=== PATIENT | male | born 1950 | race Caucasian/White ===

== ENCOUNTER → 2016-10-01 | Outpatient (CLI) | payer MEDICARE ==
[2016-10-01 16:09] LABS: Anisocytosis Moderate; Basophils % (A) 1 %; CHCM 33.8; Eosinophils % (A) 1 %; HCT 29.9 % (39.0-53.0); HGB 9.7 gm/dL (13.0-17.5); Luc # (Auto) 0.09; Luc % (Auto) 3; Lymphocytes # (A) 0.4 k/uL (1.0-4.8); Lymphocytes % (A) 12 %; MCH 37.7 pg (25.0-35.0); MCHC 32.5 g/dL (31.0-37.0); MCV 115.9 fL (80.0-100.0); Macrocytosis Marked; Mean Platelet Volume 6.7; Monocytes # (A) 0.2 k/uL (0-1.0); Monocytes % (A) 8 %; Neutrophils # (A) 2.1 k/uL (1.3-7.7); Neutrophils % (A) 75 %; Poikilocytosis Moderate; RBC 2.58 m/uL (4.30-5.90); RDW 20.9 % (11.5-15.5); WBC 2.8 k/uL (3.8-10.6); WBC (Perox) 2.94
[2016-10-01 16:24] LABS: Phosphorous 3.3 mg/dL (2.5-4.5); Potassium 4.6 mmol/L (3.5-5.1); Total Protein 5.9 g/dL (6.3-8.2)
[2016-10-01 16:37] LABS: Polychromasia Present
[2016-10-01 17:58] LABS: Bilirubin, Delta 0.5 mg/dL (0.0-0.2); Calcium 9.4 mg/dL (8.4-10.2); Total Bilirubin 0.9 mg/dL (0.2-1.3)
[2016-10-01 19:11] LABS: Hemoglobin A1C 4.5 % (4.2-6.1)
== END | disposition home or self-care (01) ==
LOC: LABWHC1 15:27
PROVIDERS: ATTEND Psychiatry & Neurology Neurology
DX: E11.8 Type 2 diabetes mellitus with unspecified complications (principal); G04.81 Other encephalitis and encephalomyelitis
CPT/HCPCS: 36415; 80069; 80076; 83036; 85025

== ENCOUNTER → 2019-07-25 | Outpatient (CLI) | payer MEDICARE ==
--- NOTE | 2019-07-25 13:17 | CT ---
EXAMINATION TYPE: CT abdomen pelvis wo con DATE OF EXAM: 07/25/2019 COMPARISON: 11/28/2010 HISTORY: possible renal stone CT DLP: 1305 mGycm Examination of the solid and hollow viscera is limited given the lack of contrast. FINDINGS: LUNG BASES: Right lower lobe pleural effusion with AP dimension of 6 cm. Right basilar atelectasis an d parenchymal scarring. Granuloma left lower lobe. LIVER/GB: Cholecystectomy clips are noted be in place. No space-occupying hepatic lesion. PANCREAS: No pancreatic mass identified. No inflammatory process seen. SPLEEN: No evidence for splenomegaly. No intrasplenic lesions seen. ADRENALS: No adrenal nodules identified. No evidence for thickening. KIDNEYS: No evidence for renal mass. No nephrolithiasis. No hydronephrosis. BOWEL: Appendix has a normal appearance. No evidence of bowel obstruction. No inflammatory process. Lymph nodes: No evidence for adenopathy greater than 1 cm. Abdominal aorta: Atheromatous changes seen. No evidence for aneurysm. Genital organs: No significant abnormality. Other: No significant abnormality. IMPRESSION: 1. No evidence for nephrolithiasis or hydronephrosis. 2. Right basilar pleural effusion with atelectasis and chronic elevation right hemidiaphragm.
== END | disposition home or self-care (01) ==
LOC: RADCTMAIN 12:33
PROVIDERS: ATTEND Urology
DX: N23 Unspecified renal colic (principal); Z88.0 Allergy status to penicillin
CPT/HCPCS: 74176

== ENCOUNTER 2021-03-21 15:24 | Inpatient (IN) | payer MEDICARE ==
--- NOTE | 2021-03-21 15:43 | ED ---
SOB HPI - General Chief Complaint: Shortness of Breath Stated Complaint: high heart rate & SOB Time Seen by Provider: 03/21/21 15:32 Source: patient, family, RN notes reviewed, old records reviewed Mode of arrival: wheelchair Limitations: no limitations - History of Present Illness Initial Comments: This is a 70-year-old male history of multiple medical issues and pulmonary edema and atrial fibrillation in the past who presents with complaints of shor tness of breath this started yesterday and continued this morning some exertional dyspnea and heart rate went up to 9570 range. He has no chest pain fevers chills nausea vomiting sweats no increased edema to lower extremities he has tried use his CPAP more this morning it did help his breathing somewhat. No other current complaints or modifying factors patient does have to be helped with transfer by his . MD Complaint: shortness of breath - Related Data Home Medications Medication Instructions Recorded Confirmed Amiodarone [Cordarone] 100 mg PO DAILY 10/02/14 03/21/21 Tamsulosin HCl [Flomax] 0.4 mg PO BID 06/19/15 03/21/21 amLODIPine [Norvasc] 5 mg PO DAILY 07/09/16 03/21/21 Allopurinol [Zyloprim] 100 mg PO DAILY 03/21/21 03/21/21 Apixaban [Eliquis] 5 mg PO BID 03/21/21 03/21/21 Cholecalciferol [Vitamin D3 (25 25 mcg PO DAILY 03/21/21 03/21/21 Mcg = 1000 Iu)] Ferrous Sulfate [Feosol] 325 mg PO DAILY 03/21/21 03/21/21 Folic Acid 0.8 mg PO DAILY 03/21/21 03/21/21 INSULIN ASPART (NovoLOG) [NovoLOG 25 - 30 unit SQ AC-TID 03/21/21 03/21/21 (formulary)] Insulin Glargine [Lantus] 36 unit SQ HS 03/21/21 03/21/21 Metoprolol Succinate [Toprol XL] 12.5 mg PO DAILY 03/21/21 03/21/21 Pravastatin Sodium [Pravachol] 40 mg PO HS 03/21/21 03/21/21 calcitrioL [Calcitriol] 0.25 mcg PO SALAZAR 03/21/21 03/21/21 hydrALAZINE HCL [Apresoline] 75 mg PO BID 03/21/21 03/21/21 Previous Rx's Medication Instructions Recorded Furosemide [Lasix] 40 mg PO BID@0900,1600 #60 tab 07/14/16 Allergies Allergy/AdvReac Type Severity Reaction Status Date / Time Penicillins Allergy Unknown Rash/Hives Verified 03/21/21 17:00 adhesive AdvReac Unknown Verified 03/21/21 17:00 Review of Systems ROS Statement: Those systems with pertinent positive or pertinent negative responses have been documented in the HPI. ROS Other: All systems not noted in ROS Statement are negative. Past Medical History Past Medical History: Atrial Fibrillation, Atrial Flutter, Diabetes Mellitus, Deep Vein Thrombosis (DVT), GERD/Reflux, Hyperlipidemia, Hypertension, Myocardial Infarction (CT), Neurologic Disorder, Prostate Disorder, Sleep Apnea/CPAP/BIPAP Additional Past Medical History / Comment(s): HX OF POLYPS, BLOOD IN STOOL,u ti's, arthritis, past tailbone fx per old hx and neuropathy to feet.UPPER BRIDGE. HX encephalopathy, meningioma. PT CAN'T HAVE ANY VACCINES THAT ARE LIVE VIRUSES. PLEASE USE PAPER TAPE ONLY(PT HAS THIN SKIN) NO LONGER TAKING MEDS FOR HYPERLIPIDEMia, since meningioma lt non dominant side was affected-able to use arm now but not lt leg. uses slide board at home to transfer pt to w/e but with 2 to assist pt can stand/pivot to chair Last Myocardial Infarction Date:: 02-11-2014 History of Any Multi-Drug Resistant Organisms: None Reported Past Surgical History: Adenoidectomy, Cardiac Ablation, Cholecystectomy, Coronary Bypass/CABG, Heart Catheterization With Stent, Orthopedic Surgery, Tonsillectomy Additional Past Surgical History / Comment(s): triple bypass, knee surg., Meningioma Removed from Brain 04/2013.peg tube, DESTINEY FILTER, RHOIT CATARACTS- LENS IMPLANTS, COLONOSCOPY/POLYPECTOMY, RT KNEE ARTHROSCOPY Past Anesthesia/Blood Transfusion Reactions: No Reported Reaction Date of Last Stent Placement:: 2004 Past Psychological History: Depression Smoking Status: Current every day smoker Past Alcohol Use History: None Reported Past Drug Use History: None Reported - Past Family History Father History Unknown: Yes Family Medical History: Congestive Heart Failure (CHF) Mother History Unknown: Yes Additional Family Medical History / Comment(s): STILL ALIVE AT AGE 90 IN [facility] General Exam - General Exam Comments Initial Comments: This is a well-developed well-nourished awake alert oriented 3 male Limitations: no limitations General appearance: alert Head exam: Present: atraumatic, normocephalic, normal inspection Eye exam: Present: normal appearance, PERRL, EOMI. Absent: scleral icterus, conjunctival injection, periorbital swelling ENT exam: Present: normal exam, mucous membranes moist Neck exam: Present: normal inspection. Absent: tenderness, meningismus, lym phadenopathy Respiratory exam: Present: rales, decreased breath sounds. Absent: respiratory distress, wheezes, rhonchi, stridor Cardiovascular Exam: Present: regular rate, normal rhythm, normal heart sounds. Absent: systolic murmur, diastolic murmur, rubs, gallop, clicks GI/Abdominal exam: Present: soft, normal bowel sounds. Absent: distended, tenderness, guarding, rebound, rigid Extremities exam: Present: full ROM, normal capillary refill, other (Stasis changes to lower extremities). Absent: tenderness, pedal edema, joint swelling, calf tenderness Back exam: Present: normal inspection Neurological exam: Present: alert, oriented X3, CN II-XII intact Psychiatric exam: Present: normal affect, normal mood Skin exam: Present: warm, dry, intact, normal color. Absent: rash Course Vital Signs 03/21/21 03/21/21 03/21/21 15:26 15:58 16:18 Temperature 98.5 F 99.1 F Pulse Rate 97 92 Respiratory 16 20 Rate Blood Pressure 138/76 151/74 O2 Sat by Pulse 97 94 L Oximetry 03/21/21 17:48 Temperature Pulse Rate 88 Respiratory 20 Rate Blood Pressure 151/74 O2 Sat by Pulse 98 Oximetry Medical Decision Making - Medical Decision Making I did discuss findings the patient and his as well as with Dr. Jon. Patient be admitted for inpatient evaluation and treatment - Lab Data Result diagrams: 03/21/21 15:56 03/21/21 15:56 Lab Results 03/21/21 03/21/21 03/21/21 Range/Units 15:56 15:56 15:56 WBC 9.8 (3.8-10.6) k/uL RBC 3.50 L (4.30-5.90) m/uL Hgb 10.8 L (13.0-17.5) gm/dL Hct 32.0 L (39.0-53.0) % MCV 91.4 (80.0-100.0) fL MCH 31.0 (25.0-35.0) pg MCHC 33.9 (31.0-37.0) g/dL RDW 14.7 (11.5-15.5) % Plt Count 289 (150-450) k/uL MPV 7.1 Neutrophils % 85 % Lymphocytes % 4 % Monocytes % 9 % Eosinophils % 1 % Basophils % 1 % Neutrophils # 8.3 H (1.3-7.7) k/uL Lymphocytes # 0.4 L (1.0-4.8) k/uL Monocytes # 0.9 (0-1.0) k/uL Eosinophils # 0.1 (0-0.7) k/uL Basophils # 0.1 (0-0.2) k/uL PT 11.5 (9.0-12.0) sec INR 1.1 (<1.2) APTT 24.8 (22.0-30.0) sec Sodium 141 (137-145) mmol/L Potassium 3.9 (3.5-5.1) mmol/L Chloride 107 (98-107) mmol/L Carbon Dioxide 15 L (22-30) mmol/L Anion Gap 19 mmol/L BUN 62 H (9-20) mg/dL Creatinine 3.97 H (0.66-1.25) mg/dL Est GFR (CKD-EPI)AfAm 16 (>60 ml/min/1.73 sqM) Est GFR (CKD-EPI)NonAf 14 (>60 ml/min/1.73 sqM) Glucose 259 H (74-99) mg/dL Calcium 10.5 H (8.4-10.2) mg/dL Magnesium 2.4 H (1.6-2.3) mg/dL Total Bilirubin 0.6 (0.2-1.3) mg/dL AST 20 (17-59) U/L ALT 21 (4-49) U/L Alkaline Phosphatase 133 H (38-126) U/L Creatine Kinase 65 (55-170) U/L Troponin I (0.000-0.034) ng/mL NT-Pro-B Natriuret Pep pg/mL Total Protein 7.2 (6.3-8.2) g/dL Albumin 4.5 (3.5-5.0) g/dL 03/21/21 03/21/21 Range/Units 15:56 15:56 WBC (3.8-10.6) k/uL RBC (4.30-5.90) m/uL Hgb (13.0-17.5) gm/dL Hct (39.0-53.0) % MCV (80.0-100.0) fL MCH (25.0-35.0) pg MCHC (31.0-37.0) g/dL RDW (11.5-15.5) % Plt Count (150-450) k/uL MPV Neutrophils % % Lymphocytes % % Monocytes % % Eosinophils % % Basophils % % Neutrophils # (1.3-7.7) k/uL Lymphocytes # (1.0-4.8) k/uL Monocytes # (0-1.0) k/uL Eosinophils # (0-0.7) k/uL Basophils # (0-0.2) k/uL PT (9.0-12.0) sec INR (<1.2) APTT (22.0-30.0) sec Sodium (137-145) mmol/L Potassium (3.5-5.1) mmol/L Chloride (98-107) mmol/L Carbon Dioxide (22-30) mmol/L Anion Gap mmol/L BUN (9-20) mg/dL Creatinine (0.66-1.25) mg/dL Est GFR (CKD-EPI)AfAm (>60 ml/min/1.73 sqM) Est GFR (CKD-EPI)NonAf (>60 ml/min/1.73 sqM) Glucose (74-99) mg/dL Calcium (8.4-10.2) mg/dL Magnesium (1.6-2.3) mg/dL Total Bilirubin (0.2-1.3) mg/dL AST (17-59) U/L ALT (4-49) U/L Alkaline Phosphatase (38-126) U/L Creatine Kinase (55-170) U/L Troponin I 0.029 (0.000-0.034) ng/mL NT-Pro-B Natriuret Pep 2530 pg/mL Total Protein (6.3-8.2) g/dL Albumin (3.5-5.0) g/dL - EKG Data -: EKG Interpreted by Me EKG shows normal: sinus rhythm EKG Comments: Sinus rhythm at 97. Interval 196 QRS 106 QT since QTC 396/[address]-T wave configuration prolonged QT noted - Radiology Data Radiology results: report reviewed (Imaging reviewed evidence of CHF with pleural effusions more on the right and the left question of infiltrate also seen. Please see complete report), image reviewed Critical Care Time Critical Care Time: Yes Total Critical Care Time: 31 Critical Care Time: Critical care time includes initial presentation with history physical labs x- rays reevaluation patient. Review of old charting. Discussed with the main physician discussion the family. Admission orders and documentation of the above Disposition Clinical Impression: Congestive heart failure, Acute kidney injury, Febrile illness, acute, Pn eumonia, Dyspnea Disposition: ADMITTED IP TO THIS [facility] Condition: Fair Referrals: Pablo Jon MD [Primary Care Provider] - 1-2 days
[2021-03-21 16:05] LABS: Basophils # (A) 0.1 k/uL (0-0.2); Basophils % (A) 1 %; Eosinophils # (A) 0.1 k/uL (0-0.7); Eosinophils % (A) 1 %; HGB 10.8 gm/dL (13.0-17.5); Lymphocytes # (A) 0.4 k/uL (1.0-4.8); Lymphocytes % (A) 4 %; MCHC 33.9 g/dL (31.0-37.0); MCV 91.4 fL (80.0-100.0); Mean Platelet Volume 7.1; Monocytes # (A) 0.9 k/uL (0-1.0); Monocytes % (A) 9 %; Neutrophils # (A) 8.3 k/uL (1.3-7.7); Neutrophils % (A) 85 %; Platelet Count 289 k/uL (150-450); RDW 14.7 % (11.5-15.5); WBC 9.8 k/uL (3.8-10.6)
[2021-03-21 16:18] LABS: Albumin 4.5 g/dL (3.5-5.0); Calcium 10.5 mg/dL (8.4-10.2); Magnesium 2.4 mg/dL (1.6-2.3); Potassium 3.9 mmol/L (3.5-5.1); Total Bilirubin 0.6 mg/dL (0.2-1.3); Total Protein 7.2 g/dL (6.3-8.2)
[2021-03-21 16:23] LABS: INR 1.1 (<1.2); Partial Thromboplastin Time 24.8 sec (22.0-30.0); Prothrombin Time 11.5 sec (9.0-12.0)
--- NOTE | 2021-03-21 17:20 | XR ---
EXAMINATION TYPE: XR chest 2V DATE OF EXAM: 03/21/2021 COMPARISON: Chest x-ray July 09, 2016 HISTORY: Shortness of breath and tachycardia TECHNIQUE: Frontal and lateral views of the chest are obtained. FINDINGS: Overlying sternal wires are redemonstrated. Persistent mild cardiomegaly. Persistent low l arya volumes with central vascular congestion and right mid to basilar opacity. Small to moderate righ t greater than left pleural effusions. IMPRESSION: Low lung volumes. Correlate for CHF exacerbation as there is cardiomegaly with mild cent ral vascular congestion and small to moderate size right greater than left pleural effusions. In tarik tion there is underlying right mid to lower lung acute infiltrate and/or atelectasis thought Present.
[2021-03-21] MEDS ORDERED: FUROSEMIDE 10 MG/ML 4 ML VIAL IV STA (17:58)
[2021-03-21] MEDS ORDERED: LEVOFLOXACIN 500MG-D5W PMX 500 MG in DEXTROSE/WATER 1 100ML.BAG IVPB STA (18:09)
[2021-03-21] MEDS: PRAVASTATIN SODIUM 40 MG TAB PO SCH (22:01)
[2021-03-21] MEDS: hydrALAZINE HCL 25 MG TAB PO SCH (22:01)
[2021-03-21] MEDS: APIXABAN 5 MG TAB PO SCH (22:01)
[2021-03-21] MEDS: TAMSULOSIN 0.4 MG CAP.ER.24H PO SCH (22:01)
[2021-03-21] MEDS: FUROSEMIDE 10 MG/ML 4 ML VIAL IV SCH (22:01)
[2021-03-21] MEDS: INSULIN DETEMIR (LEVEMIR) 100 UNIT/ML SYR SQ SCH (22:10)
[2021-03-22] MEDS ORDERED: METOPROLOL SUCCINATE (ER) 25 MG TAB.ER.24H PO SCH (09:00)
[2021-03-22] MEDS ORDERED: CHOLECALCIFEROL 25 MCG (1000 IU) TABLET PO SCH (09:00)
[2021-03-22] MEDS ORDERED: FUROSEMIDE 40 MG TAB PO SCH ×2 (09:00)
[2021-03-22] MEDS: FUROSEMIDE 10 MG/ML 4 ML VIAL IV SCH ×2 (09:49→20:53)
[2021-03-22] MEDS: amLODIPine 5 MG TAB PO SCH (09:50)
[2021-03-22] MEDS: FERROUS SULFATE 325 MG TAB PO SCH (09:50)
[2021-03-22] MEDS: APIXABAN 5 MG TAB PO SCH ×2 (09:51→20:52)
[2021-03-22] MEDS: FOLIC ACID 1 MG TAB PO SCH (09:51)
[2021-03-22] MEDS: METOPROLOL SUCCINATE (ER) 25 MG TAB.ER.24H PO SCH (09:52)
[2021-03-22] MEDS: allopurinoL 100 MG TAB PO SCH (09:52)
[2021-03-22] MEDS: TAMSULOSIN 0.4 MG CAP.ER.24H PO SCH ×2 (09:52→20:52)
[2021-03-22] MEDS: hydrALAZINE HCL 25 MG TAB PO SCH ×2 (09:52→20:52)
[2021-03-22] MEDS: INSULIN ASPART (NovoLOG) 100 UNIT/ML VIAL SQ SCH ×3 (11:19→17:17)
[2021-03-22 11:20] LABS: Glucose,Whole Blood 308 mg/dL (75-99)
[2021-03-22] MEDS: AMIODARONE 100 MG TAB PO SCH (11:23)
--- NOTE | 2021-03-22 11:59 | CONS ---
CONSULTATION CHIEF COMPLAINT: Shortness of breath and palpitations. HISTORY OF PRESENT ILLNESS: Mr. Guzman is a 70-year-old gentleman with history of coronary artery disease status post CABG, paroxysmal atrial fibrillation, history of benign brain tumor status post surgery with left lower extremity paralysis who comes to the hospital complaining of shortness of breath, fatigue, tiredness and not feeling well for the last few days and also had fast heart rate. Due to this, he came to the hospital and is admitted with a diagnosis of congestive heart failure. His BNP was elevated. He has pulmonary congestion and mild lower extremity edema bilaterally. At the time of my evaluation, he appears comfortable at rest. Heart rate is in the 90s. Blood pressure is well controlled. The patient is in sinus rhythm. Normally his heart rate is in the 70s. He does not have any chest pain. He denies PND or orthopnea. The patient's physical activity is very limited. He ambulates with a wheelchair. He has apixaban for anticoagulation. PAST MEDICAL HISTORY: Significant for paroxysmal atrial fibrillation, coronary artery disease status post CABG, hypertension, dyslipidemia, diabetes. Sleep apnea on BiPAP ALLERGIES: THE PATIENT IS ALLERGIC TO PENICILLIN AND ADHESIVE TAPE. CURRENT MEDICATIONS: Include insulin, Toprol-XL, Pravachol 40 daily, hydralazine 75 b.i.d., iron, amiodarone 100 mg daily, Flomax 0.4 b.i.d., Norvasc 5 daily, Zyloprim and Eliquis 5 b.i.d. FAMILY HISTORY: Negative for premature coronary artery disease. SOCIAL HISTORY: Negative for current smoking, EtOH abuse, or drug abuse. REVIEW OF SYSTEMS: HEENT is unremarkable.. CARDIAC as described above. RESPIRATORY as described above. GI negative. GENITOURINARY: Negative. ALLERGY/IMMUNOLOGY: None. SKIN negative. MUSCULOSKELETAL: Significant for arthritis. PSYCHOSOCIAL negative. ENDOCRINE: Negative. DERM negative. CONSTITUTIONAL: Significant for fatigue and tiredness. ONCOLOGICAL: Negative. Rest of the system review is not relevant. PHYSICAL EXAMINATION: On exam, patient is comfortable at rest. Afebrile. Heart rate is 90 beats per minute. Blood pressure is 148/84, respiratory rate is 18, O2 saturation is 98% on 2 L. NECK: There is no jugular venous distention. CHEST exam reveals diminished air entry with occasional crackles. HEART exam reveals first and second heart sounds and an ejection systolic murmur at the lower sternal border. ABDOMEN: Soft. Exam of EXTREMITIES reveals bilateral 2+ pitting edema. Peripheral pulses are palpable. LABS: Show a hemoglobin of 10.8. Potassium is 3.9. BUN is 62, creatinine is 3.9. BNP is elevated at 2530. EKG shows sinus rhythm with nonspecific ST-T wave changes. ASSESSMENT: 1. Acute exacerbation of chronic congestive heart failure. 2. Paroxysmal atrial fibrillation. 3. Coronary artery disease status post coronary artery bypass grafting. 4. History of meningioma of the brain status post surgery. 5. Paralysis of the left lower extremity. 6. Hypertension. PLAN: I will treat the patient with IV Lasix, increase the dose of beta smith. Obtain a 2D echo. Continue the current antihypertensives that he is on and also continue the Eliquis. If necessary, I will increase the dose of amiodarone to 200 mg daily. The patient has chronic renal failure. MMODL / IJN: [id number] /
--- NOTE | 2021-03-22 12:00 | P.NPCON ---
History of Present Illness - Reason for Consult chronic renal failure - History of Present Illness Reason for consultation: Chronic kidney disease History of present illness: Patient is a 70-year-old male seen in renal consultation for chronic kidney disease. Patient has chronic kidney disease stage V secondary to cardiorenal syndrome and diabetic kidney disease. Patient presented to the hospital with shortness of breath. Patient states shortness of breath started about 3 days ago after he returned from [place]. Patient states while he was a [place] he wasn't drinking much fluids. He has been voiding. No hematuria or dysuria. Denies use of nonsteroidals. Oral intake is fair. No vomiting or diarrhea. Blood pressures stable. Chest x-ray suggestive of fluid overload. He is maintained on IV Lasix. Currently on 2 L nasal cannula. Patient has history of diastolic CHF. No fever or chills. No cough. No abdominal pain. No edema. He does take oral Lasix at home. He has long- standing history of diabetes mellitus. Patient states recent A1c was near 7%. Vital signs are stable. General: The patient appeared well nourished and normally developed. HEENT: Head exam is unremarkable. Neck is without jugular venous distension. LUNGS: Breath sounds decreased. HEART: Rate and Rhythm are regular. ABDOMEN: Soft, no distention. EXTREMITITES: No edema. Past Medical History Past Medical History: Atrial Fibrillation, Atrial Flutter, Diabetes Mellitus, Deep Vein Thrombosis (DVT), GERD/Reflux, Hyperlipidemia, Hypertension, Myocardial Infarction ([place]), Neurologic Disorder, Prostate Disorder, Sleep Apnea/CPAP/BIPAP Additional Past Medical History / Comment(s): HX OF POLYPS, BLOOD IN STOOL,uti's, arthritis, past tailbone fx per old hx and neuropathy to feet.UPPER BRIDGE. HX encephalopathy, meningioma. PT CAN'T HAVE ANY VACCINES THAT ARE LIVE VIRUSES. PLEASE USE PAPER TAPE ONLY(PT HAS THIN SKIN) NO LONGER TAKING MEDS FOR HYPERLIPIDEMia, since meningioma lt non dominant side was affected-able to use arm now but not lt leg. uses slide board at home to transfer pt to w/e but with 2 to assist pt can stand/pivot to chair Last Myocardial Infarction Date:: 02-11-2005 History of Any Multi-Drug Resistant Organisms: None Reported Past Surgical History: Adenoidectomy, Cardiac Ablation, Cholecystectomy, Coronary Bypass/CABG, Heart Catheterization With Stent, Orthopedic Surgery, Tonsillectomy Additional Past Surgical History / Comment(s): triple bypass, knee surg., Meningioma Removed from Brain 04/2013.peg tube, DESTINEY FILTER, ROHIT CATARACTS- LENS IMPLANTS, COLONOSCOPY/POLYPECTOMY, RT KNEE ARTHROSCOPY Past Anesthesia/Blood Transfusion Reactions: No Reported Reaction Date of Last Stent Placement:: 2004 Additional Psychological History / Comment(s): PT UNABLE TO AMBULATE BUT ABLE TO STAND WITH ASSIST OF 2 /PIVOT TO W/C OR MOTORIZED CHAIR. 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 Smoking Status: Never smoker Past Alcohol Use History: None Reported Past Drug Use History: None Reported - Past Family History Father History Unknown: Yes Family Medical History: Congestive Heart Failure (CHF) Mother History Unknown: Yes Additional Family Medical History / Comment(s): STILL ALIVE AT AGE 90 IN [facility] Medications and Allergies Home Medications Medication Instructions Recorded Confirmed Type Amiodarone [Cordarone] 100 mg PO DAILY 10/02/14 03/21/21 History Tamsulosin HCl [Flomax] 0.4 mg PO BID 06/19/15 03/21/21 History amLODIPine [Norvasc] 5 mg PO DAILY 07/09/16 03/21/21 History Furosemide [Lasix] 40 mg PO BID@0900,1600 #60 tab 07/14/16 03/21/21 Rx Allopurinol [Zyloprim] 100 mg PO DAILY 03/21/21 03/21/21 History Apixaban [Eliquis] 5 mg PO BID 03/21/21 03/21/21 History Cholecalciferol [Vitamin D3 (25 25 mcg PO DAILY 03/21/21 03/21/21 History Mcg = 1000 Iu)] Ferrous Sulfate [Feosol] 325 mg PO DAILY 03/21/21 03/21/21 History Folic Acid 0.8 mg PO DAILY 03/21/21 03/21/21 History INSULIN ASPART (NovoLOG) [NovoLOG 25 - 30 unit SQ AC-TID 03/21/21 03/21/21 History (formulary)] Insulin Glargine [Lantus] 36 unit SQ HS 03/21/21 03/21/21 History Metoprolol Succinate [Toprol XL] 12.5 mg PO DAILY 03/21/21 03/21/21 History Pravastatin Sodium [Pravachol] 40 mg PO HS 03/21/21 03/21/21 History calcitrioL [Calcitriol] 0.25 mcg PO SALAZAR 03/21/21 03/21/21 History hydrALAZINE HCL [Apresoline] 75 mg PO BID 03/21/21 03/21/21 History Allergies Allergy/AdvReac Type Severity Reaction Status Date / Time Penicillins Allergy Unknown Rash/Hives Verified 03/21/21 17:00 adhesive AdvReac Unknown Verified 03/21/21 17:00 Physical Exam Vitals: Vital Signs Temp Pulse Pulse Resp BP BP Pulse Ox 03/22/21 11:24 98.4 F 82 18 135/74 99 03/22/21 08:00 98.0 F 90 19 158/79 98 03/21/21 22:01 83 16 147/77 98 03/21/21 18:29 98.6 F 94 18 148/84 100 03/21/21 17:48 88 20 151/74 98 03/21/21 16:18 99.1 F 03/21/21 15:58 92 20 151/74 94 L 03/21/21 15:26 98.5 F 97 16 138/76 97 Intake and Output 03/21/21 03/22/21 03/22/21 22:59 06:59 14:59 Output Total 900 900 Balance -900 -900 Output: Urine 900 900 Other: Voiding Method Urinal # Voids 1 Weight 127.006 kg Results - Lab Results Most recent lab results Calcium 10.5 mg/dL (8.4-10.2) H 03/21/21 15:56 Magnesium 2.4 mg/dL (1.6-2.3) H 03/21/21 15:56 03/21/21 15:56 03/21/21 15:56 Assessment and Plan Plan: Assessment: 1. Chronic kidney disease stage V secondary to diabetic kidney disease and cardiorenal syndrome. 2. Volume overload. 3. Acute on chronic diastolic CHF. 4. Metabolic acidosis secondary to chronic kidney disease. 5. Hypercalcemia secondary to vitamin D and calcitriol. 6. Hypertension with chronic kidney disease. 7. Diabetes mellitus. Plan: Maintain IV Lasix 40 mg twice daily. Stop vitamin D and calcitriol. Add oral sodium bicarbonate. Avoid nephrotoxins. Continue to assess daily for need for renal present therapy. Patient quite hesitant to start. Family also present at bedside. Thank you for the consultation. I will continue to follow the patient with you during his hospital stay.
[2021-03-22] MEDS: SODIUM BICARBONATE TAB 650 MG TAB PO SCH ×3 (12:18→20:52)
[2021-03-22 12:19] LABS: Glucose,Whole Blood 277 mg/dL (75-99)
--- NOTE | 2021-03-22 12:54 | ECHOF ---
Referral Reason:chf MEASUREMENTS -------- HEIGHT: 180.3 cm WEIGHT: 127.0 kg BP: RVIDd: 3.0 cm (< 3.3) IVSd: 0.9 cm (0.6 - 1.1) LVIDd: 4.8 cm (3.9 - 5.3) LVPWd: 1.4 cm (0.6 - 1.1) IVSs: 1.8 cm LVIDs: 2.6 cm LVPWs: 1.9 cm Ao Diam: 3.6 cm (2.0 - 3.7) AV Cusp: 1.9 cm (1.5 - 2.6) LA Diam: 4.1 cm (2.7 - 3.8) MV EXCURSION: 17.310 mm (> 18.000) MV EF SLOPE: 97 mm/s (70 - 150) EPSS: 0.8 cm MV E Gustavo: 1.41 m/s MV DecT: 208 ms MV A Gustavo: 0.85 m/s MV E/A Ratio: 1.65 AV maxP.79 mmHg AV meanP.32 mmHg RAP: 5.00 mmHg RVSP: 18.48 mmHg FINDINGS -------- This was a technically difficult study with suboptimal views. The left ventricular size is normal. There is mild concentric left ventricular hypertrophy. Overa ll left ventricular systolic function is low-normal with, an EF between 50 - 55 %. Normal LAP Grade 1 Diastolic Dysfunction. Apical inferior LV wall motion is hypokinetic. Apical septum LV wall m otion is hypokinetic. The right ventricle is normal in size. Paradoxical motion of the right ventricular septum is consis tent with post operative status. The left atrial size is normal. Normal LA size by volume 22+/-6 ml/m2. The right atrial size is normal. Lumason used Unable to visualize the septum. Aortic valve is trileaflet and is mildly thickened. There is mild aortic stenosis present. Peak/m ivon gradient across the Aortic Valve is 16.79mmHg / 10.32mmHg. The mitral valve is normal. Mild mitral regurgitation is present. The tricuspid valve appears structurally normal. Mild tricuspid regurgitation present. Right vent ricular systolic pressure is normal at < 35 mmHg. There is no pulmonic regurgitation present. The aortic root size is normal. IVC Not well visulized. There is no pericardial effusion. CONCLUSIONS -------- 1. The left ventricular size is normal. 2. There is mild concentric left ventricular hypertrophy. 3. Overall left ventricular systolic function is low-normal with, an EF between 50 - 55 %. 4. Normal LAP Grade 1 Diastolic Dysfunction. 5. Apical inferior LV wall motion is hypokinetic. 6. Apical septum LV wall motion is hypokinetic. 7. Paradoxical motion of the right ventricular septum is consistent with post operative status. 8. Aortic valve is trileaflet and is mildly thickened. 9. There is mild aortic stenosis present. 10. Peak/mean gradient across the Aortic Valve is 16.79mmHg / 10.32mmHg. 11. Mild mitral regurgitation is present. 12. Mild tricuspid regurgitation present. 13. There is no pericardial effusion. INSIDE SALES COORDINATOR: Demi Tucker RDCS
[2021-03-22 13:39] VITALS: BMI 39.0
[2021-03-22] MEDS ORDERED: traMADol 50 MG TAB PO PRN (14:37)
--- NOTE | 2021-03-22 15:38 | P.HPIM ---
History of Present Illness H&P Date: 03/22/21 Chief Complaint: increased shortness of breath. HISTORY OF PRESENT ILLNESS: this is a 70-year-old male with a previous medical history significant for hypertension and hypertensive cardiovascular disease with left ventricular hypertrophy, hyperlipidemia, diabetes mellitus type 2, with diabetic polyneuropathy, history of coronary artery disease status post coronary artery bypass graft x3 followed by per continue his current intervention and stent this point, history of atrial for relation status post ablation, history of meningioma status post resection back in April 2013 with left-sided weakness, history of chronic kidney disease stage IV currently under the care of nephrology, history of anemia of chronic kidney disease, history of secondary hyperparathyroidism, patient was in his usual state of health about 2 days ago when he developed to have an increased shortness breath associated with increased swelling in both upper and lower extremities, patient was struggling quite a bit with breathing he ended up coming to the emergency department at [facility] yesterday, he had a chest x-ray that didn't show pulmonary venous congestion as well as bilateral pleural effusion suggestive of congestive heart failure, patient also had possible infiltrate suggestive of atelectasis versus pneumonia few he was started on IV Lasix 40 mg IV push every 12 hours as well as IV antibiotic and he was admitted to the hospital for evaluation by nephrology as well as cardiology, patient will be admitted to a telemetry unit. REVIEW OF SYSTEMS: Constitutional: No documented fever, no chills, no night sweats. No weight change. positive for weakness, fatigue or lethargy. No daytime sleepiness. HEENT: No headache. No blurred vision or double vision, no loss of vision. No loss of Hearing, no ringing in the ears, no dizziness. No nasal drainage or congestion. No epistaxis. No sore throat. Lungs: positive for shortness of breath, no cough, no sputum production. No wheezing. Reports dyspnea with activity. Cardiovascular: No chest pain, no lower extremity edema. No palpitations. No paroxysmal nocturnal dyspnea. No orthopnea. No lightheadedness or dizziness. No syncopal episodes. Abdominal: Reports no abdominal pain. No nausea, vomiting. No diarrhea. No constipation. No bloody or tarry stools reports loss of appetite. Genitourinary: No dysuria, increased frequency, urgency. No urinary retention. Musculoskeletal: No myalgias. positive for left sided weakness, positive for gait dysfunction, no frequent falls. positive for back pain. positive for neck pain. Integumentary: No wounds, no lesions. No rash or pruritus. No unusual bru ising. No change in hair or nails. Neurologic: No aphasia. No facial droop. No change in mentation. No head injury. No headache, positive for left sided weakness and left foot drop. Psychiatric: positive for depression. No anxiety. No mood swings. Endocrine: No abnormal blood sugars. No weight change. PAST MEDICAL HISTORY: coronary artery disease status post coronary artery bypass graft 3 with PCI. Hypertension and hypertensive cardio vascular disease. Hyperlipidemia. Diabetes mellitus type 2. History of meningioma status post resection April 2013 with resultant left- sided weakness. Atrial fibrillation. Diabetic polyneuropathy. Enlarged prostate. GERD. DVT. Osteoarthritis. Chronic kidney disease stage IV. Anemia of chronic kidney disease. Secondary hyperparathyroidism. PAST SURGICAL HISTORY: CABG 3. Left heart catheterization with PCI. Bilateral cataract surgery with implants. Right arthroscopic knee surgery. Meningioma resection with resultant left-sided weakness. Tonsillectomy and adenoidectomy. Cholecystectomy. EGD and colonoscopy. Cardiac ablation. IVC Bath filter placement. SOCIAL HISTORY: patient is a lifelong nonsmoker he denies any history of drinking he denies any history of drug use or abuse he currently lives with his , he uses a sliding board, he uses a wheelchair and a scooter to ambulate around. FAMILY HISTORY: Mother at age of 92 from natural causes, father at age of 83 from congestive heart failure, patient has one adopted brother, 2 sisters who are okay, patient has one son with no major medical problems and one daughter with hypothyroidism. PHYSICAL EXAMINATION: General: this is a 70-year-old male who is sitting up in bed appears to be in minimal respiratory distress. HEENT: Head is atraumatic, normocephalic, pupils were equal round reactive to light and recommendation, extraocular muscle movement were intact, sclera nonicteric, conjunctivae were pale, mucous membranes of the mouth are somewhat dry. Neck: Supple, no JVP, normal carotid upstroke bilaterally, no lymphadenopathy. Chest: Decreased breath sounds at the bases with decreased tactile fremitus, few rhonchi, no expiratory wheezes, no chest wall tenderness, no intercostal retractions. Heart: First heart sound is normal, second heart sounds normal, irregularly irregular, there is systolic initial murmur 2/6 located in the left sternal border. Abdomen: Soft, nontender, nondistended, positive bowel sounds. Extremities: There is +2 edema no calf tenderness DP +2 bilaterally. Neurologic examination: Patient is awake alert and oriented X3 , cranial nerves II-12 appear grossly intact, there is left-sided weakness with left foot drop. ASSESSMENT AND PLAN: 1. acute diastolic heart failure with bilateral pleural effusion. Continue patient on metoprolol 25 mg orally once every day, continue patient on Lasix 40 mg IV push every 12 hours, monitor input and output and daily weight, continue patient also on hydralazine 75 mg orally twice every day , echocardiogram will be done, cardiology consultation. 2. history of CAD post CABG as well as PCI and stent placement. Continue patient on metoprolol ER 25 mg once every day, pravastatin 40 mg at bedtime. 3. history of atrial fibrillation. Continue patient on Eliquis 5 mg orally twice every day, continue amiodarone 100 mg orally once every day, metoprolol ER 25 mg orally once every day. 4. Bilateral pleural effusion with bilateral atelectasis doubt pneumonia patient did receive a dose of Levaquin 500 mg IV piggyback 1, we will monitor the patient very closely. 5. Hypertension and hypertensive cardiovascular disease. Continue patient on amlodipine 5 mg once every day, continue with metoprolol ER 25 mg orally once every day, monitor the patient blood pressure very closely. 6. Hyperlipidemia. Continue patient on pravastatin 40 mg at bedtime, monitor lipid panel, keep LDL 55-70. 7. Chronic kidney disease stage IV. Continue patient on sodium bicarbonate 650 mg orally 3 times every day, follow-up with nephrology. 8. History of enlarged prostate. Continue Flomax 0.4 mg once every day. 9. Diabetes mellitus type 2. Continue Lantus 36 units at bedtime along with NovoLog 25 units before each been 3 times every day, monitor the patient blood glucose level III times every day. 10. Diabetic polyneuropathy. Stable. 11. History of DVT status post IVC filter placement, continue with Eliquis 5 mg orally twice every day. 12. history of gout. Continue patient on allopurinol 100 mg orally once every day. 13. History of meningioma with left-sided weakness. Physical therapy evaluation. 14. Admit to inpatient. Estimate a length of stay 2 midnights. 15. Patient is a full code. Past Medical History Past Medical History: Atrial Fibrillation, Atrial Flutter, Coronary Artery Disease (CAD), Diabetes Mellitus, Deep Vein Thrombosis (DVT), GERD/Reflux, Hyperlipidemia, Hypertension, Myocardial Infarction ([place]), Neurologic Disorder, Prostate Disorder, Sleep Apnea/CPAP/BIPAP Additional Past Medical History / Comment(s): HX OF POLYPS, BLOOD IN STOOL,uti's, arthritis, past tailbone fx per old hx and neuropathy to feet.UPPER BRIDGE. HX encephalopathy, meningioma. PT CAN'T HAVE ANY VACCINES THAT ARE LIVE VIRUSES. PLEASE USE PAPER TAPE ONLY(PT HAS THIN SKIN) NO LONGER TAKING MEDS FOR HYPERLIPIDEMia, since meningioma lt non dominant side was affected-able to use arm now but not lt leg. uses slide board at home to transfer pt to w/e but with 2 to assist pt can stand/pivot to chair Last Myocardial Infarction Date:: 02-11-2005 History of Any Multi-Drug Resistant Organisms: None Reported Past Surgical History: Adenoidectomy, Cardiac Ablation, Cholecystectomy, Coronary Bypass/CABG, Heart Catheterization With Stent, Orthopedic Surgery, Tonsillectomy Additional Past Surgical History / Comment(s): triple bypass, knee surg., Meningioma Removed from Brain 04/2013.peg tube, DESTINEY FILTER, ROHIT CATARACTS- LENS IMPLANTS, COLONOSCOPY/POLYPECTOMY, RT KNEE ARTHROSCOPY Past Anesthesia/Blood Transfusion Reactions: No Reported Reaction Date of Last Stent Placement:: 2004 Additional Psychological History / Comment(s): PT UNABLE TO AMBULATE BUT ABLE TO STAND WITH ASSIST OF 2 /PIVOT TO W/C OR MOTORIZED CHAIR. 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 Smoking Status: Never smoker Past Alcohol Use History: None Reported Past Drug Use History: None Reported - Past Family History Father History Unknown: Yes Family Medical History: Congestive Heart Failure (CHF) Mother History Unknown: Yes Additional Family Medical History / Comment(s): STILL ALIVE AT AGE 90 IN [facility] Medications and Allergies Home Medications Medication Instructions Recorded Confirmed Type Amiodarone [Cordarone] 100 mg PO DAILY 10/02/14 03/21/21 History Tamsulosin HCl [Flomax] 0.4 mg PO BID 06/19/15 03/21/21 History amLODIPine [Norvasc] 5 mg PO DAILY 07/09/16 03/21/21 History Furosemide [Lasix] 40 mg PO BID@0900,1600 #60 tab 07/14/16 03/21/21 Rx Allopurinol [Zyloprim] 100 mg PO DAILY 03/21/21 03/21/21 History Apixaban [Eliquis] 5 mg PO BID 03/21/21 03/21/21 History Cholecalciferol [Vitamin D3 (25 25 mcg PO DAILY 03/21/21 03/21/21 History Mcg = 1000 Iu)] Ferrous Sulfate [Feosol] 325 mg PO DAILY 03/21/21 03/21/21 History Folic Acid 0.8 mg PO DAILY 03/21/21 03/21/21 History INSULIN ASPART (NovoLOG) [NovoLOG 25 - 30 unit SQ AC-TID 03/21/21 03/21/21 History (formulary)] Insulin Glargine [Lantus] 36 unit SQ HS 03/21/21 03/21/21 History Metoprolol Succinate [Toprol XL] 12.5 mg PO DAILY 03/21/21 03/21/21 History Pravastatin Sodium [Pravachol] 40 mg PO HS 03/21/21 03/21/21 History calcitrioL [Calcitriol] 0.25 mcg PO SALAZAR 03/21/21 03/21/21 History hydrALAZINE HCL [Apresoline] 75 mg PO BID 03/21/21 03/21/21 History Allergies Allergy/AdvReac Type Severity Reaction Status Date / Time Penicillins Allergy Unknown Rash/Hives Verified 03/21/21 17:00 adhesive AdvReac Unknown Verified 03/21/21 17:00 Physical Exam Vitals: Vital Signs Temp Pulse Pulse Resp BP BP Pulse Ox 03/22/21 12:05 98.7 F 85 18 163/78 96 03/22/21 11:24 98.4 F 82 18 135/74 99 03/22/21 08:00 98.0 F 90 19 158/79 98 03/21/21 22:01 83 16 147/77 98 03/21/21 18:29 98.6 F 94 18 148/84 100 03/21/21 17:48 88 20 151/74 98 03/21/21 16:18 99.1 F 03/21/21 15:58 92 20 151/74 94 L 03/21/21 15:26 98.5 F 97 16 138/76 97 Intake and Output 03/21/21 03/22/21 03/22/21 22:59 06:59 14:59 Output Total 900 900 Balance -900 -900 Output: Urine 900 900 Other: Voiding Method Urinal # Voids 1 Weight 127.006 kg 127.006 kg Results CBC & Chem 7: 03/21/21 15:56 03/21/21 15:56 Labs: Abnormal Lab Results - Last 24 Hours (Table) 03/21/21 03/21/21 03/22/21 Range/Units 15:56 15:56 11:18 RBC 3.50 L (4.30-5.90) m/uL Hgb 10.8 L (13.0-17.5) gm/dL Hct 32.0 L (39.0-53.0) % Neutrophils # 8.3 H (1.3-7.7) k/uL Lymphocytes # 0.4 L (1.0-4.8) k/uL Carbon Dioxide 15 L (22-30) mmol/L BUN 62 H (9-20) mg/dL Creatinine 3.97 H (0.66-1.25) mg/dL Glucose 259 H (74-99) mg/dL POC Glucose (mg/dL) 308 H (75-99) mg/dL Calcium 10.5 H (8.4-10.2) mg/dL Magnesium 2.4 H (1.6-2.3) mg/dL Alkaline Phosphatase 133 H (38-126) U/L 03/22/21 Range/Units 12:14 RBC (4.30-5.90) m/uL Hgb (13.0-17.5) gm/dL Hct (39.0-53.0) % Neutrophils # (1.3-7.7) k/uL Lymphocytes # (1.0-4.8) k/uL Carbon Dioxide (22-30) mmol/L BUN (9-20) mg/dL Creatinine (0.66-1.25) mg/dL Glucose (74-99) mg/dL POC Glucose (mg/dL) 277 H (75-99) mg/dL Calcium (8.4-10.2) mg/dL Magnesium (1.6-2.3) mg/dL Alkaline Phosphatase (38-126) U/L Thrombosis Risk Factor Assmnt - Choose All That Apply Each Risk Factor Represents 2 Points: Age 61-74 years Thrombosis Risk Factor Assessment Total Risk Factor Score: 2 Thrombosis Risk Factor Assessment Level: Low Risk
[2021-03-22 17:17] LABS: Glucose,Whole Blood 164 mg/dL (75-99)
[2021-03-22] MEDS: PRAVASTATIN SODIUM 40 MG TAB PO SCH (20:52)
[2021-03-22] MEDS: INSULIN DETEMIR (LEVEMIR) 100 UNIT/ML SYR SQ SCH (20:52)
[2021-03-22 20:54] LABS: Glucose,Whole Blood 130 mg/dL (75-99)
[2021-03-23 06:31] LABS: Glucose,Whole Blood 207 mg/dL (75-99)
[2021-03-23] MEDS: INSULIN ASPART (NovoLOG) 100 UNIT/ML VIAL SQ SCH ×3 (07:04→17:20)
--- NOTE | 2021-03-23 09:31 | P.PN ---
Subjective Patient is admitted for the chronic diastolic dysfunction with acute exacerbation patient is also found to have cardiac renal syndrome with elevated creatinine up to 3.5 baseline around 1.8. Patient remains on hemodialysis had urine output of around 800 mL today. Patient is respiratory status improved feeling better today. Constitutional: Denied any fatigue denied any fever. Cardio vascular: denied any chest pain, palpitations Gastrointestinal denied any nausea vomiting Pulmonary: Denied any shortness of breath cough Neurologic denied any new focal deficits All inpatient medications were reviewed and appropriate changes in these medications as dictated in the interval history and assessment and plan. PHYSICAL EXAMINATION: GENERAL: The patient is alert and oriented x3, not in any acute distress. Well developed, well nourished. HEENT: Pupils are round and equally reacting to light. EOMI. No scleral icterus. No conjunctival pallor. Normocephalic, atraumatic. No pharyngeal erythema. No thyromegaly. CARDIOVASCULAR: S1 and S2 present. No murmurs, rubs, or gallops. PULMONARY: Chest is clear to auscultation, no wheezing or crackles. ABDOMEN: Soft, nontender, nondistended, normoactive bowel sounds. No palpable organomegaly. MUSCULOSKELETAL: No joint swelling or deformity. EXTREMITIES: No cyanosis, clubbing, or pedal edema. NEUROLOGICAL: Gross neurological examination did not reveal any focal deficits. SKIN: No rashes. ASSESSMENT AND PLAN: 1. acute diastolic heart failure with bilateral pleural effusion. Continue patient on metoprolol 25 mg orally once every day, continue patient on Lasix 40 mg IV push every 12 hours, monitor input and output and daily weight, continue patient also on hydralazine 75 mg orally twice every day , echocardiogram will be done, cardiology consultation. 2. history of CAD post CABG as well as PCI and stent placement. Continue patient on metoprolol ER 25 mg once every day, pravastatin 40 mg at bedtime. 3. history of atrial fibrillation. Continue patient on Eliquis 5 mg orally twice every day, continue amiodarone 100 mg orally once every day, metoprolol ER 25 mg orally once every day. 4. Bilateral pleural effusion with bilateral atelectasis , no evidence of pneumonia secondary to heart failure. 5. Hypertension and hypertensive cardiovascular disease. Continue patient on amlodipine 5 mg once every day, continue with metoprolol ER 25 mg orally once every day, monitor the patient blood pressure very closely. 6. Hyperlipidemia. Continue patient on pravastatin 40 mg at bedtime, monitor lipid panel, keep LDL 55-70. 7. Chronic kidney disease stage IV. Continue patient on sodium bicarbonate 650 mg orally 3 times every day, follow-up with nephrology. 8. History of enlarged prostate. Continue Flomax 0.4 mg once every day. 9. Diabetes mellitus type 2. Continue Lantus 36 units at bedtime along with NovoLog 25 units before each been 3 times every day, monitor the patient blood glucose level III times every day. 10. Diabetic polyneuropathy. Stable. 11. History of DVT status post IVC filter placement, continue with Eliquis 5 mg orally twice every day. 12. history of gout. Continue patient on allopurinol 100 mg orally once every day. 13. History of meningioma with left-sided weakness. Physical therapy evaluation. 14. Admit to inpatient. Estimate a length of stay 2 midnights. 15 acute renal failure: Continue with IV Lasix Lasix expected to improve if it doesn't patient may need hemodialysis at that time patient has cardiac renal syndrome. Objective - Vital Signs Vital signs: Vital Signs Temp 98.4 F 03/22/21 20:00 Pulse 75 03/23/21 04:00 Resp 18 03/23/21 04:00 BP 156/72 03/23/21 04:00 Pulse Ox 95 03/23/21 04:00 Intake & Output 03/22/21 03/23/21 03/23/21 18:59 06:59 18:59 Intake Total 340 240 Output Total 1400 200 Balance -1060 -200 240 Weight 127.006 kg 111.5 kg Intake: Oral 340 240 Output: Urine 1400 200 Other: Voiding Method Urinal Urinal # Voids 1 - Labs CBC & Chem 7: 03/21/21 15:56 03/21/21 15:56 Labs: Abnormal Lab Results - Last 24 Hours (Table) 03/22/21 03/22/21 03/22/21 Range/Units 11:18 12:03 12:14 POC Glucose (mg/dL) 308 H 277 H (75-99) mg/dL Troponin I 0.038 H* (0.000-0.034) ng/mL 03/22/21 03/22/21 03/22/21 Range/Units 15:22 17:15 20:38 POC Glucose (mg/dL) 164 H 130 H (75-99) mg/dL Troponin I 0.038 H* (0.000-0.034) ng/mL 03/23/21 Range/Units 06:12 POC Glucose (mg/dL) 207 H (75-99) mg/dL Troponin I (0.000-0.034) ng/mL Microbiology - Last 24 Hours (Table) 03/21/21 19:28 Blood Culture - Preliminary Blood No Growth after 24 hours
--- NOTE | 2021-03-23 09:33 | P.PN ---
Subjective Patient is seen in follow-up for chronic kidney disease. Labs from today are pending. Maintain on IV Lasix. Good urine output. Shortness of breath improved. Currently on room air. Vital signs are stable. General: The patient appeared well nourished and normally developed. HEENT: Head exam is unremarkable. Neck is without jugular venous distension. LUNGS: Breath sounds decreased. HEART: Rate and Rhythm are regular. ABDOMEN: Soft, no distention. EXTREMITITES: No edema. Objective - Vital Signs Vital signs: Vital Signs Temp 98.4 F 03/22/21 20:00 Pulse 75 03/23/21 04:00 Resp 18 03/23/21 04:00 BP 156/72 03/23/21 04:00 Pulse Ox 95 03/23/21 04:00 Intake & Output 03/22/21 03/23/21 03/23/21 18:59 06:59 18:59 Intake Total 340 240 Output Total 1400 200 Balance -1060 -200 240 Weight 127.006 kg 111.5 kg Intake: Oral 340 240 Output: Urine 1400 200 Other: Voiding Method Urinal Urinal # Voids 1 - Labs CBC & Chem 7: 03/21/21 15:56 03/21/21 15:56 Labs: Abnormal Lab Results - Last 24 Hours (Table) 03/22/21 03/22/21 03/22/21 Range/Units 11:18 12:03 12:14 POC Glucose (mg/dL) 308 H 277 H (75-99) mg/dL Troponin I 0.038 H* (0.000-0.034) ng/mL 03/22/21 03/22/21 03/22/21 Range/Units 15:22 17:15 20:38 POC Glucose (mg/dL) 164 H 130 H (75-99) mg/dL Troponin I 0.038 H* (0.000-0.034) ng/mL 03/23/21 Range/Units 06:12 POC Glucose (mg/dL) 207 H (75-99) mg/dL Troponin I (0.000-0.034) ng/mL Microbiology - Last 24 Hours (Table) 03/21/21 19:28 Blood Culture - Preliminary Blood No Growth after 24 hours Assessment and Plan Plan: Assessment: 1. Chronic kidney disease stage V secondary to diabetic kidney disease and cardiorenal syndrome. Creatinine 3.97 as of yesterday. 2. Volume overload. 3. Acute on chronic diastolic CHF. 4. Metabolic acidosis secondary to chronic kidney disease. Maintain on oral bicarb. 5. Hypercalcemia secondary to vitamin D and calcitriol. 6. Hypertension with chronic kidney disease. 7. Diabetes mellitus. Plan: Maintain IV Lasix 40 mg twice daily. Stopped vitamin D and calcitriol. Avoid nephrotoxins. Continue to assess daily for need for renal present therapy. Patient quite hesitant to start. No need at this time. Increase dose of hydralazine to 75 mg 3 times daily. Follow-up morning labs
[2021-03-23 10:03] LABS: Basophils % (A) 1 %; Eosinophils # (A) 0.1 k/uL (0-0.7); Eosinophils % (A) 2 %; HCT 28.1 % (39.0-53.0); HGB 9.6 gm/dL (13.0-17.5); Lymphocytes # (A) 0.4 k/uL (1.0-4.8); Lymphocytes % (A) 9 %; MCH 31.3 pg (25.0-35.0); MCV 92.1 fL (80.0-100.0); Mean Platelet Volume 8.1; Monocytes # (A) 0.5 k/uL (0-1.0); Monocytes % (A) 9 %; Neutrophils # (A) 3.9 k/uL (1.3-7.7); Neutrophils % (A) 78 %; Platelet Count 222 k/uL (150-450); RBC 3.05 m/uL (4.30-5.90); RDW 14.5 % (11.5-15.5)
[2021-03-23] MEDS: TAMSULOSIN 0.4 MG CAP.ER.24H PO SCH ×2 (10:09→21:33)
[2021-03-23] MEDS: allopurinoL 100 MG TAB PO SCH (10:09)
[2021-03-23] MEDS: METOPROLOL SUCCINATE (ER) 25 MG TAB.ER.24H PO SCH (10:09)
[2021-03-23] MEDS: APIXABAN 5 MG TAB PO SCH ×2 (10:09→21:33)
[2021-03-23] MEDS: FOLIC ACID 1 MG TAB PO SCH (10:09)
[2021-03-23] MEDS: SODIUM BICARBONATE TAB 650 MG TAB PO SCH ×3 (10:09→21:33)
[2021-03-23] MEDS: FERROUS SULFATE 325 MG TAB PO SCH (10:09)
[2021-03-23] MEDS: amLODIPine 5 MG TAB PO SCH (10:10)
[2021-03-23] MEDS: FUROSEMIDE 10 MG/ML 4 ML VIAL IV SCH ×2 (10:10→21:34)
[2021-03-23] MEDS: AMIODARONE 100 MG TAB PO SCH (10:11)
[2021-03-23] MEDS: hydrALAZINE HCL 25 MG TAB PO SCH ×3 (10:35→21:34)
[2021-03-23 11:02] LABS: Albumin 3.7 g/dL (3.5-5.0); Calcium 10.3 mg/dL (8.4-10.2); Magnesium 2.4 mg/dL (1.6-2.3); Potassium 3.4 mmol/L (3.5-5.1); Total Bilirubin 0.3 mg/dL (0.2-1.3); Total Protein 6.2 g/dL (6.3-8.2)
[2021-03-23 11:17] LABS: Glucose,Whole Blood 238 mg/dL (75-99)
--- NOTE | 2021-03-23 11:29 | P.PN ---
Subjective Progress Note Date: 03/23/21 HISTORY OF PRESENT ILLNESS: This is a 70-year-old male, patient of Dr. Turcios, who is admitted to the hospital with congestive heart failure. The patient remains on IV Lasix. Aretha briggs continues to report mild shortness of breath but states it is significantly improved from yesterday. Echocardiogram completed revealed ejection fraction 50-55%, apical inferior LV wall hypokinesis, apical septal LV wall hypokinesis, mild aortic stenosis, mild mitral regurgitation, and mild tricuspid regurgitation. BUN today 63. Creatinine 4.07. The patient's blood pressure is elevated this morning. His hydralazine has been increased per nephrology. PHYSICAL EXAM: VITAL SIGNS: Reviewed. GENERAL: Well-developed in no acute distress. NECK: Supple. No JVD or thyromegaly LUNGS: Respirations even and unlabored. Lungs diminished bilaterally. HEART: Regular rate and rhythm. S1 and S2 heard. Systolic murmur noted. EXTREMITIES: Normal range of motion. No clubbing or cyanosis. Peripheral pulses intact. Trace bilateral lower extremity edema ASSESSMENT: Acute exacerbation of chronic diastolic heart failure Paroxysmal atrial fibrillation Coronary artery disease with previous CABG History of meningioma of the brain status post surgery Paralysis of left lower extremity Hypertension PLAN: Continue current cardiac medications Continue IV Lasix Monitor kidney function Daily weights Accurate I&O Monitor blood pressure. If patient's blood pressure remains elevated, we will increase his amlodipine tomorrow Further recommendations per patient course Nurse practitioner note has been reviewed by physician. Signing provider agrees with the documented findings, assessment, and plan of care. Objective - Vital Signs Vital signs: Vital Signs Temp 98.4 F 03/22/21 20:00 Pulse 75 03/23/21 04:00 Resp 18 03/23/21 04:00 BP 156/72 03/23/21 04:00 Pulse Ox 95 03/23/21 04:00 Intake & Output 03/22/21 03/23/21 03/23/21 18:59 06:59 18:59 Intake Total 340 240 Output Total 1400 200 Balance -1060 -200 240 Weight 127.006 kg 111.5 kg Intake: Oral 340 240 Output: Urine 1400 200 Other: Voiding Method Urinal Urinal # Voids 1 - Labs CBC & Chem 7: 03/23/21 09:39 03/23/21 09:39 Labs: Abnormal Lab Results - Last 24 Hours (Table) 03/22/21 03/22/21 03/22/21 Range/Units 12:03 12:14 15:22 RBC (4.30-5.90) m/uL Hgb (13.0-17.5) gm/dL Hct (39.0-53.0) % Lymphocytes # (1.0-4.8) k/uL Potassium (3.5-5.1) mmol/L Carbon Dioxide (22-30) mmol/L BUN (9-20) mg/dL Creatinine (0.66-1.25) mg/dL Glucose (74-99) mg/dL POC Glucose (mg/dL) 277 H (75-99) mg/dL Calcium (8.4-10.2) mg/dL Magnesium (1.6-2.3) mg/dL Troponin I 0.038 H* 0.038 H* (0.000-0.034) ng/mL Total Protein (6.3-8.2) g/dL 03/22/21 03/22/21 03/23/21 Range/Units 17:15 20:38 06:12 RBC (4.30-5.90) m/uL Hgb (13.0-17.5) gm/dL Hct (39.0-53.0) % Lymphocytes # (1.0-4.8) k/uL Potassium (3.5-5.1) mmol/L Carbon Dioxide (22-30) mmol/L BUN (9-20) mg/dL Creatinine (0.66-1.25) mg/dL Glucose (74-99) mg/dL POC Glucose (mg/dL) 164 H 130 H 207 H (75-99) mg/dL Calcium (8.4-10.2) mg/dL Magnesium (1.6-2.3) mg/dL Troponin I (0.000-0.034) ng/mL Total Protein (6.3-8.2) g/dL 03/23/21 03/23/21 03/23/21 Range/Units 09:39 09:39 11:16 RBC 3.05 L (4.30-5.90) m/uL Hgb 9.6 L (13.0-17.5) gm/dL Hct 28.1 L (39.0-53.0) % Lymphocytes # 0.4 L (1.0-4.8) k/uL Potassium 3.4 L (3.5-5.1) mmol/L Carbon Dioxide 21 L (22-30) mmol/L BUN 63 H (9-20) mg/dL Creatinine 4.07 H (0.66-1.25) mg/dL Glucose 251 H (74-99) mg/dL POC Glucose (mg/dL) 238 H (75-99) mg/dL Calcium 10.3 H (8.4-10.2) mg/dL Magnesium 2.4 H (1.6-2.3) mg/dL Troponin I (0.000-0.034) ng/mL Total Protein 6.2 L (6.3-8.2) g/dL Microbiology - Last 24 Hours (Table) 03/21/21 19:28 Blood Culture - Preliminary Blood No Growth after 24 hours
[2021-03-23] MEDS ORDERED: POTASSIUM CHLORIDE ER 20 MEQ TAB.ER PO STA (14:40)
[2021-03-23 16:02] LABS: Glucose,Whole Blood 194 mg/dL (75-99)
[2021-03-23 20:02] LABS: Glucose,Whole Blood 154 mg/dL (75-99)
[2021-03-23] MEDS: INSULIN DETEMIR (LEVEMIR) 100 UNIT/ML SYR SQ SCH (21:34)
[2021-03-23] MEDS: PRAVASTATIN SODIUM 40 MG TAB PO SCH (21:34)
[2021-03-23] MEDS: ACETAMINOPHEN TAB 325 MG TAB PO PRN (23:43)
[2021-03-24 06:28] LABS: Glucose,Whole Blood 152 mg/dL (75-99)
--- NOTE | 2021-03-24 07:37 | P.PN ---
Subjective Patient is admitted for the chronic diastolic dysfunction with acute exacerbation patient is also found to have cardiac renal syndrome with elevated creatinine up to 3.5 baseline around 1.8. Patient remains on Lasix had urine output of around 800 mL today. Patient is respiratory status improved feeling better today. 03/24/2021 Patient had urine output of around the 600 mL overnight. Patient remains on the Lasix, serum creatinine is bit worse actually fairly stable went up from 3.97- 4.07 a do not have any today morning labs available Constitutional: Denied any fatigue denied any fever. Cardio vascular: denied any chest pain, palpitations Gastrointestinal denied any nausea vomiting Pulmonary: Denied any shortness of breath cough Neurologic denied any new focal deficits All inpatient medications were reviewed and appropriate changes in these medications as dictated in the interval history and assessment and plan. PHYSICAL EXAMINATION: GENERAL: The patient is alert and oriented x3, not in any acute distress. Well developed, well nourished. HEENT: Pupils are round and equally reacting to light. EOMI. No scleral icterus. No conjunctival pallor. Normocephalic, atraumatic. No pharyngeal erythema. No thyromegaly. CARDIOVASCULAR: S1 and S2 present. No murmurs, rubs, or gallops. PULMONARY: Chest is clear to auscultation, no wheezing or crackles. ABDOMEN: Soft, nontender, nondistended, normoactive bowel sounds. No palpable organomegaly. MUSCULOSKELETAL: No joint swelling or deformity. EXTREMITIES: No cyanosis, clubbing, or pedal edema. NEUROLOGICAL: Gross neurological examination did not reveal any focal deficits. SKIN: No rashes. ASSESSMENT AND PLAN: 1. acute diastolic heart failure with bilateral pleural effusion. Continue patient on metoprolol 25 mg 3 times a day, continue patient on Lasix 40 mg IV push every 12 hours, monitor input and output and daily weight, continue patient also on hydralazine 75 mg orally 3 times a day , echocardiogram normal ejection fraction, cardiology evaluated the patient 2. history of CAD post CABG as well as PCI and stent placement. Continue patient on metoprolol pravastatin 40 mg at bedtime. 3. history of atrial fibrillation. Continue patient on Eliquis 5 mg orally twice every day, THE DOSE TO 2.5 MG TWICE A DAY BECAUSE OF HIS ACUTE RENAL FAILURE continue amiodarone 100 mg orally once every day, metoprolol ER 25 mg orally once every day. 4. Bilateral pleural effusion with bilateral atelectasis , no evidence of pneumonia,secondary to heart failure. 5. Hypertension and hypertensive cardiovascular disease. Continue patient on amlodipine 5 mg once every day, continue with metoprolol ER 25 mg orally once every day, monitor the patient blood pressure very closely. 6. Hyperlipidemia. Continue patient on pravastatin 40 mg at bedtime, monitor lipid panel, keep LDL 55-70. 7. Chronic kidney disease stage IV. Continue patient on sodium bicarbonate 650 mg orally 3 times every day. 8. History of enlarged prostate. Continue Flomax 0.4 mg once every day. 9. Diabetes mellitus type 2. Continue Lantus 36 units at bedtime along with NovoLog 25 units before each been 3 times every day, monitor the patient blood glucose level III times every day. 10. Diabetic polyneuropathy. Stable. 11. History of DVT status post IVC filter placement, continue with Eliquis 5 mg orally twice every day. 12. history of gout. Continue patient on allopurinol 100 mg orally once every day. 13. History of meningioma with left-sided weakness. Physical therapy evaluation.s. 14 acute renal failure: Continue with IV Lasix Lasix expected to improve if it doesn't patient may need hemodialysis at that time patient has cardiac renal syndrome. Objective - Vital Signs Vital signs: Vital Signs Temp 98.1 F 03/23/21 20:00 Pulse 69 03/24/21 04:00 Resp 18 03/24/21 04:00 BP 142/67 03/24/21 04:00 Pulse Ox 93 L 03/24/21 04:00 Intake & Output 03/23/21 03/24/21 03/24/21 18:59 06:59 18:59 Intake Total 480 Output Total 1702 300 Balance -1222 -300 Weight 112 kg Intake: Oral 480 Output: Urine 1702 300 Other: Voiding Method Urinal # Voids 2 - Labs CBC & Chem 7: 03/23/21 09:39 03/23/21 09:39 Labs: Abnormal Lab Results - Last 24 Hours (Table) 03/23/21 03/23/21 03/23/21 Range/Units 09:39 09:39 11:16 RBC 3.05 L (4.30-5.90) m/uL Hgb 9.6 L (13.0-17.5) gm/dL Hct 28.1 L (39.0-53.0) % Lymphocytes # 0.4 L (1.0-4.8) k/uL Potassium 3.4 L (3.5-5.1) mmol/L Carbon Dioxide 21 L (22-30) mmol/L BUN 63 H (9-20) mg/dL Creatinine 4.07 H (0.66-1.25) mg/dL Glucose 251 H (74-99) mg/dL POC Glucose (mg/dL) 238 H (75-99) mg/dL Calcium 10.3 H (8.4-10.2) mg/dL Magnesium 2.4 H (1.6-2.3) mg/dL Total Protein 6.2 L (6.3-8.2) g/dL 03/23/21 03/23/21 03/24/21 Range/Units 15:58 19:57 06:27 RBC (4.30-5.90) m/uL Hgb (13.0-17.5) gm/dL Hct (39.0-53.0) % Lymphocytes # (1.0-4.8) k/uL Potassium (3.5-5.1) mmol/L Carbon Dioxide (22-30) mmol/L BUN (9-20) mg/dL Creatinine (0.66-1.25) mg/dL Glucose (74-99) mg/dL POC Glucose (mg/dL) 194 H 154 H 152 H (75-99) mg/dL Calcium (8.4-10.2) mg/dL Magnesium (1.6-2.3) mg/dL Total Protein (6.3-8.2) g/dL Microbiology - Last 24 Hours (Table) 03/21/21 19:28 Blood Culture - Preliminary Blood No Growth after 48 hours
[2021-03-24] MEDS: TAMSULOSIN 0.4 MG CAP.ER.24H PO SCH ×2 (07:59→21:01)
[2021-03-24] MEDS: amLODIPine 5 MG TAB PO SCH ×2 (07:59→21:01)
[2021-03-24] MEDS: FERROUS SULFATE 325 MG TAB PO SCH (07:59)
[2021-03-24] MEDS: AMIODARONE 100 MG TAB PO SCH (07:59)
[2021-03-24] MEDS: FOLIC ACID 1 MG TAB PO SCH (07:59)
[2021-03-24] MEDS: FUROSEMIDE 10 MG/ML 4 ML VIAL IV SCH (07:59)
[2021-03-24] MEDS: INSULIN ASPART (NovoLOG) 100 UNIT/ML VIAL SQ SCH ×3 (07:59→17:21)
[2021-03-24] MEDS: APIXABAN 2.5 MG TABLET PO SCH ×2 (07:59→21:00)
[2021-03-24] MEDS: METOPROLOL SUCCINATE (ER) 25 MG TAB.ER.24H PO SCH (08:00)
[2021-03-24] MEDS: SODIUM BICARBONATE TAB 650 MG TAB PO SCH ×3 (08:00→21:01)
[2021-03-24] MEDS: allopurinoL 100 MG TAB PO SCH (08:00)
[2021-03-24] MEDS: ACETAMINOPHEN TAB 325 MG TAB PO PRN ×2 (08:00→22:48)
[2021-03-24] MEDS: hydrALAZINE HCL 25 MG TAB PO SCH ×3 (08:00→21:00)
[2021-03-24 08:02] LABS: Calcium 10.3 mg/dL (8.4-10.2); Magnesium 2.4 mg/dL (1.6-2.3); Potassium 4.2 mmol/L (3.5-5.1)
--- NOTE | 2021-03-24 09:44 | P.PN ---
Subjective Patient is seen in follow-up for chronic kidney disease. Renal function is stable. Transition to oral diuretics this morning. Good urine output. Shortness of breath improved. Currently on room air. No active complaints. Vital signs are stable. General: The patient appeared well nourished and normally developed. HEENT: Head exam is unremarkable. Neck is without jugular venous distension. LUNGS: Breath sounds decreased. HEART: Rate and Rhythm are regular. ABDOMEN: Soft, no distention. EXTREMITITES: No edema. Objective - Vital Signs Vital signs: Vital Signs Temp 98 F 03/24/21 07:53 Pulse 77 03/24/21 07:53 Resp 18 03/24/21 07:53 BP 155/71 03/24/21 07:53 Pulse Ox 93 L 03/24/21 07:53 Intake & Output 03/23/21 03/24/21 03/24/21 18:59 06:59 18:59 Intake Total 480 Output Total 1702 300 Balance -1222 -300 Weight 112 kg Intake: Oral 480 Output: Urine 1702 300 Other: Voiding Method Urinal Urinal # Voids 2 - Labs CBC & Chem 7: 03/23/21 09:39 03/24/21 07:12 Labs: Abnormal Lab Results - Last 24 Hours (Table) 03/23/21 03/23/21 03/23/21 Range/Units 09:39 09:39 11:16 RBC 3.05 L (4.30-5.90) m/uL Hgb 9.6 L (13.0-17.5) gm/dL Hct 28.1 L (39.0-53.0) % Lymphocytes # 0.4 L (1.0-4.8) k/uL Potassium 3.4 L (3.5-5.1) mmol/L Carbon Dioxide 21 L (22-30) mmol/L BUN 63 H (9-20) mg/dL Creatinine 4.07 H (0.66-1.25) mg/dL Glucose 251 H (74-99) mg/dL POC Glucose (mg/dL) 238 H (75-99) mg/dL Calcium 10.3 H (8.4-10.2) mg/dL Magnesium 2.4 H (1.6-2.3) mg/dL Total Protein 6.2 L (6.3-8.2) g/dL 03/23/21 03/23/21 03/24/21 Range/Units 15:58 19:57 06:27 RBC (4.30-5.90) m/uL Hgb (13.0-17.5) gm/dL Hct (39.0-53.0) % Lymphocytes # (1.0-4.8) k/uL Potassium (3.5-5.1) mmol/L Carbon Dioxide (22-30) mmol/L BUN (9-20) mg/dL Creatinine (0.66-1.25) mg/dL Glucose (74-99) mg/dL POC Glucose (mg/dL) 194 H 154 H 152 H (75-99) mg/dL Calcium (8.4-10.2) mg/dL Magnesium (1.6-2.3) mg/dL Total Protein (6.3-8.2) g/dL 03/24/21 Range/Units 07:12 RBC (4.30-5.90) m/uL Hgb (13.0-17.5) gm/dL Hct (39.0-53.0) % Lymphocytes # (1.0-4.8) k/uL Potassium (3.5-5.1) mmol/L Carbon Dioxide 21 L (22-30) mmol/L BUN 73 H (9-20) mg/dL Creatinine 4.05 H (0.66-1.25) mg/dL Glucose 150 H (74-99) mg/dL POC Glucose (mg/dL) (75-99) mg/dL Calcium 10.3 H (8.4-10.2) mg/dL Magnesium 2.4 H (1.6-2.3) mg/dL Total Protein (6.3-8.2) g/dL Microbiology - Last 24 Hours (Table) 03/21/21 19:28 Blood Culture - Preliminary Blood No Growth after 48 hours Assessment and Plan Plan: Assessment: 1. Chronic kidney disease stage V secondary to diabetic kidney disease and cardiorenal syndrome. Creatinine stable at 4.05 today. 2. Volume overload. Improved with diuresis. 3. Acute on chronic diastolic CHF. 4. Metabolic acidosis secondary to chronic kidney disease. Maintained on oral bicarb. 5. Hypercalcemia secondary to vitamin D and calcitriol. 6. Hypertension with chronic kidney disease. 7. Diabetes mellitus. Plan: Maintain oral Lasix. Stopped vitamin D and calcitriol. Avoid nephrotoxins. Continue to assess daily for need for renal present therapy. Patient quite hesitant to start. No need at this time. Repeat BMP and magnesium level to 3 days postdischarge. Follow up outpatient in 1 week.
--- NOTE | 2021-03-24 10:06 | P.PN ---
Subjective Progress Note Date: 03/24/21 HISTORY OF PRESENT ILLNESS: This is a 70-year-old male, patient of Dr. Turcios, who is admitted to the hospital with congestive heart failure. The patient remains on IV Lasix. Aretha briggs continues to report mild shortness of breath but states it is significantly improved from yesterday. Echocardiogram completed revealed ejection fraction 50-55%, apical inferior LV wall hypokinesis, apical septal LV wall hypokinesis, mild aortic stenosis, mild mitral regurgitation, and mild tricuspid regurgitation. BUN today 63. Creatinine 4.07. The patient's blood pressure is elevated this morning. His hydralazine has been increased per nephrology. 03/24/2021 Patient examined this morning at the bedside. Patient denies chest pain or pressure. Patient states his shortness of breath has completely resolved. He remains on IV Lasix. Patient is asking to be discharged home today. BUN 73. Creatinine 4.05. PHYSICAL EXAM: VITAL SIGNS: Reviewed. GENERAL: Well-developed in no acute distress. NECK: Supple. No JVD or thyromegaly LUNGS: Respirations even and unlabored. Lungs diminished bilaterally. HEART: Regular rate and rhythm. S1 and S2 heard. Systolic murmur noted. EXTREMITIES: Normal range of motion. No clubbing or cyanosis. Peripheral pulses intact. Trace bilateral lower extremity edema ASSESSMENT: Acute exacerbation of chronic diastolic heart failure Paroxysmal atrial fibrillation Coronary artery disease with previous CABG History of meningioma of the brain status post surgery Paralysis of left lower extremity Hypertension PLAN: Continue current cardiac medications Discontinue IV Lasix Begin oral Lasix 40 mg twice a day Increase amlodipine to 5 mg twice a day for optimal blood pressure control Monitor kidney function Daily weights Accurate I&O Further recommendations pending patient course Nurse practitioner note has been reviewed by physician. Signing provider agrees with the documented findings, assessment, and plan of care. Objective - Vital Signs Vital signs: Vital Signs Temp 98 F 03/24/21 07:53 Pulse 77 03/24/21 07:53 Resp 18 03/24/21 07:53 BP 155/71 03/24/21 07:53 Pulse Ox 93 L 03/24/21 07:53 Intake & Output 03/23/21 03/24/21 03/24/21 18:59 06:59 18:59 Intake Total 480 Output Total 1702 300 Balance -1222 -300 Weight 112 kg Intake: Oral 480 Output: Urine 1702 300 Other: Voiding Method Urinal Urinal # Voids 2 - Labs CBC & Chem 7: 03/23/21 09:39 03/24/21 07:12 Labs: Abnormal Lab Results - Last 24 Hours (Table) 03/23/21 03/23/21 03/23/21 Range/Units 09:39 09:39 11:16 RBC 3.05 L (4.30-5.90) m/uL Hgb 9.6 L (13.0-17.5) gm/dL Hct 28.1 L (39.0-53.0) % Lymphocytes # 0.4 L (1.0-4.8) k/uL Potassium 3.4 L (3.5-5.1) mmol/L Carbon Dioxide 21 L (22-30) mmol/L BUN 63 H (9-20) mg/dL Creatinine 4.07 H (0.66-1.25) mg/dL Glucose 251 H (74-99) mg/dL POC Glucose (mg/dL) 238 H (75-99) mg/dL Calcium 10.3 H (8.4-10.2) mg/dL Magnesium 2.4 H (1.6-2.3) mg/dL Total Protein 6.2 L (6.3-8.2) g/dL 03/23/21 03/23/21 03/24/21 Range/Units 15:58 19:57 06:27 RBC (4.30-5.90) m/uL Hgb (13.0-17.5) gm/dL Hct (39.0-53.0) % Lymphocytes # (1.0-4.8) k/uL Potassium (3.5-5.1) mmol/L Carbon Dioxide (22-30) mmol/L BUN (9-20) mg/dL Creatinine (0.66-1.25) mg/dL Glucose (74-99) mg/dL POC Glucose (mg/dL) 194 H 154 H 152 H (75-99) mg/dL Calcium (8.4-10.2) mg/dL Magnesium (1.6-2.3) mg/dL Total Protein (6.3-8.2) g/dL 03/24/21 Range/Units 07:12 RBC (4.30-5.90) m/uL Hgb (13.0-17.5) gm/dL Hct (39.0-53.0) % Lymphocytes # (1.0-4.8) k/uL Potassium (3.5-5.1) mmol/L Carbon Dioxide 21 L (22-30) mmol/L BUN 73 H (9-20) mg/dL Creatinine 4.05 H (0.66-1.25) mg/dL Glucose 150 H (74-99) mg/dL POC Glucose (mg/dL) (75-99) mg/dL Calcium 10.3 H (8.4-10.2) mg/dL Magnesium 2.4 H (1.6-2.3) mg/dL Total Protein (6.3-8.2) g/dL Microbiology - Last 24 Hours (Table) 03/21/21 19:28 Blood Culture - Preliminary Blood No Growth after 48 hours
[2021-03-24 12:20] LABS: Glucose,Whole Blood 163 mg/dL (75-99)
[2021-03-24] MEDS: FUROSEMIDE 40 MG TAB PO SCH (15:24)
[2021-03-24 16:58] LABS: Glucose,Whole Blood 116 mg/dL (75-99)
[2021-03-24 20:29] LABS: Glucose,Whole Blood 104 mg/dL (75-99)
[2021-03-24] MEDS: PRAVASTATIN SODIUM 40 MG TAB PO SCH (21:00)
[2021-03-24] MEDS: INSULIN DETEMIR (LEVEMIR) 100 UNIT/ML SYR SQ SCH (21:01)
[2021-03-25 06:11] LABS: Glucose,Whole Blood 153 mg/dL (75-99)
[2021-03-25 06:21] LABS: Calcium 10.1 mg/dL (8.4-10.2); Potassium 4.2 mmol/L (3.5-5.1)
[2021-03-25] MEDS: METOPROLOL SUCCINATE (ER) 25 MG TAB.ER.24H PO SCH (08:00)
[2021-03-25] MEDS: SODIUM BICARBONATE TAB 650 MG TAB PO SCH ×3 (08:00→20:55)
[2021-03-25] MEDS: allopurinoL 100 MG TAB PO SCH (08:00)
[2021-03-25] MEDS: FOLIC ACID 1 MG TAB PO SCH (08:00)
[2021-03-25] MEDS: FUROSEMIDE 40 MG TAB PO SCH ×2 (08:00→16:10)
[2021-03-25] MEDS: hydrALAZINE HCL 25 MG TAB PO SCH ×3 (08:00→20:55)
[2021-03-25] MEDS: AMIODARONE 100 MG TAB PO SCH (08:00)
[2021-03-25] MEDS: APIXABAN 2.5 MG TABLET PO SCH ×2 (08:00→20:53)
[2021-03-25] MEDS: TAMSULOSIN 0.4 MG CAP.ER.24H PO SCH ×2 (08:01→20:53)
[2021-03-25] MEDS: amLODIPine 5 MG TAB PO SCH ×2 (08:01→20:53)
[2021-03-25] MEDS: FERROUS SULFATE 325 MG TAB PO SCH (08:01)
[2021-03-25] MEDS: ACETAMINOPHEN TAB 325 MG TAB PO PRN ×3 (08:01→23:58)
[2021-03-25] MEDS: INSULIN ASPART (NovoLOG) 100 UNIT/ML VIAL SQ SCH ×3 (08:02→17:35)
[2021-03-25 11:46] LABS: Glucose,Whole Blood 188 mg/dL (75-99)
--- NOTE | 2021-03-25 11:46 | P.PN ---
Subjective Progress Note Date: 03/25/21 HISTORY OF PRESENT ILLNESS: This is a 70-year-old male, patient of Dr. Turcios, who is admitted to the hospital with congestive heart failure. The patient remains on IV Lasix. Aretha briggs continues to report mild shortness of breath but states it is significantly improved from yesterday. Echocardiogram completed revealed ejection fraction 50-55%, apical inferior LV wall hypokinesis, apical septal LV wall hypokinesis, mild aortic stenosis, mild mitral regurgitation, and mild tricuspid regurgitation. BUN today 63. Creatinine 4.07. The patient's blood pressure is elevated this morning. His hydralazine has been increased per nephrology. 03/24/2021 Patient examined this morning at the bedside. Patient denies chest pain or pressure. Patient states his shortness of breath has completely resolved. He remains on IV Lasix. Patient is asking to be discharged home today. BUN 73. Creatinine 4.05. 03/25/2021 Patient examined this morning at the bedside. Spouse present. Patient denies chest pain or pressure. Denies shortness of breath. He remains on oral lasix. Creatinine increased from 4.05 to 4.42 today. PHYSICAL EXAM: VITAL SIGNS: Reviewed. GENERAL: Well-developed in no acute distress. NECK: Supple. No JVD or thyromegaly LUNGS: Respirations even and unlabored. Lungs diminished bilaterally. HEART: Regular rate and rhythm. S1 and S2 heard. Systolic murmur noted. EXTREMITIES: Normal range of motion. No clubbing or cyanosis. Peripheral pu lses intact. Trace bilateral lower extremity edema ASSESSMENT: Acute exacerbation of chronic diastolic heart failure Acute on chronic kidney disease Paroxysmal atrial fibrillation Coronary artery disease with previous CABG History of meningioma of the brain status post surgery Paralysis of left lower extremity Hypertension PLAN: Continue current cardiac medications Continue oral lasix Monitor kidney function Daily weights Accurate I&O Further recommendations pending patient course Nurse practitioner note has been reviewed by physician. Signing provider agrees with the documented findings, assessment, and plan of care. Objective - Vital Signs Vital signs: Vital Signs Temp 98.2 F 03/25/21 07:50 Pulse 82 03/25/21 08:00 Resp 16 03/25/21 08:00 BP 148/67 03/25/21 07:50 Pulse Ox 95 03/25/21 07:50 Intake & Output 03/24/21 03/25/2121 18:59 06:59 18:59 Intake Total 790 240 Output Total 1 700 200 Balance 789 -700 40 Weight 110.5 kg Intake: Oral 790 240 Output: Urine 1 700 200 Other: Voiding Method Urinal Urinal Urinal # Voids 2 - Labs CBC & Chem 7: 03/23/21 09:39 03/25/21 05:33 Labs: Abnormal Lab Results - Last 24 Hours (Table) 03/24/21 03/24/21 03/24/21 Range/Units 12:09 16:55 20:06 Chloride (98-107) mmol/L BUN (9-20) mg/dL Creatinine (0.66-1.25) mg/dL Glucose (74-99) mg/dL POC Glucose (mg/dL) 163 H 116 H 104 H (75-99) mg/dL 03/25/21 03/25/21 Range/Units 05:33 06:09 Chloride 108 H (98-107) mmol/L BUN 79 H (9-20) mg/dL Creatinine 4.42 H (0.66-1.25) mg/dL Glucose 139 H (74-99) mg/dL POC Glucose (mg/dL) 153 H (75-99) mg/dL Microbiology - Last 24 Hours (Table) 03/21/21 19:28 Blood Culture - Preliminary Blood No Growth after 72 hours
--- NOTE | 2021-03-25 14:10 | P.DS ---
Providers Date of admission: 03/21/21 17:59 Expected date of discharge: 03/25/21 Attending physician: Pablo Jon Consults: 03/21/21 18:12 Consult Physician Urgent Consulting Provider: Yin Campos Consult Reason/Comments: Kidney failure Do you want consulting provider notified?: Yes 03/22/21 08:12 Consult Physician Routine Consulting Provider: Kadeem Ernst Consult Reason/Comments: congestive heart failure Do you want consulting provider notified?: Yes Primary care physician: Pablo Jon Hospital Course: HISTORY OF PRESENT ILLNESS: This is a 70-year-old male with a previous medical history significant for hypertension and hypertensive cardiovascular disease with left ventricular hypertrophy, hyperlipidemia, diabetes mellitus type 2, with diabetic polyneuropathy, history of coronary artery disease status post coronary artery bypass graft x3 followed by per continue his current intervention and stent this point, history of atrial for relation status post ablation, history of meningioma status post resection back in April 2013 with left-sided weakness, history of chronic kidney disease stage IV currently under the care of nephrology, history of anemia of chronic kidney disease, history of secondary hyperparathyroidism, patient was in his usual state of health about 2 days ago when he developed to have an increased shortness breath associated with increa sed swelling in both upper and lower extremities, patient was struggling quite a bit with breathing he ended up coming to the emergency department at [facility] yesterday, he had a chest x-ray that didn't show pulmonary venous congestion as well as bilateral pleural effusion suggestive of congestive heart failure, patient also had possible infiltrate suggestive of atelectasis versus pneumonia few he was started on IV Lasix 40 mg IV push every 12 hours as well as IV antibiotic and he was admitted to the hospital for evaluation by nephrology as well as cardiology, patient will be admitted to a telemetry unit. 03/25: Patient has been seen and followed by cardiology with recommendations to continue current medications. Patient is on oral Lasix 40 mg twice daily. Patient has been seen and followed by Dr. Escobedo with recommendations to maintain oral Lasix, stop vitamin D and calcitriol, avoid nephrotoxins. No plan at this point for renal replacement therapy. Repeat BMP and magnesium in 3 days. Blood work today reveals sodium 142, potassium 4.2, chloride 108, CO2 22, BUN 79 creatinine 4.42. Blood sugars are running between 104 and 188. Calcium 10.1. Patient will be discharged home today in stable condition. ASSESSMENT AND PLAN: 1. Acute diastolic heart failure with bilateral pleural effusion. 2. history of CAD post CABG as well as PCI and stent placement. 3. history of atrial fibrillation. 4. Bilateral pleural effusion with bilateral atelectasis doubt pneumonia . 5. Hypertension and hypertensive cardiovascular disease. 6. Hyperlipidemia. 7. Chronic kidney disease stage IV. 8. History of enlarged prostate. 9. Diabetes mellitus type 2. 10. Diabetic polyneuropathy. 11. History of DVT status post IVC filter placement 12. Chronic gout. 13. History of meningioma with left-sided weakness. DISCHARGE PLAN Home Impression and plan of care have been directed as dictated by the signing physician. Nita Linn nurse practitioner acting as scribe for signing physician. Patient Condition at Discharge: Good Plan - Discharge Summary Discharge Rx Participant: No New Discharge Prescriptions: New Metoprolol Succinate (ER) [Toprol XL] 25 mg PO DAILY #30 tab.er.24h Continue Amiodarone [Cordarone] 100 mg PO DAILY Tamsulosin HCl [Flomax] 0.4 mg PO BID amLODIPine [Norvasc] 5 mg PO DAILY Furosemide [Lasix] 40 mg PO BID@0900,1600 #60 tab hydrALAZINE HCL [Apresoline] 75 mg PO BID Ferrous Sulfate [Iron (65 MG Elemental)] 325 mg PO DAILY Apixaban [Eliquis] 5 mg PO BID Pravastatin Sodium [Pravachol] 40 mg PO HS INSULIN ASPART (NovoLOG) [NovoLOG (formulary)] 25 - 30 unit SQ AC-TID Allopurinol [Zyloprim] 100 mg PO DAILY Folic Acid 0.8 mg PO DAILY Insulin Glargine [Lantus] 36 unit SQ HS Discontinued calcitrioL [Calcitriol] 0.25 mcg PO SALAZAR Metoprolol Succinate [Toprol XL] 12.5 mg PO DAILY Cholecalciferol [Vitamin D3 (25 Mcg = 1000 Iu)] 25 mcg PO DAILY Discharge Medication List Amiodarone [Cordarone] 100 mg PO DAILY 10/02/14 [History] Tamsulosin HCl [Flomax] 0.4 mg PO BID 06/19/15 [History] amLODIPine [Norvasc] 5 mg PO DAILY 07/09/16 [History] Furosemide [Lasix] 40 mg PO BID@0900,1600 #60 tab 07/14/16 [Rx] Allopurinol [Zyloprim] 100 mg PO DAILY 03/21/21 [History] Apixaban [Eliquis] 5 mg PO BID 03/21/21 [History] Ferrous Sulfate [Iron (65 MG Elemental)] 325 mg PO DAILY 03/21/21 [History] Folic Acid 0.8 mg PO DAILY 03/21/21 [History] INSULIN ASPART (NovoLOG) [NovoLOG (formulary)] 25 - 30 unit SQ AC-TID 03/21/21 [History] Insulin Glargine [Lantus] 36 unit SQ HS 03/21/21 [History] Pravastatin Sodium [Pravachol] 40 mg PO HS 03/21/21 [History] hydrALAZINE HCL [Apresoline] 75 mg PO BID 03/21/21 [History] Metoprolol Succinate (ER) [Toprol XL] 25 mg PO DAILY #30 tab.er.24h 03/25/21 [Rx] Follow up Appointment(s)/Referral(s): Pablo Jon MD [Primary Care Provider] - 1 Week Everette Turcios MD [STAFF PHYSICIAN] - 2 Weeks Tavon Escobedo DO [STAFF PHYSICIAN] - 2 Weeks Ambulatory/Diagnostic Orders: Basic Metabolic Panel [LAB.AMB] Location: None Selected Magnesium [LAB.AMB] Location: None Selected Activity/Diet/Wound Care/Special Instructions: Pt requires 2l per NC at home Discharge Disposition: HOME SELF-CARE
--- NOTE | 2021-03-25 14:28 | P.PN ---
Subjective Progress Note Date: 03/25/21 HISTORY OF PRESENT ILLNESS: this is a 70-year-old male with a previous medical history significant for hy pertension and hypertensive cardiovascular disease with left ventricular hypertrophy, hyperlipidemia, diabetes mellitus type 2, with diabetic polyneuropathy, history of coronary artery disease status post coronary artery bypass graft x3 followed by per continue his current intervention and stent this point, history of atrial for relation status post ablation, history of meningioma status post resection back in April 2013 with left-sided weakness, history of chronic kidney disease stage IV currently under the care of nephrology, history of anemia of chronic kidney disease, history of secondary hyperparathyroidism, patient was in his usual state of health about 2 days ago when he developed to have an increased shortness breath associated with increased swelling in both upper and lower extremities, patient was struggling quite a bit with breathing he ended up coming to the emergency department at [facility] yesterday, he had a chest x-ray that didn't show pulmonary venous congestion as well as bilateral pleural effusion suggestive of congestive heart failure, patient also had possible infiltrate suggestive of atelectasis versus pneumonia few he was started on IV Lasix 40 mg IV push every 12 hours as well as IV antibiotic and he was admitted to the hospital for evaluation by nephrology as well as cardiology, patient will be admitted to a telemetry unit. 03/25: Echocardiogram reveals EF of 50-55%, mild concentric left ventricular hypertrophy, mild aortic stenosis, mild mitral regurgitation, mild tricuspid regurgitation. Patient has been seen and followed by cardiology with recommendations to continue current medications. Patient is on oral Lasix 40 mg twice daily. Patient has been seen and followed by Dr. Escobedo with recommendations to maintain oral Lasix, stop vitamin D and calcitriol, avoid nephrotoxins. No plan at this point for renal replacement therapy. Repeat BMP and magnesium in 3 days. Blood work today reveals sodium 142, potassium 4.2, chloride 108, CO2 22, BUN 79 creatinine 4.42. Blood sugars are running between 104 and 188. Calcium 10.1. Nephrology is planning to keep the patient overnight as renal function has worsened. REVIEW OF SYSTEMS: Constitutional: No documented fever, no chills, no night sweats. No weight change. positive for weakness, fatigue or lethargy. No daytime sleepiness. HEENT: No headache. No blurred vision or double vision, no loss of vision. No loss of Hearing, no ringing in the ears, no dizziness. No nasal drainage or congestion. No epistaxis. No sore throat. Lungs: positive for shortness of breath, no cough, no sputum production. No wheezing. Reports dyspnea with activity. Cardiovascular: No chest pain, no lower extremity edema. No palpitations. No paroxysmal nocturnal dyspnea. No orthopnea. No lightheadedness or dizziness. No syncopal episodes. Abdominal: Reports no abdominal pain. No nausea, vomiting. No diarrhea. No constipation. No bloody or tarry stools reports loss of appetite. Genitourinary: No dysuria, increased frequency, urgency. No urinary retention. Musculoskeletal: No myalgias. positive for left sided weakness, positive for gait dysfunction, no frequent falls. positive for back pain. positive for neck pain. Integumentary: No wounds, no lesions. No rash or pruritus. No unusual bruising. No change in hair or nails. Neurologic: No aphasia. No facial droop. No change in mentation. No head injury. No headache, positive for left sided weakness and left foot drop. Psychiatric: positive for depression. No anxiety. No mood swings. Endocrine: No abnormal blood sugars. No weight change. General: this is a 70-year-old male who is sitting up in bed appears to be in minimal respiratory distress. HEENT: Head is atraumatic, normocephalic, pupils were equal round reactive to light and recommendation, extraocular muscle movement were intact, sclera nonic teric, conjunctivae were pale, mucous membranes of the mouth are somewhat dry. Neck: Supple, no JVP, normal carotid upstroke bilaterally, no lymphadenopathy. Chest: Decreased breath sounds at the bases, few rhonchi, no expiratory wheezes, no chest wall tenderness, no intercostal retractions. Heart: First heart sound is normal, second heart sounds normal, irregularly irregular, there is systolic initial murmur 2/6 located in the left sternal border. Abdomen: Soft, nontender, nondistended, positive bowel sounds. Extremities: There is +2 edema no calf tenderness DP +2 bilaterally. Neurologic examination: Patient is awake alert and oriented X3 , cranial nerves II-12 appear grossly intact, there is left-sided weakness with left foot drop. ASSESSMENT AND PLAN: 1. acute diastolic heart failure with bilateral pleural effusion. Continue patient on metoprolol 25 mg orally once every day, continue patient on Lasix 40 mg oral twice daily every 12 hours, monitor input and output and daily weight, continue patient also on hydralazine 75 mg orally twice every day, cardiology consultation appreciated. 2. history of CAD post CABG as well as PCI and stent placement. Continue patient on metoprolol ER 25 mg once every day, pravastatin 40 mg at bedtime. 3. history of atrial fibrillation. Continue patient on Eliquis 5 mg orally twice every day, continue amiodarone 100 mg orally once every day, metoprolol ER 25 mg orally once every day. 4. Bilateral pleural effusion with bilateral atelectasis doubt pneumonia patient did receive a dose of Levaquin 500 mg IV piggyback 1, we will monitor t he patient very closely. 5. Hypertension and hypertensive cardiovascular disease. Continue patient on amlodipine 5 mg once every day, continue with metoprolol ER 25 mg orally once every day, monitor the patient blood pressure very closely. 6. Hyperlipidemia. Continue patient on pravastatin 40 mg at bedtime, monitor lipid panel, keep LDL 55-70. 7. Chronic kidney disease stage IV. Continue patient on sodium bicarbonate 650 mg orally 3 times every day, follow-up with nephrology. 8. History of enlarged prostate. Continue Flomax 0.4 mg once every day. 9. Diabetes mellitus type 2. Continue Lantus 36 units at bedtime along with NovoLog 25 units before each been 3 times every day, monitor the patient blood glucose level III times every day. 10. Diabetic polyneuropathy. Stable. 11. History of DVT status post IVC filter placement, continue with Eliquis 5 mg orally twice every day. 12. history of gout. Continue patient on allopurinol 100 mg orally once every day. 13. History of meningioma with left-sided weakness. Physical therapy evaluation. 14. Patient is a full code. Discharge plan: Home Impression and plan of care have been directed as dictated by the signing physician. Nita Linn nurse practitioner acting as scribe for signing physician. Objective - Vital Signs Vital signs: Vital Signs Temp 98.2 F 03/25/21 07:50 Pulse 73 03/25/21 13:12 Resp 16 03/25/21 13:12 BP 143/66 03/25/21 12:00 Pulse Ox 94 L 03/25/21 12:00 Intake & Output 03/24/21 03/25/21 03/25/21 18:59 06:59 18:59 Intake Total 790 960 Output Total 1 700 450 Balance 789 -700 510 Weight 110.5 kg Intake: Oral 790 960 Output: Urine 1 700 450 Other: Voiding Method Urinal Urinal Urinal # Voids 2 - Labs CBC & Chem 7: 03/23/21 09:39 03/25/21 05:33 Labs: Abnormal Lab Results - Last 24 Hours (Table) 03/24/21 03/24/21 03/25/21 Range/Units 16:55 20:06 05:33 Chloride 108 H (98-107) mmol/L BUN 79 H (9-20) mg/dL Creatinine 4.42 H (0.66-1.25) mg/dL Glucose 139 H (74-99) mg/dL POC Glucose (mg/dL) 116 H 104 H (75-99) mg/dL 03/25/21 03/25/21 Range/Units 06:09 11:44 Chloride (98-107) mmol/L BUN (9-20) mg/dL Creatinine (0.66-1.25) mg/dL Glucose (74-99) mg/dL POC Glucose (mg/dL) 153 H 188 H (75-99) mg/dL Microbiology - Last 24 Hours (Table) 03/21/21 19:28 Blood Culture - Preliminary Blood No Growth after 72 hours
[2021-03-25 17:23] LABS: Glucose,Whole Blood 205 mg/dL (75-99)
--- NOTE | 2021-03-25 17:45 | PN ---
PROGRESS NOTE Patient is seen for followup for acute kidney injury on top of chronic kidney disease. The patient's serum creatinine has been at about 4 mg/dL for the last couple of days. However, today it is up to 4.42. Patient's diuretics were recently decreased. Overall, he states that he is feeling better. His respiratory status has improved. Patient denies any nausea or vomiting. PHYSICAL EXAMINATION: On examination today, blood pressure was 148/67, heart rate 82 per minute, he is afebrile. Examination of the heart S1, S2. Examination of the lungs, bilateral breath sounds are heard. Decreased breath sounds at the bases. Abdomen is soft, nontender. Examination of lower extremities shows trace edema is noted. 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 LAB: Show sodium 142, potassium 4.2, chloride 108, CO2 is 22, BUN 79, creatinine 4.42. ASSESSMENT: 1. Acute kidney injury on top of chronic kidney disease, mostly cardiorenal with worsening of creatinine today associated with recent diuresis. Agree with decreasing diuretics. I will hold off on the discharge today and patient is advised that if his renal function continues to worsen, he will need to start renal replacement therapy. 2. Chronic kidney disease stage 5 secondary to diabetic kidney disease and cardiorenal syndrome. 3. Acute on chronic diastolic congestive heart failure. 4. Metabolic acidosis associated with renal failure. 5. Hypercalcemia associated with calcitriol use. 6. Hypertension with chronic kidney disease. 7. Type 2 diabetes. PLAN: No need to start dialysis today, however, patient is advised that he may need to start renal replacement therapy soon if his renal function does not improve much. He will need close followup as well. I will hold off on discharge for today and re-evaluate renal function again tomorrow. Continue with the decreased dose of oral Lasix. Continue with the sodium bicarb as well for now. MMODL / IJN: [id number] /
[2021-03-25 20:10] LABS: Glucose,Whole Blood 257 mg/dL (75-99)
[2021-03-25] MEDS: PRAVASTATIN SODIUM 40 MG TAB PO SCH (20:52)
[2021-03-25] MEDS: INSULIN DETEMIR (LEVEMIR) 100 UNIT/ML SYR SQ SCH (20:54)
[2021-03-26 06:04] LABS: Glucose,Whole Blood 187 mg/dL (75-99)
[2021-03-26 07:53] VITALS: BP 157/76; RESP 16; TEMP 98.1
[2021-03-26] MEDS: allopurinoL 100 MG TAB PO SCH (07:54)
[2021-03-26] MEDS: AMIODARONE 100 MG TAB PO SCH (07:54)
[2021-03-26] MEDS: SODIUM BICARBONATE TAB 650 MG TAB PO SCH (07:54)
[2021-03-26] MEDS: hydrALAZINE HCL 25 MG TAB PO SCH (07:54)
[2021-03-26] MEDS: TAMSULOSIN 0.4 MG CAP.ER.24H PO SCH (07:54)
[2021-03-26] MEDS: INSULIN ASPART (NovoLOG) 100 UNIT/ML VIAL SQ SCH (07:54)
[2021-03-26] MEDS: FOLIC ACID 1 MG TAB PO SCH (07:54)
[2021-03-26] MEDS: METOPROLOL SUCCINATE (ER) 25 MG TAB.ER.24H PO SCH (07:54)
[2021-03-26] MEDS: FERROUS SULFATE 325 MG TAB PO SCH (07:55)
[2021-03-26] MEDS: APIXABAN 2.5 MG TABLET PO SCH (07:55)
[2021-03-26] MEDS: FUROSEMIDE 40 MG TAB PO SCH (07:55)
[2021-03-26] MEDS: amLODIPine 5 MG TAB PO SCH (07:55)
[2021-03-26 08:02] VITALS: PULSE 75
[2021-03-26 08:05] LABS: Calcium 10.3 mg/dL (8.4-10.2); Potassium 4.1 mmol/L (3.5-5.1)
--- NOTE | 2021-03-26 10:22 | P.PN ---
Subjective Progress Note Date: 03/26/21 HISTORY OF PRESENT ILLNESS: This is a 70-year-old male, patient of Dr. Turcios, who is admitted to the hospital with congestive heart failure. The patient remains on IV Lasix. Aretha briggs continues to report mild shortness of breath but states it is significantly improved from yesterday. Echocardiogram completed revealed ejection fraction 50-55%, apical inferior LV wall hypokinesis, apical septal LV wall hypokinesis, mild aortic stenosis, mild mitral regurgitation, and mild tricuspid regurgitation. BUN today 63. Creatinine 4.07. The patient's blood pressure is elevated this morning. His hydralazine has been increased per nephrology. 03/24/2021 Patient examined this morning at the bedside. Patient denies chest pain or pressure. Patient states his shortness of breath has completely resolved. He remains on IV Lasix. Patient is asking to be discharged home today. BUN 73. Creatinine 4.05. 03/25/2021 Patient examined this morning at the bedside. Spouse present. Patient denies chest pain or pressure. Denies shortness of breath. He remains on oral lasix. Creatinine increased from 4.05 to 4.42 today. 03/26/2021 Patient examined this morning at the bedside. Patient denies chest pain or pressure. He remains on oral lasix. Creatinine 4.36 today. PHYSICAL EXAM: VITAL SIGNS: Reviewed. GENERAL: Well-developed in no acute distress. NECK: Supple. No JVD or thyromegaly LUNGS: Respirations even and unlabored. Lungs diminished bilaterally. HEART: Regular rate and rhythm. S1 and S2 heard. Systolic murmur noted. EXTREMITIES: Normal range of motion. No clubbing or cyanosis. Peripheral pulses intact. No lower extremity edema ASSESSMENT: Acute exacerbation of chronic diastolic heart failure Acute on chronic kidney disease Paroxysmal atrial fibrillation Coronary artery disease with previous CABG History of meningioma of the brain status post surgery Paralysis of left lower extremity Hypertension PLAN: Continue current cardiac medications Patient may be discharged home today from a cardiac standpoint We will sign off. Please reconsult if needed Nurse practitioner note has been reviewed by physician. Signing provider agrees with the documented findings, assessment, and plan of care. Objective - Vital Signs Vital signs: Vital Signs Temp 98.1 F 03/26/21 07:51 Pulse 75 03/26/21 08:00 Resp 16 03/26/21 08:00 BP 157/76 03/26/21 07:51 Pulse Ox 96 03/26/21 07:51 Intake & Output 03/25/21 03/26/21 03/26/21 18:59 06:59 18:59 Intake Total 1080 10 480 Output Total 450 1350 Balance 630 -1340 480 Weight 110.5 kg Intake: IV 10 Invasive Line 1 10 Oral 1080 480 Output: Urine 450 1350 Other: Voiding Method Urinal Urinal Urinal - Labs CBC & Chem 7: 03/23/21 09:39 03/26/21 07:20 Labs: Abnormal Lab Results - Last 24 Hours (Table) 03/25/21 03/25/21 03/25/21 Range/Units 05:33 11:44 17:22 Chloride (98-107) mmol/L BUN (9-20) mg/dL Creatinine (0.66-1.25) mg/dL Glucose (74-99) mg/dL POC Glucose (mg/dL) 188 H 205 H (75-99) mg/dL Calcium (8.4-10.2) mg/dL Magnesium 2.6 H (1.6-2.3) mg/dL 03/25/21 03/26/21 03/26/21 Range/Units 20:09 06:02 07:20 Chloride 108 H (98-107) mmol/L BUN 77 H (9-20) mg/dL Creatinine 4.36 H (0.66-1.25) mg/dL Glucose 188 H (74-99) mg/dL POC Glucose (mg/dL) 257 H 187 H (75-99) mg/dL Calcium 10.3 H (8.4-10.2) mg/dL Magnesium (1.6-2.3) mg/dL Microbiology - Last 24 Hours (Table) 03/21/21 19:28 Blood Culture - Preliminary Blood No Growth after 96 hours
== END 2021-03-26 11:17 | disposition home or self-care (01) | DRG 291 ==
LOC: EC 15:24 → 3SCARD 17:59
PROVIDERS: ADMIT Internal Medicine; ATTEND Internal Medicine
DX: I13.2 Hypertensive heart and chronic kidney disease with heart failure and with stage 5 chronic kidney disease, or end stage renal disease (principal); J18.9 Pneumonia, unspecified organism; I50.33 Acute on chronic diastolic (congestive) heart failure; N17.9 Acute kidney failure, unspecified; E87.2 Acidosis; N18.5 Chronic kidney disease, stage 5; J98.11 Atelectasis; N25.81 Secondary hyperparathyroidism of renal origin; I48.92 Unspecified atrial flutter; I48.0 Paroxysmal atrial fibrillation; I11.0 Hypertensive heart disease with heart failure; E78.5 Hyperlipidemia, unspecified; E11.9 Type 2 diabetes mellitus without complications; D63.1 Anemia in chronic kidney disease; E11.22 Type 2 diabetes mellitus with diabetic chronic kidney disease; E11.42 Type 2 diabetes mellitus with diabetic polyneuropathy; E83.52 Hypercalcemia; I08.3 Combined rheumatic disorders of mitral, aortic and tricuspid valves; F17.210 Nicotine dependence, cigarettes, uncomplicated; I25.10 Atherosclerotic heart disease of native coronary artery without angina pectoris; Z79.01 Long term (current) use of anticoagulants; G83.14 Monoplegia of lower limb affecting left nondominant side; I25.2 Old myocardial infarction; M1A.9XX0 Chronic gout, unspecified, without tophus (tophi); N40.0 Benign prostatic hyperplasia without lower urinary tract symptoms; Z79.4 Long term (current) use of insulin; Z79.899 Other long term (current) drug therapy; Z86.011 Personal history of benign neoplasm of the brain; Z86.718 Personal history of other venous thrombosis and embolism; Z87.19 Personal history of other diseases of the digestive system; Z95.1 Presence of aortocoronary bypass graft; Z95.5 Presence of coronary angioplasty implant and graft; Z95.828 Presence of other vascular implants and grafts; Z96.1 Presence of intraocular lens; Z99.2 Dependence on renal dialysis; Z99.3 Dependence on wheelchair; Z88.0 Allergy status to penicillin; Z91.048 Other nonmedicinal substance allergy status
CPT/HCPCS: 36415; 71046; 80048; 80053; 82550; 83605; 83735; 83880; 84484; 85025; 85610; 85730; 87040; 93005; 93306; 99291

== ENCOUNTER → 2022-01-10 | Outpatient (CLI) | payer MEDICARE ==
--- NOTE | 2022-01-14 08:37 | MM ---
Reason for exam: clinical finding. Baseline mammogram. Physical Findings: A clinical breast exam by your physician is recommended on an annual basis and results should be correlated with mammographic findings. MG 3D Diag Mammo W/Cad ROHIT Bilateral CC and MLO view(s) were taken. There are scattered fibroglandular densities. Finding: There is a 28 mm microlobulated oval mass in the right breast, correlates with palpable abnormality. Results were given to the patient verbally at the time of the exam. ASSESSMENT: Incomplete: need additional imaging evaluation, BI-RAD 0 RECOMMENDATION: Ultrasound of the right breast.
--- NOTE | 2022-01-14 08:41 | USB ---
Reason for exam: additional evaluation requested from abnormal screening. Physical Findings: A clinical breast exam by your physician is recommended on an annual basis and results should be correlated with mammographic findings. US Breast RT Technologist: Linsey Ortez Right complete breast ultrasound includes all four quadrants, the retroareolar region and axilla. Finding demonstrates a 2.5 x 2.7 x 1.8cm oval, microlobulated, solid, hypoechoic, vascular lesion at the nipple, suspicioius, corresponding to palpable and mammographic abnormality and a lymph node at the axilla, cortex 4.5mm, suspicious lymph node. Results were given to the patient verbally at the time of the exam. ASSESSMENT: Suspicious, BI-RAD 4 RECOMMENDATION: Ultrasound core biopsy of the right breast. (mass and lymph node) Called office with mammographic findings and has scheduled an appointment for the patient for 02/26/22 at 4:[address] Vieira. Biopsy scheduled for 01/23/22 at 12:30. PRELIMINARY REPORT CALLED AND FAXED TO DR. VIEIRA ON 01/14/22.
== END | disposition home or self-care (01) ==
LOC: RADMAMWWP 12:58
PROVIDERS: ATTEND Surgery
DX: N63.10 Unspecified lump in the right breast, unspecified quadrant (principal)
CPT/HCPCS: 77066; 76641; G0279; 77062

== ENCOUNTER → 2022-01-23 | Day surgery (SDC) | payer MEDICARE ==
--- NOTE | 2022-01-23 20:20 | USB ---
EXAMINATION TYPE: US biopsy breast VAD RT, US biopsy breast add'l VAD RT DATE OF EXAM: 01/23/2022 CLINICAL HISTORY: 71-year-old male presenting with right breast mass and pain, R92.8 ABN MAMMO. TECHNIQUE: Ultrasound guided core biopsy of the right breast and axilla. COMPARISON: 01/10/2022 FINDINGS: The procedure of ultrasound guided core biopsy was explained to the patient. Benefits, alternatives, and risks were discussed. An informed consent was then obtained. The patient was placed in supine positioning for imaging and for the procedure. The overlying skin was prepped and draped in usual sterile fashion. Lidocaine was used as anesthetic into the skin followed by lidocaine/epinephrine into the subcutaneous tissue up to area of concern in the right breast and axilla. Site 1: BI-RADS 5 subareolar mass: Under ultrasound guidance, a 13-gauge vacuum- assisted mammotome Elite biopsy gun was used to obtain 4 core samples. Following this, a wing clip was left in lesion. Site 2: Indeterminate nonenlarged but thickened axillary lymph node: Under ultrasound guidance, a 13-gauge vacuum-assisted mammotome Elite biopsy gun was used to obtain 7 core samples. Following this, a Hydromark clip was left in lesion. The patient tolerated the procedure well without any immediate complication. The patient was kept in the radiology department for short stay after the procedure and then discharged home in stable condition. IMPRESSION: Successful, uncomplicated ultrasound guided core biopsy of the BI-RADS 5 subareolar right breast mass and indeterminate, nonenlarged but thickened right axillary lymph node. The patient deferred post biopsy mammogram at this time but understands that it may be needed later for subsequent management. Full pathology results to follow. Pathology Results: Malignant A. RIGHT BREAST, POSTERIOR NIPPLE, ULTRASOUND GUIDED CORE BIOPSY: Invasive moderately differentiated ductal carcinoma (Grade 2). See Surgical Pathology Cancer Case Summary and Comment. B. RIGHT AXILLA, ULTRASOUND GUIDED CORE BIOPSY: Invasive moderately differentiated ductal carcinoma (Grade 2) with focal associated lymphoid tissue consistent with andra metastasis. See Surgical Pathology Cancer Case Summary and Comment. Recommendation Surgical consult of the right breast. ESTRELLA
== END ==
LOC: RADUSWWP 13:08
PROVIDERS: ATTEND Surgery
DX: C50.921 Malignant neoplasm of unspecified site of right male breast (principal); C77.3 Secondary and unspecified malignant neoplasm of axilla and upper limb lymph nodes; Z17.0 Estrogen receptor positive status [ER+]
CPT/HCPCS: 88305; 88342; 88341; 19083; 19084; A4648

== ENCOUNTER 2022-02-12 14:17 | Emergency (ER) | payer MEDICARE ==
[2022-02-12 14:33] VITALS: BP 121/63; PULSE 64; RESP 18; TEMP 98
--- NOTE | 2022-02-12 14:44 | ED ---
General Adult HPI - General Chief complaint: Upper Respiratory Infection Stated complaint: Weak Time Seen by Provider: 02/12/22 14:27 Source: patient, family, RN notes reviewed Mode of arrival: wheelchair Limitations: no limitations - History of Present Illness Initial comments: Patient is a pleasant 71-year-old male presenting to the emergency department with cough and chest congestion. Onset was 2-3 days ago. Patient's tested positive for COVID-19 infection yesterday. Patient does have fatigue. No fever. No nausea vomiting. No loss of taste or smell. Patient was recently tested positive for breast cancer. - Related Data Home Medications Medication Instructions Recorded Confirmed Tamsulosin HCl [Flomax] 0.4 mg PO BID 06/19/15 02/07/22 amLODIPine [Norvasc] 5 mg PO QAM 07/09/16 02/07/22 Allopurinol [Zyloprim] 100 mg PO QAM 03/21/21 02/07/22 Apixaban [Eliquis] 5 mg PO HS 03/21/21 02/07/22 Ferrous Sulfate [Iron (65 MG 325 mg PO DAILY 03/21/21 02/07/22 Elemental)] INSULIN ASPART (NovoLOG) [NovoLOG 0 unit SQ AC-BID 03/21/21 02/07/22 (formulary)] Insulin Glargine [Lantus Vial] 36 unit SQ HS 03/21/21 02/07/22 Pravastatin Sodium [Pravachol] 40 mg PO HS 03/21/21 02/07/22 hydrALAZINE HCL [Apresoline] 50 mg PO BID 03/21/21 02/07/22 Cholecalciferol [Vitamin D3 (25 25 mcg PO SALAZAR 01/13/22 02/07/22 Mcg = 1000 Iu)] Amiodarone [Cordarone] 200 mg PO QAM 02/07/22 Folic Acid 0.8 mg PO DAILY 02/07/22 Furosemide [Lasix] 80 mg PO QAM 02/07/22 Metoprolol Succinate (ER) [Toprol 25 mg PO QAM 02/07/22 XL] Allergies Allergy/AdvReac Type Severity Reaction Status Date / Time Penicillins Allergy Unknown Rash/Hives Verified 02/07/22 09:24 adhesive AdvReac Unknown Verified 02/07/22 09:24 Review of Systems ROS Statement: Those systems with pertinent positive or pertinent negative responses have been documented in the HPI. ROS Other: All systems not noted in ROS Statement are negative. Constitutional: Denies: fever, chills Eyes: Denies: eye pain ENT: Reports: congestion. Denies: ear pain Respiratory: Reports: cough Cardiovascular: Denies: chest pain Endocrine: Reports: fatigue Gastrointestinal: Denies: abdominal pain Genitourinary: Denies: dysuria Musculoskeletal: Denies: back pain Skin: Denies: rash Neurological: Denies: weakness Past Medical History Past Medical History: Atrial Fibrillation, Atrial Flutter, Coronary Artery Disease (CAD), Cancer, Diabetes Mellitus, Deep Vein Thrombosis (DVT), Eye Disorder, GERD/Reflux, Hyperlipidemia, Hypertension, Myocardial Infarction ([place]), Neurologic Disorder, Osteoarthritis (OA), Prostate Disorder, Sleep Apnea/CPAP/BIPAP Additional Past Medical History / Comment(s): Current right breast cancer. HX OF POLYPS, BLOOD IN STOOL, uti's. Hx tailbone fracture, neuropathy to feet. Blind in right eye. Hx encephalopathy, meningioma with left sided weakness, cannot use left leg, wheelcahir bound. PT CAN'T HAVE ANY VACCINES THAT ARE LIVE VIRUSES. PLEASE USE PAPER TAPE ONLY(PT HAS THIN SKIN). uses slide board at home to transfer pt to w/c, with 2 person assist pt can stand/pivot to chair. Last Myocardial Infarction Date:: 02-11-2005 History of Any Multi-Drug Resistant Organisms: None Reported Past Surgical History: Adenoidectomy, Cardiac Ablation, Cholecystectomy, Coronary Bypass/CABG, Heart Catheterization With Stent, Orthopedic Surgery, Tonsillectomy Additional Past Surgical History / Comment(s): Triple bypass, Meningioma Removed from Brain 04/2013, peg tube, DESTINEY FILTER, BILATERAL CATARACTS- LENS IMPLANTS, COLONOSCOPY/POLYPECTOMY, RIGHT KNEE ARTHROSCOPY. Past Anesthesia/Blood Transfusion Reactions: No Reported Reaction Date of Last Stent Placement:: 2004 Past Psychological History: Depression Smoking Status: Never smoker Past Alcohol Use History: None Reported Past Drug Use History: None Reported - Past Family History Father History Unknown: Yes Family Medical History: Congestive Heart Failure (CHF) Mother History Unknown: Yes Additional Family Medical History / Comment(s): STILL ALIVE AT AGE 90 IN [facility] General Exam Limitations: no limitations General appearance: alert, in no apparent distress Head exam: Present: normocephalic Eye exam: Present: normal appearance Neck exam: Present: normal inspection Respiratory exam: Present: normal lung sounds bilaterally Cardiovascular Exam: Present: regular rate, normal rhythm GI/Abdominal exam: Present: soft. Absent: tenderness Extremities exam: Present: normal inspection Neurological exam: Present: alert Psychiatric exam: Present: normal affect, normal mood Skin exam: Present: normal color Course Vital Signs 02/12/22 14:28 Temperature 98.0 F Pulse Rate 64 Respiratory 18 Rate Blood Pressure 121/63 O2 Sat by Pulse 97 Oximetry - Reevaluation(s) Reevaluation #1: 02/12/22 14:42 Patient felt not to be candidate for Paxlovid secondary to GFR a stuffed recent creatinine at 13.6. 02/12/22 14:43 Patient offered blood work and x-ray but does not feel is necessary and refuses Medical Decision Making - Medical Decision Making Patient reevaluated and updated. Prescription for molnupiravir - Lab Data Lab Results 02/12/22 Range/Units 14:17 Coronavirus (PCR) Detected A (Not Detectd) Disposition Clinical Impression: COVID-19 Disposition: HOME SELF-CARE Condition: Stable Instructions (If sedation given, give patient instructions): COVID-19 (Coronavirus Disease 2019) (ED) Additional Instructions: Get prescription filled and started today. Please do follow-up to in the next day or 2 for recheck. [id number] Tylenol if needed. Vitamin C, vitamin D, and zincshould be taken until symptoms are resolved. Is patient prescribed a controlled substance at d/c from ED?: No Referrals: Pablo Jon MD [Primary Care Provider] - 1-2 days Time of Disposition: 15:13
== END 2022-02-12 15:28 | disposition home or self-care (01) ==
LOC: EC 14:17
DX: U07.1 COVID-19 (principal); E11.9 Type 2 diabetes mellitus without complications; I10 Essential (primary) hypertension; E78.5 Hyperlipidemia, unspecified; I25.2 Old myocardial infarction; Z88.0 Allergy status to penicillin; Z91.048 Other nonmedicinal substance allergy status
CPT/HCPCS: 87635

== ENCOUNTER → 2022-02-21 | Outpatient (CLI) | payer MEDICARE ==
--- NOTE | 2022-02-26 05:44 | PE ---
EXAMINATION TYPE: PET CT fusion skull to thigh DATE OF EXAM: 02/24/2022 COMPARISON: CT abdomen and pelvis July 25, 2019 HISTORY: Malignant neoplasm of the central portion of right breast on biopsy January 23, 2022 with axilla ry lymph node involvement confirmed on biopsy. TECHNIQUE: Following the intravenous administration of 11.90 mCi of F-18 FDG, whole body images are performed from the skull base to the midthigh. Images are reviewed on the computer in the coronal, a xial, and sagittal planes. Reconstructed rotating images are created on independent workstation and reviewed on the computer. A localization and attenuation correction CT is performed in conjunction with the PET scan. Blood glucose level equals 185. SCAN: Initial Scan FINDINGS: Exam noted suboptimal secondary to patient's large body habitus. SKULL BASE AND NECK: No areas of abnormal hypermetabolic uptake. CHEST, MEDIASTINUM, AND HILAR REGION: Corresponding to recent mammogram and ultrasound there is subar eolar right breast mass axial image 112 measuring 2.8 x 2.2 cm with hypermetabolic uptake, max SUV is 4.28. There is biopsy clip posteriorly on axial image 111. Abnormal right axillary lymph node with biopsy clip is not well identified in this study. No abnormal hypermetabolic uptake or suspicious adenopathy clearly seen in the right axilla on this exam. There is small right pleural fluid collection. There are areas of masslike consolidation in the right lung base with some heterogeneity and foci of calcification posteriorly. Mild hypermetabolic uptake axial image 93, max SUV is 3.45. Pleural effusion has been present since 2019 CT. Suspect chronic eff usion with scarring and round atelectasis. No additional areas of abnormal hypermetabolic uptake. ABDOMEN AND PELVIS: No areas of abnormal hypermetabolic uptake. No adrenal masses. Normal excretion. OSSEOUS STRUCTURES: No areas of abnormal hypermetabolic uptake. OTHER CT: Post-CABG changes with sternal wires and mediastinal clips are present. Moderate to severe calcified plaque bilateral carotid bulb level. Left-sided flame-shaped gynecomastia. Cardiomegaly. Cholecystectomy clips redemonstrated. There is an infrarenal IVC filter again seen. Enlarged prostate consistent with BPH. Small vessel arterial calcification consistent with long-standing renal failure . Facet arthropathy in the lower lumbar spine. IMPRESSION: Primary right breast neoplasm redemonstrated. Right axillary involvement not well seen on PET/CT. Nonspecific right lung findings. No convincing evidence of metastatic disease on this exam.
== END | disposition home or self-care (01) ==
LOC: RADPETMAIN 13:17
PROVIDERS: ATTEND Internal Medicine Hematology & Oncology
DX: C50.121 Malignant neoplasm of central portion of right male breast (principal)
CPT/HCPCS: 78815; A9552

== ENCOUNTER 2022-03-03 06:12 | Day surgery (SDC) | payer MEDICARE ==
[2022-02-27 09:18] VITALS: BMI 32.8
--- NOTE | 2022-02-28 13:06 | P.GSHP ---
History of Present Illness H&P Date: 03/03/22 Chief Complaint: Right breast cancer 71-year-old male presenting for elective Port-A-Cath placement. Patient recently diagnosed with metastatic right breast cancer. Patient is being followed by oncology. Neoadjuvant chemotherapy was advised. Patient is having port placed for access. Past Medical History Past Medical History: Atrial Fibrillation, Atrial Flutter, Coronary Artery Disease (CAD), Cancer, Diabetes Mellitus, Deep Vein Thrombosis (DVT), Eye Disorder, GERD/Reflux, Hyperlipidemia, Hypertension, Myocardial Infarction ([place]), Neurologic Disorder, Prostate Disorder, Sleep Apnea/CPAP/BIPAP Additional Past Medical History / Comment(s): Current right breast cancer. HX OF POLYPS, BLOOD IN STOOL, uti's. Hx tailbone fracture, neuropathy to feet. Blind in right eye. Hx encephalopathy, meningioma with left sided weakness, cannot use left leg, wheelcahir bound. PT CAN'T HAVE ANY VACCINES THAT ARE LIVE VIRUSES. PLEASE USE PAPER TAPE ONLY(PT HAS THIN SKIN). uses slide board at home to transfer pt to w/c, with 2 person assist pt can stand/pivot to chair. USES C PAP MACHINE, INSULIN DEPENDENT -TYPE 2 DIABETIC CHRONIC KIDNEY DISEASE- STAGE 5 KISNEY FUNCTIONS AT 13% PER PATIENT. Last Myocardial Infarction Date:: 02-11-2005 History of Any Multi-Drug Resistant Organisms: None Reported Past Surgical History: Adenoidectomy, Cardiac Ablation, Cholecystectomy, Coronary Bypass/CABG, Heart Catheterization With Stent, Orthopedic Surgery, Tonsillectomy Additional Past Surgical History / Comment(s): Triple bypass, Meningioma Removed from Brain 04/2013, peg tube AND THAN REMOVED, DESTINEY FILTER, BILATERAL CATARACTS- LENS IMPLANTS, COLONOSCOPY/POLYPECTOMY, RIGHT KNEE ARTHROSCOPY. Past Anesthesia/Blood Transfusion Reactions: No Reported Reaction Date of Last Stent Placement:: 2004 Smoking Status: Never smoker - Past Family History Father History Unknown: Yes Family Medical History: Congestive Heart Failure (CHF) Mother History Unknown: Yes Additional Family Medical History / Comment(s): STILL ALIVE AT AGE 90 IN [facility] Medications and Allergies Home Medications Medication Instructions Recorded Confirmed Type Tamsulosin HCl [Flomax] 0.4 mg PO BID 06/19/15 02/27/22 History amLODIPine [Norvasc] 5 mg PO QAM 07/09/16 02/27/22 History Apixaban [Eliquis] 5 mg PO HS 03/21/21 02/27/22 History Ferrous Sulfate [Iron (65 MG 325 mg PO DAILY 03/21/21 02/27/22 History Elemental)] INSULIN ASPART (NovoLOG) [NovoLOG 25 unit SQ AC-BID 03/21/21 02/27/22 History (formulary)] Insulin Glargine [Lantus Vial] 36 unit SQ HS 03/21/21 02/27/22 History Pravastatin Sodium [Pravachol] 40 mg PO HS 03/21/21 02/27/22 History allopurinoL [Zyloprim] 100 mg PO QAM 03/21/21 02/27/22 History hydrALAZINE HCL [Apresoline] 50 mg PO BID 03/21/21 02/27/22 History Cholecalciferol [Vitamin D3 (25 25 mcg PO SALAZAR 01/13/22 02/27/22 History Mcg = 1000 Iu)] Amiodarone [Cordarone] 100 mg PO QAM 02/07/22 02/27/22 History Folic Acid 0.8 mg PO DAILY 02/07/22 02/27/22 History Furosemide [Lasix] 80 mg PO QAM 02/07/22 02/27/22 History Metoprolol Succinate (ER) [Toprol 25 mg PO QAM 02/07/22 02/27/22 History XL] Allergies Allergy/AdvReac Type Severity Reaction Status Date / Time Penicillins Allergy Unknown Rash/Hives Verified 02/27/22 08:12 adhesive AdvReac Unknown Verified 02/27/22 09:06 Surgical - Exam Physical exam: General: Well-developed, well-nourished HEENT: Normocephalic, sclerae nonicteric Abdomen: Nontender, nondistended Extremities: No edema Neuro: Alert and oriented Assessment and Plan (1) Cancer of right male breast Narrative/Plan: 71-year-old male with right breast cancer with regional andra involvement. We'll proceed with Port-A-Cath placement at this time. Risks of bleeding, infection, DVT, pneumothorax, catheter malfunction, anesthesia related complications were discussed. The patient understands and wishes to proceed. Status: Acute Code(s): C50.921 - MALIGNANT NEOPLASM OF UNSPECIFIED SITE OF RIGHT MALE BREAST SNOMED Code(s): 067586064
[~2022-03-03 06:12] MED LIST: ACETAMINOPHEN TAB 500 MG TAB PO PRN; HEPARIN SODIUM,PORCINE/PF 5,000 UNIT/0.5 ML SYRINGE SQ PRN; Pre Op ABX Message 1 EACH MISC MISCELLANE ONE
[2022-03-03] MEDS ORDERED: ONDANSETRON 4 MG/2 ML VIAL IVP ONE (06:25)
[2022-03-03] MEDS ORDERED: MIDAZOLAM 2 MG/2 ML VIAL IV PRN (06:25)
[2022-03-03] MEDS ORDERED: LACTATED RINGERS 1,000 ML IV SCH (06:25)
[2022-03-03] MEDS ORDERED: DEXAMETHASONE SOD PHOSPHATE 4 MG/ML 1 ML VIAL IV ONE (06:25)
[2022-03-03] MEDS ORDERED: LIDOCAINE 1% (10MG/ML) FOR IV START INTRADERMA PRN (06:25)
[2022-03-03] MEDS ORDERED: HYDROmorphone 0.5 MG/0.5 ML SYRINGE IVP PRN (06:25)
[2022-03-03 07:05] VITALS: TEMP 97.7
[2022-03-03 07:21] LABS: Glucose,Whole Blood 162 mg/dL (70-110)
[2022-03-03] MEDS: LACTATED RINGERS 1,000 ML IV SCH ×2 (07:22→07:42)
[2022-03-03] MEDS ORDERED: KETAMINE 10 MG/ML 20 ML VIAL ONE (07:42)
[2022-03-03] MEDS ORDERED: fentaNYL (PF) 50 MCG/ML 2 ML AMP ONE (07:42)
[2022-03-03] MEDS ORDERED: PROPOFOL 10 MG/ML 20 ML VIAL IV ONE (07:42)
[2022-03-03] MEDS ORDERED: MIDAZOLAM 2 MG/2 ML VIAL ONE (07:42)
[2022-03-03] MEDS ORDERED: GLYCOPYRROLATE 0.2 MG/ML 2 ML VIAL ONE (07:42)
[2022-03-03] MEDS ORDERED: LIDOCAINE 2% INJ 20 MG/ML (2 ML VIAL) ONE (07:42)
[2022-03-03] MEDS ORDERED: LIDOCAINE 2% (PF) 20 MG/ML 2 ML AMP SQ ONE (08:03)
[2022-03-03] MEDS ORDERED: SODIUM CHLORIDE 0.9% 100 ML with ceFAZolin 2,000 MG IV ONE ×2 (08:03)
[2022-03-03] MEDS ORDERED: HEPARIN SODIUM,PORCINE 100 UNIT/ML 5 ML VIAL IV ONE (08:11)
[2022-03-03] MEDS ORDERED: traMADol 50 MG TAB PO PRN (08:35)
[2022-03-03] MEDS ORDERED: NALOXONE 0.4 MG/ML 1 ML VIAL IV PRN (08:35)
--- NOTE | 2022-03-03 08:38 | P.OP ---
Date of Procedure: 03/03/22 Procedure(s) Performed: PREOPERATIVE DIAGNOSIS: Breast cancer POSTOPERATIVE DIAGNOSIS: Same PROCEDURE: Port-A-Cath placement with fluoroscopic and ultrasound guidance SURGEON: Keisha EBL: Minimal ANESTHESIA: Sedation COMPLICATIONS: None OPERATIVE PROCEDURE: Patient was brought and placed on the operative table in the supine position. The patient was sedated per anesthesia that time. The chest and neck were prepped and draped in usual sterile fashion. The ultrasound probe was used to identify the location of the right internal jugular vein. The skin was localized with lidocaine. The Seldinger needle was advanced into the IJ under ultrasound guidance. The wire was advanced through the needle under fluoroscopic guidance into the superior vena cava. A port pocket was created in the right infraclavicular location. The catheter was tunneled from the wire entrance site to the port pocket. The port was then connected to the catheter. The dilator introducer was threaded over the guidewire. The guidewire and dilator were then removed. The catheter was advanced through the introducer and introducer was then removed. The tip was seen to be in the right atrial junction via fluoroscopy. A picture of the radiograph showing the tip at the radial digital junction was taken. Port was flushed with both saline and a Hep- Lock solution. There was good flow both in and out of the port. The port was sutured in underlying tissues using 3-0 silk sutures. The subcutaneous tissues were reapproximated using 3-0 Vicryl sutures and the skin at both locations using 4-0 Monocryl sutures. Skin glue and sterile dressings then applied. DISPOSITION: Stable to recovery room
[2022-03-03 08:52] VITALS: BP 172/74; PULSE 69; RESP 16
--- NOTE | 2022-03-03 10:02 | XR ---
EXAMINATION TYPE: XR chest 1V confirm line [facility] DATE OF EXAM: 03/03/2022 COMPARISON: Chest x-ray 03/21/2021 HISTORY: Status post Port-A-Cath placement TECHNIQUE: Single frontal view of the chest is obtained. FINDINGS: There is been interval placement of a port in the right pectoral region, catheter courses via the internal jugular approach, distal tip is overlying the region of the cavoatrial junction. The re is no evident pneumothorax or other significant interval change. IMPRESSION: No evident complication status post central venous catheter placement.
--- NOTE | 2022-03-03 13:27 | FL ---
Fluoroscopy HISTORY: Port-A-Cath insertion 7 seconds fluoroscopy time supplied to the referring clinician. 1 intraoperative C-arm images docume nt the procedure. See dictated report from general surgery.
== END 2022-03-03 10:09 | disposition home or self-care (01) ==
LOC: OR 06:12
PROVIDERS: ATTEND Surgery
DX: C50.921 Malignant neoplasm of unspecified site of right male breast (principal); N19 Unspecified kidney failure; Z79.01 Long term (current) use of anticoagulants; Z79.4 Long term (current) use of insulin; Z79.899 Other long term (current) drug therapy; I12.0 Hypertensive chronic kidney disease with stage 5 chronic kidney disease or end stage renal disease; E11.22 Type 2 diabetes mellitus with diabetic chronic kidney disease; N18.5 Chronic kidney disease, stage 5; E11.40 Type 2 diabetes mellitus with diabetic neuropathy, unspecified; Z90.49 Acquired absence of other specified parts of digestive tract; Z95.5 Presence of coronary angioplasty implant and graft; Z95.1 Presence of aortocoronary bypass graft; Z98.890 Other specified postprocedural states; I48.91 Unspecified atrial fibrillation; I48.92 Unspecified atrial flutter; I25.10 Atherosclerotic heart disease of native coronary artery without angina pectoris; Z86.718 Personal history of other venous thrombosis and embolism; H54.61 Unqualified visual loss, right eye, normal vision left eye; K21.9 Gastro-esophageal reflux disease without esophagitis; E78.5 Hyperlipidemia, unspecified; I25.2 Old myocardial infarction; N42.9 Disorder of prostate, unspecified; G47.30 Sleep apnea, unspecified; Z87.440 Personal history of urinary (tract) infections; Z87.81 Personal history of (healed) traumatic fracture; Z99.3 Dependence on wheelchair; Z95.828 Presence of other vascular implants and grafts; Z98.42 Cataract extraction status, left eye; Z98.41 Cataract extraction status, right eye; Z96.1 Presence of intraocular lens; Z82.49 Family history of ischemic heart disease and other diseases of the circulatory system; Z88.0 Allergy status to penicillin; Z91.09 Other allergy status, other than to drugs and biological substances
CPT/HCPCS: 36561; 76937; 77001; C1788; J2250; J1642; J2405; J0690; J3010; J2704; J2001 ×2; J1644

== ENCOUNTER 2022-06-02 16:32 | Inpatient (IN) | payer MEDICARE ==
--- NOTE | 2022-06-02 19:35 | ED ---
HUEY HPI - General Chief Complaint: Shortness of Breath Stated Complaint: Dr HUEY sent Time Seen by Provider: 06/02/22 19:14 Source: patient Mode of arrival: ambulatory Limitations: no limitations - History of Present Illness Initial Comments: Patient is complaining of shortness of breath. He is retaining fluid. He has a history of heart failure. He has no chest pain or pressure tightness. He has no nausea. He is not vomiting. He has had no sick contacts. He does get chemotherapy for breast cancer. He has no back pain. He has no fevers or chi lls. He has no focal weakness or deficits. - Related Data Home Medications Medication Instructions Recorded Confirmed Tamsulosin HCl [Flomax] 0.4 mg PO BID 06/19/15 05/28/22 amLODIPine [Norvasc] 5 mg PO QAM 07/09/16 05/28/22 Apixaban [Eliquis] 5 mg PO HS 03/21/21 05/28/22 Ferrous Sulfate [Iron (65 MG 325 mg PO DAILY 03/21/21 05/28/22 Elemental)] INSULIN ASPART (NovoLOG) [NovoLOG 25 unit SQ AC-BID 03/21/21 05/28/22 (formulary)] Insulin Glargine [Lantus Vial] 36 unit SQ HS 03/21/21 05/28/22 Pravastatin Sodium [Pravachol] 40 mg PO HS 03/21/21 05/28/22 allopurinoL [Zyloprim] 100 mg PO QAM 03/21/21 05/28/22 hydrALAZINE HCL [Apresoline] 50 mg PO BID 03/21/21 05/28/22 Cholecalciferol [Vitamin D3 (25 25 mcg PO SALAZAR 01/13/22 05/28/22 Mcg = 1000 Iu)] Amiodarone [Cordarone] 100 mg PO QAM 02/07/22 05/28/22 Folic Acid 0.8 mg PO DAILY 02/07/22 05/28/22 Furosemide [Lasix] 80 mg PO QAM 02/07/22 05/28/22 Metoprolol Succinate (ER) [Toprol 25 mg PO QAM 02/07/22 05/28/22 XL] Allergies Allergy/AdvReac Type Severity Reaction Status Date / Time Penicillins Allergy Unknown Rash/Hives Verified 06/02/22 16:42 adhesive AdvReac Unknown Verified 06/02/22 16:42 Review of Systems ROS Statement: Those systems with pertinent positive or pertinent negative responses have been documented in the HPI. ROS Other: All systems not noted in ROS Statement are negative. Past Medical History Past Medical History: Atrial Fibrillation, Atrial Flutter, Coronary Artery Disease (CAD), Cancer, Diabetes Mellitus, Deep Vein Thrombosis (DVT), Eye Disorder, GERD/Reflux, Hyperlipidemia, Hypertension, Myocardial Infarction ([place]), Neurologic Disorder, Osteoarthritis ([place]), Prostate Disorder, Sleep Apnea/CP AP/BIPAP Additional Past Medical History / Comment(s): Current right breast cancer. HX OF POLYPS, BLOOD IN STOOL, uti's. Hx tailbone fracture, neuropathy to feet. Blind in right eye. Hx encephalopathy, meningioma with left sided weakness, cannot use left leg, wheelcahir bound. PT CAN'T HAVE ANY VACCINES THAT ARE LIVE VIRUSES. PLEASE USE PAPER TAPE ONLY(PT HAS THIN SKIN). uses slide board at home to transfer pt to w/c, with 2 person assist pt can stand/pivot to chair. Last Myocardial Infarction Date:: 02-11-2005 History of Any Multi-Drug Resistant Organisms: None Reported Past Surgical History: Adenoidectomy, Cardiac Ablation, Cholecystectomy, Coronary Bypass/CABG, Heart Catheterization With Stent, Orthopedic Surgery, Tonsillectomy Additional Past Surgical History / Comment(s): Triple bypass, Meningioma Removed from Brain 04/2013, peg tube, DESTINEY FILTER, BILATERAL CATARACTS- LENS IMPLANTS, COLONOSCOPY/POLYPECTOMY, RIGHT KNEE ARTHROSCOPY. Past Anesthesia/Blood Transfusion Reactions: No Reported Reaction Date of Last Stent Placement:: 2004 Past Psychological History: Depression Smoking Status: Never smoker Past Alcohol Use History: None Reported Past Drug Use History: None Reported - Past Family History Father History Unknown: Yes Family Medical History: Congestive Heart Failure (CHF) Mother History Unknown: Yes Additional Family Medical History / Comment(s): STILL ALIVE AT AGE 90 IN [facility] General Exam Limitations: no limitations General appearance: alert, in no apparent distress Head exam: Present: atraumatic, normocephalic, normal inspection Eye exam: Present: normal appearance, PERRL, EOMI. Absent: scleral icterus, conjunctival injection, periorbital swelling ENT exam: Present: normal exam, mucous membranes moist Neck exam: Present: normal inspection. Absent: tenderness, meningismus, lymphadenopathy Respiratory exam: Present: normal lung sounds bilaterally. Absent: respiratory distress, wheezes, rales, rhonchi, stridor Cardiovascular Exam: Present: regular rate, normal rhythm, normal heart sounds. Absent: systolic murmur, diastolic murmur, rubs, gallop, clicks GI/Abdominal exam: Present: soft, normal bowel sounds. Absent: distended, tenderness, guarding, rebound, rigid Extremities exam: Present: normal inspection, full ROM, normal capillary refill. Absent: tenderness, pedal edema, joint swelling, calf tenderness Back exam: Present: normal inspection Neurological exam: Present: alert, oriented X3, CN II-XII intact Psychiatric exam: Present: normal affect, normal mood Skin exam: Present: warm, dry, intact, normal color. Absent: rash Course Vital Signs 06/02/22 06/02/22 06/02/22 16:40 19:34 21:00 Temperature 97.7 F Pulse Rate 80 81 79 Respiratory 22 20 18 Rate Blood Pressure 114/62 132/62 140/75 O2 Sat by Pulse 97 96 96 Oximetry Medical Decision Making - Medical Decision Making Patient presents with shortness of breath. He has evidence of heart failure. I ordered him IV Lasix. He is very short of breath. He will be admitted to the hospital. - Lab Data Result diagrams: 06/02/22 19:33 06/02/22 19:33 Lab Results 06/02/22 06/02/22 06/02/22 Range/Units 19:33 19:33 19:33 WBC 3.3 L (3.8-10.6) k/uL RBC 2.13 L (4.30-5.90) m/uL Hgb 7.0 L (13.0-17.5) gm/dL Hct 21.6 L (39.0-53.0) % MCV 101.4 H (80.0-100.0) fL MCH 33.1 (25.0-35.0) pg MCHC 32.7 (31.0-37.0) g/dL RDW 19.3 H (11.5-15.5) % Plt Count 310 (150-450) k/uL MPV 7.2 Neutrophils % 81 % Lymphocytes % 10 % Monocytes % 7 % Eosinophils % 1 % Basophils % 1 % Neutrophils # 2.7 (1.3-7.7) k/uL Lymphocytes # 0.3 L (1.0-4.8) k/uL Monocytes # 0.2 (0-1.0) k/uL Eosinophils # 0.0 (0-0.7) k/uL Basophils # 0.0 (0-0.2) k/uL Hypochromasia Slight Poikilocytosis Moderate Anisocytosis Slight Macrocytosis Moderate PT 11.4 (9.0-12.0) sec INR 1.1 (<1.2) APTT 23.7 (22.0-30.0) sec Sodium 141 (137-145) mmol/L Potassium 3.5 (3.5-5.1) mmol/L Chloride 108 H (98-107) mmol/L Carbon Dioxide 20 L (22-30) mmol/L Anion Gap 13 mmol/L BUN 38 H (9-20) mg/dL Creatinine 3.20 H (0.66-1.25) mg/dL Est GFR (CKD-EPI)AfAm 21 (>60 ml/min/1.73 sqM) Est GFR (CKD-EPI)NonAf 18 (>60 ml/min/1.73 sqM) Glucose 216 H (74-99) mg/dL Calcium 9.7 (8.4-10.2) mg/dL Total Bilirubin 0.3 (0.2-1.3) mg/dL AST 17 (17-59) U/L ALT 13 (4-49) U/L Alkaline Phosphatase 79 (38-126) U/L Troponin I (0.000-0.034) ng/mL NT-Pro-B Natriuret Pep pg/mL Total Protein 5.5 L (6.3-8.2) g/dL Albumin 3.5 (3.5-5.0) g/dL 06/02/22 06/02/22 Range/Units 19:33 19:33 WBC (3.8-10.6) k/uL RBC (4.30-5.90) m/uL Hgb (13.0-17.5) gm/dL Hct (39.0-53.0) % MCV (80.0-100.0) fL MCH (25.0-35.0) pg MCHC (31.0-37.0) g/dL RDW (11.5-15.5) % Plt Count (150-450) k/uL MPV Neutrophils % % Lymphocytes % % Monocytes % % Eosinophils % % Basophils % % Neutrophils # (1.3-7.7) k/uL Lymphocytes # (1.0-4.8) k/uL Monocytes # (0-1.0) k/uL Eosinophils # (0-0.7) k/uL Basophils # (0-0.2) k/uL Hypochromasia Poikilocytosis Anisocytosis Macrocytosis PT (9.0-12.0) sec INR (<1.2) APTT (22.0-30.0) sec Sodium (137-145) mmol/L Potassium (3.5-5.1) mmol/L Chloride (98-107) mmol/L Carbon Dioxide (22-30) mmol/L Anion Gap mmol/L BUN (9-20) mg/dL Creatinine (0.66-1.25) mg/dL Est GFR (CKD-EPI)AfAm (>60 ml/min/1.73 sqM) Est GFR (CKD-EPI)NonAf (>60 ml/min/1.73 sqM) Glucose (74-99) mg/dL Calcium (8.4-10.2) mg/dL Total Bilirubin (0.2-1.3) mg/dL AST (17-59) U/L ALT (4-49) U/L Alkaline Phosphatase (38-126) U/L Troponin I 0.012 (0.000-0.034) ng/mL NT-Pro-B Natriuret Pep 1120 pg/mL Total Protein (6.3-8.2) g/dL Albumin (3.5-5.0) g/dL Disposition Clinical Impression: Heart failure Disposition: ADMITTED IP TO THIS HOSP Condition: Fair Is patient prescribed a controlled substance at d/c from ED?: No Referrals: Pablo Jon MD [Primary Care Provider] - 1-2 days
--- NOTE | 2022-06-02 20:06 | XR ---
EXAMINATION TYPE: XR chest 2V DATE OF EXAM: 06/02/2022 7:56 PM COMPARISON: Chest radiographs from 03/03/2022 TECHNIQUE: XR chest 2V Frontal and lateral views of the chest. CLINICAL INDICATION:Male, 71 years old with history of dyspnea; FINDINGS: Lungs/Pleura: Layering right pleural effusion. No evidence pneumothorax. Trace left pleural effusion suggested. Pulmonary vascularity: Unremarkable. Heart/mediastinum: Cardiomediastinal silhouette is enlarged and partially obscured due to overlying a nd adjacent opacities. Musculoskeletal: No acute osseous pathology. Midline sternotomy wires are noted. IMPRESSION: 1. Right pleural effusion with associated atelectasis. Overall not significantly changed from 022. Correlate with serum BNP for congestive heart failure. 2. Mild cardiomegaly 3. [id number] with tip in appropriate positions within the superior vena cava.
[2022-06-02 20:09] LABS: Albumin 3.5 g/dL (3.5-5.0); Calcium 9.7 mg/dL (8.4-10.2); Potassium 3.5 mmol/L (3.5-5.1); Total Bilirubin 0.3 mg/dL (0.2-1.3); Total Protein 5.5 g/dL (6.3-8.2)
[2022-06-02 20:19] LABS: INR 1.1 (<1.2); Partial Thromboplastin Time 23.7 sec (22.0-30.0); Prothrombin Time 11.4 sec (9.0-12.0)
[2022-06-02 20:28] LABS: Anisocytosis Slight; Basophils % (A) 1 %; Eosinophils % (A) 1 %; HCT 21.6 % (39.0-53.0); Hypochromasia Slight; Lymphocytes # (A) 0.3 k/uL (1.0-4.8); Lymphocytes % (A) 10 %; MCH 33.1 pg (25.0-35.0); MCHC 32.7 g/dL (31.0-37.0); MCV 101.4 fL (80.0-100.0); Macrocytosis Moderate; Mean Platelet Volume 7.2; Monocytes # (A) 0.2 k/uL (0-1.0); Monocytes % (A) 7 %; Neutrophils # (A) 2.7 k/uL (1.3-7.7); Neutrophils % (A) 81 %; Platelet Count 310 k/uL (150-450); Poikilocytosis Moderate; RBC 2.13 m/uL (4.30-5.90); RDW 19.3 % (11.5-15.5); WBC 3.3 k/uL (3.8-10.6)
[2022-06-02] MEDS ORDERED: FUROSEMIDE 10 MG/ML 4 ML VIAL IV STA (22:15)
[2022-06-02] MEDS ORDERED: ACETAMINOPHEN TAB 500 MG TAB PO STA (22:15)
[2022-06-02] MEDS ORDERED: DOCUSATE 100 MG CAP PO PRN (22:17)
[2022-06-02] MEDS ORDERED: NALOXONE 0.4 MG/ML 1 ML VIAL IV PRN (22:17)
[2022-06-02] MEDS ORDERED: ONDANSETRON 4 MG/2 ML VIAL IVP PRN (22:17)
[2022-06-02] MEDS ORDERED: MAG HYDROX/AL HYDROX/SIMETH 30 ML CUP PO PRN (22:17)
[2022-06-02] MEDS ORDERED: TEMAZEPAM 7.5 MG CAP PO PRN (22:17)
[2022-06-02 23:39] LABS: Glucose,Whole Blood 249 mg/dL (70-110)
[2022-06-03 06:21] LABS: Glucose,Whole Blood 165 mg/dL (70-110)
[2022-06-03] MEDS: INSULIN ASPART (NovoLOG) 100 UNIT/ML VIAL SQ SCH ×5 (06:42→20:17)
[2022-06-03] MEDS ORDERED: FUROSEMIDE 80 MG TAB PO SCH (09:00)
[2022-06-03] MEDS ORDERED: AMIODARONE 200 MG TAB PO SCH (09:00)
[2022-06-03] MEDS ORDERED: hydrALAZINE HCL 50 MG TAB PO SCH (09:00)
[2022-06-03] MEDS: allopurinoL 100 MG TAB PO SCH (09:45)
[2022-06-03] MEDS ORDERED: CHOLESTYRAMINE (WITH SUGAR) 4 GM PACKET PO SCH (09:45)
[2022-06-03] MEDS: METOPROLOL SUCCINATE (ER) 25 MG TAB.ER.24H PO SCH (09:47)
[2022-06-03] MEDS: FERROUS SULFATE 325 MG TAB PO SCH (09:47)
[2022-06-03] MEDS: TAMSULOSIN 0.4 MG CAP.ER.24H PO SCH ×2 (09:48→20:18)
[2022-06-03] MEDS: FUROSEMIDE 10 MG/ML 4 ML VIAL IV SCH ×3 (09:48→23:51)
[2022-06-03] MEDS: APIXABAN 5 MG TAB PO SCH ×2 (09:48→20:18)
[2022-06-03] MEDS: FOLIC ACID 1 MG TAB PO SCH (09:48)
[2022-06-03] MEDS: amLODIPine 5 MG TAB PO SCH (09:48)
[2022-06-03] MEDS ORDERED: DEXTROSE 50% SYRINGE 50 ML IVP PRN ×2 (10:00)
--- NOTE | 2022-06-03 10:02 | P.HPIM ---
History of Present Illness H&P Date: 06/03/22 HISTORY OF PRESENT ILLNESS: this is a 71-year-old male with a previous medical history significant for hypertension and hypertensive cardiovascular disease with left ventricular hypertrophy, hyperlipidemia, diabetes mellitus type 2, with diabetic polyneuropathy, history of coronary artery disease status post coronary artery bypass graft x3 followed by stent, history of atrial fibrillation status post ablation on long-term eliquis, history of meningioma status post resection back in April 2013 with left-sided weakness, history of chronic kidney disease stage IV currently under the care of nephrology with plan for CAPD at later date, history of anemia of chronic kidney disease, history of secondary hyperparathyroidism. Patient also has history of newly diagnosed breast cancer on the right side status post biopsy which revealed invasive moderately differentiated ductal carcinoma status post chemotherapy 10 treatments out of 12 completed as of one week ago today. Plan is for radiation therapy following and then surgical intervention. Patient is complaining of diarrhea which she states does not stop. He is on Questran and Lomotil. He states yesterday it was significantly worse. He states the diarrhea is watery and he has incontinence. Patient also developed edema to the lower extremities left greater than right for the past week along with shortness of breath and orthopnea. Regarding renal failure, patient follows with Dr. Campos and there is plan for CAPD once his cancer treatment is completed. He is making urine. Patient does complain of difficulty sleeping. Patient came into [facility] emergency center for evaluation. He was found to be afebrile, heart rate 80, blood pressure 114/62, pulse ox 97% on room air. WBC 3.3, hemoglobin 7, platelet count 310. INR 1.1. Sodium 141, potassium 3.5, chloride 108, CO2 20, BUN 38 creatinine 3.2. Glucose 216. Liver function tests normal. Troponin negative on 3 draws. Albumin 3.5. ProBNP 1120. Chest x-ray reveals right pleural effusion with associated atelectasis. Overall not significant change from 03/03/2022. Mild cardiomegaly. [id number] within the superior vena cava. Patient was admitted to the cardiac stepdown unit and cardiology consult and nephrology consult ordered. Will add in consult for oncology, patient's oncologist is Dr. Cameron. He has been started on Lasix 40 mg IV push every 8 hours. REVIEW OF SYSTEMS: Constitutional: No documented fever, no chills, no night sweats. No weight change. positive for weakness, fatigue or lethargy. No daytime sleepiness. HEENT: No headache. No blurred vision or double vision, no loss of vision. No loss of Hearing, no ringing in the ears, no dizziness. No nasal drainage or congestion. No epistaxis. No sore throat. Lungs: positive for shortness of breath, no cough, no sputum production. No wheezing. Reports dyspnea with activity. Cardiovascular: No chest pain, reports lower extremity edema. No palpitations. No paroxysmal nocturnal dyspnea. Reports orthopnea. No lightheadedness or dizziness. No syncopal episodes. Abdominal: Reports no abdominal pain. No nausea, vomiting. Reports diarrhea. No constipation. No bloody or tarry stools reports loss of appetite. Genitourinary: No dysuria, increased frequency, urgency. No urinary retention. Musculoskeletal: No myalgias. positive for chronic left sided weakness, positive for gait dysfunction, no frequent falls. positive for back pain. positive for neck pain. Integumentary: No wounds, no lesions. No rash or pruritus. No unusual bruising. No change in hair or nails. Neurologic: No aphasia. No facial droop. No change in mentation. No head injury. No headache, positive for left sided weakness and left foot drop. Psychiatric: positive for depression. No anxiety. No mood swings. Endocrine: No abnormal blood sugars. No weight change. PAST MEDICAL HISTORY: Coronary artery disease status post coronary artery bypass graft 3 with PCI. Hypertension and hypertensive cardio vascular disease. Hyperlipidemia. Diabetes mellitus type 2. History of meningioma status post resection April 2013 with resultant left- sided weakness. Paroxysmal Atrial fibrillation. Diabetic polyneuropathy. Enlarged prostate. GERD. DVT. Osteoarthritis. Chronic kidney disease stage IV. Anemia of chronic kidney disease. Secondary hyperparathyroidism. Ductal carcinoma right breast PAST SURGICAL HISTORY: CABG 3. Left heart catheterization with PCI. Bilateral cataract surgery with implants. Right arthroscopic knee surgery. Meningioma resection with resultant left-sided weakness. Tonsillectomy and adenoidectomy. Cholecystectomy. EGD and colonoscopy. Cardiac ablation. IVC [place] filter placement. [id number] SOCIAL HISTORY: Patient is a lifelong nonsmoker he denies any history of drinking he denies any history of drug use or abuse he currently lives with his , he uses a sliding board, he uses a wheelchair and a scooter to ambulate around. FAMILY HISTORY: Mother at age of 92 from natural causes, father at age of 83 from congestive heart failure, patient has one adopted brother, 2 sisters who are okay, patient has one son with no major medical problems and one daughter with hypothyroidism. PHYSICAL EXAMINATION: General: this is a 71-year-old male who is sitting up in bed appears to be in no respiratory distress at rest. HEENT: Head is atraumatic, normocephalic, pupils were equal round reactive to light and recommendation, extraocular muscle movement were intact, sclera nonicteric, conjunctivae were pale, mucous membranes of the mouth are somewhat dry. Neck: Supple, no JVP, normal carotid upstroke bilaterally, no lymphadenopathy. Chest: Decreased breath sounds at the bases with decreased tactile fremitus, few rhonchi, no expiratory wheezes, no chest wall tenderness, no intercostal retractions. Heart: First heart sound is normal, second heart sounds normal, irregularly irregular, there is systolic initial murmur 2/6 located in the left sternal border. Abdomen: Soft, nontender, nondistended, positive bowel sounds. Extremities: There is +2 edema to the bilateral lower extremities left greater than right no calf tenderness DP +2 bilaterally. Neurologic examination: Patient is awake alert and oriented X3 , cranial nerves II-12 appear grossly intact, there is left-sided weakness with left foot drop. ASSESSMENT AND PLAN: 1. Acute diastolic heart failure with right pleural effusion. Continue patient on metoprolol XL 25 mg orally once every day, continue patient on Lasix 40 mg IV push every 8 hours, monitor input and output and daily weight, continue patient also on hydralazine 75 mg orally twice every day, cardiology consultation. 2. Right-sided breast cancer status post chemotherapy 06/25 treatments. Cons ult with oncology. 3. Diarrhea secondary to chemotherapy. Patient will be resumed on Questran 4 g twice daily, Lomotil one daily. 4. Right pleural effusion with atelectasis. 5. Bicytopenia secondary to chemotherapy. Continue to monitor. 6. History of CAD post CABG as well as PCI and stent placement. Continue patient on metoprolol XL 25 mg once every day, pravastatin 40 mg at bedtime. 7. History of paroxysmal atrial fibrillation. Continue patient on Eliquis 5 mg orally twice every day, continue amiodarone 100 mg orally once every day, metoprolol XL 25 mg orally once every day. 8. Hypertension and hypertensive cardiovascular disease. Continue patient on amlodipine 5 mg once every day, continue with metoprolol ER 25 mg orally once every day, monitor the patient blood pressure very closely. 9. Hyperlipidemia. Continue patient on pravastatin 40 mg at bedtime, monitor lipid panel, keep LDL 55-70. 10. Chronic kidney disease stage IV. Avoid nephrotoxic agents, consult nephrology. 11. History of enlarged prostate. Continue Flomax 0.4 mg once every day, monitor for urinary retention. 12. Diabetes mellitus type 2. Continue Lantus 30 units at bedtime along with NovoLog 25 units before each been 2 times every day, monitor the patient blood glucose level and at bedtime with NovoLog scale 13. Diabetic polyneuropathy. Stable. 14. History of DVT status post IVC filter placement, continue with Eliquis 5 mg orally twice every day. 15. history of gout. Continue patient on allopurinol 100 mg orally once every day. 16. History of meningioma with left-sided weakness. Physical therapy evaluation. Admit to inpatient. Estimate a length of stay 2 midnights. Patient is a full code. Impression and plan of care have been directed as dictated by the signing physician. Nita Linn nurse practitioner acting as scribe for signing physician. Past Medical History Past Medical History: Atrial Fibrillation, Atrial Flutter, Coronary Artery Disease (CAD), Cancer, Diabetes Mellitus, Deep Vein Thrombosis (DVT), Eye Di sorder, GERD/Reflux, Hyperlipidemia, Hypertension, Myocardial Infarction (CA), Neurologic Disorder, Osteoarthritis (OA), Prostate Disorder, Sleep Apnea/CPAP/BIPAP Additional Past Medical History / Comment(s): Current right breast cancer. HX OF POLYPS, BLOOD IN STOOL, uti's. Hx tailbone fracture, neuropathy to feet. Blind in right eye. Hx encephalopathy, meningioma with left sided weakness, cannot use left leg, wheelcahir bound. PT CAN'T HAVE ANY VACCINES THAT ARE LIVE VIRUSES. PLEASE USE PAPER TAPE ONLY(PT HAS THIN SKIN). uses slide board at home to transfer pt to w/c, with 2 person assist pt can stand/pivot to chair. Last Myocardial Infarction Date:: 02-11-2005 History of Any Multi-Drug Resistant Organisms: None Reported Past Surgical History: Adenoidectomy, Cardiac Ablation, Cholecystectomy, Coronary Bypass/CABG, Heart Catheterization With Stent, Orthopedic Surgery, Tonsillectomy Additional Past Surgical History / Comment(s): Triple bypass, Meningioma Removed from Brain 04/2013, peg tube- removed 9 years ago, [place] FILTER, BILATERAL CATARACTS- LENS IMPLANTS, COLONOSCOPY/POLYPECTOMY, RIGHT KNEE ARTHROSCOPY. Past Anesthesia/Blood Transfusion Reactions: No Reported Reaction Date of Last Stent Placement:: 2004 Past Psychological History: Depression Additional Psychological History / Comment(s): PT UNABLE TO AMBULATE BUT ABLE TO STAND WITH ASSIST OF 2 /PIVOT TO W/C OR MOTORIZED CHAIR. PT'S IS HIS SCUBA DIVER-SHE USES A SLIDE BOARD Smoking Status: Never smoker Past Alcohol Use History: None Reported Past Drug Use History: None Reported - Past Family History Father History Unknown: Yes Family Medical History: Congestive Heart Failure (CHF) Mother History Unknown: Yes Additional Family Medical History / Comment(s): STILL ALIVE AT AGE 90 IN [facility] Medications and Allergies Home Medications Medication Instructions Recorded Confirmed Type Tamsulosin HCl [Flomax] 0.4 mg PO BID 06/19/15 06/03/22 History amLODIPine [Norvasc] 5 mg PO DAILY 07/09/16 06/03/22 History Apixaban [Eliquis] 5 mg PO BID 03/21/21 06/03/22 History Ferrous Sulfate [Iron (65 MG 325 mg PO DAILY 03/21/21 06/03/22 History Elemental)] INSULIN ASPART (NovoLOG) [NovoLOG 25 unit SQ AC-BID 03/21/21 06/03/22 History (formulary)] Pravastatin Sodium [Pravachol] 40 mg PO HS 03/21/21 06/03/22 History allopurinoL [Zyloprim] 100 mg PO DAILY 03/21/21 06/03/22 History hydrALAZINE HCL [Apresoline] 75 mg PO BID 03/21/21 06/03/22 History Cholecalciferol [Vitamin D3 (25 25 mcg PO DAILY 01/13/22 06/03/22 History Mcg = 1000 Iu)] Amiodarone [Cordarone] 100 mg PO DAILY 02/07/22 06/03/22 History Folic Acid 0.8 mg PO DAILY 02/07/22 06/03/22 History Furosemide [Lasix] 80 mg PO DAILY 02/07/22 06/03/22 History Metoprolol Succinate (ER) [Toprol 25 mg PO DAILY 02/07/22 06/03/22 History XL] Cholestyramine (with Sugar) 4 gm PO BID 06/03/22 06/03/22 History [Questran] Diphenoxylate HCl/Atropine 1 tab PO DAILY 06/03/22 06/03/22 History [Lomotil 2.5-0.025 mg Tablet] Insulin Glargine,Hum.rec.anlog 36 units SQ HS 06/03/22 06/03/22 History [Lantus Solostar Pen] Lidocaine-Prilocaine Cream [Emla 1 applic TOPICAL DAILY PRN 06/03/22 06/03/22 History Cream 2.5%/2.5%] calcitrioL [Calcitriol] 0.25 mcg PO MO 06/03/22 06/03/22 History Allergies Allergy/AdvReac Type Severity Reaction Status Date / Time Penicillins Allergy Unknown Rash/Hives Verified 06/03/22 09:13 adhesive AdvReac skin tears Verified 06/03/22 09:13 Physical Exam Vitals: Vital Signs Temp Pulse Pulse Resp BP BP Pulse Ox 06/03/22 03:57 98.0 F 85 18 160/70 99 06/03/22 02:00 84 18 06/02/22 23:55 84 18 06/02/22 23:34 97.9 F 84 18 153/81 99 06/02/22 23:06 82 14 145/74 97 06/02/22 21:00 79 18 140/75 96 06/02/22 19:34 81 20 132/62 96 06/02/22 16:40 97.7 F 80 22 114/62 97 Intake and Output 06/02/22 06/03/22 06/03/22 22:59 06:59 14:59 Intake Total 10 Output Total 225 Balance -215 Intake: IV 10 0.9 10 Output: Urine 225 Other: Voiding Method Urinal # Bowel Movements 1 Weight 106.594 kg 106.594 kg Results CBC & Chem 7: 06/02/22 19:33 06/02/22 19:33 Labs: Abnormal Lab Results - Last 24 Hours (Table) 06/02/22 06/02/22 06/02/22 Range/Units 19:33 19:33 23:37 WBC 3.3 L (3.8-10.6) k/uL RBC 2.13 L (4.30-5.90) m/uL Hgb 7.0 L (13.0-17.5) gm/dL Hct 21.6 L (39.0-53.0) % MCV 101.4 H (80.0-100.0) fL RDW 19.3 H (11.5-15.5) % Lymphocytes # 0.3 L (1.0-4.8) k/uL Chloride 108 H (98-107) mmol/L Carbon Dioxide 20 L (22-30) mmol/L BUN 38 H (9-20) mg/dL Creatinine 3.20 H (0.66-1.25) mg/dL Glucose 216 H (74-99) mg/dL POC Glucose (mg/dL) 249 H (70-110) mg/dL Total Protein 5.5 L (6.3-8.2) g/dL 06/03/22 Range/Units 06:20 WBC (3.8-10.6) k/uL RBC (4.30-5.90) m/uL Hgb (13.0-17.5) gm/dL Hct (39.0-53.0) % MCV (80.0-100.0) fL RDW (11.5-15.5) % Lymphocytes # (1.0-4.8) k/uL Chloride (98-107) mmol/L Carbon Dioxide (22-30) mmol/L BUN (9-20) mg/dL Creatinine (0.66-1.25) mg/dL Glucose (74-99) mg/dL POC Glucose (mg/dL) 165 H (70-110) mg/dL Total Protein (6.3-8.2) g/dL Thrombosis Risk Factor Assmnt - Choose All That Apply Each Factor Represents 1 point: Heart failure (<1month), Obesity (BMI >25), Swollen legs (current) Other Risk Factors: Yes Each Risk Factor Represents 2 Points: Age 61-74 years Other congenital or acquired thrombophilia - If yes, enter type in comment: No Thrombosis Risk Factor Assessment Total Risk Factor Score: 5 Thrombosis Risk Factor Assessment Level: High Risk
[2022-06-03] MEDS: POTASSIUM CHLORIDE ER 20 MEQ TAB.ER PO SCH (10:40)
[2022-06-03] MEDS: DIPHENOX-ATROP 2.5-0.025 MG 1 EACH TAB PO SCH (10:40)
--- NOTE | 2022-06-03 10:52 | P.CRDCN ---
History of Present Illness Consult date: 06/03/22 History of present illness: HISTORY OF PRESENT ILLNESS: This is a 71-year-old male with a past medical history significant for paroxysmal atrial fibrillation with previous ablation, coronary artery disease with three-vessel CABG in 2004, sick sinus syndrome, breast cancer on chemotherapy, hypertension, diabetes, and chronic kidney disease. Patient follows in the office with Dr. Turcios. We have been asked to see the patient in consultation for congestive heart failure. Patient examined at the bedside. Patient reports she has been feeling short of breath for the past 4 days. He also reports some lower extremity edema. He denies any chest pain or pressure. He states he received his chemotherapy treatment about a week ago and has not b een feeling very well since that time. The patient states he is taking his Eliquis 5 mg at night only because he cannot afford to take his Eliquis twice a day. Discussed importance of taking his Eliquis BID at home. * Telemetry reveals atrial fibrillation with controlled ventricular rate * Chest xray right pleural effusion with associated atelectasis. Mild cardiomegaly. * Laboratory data: WBC 3.3. Hemoglobin 7.0. Platelet count 310. Sodium 141. Potassium 3.5. BUN 38. Creatinine 3.2. Troponin negative 3. ProBNP 1120. * Current home cardiac medications include Eliquis 5mg BID, amiodarone 100 mg daily, Lasix 80 mg daily, metoprolol succinate 25 mg daily, Pravachol 40 mg at night, Norvasc 5 mg daily, and hydralazine 75 mg twice a day * Most recent echocardiogram obtained in March 2021 revealed ejection fraction 50-55%, apical inferior and apical septal LV wall hypokinesis, mild aortic stenosis, mild MR, mild TR REVIEW OF SYSTEMS: At the time of my exam: CONSTITUTIONAL: Denies fever or chills. HEENT: Denies blurred vision, vision changes, or eye pain. Denies hemoptysis CARDIOVASCULAR: Denies chest pain. Denies orthopnea. Denies PND. Denies palpi tations RESPIRATORY: Denies shortness of breath. GASTROINTESTINAL: Denies abdominal pain. Denies nausea or vomiting. HEMATOLOGIC: Denies bleeding disorders. GENITOURINARY: Denies any blood in urine. SKIN: Denies pruitis. Denies rash. PHYSICAL EXAM: VITAL SIGNS: Reviewed. GENERAL: Well-developed in no acute distress. HEENT: Head is normocephalic. Pupils are equal, round. Sclerae anicteric. Mucous membranes of the mouth are moist. Neck supple. No JVD or thyromegaly LUNGS: Respirations even and unlabored. Lungs diminished to auscultation bilaterally. HEART: Irregular rate and rhythm. S1 and S2 heard. Systolic murmur noted ABDOMEN: Soft. Nondistended. Nontender. EXTREMITIES: Normal range of motion. No clubbing or cyanosis. Peripheral pulses intact. 1+ bilateral lower extremity edema NEUROLOGIC: Awake and alert. Oriented x 3. ASSESSMENT: Shortness of breath Acute on chronic heart failure with preserved ejection fraction Chronic kidney disease Paroxysmal atrial fibrillation Coronary artery disease with previous three-vessel CABG History of atrial fibrillation ablation History of breast cancer on chemotherapy Hypertension Hyperlipidemia Diabetes PLAN: Obtain 2-D echo to assess cardiac structure and function Resume home cardiac medications Begin Lasix 40 mg IV every 8 hours Monitor kidney function. Consult nephrology. Change Eliquis dosing to BID. Discussed importance of BID dosing with patient. Further recommendations pending patient course Nurse practitioner note has been reviewed by physician. Signing provider agrees with the documented findings, assessment, and plan of care. Past Medical History Past Medical History: Atrial Fibrillation, Atrial Flutter, Coronary Artery Disease (CAD), Cancer, Diabetes Mellitus, Deep Vein Thrombosis (DVT), Eye Disorder, GERD/Reflux, Hyperlipidemia, Hypertension, Myocardial Infarction ([place]), Neurologic Disorder, Osteoarthritis ([place]), Prostate Disorder, Sleep Apnea/CPAP/BIPAP Additional Past Medical History / Comment(s): Current right breast cancer. HX OF POLYPS, BLOOD IN STOOL, uti's. Hx tailbone fracture, neuropathy to feet. Blind in right eye. Hx encephalopathy, meningioma with left sided weakness, cannot use left leg, wheelcahir bound. PT CAN'T HAVE ANY VACCINES THAT ARE LIVE VIRUSES. PLEASE USE PAPER TAPE ONLY(PT HAS THIN SKIN). uses slide board at home to transfer pt to w/c, with 2 person assist pt can stand/pivot to chair. Last Myocardial Infarction Date:: 02-11-2005 History of Any Multi-Drug Resistant Organisms: None Reported Past Surgical History: Adenoidectomy, Cardiac Ablation, Cholecystectomy, Coronary Bypass/CABG, Heart Catheterization With Stent, Orthopedic Surgery, Tonsillectomy Additional Past Surgical History / Comment(s): Triple bypass, Meningioma Removed from Brain 04/2013, peg tube- removed 9 years ago, DESTINEY FILTER, BILATERAL CATARACTS- LENS IMPLANTS, COLONOSCOPY/POLYPECTOMY, RIGHT KNEE ARTHROSCOPY. Past Anesthesia/Blood Transfusion Reactions: No Reported Reaction Date of Last Stent Placement:: 2004 Past Psychological History: Depression Additional Psychological History / Comment(s): PT UNABLE TO AMBULATE BUT ABLE TO STAND WITH ASSIST OF 2 /PIVOT TO W/C OR MOTORIZED CHAIR. 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 Smoking Status: Never smoker Past Alcohol Use History: None Reported Past Drug Use History: None Reported - Past Family History Father History Unknown: Yes Family Medical History: Congestive Heart Failure (CHF) Mother History Unknown: Yes Additional Family Medical History / Comment(s): STILL ALIVE AT AGE 90 IN [facility] Medications and Allergies Home Medications Medication Instructions Recorded Confirmed Type Tamsulosin HCl [Flomax] 0.4 mg PO BID 06/19/15 06/03/22 History amLODIPine [Norvasc] 5 mg PO DAILY 07/09/16 06/03/22 History Apixaban [Eliquis] 5 mg PO BID 03/21/21 06/03/22 History Ferrous Sulfate [Iron (65 MG 325 mg PO DAILY 03/21/21 06/03/22 History Elemental)] INSULIN ASPART (NovoLOG) [NovoLOG 25 unit SQ AC-BID 03/21/21 06/03/22 History (formulary)] Pravastatin Sodium [Pravachol] 40 mg PO HS 03/21/21 06/03/22 History allopurinoL [Zyloprim] 100 mg PO DAILY 03/21/21 06/03/22 History hydrALAZINE HCL [Apresoline] 75 mg PO BID 03/21/21 06/03/22 History Cholecalciferol [Vitamin D3 (25 25 mcg PO DAILY 01/13/22 06/03/22 History Mcg = 1000 Iu)] Amiodarone [Cordarone] 100 mg PO DAILY 02/07/22 06/03/22 History Folic Acid 0.8 mg PO DAILY 02/07/22 06/03/22 History Furosemide [Lasix] 80 mg PO DAILY 02/07/22 06/03/22 History Metoprolol Succinate (ER) [Toprol 25 mg PO DAILY 02/07/22 06/03/22 History XL] Cholestyramine (with Sugar) 4 gm PO BID 06/03/22 06/03/22 History [Questran] Diphenoxylate HCl/Atropine 1 tab PO DAILY 06/03/22 06/03/22 History [Lomotil 2.5-0.025 mg Tablet] Insulin Glargine,Hum.rec.anlog 36 units SQ HS 06/03/22 06/03/22 History [Lantus Solostar Pen] Lidocaine-Prilocaine Cream [Emla 1 applic TOPICAL DAILY PRN 06/03/22 06/03/22 History Cream 2.5%/2.5%] calcitrioL [Calcitriol] 0.25 mcg PO MO 06/03/22 06/03/22 History Allergies Allergy/AdvReac Type Severity Reaction Status Date / Time Penicillins Allergy Unknown Rash/Hives Verified 06/03/22 09:13 adhesive AdvReac skin tears Verified 06/03/22 09:13 Physical Exam Vitals: Vital Signs Temp Pulse Pulse Resp BP BP Pulse Ox 06/03/22 08:13 85 12 06/03/22 08:00 97.9 F 85 12 148/74 06/03/22 07:37 85 06/03/22 03:57 98.0 F 85 18 160/70 99 06/03/22 02:00 84 18 06/02/22 23:55 84 18 06/02/22 23:34 97.9 F 84 18 153/81 99 06/02/22 23:06 82 14 145/74 97 06/02/22 21:00 79 18 140/75 96 06/02/22 19:34 81 20 132/62 96 06/02/22 16:40 97.7 F 80 22 114/62 97 Intake and Output 06/02/22 06/03/22 06/03/22 22:59 06:59 14:59 Intake Total 10 240 Output Total 225 Balance -215 240 Intake: IV 10 0.9 10 Oral 240 Output: Urine 225 Other: Voiding Method Urinal Bedpan Urinal # Bowel Movements 1 1 Weight 106.594 kg 106.594 kg Results 06/02/22 19:33 06/02/22 19:33 Cardiac Enzymes 06/02/22 06/02/22 06/02/22 Range/Units 19:33 19:33 22:41 AST 17 (17-59) U/L Troponin I 0.012 <0.012 (0.000-0.034) ng/mL 06/03/22 Range/Units 01:09 AST (17-59) U/L Troponin I 0.012 (0.000-0.034) ng/mL Coagulation 06/02/22 Range/Units 19:33 PT 11.4 (9.0-12.0) sec APTT 23.7 (22.0-30.0) sec CBC 06/02/22 Range/Units 19:33 WBC 3.3 L (3.8-10.6) k/uL RBC 2.13 L (4.30-5.90) m/uL Hgb 7.0 L (13.0-17.5) gm/dL Hct 21.6 L (39.0-53.0) % Plt Count 310 (150-450) k/uL Comprehensive Metabolic Panel 06/02/22 Range/Units 19:33 Sodium 141 (137-145) mmol/L Potassium 3.5 (3.5-5.1) mmol/L Chloride 108 H (98-107) mmol/L Carbon Dioxide 20 L (22-30) mmol/L BUN 38 H (9-20) mg/dL Creatinine 3.20 H (0.66-1.25) mg/dL Glucose 216 H (74-99) mg/dL Calcium 9.7 (8.4-10.2) mg/dL AST 17 (17-59) U/L ALT 13 (4-49) U/L Alkaline Phosphatase 79 (38-126) U/L Total Protein 5.5 L (6.3-8.2) g/dL Albumin 3.5 (3.5-5.0) g/dL Current Medications Generic Name Dose Route Start Last Admin Trade Name Freq PRN Reason Stop Dose Admin Hydrocodone Bitart/Acetaminophen 1 each 06/02/22 22:17 Hydrocodone/Apap 5-325mg 1 Each Tab PO Q4HR PRN Moderate Pain (Scale 4 to 6) Al Hydroxide/Mg Hydroxide 15 ml 06/02/22 22:17 Mag Hydrox/Al Hydrox/Simeth 30 Ml Cup PO Q6HR PRN Indigestion Allopurinol 100 mg 06/03/22 09:00 06/03/22 09:45 Allopurinol 100 Mg Tab PO 100 mg QAM KENNEDI Administration Amiodarone HCl 100 mg 06/04/22 09:00 Amiodarone 100 Mg Tab PO QAM [facility] Amlodipine Besylate 5 mg 06/03/22 09:00 06/03/22 09:48 Amlodipine 5 Mg Tab PO 5 mg QAM KENNEDI Administration Apixaban 5 mg 06/03/22 09:00 06/03/22 09:48 Apixaban 5 Mg Tab PO 5 mg BID KENNEDI Administration Protocol Cholecalciferol 25 mcg 06/04/22 09:00 Cholecalciferol 25 Mcg (1000 Iu) Tablet PO DAILY [facility] Cholestyramine Resin 4 gm 06/03/22 09:45 06/03/22 10:41 Cholestyramine (With Sugar) 4 Gm Packet PO Not Given BID [facility] Dextrose/Water 25 ml 06/03/22 10:00 Dextrose 50% Syringe 50 Ml IVP PER PROTOCOL PRN Hypoglycemia Protocol Dextrose/Water 50 ml 06/03/22 10:00 Dextrose 50% Syringe 50 Ml IVP PER PROTOCOL PRN Hypoglycemia Protocol Diphenoxylate HCl/Atropine 1 each 06/03/22 09:45 06/03/22 10:40 Diphenox-Atrop 2.5-0.025 Mg 1 Each Tab PO 1 each DAILY [facility] Administration Docusate Sodium 100 mg 06/02/22 22:17 Docusate 100 Mg Cap PO BID PRN Constipation Famotidine 20 mg 06/04/22 09:00 Famotidine 20 Mg Tab PO DAILY [facility] Ferrous Sulfate 325 mg 06/03/22 09:00 06/03/22 09:47 Ferrous Sulfate 325 Mg Tab PO 325 mg DAILY [facility] Administration Folic Acid 1 mg 06/03/22 09:00 06/03/22 09:48 Folic Acid 1 Mg Tab PO 1 mg DAILY [facility] Administration Furosemide 40 mg 06/03/22 08:30 06/03/22 09:48 Furosemide 10 Mg/Ml 4 Ml Vial IV 40 mg Q8HR [facility] Administration Hydralazine HCl 75 mg 06/03/22 21:00 Hydralazine Hcl 25 Mg Tab PO BID [facility] Insulin Aspart 25 unit 06/03/22 07:30 06/03/22 06:42 Insulin Aspart (Novolog) 100 Unit/Ml Vial SQ Not Given AC-BID [facility] Insulin Aspart 0 unit 06/03/22 12:30 Insulin Aspart (Novolog) 100 Unit/Ml Vial SQ ACHS [facility] Protocol Insulin Detemir 30 unit 06/03/22 21:00 Insulin Detemir (Levemir) 100 Unit/Ml Syr SQ HS [facility] Melatonin 3 mg 06/03/22 21:00 Melatonin 3 Mg Tablet PO HS KENNEDI Metoprolol Succinate 25 mg 06/03/22 09:00 06/03/22 09:47 Metoprolol Succinate (Er) 25 Mg Tab.Er.24h PO 25 mg QAM KENNEDI Administration Naloxone HCl 0.2 mg 06/02/22 22:17 Naloxone 0.4 Mg/Ml 1 Ml Vial IV Q2M PRN Opioid Reversal Ondansetron HCl 4 mg 06/02/22 22:17 Ondansetron 4 Mg/2 Ml Vial IVP Q8HR PRN Nausea And Vomiting Potassium Chloride 20 meq 06/03/22 09:45 06/03/22 10:40 Potassium Chloride Er 20 Meq Tab.Er PO 20 meq DAILY KENNEDI Administration Pravastatin Sodium 40 mg 06/03/22 21:00 Pravastatin Sodium 40 Mg Tab PO HS KENNEDI Tamsulosin HCl 0.4 mg 06/03/22 09:00 06/03/22 09:48 Tamsulosin 0.4 Mg Cap.Er.24h PO 0.4 mg BID KENNEDI Administration Temazepam 15 mg 06/02/22 22:17 Temazepam 7.5 Mg Cap PO HS PRN Insomnia Intake and Output 06/02/22 06/03/22 06/03/22 22:59 06:59 14:59 Intake Total 10 240 Output Total 225 Balance -215 240 Intake: IV 10 0.9 10 Oral 240 Output: Urine 225 Other: Voiding Method Urinal Bedpan Urinal # Bowel Movements 1 1 Weight 106.594 kg 106.594 kg 06/02/22 19:33 06/02/22 19:33
[2022-06-03 11:46] LABS: Glucose,Whole Blood 192 mg/dL (70-110)
--- NOTE | 2022-06-03 12:06 | P.NPCON ---
History of Present Illness - Reason for Consult acute renal failure - History of Present Illness Patient is a 71-year-old male with history of hypertension, diabetes mellitus type 2, coronary artery disease with history of coronary artery bypass surgery, atrial fibrillation, CK D NKF stage IV secondary to nephrosclerosis with baseline creatinine around 3.5 to 4 mg/dL. Patient also has underlying history of breast cancer currently maintained on chemotherapy. He is admitted to the hospital with complaints of significant diarrhea for which patient had taken the medication and subsequently developed constipation and this was followed by another episode of profuse diarrhea. Patient has noticed increased lower extremity swelling. He does not walk and is wheelchair-bound. No history of shortness of breath cough fever or chills Serum creatinine was 3.2 mg/dL yesterday on 06/02/2022 and we have another creatinine of 3.7 on 05/06/2022 Currently voiding and urinal No hypotension noted No complaints of shortness of breath Maintained on IV Lasix 40 mg every 8 hours Review of Systems As per HPI Past Medical History Past Medical History: Atrial Fibrillation, Atrial Flutter, Coronary Artery Disease (CAD), Cancer, Diabetes Mellitus, Deep Vein Thrombosis (DVT), Eye Disorder, GERD/Reflux, Hyperlipidemia, Hypertension, Myocardial Infarction ([place]), Neurologic Disorder, Osteoarthritis (OA), Prostate Disorder, Sleep Apnea/CPAP/BIPAP Additional Past Medical History / Comment(s): Current right breast cancer. HX OF POLYPS, BLOOD IN STOOL, uti's. Hx tailbone fracture, neuropathy to feet. Blind in right eye. Hx encephalopathy, meningioma with left sided weakness, cannot use left leg, wheelcahir bound. PT CAN'T HAVE ANY VACCINES THAT ARE LIVE VIRUSES. PLEASE USE PAPER TAPE ONLY(PT HAS THIN SKIN). uses slide board at home to transfer pt to w/c, with 2 person assist pt can stand/pivot to chair. Last Myocardial Infarction Date:: 02-11-2005 History of Any Multi-Drug Resistant Organisms: None Reported Past Surgical History: Adenoidectomy, Cardiac Ablation, Cholecystectomy, Coronary Bypass/CABG, Heart Catheterization With Stent, Orthopedic Surgery, Tonsillectomy Additional Past Surgical History / Comment(s): Triple bypass, Meningioma Removed from Brain 04/2013, peg tube- removed 9 years ago, DESTINEY FILTER, BILATERAL CATARACTS- LENS IMPLANTS, COLONOSCOPY/POLYPECTOMY, RIGHT KNEE ARTHROSCOPY. Past Anesthesia/Blood Transfusion Reactions: No Reported Reaction Date of Last Stent Placement:: 2004 Past Psychological History: Depression Additional Psychological History / Comment(s): PT UNABLE TO AMBULATE BUT ABLE TO STAND WITH ASSIST OF 2 /PIVOT TO W/C OR MOTORIZED CHAIR. 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 Smoking Status: Never smoker Past Alcohol Use History: None Reported Past Drug Use History: None Reported - Past Family History Father History Unknown: Yes Family Medical History: Congestive Heart Failure (CHF) Mother History Unknown: Yes Additional Family Medical History / Comment(s): STILL ALIVE AT AGE 90 IN [facility] Medications and Allergies Home Medications Medication Instructions Recorded Confirmed Type Tamsulosin HCl [Flomax] 0.4 mg PO BID 06/19/15 06/03/22 History amLODIPine [Norvasc] 5 mg PO DAILY 07/09/16 06/03/22 History Apixaban [Eliquis] 5 mg PO BID 03/21/21 06/03/22 History Ferrous Sulfate [Iron (65 MG 325 mg PO DAILY 03/21/21 06/03/22 History Elemental)] INSULIN ASPART (NovoLOG) [NovoLOG 25 unit SQ AC-BID 03/21/21 06/03/22 History (formulary)] Pravastatin Sodium [Pravachol] 40 mg PO HS 03/21/21 06/03/22 History allopurinoL [Zyloprim] 100 mg PO DAILY 03/21/21 06/03/22 History hydrALAZINE HCL [Apresoline] 75 mg PO BID 03/21/21 06/03/22 History Cholecalciferol [Vitamin D3 (25 25 mcg PO DAILY 01/13/22 06/03/22 History Mcg = 1000 Iu)] Amiodarone [Cordarone] 100 mg PO DAILY 02/07/22 06/03/22 History Folic Acid 0.8 mg PO DAILY 02/07/22 06/03/22 History Furosemide [Lasix] 80 mg PO DAILY 02/07/22 06/03/22 History Metoprolol Succinate (ER) [Toprol 25 mg PO DAILY 02/07/22 06/03/22 History XL] Cholestyramine (with Sugar) 4 gm PO BID 06/03/22 06/03/22 History [Questran] Diphenoxylate HCl/Atropine 1 tab PO DAILY 06/03/22 06/03/22 History [Lomotil 2.5-0.025 mg Tablet] Insulin Glargine,Hum.rec.anlog 36 units SQ HS 06/03/22 06/03/22 History [Lantus Solostar Pen] Lidocaine-Prilocaine Cream [Emla 1 applic TOPICAL DAILY PRN 06/03/22 06/03/22 History Cream 2.5%/2.5%] calcitrioL [Calcitriol] 0.25 mcg PO MO 06/03/22 06/03/22 History Allergies Allergy/AdvReac Type Severity Reaction Status Date / Time Penicillins Allergy Unknown Rash/Hives Verified 06/03/22 09:13 adhesive AdvReac skin tears Verified 06/03/22 09:13 Physical Exam Vitals: Vital Signs Temp Pulse Pulse Resp BP BP Pulse Ox 06/03/22 11:11 80 16 152/75 98 06/03/22 08:13 85 12 06/03/22 08:00 97.9 F 85 12 148/74 06/03/22 07:37 85 06/03/22 03:57 98.0 F 85 18 160/70 99 06/03/22 02:00 84 18 06/02/22 23:55 84 18 06/02/22 23:34 97.9 F 84 18 153/81 99 06/02/22 23:06 82 14 145/74 97 06/02/22 21:00 79 18 140/75 96 06/02/22 19:34 81 20 132/62 96 06/02/22 16:40 97.7 F 80 22 114/62 97 Intake and Output 06/02/22 06/03/22 06/03/22 22:59 06:59 14:59 Intake Total 10 240 Output Total 225 Balance -215 240 Intake: IV 10 0.9 10 Oral 240 Output: Urine 225 Other: Voiding Method Urinal Bedpan Urinal # Bowel Movements 1 1 Weight 106.594 kg 106.594 kg Patient is comfortable awake, not in any acute distress Alert oriented 3 Examination of the heart S1 and S2 Decreased breath sounds at the bases Examination of the lower extremities shows edema 2-3+ bilaterally. Patient does not move his lower extremities Results - Lab Results Most recent lab results Calcium 9.7 mg/dL (8.4-10.2) 06/02/22 19:33 06/02/22 19:33 06/02/22 19:33 Assessment and Plan Assessment: 1. CK D stage IV to 5 secondary to nephrosclerosis with baseline creatinine around 3.5-4 mg/dL. Renal function is currently close to baseline. Patient will be doing PD down the road 2. Volume overload currently maintained on IV Lasix which we can continue 3. Recent diagnosis of breast cancer currently maintained on chemotherapy 4. Diarrhea associated with chemotherapy maintained on Questran 5. History of coronary artery disease status post coronary artery bypass mays rgery and coronary stent placement 6. Anemia multifactorial including underlying malignancy and chemotherapy and chronic kidney disease. No active bleeding noted Plan: Continue current dose of IV Lasix Check iron profile Check phosphorus Add Aranesp Repeat labs in a.m. Monitor urine output. Thank you for the consultation. We'll continue to follow the patient with you during his hospitalization
[2022-06-03 12:32] LABS: Phosphorus 2.1 mg/dL (2.5-4.5)
[2022-06-03] MEDS ORDERED: DARBEPOETIN ALFA 60 MCG/0.3 ML SYRINGE SQ SCH (13:00)
[2022-06-03 14:23] VITALS: BMI 32.8
[2022-06-03] MEDS: HYDROcodone/APAP 5-325MG 1 EACH TAB PO PRN (14:32)
[2022-06-03 16:49] LABS: Glucose,Whole Blood 217 mg/dL (70-110)
--- NOTE | 2022-06-03 17:50 | CA ---
Transthoracic Echo Report Name: Shahab Guzman Age: 71 Gender: M : 1950 Exam Date: 06/03/2022 13:21 Exam Location: [place] [facility] Ht (in): 62 Wt (lb): 235 Ordering Physician: Rea Coombs Attending/Referring Phys: Finish Remover Brenna Morgan RDCS Procedure CPT: Indications: cardiotoxic Mab therapy Cardiac Hx: Technical Quality: Fair Contrast 1: Total Dose (mL): Contrast 2: Total Dose (mL): MEASUREMENTS (Male / Female) Normal Values 2D ECHO LV Diastolic Diameter PLAX 4.7 cm 4.2 - 5.9 / 3.9 - 5.3 cm LV Systolic Diameter PLAX 2.3 cm IVS Diastolic Thickness 1.1 cm 0.6 - 1.0 / 0.6 - 0.9 cm LVPW Diastolic Thickness 1.6 cm 0.6 - 1.0 / 0.6 - 0.9 cm LV Relative Wall Thickness 0.6 RV Internal Dim ED PLAX 3.4 cm LA Systolic Diameter LX 4.5 cm 3.0 - 4.0 / 2.7 - 3.8 cm M-MODE Aortic Root Diameter MM 3.7 cm LA Systolic Diameter MM 4.4 cm LA Ao Ratio MM 1.2 MV E Point Septal Separation 0.7 cm AV Cusp Separation MM 1.2 cm DOPPLER AV Peak Velocity 263.6 cm/s AV Peak Gradient 27.8 mmHg AV Mean Velocity 180.3 cm/s AV Mean Gradient 16.2 mmHg AV Velocity Time Integral 53.4 cm LVOT Peak Velocity 132.6 cm/s LVOT Peak Gradient 7.0 mmHg MV Area PHT 3.3 cm??? Mitral E Point Velocity 140.7 cm/s Mitral A Point Velocity 75.2 cm/s Mitral E to A Ratio 1.9 MV Deceleration Time 232.0 ms FINDINGS Left Ventricle Left ventricular ejection fraction is estimated at 50-55%. Mildly increased left ventricular wall thickness. Right Ventricle Normal right ventricular size and function. Right ventricular systolic pressure within normal limits. Right Atrium Normal right atrial size. Left Atrium Mildly increased left atrial diameter. Moderately increased left atrial area. Mitral Valve Mitral valve thickened. Mild mitral regurgitation. Aortic Valve [id number] aortic stenosis with a peak gradient of 28 mmHg and a mean gradient of 16mmHg. Tricuspid Valve Structurally normal tricuspid valve. Pulmonic Valve Structurally normal pulmonic valve. Pericardium Normal pericardium. Aorta Normal size aortic root and proximal ascending aorta. CONCLUSIONS Normal LV systolic function with an ejection fraction of 55%. I aortic sclerosis with mild to moderate aortic stenosis Previewed by: Dr. Kadeem Ernst MD (Electronically Signed) Final Date: 03 June 2022 17:49
[2022-06-03 19:46] LABS: Glucose,Whole Blood 165 mg/dL (70-110)
--- NOTE | 2022-06-03 19:48 | P.CONS ---
History of Present Illness - Reason for Consult Consult date: 06/03/22 breast cancer Requesting physician: Nita Linn - Chief Complaint shortness of breath, swelling in the legs, diarrhea - History of Present Illness Mister Jamison is a pleasant male patient who was diagnosed and january of 2022 with right breast cancer. He had been having pain in the right breast for about 1 year, he reported to his PCP who referred him to surgery. He had a biopsy 01/23/22, grade 2 IDC ER/OR 100%/100%, HER-2 nu 2+ by IHC positive by fish. There was no family history of breast or ovarian cancers. Patient has a history of chronic kidney disease, benign brain tumor, wheelchair bound, also has a history of congestive heart failure. He was worked up in the past for macrocytic anemia, occasionally low WBC. He was found to have a very small and stable IgG monoclonal protein, never been treated. Patient has been on treatment and is status post 06/25 neoadjuvant Taxol, pertuzumab and trastuzumab infusions. breast mass is reducing in size. Patient is had trouble with diarrhea-this is a side effect of the treatment. He recently had treatment held 04/08 due to significant diarrhea. This resolved. He is currently admitted with complaints of progressive shortness of breath, swelling in the legs for the last 3 days. He is been experiencing diarrhea the entire time on treatment. He was using tablets than when he started Questran he became "bound up". He stopped that and is now back to having some diarrhea. He reports activity intolerance. He denies nausea, vomiting, chest pain, pleuritic type chest pain, dizziness, abdominal pain or cramping, dysuria, hematuria, no recent black or bloody stool, swelling in his legs is a little bit better since admission. He cannot ambulate but a few feet without becoming shortness of breath, he will even get short of breath with conversation. Review of Systems 10 point review of systems is negative except as stated in HPI Past Medical History Past Medical History: Atrial Fibrillation, Atrial Flutter, Coronary Artery Disease (CAD), Cancer, Diabetes Mellitus, Deep Vein Thrombosis (DVT), Eye Disorder, GERD/Reflux, Hyperlipidemia, Hypertension, Myocardial Infarction ([place]), Neurologic Disorder, Osteoarthritis (OA), Prostate Disorder, Sleep Apnea/CPAP/BIPAP Additional Past Medical History / Comment(s): Current right breast cancer. HX OF POLYPS, BLOOD IN STOOL, uti's. Hx tailbone fracture, neuropathy to feet. Blind in right eye. Hx encephalopathy, meningioma with left sided weakness, cannot use left leg, wheelcahir bound. PT CAN'T HAVE ANY VACCINES THAT ARE LIVE VIRUSES. PLEASE USE PAPER TAPE ONLY(PT HAS THIN SKIN). uses slide board at home to transfer pt to w/c, with 2 person assist pt can stand/pivot to chair. Last Myocardial Infarction Date:: 02-11-2005 History of Any Multi-Drug Resistant Organisms: None Reported Past Surgical History: Adenoidectomy, Cardiac Ablation, Cholecystectomy, Coronary Bypass/CABG, Heart Catheterization With Stent, Orthopedic Surgery, Tonsillectomy Additional Past Surgical History / Comment(s): Triple bypass, Meningioma Removed from Brain 04/2013, peg tube- removed 9 years ago, DESTINEY FILTER, BILATERAL CATARACTS- LENS IMPLANTS, COLONOSCOPY/POLYPECTOMY, RIGHT KNEE ARTHROSCOPY. Past Anesthesia/Blood Transfusion Reactions: No Reported Reaction Date of Last Stent Placement:: 2004 Past Psychological History: Depression Additional Psychological History / Comment(s): PT UNABLE TO AMBULATE BUT ABLE TO STAND WITH ASSIST OF 2 /PIVOT TO W/C OR MOTORIZED CHAIR. 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 Smoking Status: Never smoker Past Alcohol Use History: None Reported Past Drug Use History: None Reported - Past Family History Father History Unknown: Yes Family Medical History: Congestive Heart Failure (CHF) Mother History Unknown: Yes Additional Family Medical History / Comment(s): STILL ALIVE AT AGE 90 IN [facility] Medications and Allergies Home Medications Medication Instructions Recorded Confirmed Type Tamsulosin HCl [Flomax] 0.4 mg PO BID 06/19/15 06/03/22 History amLODIPine [Norvasc] 5 mg PO DAILY 07/09/16 06/03/22 History Apixaban [Eliquis] 5 mg PO BID 03/21/21 06/03/22 History Ferrous Sulfate [Iron (65 MG 325 mg PO DAILY 03/21/21 06/03/22 History Elemental)] INSULIN ASPART (NovoLOG) [NovoLOG 25 unit SQ AC-BID 03/21/21 06/03/22 History (formulary)] Pravastatin Sodium [Pravachol] 40 mg PO HS 03/21/21 06/03/22 History allopurinoL [Zyloprim] 100 mg PO DAILY 03/21/21 06/03/22 History hydrALAZINE HCL [Apresoline] 75 mg PO BID 03/21/21 06/03/22 History Cholecalciferol [Vitamin D3 (25 25 mcg PO DAILY 01/13/22 06/03/22 History Mcg = 1000 Iu)] Amiodarone [Cordarone] 100 mg PO DAILY 02/07/22 06/03/22 History Folic Acid 0.8 mg PO DAILY 02/07/22 06/03/22 History Furosemide [Lasix] 80 mg PO DAILY 02/07/22 06/03/22 History Metoprolol Succinate (ER) [Toprol 25 mg PO DAILY 02/07/22 06/03/22 History XL] Cholestyramine (with Sugar) 4 gm PO BID 06/03/22 06/03/22 History [Questran] Diphenoxylate HCl/Atropine 1 tab PO DAILY 06/03/22 06/03/22 History [Lomotil 2.5-0.025 mg Tablet] Insulin Glargine,Hum.rec.anlog 36 units SQ HS 06/03/22 06/03/22 History [Lantus Solostar Pen] Lidocaine-Prilocaine Cream [Emla 1 applic TOPICAL DAILY PRN 06/03/22 06/03/22 History Cream 2.5%/2.5%] calcitrioL [Calcitriol] 0.25 mcg PO MO 06/03/22 06/03/22 History Allergies Allergy/AdvReac Type Severity Reaction Status Date / Time Penicillins Allergy Unknown Rash/Hives Verified 06/03/22 09:13 adhesive AdvReac skin tears Verified 06/03/22 09:13 Physical Exam Vitals: Vital Signs Temp Pulse Pulse Resp BP BP Pulse Ox 06/03/22 15:03 98.2 F 78 18 120/57 97 06/03/22 14:00 77 06/03/22 12:10 98.0 F 77 14 127/71 06/03/22 11:11 80 16 152/75 98 06/03/22 08:13 85 12 06/03/22 08:00 97.9 F 85 12 148/74 06/03/22 07:37 85 06/03/22 03:57 98.0 F 85 18 160/70 99 06/03/22 02:00 84 18 06/02/22 23:55 84 18 06/02/22 23:34 97.9 F 84 18 153/81 99 06/02/22 23:06 82 14 145/74 97 06/02/22 21:00 79 18 140/75 96 06/02/22 19:34 81 20 132/62 96 Intake and Output 06/03/22 06/03/22 06/03/22 06:59 14:59 22:59 Intake Total 10 240 240 Output Total 225 500 Balance -215 -260 240 Intake: IV 10 0.9 10 Oral 240 240 Output: Urine 225 500 Other: Voiding Method Urinal Bedpan Urinal # Bowel Movements 1 1 Weight 106.594 kg 106.594 kg - Constitutional General appearance: cooperative, no acute distress, obese - EENT Eyes: anicteric sclerae, EOMI ENT: hearing grossly normal, normal oropharynx - Neck Neck: no lymphadenopathy - Respiratory Respiratory: right: other (absent breath sounds), left: rales - Cardiovascular Rhythm: regular Heart sounds: normal: S1, S2 Abnormal Heart Sounds: systolic murmur leg Peripheral Edema: bilateral: 2+ - Gastrointestinal General gastrointestinal: no absent bowel sounds, no decreased bowel sounds, no distended, no hepatomegaly, no hyperactive bowel sounds, normal bowel sounds, no organomegaly, no rigid, no scaphoid, soft, no splenomegaly, no tenderness, no umbilical hernia, no ventral hernia - Integumentary Integumentary: normal - Neurologic Neurologic: CNII-XII intact - Musculoskeletal Musculoskeletal: generalized weakness, strength equal bilaterally - Psychiatric Psychiatric: A&O x's 3, appropriate affect, intact judgment & insight Results CBC & Chem 7: 06/02/22 19:33 06/02/22 19:33 Labs: Abnormal Lab Results - Last 24 Hours (Table) 06/02/22 06/02/22 06/02/22 Range/Units 19:33 19:33 23:37 WBC 3.3 L (3.8-10.6) k/uL RBC 2.13 L (4.30-5.90) m/uL Hgb 7.0 L (13.0-17.5) gm/dL Hct 21.6 L (39.0-53.0) % MCV 101.4 H (80.0-100.0) fL RDW 19.3 H (11.5-15.5) % Lymphocytes # 0.3 L (1.0-4.8) k/uL Chloride 108 H (98-107) mmol/L Carbon Dioxide 20 L (22-30) mmol/L BUN 38 H (9-20) mg/dL Creatinine 3.20 H (0.66-1.25) mg/dL Glucose 216 H (74-99) mg/dL POC Glucose (mg/dL) 249 H (70-110) mg/dL Phosphorus (2.5-4.5) mg/dL Total Protein 5.5 L (6.3-8.2) g/dL 06/03/22 06/03/22 06/03/22 Range/Units 01:09 06:20 11:44 WBC (3.8-10.6) k/uL RBC (4.30-5.90) m/uL Hgb (13.0-17.5) gm/dL Hct (39.0-53.0) % MCV (80.0-100.0) fL RDW (11.5-15.5) % Lymphocytes # (1.0-4.8) k/uL Chloride (98-107) mmol/L Carbon Dioxide (22-30) mmol/L BUN (9-20) mg/dL Creatinine (0.66-1.25) mg/dL Glucose (74-99) mg/dL POC Glucose (mg/dL) 165 H 192 H (70-110) mg/dL Phosphorus 2.1 L (2.5-4.5) mg/dL Total Protein (6.3-8.2) g/dL 06/03/22 Range/Units 16:48 WBC (3.8-10.6) k/uL RBC (4.30-5.90) m/uL Hgb (13.0-17.5) gm/dL Hct (39.0-53.0) % MCV (80.0-100.0) fL RDW (11.5-15.5) % Lymphocytes # (1.0-4.8) k/uL Chloride (98-107) mmol/L Carbon Dioxide (22-30) mmol/L BUN (9-20) mg/dL Creatinine (0.66-1.25) mg/dL Glucose (74-99) mg/dL POC Glucose (mg/dL) 217 H (70-110) mg/dL Phosphorus (2.5-4.5) mg/dL Total Protein (6.3-8.2) g/dL Comments: echo report reviewed-LVEF 55% Assessment and Plan (1) Heart failure Current Visit: Yes Status: Acute Code(s): I50.9 - HEART FAILURE, UNSPECIFIED SNOMED Code(s): 82872810 (2) Cancer of right male breast Current Visit: No Status: Acute Code(s): C50.921 - MALIGNANT NEOPLASM OF UNSPECIFIED SITE OF RIGHT MALE BREAST SNOMED Code(s): 679493549 Plan: ECHO ordered as patient has been on cardiotoxic treatment. If this is negative may consider CT of the chest to rule out drug induced pneumonitis. Antidiarrheals ordered PRN. Patient does not want Questran. Electrolytes are within normal limits, continue supplements. Patient has a history of chronic kidney disease. Patient's creatinine is within normal limits for him. Nephrology consulted. attests: I have seen and examined patient, performed H&P, developed impression and plan of care. Discussed with dictator. Agree with documentation, dictated as a scribe.
[2022-06-03] MEDS ORDERED: DIPHENOX-ATROP 2.5-0.025 MG 1 EACH TAB PO PRN (19:49)
[2022-06-03] MEDS: INSULIN DETEMIR (LEVEMIR) 100 UNIT/ML SYR SQ SCH (20:17)
[2022-06-03] MEDS: PRAVASTATIN SODIUM 40 MG TAB PO SCH (20:18)
[2022-06-03] MEDS: MELATONIN 3 MG TABLET PO SCH (20:18)
[2022-06-03] MEDS: hydrALAZINE HCL 25 MG TAB PO SCH (20:18)
[2022-06-03 20:19] LABS: % Iron Saturation 8.37 (15.00-50.00)
[2022-06-03] MEDS ORDERED: APIXABAN 5 MG TAB PO SCH (21:00)
[2022-06-03] MEDS ORDERED: INSULIN DETEMIR (LEVEMIR) 100 UNIT/ML SYR SQ SCH (21:00)
[2022-06-04 06:06] LABS: Glucose,Whole Blood 116 mg/dL (70-110)
[2022-06-04] MEDS: INSULIN ASPART (NovoLOG) 100 UNIT/ML VIAL SQ SCH ×6 (06:12→21:02)
[2022-06-04] MEDS: TAMSULOSIN 0.4 MG CAP.ER.24H PO SCH ×2 (09:01→21:01)
[2022-06-04] MEDS: DIPHENOX-ATROP 2.5-0.025 MG 1 EACH TAB PO SCH (09:01)
[2022-06-04] MEDS: allopurinoL 100 MG TAB PO SCH (09:02)
[2022-06-04] MEDS: FERROUS SULFATE 325 MG TAB PO SCH (09:02)
[2022-06-04] MEDS: FAMOTIDINE 20 MG TAB PO SCH (09:02)
[2022-06-04] MEDS: CHOLECALCIFEROL 25 MCG (1000 IU) TABLET PO SCH (09:02)
[2022-06-04] MEDS: APIXABAN 5 MG TAB PO SCH (09:02)
[2022-06-04] MEDS: POTASSIUM CHLORIDE ER 20 MEQ TAB.ER PO SCH (09:02)
[2022-06-04] MEDS: FOLIC ACID 1 MG TAB PO SCH (09:02)
[2022-06-04] MEDS: FUROSEMIDE 10 MG/ML 4 ML VIAL IV SCH ×2 (09:07→21:01)
[2022-06-04 09:13] LABS: Albumin 2.9 g/dL (3.5-5.0); Calcium 9.2 mg/dL (8.4-10.2); Potassium 3.1 mmol/L (3.5-5.1); Total Bilirubin 0.3 mg/dL (0.2-1.3); Total Protein 4.7 g/dL (6.3-8.2)
[2022-06-04 09:29] LABS: Anisocytosis Slight; Basophils % (A) 1 %; Eosinophils % (A) 1 %; Hypochromasia Moderate; Lymphocytes # (A) 0.3 k/uL (1.0-4.8); Lymphocytes % (A) 10 %; MCH 33.2 pg (25.0-35.0); MCHC 32.5 g/dL (31.0-37.0); MCV 102.1 fL (80.0-100.0); Macrocytosis Moderate; Mean Platelet Volume 7.6; Monocytes # (A) 0.3 k/uL (0-1.0); Monocytes % (A) 10 %; Neutrophils # (A) 2.2 k/uL (1.3-7.7); Neutrophils % (A) 76 %; Platelet Count 277 k/uL (150-450); Poikilocytosis Moderate; RBC 1.85 m/uL (4.30-5.90); RDW 19.3 % (11.5-15.5); WBC 2.9 k/uL (3.8-10.6)
--- NOTE | 2022-06-04 09:37 | P.PN ---
Subjective Progress Note Date: 06/04/22 HISTORY OF PRESENT ILLNESS: This is a 71-year-old male with a past medical history significant for paroxysmal atrial fibrillation with previous ablation, coronary artery disease with three-vessel CABG in 2004, sick sinus syndrome, breast cancer on chemotherapy, hypertension, diabetes, and chronic kidney disease. Patient follows in the office with Dr. Turcios. We have been asked to see the patient in consultation for congestive heart failure. Patient examined at the bedside. Iron beltran reports she has been feeling short of breath for the past 4 days. He also reports some lower extremity edema. He denies any chest pain or pressure. He states he received his chemotherapy treatment about a week ago and has not been feeling very well since that time. The patient states he is taking his Eliquis 5 mg at night only because he cannot afford to take his Eliquis twice a day. Dis cussed importance of taking his Eliquis BID at home. * Telemetry reveals atrial fibrillation with controlled ventricular rate * Chest xray right pleural effusion with associated atelectasis. Mild car diomegaly. * Laboratory data: WBC 3.3. Hemoglobin 7.0. Platelet count 310. Sodium 141. Potassium 3.5. BUN 38. Creatinine 3.2. Troponin negative 3. ProBNP 1120. * Current home cardiac medications include Eliquis 5mg BID, amiodarone 100 mg daily, Lasix 80 mg daily, metoprolol succinate 25 mg daily, Pravachol 40 mg at night, Norvasc 5 mg daily, and hydralazine 75 mg twice a day * Most recent echocardiogram obtained in March 2021 revealed ejection fraction 50-55%, apical inferior and apical septal LV wall hypokinesis, mild aortic stenosis, mild MR, mild TR 06/04/2022 Patient examined this morning at the bedside. Patient denies chest pain or pressure. He denies shortness of breath. He continues to have lower extremity edema, although improving. He remains on IV Lasix 40 mg every 8 hours. Creatinine today 3.55. Nephrology is following. Echocardiogram completed revealing ejection fraction 55% with mild to moderate aortic stenosis. PHYSICAL EXAM: VITAL SIGNS: Reviewed. GENERAL: Well-developed in no acute distress. HEENT: Head is normocephalic. Pupils are equal, round. Sclerae anicteric. Mucous membranes of the mouth are moist. Neck supple. No JVD or thyromegaly LUNGS: Respirations even and unlabored. Lungs diminished to auscultation bilaterally. HEART: Irregular rate and rhythm. S1 and S2 heard. Systolic murmur noted ABDOMEN: Soft. Nondistended. Nontender. EXTREMITIES: Normal range of motion. No clubbing or cyanosis. Peripheral pulses intact. 1+ bilateral lower extremity edema NEUROLOGIC: Awake and alert. Oriented x 3. ASSESSMENT: Shortness of breath Acute on chronic heart failure with preserved ejection fraction Chronic kidney disease Paroxysmal atrial fibrillation Coronary artery disease with previous three-vessel CABG History of atrial fibrillation ablation History of breast cancer on chemotherapy Hypertension Hyperlipidemia Diabetes PLAN: Continue current cardiac medications Decrease Lasix to 40 mg every 12 hours Monitor kidney function Further recommendations pending patient course Nurse practitioner note has been reviewed by physician. Signing provider agrees with the documented findings, assessment, and plan of care. Objective - Vital Signs Vital signs: Vital Signs Temp 97.7 F 06/04/22 04:00 Pulse 75 06/04/22 04:00 Resp 18 06/04/22 04:00 BP 123/59 06/04/22 04:00 Pulse Ox 100 06/04/22 04:00 FiO2 Intake & Output 06/03/22 06/04/22 06/04/22 18:59 06:59 18:59 Intake Total 480 180 Output Total 500 1 200 - Weight 106.594 kg Intake: Oral 480 180 Output: Urine 500 200 Urine/Stool Mix 1 Other: Voiding Method Bedpan Bedpan Urinal Urinal # Voids 1 # Bowel Movements 1 2 1 - Labs CBC & Chem 7: 06/02/22 19:33 06/04/22 08:32 Labs: Abnormal Lab Results - Last 24 Hours (Table) 06/03/22 06/03/22 06/03/22 Range/Units 01:09 11:44 16:48 Potassium (3.5-5.1) mmol/L Chloride (98-107) mmol/L BUN (9-20) mg/dL Creatinine (0.66-1.25) mg/dL Glucose (74-99) mg/dL POC Glucose (mg/dL) 192 H 217 H (70-110) mg/dL Phosphorus 2.1 L (2.5-4.5) mg/dL Iron 27 L (65-175) ug/dL % Saturation 8.37 L (15.00-50.00) AST (17-59) U/L Total Protein (6.3-8.2) g/dL Albumin (3.5-5.0) g/dL 06/03/22 06/04/22 06/04/22 Range/Units 19:43 06:04 08:32 Potassium 3.1 L (3.5-5.1) mmol/L Chloride 108 H (98-107) mmol/L BUN 39 H (9-20) mg/dL Creatinine 3.55 H (0.66-1.25) mg/dL Glucose 104 H (74-99) mg/dL POC Glucose (mg/dL) 165 H 116 H (70-110) mg/dL Phosphorus (2.5-4.5) mg/dL Iron (65-175) ug/dL % Saturation (15.00-50.00) AST 15 L (17-59) U/L Total Protein 4.7 L (6.3-8.2) g/dL Albumin 2.9 L (3.5-5.0) g/dL
[2022-06-04 09:38] LABS: HCT 18.9 % (39.0-53.0); HGB 6.1 gm/dL (13.0-17.5)
[2022-06-04 12:11] LABS: Glucose,Whole Blood 139 mg/dL (70-110)
[2022-06-04] MEDS: AMIODARONE 100 MG TAB PO SCH (12:39)
[2022-06-04] MEDS: hydrALAZINE HCL 25 MG TAB PO SCH ×2 (12:39→21:01)
[2022-06-04] MEDS: METOPROLOL SUCCINATE (ER) 25 MG TAB.ER.24H PO SCH (12:39)
[2022-06-04] MEDS: amLODIPine 5 MG TAB PO SCH (12:39)
--- NOTE | 2022-06-04 15:32 | P.PN ---
Subjective Progress Note Date: 06/04/22 Principal diagnosis: dyspnea on exertion, in treatment for male breast cancer In follow-up today patient is reporting improvement in his breathing, he can speak today without becoming short of breath, in general he does feel a little bit better. No fevers, diarrhea is stable. Objective - Vital Signs Vital signs: Vital Signs Temp 97.6 F 06/04/22 13:08 Pulse 74 06/04/22 13:08 Resp 18 06/04/22 14:00 BP 121/69 06/04/22 13:08 Pulse Ox 97 06/04/22 13:08 FiO2 Intake & Output 06/03/22 06/04/22 06/04/22 18:59 06:59 18:59 Intake Total 480 180 Output Total 500 1 200 Balance - Weight 106.594 kg Intake: Oral 480 180 Blood Product 0 Unit 0 Output: Urine 500 200 Urine/Stool Mix 1 Other: Voiding Method Bedpan Bedpan Bedpan Urinal Urinal Urinal # Voids 1 # Bowel Movements 1 2 1 - Constitutional General appearance: Present: cooperative, no acute distress, obese - EENT Eyes: Present: anicteric sclerae, EOMI ENT: Present: hearing grossly normal - Respiratory Respiratory: bilateral: rales (bibasilar) - Cardiovascular Rhythm: regular Heart sounds: normal: S1, S2 Abnormal Heart Sounds: Present: systolic murmur (less notable today) - Peripheral edema leg Peripheral Edema: bilateral: Trace - Gastrointestinal General gastrointestinal: Present: normal bowel sounds, soft - Integumentary Integumentary: Present: normal - Neurologic Neurologic: Present: CNII-XII intact (grossly) - Musculoskeletal Musculoskeletal: Present: generalized weakness - Psychiatric Psychiatric: Present: A&O x's 3, appropriate affect, intact judgment & insight - Labs CBC & Chem 7: 06/04/22 08:32 06/04/22 08:32 Labs: Abnormal Lab Results - Last 24 Hours (Table) 06/03/22 06/03/22 06/03/22 Range/Units 01:09 16:48 19:43 WBC (3.8-10.6) k/uL RBC (4.30-5.90) m/uL Hgb (13.0-17.5) gm/dL Hct (39.0-53.0) % MCV (80.0-100.0) fL RDW (11.5-15.5) % Lymphocytes # (1.0-4.8) k/uL Potassium (3.5-5.1) mmol/L Chloride (98-107) mmol/L BUN (9-20) mg/dL Creatinine (0.66-1.25) mg/dL Glucose (74-99) mg/dL POC Glucose (mg/dL) 217 H 165 H (70-110) mg/dL Iron 27 L (65-175) ug/dL % Saturation 8.37 L (15.00-50.00) AST (17-59) U/L Total Protein (6.3-8.2) g/dL Albumin (3.5-5.0) g/dL Crossmatch 06/04/22 06/04/22 06/04/22 Range/Units 06:04 08:32 08:32 WBC 2.9 L (3.8-10.6) k/uL RBC 1.85 L (4.30-5.90) m/uL Hgb 6.1 L* (13.0-17.5) gm/dL Hct 18.9 L* (39.0-53.0) % MCV 102.1 H (80.0-100.0) fL RDW 19.3 H (11.5-15.5) % Lymphocytes # 0.3 L (1.0-4.8) k/uL Potassium 3.1 L (3.5-5.1) mmol/L Chloride 108 H (98-107) mmol/L BUN 39 H (9-20) mg/dL Creatinine 3.55 H (0.66-1.25) mg/dL Glucose 104 H (74-99) mg/dL POC Glucose (mg/dL) 116 H (70-110) mg/dL Iron (65-175) ug/dL % Saturation (15.00-50.00) AST 15 L (17-59) U/L Total Protein 4.7 L (6.3-8.2) g/dL Albumin 2.9 L (3.5-5.0) g/dL Crossmatch 06/04/22 06/04/22 Range/Units 10:59 11:54 WBC (3.8-10.6) k/uL RBC (4.30-5.90) m/uL Hgb (13.0-17.5) gm/dL Hct (39.0-53.0) % MCV (80.0-100.0) fL RDW (11.5-15.5) % Lymphocytes # (1.0-4.8) k/uL Potassium (3.5-5.1) mmol/L Chloride (98-107) mmol/L BUN (9-20) mg/dL Creatinine (0.66-1.25) mg/dL Glucose (74-99) mg/dL POC Glucose (mg/dL) 139 H (70-110) mg/dL Iron (65-175) ug/dL % Saturation (15.00-50.00) AST (17-59) U/L Total Protein (6.3-8.2) g/dL Albumin (3.5-5.0) g/dL Crossmatch See Detail - Imaging and Cardiology echo report reviewed-LVEF 55% Assessment and Plan (1) Heart failure Current Visit: Yes Status: Acute Code(s): I50.9 - HEART FAILURE, UNSPECIFIED SNOMED Code(s): 97567878 (2) Cancer of right male breast Current Visit: No Status: Acute Code(s): C50.921 - MALIGNANT NEOPLASM OF UNSPECIFIED SITE OF RIGHT MALE BREAST SNOMED Code(s): 700994009 Plan: ECHO revealed LVEF 55%. Cardiology has assessed the patient. Patient has received Lasix, no wt changes. He has been seen by Nephrology for chronic kidney disease. Swelling in his legs is stable, slight improvement. Breathing is notably better today. Negative findings with Cardiac work up. High resolution CT of the chest to rule out drug induced pneumonitis. Antidiarrheals ordered sched QD and PRN Q 6 hours. Patient does not want Questran. Electrolytes slightly abnormal today, continue supplements, cont to monitor. Patient has a history of chronic kidney disease. Patient's creatinine is within normal limits for him. Nephrology consulted. Pt did receive his Epo injection. He was given IV iron about 5 weeks ago, recheck of iron studies shows low saturation. IV iron ordered-iron saturation has to be actively supplemented for Epo injections. attests: I have seen and examined patient, performed H&P, developed impression and plan of care. Discussed with dictator. Agree with docume ntation, dictated as a scribe.
--- NOTE | 2022-06-04 15:32 | US ---
EXAMINATION TYPE: US kidneys/renal and bladder DATE OF EXAM: 06/04/2022 COMPARISON: US & CT CLINICAL HISTORY: pk. PK EXAM MEASUREMENTS: Right Kidney: 11.0 x 5.1 x 4.7 cm Left Kidney: 10.4 x 4.9 x 5.0 cm Right Kidney: Vague lobulation vs mass mid= 2.1 x 1.9 x 2.0 cm Left Kidney: No evidence of hydro, very limited views due to pt morbid obesity and immobility Bladder: Irregular wall Bilateral Jets seen: No IMPRESSION: 1. Mild hypodensity within the mid to upper pole right kidney estimated at approximately 2 cm. Additi onal workup with contrast CT is recommended. 2. There may be some urinary bladder wall thickening. Additional workup is recommended.
[2022-06-04] MEDS: SODIUM FERRIC GLUCONAT-SUCROSE 125 MG in SODIUM CHLORIDE 0.9% 100 ML IVPB SCH (16:40)
--- NOTE | 2022-06-04 16:48 | P.PN ---
Subjective Patient is seen for f/u for PK on top of CKD. Admitted to the hospital with c/o diarrhea. Patient also had increased swelling lower extremities and is maintained on IV lasix. Hemoglobin at 6.1 g/dL today Cr at 3.5 from 3.2 yesterday. Lasix decreased to q 12 hrs today. Objective - Vital Signs Vital signs: Vital Signs Temp 97.9 F 06/04/22 16:26 Pulse 67 06/04/22 16:26 Resp 18 06/04/22 16:26 BP 124/67 06/04/22 16:26 Pulse Ox 97 06/04/22 13:08 FiO2 Intake & Output 06/03/22 06/04/22 06/04/22 18:59 06:59 18:59 Intake Total 480 490 Output Total 500 1 200 Balance -20 290 Weight 106.594 kg Intake: Oral 480 180 Blood Product 310 Rc As-1 Unit 310 [id number] Output: Urine 500 200 Urine/Stool Mix 1 Other: Voiding Method Bedpan Bedpan Bedpan Urinal Urinal Urinal # Voids 1 # Bowel Movements 1 2 1 - Exam Patient is awake, comfortable, not in acute distress. Alert and oriented x3. Lungs are clear with decreased breath sounds at bases CVS S1 and S2 Abdomen is soft, non tender Extremities show 1+ edema right leg and 2+ left leg. PLATE MOUNTER exam is grossly intact. - Labs CBC & Chem 7: 06/04/22 08:32 06/04/22 08:32 Labs: Abnormal Lab Results - Last 24 Hours (Table) 06/03/22 06/03/22 06/03/22 Range/Units 01:09 16:48 19:43 WBC (3.8-10.6) k/uL RBC (4.30-5.90) m/uL Hgb (13.0-17.5) gm/dL Hct (39.0-53.0) % MCV (80.0-100.0) fL RDW (11.5-15.5) % Lymphocytes # (1.0-4.8) k/uL Potassium (3.5-5.1) mmol/L Chloride (98-107) mmol/L BUN (9-20) mg/dL Creatinine (0.66-1.25) mg/dL Glucose (74-99) mg/dL POC Glucose (mg/dL) 217 H 165 H (70-110) mg/dL Iron 27 L (65-175) ug/dL % Saturation 8.37 L (15.00-50.00) AST (17-59) U/L Total Protein (6.3-8.2) g/dL Albumin (3.5-5.0) g/dL Crossmatch 06/04/22 06/04/22 06/04/22 Range/Units 06:04 08:32 08:32 WBC 2.9 L (3.8-10.6) k/uL RBC 1.85 L (4.30-5.90) m/uL Hgb 6.1 L* (13.0-17.5) gm/dL Hct 18.9 L* (39.0-53.0) % MCV 102.1 H (80.0-100.0) fL RDW 19.3 H (11.5-15.5) % Lymphocytes # 0.3 L (1.0-4.8) k/uL Potassium 3.1 L (3.5-5.1) mmol/L Chloride 108 H (98-107) mmol/L BUN 39 H (9-20) mg/dL Creatinine 3.55 H (0.66-1.25) mg/dL Glucose 104 H (74-99) mg/dL POC Glucose (mg/dL) 116 H (70-110) mg/dL Iron (65-175) ug/dL % Saturation (15.00-50.00) AST 15 L (17-59) U/L Total Protein 4.7 L (6.3-8.2) g/dL Albumin 2.9 L (3.5-5.0) g/dL Crossmatch 06/04/22 06/04/22 Range/Units 10:59 11:54 WBC (3.8-10.6) k/uL RBC (4.30-5.90) m/uL Hgb (13.0-17.5) gm/dL Hct (39.0-53.0) % MCV (80.0-100.0) fL RDW (11.5-15.5) % Lymphocytes # (1.0-4.8) k/uL Potassium (3.5-5.1) mmol/L Chloride (98-107) mmol/L BUN (9-20) mg/dL Creatinine (0.66-1.25) mg/dL Glucose (74-99) mg/dL POC Glucose (mg/dL) 139 H (70-110) mg/dL Iron (65-175) ug/dL % Saturation (15.00-50.00) AST (17-59) U/L Total Protein (6.3-8.2) g/dL Albumin (3.5-5.0) g/dL Crossmatch See Detail Assessment and Plan Assessment: 1. CK D stage IV to 5 secondary to nephrosclerosis with baseline creatinine around 3.5-4 mg/dL. Renal function is currently close to baseline. Patient will be doing PD down the road 2. Volume overload currently maintained on IV Lasix which we can continue, dose is decreased. 3. Recent diagnosis of breast cancer currently maintained on chemotherapy 4. Diarrhea associated with chemotherapy maintained on Questran, improved 5. History of coronary artery disease status post coronary artery bypass surgery and coronary stent placement 6. Anemia multifactorial including underlying malignancy and chemotherapy and chronic kidney disease. No active bleeding noted Plan: Continue with decreased dose of IV Lasix Repeat labs in am Conitnue flomax
[2022-06-04 17:01] LABS: Glucose,Whole Blood 203 mg/dL (70-110)
[2022-06-04] MEDS: HYDROcodone/APAP 5-325MG 1 EACH TAB PO PRN (18:44)
--- NOTE | 2022-06-04 19:46 | CT ---
EXAMINATION TYPE: CT chest wo con CT DLP: 713.8 mGycm, Automated exposure control for dose reduction was used. DATE OF EXAM: 06/04/2022 5:42 PM COMPARISON: PET/CT 02/21/2022 chest radiograph 06/02/2022. CLINICAL INDICATION:Male, 71 years old with history of symptoms suspicious for pneumonitis, CHF ruled out; SOB TECHNIQUE: Multiple axial images were obtained through the chest. Sagittal and coronal reformats were created for review. Contrast used: , none. Oral contrast used: none. FINDINGS: LUNGS/ PLEURA: There is split pleural sign in the right. Trace left pleural effusion right lower lobe consolidation changes with air bronchograms in some areas. Bilateral consolidation changes are simil ar prior PET/CT. Intralobular septal thickening on the right. AIRWAY: Patent and unremarkable. HEART: Size within normal limits. Moderate severe coronary artery atherosclerosis with post CABG zavala ges. MEDIASTINUM: No gross evidence of adenopathy. VASCULATURE: No aortic aneurysm. The pulmonary trunk is dilated measuring up to 4.0 cm. Right Infuse -a-Port central venous catheter with distal tip terminating in the superior vena cava. MUSCULOSKELETAL: No acute osseous abnormalities SOFT TISSUES/LYMPH NODES: Gynecomastia changes bilaterally. LOWER NECK: No significant findings. UPPER ABDOMEN: The gallbladder surgically absent. IMPRESSION: 1. Right empyema which is similar to prior PET/CT scan 02/21/2022. 2. Consolidation changes within the right lung base felt to be similar to prior PET/CT and 02/21/2022 . 3. Trace left pleural effusion. 4. Pulmonary hypertension. 5. Cardiomegaly with post CABG changes. 6. Mild dominantly right-sided pulmonary vascular congestion.
[2022-06-04 20:18] LABS: Glucose,Whole Blood 156 mg/dL (70-110)
[2022-06-04] MEDS: MELATONIN 3 MG TABLET PO SCH (21:01)
[2022-06-04] MEDS: PRAVASTATIN SODIUM 40 MG TAB PO SCH (21:01)
[2022-06-04] MEDS: INSULIN DETEMIR (LEVEMIR) 100 UNIT/ML SYR SQ SCH (21:01)
[2022-06-05 07:48] LABS: Glucose,Whole Blood 119 mg/dL (70-110)
--- NOTE | 2022-06-05 07:49 | P.PN ---
Subjective Progress Note Date: 06/04/22 HISTORY OF PRESENT ILLNESS: This is a 71-year-old male with a previous medical history significant for hy pertension and hypertensive cardiovascular disease with left ventricular hypertrophy, hyperlipidemia, diabetes mellitus type 2, with diabetic polyneuropathy, history of coronary artery disease status post coronary artery bypass graft x3 followed by stent, history of atrial fibrillation status post a blation on long-term eliquis, history of meningioma status post resection back in April 2013 with left-sided weakness, history of chronic kidney disease stage IV currently under the care of nephrology with plan for CAPD at later date, history of anemia of chronic kidney disease, history of secondary hyperparathyroidism. Patient also has history of newly diagnosed breast cancer on the right side status post biopsy which revealed invasive moderately differentiated ductal carcinoma status post chemotherapy 10 treatments out of 12 completed as of one week ago today. Plan is for radiation therapy following and then surgical intervention. Patient is complaining of diarrhea which she states does not stop. He is on Questran and Lomotil. He states yesterday it was significantly worse. He states the diarrhea is watery and he has incontinence. Patient also developed edema to the lower extremities left greater than right for the past week along with shortness of breath and orthopnea. Regarding renal failure, patient follows with Dr. Campos and there is plan for CAPD once his cancer treatment is completed. He is making urine. Patient does complain of difficulty sleeping. Patient came into [facility] emergency center for evaluation. He was found to be afebrile, heart rate 80, blood pressure 114/62, pulse ox 97% on room air. WBC 3.3, hemoglobin 7, platelet count 310. INR 1.1. Sodium 141, potassium 3.5, chloride 108, CO2 20, BUN 38 creatinine 3.2. Glucose 216. Liver function tests normal. Troponin negative on 3 draws. Albumin 3.5. ProBNP 1120. Chest x-ray reveals right pleural effusion with associated atelectasis. Overall not significant change from 03/03/2022. Mild cardiomegaly. [id number] within the superior vena cava. Patient was admitted to the cardiac stepdown unit and cardiology consult and nephrology consult ordered. Will add in consult for oncology, patient's oncologist is Dr. Cameron. He has been started on Lasix 40 mg IV push every 8 hours. 06/04: Patient has been seen by cardiology and echocardiogram was resumed on home medications and continued on IV Lasix but decreased frequency today at every 12 hours. Nephrology is recommended iron studies, added Aranesp and check phosphorus level monitor urine output. Patient has been seen by oncology and may consider CAT scan of the chest to rule out drug-induced pneumonitis. Patient has been afebrile, heart rate 75, blood pressure 123/59, pulse ox 97% on room air, patient utilize CPAP at night. Capillary blood glucose running between 116 and 217. Phosphorus 2.1. Iron 27, TIBC 326, iron saturation 8.37%, transferrin 233. WBC 2.9, hemoglobin 6.1, platelet count 277. Sodium 140, potassium 3.1, chloride 108, CO2 23, BUN 39 and creatinine 3.55. Potassium replaced and patient ordered for 1 unit of packed RBCs. Patient states that his breathing is better from yesterday. He denies any cough or sputum production. Patient's states that he has had black stools for some time. Discuss possibility of adding Dr. Valdes for further evaluation of GI bleed but will hold off now and recheck hemoglobin in the morning. Echocardiogram reveals EF of 50-55%, mildly increased left ventricular wall thickness. Mild mitral regurgitation, mild to moderate aortic stenosis with pe ak gradient of 28 mmHg and mean gradient of 16 mmHg REVIEW OF SYSTEMS: Constitutional: No documented fever, no chills, no night sweats. No weight change. positive for weakness, fatigue or lethargy. No daytime sleepiness. HEENT: No headache. No blurred vision or double vision, no loss of vision. No loss of Hearing, no ringing in the ears, no dizziness. No nasal drainage or congestion. No epistaxis. No sore throat. Lungs: positive for shortness of breath, no cough, no sputum production. No wheezing. Reports dyspnea with activity. Cardiovascular: No chest pain, reports lower extremity edema. No palpitations. No paroxysmal nocturnal dyspnea. Reports orthopnea. No lightheadedness or dizziness. No syncopal episodes. Abdominal: Reports no abdominal pain. No nausea, vomiting. Reports diarrhea. No constipation. Reported bloody or tarry stools reports loss of appetite. Genitourinary: No dysuria, increased frequency, urgency. No urinary retention. Musculoskeletal: No myalgias. positive for chronic left sided weakness, positive for gait dysfunction, no frequent falls. positive for back pain. positive for neck pain. Integumentary: No wounds, no lesions. No rash or pruritus. No unusual bruising. No change in hair or nails. Neurologic: No aphasia. No facial droop. No change in mentation. No head injury. No headache, positive for left sided weakness and left foot drop. Psychiatric: positive for depression. No anxiety. No mood swings. Endocrine: No abnormal blood sugars. No weight change. PHYSICAL EXAMINATION: General: this is a 71-year-old male who is sitting up in bed appears to be in no respiratory distress at rest. Patient's is at bedside. HEENT: Head is atraumatic, normocephalic, pupils were equal round reactive to light and recommendation, extraocular muscle movement were intact, sclera nonicteric, conjunctivae were pale, mucous membranes of the mouth are somewhat dry. Neck: Supple, no JVP, normal carotid upstroke bilaterally, no lymphadenopathy. Chest: Decreased breath sounds at the bases with decreased tactile fremitus, few rhonchi, no expiratory wheezes, no chest wall tenderness, no intercostal retractions. Heart: First heart sound is normal, second heart sounds normal, irregularly irregular, there is systolic initial murmur 2/6 located in the left sternal border. Abdomen: Soft, nontender, nondistended, positive bowel sounds. No epigastric tenderness. Extremities: There is +1 edema to the bilateral lower extremities left greater than right no calf tenderness DP +2 bilaterally. Neurologic examination: Patient is awake alert and oriented X3 , cranial nerves II-12 appear grossly intact, there is left-sided weakness with left foot drop. ASSESSMENT AND PLAN: 1. Acute diastolic heart failure with right pleural effusion. Continue patient on metoprolol XL 25 mg orally once every day, continue patient on Lasix 40 mg IV push decreased to every 12 hours, monitor input and output and daily weight, continue patient also on hydralazine 75 mg orally twice every day, cardiology consultation appreciated. 2. Right-sided breast cancer status post chemotherapy 06/25 treatments. Consult with oncology appreciated. 3. Diarrhea secondary to chemotherapy. Patient will be resumed on Questran 4 g twice daily, Lomotil one daily. 4. Right pleural effusion with atelectasis. 5. Bicytopenia secondary to chemotherapy. Continue to monitor. 6. Anemia with component of possible acute blood loss and chronic GI bleed. Tr ansfuse 1 unit of packed RBCs and recheck hemoglobin tomorrow. Patient may require evaluation by Dr. Valdes for EGD but will hold on this for now. 7. History of CAD post CABG as well as PCI and stent placement. Continue patient on metoprolol XL 25 mg once every day, pravastatin 40 mg at bedtime. 8. History of paroxysmal atrial fibrillation. Continue patient on Eliquis 5 mg orally twice every day, continue amiodarone 100 mg orally once every day, metoprolol XL 25 mg orally once every day. 9. Hypertension and hypertensive cardiovascular disease. Continue patient on amlodipine 5 mg once every day, continue with metoprolol ER 25 mg orally once every day, monitor the patient blood pressure very closely. 10. Hyperlipidemia. Continue patient on pravastatin 40 mg at bedtime, monitor lipid panel, keep LDL 55-70. 11. Chronic kidney disease stage IV. Avoid nephrotoxic agents, consult nephrology. 12. History of enlarged prostate. Continue Flomax 0.4 mg once every day, monitor for urinary retention. 13. Diabetes mellitus type 2. Continue Lantus 30 units at bedtime along with NovoLog 25 units before each been 2 times every day, monitor the patient blood glucose level and at bedtime with NovoLog scale 14. Diabetic polyneuropathy. Stable. 15. History of DVT status post IVC filter placement, continue with Eliquis 5 mg orally twice every day. 16. history of gout. Continue patient on allopurinol 100 mg orally once every day. 17. History of meningioma with left-sided weakness. Physical therapy evaluation. Patient is a full code. DISCHARGE PLAN Return Home without home care Impression and plan of care have been directed as dictated by the signing physician. Nita Linn nurse practitioner acting as scribe for signing physician. Objective - Vital Signs Vital signs: Vital Signs Temp 97.7 F 06/04/22 04:00 Pulse 75 06/04/22 04:00 Resp 18 06/04/22 04:00 BP 123/59 06/04/22 04:00 Pulse Ox 100 06/04/22 04:00 FiO2 Intake & Output 06/03/22 06/04/22 06/04/22 18:59 06:59 18:59 Intake Total 480 180 Output Total 500 1 200 Balance -20 -1 -20 Weight 106.594 kg Intake: Oral 480 180 Output: Urine 500 200 Urine/Stool Mix 1 Other: Voiding Method Bedpan Bedpan Urinal Urinal # Voids 1 # Bowel Movements 1 2 1 - Labs CBC & Chem 7: 06/04/22 08:32 06/04/22 08:32 Labs: Abnormal Lab Results - Last 24 Hours (Table) 06/03/22 06/03/22 06/03/22 Range/Units 01:09 11:44 16:48 POC Glucose (mg/dL) 192 H 217 H (70-110) mg/dL Phosphorus 2.1 L (2.5-4.5) mg/dL Iron 27 L (65-175) ug/dL % Saturation 8.37 L (15.00-50.00) 06/03/22 06/04/22 Range/Units 19:43 06:04 POC Glucose (mg/dL) 165 H 116 H (70-110) mg/dL Phosphorus (2.5-4.5) mg/dL Iron (65-175) ug/dL % Saturation (15.00-50.00)
[2022-06-05] MEDS: INSULIN ASPART (NovoLOG) 100 UNIT/ML VIAL SQ SCH ×6 (08:12→20:53)
[2022-06-05] MEDS: FAMOTIDINE 20 MG TAB PO SCH (08:18)
[2022-06-05] MEDS: FERROUS SULFATE 325 MG TAB PO SCH (08:18)
[2022-06-05] MEDS: AMIODARONE 100 MG TAB PO SCH (08:18)
[2022-06-05] MEDS: amLODIPine 5 MG TAB PO SCH (08:18)
[2022-06-05] MEDS: TAMSULOSIN 0.4 MG CAP.ER.24H PO SCH ×2 (08:18→21:36)
[2022-06-05] MEDS: METOPROLOL SUCCINATE (ER) 25 MG TAB.ER.24H PO SCH (08:18)
[2022-06-05] MEDS: allopurinoL 100 MG TAB PO SCH (08:19)
[2022-06-05] MEDS: POTASSIUM CHLORIDE ER 20 MEQ TAB.ER PO SCH (08:19)
[2022-06-05] MEDS: hydrALAZINE HCL 25 MG TAB PO SCH ×2 (08:19→21:36)
[2022-06-05] MEDS: CHOLECALCIFEROL 25 MCG (1000 IU) TABLET PO SCH (08:19)
[2022-06-05] MEDS: FUROSEMIDE 10 MG/ML 4 ML VIAL IV SCH (08:19)
[2022-06-05] MEDS: FOLIC ACID 1 MG TAB PO SCH (08:19)
[2022-06-05 09:22] LABS: Anisocytosis Slight; HCT 23.4 % (39.0-53.0); HGB 7.4 gm/dL (13.0-17.5); Hypochromasia Moderate; MCH 31.8 pg (25.0-35.0); MCHC 31.8 g/dL (31.0-37.0); MCV 99.9 fL (80.0-100.0); Macrocytosis Moderate; Mean Platelet Volume 7.5; Platelet Count 256 k/uL (150-450); Poikilocytosis Moderate; RBC 2.34 m/uL (4.30-5.90); RDW 19.6 % (11.5-15.5); WBC 3.6 k/uL (3.8-10.6)
[2022-06-05 09:53] LABS: Albumin 3.1 g/dL (3.5-5.0); Potassium 3.5 mmol/L (3.5-5.1); Total Protein 4.8 g/dL (6.3-8.2)
[2022-06-05 09:54] LABS: Calcium 9.3 mg/dL (8.4-10.2); Total Bilirubin 0.4 mg/dL (0.2-1.3)
--- NOTE | 2022-06-05 10:44 | P.PN ---
Subjective Progress Note Date: 06/05/22 HISTORY OF PRESENT ILLNESS: This is a 71-year-old male with a past medical history significant for paroxysmal atrial fibrillation with previous ablation, coronary artery disease with three-vessel CABG in 2004, sick sinus syndrome, breast cancer on chemotherapy, hypertension, diabetes, and chronic kidney disease. Patient follows in the office with Dr. Turcios. We have been asked to see the patient in consultation for congestive heart failure. Patient examined at the bedside. Iron beltran reports she has been feeling short of breath for the past 4 days. He also reports some lower extremity edema. He denies any chest pain or pressure. He states he received his chemotherapy treatment about a week ago and has not been feeling very well since that time. The patient states he is taking his Eliquis 5 mg at night only because he cannot afford to take his Eliquis twice a day. Dis cussed importance of taking his Eliquis BID at home. * Telemetry reveals atrial fibrillation with controlled ventricular rate * Chest xray right pleural effusion with associated atelectasis. Mild car diomegaly. * Laboratory data: WBC 3.3. Hemoglobin 7.0. Platelet count 310. Sodium 141. Potassium 3.5. BUN 38. Creatinine 3.2. Troponin negative 3. ProBNP 1120. * Current home cardiac medications include Eliquis 5mg BID, amiodarone 100 mg daily, Lasix 80 mg daily, metoprolol succinate 25 mg daily, Pravachol 40 mg at night, Norvasc 5 mg daily, and hydralazine 75 mg twice a day * Most recent echocardiogram obtained in March 2021 revealed ejection fraction 50-55%, apical inferior and apical septal LV wall hypokinesis, mild aortic stenosis, mild MR, mild TR 06/04/2022 Patient examined this morning at the bedside. Patient denies chest pain or pressure. He denies shortness of breath. He continues to have lower extremity edema, although improving. He remains on IV Lasix 40 mg every 8 hours. Creatinine today 3.55. Nephrology is following. Echocardiogram completed revealing ejection fraction 55% with mild to moderate aortic stenosis. 06/05/2022 Patient examined this morning at the bedside. He denies chest pain or pressure. He denies SOB. He remains on IV lasix 40mg Q 12 hours. Creatinine today is 3.64. His lower extremity edema is improving. PHYSICAL EXAM: VITAL SIGNS: Reviewed. GENERAL: Well-developed in no acute distress. HEENT: Head is normocephalic. Pupils are equal, round. Sclerae anicteric. Mucous membranes of the mouth are moist. Neck supple. No JVD or thyromegaly LUNGS: Respirations even and unlabored. Lungs diminished to auscultation bilaterally. HEART: Irregular rate and rhythm. S1 and S2 heard. Systolic murmur noted ABDOMEN: Soft. Nondistended. Nontender. EXTREMITIES: Normal range of motion. No clubbing or cyanosis. Peripheral pulses intact. 1+ bilateral lower extremity edema NEUROLOGIC: Awake and alert. Oriented x 3. ASSESSMENT: Shortness of breath Acute on chronic heart failure with preserved ejection fraction Chronic kidney disease Paroxysmal atrial fibrillation Coronary artery disease with previous three-vessel CABG History of atrial fibrillation ablation History of breast cancer on chemotherapy Hypertension Hyperlipidemia Diabetes Anemia, s/p RBC transfusion PLAN: Continue current cardiac medications Decrease Lasix to 40 mg daily Monitor kidney function Further recommendations pending patient course Nurse practitioner note has been reviewed by physician. Signing provider agrees with the documented findings, assessment, and plan of care. Objective - Vital Signs Vital signs: Vital Signs Temp 97.7 F 06/05/22 08:00 Pulse 62 06/05/22 08:00 Resp 18 06/05/22 08:00 BP 137/68 06/05/22 08:00 Pulse Ox 98 06/05/22 08:00 FiO2 21 06/05/22 04:14 Intake & Output 06/04/22 06/05/22 06/05/22 18:59 06:59 18:59 Intake Total 850 300 Output Total 200 100 350 Balance 650 -100 -50 Intake: Oral 540 300 Blood Product 310 Rc As-1 Unit 310 [id number] Output: Urine 200 100 350 Other: Voiding Method Bedpan Bedpan Bedpan Urinal Urinal Urinal # Voids 2 # Bowel Movements 3 - Labs CBC & Chem 7: 06/05/22 08:49 06/05/22 08:49 Labs: Abnormal Lab Results - Last 24 Hours (Table) 06/04/22 06/04/22 06/04/22 Range/Units 10:59 11:54 16:42 WBC (3.8-10.6) k/uL RBC (4.30-5.90) m/uL Hgb (13.0-17.5) gm/dL Hct (39.0-53.0) % RDW (11.5-15.5) % BUN (9-20) mg/dL Creatinine (0.66-1.25) mg/dL Glucose (74-99) mg/dL POC Glucose (mg/dL) 139 H 203 H (70-110) mg/dL AST (17-59) U/L Total Protein (6.3-8.2) g/dL Albumin (3.5-5.0) g/dL Crossmatch See Detail 06/04/22 06/05/22 06/05/22 Range/Units 20:17 07:47 08:49 WBC 3.6 L (3.8-10.6) k/uL RBC 2.34 L (4.30-5.90) m/uL Hgb 7.4 L (13.0-17.5) gm/dL Hct 23.4 L (39.0-53.0) % RDW 19.6 H (11.5-15.5) % BUN (9-20) mg/dL Creatinine (0.66-1.25) mg/dL Glucose (74-99) mg/dL POC Glucose (mg/dL) 156 H 119 H (70-110) mg/dL AST (17-59) U/L Total Protein (6.3-8.2) g/dL Albumin (3.5-5.0) g/dL Crossmatch 06/05/22 Range/Units 08:49 WBC (3.8-10.6) k/uL RBC (4.30-5.90) m/uL Hgb (13.0-17.5) gm/dL Hct (39.0-53.0) % RDW (11.5-15.5) % BUN 40 H (9-20) mg/dL Creatinine 3.64 H (0.66-1.25) mg/dL Glucose 121 H (74-99) mg/dL POC Glucose (mg/dL) (70-110) mg/dL AST 16 L (17-59) U/L Total Protein 4.8 L (6.3-8.2) g/dL Albumin 3.1 L (3.5-5.0) g/dL Crossmatch
[2022-06-05 12:15] LABS: Glucose,Whole Blood 150 mg/dL (70-110)
--- NOTE | 2022-06-05 12:26 | P.PN ---
Subjective Patient is seen for f/u for PK on top of CKD. Admitted to the hospital with c/o diarrhea. Patient also had increased swelling lower extremities and is maintained on IV lasix. Diarrhea is improved Serum creatinine increased to 3.6 today. IV Lasix was decreased yesterday. No complaints of shortness of breath. Urine output is not accurately charted Objective - Vital Signs Vital signs: Vital Signs Temp 97.8 F 06/05/22 12:00 Pulse 67 06/05/22 12:00 Resp 17 06/05/22 12:00 BP 137/62 06/05/22 12:00 Pulse Ox 95 06/05/22 12:00 FiO2 21 06/05/22 04:14 Intake & Output 06/04/22 06/05/22 06/05/22 18:59 06:59 18:59 Intake Total 850 300 Output Total 200 100 350 Balance 650 -100 -50 Intake: Oral 540 300 Blood Product 310 Rc As-1 Unit 310 [id number] Output: Urine 200 100 350 Other: Voiding Method Bedpan Bedpan Bedpan Urinal Urinal Urinal # Voids 2 # Bowel Movements 3 - Exam Patient is awake, comfortable, not in acute distress. Alert and oriented x3. Lungs are clear with decreased breath sounds at bases CVS S1 and S2 Abdomen is soft, non tender Extremities show 1+ edema right leg and 2+ left leg. PIE DOUGH ROLLER exam is grossly intact. - Labs CBC & Chem 7: 06/05/22 08:49 06/05/22 08:49 Labs: Abnormal Lab Results - Last 24 Hours (Table) 06/04/22 06/04/22 06/04/22 Range/Units 10:59 16:42 20:17 WBC (3.8-10.6) k/uL RBC (4.30-5.90) m/uL Hgb (13.0-17.5) gm/dL Hct (39.0-53.0) % RDW (11.5-15.5) % BUN (9-20) mg/dL Creatinine (0.66-1.25) mg/dL Glucose (74-99) mg/dL POC Glucose (mg/dL) 203 H 156 H (70-110) mg/dL AST (17-59) U/L Total Protein (6.3-8.2) g/dL Albumin (3.5-5.0) g/dL Crossmatch See Detail 06/05/22 06/05/22 06/05/22 Range/Units 07:47 08:49 08:49 WBC 3.6 L (3.8-10.6) k/uL RBC 2.34 L (4.30-5.90) m/uL Hgb 7.4 L (13.0-17.5) gm/dL Hct 23.4 L (39.0-53.0) % RDW 19.6 H (11.5-15.5) % BUN 40 H (9-20) mg/dL Creatinine 3.64 H (0.66-1.25) mg/dL Glucose 121 H (74-99) mg/dL POC Glucose (mg/dL) 119 H (70-110) mg/dL AST 16 L (17-59) U/L Total Protein 4.8 L (6.3-8.2) g/dL Albumin 3.1 L (3.5-5.0) g/dL Crossmatch 06/05/22 Range/Units 12:13 WBC (3.8-10.6) k/uL RBC (4.30-5.90) m/uL Hgb (13.0-17.5) gm/dL Hct (39.0-53.0) % RDW (11.5-15.5) % BUN (9-20) mg/dL Creatinine (0.66-1.25) mg/dL Glucose (74-99) mg/dL POC Glucose (mg/dL) 150 H (70-110) mg/dL AST (17-59) U/L Total Protein (6.3-8.2) g/dL Albumin (3.5-5.0) g/dL Crossmatch Assessment and Plan Assessment: 1. CK D stage IV to 5 secondary to nephrosclerosis with baseline creatinine around 3.5-4 mg/dL. Renal function is currently close to baseline. Patient will be doing PD down the road 2. Volume overload currently maintained on IV Lasix which we can continue, dose is decreased. 3. Recent diagnosis of breast cancer currently maintained on chemotherapy 4. Diarrhea associated with chemotherapy maintained on Questran, improved 5. History of coronary artery disease status post coronary artery bypass surgery and coronary stent placement 6. Anemia multifactorial including underlying malignancy and chemotherapy and chronic kidney disease. No active bleeding noted Plan: Change Lasix to by mouth Repeat labs in am Conitnue flomax Close follow-up as outpatient for CK D and initiation of PD down the road.
[2022-06-05] MEDS: SODIUM FERRIC GLUCONAT-SUCROSE 125 MG in SODIUM CHLORIDE 0.9% 100 ML IVPB SCH (12:41)
[2022-06-05] MEDS: DIPHENOX-ATROP 2.5-0.025 MG 1 EACH TAB PO SCH (12:41)
[2022-06-05] MEDS: PANTOPRAZOLE 40 MG/10 ML VIAL IVP SCH (12:41)
--- NOTE | 2022-06-05 13:19 | P.PN ---
Subjective Progress Note Date: 06/05/22 HISTORY OF PRESENT ILLNESS: This is a 71-year-old male with a previous medical history significant for hy pertension and hypertensive cardiovascular disease with left ventricular hypertrophy, hyperlipidemia, diabetes mellitus type 2, with diabetic polyneuropathy, history of coronary artery disease status post coronary artery bypass graft x3 followed by stent, history of atrial fibrillation status post a blation on long-term eliquis, history of meningioma status post resection back in April 2013 with left-sided weakness, history of chronic kidney disease stage IV currently under the care of nephrology with plan for CAPD at later date, history of anemia of chronic kidney disease, history of secondary hyperparathyroidism. Patient also has history of newly diagnosed breast cancer on the right side status post biopsy which revealed invasive moderately differentiated ductal carcinoma status post chemotherapy 10 treatments out of 12 completed as of one week ago today. Plan is for radiation therapy following and then surgical intervention. Patient is complaining of diarrhea which she states does not stop. He is on Questran and Lomotil. He states yesterday it was significantly worse. He states the diarrhea is watery and he has incontinence. Patient also developed edema to the lower extremities left greater than right for the past week along with shortness of breath and orthopnea. Regarding renal failure, patient follows with Dr. Campos and there is plan for CAPD once his cancer treatment is completed. He is making urine. Patient does complain of difficulty sleeping. Patient came into [facility] emergency center for evaluation. He was found to be afebrile, heart rate 80, blood pressure 114/62, pulse ox 97% on room air. WBC 3.3, hemoglobin 7, platelet count 310. INR 1.1. Sodium 141, potassium 3.5, chloride 108, CO2 20, BUN 38 creatinine 3.2. Glucose 216. Liver function tests normal. Troponin negative on 3 draws. Albumin 3.5. ProBNP 1120. Chest x-ray reveals right pleural effusion with associated atelectasis. Overall not significant change from 03/03/2022. Mild cardiomegaly. [id number] within the superior vena cava. Patient was admitted to the cardiac stepdown unit and cardiology consult and nephrology consult ordered. Will add in consult for oncology, patient's oncologist is Dr. Cameron. He has been started on Lasix 40 mg IV push every 8 hours. 06/04: Patient has been seen by cardiology and echocardiogram was resumed on home medications and continued on IV Lasix but decreased frequency today at every 12 hours. Nephrology is recommended iron studies, added Aranesp and check phosphorus level monitor urine output. Patient has been seen by oncology and may consider CAT scan of the chest to rule out drug-induced pneumonitis. Patient has been afebrile, heart rate 75, blood pressure 123/59, pulse ox 97% on room air, patient utilize CPAP at night. Capillary blood glucose running between 116 and 217. Phosphorus 2.1. Iron 27, TIBC 326, iron saturation 8.37%, transferrin 233. WBC 2.9, hemoglobin 6.1, platelet count 277. Sodium 140, potassium 3.1, chloride 108, CO2 23, BUN 39 and creatinine 3.55. Potassium replaced and patient ordered for 1 unit of packed RBCs. Patient states that his breathing is better from yesterday. He denies any cough or sputum production. Patient's states that he has had black stools for some time. Discuss possibility of adding Dr. Valdes for further evaluation of GI bleed but will hold off now and recheck hemoglobin in the morning. Echocardiogram reveals EF of 50-55%, mildly increased left ventricular wall thickness. Mild mitral regurgitation, mild to moderate aortic stenosis with pe ak gradient of 28 mmHg and mean gradient of 16 mmHg 06/05: Patient continues to feel better each day. He states he slept well last night. He was able to tolerate his diet and is eating okay without nausea or vomiting. He has not had a bowel movement today. He denies having any fever or chills. He denies any cough. Nephrology has changed IV Lasix to oral 40 mg daily, plan on outpatient follow-up and initiation of PD down the road. Eliquis was discontinued yesterday. patient remains on Aranesp weekly, he will complete Ferrlecit 125 mg daily 2 today. Oncology has cleared the patient for discharge tomorrow. Repeat blood work reveals WBC 3.6, hemoglobin 7.4, platelet count 256. Electrolytes normal. BUN 40 creatinine 3.64. Capillary blood glucose running between 119 and 156.Repeat blood work ordered for the morning. Patient has been afebrile, heart rate 60s, blood pressure 119/57, pulse ox 95% on room air. CAT scan of the chest without contrast ordered by oncology reveals a right empyema which is similar to prior PET scan 02/21. Consolidation changes within the right lung base felt to be similar to prior PET scan. Trace left pleural effusion. Pulmonary hypertension. Cardiomegaly with CABG changes. Mild dominantly right-sided pulmonary vascular congestion. REVIEW OF SYSTEMS: Constitutional: No documented fever, no chills, no night sweats. No weight change. positive for weakness, fatigue or lethargy. No daytime sleepiness. HEENT: No headache. No blurred vision or double vision, no loss of vision. No loss of Hearing, no ringing in the ears, no dizziness. No nasal drainage or congestion. No epistaxis. No sore throat. Lungs: positive for shortness of breath, no cough, no sputum production. No wheezing. Reports dyspnea with activity. Cardiovascular: No chest pain, reports lower extremity edema. No palpitations. No paroxysmal nocturnal dyspnea. Reports orthopnea. No lightheadedness or dizziness. No syncopal episodes. Abdominal: Reports no abdominal pain. No nausea, vomiting. Reports diarrhea. No constipation. Reported bloody or tarry stools reports loss of appetite- improving. Genitourinary: No dysuria, increased frequency, urgency. No urinary retention. Musculoskeletal: No myalgias. positive for chronic left sided weakness, positiv e for gait dysfunction, no frequent falls. positive for back pain. positive for neck pain. Integumentary: No wounds, no lesions. No rash or pruritus. No unusual bruising. No change in hair or nails. Neurologic: No aphasia. No facial droop. No change in mentation. No head injury. No headache, positive for left sided weakness and left foot drop. Psychiatric: positive for depression. No anxiety. No mood swings. Endocrine: No abnormal blood sugars. No weight change. PHYSICAL EXAMINATION: General: this is a 71-year-old male who is sitting up in bed appears to be in no respiratory distress at rest. Patient's is at bedside. HEENT: Head is atraumatic, normocephalic, pupils were equal round reactive to light and recommendation, extraocular muscle movement were intact, sclera nonic teric, conjunctivae were pale, mucous membranes of the mouth are somewhat dry. Neck: Supple, no JVP, normal carotid upstroke bilaterally, no lymphadenopathy. Chest: Decreased breath sounds at the bases with decreased tactile fremitus, few rhonchi, no expiratory wheezes, no chest wall tenderness, no intercostal retractions. Heart: First heart sound is normal, second heart sounds normal, irregularly irregular, there is systolic initial murmur 2/6 located in the left sternal border. Abdomen: Soft, nontender, nondistended, positive bowel sounds. No epigastric tenderness. Extremities: There is +1 edema to the bilateral lower extremities left greater than right no calf tenderness DP +2 bilaterally. Neurologic examination: Patient is awake alert and oriented X3 , cranial nerves II-12 appear grossly intact, there is left-sided weakness with left foot drop. ASSESSMENT AND PLAN: 1. Acute diastolic heart failure with right pleural effusion. Continue patient on metoprolol XL 25 mg orally once every day, continue patient on Lasix 40 mg changed to oral daily, monitor input and output and daily weight, continue patient also on hydralazine 75 mg orally twice every day, cardiology consultation appreciated. 2. Right-sided breast cancer status post chemotherapy 06/25 treatments. Consult with oncology appreciated. 3. Diarrhea secondary to chemotherapy. Patient will be resumed on Lomotil one daily. 4. Right pleural effusion with atelectasis. 5. Bicytopenia secondary to chemotherapy. Continue to monitor. 6. Anemia with component of possible acute blood loss and chronic GI bleed. Transfuse 1 unit of packed RBCs and recheck hemoglobin tomorrow. Ferrlecit 2 doses . Eliquis discontinued for now. 7. History of CAD post CABG as well as PCI and stent placement. Continue pat ient on metoprolol XL 25 mg once every day, pravastatin 40 mg at bedtime. 8. History of paroxysmal atrial fibrillation. Hold Eliquis 5 mg orally twice every day, continue amiodarone 100 mg orally once every day, metoprolol XL 25 mg orally once every day. 9. Hypertension and hypertensive cardiovascular disease. Continue patient on amlodipine 5 mg once every day, continue with metoprolol ER 25 mg orally once every day, monitor the patient blood pressure very closely. 10. Hyperlipidemia. Continue patient on pravastatin 40 mg at bedtime, monitor lipid panel, keep LDL 55-70. 11. Chronic kidney disease stage IV. Avoid nephrotoxic agents, consult nephrology. 12. History of enlarged prostate. Continue Flomax 0.4 mg once every day, monitor for urinary retention. 13. Diabetes mellitus type 2. Continue Lantus 30 units at bedtime along with NovoLog 25 units before each been 2 times every day, monitor the patient blood glucose level and at bedtime with NovoLog scale 14. Diabetic polyneuropathy. Stable. 15. History of DVT status post IVC filter placement, hold Eliquis 5 mg orally twice every day. 16. history of gout. Continue patient on allopurinol 100 mg orally once every day. 17. History of meningioma with left-sided weakness. Physical therapy evaluation. Patient is a full code. DISCHARGE PLAN Return Home without home care on Thursday Impression and plan of care have been directed as dictated by the signing physician. Nita Linn nurse practitioner acting as scribe for signing physician. Objective - Vital Signs Vital signs: Vital Signs Temp 98.1 F 06/04/22 21:00 Pulse 66 06/05/22 04:30 Resp 17 06/05/22 04:30 BP 119/57 06/05/22 04:30 Pulse Ox 95 06/05/22 04:30 FiO2 06/05/22 04:14 Intake & Output 06/04/22 06/05/22 06/05/22 18:59 06:59 18:59 Intake Total 850 Output Total 200 100 Balance 650 -100 Intake: Oral 540 Blood Product 310 Rc As-1 Unit 310 [id number] Output: Urine 200 100 Other: Voiding Method Bedpan Bedpan Urinal Urinal # Voids 2 # Bowel Movements 3 - Labs CBC & Chem 7: 06/05/22 08:49 06/05/22 08:49 Labs: Abnormal Lab Results - Last 24 Hours (Table) 06/04/22 06/04/22 06/04/22 Range/Units 08:32 08:32 10:59 WBC 2.9 L (3.8-10.6) k/uL RBC 1.85 L (4.30-5.90) m/uL Hgb 6.1 L* (13.0-17.5) gm/dL Hct 18.9 L* (39.0-53.0) % MCV 102.1 H (80.0-100.0) fL RDW 19.3 H (11.5-15.5) % Lymphocytes # 0.3 L (1.0-4.8) k/uL Potassium 3.1 L (3.5-5.1) mmol/L Chloride 108 H (98-107) mmol/L BUN 39 H (9-20) mg/dL Creatinine 3.55 H (0.66-1.25) mg/dL Glucose 104 H (74-99) mg/dL POC Glucose (mg/dL) (70-110) mg/dL AST 15 L (17-59) U/L Total Protein 4.7 L (6.3-8.2) g/dL Albumin 2.9 L (3.5-5.0) g/dL Crossmatch See Detail 06/04/22 06/04/22 06/04/22 Range/Units 11:54 16:42 20:17 WBC (3.8-10.6) k/uL RBC (4.30-5.90) m/uL Hgb (13.0-17.5) gm/dL Hct (39.0-53.0) % MCV (80.0-100.0) fL RDW (11.5-15.5) % Lymphocytes # (1.0-4.8) k/uL Potassium (3.5-5.1) mmol/L Chloride (98-107) mmol/L BUN (9-20) mg/dL Creatinine (0.66-1.25) mg/dL Glucose (74-99) mg/dL POC Glucose (mg/dL) 139 H 203 H 156 H (70-110) mg/dL AST (17-59) U/L Total Protein (6.3-8.2) g/dL Albumin (3.5-5.0) g/dL Crossmatch 06/05/22 Range/Units 07:47 WBC (3.8-10.6) k/uL RBC (4.30-5.90) m/uL Hgb (13.0-17.5) gm/dL Hct (39.0-53.0) % MCV (80.0-100.0) fL RDW (11.5-15.5) % Lymphocytes # (1.0-4.8) k/uL Potassium (3.5-5.1) mmol/L Chloride (98-107) mmol/L BUN (9-20) mg/dL Creatinine (0.66-1.25) mg/dL Glucose (74-99) mg/dL POC Glucose (mg/dL) 119 H (70-110) mg/dL AST (17-59) U/L Total Protein (6.3-8.2) g/dL Albumin (3.5-5.0) g/dL Crossmatch
--- NOTE | 2022-06-05 15:43 | P.PN ---
Subjective Progress Note Date: 06/05/22 Principal diagnosis: dyspnea on exertion, in treatment for male breast cancer In follow-up today patient breathing is better, he feels in general better, still having diarrhea, not as urgent. Objective - Vital Signs Vital signs: Vital Signs Temp 97.7 F 06/05/22 08:00 Pulse 62 06/05/22 08:00 Resp 18 06/05/22 08:00 BP 137/68 06/05/22 08:00 Pulse Ox 98 06/05/22 08:00 FiO2 21 06/05/22 04:14 Intake & Output 06/04/22 06/05/22 06/05/22 18:59 06:59 18:59 Intake Total 850 300 Output Total 200 100 Balance 650 -100 300 Intake: Oral 540 300 Blood Product 310 Rc As-1 Unit 310 [id number] Output: Urine 200 100 Other: Voiding Method Bedpan Bedpan Bedpan Urinal Urinal Urinal # Voids 2 # Bowel Movements 3 - Constitutional General appearance: Present: cooperative, no acute distress, obese - EENT Eyes: Present: anicteric sclerae, EOMI ENT: Present: hearing grossly normal - Respiratory Respiratory: right: diminished (base) - Cardiovascular Rhythm: regular Heart sounds: normal: S1, S2 Abnormal Heart Sounds: Present: systolic murmur - Musculoskeletal Musculoskeletal: Present: generalized weakness - Psychiatric Psychiatric: Present: A&O x's 3, appropriate affect, intact judgment & insight - Labs CBC & Chem 7: 06/05/22 08:49 06/05/22 08:49 Labs: Abnormal Lab Results - Last 24 Hours (Table) 06/04/22 06/04/22 06/04/22 Range/Units 10:59 11:54 16:42 WBC (3.8-10.6) k/uL RBC (4.30-5.90) m/uL Hgb (13.0-17.5) gm/dL Hct (39.0-53.0) % RDW (11.5-15.5) % POC Glucose (mg/dL) 139 H 203 H (70-110) mg/dL Crossmatch See Detail 06/04/22 06/05/22 06/05/22 Range/Units 20:17 07:47 08:49 WBC 3.6 L (3.8-10.6) k/uL RBC 2.34 L (4.30-5.90) m/uL Hgb 7.4 L (13.0-17.5) gm/dL Hct 23.4 L (39.0-53.0) % RDW 19.6 H (11.5-15.5) % POC Glucose (mg/dL) 156 H 119 H (70-110) mg/dL Crossmatch Assessment and Plan (1) Heart failure Current Visit: Yes Status: Acute Priority: Low Code(s): I50.9 - HEART FAILURE, UNSPECIFIED SNOMED Code(s): 61502525 (2) Cancer of right male breast Current Visit: Yes Status: Acute Priority: Medium Code(s): C50.921 - MALIGNANT NEOPLASM OF UNSPECIFIED SITE OF RIGHT MALE BREAST SNOMED Code(s): 879921875 (3) Anemia Current Visit: Yes Status: Chronic Priority: Medium Code(s): D64.9 - ANEMIA, UNSPECIFIED SNOMED Code(s): 526434617 Plan: ECHO revealed LVEF 55%. Cardiology has assessed the patient. Patient has received Lasix, no wt changes. He has been seen by Nephrology for chronic kidney disease. Swelling in his legs is stable. Breathing stable, baseline today. High resolution CT of the chest, no pneumonitis, chronic rt effusion, atelectasis and pulm HTN. Antidiarrheals ordered sched QD and PRN Q 6 hours. Patient does not want Questran. Diarrhea from treatment. Stable at this time. Electrolytes normal today. Continue supplements. Patient has a history of chronic kidney disease. Patient's creatinine is within normal limits for him. Nephrology consulted. Anemia of CKD. Pt did receive his Epo injection. He was given IV iron about 5 weeks ago, recheck of iron studies shows low saturation. IV iron ordered-iron saturation has to be actively supplemented for Epo injections. F/U with Dr. Armando Cameron before resuming any treatment. Appt in [place] plan. attests: I have seen and examined patient, performed H&P, developed impression and plan of care. Discussed with dictator. Agree with documentation, dictated as a scribe.
[2022-06-05 16:59] LABS: Glucose,Whole Blood 110 mg/dL (70-110)
[2022-06-05 20:14] LABS: Glucose,Whole Blood 204 mg/dL (70-110)
[2022-06-05] MEDS: PRAVASTATIN SODIUM 40 MG TAB PO SCH (21:36)
[2022-06-05] MEDS: INSULIN DETEMIR (LEVEMIR) 100 UNIT/ML SYR SQ SCH (21:36)
[2022-06-05] MEDS: MELATONIN 3 MG TABLET PO SCH (21:36)
[2022-06-06 07:17] LABS: Glucose,Whole Blood 138 mg/dL (70-110)
[2022-06-06 08:54] LABS: Anisocytosis Moderate; HCT 23.9 % (39.0-53.0); HGB 7.3 gm/dL (13.0-17.5); Hypochromasia Marked; MCH 31.4 pg (25.0-35.0); MCHC 30.3 g/dL (31.0-37.0); MCV 103.5 fL (80.0-100.0); Macrocytosis Marked; Mean Platelet Volume 7.3; Platelet Count 273 k/uL (150-450); Poikilocytosis Moderate; RBC 2.31 m/uL (4.30-5.90); RDW 20.1 % (11.5-15.5); WBC 3.7 k/uL (3.8-10.6)
[2022-06-06] MEDS ORDERED: FUROSEMIDE 10 MG/ML 4 ML VIAL IV SCH (09:00)
[2022-06-06 09:09] LABS: Albumin 3.1 g/dL (3.5-5.0); Calcium 9.3 mg/dL (8.4-10.2); Potassium 3.8 mmol/L (3.5-5.1); Total Bilirubin 0.3 mg/dL (0.2-1.3); Total Protein 4.8 g/dL (6.3-8.2)
--- NOTE | 2022-06-06 09:37 | P.PN ---
Subjective Progress Note Date: 06/06/22 HISTORY OF PRESENT ILLNESS: This is a 71-year-old male with a previous medical history significant for hy pertension and hypertensive cardiovascular disease with left ventricular hypertrophy, hyperlipidemia, diabetes mellitus type 2, with diabetic polyneuropathy, history of coronary artery disease status post coronary artery bypass graft x3 followed by stent, history of atrial fibrillation status post a blation on long-term eliquis, history of meningioma status post resection back in April 2013 with left-sided weakness, history of chronic kidney disease stage IV currently under the care of nephrology with plan for CAPD at later date, history of anemia of chronic kidney disease, history of secondary hyperparathyroidism. Patient also has history of newly diagnosed breast cancer on the right side status post biopsy which revealed invasive moderately differentiated ductal carcinoma status post chemotherapy 10 treatments out of 12 completed as of one week ago today. Plan is for radiation therapy following and then surgical intervention. Patient is complaining of diarrhea which she states does not stop. He is on Questran and Lomotil. He states yesterday it was significantly worse. He states the diarrhea is watery and he has incontinence. Patient also developed edema to the lower extremities left greater than right for the past week along with shortness of breath and orthopnea. Regarding renal failure, patient follows with Dr. Campos and there is plan for CAPD once his cancer treatment is completed. He is making urine. Patient does complain of difficulty sleeping. Patient came into [facility] emergency center for evaluation. He was found to be afebrile, heart rate 80, blood pressure 114/62, pulse ox 97% on room air. WBC 3.3, hemoglobin 7, platelet count 310. INR 1.1. Sodium 141, potassium 3.5, chloride 108, CO2 20, BUN 38 creatinine 3.2. Glucose 216. Liver function tests normal. Troponin negative on 3 draws. Albumin 3.5. ProBNP 1120. Chest x-ray reveals right pleural effusion with associated atelectasis. Overall not significant change from 03/03/2022. Mild cardiomegaly. [id number] within the superior vena cava. Patient was admitted to the cardiac stepdown unit and cardiology consult and nephrology consult ordered. Will add in consult for oncology, patient's oncologist is Dr. Cameron. He has been started on Lasix 40 mg IV push every 8 hours. 06/04: Patient has been seen by cardiology and echocardiogram was resumed on home medications and continued on IV Lasix but decreased frequency today at every 12 hours. Nephrology is recommended iron studies, added Aranesp and check phosphorus level monitor urine output. Patient has been seen by oncology and may consider CAT scan of the chest to rule out drug-induced pneumonitis. Patient has been afebrile, heart rate 75, blood pressure 123/59, pulse ox 97% on room air, patient utilize CPAP at night. Capillary blood glucose running between 116 and 217. Phosphorus 2.1. Iron 27, TIBC 326, iron saturation 8.37%, transferrin 233. WBC 2.9, hemoglobin 6.1, platelet count 277. Sodium 140, potassium 3.1, chloride 108, CO2 23, BUN 39 and creatinine 3.55. Potassium replaced and patient ordered for 1 unit of packed RBCs. Patient states that his breathing is better from yesterday. He denies any cough or sputum production. Patient's states that he has had black stools for some time. Discuss possibility of adding Dr. Valdes for further evaluation of GI bleed but will hold off now and recheck hemoglobin in the morning. Echocardiogram reveals EF of 50-55%, mildly increased left ventricular wall thickness. Mild mitral regurgitation, mild to moderate aortic stenosis with pe ak gradient of 28 mmHg and mean gradient of 16 mmHg 06/05: Patient continues to feel better each day. He states he slept well last night. He was able to tolerate his diet and is eating okay without nausea or vomiting. He has not had a bowel movement today. He denies having any fever or chills. He denies any cough. Nephrology has changed IV Lasix to oral 40 mg daily, plan on outpatient follow-up and initiation of PD down the road. Eliquis was discontinued yesterday. patient remains on Aranesp weekly, he will complete Ferrlecit 125 mg daily 2 today. Oncology has cleared the patient for discharge tomorrow. Repeat blood work reveals WBC 3.6, hemoglobin 7.4, platelet count 256. Electrolytes normal. BUN 40 creatinine 3.64. Capillary blood glucose running between 119 and 156.Repeat blood work ordered for the morning. Patient has been afebrile, heart rate 60s, blood pressure 119/57, pulse ox 95% on room air. CAT scan of the chest without contrast ordered by oncology reveals a right empyema which is similar to prior PET scan 02/21. Consolidation changes within the right lung base felt to be similar to prior PET scan. Trace left pleural effusion. Pulmonary hypertension. Cardiomegaly with CABG changes. Mild dominantly right-sided pulmonary vascular congestion. 06/06: Patient states that last night he had trouble with his diaphragm spasming for about 4 hours and causing him some shortness of breath. This has resolved at the time of evaluation. He is not on home oxygen therapy. He states that he has never seen an lung/pulmonary doctor in the past. Due to results of the CAT scan, we will ask for pulmonary medicine to take a look at him today. Patient is afebrile, heart rate 69, blood pressure 176/78, pulse ox 90% on 2 L nasal cannula. Repeat blood work reveals WBC 3.7, Hemoccult 7.3, platelet count 273. Sodium 140, potassium 3.8, chloride 108, CO2 22, BUN 41 creatinine 3.81. Blood sugars are running between 110 and 204. Plan to monitor patient overnight and discharged home tomorrow. REVIEW OF SYSTEMS: Constitutional: No documented fever, no chills, no night sweats. No weight change. positive for weakness, fatigue or lethargy. No daytime sleepiness. HEENT: No headache. No blurred vision or double vision, no loss of vision. No loss of Hearing, no ringing in the ears, no dizziness. No nasal drainage or congestion. No epistaxis. No sore throat. Lungs: positive for shortness of breath, no cough, no sputum production. No wheezing. Reports dyspnea with activity. Cardiovascular: No chest pain, reports lower extremity edema. No palpitations. No paroxysmal nocturnal dyspnea. Reports orthopnea. No lightheadedness or dizziness. No syncopal episodes. Abdominal: Reports no abdominal pain. No nausea, vomiting. Reports diarrhea. No constipation. Reported bloody or tarry stools reports loss of appetite- improving. Genitourinary: No dysuria, increased frequency, urgency. No urinary retention. Musculoskeletal: No myalgias. positive for chronic left sided weakness, positive for gait dysfunction, no frequent falls. positive for back pain. positive for neck pain. Integumentary: No wounds, no lesions. No rash or pruritus. No unusual bruising. No change in hair or nails. Neurologic: No aphasia. No facial droop. No change in mentation. No head injury. No headache, positive for left sided weakness and left foot drop. Psychiatric: positive for depression. No anxiety. No mood swings. Endocrine: No abnormal blood sugars. No weight change. PHYSICAL EXAMINATION: General: this is a 71-year-old male who is sitting up in bed appears to be in no respiratory distress at rest. Patient's is at bedside. HEENT: Head is atraumatic, normocephalic, pupils were equal round reactive to light and recommendation, extraocular muscle movement were intact, sclera nonicteric, conjunctivae were pale, mucous membranes of the mouth are somewhat dry. Neck: Supple, no JVP, normal carotid upstroke bilaterally, no lymphadenopathy. Chest: Decreased breath sounds at the bases with decreased tactile fremitus, few rhonchi, no expiratory wheezes, no chest wall tenderness, no intercostal retractions. Heart: First heart sound is normal, second heart sounds normal, irregularly irregular, there is systolic initial murmur 2/6 located in the left sternal border. Abdomen: Soft, nontender, nondistended, positive bowel sounds. No epigastric tenderness. Extremities: There is +1 edema to the left lower extremitiy, right with trace edema, no calf tenderness DP +2 bilaterally. Neurologic examination: Patient is awake alert and oriented X3 , cranial nerves II-12 appear grossly intact, there is left-sided weakness with left foot drop. ASSESSMENT AND PLAN: 1. Acute diastolic heart failure with right pleural effusion. Continue patient on metoprolol XL 25 mg orally once every day, continue patient on Lasix 40 mg changed to oral daily, monitor input and output and daily weight, continue patient also on hydralazine 75 mg orally twice every day, cardiology consultation appreciated. 2. Right-sided breast cancer status post chemotherapy 06/25 treatments. Consult with oncology appreciated. 3. Diarrhea secondary to chemotherapy. Patient will be resumed on Lomotil one daily. 4. Right pleural effusion with atelectasis. 5. Bicytopenia secondary to chemotherapy. Continue to monitor. 6. Anemia with possible component of acute blood loss and chronic GI bleed. Transfuse 1 unit of packed RBCs and recheck hemoglobin tomorrow. Ferrlecit 2 doses. Eliquis discontinued for now. 7. History of CAD post CABG as well as PCI and stent placement. Continue patient on metoprolol XL 25 mg once every day, pravastatin 40 mg at bedtime. 8. History of paroxysmal atrial fibrillation. Hold Eliquis 5 mg orally twice every day, continue amiodarone 100 mg orally once every day, metoprolol XL 25 mg orally once every day. 9. Hypertension and hypertensive cardiovascular disease. Continue patient on amlodipine 5 mg once every day, continue with metoprolol ER 25 mg orally once every day, monitor the patient blood pressure very closely. 10. Hyperlipidemia. Continue patient on pravastatin 40 mg at bedtime, monitor lipid panel, keep LDL 55-70. 11. Chronic kidney disease stage IV. Avoid nephrotoxic agents, consult n ephrology. 12. History of enlarged prostate. Continue Flomax 0.4 mg once every day, monitor for urinary retention. 13. Diabetes mellitus type 2. Continue Lantus 30 units at bedtime along with NovoLog 25 units before each been 2 times every day, monitor the patient blood glucose level and at bedtime with NovoLog scale 14. Diabetic polyneuropathy. Stable. 15. History of DVT status post IVC filter placement, hold Eliquis 5 mg orally twice every day. 16. history of gout. Continue patient on allopurinol 100 mg orally once every day. 17. History of meningioma with left-sided weakness. Physical therapy evaluation. Patient is a full code. DISCHARGE PLAN Return Home without home care on Thursday Impression and plan of care have been directed as dictated by the signing physician. Nita Linn nurse practitioner acting as scribe for signing physician. Objective - Vital Signs Vital signs: Vital Signs Temp 97.5 F L 06/06/22 04:00 Pulse 69 06/06/22 04:00 Resp 19 06/06/22 04:00 BP 176/78 06/06/22 04:00 Pulse Ox 98 06/06/22 04:00 FiO2 21 06/06/22 00:38 Intake & Output 06/05/22 06/06/22 06/06/22 18:59 06:59 18:59 Intake Total 660 Output Total 350 200 Balance 310 -200 Intake: Oral 660 Output: Urine 350 200 Other: Voiding Method Bedpan Urinal # Voids 2 1 # Bowel Movements 1 - Labs CBC & Chem 7: 06/06/22 08:40 06/06/22 08:40 Labs: Abnormal Lab Results - Last 24 Hours (Table) 06/05/22 06/05/22 06/05/22 Range/Units 08:49 08:49 12:13 WBC 3.6 L (3.8-10.6) k/uL RBC 2.34 L (4.30-5.90) m/uL Hgb 7.4 L (13.0-17.5) gm/dL Hct 23.4 L (39.0-53.0) % RDW 19.6 H (11.5-15.5) % BUN 40 H (9-20) mg/dL Creatinine 3.64 H (0.66-1.25) mg/dL Glucose 121 H (74-99) mg/dL POC Glucose (mg/dL) 150 H (70-110) mg/dL AST 16 L (17-59) U/L Total Protein 4.8 L (6.3-8.2) g/dL Albumin 3.1 L (3.5-5.0) g/dL 06/05/22 06/06/22 Range/Units 20:10 07:16 WBC (3.8-10.6) k/uL RBC (4.30-5.90) m/uL Hgb (13.0-17.5) gm/dL Hct (39.0-53.0) % RDW (11.5-15.5) % BUN (9-20) mg/dL Creatinine (0.66-1.25) mg/dL Glucose (74-99) mg/dL POC Glucose (mg/dL) 204 H 138 H (70-110) mg/dL AST (17-59) U/L Total Protein (6.3-8.2) g/dL Albumin (3.5-5.0) g/dL
[2022-06-06] MEDS: INSULIN ASPART (NovoLOG) 100 UNIT/ML VIAL SQ SCH ×6 (09:45→21:20)
[2022-06-06] MEDS: PANTOPRAZOLE 40 MG/10 ML VIAL IVP SCH (09:47)
[2022-06-06] MEDS: POTASSIUM CHLORIDE ER 20 MEQ TAB.ER PO SCH (09:47)
[2022-06-06] MEDS: TAMSULOSIN 0.4 MG CAP.ER.24H PO SCH ×2 (09:47→21:24)
[2022-06-06] MEDS: AMIODARONE 100 MG TAB PO SCH (09:47)
[2022-06-06] MEDS: hydrALAZINE HCL 25 MG TAB PO SCH ×2 (09:47→21:24)
[2022-06-06] MEDS: DIPHENOX-ATROP 2.5-0.025 MG 1 EACH TAB PO SCH (09:47)
[2022-06-06] MEDS: amLODIPine 5 MG TAB PO SCH (09:47)
[2022-06-06] MEDS: FOLIC ACID 1 MG TAB PO SCH (09:47)
[2022-06-06] MEDS: FERROUS SULFATE 325 MG TAB PO SCH (09:48)
[2022-06-06] MEDS: METOPROLOL SUCCINATE (ER) 25 MG TAB.ER.24H PO SCH (09:48)
[2022-06-06] MEDS: CHOLECALCIFEROL 25 MCG (1000 IU) TABLET PO SCH (09:48)
[2022-06-06] MEDS: allopurinoL 100 MG TAB PO SCH (09:48)
[2022-06-06] MEDS: FUROSEMIDE 40 MG TAB PO SCH (09:48)
[2022-06-06] MEDS: FAMOTIDINE 20 MG TAB PO SCH (09:48)
[2022-06-06 11:47] LABS: Glucose,Whole Blood 213 mg/dL (70-110)
--- NOTE | 2022-06-06 11:50 | P.PN ---
Subjective Patient is seen for f/u for PK on top of CKD. Baseline creatinine around 3.5-4 mg/dL with plans for peritoneal dialysis down the road. Admitted to the hospital with c/o diarrhea. Patient also had increased swelling lower extremities and is maintained on IV lasix. Diarrhea is improved Serum creatinine increased to 3.8 . Lasix has been decreased over the last 2 days.. Patient complaint of some shortness of breath this morning which seems to be unclear and more like a choking sensation. His O2 requirements have not increased. Patient has right pleural effusion/empyema is not new. Objective - Vital Signs Vital signs: Vital Signs Temp 97.5 F L 06/06/22 08:00 Pulse 68 06/06/22 08:00 Resp 19 06/06/22 08:00 BP 143/80 06/06/22 08:00 Pulse Ox 96 06/06/22 08:00 FiO2 21 06/06/22 00:38 Intake & Output 06/05/22 06/06/22 06/06/22 18:59 06:59 18:59 Intake Total 660 Output Total 350 200 Balance 310 -200 Intake: Oral 660 Output: Urine 350 200 Other: Voiding Method Bedpan Urinal # Voids 2 1 # Bowel Movements 1 - Exam Patient is awake, comfortable, not in acute distress. Alert and oriented x3. Lungs are clear with decreased breath sounds at bases CVS S1 and S2 Abdomen is soft, non tender Extremities show 1+ edema right leg and 2+ left leg. [employer] exam is grossly intact. - Labs CBC & Chem 7: 06/06/22 08:40 06/06/22 08:40 Labs: Abnormal Lab Results - Last 24 Hours (Table) 06/05/22 06/05/22 06/06/22 Range/Units 12:13 20:10 07:16 WBC (3.8-10.6) k/uL RBC (4.30-5.90) m/uL Hgb (13.0-17.5) gm/dL Hct (39.0-53.0) % MCV (80.0-100.0) fL MCHC (31.0-37.0) g/dL RDW (11.5-15.5) % Macrocytosis Chloride (98-107) mmol/L BUN (9-20) mg/dL Creatinine (0.66-1.25) mg/dL Glucose (74-99) mg/dL POC Glucose (mg/dL) 150 H 204 H 138 H (70-110) mg/dL AST (17-59) U/L Total Protein (6.3-8.2) g/dL Albumin (3.5-5.0) g/dL 06/06/22 06/06/22 Range/Units 08:40 08:40 WBC 3.7 L (3.8-10.6) k/uL RBC 2.31 L (4.30-5.90) m/uL Hgb 7.3 L (13.0-17.5) gm/dL Hct 23.9 L (39.0-53.0) % MCV 103.5 H (80.0-100.0) fL MCHC 30.3 L (31.0-37.0) g/dL RDW 20.1 H (11.5-15.5) % Macrocytosis Marked A Chloride 108 H (98-107) mmol/L BUN 41 H (9-20) mg/dL Creatinine 3.81 H (0.66-1.25) mg/dL Glucose 154 H (74-99) mg/dL POC Glucose (mg/dL) (70-110) mg/dL AST 15 L (17-59) U/L Total Protein 4.8 L (6.3-8.2) g/dL Albumin 3.1 L (3.5-5.0) g/dL Assessment and Plan Assessment: 1. CK D stage IV to 5 secondary to nephrosclerosis with baseline creatinine around 3.5-4 mg/dL. Renal function is currently close to baseline. Patient will be doing PD down the road 2. Volume overload currently maintained on IV Lasix which we can continue, dose is decreased. 3. Recent diagnosis of breast cancer currently maintained on chemotherapy 4. Diarrhea associated with chemotherapy maintained on Questran, improved 5. History of coronary artery disease status post coronary artery bypass surgery and coronary stent placement 6. Anemia multifactorial including underlying malignancy and chemotherapy and chronic kidney disease. No active bleeding noted Plan: Continue with oral Lasix Repeat labs in am Conitnue flomax Close follow-up as outpatient for CK D and initiation of PD down the road.
--- NOTE | 2022-06-06 12:55 | P.PN ---
Subjective Progress Note Date: 06/06/22 HISTORY OF PRESENT ILLNESS: This is a 71-year-old male with a past medical history significant for paroxysmal atrial fibrillation with previous ablation, coronary artery disease with three-vessel CABG in 2004, sick sinus syndrome, breast cancer on chemotherapy, hypertension, diabetes, and chronic kidney disease. Patient follows in the office with Dr. Turcios. We have been asked to see the patient in consultation for congestive heart failure. Patient examined at the bedside. Iron beltran reports she has been feeling short of breath for the past 4 days. He also reports some lower extremity edema. He denies any chest pain or pressure. He states he received his chemotherapy treatment about a week ago and has not been feeling very well since that time. The patient states he is taking his Eliquis 5 mg at night only because he cannot afford to take his Eliquis twice a day. Dis cussed importance of taking his Eliquis BID at home. * Telemetry reveals atrial fibrillation with controlled ventricular rate * Chest xray right pleural effusion with associated atelectasis. Mild car diomegaly. * Laboratory data: WBC 3.3. Hemoglobin 7.0. Platelet count 310. Sodium 141. Potassium 3.5. BUN 38. Creatinine 3.2. Troponin negative 3. ProBNP 1120. * Current home cardiac medications include Eliquis 5mg BID, amiodarone 100 mg daily, Lasix 80 mg daily, metoprolol succinate 25 mg daily, Pravachol 40 mg at night, Norvasc 5 mg daily, and hydralazine 75 mg twice a day * Most recent echocardiogram obtained in March 2021 revealed ejection fraction 50-55%, apical inferior and apical septal LV wall hypokinesis, mild aortic stenosis, mild MR, mild TR 06/04/2022 Patient examined this morning at the bedside. Patient denies chest pain or pressure. He denies shortness of breath. He continues to have lower extremity edema, although improving. He remains on IV Lasix 40 mg every 8 hours. Creatinine today 3.55. Nephrology is following. Echocardiogram completed revealing ejection fraction 55% with mild to moderate aortic stenosis. 06/05/2022 Patient examined this morning at the bedside. He denies chest pain or pressure. He denies SOB. He remains on IV lasix 40mg Q 12 hours. Creatinine today is 3.64. His lower extremity edema is improving. 06/06/2022 Patient examined this morning at the bedside. He denies chest pain or pressure. He reports having an episode of shortness of breath over night that resolved after the nurse applied oxygen. He denies shortness of breath this morning at rest but reports shortness of breath with exertion. Patient's creatinine today is 3.8. Nephrology has changed the patient's Lasix to 40 mg daily by mouth. Pulmonary has been consulted secondary to abnormal CT results. PHYSICAL EXAM: VITAL SIGNS: Reviewed. GENERAL: Well-developed in no acute distress. HEENT: Head is normocephalic. Pupils are equal, round. Sclerae anicteric. Mucous membranes of the mouth are moist. Neck supple. No JVD or thyromegaly LUNGS: Respirations even and unlabored. Lungs diminished to auscultation bilaterally. HEART: Irregular rate and rhythm. S1 and S2 heard. Systolic murmur noted ABDOMEN: Soft. Nondistended. Nontender. EXTREMITIES: Normal range of motion. No clubbing or cyanosis. Peripheral pulses intact. 1+ bilateral lower extremity edema NEUROLOGIC: Awake and alert. Oriented x 3. ASSESSMENT: Shortness of breath Acute on chronic heart failure with preserved ejection fraction Chronic kidney disease Paroxysmal atrial fibrillation Coronary artery disease with previous three-vessel CABG History of atrial fibrillation ablation History of breast cancer on chemotherapy Hypertension Hyperlipidemia Diabetes Anemia, s/p RBC transfusion PLAN: Continue current cardiac medications Patient is currently stable from a cardiology standpoint. No further inpatient recommendations. We will sign off. Please reconsult if needed. Nurse practitioner note has been reviewed by physician. Signing provider agrees with the documented findings, assessment, and plan of care. Objective - Vital Signs Vital signs: Vital Signs Temp 97.5 F L 06/06/22 08:00 Pulse 68 06/06/22 12:09 Resp 19 06/06/22 12:09 BP 143/80 06/06/22 08:00 Pulse Ox 96 06/06/22 08:00 FiO2 21 06/06/22 00:38 Intake & Output 06/05/22 06/06/22 06/06/22 18:59 06:59 18:59 Intake Total 660 Output Total 350 200 Balance 310 -200 Intake: Oral 660 Output: Urine 350 200 Other: Voiding Method Bedpan Urinal # Voids 2 1 # Bowel Movements 1 - Labs CBC & Chem 7: 06/06/22 08:40 06/06/22 08:40 Labs: Abnormal Lab Results - Last 24 Hours (Table) 06/05/22 06/06/22 06/06/22 Range/Units 20:10 07:16 08:40 WBC 3.7 L (3.8-10.6) k/uL RBC 2.31 L (4.30-5.90) m/uL Hgb 7.3 L (13.0-17.5) gm/dL Hct 23.9 L (39.0-53.0) % MCV 103.5 H (80.0-100.0) fL MCHC 30.3 L (31.0-37.0) g/dL RDW 20.1 H (11.5-15.5) % Macrocytosis Marked A Chloride (98-107) mmol/L BUN (9-20) mg/dL Creatinine (0.66-1.25) mg/dL Glucose (74-99) mg/dL POC Glucose (mg/dL) 204 H 138 H (70-110) mg/dL AST (17-59) U/L Total Protein (6.3-8.2) g/dL Albumin (3.5-5.0) g/dL 06/06/22 06/06/22 Range/Units 08:40 11:46 WBC (3.8-10.6) k/uL RBC (4.30-5.90) m/uL Hgb (13.0-17.5) gm/dL Hct (39.0-53.0) % MCV (80.0-100.0) fL MCHC (31.0-37.0) g/dL RDW (11.5-15.5) % Macrocytosis Chloride 108 H (98-107) mmol/L BUN 41 H (9-20) mg/dL Creatinine 3.81 H (0.66-1.25) mg/dL Glucose 154 H (74-99) mg/dL POC Glucose (mg/dL) 213 H (70-110) mg/dL AST 15 L (17-59) U/L Total Protein 4.8 L (6.3-8.2) g/dL Albumin 3.1 L (3.5-5.0) g/dL
--- NOTE | 2022-06-06 14:22 | P.CNPUL ---
History of Present Illness Consult date: 06/06/22 Reason for consult: dyspnea, abnormal CXR/CT History of present illness: 71-year-old male patient hospitalized for diarrhea, increased lower extremity edema along with some increased shortness of breath. The patient has multiple medical problems and comorbidities. The patient is currently receiving systemic chemotherapy for invasive moderately differentiated ductal carcinoma and the patient received his systemic chemotherapy approximately a week ago. No abdominal pain. No emesis. In the ED, the patient was found to have a white cell count 3.3 and the hemoglobin was 7.0. Platelet count was 310. This is an acute on top of chronic anemia. The patient is known to have chronic anemia as the patient has chronic stage for kidney disease and the patient also has coronary artery disease appears bypass surgery, previous coronary stenting, atrial fibrillation with previous ablation maintained on long-term medical condition with a request, diabetes mellitus type 2 with diabetic peripheral neuropathy, hypertension and hyperlipidemia. The patient during the course of illness was found to have a further drop in hemoglobin down to 6.1. The patient was given a 2 units RBC and the patient's hemoglobin came back at 7.3. Creatinine is stable at 3.81 with a mean of 41. Chest x-ray showed a right- sided pleural effusion/atelectasis and that is unchanged compared to the previous chest x-rays that date back to 2019. A computed tomography scan of the chest was also offered. The patient was found to have a chronic right-sided pleural effusion with pleural thickening. There is also adjacent consolidation of the lung and the right lung bases essentially atelectatic with some internal calcification. A small left-sided pleural effusion was also seen. This was compared to the earlier CAT scans from 2019 and the finding of the right lower lobe atelectasis and effusion was even present neck them. Compared to a recent PET/CT that was done for malignancy workup on 02/25/2022, findings are essentially unchanged and there is no metabolic activity within the right hemithorax indicating or supporting absence of malignancy within the right lung. Note that the masslike consolidation in the right lower lobe has foci of calcification posteriorly and is heterogeneous. The pleural effusion was present in 2019. There is some scarring and atelectasis in the right lung base. Patient is currently on room air oxygen with a pulse of 74%. While on 2 L, his pulse ox is at 96%. Review of Systems Constitutional: No documented fever, no chills, no night sweats. No weight change. positive for weakness, fatigue or lethargy. No daytime sleepiness. HEENT: No headache. No blurred vision or double vision, no loss of vision. No loss of Hearing, no ringing in the ears, no dizziness. No nasal drainage or congestion. No epistaxis. No sore throat. Lungs: positive for shortness of breath, no cough, no sputum production. No wheezing. Reports dyspnea with activity. Cardiovascular: No chest pain, reports lower extremity edema. No palpitations. No paroxysmal nocturnal dyspnea. Reports orthopnea. No lightheadedness or dizziness. No syncopal episodes. Abdominal: Reports no abdominal pain. No nausea, vomiting. Reports diarrhea. No constipation. No bloody or tarry stools reports loss of appetite. Genitourinary: No dysuria, increased frequency, urgency. No urinary retention. Musculoskeletal: No myalgias. positive for chronic left sided weakness, positive for gait dysfunction, no frequent falls. positive for back pain. positive for neck pain. Integumentary: No wounds, no lesions. No rash or pruritus. No unusual bruising. No change in hair or nails. Neurologic: No aphasia. No facial droop. No change in mentation. No head injury. No headache, positive for left sided weakness and left foot drop. Psychiatric: positive for depression. No anxiety. No mood swings. Endocrine: No abnormal blood sugars. No weight change. Past Medical History Past Medical History: Atrial Fibrillation, Atrial Flutter, Coronary Artery Disease (CAD), Cancer, Diabetes Mellitus, Deep Vein Thrombosis (DVT), Eye Disorder, GERD/Reflux, Hyperlipidemia, Hypertension, Myocardial Infarction (MS), Neurologic Disorder, Osteoarthritis (OA), Prostate Disorder, Sleep Apnea/CPAP/BIPAP Additional Past Medical History / Comment(s): Current right breast cancer. HX OF POLYPS, BLOOD IN STOOL, uti's. Hx tailbone fracture, neuropathy to feet. Blind in right eye. Hx encephalopathy, meningioma with left sided weakness, cannot use left leg, wheelcahir bound. PT CAN'T HAVE ANY VACCINES THAT ARE LIVE VIRUSES. PLEASE USE PAPER TAPE ONLY(PT HAS THIN SKIN). uses slide board at home to transfer pt to w/c, with 2 person assist pt can stand/pivot to chair. Last Myocardial Infarction Date:: 02-11-2005 History of Any Multi-Drug Resistant Organisms: None Reported Past Surgical History: Adenoidectomy, Cardiac Ablation, Cholecystectomy, Coronary Bypass/CABG, Heart Catheterization With Stent, Orthopedic Surgery, Tonsillectomy Additional Past Surgical History / Comment(s): Triple bypass, Meningioma Removed from Brain 04/2013, peg tube- removed 9 years ago, DESTINEY FILTER, BILATERAL CATARACTS- LENS IMPLANTS, COLONOSCOPY/POLYPECTOMY, RIGHT KNEE ARTHROSCOPY. Past Anesthesia/Blood Transfusion Reactions: No Reported Reaction Date of Last Stent Placement:: 2004 Past Psychological History: Depression Additional Psychological History / Comment(s): PT UNABLE TO AMBULATE BUT ABLE TO STAND WITH ASSIST OF 2 /PIVOT TO W/C OR MOTORIZED CHAIR. 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 Smoking Status: Never smoker Past Alcohol Use History: None Reported Past Drug Use History: None Reported - Past Family History Father History Unknown: Yes Family Medical History: Congestive Heart Failure (CHF) Mother History Unknown: Yes Additional Family Medical History / Comment(s): STILL ALIVE AT AGE 90 IN [facility] Medications and Allergies Home Medications Medication Instructions Recorded Confirmed Type Tamsulosin HCl [Flomax] 0.4 mg PO BID 06/19/15 06/03/22 History amLODIPine [Norvasc] 5 mg PO DAILY 07/09/16 06/03/22 History Apixaban [Eliquis] 5 mg PO BID 03/21/21 06/03/22 History Ferrous Sulfate [Iron (65 MG 325 mg PO DAILY 03/21/21 06/03/22 History Elemental)] INSULIN ASPART (NovoLOG) [NovoLOG 25 unit SQ AC-BID 03/21/21 06/03/22 History (formulary)] Pravastatin Sodium [Pravachol] 40 mg PO HS 03/21/21 06/03/22 History allopurinoL [Zyloprim] 100 mg PO DAILY 03/21/21 06/03/22 History hydrALAZINE HCL [Apresoline] 75 mg PO BID 03/21/21 06/03/22 History Cholecalciferol [Vitamin D3 (25 25 mcg PO DAILY 01/13/22 06/03/22 History Mcg = 1000 Iu)] Amiodarone [Cordarone] 100 mg PO DAILY 02/07/22 06/03/22 History Folic Acid 0.8 mg PO DAILY 02/07/22 06/03/22 History Furosemide [Lasix] 80 mg PO DAILY 02/07/22 06/03/22 History Metoprolol Succinate (ER) [Toprol 25 mg PO DAILY 02/07/22 06/03/22 History XL] Cholestyramine (with Sugar) 4 gm PO BID 06/03/22 06/03/22 History [Questran] Diphenoxylate HCl/Atropine 1 tab PO DAILY 06/03/22 06/03/22 History [Lomotil 2.5-0.025 mg Tablet] Insulin Glargine,Hum.rec.anlog 36 units SQ HS 06/03/22 06/03/22 History [Lantus Solostar Pen] Lidocaine-Prilocaine Cream [Emla 1 applic TOPICAL DAILY PRN 06/03/22 06/03/22 History Cream 2.5%/2.5%] calcitrioL [Calcitriol] 0.25 mcg PO MO 06/03/22 06/03/22 History Allergies Allergy/AdvReac Type Severity Reaction Status Date / Time Penicillins Allergy Unknown Rash/Hives Verified 06/03/22 09:13 adhesive AdvReac skin tears Verified 06/03/22 09:13 Physical Exam Vitals: Vital Signs Temp Pulse Resp BP Pulse Ox FiO2 06/06/22 12:09 68 19 06/06/22 12:00 97.9 F 68 18 134/64 94 L 06/06/22 08:00 97.5 F L 68 19 143/80 96 06/06/22 04:00 97.5 F L 69 19 176/78 98 06/06/22 00:38 21 06/06/22 00:00 69 18 167/78 97 06/05/22 20:00 97.7 F 72 19 166/77 94 L 06/05/22 15:52 97.4 F L 65 18 129/80 96 Intake and Output 06/05/22 06/06/22 06/06/22 22:59 06:59 14:59 Intake Total 180 Output Total 200 Balance 180 -200 Intake: Oral 180 Output: Urine 200 Other: # Voids 2 1 # Bowel Movements 1 Weight 106.594 kg Gen. appearance the patient is calm and comfortable no acute distress on 2 L about 2 by nasal cannula. Head exam was generally normal. There was no scleral icterus or corneal arcus. Mucous membranes were moist. Neck was supple and without jugular venous distension, thyromegaly, or carotid bruits. Carotids were easily palpable bilaterally. There was no adenopathy. Lungs sounds are diminished in the right lung base. The patient also has an anterior scar over the right anterior chest related to a Mediport. Cardiac exam revealed the PMI to be normally situated and sized. The rhythm was irregular and no extrasystoles were noted during several minutes of auscultation. The first and second heart sounds were normal and physiologic splitting of the second heart sound was noted. There were grade 2 murmurs, rubs, clicks, or gallops. Abdominal exam revealed normal bowel sounds. The abdomen was soft, non-tender, and without masses, organomegaly, or appreciable enlargement of the abdominal aorta. Examination of the extremities revealed easily palpable radial, femoral and pedal pulses. There was no cyanosis, clubbing or Edema Lower Extremity Is Bilaterally. Examination of the skin revealed no evidence of significant rashes, suspicious appearing nevi or other concerning lesions. Results - Laboratory Findings CBC and BMP: 06/06/22 08:40 06/06/22 08:40 PT/INR, D-dimer PT 11.4 sec (9.0-12.0) 06/02/22 19:33 INR 1.1 (<1.2) 06/02/22 19:33 Abnormal lab findings: Abnormal Labs 06/02/22 06/02/22 06/02/22 19:33 19:33 23:37 WBC 3.3 L RBC 2.13 L Hgb 7.0 L Hct 21.6 L MCV 101.4 H MCHC RDW 19.3 H Lymphocytes # 0.3 L Macrocytosis Potassium Chloride 108 H Carbon Dioxide 20 L BUN 38 H Creatinine 3.20 H Glucose 216 H POC Glucose (mg/dL) 249 H Phosphorus Iron % Saturation AST Total Protein 5.5 L Albumin Crossmatch 06/03/22 06/03/22 06/03/22 01:09 06:20 11:44 WBC RBC Hgb Hct MCV MCHC RDW Lymphocytes # Macrocytosis Potassium Chloride Carbon Dioxide BUN Creatinine Glucose POC Glucose (mg/dL) 165 H 192 H Phosphorus 2.1 L Iron 27 L % Saturation 8.37 L AST Total Protein Albumin Crossmatch 06/03/22 06/03/22 06/04/22 16:48 19:43 06:04 WBC RBC Hgb Hct MCV MCHC RDW Lymphocytes # Macrocytosis Potassium Chloride Carbon Dioxide BUN Creatinine Glucose POC Glucose (mg/dL) 217 H 165 H 116 H Phosphorus Iron % Saturation AST Total Protein Albumin Crossmatch 06/04/22 06/04/22 06/04/22 08:32 08:32 10:59 WBC 2.9 L RBC 1.85 L Hgb 6.1 L* Hct 18.9 L* MCV 102.1 H MCHC RDW 19.3 H Lymphocytes # 0.3 L Macrocytosis Potassium 3.1 L Chloride 108 H Carbon Dioxide BUN 39 H Creatinine 3.55 H Glucose 104 H POC Glucose (mg/dL) Phosphorus Iron % Saturation AST 15 L Total Protein 4.7 L Albumin 2.9 L Crossmatch See Detail 06/04/22 06/04/22 06/04/22 11:54 16:42 20:17 WBC RBC Hgb Hct MCV MCHC RDW Lymphocytes # Macrocytosis Potassium Chloride Carbon Dioxide BUN Creatinine Glucose POC Glucose (mg/dL) 139 H 203 H 156 H Phosphorus Iron % Saturation AST Total Protein Albumin Crossmatch 06/05/22 06/05/22 06/05/22 07:47 08:49 08:49 WBC 3.6 L RBC 2.34 L Hgb 7.4 L Hct 23.4 L MCV MCHC RDW 19.6 H Lymphocytes # Macrocytosis Potassium Chloride Carbon Dioxide BUN 40 H Creatinine 3.64 H Glucose 121 H POC Glucose (mg/dL) 119 H Phosphorus Iron % Saturation AST 16 L Total Protein 4.8 L Albumin 3.1 L Crossmatch 06/05/22 06/05/22 06/06/22 12:13 20:10 07:16 WBC RBC Hgb Hct MCV MCHC RDW Lymphocytes # Macrocytosis Potassium Chloride Carbon Dioxide BUN Creatinine Glucose POC Glucose (mg/dL) 150 H 204 H 138 H Phosphorus Iron % Saturation AST Total Protein Albumin Crossmatch 06/06/22 06/06/22 06/06/22 08:40 08:40 11:46 WBC 3.7 L RBC 2.31 L Hgb 7.3 L Hct 23.9 L MCV 103.5 H MCHC 30.3 L RDW 20.1 H Lymphocytes # Macrocytosis Marked A Potassium Chloride 108 H Carbon Dioxide BUN 41 H Creatinine 3.81 H Glucose 154 H POC Glucose (mg/dL) 213 H Phosphorus Iron % Saturation AST 15 L Total Protein 4.8 L Albumin 3.1 L Crossmatch - Diagnostic Findings Chest x-ray: image reviewed CT scan - chest: image reviewed Assessment and Plan Plan: Dyspnea, acute on chronic. 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 Based on all this, and based on my comparison that was done with earlier CAT scans and PET CT, the findings of the right lung are essentially chronic. Acute decompensated shortness of breath occurred because of a drop in hemoglobin development of a worsening anemia and systemic chemotherapy and dehydration and diarrhea. There may be also a component of diastolic heart failure. Coronary artery disease presents bypass surgery and previous coronary stenting Stage IV chronic kidney disease Hypertension Hyperlipidemia Diabetes mellitus type 2 with diabetic peripheral neuropathy Paroxysmal atrial fibrillation maintained on long-term medical condition with a request Breast cancer, moderately differentiated ductal carcinoma, being treated with systemic chemotherapy and this will be a neoadjuvant chemotherapy to be followed by surgical resection. BPH Previous history of DVT and the patient is on antibiotic ventilation with ad equate sputum sample the patient has an IVC filter in place Gout History of meningioma with some residual left-sided weakness, post resection of a meningioma Gait dysfunction Bicytopenia related to systemic chemotherapy Osteoarthritis Acid reflux Diabetic peripheral neuropathy Plan I elected discussion with the patient and explained to him because of dyspnea The right lung findings are essentially chronic and the patient would not benefit from any interventions such as thoracentesis. This is an area of chronic right-sided pleural effusion, could be parapneumonic yet areas quite loculated and pleuritis thickened and the adjacent lung is atelectatic and calcified. As such it is very unlikely for this right lung to reexpand if any interventions done. No intervention is recommended this point in time. monitor hemoglobin and keep the hemoglobin above 7 Monitor renal function Diarrhea management per medicine We'll continue to follow.
[2022-06-06 16:25] LABS: Glucose,Whole Blood 118 mg/dL (70-110)
[2022-06-06 16:46] VITALS: RESP 18
[2022-06-06 20:16] LABS: Glucose,Whole Blood 151 mg/dL (70-110)
[2022-06-06] MEDS: INSULIN DETEMIR (LEVEMIR) 100 UNIT/ML SYR SQ SCH (21:24)
[2022-06-06] MEDS: MELATONIN 3 MG TABLET PO SCH (21:24)
[2022-06-06] MEDS: PRAVASTATIN SODIUM 40 MG TAB PO SCH (21:24)
[2022-06-07 07:18] LABS: Glucose,Whole Blood 140 mg/dL (70-110)
[2022-06-07] MEDS: INSULIN ASPART (NovoLOG) 100 UNIT/ML VIAL SQ SCH ×3 (07:39→12:36)
--- NOTE | 2022-06-07 08:36 | P.DS ---
Providers Date of admission: 06/02/22 22:17 Expected date of discharge: 06/07/22 Attending physician: Pablo Jon Consults: 06/03/22 08:30 Consult Physician Routine Consulting Provider: Yin Campos Consult Reason/Comments: CKD Do you want consulting provider notified?: Yes 06/03/22 08:49 Consult Physician Routine Consulting Provider: Armando Cameron Consult Reason/Comments: breast ca Do you want consulting provider notified?: Yes 06/06/22 08:29 Consult Physician Routine Consulting Provider: Megha Meyer Consult Reason/Comments: CT results empyema, pl effusion Do you want consulting provider notified?: Yes Primary care physician: Pablo Jon [facility] Course: HISTORY OF PRESENT ILLNESS: This is a 71-year-old male with a previous medical history significant for hypertension and hypertensive cardiovascular disease with left ventricular hypertrophy, hyperlipidemia, diabetes mellitus type 2, with diabetic polyneuropathy, history of coronary artery disease status post coronary artery bypass graft x3 followed by stent, history of atrial fibrillation status post ablation on long-term eliquis, history of meningioma status post resection back in April 2013 with left-sided weakness, history of chronic kidney disease stage IV currently under the care of nephrology with plan for CAPD at later date, history of anemia of chronic kidney disease, history of secondary hyperparathyroidism. Patient also has history of newly diagnosed breast cancer on the right side status post biopsy which revealed invasive moderately differentiated ductal carcinoma status post chemotherapy 10 treatments out of 12 completed as of one week ago today. Plan is for radiation therapy following and then surgical intervention. Patient is complaining of diarrhea which she states does not stop. He is on Questran and Lomotil. He states yesterday it was significantly worse. He states the diarrhea is watery and he has incontinence. Patient also developed edema to the lower extremities left greater than right for the past week along with shortness of breath and orthopnea. Regarding renal failure, patient follows with Dr. Campos and there is plan for CAPD once his cancer treatment is completed. He is making urine. Patient does complain of difficulty sleeping. Patient came into [facility] emergency center for evaluation. He was found to be afebrile, heart rate 80, blood pressure 114/62, pulse ox 97% on room air. WBC 3.3, hemoglobin 7, platelet count 310. INR 1.1. Sodium 141, potassium 3.5, chloride 108, CO2 20, BUN 38 creatinine 3.2. Glucose 216. Liver function tests normal. Troponin negative on 3 draws. Albumin 3.5. ProBNP 1120. Chest x-ray reveals right pleural effusion with associated atelectasis. Overall not significant change from 03/03/2022. Mild cardiomegaly. [id number] within the superior vena cava. Patient was admitted to the cardiac stepdown unit and cardiology consult and nephrology consult ordered. Will add in consult for oncology, patient's oncologist is Dr. Cameron. He has been started on Lasix 40 mg IV push every 8 hours. 06/04: Patient has been seen by cardiology and echocardiogram was resumed on home medications and continued on IV Lasix but decreased frequency today at every 12 hours. Nephrology is recommended iron studies, added Aranesp and check phosphorus level monitor urine output. Patient has been seen by oncology and may consider CAT scan of the chest to rule out drug-induced pneumonitis. Patient has been afebrile, heart rate 75, blood pressure 123/59, pulse ox 97% on room air, patient utilize CPAP at night. Capillary blood glucose running between 116 and 217. Phosphorus 2.1. Iron 27, TIBC 326, iron saturation 8.37%, transferrin 233. WBC 2.9, hemoglobin 6.1, platelet count 277. Sodium 140, potassium 3.1, chloride 108, CO2 23, BUN 39 and creatinine 3.55. Potassium replaced and patient ordered for 1 unit of packed RBCs. Patient states that his breathing is better from yesterday. He denies any cough or sputum production. Patient's states that he has had black stools for some time. Discuss possibility of adding Dr. Valdes for further evaluation of GI bleed but will hold off now and recheck hemoglobin in the morning. Echocardiogram reveals EF of 50-55%, mildly increased left ventricular wall thickness. Mild mitral regurgitation, mild to moderate aortic stenosis with peak gradient of 28 mmHg and mean gradient of 16 mmHg 06/05: Patient continues to feel better each day. He states he slept well last night. He was able to tolerate his diet and is eating okay without nausea or vomiting. He has not had a bowel movement today. He denies having any fever or chills. He denies any cough. Nephrology has changed IV Lasix to oral 40 mg daily, plan on outpatient follow-up and initiation of PD down the road. Eliquis was discontinued yesterday. patient remains on Aranesp weekly, he will complete Ferrlecit 125 mg daily 2 today. Oncology has cleared the patient for discharge tomorrow. Repeat blood work reveals WBC 3.6, hemoglobin 7.4, platelet count 256. Electrolytes normal. BUN 40 creatinine 3.64. Capillary blood glucose running between 119 and 156.Repeat blood work ordered for the morning. Patient has been afebrile, heart rate 60s, blood pressure 119/57, pulse ox 95% on room air. CAT scan of the chest without contrast ordered by oncology reveals a right empyema which is similar to prior PET scan 02/21. Consolidation changes within the right lung base felt to be similar to prior PET scan. Trace left pleural effusion. Pulmonary hypertension. Cardiomegaly with CABG changes. Mild dominantly right-sided pulmonary vascular congestion. 06/06: Patient states that last night he had trouble with his diaphragm spasming for about 4 hours and causing him some shortness of breath. This has resolved at the time of evaluation. He is not on home oxygen therapy. He states that he has never seen an lung/pulmonary doctor in the past. Due to results of the CAT scan, we will ask for pulmonary medicine to take a look at him today. Patient is afebrile, heart rate 69, blood pressure 176/78, pulse ox 90% on 2 L nasal cannula. Repeat blood work reveals WBC 3.7, Hemoccult 7.3, platelet count 273. Sodium 140, potassium 3.8, chloride 108, CO2 22, BUN 41 creatinine 3.81. Blood sugars are running between 110 and 204. Plan to monitor patient overnight and discharged home tomorrow. Discharge diagnoses: 1. Acute diastolic heart failure with right pleural effusion. 2. Right-sided breast cancer status post chemotherapy 06/25 treatments. 3. Diarrhea secondary to chemotherapy. 4. Right pleural effusion with atelectasis. 5. Bicytopenia secondary to chemotherapy. 6. Anemia with possible component of acute blood loss and chronic GI bleed. 7. History of CAD post CABG as well as PCI and stent placement. 8. History of paroxysmal atrial fibrillation. 9. Hypertension and hypertensive cardiovascular disease. 10. Hyperlipidemia. 11. Chronic kidney disease stage IV. 12. History of enlarged prostate. 13. Diabetes mellitus type 2. 14. Diabetic polyneuropathy. 15. History of DVT status post IVC filter placement 16. history of gout. 17. History of meningioma with left-sided weakness Patient Condition at Discharge: Serious Plan - Discharge Summary Discharge Rx Participant: No New Discharge Prescriptions: No Action Tamsulosin HCl [Flomax] 0.4 mg PO BID amLODIPine [Norvasc] 5 mg PO DAILY hydrALAZINE HCL [Apresoline] 75 mg PO BID Ferrous Sulfate [Iron (65 MG Elemental)] 325 mg PO DAILY Apixaban [Eliquis] 5 mg PO BID Pravastatin Sodium [Pravachol] 40 mg PO HS INSULIN ASPART (NovoLOG) [NovoLOG (formulary)] 25 unit SQ AC-BID allopurinoL [Zyloprim] 100 mg PO DAILY Amiodarone [Cordarone] 100 mg PO DAILY Folic Acid 0.8 mg PO DAILY Furosemide [Lasix] 80 mg PO DAILY Cholestyramine (with Sugar) [Questran] 4 gm PO BID Insulin Glargine,Hum.rec.anlog [Lantus Solostar Pen] 36 units SQ HS Lidocaine-Prilocaine Cream [Emla Cream 2.5%/2.5%] 1 applic TOPICAL DAILY PRN PRN Reason: port access Cholecalciferol [Vitamin D3 (25 Mcg = 1000 Iu)] 25 mcg PO DAILY Metoprolol Succinate (ER) [Toprol XL] 25 mg PO DAILY calcitrioL [Calcitriol] 0.25 mcg PO MO Diphenoxylate HCl/Atropine [Lomotil 2.5-0.025 mg Tablet] 1 tab PO DAILY Discharge Medication List Tamsulosin HCl [Flomax] 0.4 mg PO BID 06/19/15 [History] amLODIPine [Norvasc] 5 mg PO DAILY 07/09/16 [History] Apixaban [Eliquis] 5 mg PO BID 03/21/21 [History] Ferrous Sulfate [Iron (65 MG Elemental)] 325 mg PO DAILY 03/21/21 [History] INSULIN ASPART (NovoLOG) [NovoLOG (formulary)] 25 unit SQ AC-BID 03/21/21 [History] Pravastatin Sodium [Pravachol] 40 mg PO HS 03/21/21 [History] allopurinoL [Zyloprim] 100 mg PO DAILY 03/21/21 [History] hydrALAZINE HCL [Apresoline] 75 mg PO BID 03/21/21 [History] Cholecalciferol [Vitamin D3 (25 Mcg = 1000 Iu)] 25 mcg PO DAILY 01/13/22 [History] Amiodarone [Cordarone] 100 mg PO DAILY 02/07/22 [History] Folic Acid 0.8 mg PO DAILY 02/07/22 [History] Furosemide [Lasix] 80 mg PO DAILY 02/07/22 [History] Metoprolol Succinate (ER) [Toprol XL] 25 mg PO DAILY 02/07/22 [History] Cholestyramine (with Sugar) [Questran] 4 gm PO BID 06/03/22 [History] Diphenoxylate HCl/Atropine [Lomotil 2.5-0.025 mg Tablet] 1 tab PO DAILY 06/03/22 [History] Insulin Glargine,Hum.rec.anlog [Lantus Solostar Pen] 36 units SQ HS 06/03/22 [History] Lidocaine-Prilocaine Cream [Emla Cream 2.5%/2.5%] 1 applic TOPICAL DAILY PRN 06/03/22 [History] calcitrioL [Calcitriol] 0.25 mcg PO MO 06/03/22 [History] Follow up Appointment(s)/Referral(s): Yin Campos MD [STAFF PHYSICIAN] - 2 Weeks Thuy Pablo MD [STAFF PHYSICIAN] - 2 Weeks Pablo Jon MD [Primary Care Provider] - 1 Week Armando Cameron MD [STAFF PHYSICIAN] - 06/11/22 9:45 am Discharge Disposition: HOME SELF-CARE
[2022-06-07 08:42] VITALS: TEMP 97.6
[2022-06-07] MEDS: POTASSIUM CHLORIDE ER 20 MEQ TAB.ER PO SCH (08:43)
[2022-06-07] MEDS: FERROUS SULFATE 325 MG TAB PO SCH (08:43)
[2022-06-07] MEDS: CHOLECALCIFEROL 25 MCG (1000 IU) TABLET PO SCH (08:43)
[2022-06-07] MEDS: hydrALAZINE HCL 25 MG TAB PO SCH (08:43)
[2022-06-07] MEDS: TAMSULOSIN 0.4 MG CAP.ER.24H PO SCH (08:43)
[2022-06-07] MEDS: FUROSEMIDE 40 MG TAB PO SCH (08:43)
[2022-06-07] MEDS: allopurinoL 100 MG TAB PO SCH (08:43)
[2022-06-07] MEDS: FAMOTIDINE 20 MG TAB PO SCH (08:43)
[2022-06-07] MEDS: amLODIPine 5 MG TAB PO SCH (08:43)
[2022-06-07] MEDS: METOPROLOL SUCCINATE (ER) 25 MG TAB.ER.24H PO SCH (08:43)
[2022-06-07] MEDS: AMIODARONE 100 MG TAB PO SCH (08:43)
[2022-06-07] MEDS: DIPHENOX-ATROP 2.5-0.025 MG 1 EACH TAB PO SCH (08:43)
[2022-06-07] MEDS: FOLIC ACID 1 MG TAB PO SCH (08:43)
[2022-06-07 09:54] LABS: Anisocytosis Slight; HCT 23.9 % (39.0-53.0); HGB 7.5 gm/dL (13.0-17.5); Hypochromasia Marked; MCH 32.1 pg (25.0-35.0); MCHC 31.4 g/dL (31.0-37.0); MCV 102.2 fL (80.0-100.0); Macrocytosis Moderate; Mean Platelet Volume 7.4; Platelet Count 255 k/uL (150-450); Poikilocytosis Moderate; RBC 2.33 m/uL (4.30-5.90); RDW 19.9 % (11.5-15.5); WBC 3.7 k/uL (3.8-10.6)
[2022-06-07 10:07] LABS: Albumin 3.2 g/dL (3.5-5.0); Calcium 9.3 mg/dL (8.4-10.2); Potassium 3.8 mmol/L (3.5-5.1); Total Bilirubin 0.4 mg/dL (0.2-1.3)
--- NOTE | 2022-06-07 10:54 | P.PN ---
Subjective Patient is seen in follow-up for chronic kidney disease. Blood pressure stable. Has been voiding. Denies chest pain or shortness of breath. Oral intake is fair. Vital signs are stable. General: Awake. No acute distress. HEENT: Head exam is unremarkable. LUNGS: Breath sounds decreased. HEART: Rate and Rhythm are regular. ABDOMEN: Soft, no distention. EXTREMITITES: 1+ edema. Objective - Vital Signs Vital signs: Vital Signs Temp 97.6 F 06/07/22 08:00 Pulse 77 06/07/22 08:00 Resp 18 06/07/22 08:00 BP 132/66 06/07/22 08:00 Pulse Ox 94 L 06/07/22 08:00 FiO2 21 06/06/22 20:27 Intake & Output 06/06/22 06/07/22 06/07/22 18:59 06:59 18:59 Intake Total 180 118 Balance 180 118 Weight 106.594 kg Intake: Oral 180 118 Other: Voiding Method Bedpan Urinal # Voids 1 # Bowel Movements 1 - Labs CBC & Chem 7: 06/07/22 09:19 06/07/22 09:19 Labs: Abnormal Lab Results - Last 24 Hours (Table) 06/06/22 06/06/22 06/06/22 Range/Units 11:46 16:23 20:15 WBC (3.8-10.6) k/uL RBC (4.30-5.90) m/uL Hgb (13.0-17.5) gm/dL Hct (39.0-53.0) % MCV (80.0-100.0) fL RDW (11.5-15.5) % Carbon Dioxide (22-30) mmol/L BUN (9-20) mg/dL Creatinine (0.66-1.25) mg/dL Glucose (74-99) mg/dL POC Glucose (mg/dL) 213 H 118 H 151 H (70-110) mg/dL AST (17-59) U/L Total Protein (6.3-8.2) g/dL Albumin (3.5-5.0) g/dL 06/07/22 06/07/22 06/07/22 Range/Units 07:14 09:19 09:19 WBC 3.7 L (3.8-10.6) k/uL RBC 2.33 L (4.30-5.90) m/uL Hgb 7.5 L (13.0-17.5) gm/dL Hct 23.9 L (39.0-53.0) % MCV 102.2 H (80.0-100.0) fL RDW 19.9 H (11.5-15.5) % Carbon Dioxide 21 L (22-30) mmol/L BUN 43 H (9-20) mg/dL Creatinine 4.09 H (0.66-1.25) mg/dL Glucose 171 H (74-99) mg/dL POC Glucose (mg/dL) 140 H (70-110) mg/dL AST 14 L (17-59) U/L Total Protein 5.0 L (6.3-8.2) g/dL Albumin 3.2 L (3.5-5.0) g/dL Assessment and Plan Plan: Assessment: 1. Chronic kidney disease stage IV/5 secondary to nephrosclerosis and diabetic kidney disease with baseline creatinine 3.5-4. Patient follows outpatient and prefers to do PD when renal replacement therapy is needed. 2. Volume overload. On oral Lasix. 3. Breast cancer maintain and chemotherapy. 4. Diarrhea. Improved. 5. History of coronary disease status post bypass and stenting. 6. Anemia related to chronic kidney disease and malignancy/chemotherapy. No active bleeding. On Aranesp. 7. Hypertension with chronic any disease. Controlled. 8. Diabetes mellitus. Plan: Maintain oral Lasix. Avoid nephrotoxins. Repeat BMP and magnesium level 2-3 days postdischarge. Follow-up outpatient 1 week post discharge.
[2022-06-07 12:23] VITALS: BP 141/67; PULSE 71
[2022-06-07 12:23] LABS: Glucose,Whole Blood 154 mg/dL (70-110)
--- NOTE | 2022-06-07 13:30 | P.PN ---
Subjective Progress Note Date: 06/07/22 On today's evaluation, the patient's overall respiratory status is stable, and the patient remains on 2 L of oxygen with a pulse ox of 98%. Pulse ox on room air is around 9094%. The patient has been transfused. Hemoglobin is stable at 7.5. Renal function continues to be. With a BMI of 43 and a creatinine of 1.09. The rest of the electrolytes are all within normal limits. The patient will likely be discharged home today. Hemoglobin is at 7.5. Objective - Vital Signs Vital signs: Vital Signs Temp 97.6 F 06/07/22 08:00 Pulse 71 06/07/22 12:00 Resp 18 06/07/22 12:00 BP 141/67 06/07/22 12:00 Pulse Ox 90 L 06/07/22 12:00 FiO2 21 06/06/22 20:27 Intake & Output 06/06/22 06/07/22 06/07/22 18:59 06:59 18:59 Intake Total 180 356 Balance 180 356 Weight 106.594 kg Intake: Oral 180 356 Other: Voiding Method Bedpan Urinal # Voids 1 # Bowel Movements 1 - Exam Gen. appearance the patient is calm and comfortable no acute distress on 2 L oxygen nasal cannula Head exam was generally normal. There was no scleral icterus or corneal arcus. Mucous membranes were moist. Neck was supple and without jugular venous distension, thyromegaly, or carotid bruits. Carotids were easily palpable bilaterally. There was no adenopathy. Lungs sounds are diminished in the right lung base. The patient also has an anterior scar over the right anterior chest related to a Mediport. Cardiac exam revealed the PMI to be normally situated and sized. The rhythm was irregular and no extrasystoles were noted during several minutes of ausc ultation. The first and second heart sounds were normal and physiologic splitting of the second heart sound was noted. There were grade 2 murmurs, rubs, clicks, or gallops. Abdominal exam revealed normal bowel sounds. The abdomen was soft, non-tender, and without masses, organomegaly, or appreciable enlargement of the abdominal aorta. Examination of the extremities revealed easily palpable radial, femoral and pedal pulses. There was no cyanosis, clubbing or Edema Lower Extremity Is Bilaterally. Examination of the skin revealed no evidence of significant rashes, suspicious appearing nevi or other concerning lesions. - Labs CBC & Chem 7: 06/07/22 09:19 06/07/22 09:19 Labs: Abnormal Lab Results - Last 24 Hours (Table) 06/06/22 06/06/22 06/07/22 Range/Units 16:23 20:15 07:14 WBC (3.8-10.6) k/uL RBC (4.30-5.90) m/uL Hgb (13.0-17.5) gm/dL Hct (39.0-53.0) % MCV (80.0-100.0) fL RDW (11.5-15.5) % Carbon Dioxide (22-30) mmol/L BUN (9-20) mg/dL Creatinine (0.66-1.25) mg/dL Glucose (74-99) mg/dL POC Glucose (mg/dL) 118 H 151 H 140 H (70-110) mg/dL AST (17-59) U/L Total Protein (6.3-8.2) g/dL Albumin (3.5-5.0) g/dL 06/07/22 06/07/22 06/07/22 Range/Units 09:19 09:19 12:12 WBC 3.7 L (3.8-10.6) k/uL RBC 2.33 L (4.30-5.90) m/uL Hgb 7.5 L (13.0-17.5) gm/dL Hct 23.9 L (39.0-53.0) % MCV 102.2 H (80.0-100.0) fL RDW 19.9 H (11.5-15.5) % Carbon Dioxide 21 L (22-30) mmol/L BUN 43 H (9-20) mg/dL Creatinine 4.09 H (0.66-1.25) mg/dL Glucose 171 H (74-99) mg/dL POC Glucose (mg/dL) 154 H (70-110) mg/dL AST 14 L (17-59) U/L Total Protein 5.0 L (6.3-8.2) g/dL Albumin 3.2 L (3.5-5.0) g/dL Assessment and Plan Plan: Dyspnea, acute on chronic. 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 Based on all this, and based on my comparison that was done with earlier CAT scans and PET CT, the findings of the right lung are essentially chronic. Acute decompensated shortness of breath occurred because of a drop in hemoglobin development of a worsening anemia and systemic chemotherapy and dehydration and diarrhea. There may be also a component of diastolic heart failure. Coronary artery disease presents bypass surgery and previous coronary stenting Stage IV chronic kidney disease Hypertension Hyperlipidemia Diabetes mellitus type 2 with diabetic peripheral neuropathy Paroxysmal atrial fibrillation maintained on long-term medical condition with a request Breast cancer, moderately differentiated ductal carcinoma, being treated with systemic chemotherapy and this will be a neoadjuvant chemotherapy to be followed by surgical resection. BPH Previous history of DVT and the patient is on antibiotic ventilation with adequate sputum sample the patient has an IVC filter in place Gout History of meningioma with some residual left-sided weakness, post resection of a meningioma Gait dysfunction Bicytopenia related to systemic chemotherapy Osteoarthritis Acid reflux Diabetic peripheral neuropathy Plan No significant change the patient's condition Pulmonary status is stable I already had a discussion with the patient and explained to him because of dyspnea The right lung findings are essentially chronic and the patient would not benefit from any interventions such as thoracentesis. This is an area of chronic right-sided pleural effusion, could be parapneumonic yet areas quite loculated and pleuritis thickened and the adjacent lung is atelectatic and calcified. As such it is very unlikely for this right lung to reexpand if any interventions done. No intervention is recommended this point in time. monitor hemoglobin and keep the hemoglobin above 7 Monitor renal function Diarrhea management per medicine Oxygenation is stable Possible home today. Continue oral Lasix.
[2022-06-08] MEDS ORDERED: CHOLECALCIFEROL 25 MCG (1000 IU) TABLET PO SCH (09:00)
== END 2022-06-07 16:04 | disposition home or self-care (01) | DRG 291 ==
LOC: EC 16:32 → 3SCARD 22:17
PROVIDERS: ADMIT Internal Medicine; ATTEND Internal Medicine
PROC: 30233N1 Transfusion of Nonautologous Red Blood Cells into Peripheral Vein, Percutaneous Approach (ICD-10-PCS; principal; 2022-06-04)
DX: I13.0 Hypertensive heart and chronic kidney disease with heart failure and stage 1 through stage 4 chronic kidney disease, or unspecified chronic kidney disease (principal); I50.33 Acute on chronic diastolic (congestive) heart failure; J86.9 Pyothorax without fistula; N17.9 Acute kidney failure, unspecified; D62 Acute posthemorrhagic anemia; K52.1 Toxic gastroenteritis and colitis; K92.2 Gastrointestinal hemorrhage, unspecified; N18.4 Chronic kidney disease, stage 4 (severe); N25.81 Secondary hyperparathyroidism of renal origin; J98.11 Atelectasis; I27.20 Pulmonary hypertension, unspecified; D63.1 Anemia in chronic kidney disease; J98.6 Disorders of diaphragm; E86.0 Dehydration; C50.921 Malignant neoplasm of unspecified site of right male breast; E11.22 Type 2 diabetes mellitus with diabetic chronic kidney disease; E11.42 Type 2 diabetes mellitus with diabetic polyneuropathy; I48.0 Paroxysmal atrial fibrillation; Z79.4 Long term (current) use of insulin; Z28.310 Unvaccinated for COVID-19; I25.10 Atherosclerotic heart disease of native coronary artery without angina pectoris; I25.2 Old myocardial infarction; K21.9 Gastro-esophageal reflux disease without esophagitis; H54.61 Unqualified visual loss, right eye, normal vision left eye; E78.5 Hyperlipidemia, unspecified; N40.0 Benign prostatic hyperplasia without lower urinary tract symptoms; T45.1X5A Adverse effect of antineoplastic and immunosuppressive drugs, initial encounter; I08.0 Rheumatic disorders of both mitral and aortic valves; M21.372 Foot drop, left foot; G47.30 Sleep apnea, unspecified; M19.90 Unspecified osteoarthritis, unspecified site; M10.9 Gout, unspecified; F32.A Depression, unspecified; R26.9 Unspecified abnormalities of gait and mobility; E66.9 Obesity, unspecified; Z68.32 Body mass index [BMI] 32.0-32.9, adult; Z79.01 Long term (current) use of anticoagulants; Z79.899 Other long term (current) drug therapy; Z86.011 Personal history of benign neoplasm of the brain; Z86.718 Personal history of other venous thrombosis and embolism; Z87.440 Personal history of urinary (tract) infections; Z95.1 Presence of aortocoronary bypass graft; Z95.5 Presence of coronary angioplasty implant and graft; Z95.828 Presence of other vascular implants and grafts; Z99.3 Dependence on wheelchair; Z71.3 Dietary counseling and surveillance; Z88.0 Allergy status to penicillin; Z91.048 Other nonmedicinal substance allergy status; Z82.49 Family history of ischemic heart disease and other diseases of the circulatory system
CPT/HCPCS: 36415; 71046; 71250; 76770; 80053; 83036; 83540; 83550; 83880; 84100; 84484; 85025; 85027; 85610; 85730; 86850; 86900; 86901; 86920; 93005; 93306; 96374; 99285

== ENCOUNTER → 2022-07-03 | Outpatient (CLI) | payer MEDICARE ==
--- NOTE | 2022-07-03 15:04 | XR ---
EXAMINATION TYPE: XR chest 2V DATE OF EXAM: 07/03/2022 2:56 PM COMPARISON: Chest radiographs from 06/02/2022, CT chest 06/04/2022 TECHNIQUE: XR chest 2V Frontal and lateral views of the chest. CLINICAL INDICATION:Male, 72 years old with history of I50.32 CHRONIC DIASTOLIC (CONGESTIVE) HEART FA ILUR; FINDINGS: Lungs/Pleura: Similar small to moderate sized layering right pleural effusion. No pneumothorax. Blunt ing of the left costophrenic angle consistent with a trace left pleural effusion. Pulmonary vascularity: Unremarkable. Heart/mediastinum: Cardiomediastinal silhouette is enlarged and partially obscured due to surrounding opacities. Musculoskeletal: No acute osseous pathology. Midline sternotomy wires are noted and stable. Other findings: None Lines/Tubes: Stable right IJ Mediport catheter. IMPRESSION: Stable small to moderate size right pleural effusion with cardiac megaly.
== END | disposition home or self-care (01) ==
LOC: RADXRMAIN 14:33
PROVIDERS: ATTEND Internal Medicine
DX: I50.32 Chronic diastolic (congestive) heart failure (principal); J90 Pleural effusion, not elsewhere classified
CPT/HCPCS: 71046

== ENCOUNTER 2022-07-16 15:16 | Inpatient (IN) | payer MEDICARE ==
[2022-07-16 17:45] LABS: Basophils % (A) 1 %; Eosinophils # (A) 0.1 k/uL (0-0.7); Eosinophils % (A) 2 %; HCT 28.7 % (39.0-53.0); Hypochromasia Moderate; Lymphocytes # (A) 0.3 k/uL (1.0-4.8); Lymphocytes % (A) 8 %; MCH 31.4 pg (25.0-35.0); MCHC 32.2 g/dL (31.0-37.0); MCV 97.6 fL (80.0-100.0); Mean Platelet Volume 7.8; Monocytes # (A) 0.2 k/uL (0-1.0); Monocytes % (A) 5 %; Neutrophils % (A) 83 %; Platelet Count 228 k/uL (150-450); Poikilocytosis Slight; RBC 2.94 m/uL (4.30-5.90); RDW 15.4 % (11.5-15.5); WBC 3.7 k/uL (3.8-10.6)
[2022-07-16 17:55] LABS: HGB 9.2 gm/dL (13.0-17.5)
[2022-07-16 17:58] LABS: Albumin 3.9 g/dL (3.5-5.0); INR 1.1 (<1.2); Partial Thromboplastin Time 26.1 sec (22.0-30.0); Potassium 3.8 mmol/L (3.5-5.1); Prothrombin Time 11.8 sec (9.0-12.0); Total Bilirubin 0.2 mg/dL (0.2-1.3)
--- NOTE | 2022-07-16 18:10 | ED ---
SOB HPI - General Chief Complaint: Shortness of Breath Stated Complaint: SOB Time Seen by Provider: 07/16/22 16:09 Source: patient Mode of arrival: wheelchair Limitations: no limitations - History of Present Illness Initial Comments: This patient is a 72-year-old man who presents with complaint that he has had progressive worsening of his breathing. This been going on over the course of weeks. Patient notes that the breathing becomes worse if he is lying flat. He does have a little bit of cough with only occasional sputum. No fever or chills noted. No chest pain. The patient had been admitted for this 6 weeks ago. He at that time was told that he had fluid collection at the right lung but that a probably could not be drained. MD Complaint: shortness of breath Onset/Timin -: week(s) Severity scale (1-10): 0 Consistency: constant Improves With: nothing Worsens With: lying flat Known History Of: congestive heart failure Associated Symptoms: cough, other (Leg swelling) Treatments Prior to Arrival: none - Related Data Home Oxygen Therapy: No Home Medications Medication Instructions Recorded Confirmed Tamsulosin HCl [Flomax] 0.4 mg PO BID 06/19/15 07/16/22 amLODIPine [Norvasc] 5 mg PO DAILY 07/09/16 07/16/22 Ferrous Sulfate [Iron (65 MG 325 mg PO DAILY 03/21/21 07/16/22 Elemental)] INSULIN ASPART (NovoLOG) [NovoLOG 25 unit SQ AC-BID 03/21/21 07/16/22 (formulary)] Pravastatin Sodium [Pravachol] 40 mg PO HS 03/21/21 07/16/22 allopurinoL [Zyloprim] 100 mg PO DAILY 03/21/21 07/16/22 hydrALAZINE HCL [Apresoline] 75 mg PO BID 03/21/21 07/16/22 Cholecalciferol [Vitamin D3 (25 25 mcg PO DAILY 01/13/22 07/16/22 Mcg = 1000 Iu)] Amiodarone [Cordarone] 100 mg PO DAILY 02/07/22 07/16/22 Folic Acid 0.8 mg PO DAILY 02/07/22 07/16/22 Metoprolol Succinate (ER) [Toprol 25 mg PO DAILY 02/07/22 07/16/22 XL] Cholestyramine (with Sugar) 4 gm PO BID 06/03/22 07/16/22 [Questran Packet] Diphenoxylate HCl/Atropine 1 tab PO DAILY 06/03/22 07/16/22 [Lomotil 2.5-0.025 mg Tablet] Lidocaine-Prilocaine Cream [Emla 1 applic TOPICAL DAILY PRN 06/03/22 07/16/22 Cream 2.5%/2.5%] calcitrioL [Calcitriol] 0.25 mcg PO MO 06/03/22 07/16/22 Famotidine [Pepcid] 20 mg PO DAILY PRN 07/16/22 07/16/22 Furosemide [Lasix] 40 mg PO BID 07/16/22 07/16/22 Previous Rx's Medication Instructions Recorded Apixaban [Eliquis] 2.5 mg PO BID #0 06/07/22 Docusate [Colace] 100 mg PO BID PRN cap 06/07/22 Insulin Glargine,Hum.rec.anlog 30 units SQ HS #0 06/07/22 [Lantus Solostar Pen] Allergies Allergy/AdvReac Type Severity Reaction Status Date / Time Penicillins Allergy Unknown Rash/Hives Verified 07/16/22 20:53 adhesive AdvReac skin tears Verified 07/16/22 20:53 Review of Systems ROS Statement: Those systems with pertinent positive or pertinent negative responses have been documented in the HPI. ROS Other: All systems not noted in ROS Statement are negative. Constitutional: Denies: fever, chills Respiratory: Reports: cough, dyspnea. Denies: hemoptysis, stridor Cardiovascular: Reports: orthopnea, edema. Denies: chest pain, palpitations, syncope Gastrointestinal: Reports: constipation. Denies: abdominal pain, vomiting, diarrhea, melena, hematochezia Musculoskeletal: Denies: back pain Skin: Denies: rash Neurological: Denies: headache, weakness Past Medical History Past Medical History: Atrial Fibrillation, Atrial Flutter, Coronary Artery Disease (CAD), Cancer, Diabetes Mellitus, Deep Vein Thrombosis (DVT), Eye Disorder, GERD/Reflux, Hyperlipidemia, Hypertension, Myocardial Infarction ([place]), Neurologic Disorder, Osteoarthritis (OA), Prostate Disorder, Sleep Apnea/CPAP/BIPAP Additional Past Medical History / Comment(s): Current right breast cancer. HX OF POLYPS, BLOOD IN STOOL, uti's. Hx tailbone fracture, neuropathy to feet. Blind in right eye. Hx encephalopathy, meningioma with left sided weakness, cannot use left leg, wheelcahir bound. PT CAN'T HAVE ANY VACCINES THAT ARE LIVE VIRUSES. PLEASE USE PAPER TAPE ONLY(PT HAS THIN SKIN). uses slide board at home to transfer pt to w/c, with 2 person assist pt can stand/pivot to chair. Last Myocardial Infarction Date:: 02-11-2005 History of Any Multi-Drug Resistant Organisms: None Reported Past Surgical History: Adenoidectomy, Cardiac Ablation, Cholecystectomy, Cor onary Bypass/CABG, Heart Catheterization With Stent, Orthopedic Surgery, Tonsillectomy Additional Past Surgical History / Comment(s): Triple bypass, Meningioma Removed from Brain 04/2013, peg tube- removed 9 years ago, DESTINEY FILTER, BILATERAL CATARACTS- LENS IMPLANTS, COLONOSCOPY/POLYPECTOMY, RIGHT KNEE ARTHROSCOPY. Past Anesthesia/Blood Transfusion Reactions: No Reported Reaction Date of Last Stent Placement:: 2004 Past Psychological History: Depression Smoking Status: Never smoker Past Alcohol Use History: None Reported Past Drug Use History: None Reported - Past Family History Father History Unknown: Yes Family Medical History: Congestive Heart Failure (CHF) Mother History Unknown: Yes Additional Family Medical History / Comment(s): STILL ALIVE AT AGE 90 IN [facility] General Exam Limitations: no limitations General appearance: alert Head exam: Present: atraumatic, normocephalic Eye exam: Present: normal appearance. Absent: scleral icterus, conjunctival injection Neck exam: Present: normal inspection Respiratory exam: Present: rales, decreased breath sounds (Right base). Absent: wheezes, rhonchi, stridor, accessory muscle use Cardiovascular Exam: Present: regular rate, normal rhythm, systolic murmur. Absent: diastolic murmur, rubs, gallop GI/Abdominal exam: Present: soft. Absent: distended, tenderness, guarding, rebound, rigid, mass Extremities exam: Present: normal inspection. Absent: normal capillary refill, pedal edema, calf tenderness Back exam: Present: normal inspection. Absent: CVA tenderness (R), CVA tenderness (L) Neurological exam: Present: alert Skin exam: Present: warm, dry, intact, normal color. Absent: rash Course Vital Signs 07/16/22 07/16/22 07/16/22 15:23 17:17 18:00 Temperature 97.6 F Pulse Rate 66 60 67 Respiratory 18 20 20 Rate Blood Pressure 130/72 135/67 135/68 O2 Sat by Pulse 96 95 96 Oximetry 07/16/22 07/16/22 20:00 21:04 Temperature 97.8 F Pulse Rate 67 65 Respiratory 20 18 Rate Blood Pressure 135/60 140/65 O2 Sat by Pulse 95 96 Oximetry Procedures - [place] Protocol (Time Out) Nurse: Karen Pimentel Medical Decision Making - Lab Data Result diagrams: 07/20/22 11:00 07/20/22 11:00 Lab Results 07/16/22 07/16/22 07/16/22 Range/Units 17:32 17:32 17:32 WBC 3.7 L (3.8-10.6) k/uL RBC 2.94 L (4.30-5.90) m/uL Hgb 9.2 L D (13.0-17.5) gm/dL Hct 28.7 L (39.0-53.0) % MCV 97.6 (80.0-100.0) fL MCH 31.4 (25.0-35.0) pg MCHC 32.2 (31.0-37.0) g/dL RDW 15.4 (11.5-15.5) % Plt Count 228 (150-450) k/uL MPV 7.8 Neutrophils % 83 % Lymphocytes % 8 % Monocytes % 5 % Eosinophils % 2 % Basophils % 1 % Neutrophils # 3.0 (1.3-7.7) k/uL Lymphocytes # 0.3 L (1.0-4.8) k/uL Monocytes # 0.2 (0-1.0) k/uL Eosinophils # 0.1 (0-0.7) k/uL Basophils # 0.0 (0-0.2) k/uL Hypochromasia Moderate Poikilocytosis Slight PT 11.8 (9.0-12.0) sec INR 1.1 (<1.2) APTT 26.1 (22.0-30.0) sec D-Dimer 1.35 H (<0.60) mg/L FEU Sodium 141 (137-145) mmol/L Potassium 3.8 (3.5-5.1) mmol/L Chloride 104 (98-107) mmol/L Carbon Dioxide 22 (22-30) mmol/L Anion Gap 15 mmol/L BUN 51 H (9-20) mg/dL Creatinine 4.34 H (0.66-1.25) mg/dL Est GFR (CKD-EPI)AfAm 14 (>60 ml/min/1.73 sqM) Est GFR (CKD-EPI)NonAf 13 (>60 ml/min/1.73 sqM) Glucose 183 H (74-99) mg/dL Plasma Lactic Acid Micah (0.7-2.0) mmol/L Calcium 10.0 (8.4-10.2) mg/dL Total Bilirubin 0.2 (0.2-1.3) mg/dL AST 22 (17-59) U/L ALT 18 (4-49) U/L Alkaline Phosphatase 81 (38-126) U/L Troponin I (0.000-0.034) ng/mL NT-Pro-B Natriuret Pep pg/mL Total Protein 6.0 L (6.3-8.2) g/dL Albumin 3.9 (3.5-5.0) g/dL 07/16/22 07/16/22 07/16/22 Range/Units 17:32 17:32 17:32 WBC (3.8-10.6) k/uL RBC (4.30-5.90) m/uL Hgb (13.0-17.5) gm/dL Hct (39.0-53.0) % MCV (80.0-100.0) fL MCH (25.0-35.0) pg MCHC (31.0-37.0) g/dL RDW (11.5-15.5) % Plt Count (150-450) k/uL MPV Neutrophils % % Lymphocytes % % Monocytes % % Eosinophils % % Basophils % % Neutrophils # (1.3-7.7) k/uL Lymphocytes # (1.0-4.8) k/uL Monocytes # (0-1.0) k/uL Eosinophils # (0-0.7) k/uL Basophils # (0-0.2) k/uL Hypochromasia Poikilocytosis PT (9.0-12.0) sec INR (<1.2) APTT (22.0-30.0) sec D-Dimer (<0.60) mg/L FEU Sodium (137-145) mmol/L Potassium (3.5-5.1) mmol/L Chloride (98-107) mmol/L Carbon Dioxide (22-30) mmol/L Anion Gap mmol/L BUN (9-20) mg/dL Creatinine (0.66-1.25) mg/dL Est GFR (CKD-EPI)AfAm (>60 ml/min/1.73 sqM) Est GFR (CKD-EPI)NonAf (>60 ml/min/1.73 sqM) Glucose (74-99) mg/dL Plasma Lactic Acid Micah 0.7 (0.7-2.0) mmol/L Calcium (8.4-10.2) mg/dL Total Bilirubin (0.2-1.3) mg/dL AST (17-59) U/L ALT (4-49) U/L Alkaline Phosphatase (38-126) U/L Troponin I 0.034 (0.000-0.034) ng/mL NT-Pro-B Natriuret Pep 1270 pg/mL Total Protein (6.3-8.2) g/dL Albumin (3.5-5.0) g/dL - EKG Data -: EKG Interpreted by Nm EKG shows normal: sinus rhythm, axis (Normal), intervals (RI interval 210 ms, prolonged consistent with first-degree AV block.), QRS complexes (Low-voltage QRS complex. Incomplete right bundle branch block.) Rate: bradycardia (Rate 59 bpm) Interpretation: nonspecific ST-T wave changes Disposition Clinical Impression: Congestive heart failure, Chronic renal failure, Pleural effusion, Dyspnea Disposition: ADMITTED IP TO THIS HOSP Condition: Fair Is patient prescribed a controlled substance at d/c from ED?: No
--- NOTE | 2022-07-16 18:47 | XR ---
EXAMINATION TYPE: XR chest 1V portable DATE OF EXAM: 07/16/2022 6:05 PM COMPARISON: Chest radiographs from 07/03/2022. TECHNIQUE: XR chest 1V portable Portable AP radiograph of the chest. CLINICAL INDICATION:Male, 72 years old with history of cough/dyspnea; FINDINGS: Lungs/Pleura: No evidence of focal consolidation or pneumothorax. Blunting of the costophrenic angles is present. Pulmonary vascularity: Pulmonary vascular congestion. Heart/mediastinum: Cardiomediastinal silhouette is enlarged and stable. Musculoskeletal: No acute osseous pathology. Midline sternotomy wires are noted. Other findings: Cholecystectomy clips identified in the upper abdomen. Lines/Tubes: [id number] projecting over the right hemithorax with distal tip at the cavoatrial junction. IMPRESSION: Cardiomegaly, pulmonary vascular congestion and bilateral pleural effusions. Correlate with BNP for c ongestive heart failure.
[2022-07-16] MEDS: APIXABAN 2.5 MG TABLET PO SCH (20:49)
[2022-07-16] MEDS: FUROSEMIDE 10 MG/ML 10 ML VIAL IV SCH (20:49)
[2022-07-16] MEDS: hydrALAZINE HCL 50 MG TAB PO SCH (20:49)
[2022-07-16 21:50] LABS: Glucose,Whole Blood 158 mg/dL (70-110)
[2022-07-16] MEDS ORDERED: FAMOTIDINE 20 MG TAB PO PRN (23:13)
[2022-07-16] MEDS ORDERED: LIDOCAINE-PRILOCAINE 2.5-2.5% CREAM 5 GM TUBE TOPICAL PRN (23:13)
[2022-07-17 06:20] LABS: Glucose,Whole Blood 123 mg/dL (70-110)
[2022-07-17] MEDS: INSULIN ASPART (NovoLOG) 100 UNIT/ML VIAL SQ SCH ×4 (06:22→20:01)
--- NOTE | 2022-07-17 08:22 | P.CRDCN ---
History of Present Illness Consult date: 07/17/22 History of present illness: History of Present Illness: The patient is a 72-year-old male who presents with symptoms of progressive dyspnea. He has a known history of chronic kidney disease, atrial fibrillation, breast cancer who was in the hospital about a months ago and has continued to be dyspneic, worse over the last few days with some worsening cough, PND and li mited activity. He is dyspneic with minimal physical activity. He is status post CABG in 2004 but had no evidence to suggest recurrent ischemia. His most recent echocardiogram showed a preserved systolic function with mild to moderate aortic stenosis and a mean gradient of 16 mmHg. The patient denies any chest discomfort, dizziness or palpitations. He is limited in his physical activity and has stage IV chronic kidney disease. He has received 10 courses of chemotherapy and according to him has been stable. He had evidence of prior right-sided effusion but was not felt to be a good candidate for thoracentesis. On presentation his troponin were 0.034, 0.036 and 0.037. His creatinine is 4.34. His NT proBNP is 1270. His chest x-ray shows bilateral pleural effusion. He has a history of hypertension, hyperlipidemia and diabetes mellitus. Medications: Amiodarone 100 mg daily, Norvasc 5 mg daily, hydralazine 75 mg twice a day, insulin, pravastatin 40 mg daily, Toprol-XL 25 mg daily, Flomax. He is on Lasix 40 mg by mouth at home and was started on 80 mg IV twice a day since admission Review of Systems: Respiratory: Progressive dyspnea with cough GI: No nausea or vomiting . No history of peptic ulcer disease. No recent GI bleed. : No hematuria or dysuria. Nervous System: No stroke or seizure. Physical Examination: 72-year-old male, alert and oriented no apparent distress,Blood pressure 144/70, Heart rate 60 Head: Normocephalic. Eyes: Sclerae nonicteric. Neck: Good carotid upstroke, no bruit, no jugular venous distention. Lungs: Decreased breath sounds at both bases Heart: Regular rate and rhythm, S1-S2, no S3, no rub. Systolic ejection murmur. Abdomen: Soft nontender, positive bowel sounds no organomegaly. Extremities: 1+ edema, intact distal pulses. Labs: Creatinine 4.34 his BUN of 51, his creatinine was 4.09 in May. Troponin peak 0.037, NT proBNP 1270. Hemoglobin 9.2. Chest x-ray shows effusion bilaterally EKG: Probable sinus mechanism although baseline is poor, rate of 59 Impression: 1. Worsening dyspnea, multifactorial with chronic kidney disease, heart failure with preserved systolic function. 2. Status post CABG with no evidence of acute ischemia 3. Stage IV chronic kidney disease 4. History of paroxysmal atrial fibrillation 5. History of hypertension 6. History of hyperlipidemia 7. History of diabetes 8. Breast cancer, post chemotherapy, followed by Dr. Cameron Plan: 1. Continue IV diuresis 2. Follow renal functions 3. If no improvement may require dialysis 4. Depending on his progress further recommendations will be made 5. Thank you for this consult we will follow with you. Past Medical History Past Medical History: Atrial Fibrillation, Atrial Flutter, Coronary Artery Disease (CAD), Cancer, Diabetes Mellitus, Deep Vein Thrombosis (DVT), Eye Disorder, Hyperlipidemia, Hypertension, Myocardial Infarction ([place]), Neurologic Disorder, Osteoarthritis (OA), Prostate Disorder, Sleep Apnea/CPAP/BIPAP Additional Past Medical History / Comment(s): Current right breast cancer. HX OF POLYPS, BLOOD IN STOOL, uti's. Hx tailbone fracture, neuropathy to feet. Blind in right eye. Hx encephalopathy, meningioma with left sided weakness, cannot use left leg, wheelcahir bound. PT CAN'T HAVE ANY VACCINES THAT ARE LIVE VIRUSES. PLEASE USE PAPER TAPE ONLY(PT HAS THIN SKIN). uses slide board at home to transfer pt to w/c, with 2 person assist pt can stand/pivot to chair. Last Myocardial Infarction Date:: 02-11-2005 History of Any Multi-Drug Resistant Organisms: None Reported Past Surgical History: Adenoidectomy, Cardiac Ablation, Cholecystectomy, Coronary Bypass/CABG, Heart Catheterization With Stent, Orthopedic Surgery, Tonsillectomy Additional Past Surgical History / Comment(s): Triple bypass, Meningioma Removed from Brain 04/2013, peg tube- removed 9 years ago, DESTINEY FILTER, BILATERAL CATARACTS- LENS IMPLANTS, COLONOSCOPY/POLYPECTOMY, RIGHT KNEE ARTHROSCOPY. Past Anesthesia/Blood Transfusion Reactions: No Reported Reaction Date of Last Stent Placement:: 2004 Past Psychological History: Depression Additional Psychological History / Comment(s): PT UNABLE TO AMBULATE BUT ABLE TO STAND WITH ASSIST OF 2 /PIVOT TO W/C OR MOTORIZED CHAIR. 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 Smoking Status: Never smoker Past Alcohol Use History: None Reported Past Drug Use History: None Reported - Past Family History Father History Unknown: Yes Family Medical History: Congestive Heart Failure (CHF) Mother History Unknown: Yes Additional Family Medical History / Comment(s): STILL ALIVE AT AGE 90 IN [facility] Medications and Allergies Home Medications Medication Instructions Recorded Confirmed Type Tamsulosin HCl [Flomax] 0.4 mg PO BID 06/19/15 07/16/22 History amLODIPine [Norvasc] 5 mg PO DAILY 07/09/16 07/16/22 History Ferrous Sulfate [Iron (65 MG 325 mg PO DAILY 03/21/21 07/16/22 History Elemental)] INSULIN ASPART (NovoLOG) [NovoLOG 25 unit SQ AC-BID 03/21/21 07/16/22 History (formulary)] Pravastatin Sodium [Pravachol] 40 mg PO HS 03/21/21 07/16/22 History allopurinoL [Zyloprim] 100 mg PO DAILY 03/21/21 07/16/22 History hydrALAZINE HCL [Apresoline] 75 mg PO BID 03/21/21 07/16/22 History Cholecalciferol [Vitamin D3 (25 25 mcg PO DAILY 01/13/22 07/16/22 History Mcg = 1000 Iu)] Amiodarone [Cordarone] 100 mg PO DAILY 02/07/22 07/16/22 History Folic Acid 0.8 mg PO DAILY 02/07/22 07/16/22 History Metoprolol Succinate (ER) [Toprol 25 mg PO DAILY 02/07/22 07/16/22 History XL] Cholestyramine (with Sugar) 4 gm PO BID 06/03/22 07/16/22 History [Questran Packet] Diphenoxylate HCl/Atropine 1 tab PO DAILY 06/03/22 07/16/22 History [Lomotil 2.5-0.025 mg Tablet] Lidocaine-Prilocaine Cream [Emla 1 applic TOPICAL DAILY PRN 06/03/22 07/16/22 History Cream 2.5%/2.5%] calcitrioL [Calcitriol] 0.25 mcg PO MO 06/03/22 07/16/22 History Apixaban [Eliquis] 2.5 mg PO BID #0 06/07/22 07/16/22 Rx Docusate [Colace] 100 mg PO BID PRN cap 06/07/22 07/16/22 Rx Insulin Glargine,Hum.rec.anlog 30 units SQ HS #0 06/07/22 07/16/22 Rx [Lantus Solostar Pen] Famotidine [Pepcid] 20 mg PO DAILY PRN 07/16/22 07/16/22 History Furosemide [Lasix] 40 mg PO BID 07/16/22 07/16/22 History Allergies Allergy/AdvReac Type Severity Reaction Status Date / Time Penicillins Allergy Unknown Rash/Hives Verified 07/16/22 20:53 adhesive AdvReac skin tears Verified 07/16/22 20:53 Physical Exam Vitals: Vital Signs Temp Pulse Pulse Resp BP BP Pulse Ox 07/17/22 04:00 97.4 F L 60 18 144/73 97 07/17/22 01:46 18 07/17/22 00:00 97.6 F 59 L 18 142/55 96 07/16/22 22:30 58 L 20 07/16/22 21:52 97.5 F L 58 L 20 127/66 91 L 07/16/22 21:04 65 18 140/65 96 07/16/22 20:00 97.8 F 67 20 135/60 95 07/16/22 18:00 67 20 135/68 96 07/16/22 17:17 60 20 135/67 95 07/16/22 15:23 97.6 F 66 18 130/72 96 Intake and Output 07/16/22 07/17/22 07/17/22 22:59 06:59 14:59 Output Total 620 Balance -620 Output: Urine 620 Other: Voiding Method Urinal # Voids 1 Weight 99.79 kg 103 kg Results 07/16/22 17:32 07/16/22 17:32 Cardiac Enzymes 07/16/22 07/16/22 07/16/22 Range/Units 17:32 17:32 21:21 AST 22 (17-59) U/L Troponin I 0.034 0.036 H* (0.000-0.034) ng/mL 07/16/22 Range/Units 23:30 AST (17-59) U/L Troponin I 0.037 H* (0.000-0.034) ng/mL Coagulation 07/16/22 Range/Units 17:32 PT 11.8 (9.0-12.0) sec APTT 26.1 (22.0-30.0) sec CBC 07/16/22 Range/Units 17:32 WBC 3.7 L (3.8-10.6) k/uL RBC 2.94 L (4.30-5.90) m/uL Hgb 9.2 L D (13.0-17.5) gm/dL Hct 28.7 L (39.0-53.0) % Plt Count 228 (150-450) k/uL Comprehensive Metabolic Panel 07/16/22 Range/Units 17:32 Sodium 141 (137-145) mmol/L Potassium 3.8 (3.5-5.1) mmol/L Chloride 104 (98-107) mmol/L Carbon Dioxide 22 (22-30) mmol/L BUN 51 H (9-20) mg/dL Creatinine 4.34 H (0.66-1.25) mg/dL Glucose 183 H (74-99) mg/dL Calcium 10.0 (8.4-10.2) mg/dL AST 22 (17-59) U/L ALT 18 (4-49) U/L Alkaline Phosphatase 81 (38-126) U/L Total Protein 6.0 L (6.3-8.2) g/dL Albumin 3.9 (3.5-5.0) g/dL Current Medications Generic Name Dose Route Start Last Admin Trade Name Freq PRN Reason Stop Dose Admin Allopurinol 100 mg 07/17/22 09:00 Allopurinol 100 Mg Tab PO DAILY [facility] Amiodarone HCl 100 mg 07/17/22 09:00 Amiodarone 100 Mg Tab PO DAILY [facility] Amlodipine Besylate 5 mg 07/17/22 09:00 Amlodipine 5 Mg Tab PO DAILY [facility] Apixaban 2.5 mg 07/16/22 21:00 07/16/22 20:49 Apixaban 2.5 Mg Tablet PO 2.5 mg BID [facility] Administration Protocol Calcitriol 0.25 mcg 07/21/22 09:00 Calcitriol 0.25 Mcg Cap PO MO [facility] Cholecalciferol 25 mcg 07/17/22 09:00 Cholecalciferol 25 Mcg (1000 Iu) Tablet PO DAILY [facility] Cholestyramine Resin 4 gm 07/17/22 09:00 Cholestyramine (With Sugar) 4 Gm Packet PO BID [facility] Diphenoxylate HCl/Atropine 1 each 07/17/22 09:00 Diphenox-Atrop 2.5-0.025 Mg 1 Each Tab PO DAILY [facility] Docusate Sodium 100 mg 07/17/22 09:00 Docusate 100 Mg Cap PO BID PRN Constipation Famotidine 20 mg 07/17/22 09:00 Famotidine 20 Mg Tab PO DAILY [facility] Famotidine 20 mg 07/16/22 23:13 Famotidine 20 Mg Tab PO DAILY PRN GER[facility] Ferrous Sulfate 325 mg 07/17/22 09:00 Ferrous Sulfate 325 Mg Tab PO DAILY [facility] Folic Acid 1 mg 07/17/22 09:00 Folic Acid 1 Mg Tab PO DAILY [facility] Furosemide 80 mg 07/16/22 21:00 07/16/22 20:49 Furosemide 10 Mg/Ml 10 Ml Vial IV 80 mg Q12HR [facility] Administration Hydralazine HCl 75 mg 07/16/22 21:00 07/16/22 20:49 Hydralazine Hcl 50 Mg Tab PO 75 mg BID [facility] Administration Insulin Aspart 0 unit 07/17/22 07:30 07/17/22 06:22 Insulin Aspart (Novolog) 100 Unit/Ml Vial SQ Not Given ACHS [facility] Protocol Insulin Detemir 30 unit 07/17/22 21:00 Insulin Detemir (Levemir) 100 Unit/Ml Syr SQ [facility] Lidocaine/Prilocaine 1 applic 07/16/22 23:13 Lidocaine-Prilocaine 2.5-2.5% Cream 5 Gm Tube TOPICAL DAILY PRN port access Protocol Metoprolol Succinate 25 mg 07/17/22 09:00 Metoprolol Succinate (Er) 25 Mg Tab.Er.24h PO DAILY [facility] Pravastatin Sodium 40 mg 07/17/22 21:00 Pravastatin Sodium 40 Mg Tab PO HS [facility] Sodium Chloride 10 ml 07/16/22 21:00 07/16/22 23:45 Sodium Chloride 0.9% Flush 10 Ml Syringe IV Not Given BID [facility] Tamsulosin HCl 0.4 mg 07/17/22 09:00 Tamsulosin 0.4 Mg Cap.Er.24h PO BID [facility] Intake and Output 07/16/22 07/17/22 07/17/22 22:59 06:59 14:59 Output Total 620 Balance -620 Output: Urine 620 Other: Voiding Method Urinal # Voids 1 Weight 99.79 kg 103 kg 07/16/22 17:32 07/16/22 17:32
[2022-07-17] MEDS ORDERED: DOCUSATE 100 MG CAP PO PRN (09:00)
--- NOTE | 2022-07-17 09:05 | NM ---
EXAMINATION TYPE: NM pul perfusion DATE OF EXAM: 07/17/2022 COMPARISON: 08/09/2013, chest x-ray 07/16/2022 HISTORY: Rule out PE Following administration of 4.9 mCi Tc 99m MAA. Images obtained post injection. No ventilation was p erformed at this time. FINDINGS: There may be a small defect along the right costophrenic angle. This corresponded to moderate pleural effusion. Additional defects not identified. IMPRESSION: Intermediate probability for pulmonary embolism based on modified PIOPED 2 criteria.
[2022-07-17] MEDS: AMIODARONE 100 MG TAB PO SCH (09:46)
[2022-07-17] MEDS: APIXABAN 2.5 MG TABLET PO SCH ×2 (09:46→20:00)
[2022-07-17] MEDS: amLODIPine 5 MG TAB PO SCH (09:46)
[2022-07-17] MEDS: CHOLECALCIFEROL 25 MCG (1000 IU) TABLET PO SCH (09:46)
[2022-07-17] MEDS: allopurinoL 100 MG TAB PO SCH (09:46)
[2022-07-17] MEDS: DIPHENOX-ATROP 2.5-0.025 MG 1 EACH TAB PO SCH (09:47)
[2022-07-17] MEDS: FUROSEMIDE 10 MG/ML 10 ML VIAL IV SCH ×2 (09:47→20:01)
[2022-07-17] MEDS: FAMOTIDINE 20 MG TAB PO SCH ×2 (09:47→20:00)
[2022-07-17] MEDS: FOLIC ACID 1 MG TAB PO SCH (09:47)
[2022-07-17] MEDS: FERROUS SULFATE 325 MG TAB PO SCH (09:47)
[2022-07-17] MEDS: CHOLESTYRAMINE (WITH SUGAR) 4 GM PACKET PO SCH ×2 (09:47→20:02)
--- NOTE | 2022-07-17 10:47 | P.HPIM ---
History of Present Illness H&P Date: 07/17/22 HISTORY OF PRESENT ILLNESS: this is a 72-year-old male with a previous medical history significant for hypertension and hypertensive cardiovascular disease with left ventricular hypertrophy, hyperlipidemia, diabetes mellitus type 2, with diabetic polyneuropathy, history of coronary artery disease status post coronary artery bypass graft x3 followed by stent, history of atrial fibrillation status post ablation on long-term eliquis, history of meningioma status post resection back in April 2013 with left-sided weakness, history of chronic kidney disease stage IV currently under the care of nephrology with plan for CAPD at later date, history of anemia of chronic kidney disease, history of secondary hyperparathyroidism. Patient also has history of newly diagnosed breast cancer on the right side status post biopsy which revealed invasive moderately differentiated ductal carcinoma status post chemotherapy with plan for radiation therapy following and then surgical intervention. Patient had a recent hospitalization in May for acute diastolic heart failure with right-sided pleural effusion and diarrhea secondary to chemotherapy. He was seen by cardiology oncology and nephrology. Echocardiogram at that time revealed EF of 55%, aortic sclerosis with mild to moderate aortic stenosis. Patient was discharged to home with plan for outpatient follow-up. A chest x-ray done as an outpatient on July 03 revealed stable small to moderate size right pleural effusion with cardiomegaly. Patient had an appointment with Dr. Valdes yesterday thought to have significant shortness of breath and was instructed to come in to the hospital for further evaluation. Patient has had continued shortness of breath and worse over the past few days with cough, exertional dyspnea. Patient came into [facility] emergency center for evaluation. He was found to be afebrile, heart rate 80, blood pressure 114/62, pulse ox 97% on room air. WBC 3.3, hemoglobin 7, platelet count 310. INR 1.1. Sodium 141, potassium 3.5, chloride 108, CO2 20, BUN 38 creatinine 3.2. Glucose 216. Liver function tests normal. Troponin negative on 3 draws. Albumin 3.5. ProBNP 1120. Chest x-ray reveals pulmonary vascular congestion and bilateral pleural effusions. Correlate with BNP for congestive heart failure. VQ scan was intermediate probability for pulmonary embolism. Patient was admitted to the cardiac stepdown unit and cardiology consult and nephrology consult ordered. Will add in consult for oncology, patient's oncologist is Dr. Cameron. He has been started on Lasix 40 mg IV push every 8 hours. REVIEW OF SYSTEMS: Constitutional: No documented fever, no chills, no night sweats. No weight change. positive for weakness, fatigue or lethargy. No daytime sleepiness. HEENT: No headache. No blurred vision or double vision, no loss of vision. No loss of Hearing, no ringing in the ears, no dizziness. No nasal drainage or congestion. No epistaxis. No sore throat. Lungs: positive for shortness of breath, no cough, no sputum production. No wheezing. Reports dyspnea with activity. Cardiovascular: No chest pain, reported lower extremity edema. No palpitations. Reported paroxysmal nocturnal dyspnea. Reports orthopnea. No lightheadedness or dizziness. No syncopal episodes. Abdominal: Reports no abdominal pain. No nausea, vomiting. Reports diarrhea. No constipation. No bloody or tarry stools reports loss of appetite. Genitourinary: No dysuria, increased frequency, urgency. No urinary retention. Musculoskeletal: No myalgias. positive for chronic left sided weakness, positive for gait dysfunction, no frequent falls. positive for back pain. positive for neck pain. Integumentary: No wounds, no lesions. No rash or pruritus. No unusual bruising. No change in hair or nails. Neurologic: No aphasia. No facial droop. No change in mentation. No head injury. No headache, positive for left sided weakness and left foot drop. Psychiatric: positive for depression. No anxiety. No mood swings. Endocrine: No abnormal blood sugars. No weight change. PAST MEDICAL HISTORY: Coronary artery disease status post coronary artery bypass graft 3 with PCI. Hypertension and hypertensive cardio vascular disease. Hyperlipidemia. Diabetes mellitus type 2. History of meningioma status post resection April 2013 with resultant left- sided weakness. Paroxysmal Atrial fibrillation. Diabetic polyneuropathy. Enlarged prostate. GERD. DVT. Osteoarthritis. Chronic kidney disease stage IV. Anemia of chronic kidney disease. Secondary hyperparathyroidism. Ductal carcinoma right breast PAST SURGICAL HISTORY: CABG 3. Left heart catheterization with PCI. Bilateral cataract surgery with implants. Right arthroscopic knee surgery. Meningioma resection with resultant left-sided weakness. Tonsillectomy and adenoidectomy. Cholecystectomy. EGD and colonoscopy. Cardiac ablation. IVC Destiney filter placement. [id number] SOCIAL HISTORY: Patient is a lifelong nonsmoker he denies any history of drinking he denies any history of drug use or abuse he currently lives with his , he uses a sliding board, he uses a wheelchair and a scooter to ambulate around. FAMILY HISTORY: Mother at age of 92 from natural causes, father at age of 83 from con gestive heart failure, patient has one adopted brother, 2 sisters who are okay, patient has one son with no major medical problems and one daughter with hypothyroidism. PHYSICAL EXAMINATION: General: this is a 72-year-old male who is sitting up in bed appears to be in no respiratory distress at rest. HEENT: Head is atraumatic, normocephalic, pupils were equal round reactive to light and recommendation, extraocular muscle movement were intact, sclera nonicteric, conjunctivae were pale, mucous membranes of the mouth are somewhat dry. Neck: Supple, no JVP, normal carotid upstroke bilaterally, no lymphadenopathy. Chest: Decreased breath sounds at the bases with decreased tactile fremitus, few rhonchi, no expiratory wheezes, no chest wall tenderness, no intercostal retractions. Heart: First heart sound is normal, second heart sounds normal, irregularly irregular, there is systolic ejection murmur 2/6 located in the left sternal border. Abdomen: Soft, nontender, nondistended, positive bowel sounds. Extremities: There is +1 edema to the bilateral lower extremities left greater than right no calf tenderness DP +2 bilaterally. Neurologic examination: Patient is awake alert and oriented X3 , cranial nerves II-12 appear grossly intact, there is left-sided weakness with left foot drop. ASSESSMENT AND PLAN: 1. Acute diastolic heart failure with right pleural effusion. Continue patient on metoprolol XL 25 mg orally once every day, continue patient on Lasix 80 mg IV push every 12 hours, monitor input and output and daily weight, continue patient also on hydralazine 75 mg orally twice every day, cardiology consultation appreciated. VQ scan came back as intermediate probability for PE. Pulmonary medicine consult in place. 2. Right-sided breast cancer status post chemotherapy. Patient is scheduled for surgery on Thursday with Dr. Valdes. Consult with Dr. Valdes. 3. Right pleural effusion with atelectasis. 4. Bicytopenia secondary to cancer. Continue to monitor. 6. History of CAD post CABG as well as PCI and stent placement. Continue patient on metoprolol XL 25 mg once every day, pravastatin 40 mg at bedtime. 7. History of paroxysmal atrial fibrillation. Continue patient on Eliquis 5 mg orally twice every day, continue amiodarone 100 mg orally once every day, metoprolol XL 25 mg orally once every day. 8. Hypertension and hypertensive cardiovascular disease. Continue patient on amlodipine 5 mg once every day, continue with metoprolol ER 25 mg orally once every day, monitor the patient blood pressure very closely. 9. Hyperlipidemia. Continue patient on pravastatin 40 mg at bedtime, monitor lipid panel, keep LDL 55-70. 10. Chronic kidney disease stage IV. Avoid nephrotoxic agents, consult nephrology. 11. History of enlarged prostate. Continue Flomax 0.4 mg once every day, monitor for urinary retention. 12. Diabetes mellitus type 2. Continue Lantus 30 units at bedtime, monitor the patient blood glucose level and at bedtime with NovoLog scale 13. Diabetic polyneuropathy. Stable. 14. History of DVT status post IVC filter placement, continue with Eliquis 5 mg orally twice every day. 15. Chronic gout. Continue patient on allopurinol 100 mg orally once every day. 16. History of meningioma with left-sided weakness. Physical therapy evaluation. Admit to inpatient. Estimate a length of stay 2 midnights. Patient is a full code. DISCHARGE PLAN Return home Impression and plan of care have been directed as dictated by the signing physician. Nita Linn nurse practitioner acting as scribe for signing physician. Past Medical History Past Medical History: Atrial Fibrillation, Atrial Flutter, Coronary Artery Disease (CAD), Cancer, Diabetes Mellitus, Deep Vein Thrombosis (DVT), Eye Disorder, Hyperlipidemia, Hypertension, Myocardial Infarction ([place]), Neurologic Disorder, Osteoarthritis (OA), Prostate Disorder, Sleep Apnea/CPAP/BIPAP Additional Past Medical History / Comment(s): Current right breast cancer. HX OF POLYPS, BLOOD IN STOOL, uti's. Hx tailbone fracture, neuropathy to feet. Blind in right eye. Hx encephalopathy, meningioma with left sided weakness, cannot use left leg, wheelcahir bound. PT CAN'T HAVE ANY VACCINES THAT ARE LIVE VIRUSES. PLEASE USE PAPER TAPE ONLY(PT HAS THIN SKIN). uses slide board at home to transfer pt to w/c, with 2 person assist pt can stand/pivot to chair. Last Myocardial Infarction Date:: 02-11-2005 History of Any Multi-Drug Resistant Organisms: None Reported Past Surgical History: Adenoidectomy, Cardiac Ablation, Cholecystectomy, Coronary Bypass/CABG, Heart Catheterization With Stent, Orthopedic Surgery, Tonsillectomy Additional Past Surgical History / Comment(s): Triple bypass, Meningioma Removed from Brain 04/2013, peg tube- removed 9 years ago, DESTINEY FILTER, BILATERAL CATARACTS- LENS IMPLANTS, COLONOSCOPY/POLYPECTOMY, RIGHT KNEE ARTHROSCOPY. Past Anesthesia/Blood Transfusion Reactions: No Reported Reaction Date of Last Stent Placement:: 2004 Past Psychological History: Depression Additional Psychological History / Comment(s): PT UNABLE TO AMBULATE BUT ABLE TO STAND WITH ASSIST OF 2 /PIVOT TO W/C OR MOTORIZED CHAIR. 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 Smoking Status: Never smoker Past Alcohol Use History: None Reported Past Drug Use History: None Reported - Past Family History Father History Unknown: Yes Family Medical History: Congestive Heart Failure (CHF) Mother History Unknown: Yes Additional Family Medical History / Comment(s): STILL ALIVE AT AGE 90 IN [facility] Medications and Allergies Home Medications Medication Instructions Recorded Confirmed Type Tamsulosin HCl [Flomax] 0.4 mg PO BID 06/19/15 07/16/22 History amLODIPine [Norvasc] 5 mg PO DAILY 07/09/16 07/16/22 History Ferrous Sulfate [Iron (65 MG 325 mg PO DAILY 03/21/21 07/16/22 History Elemental)] INSULIN ASPART (NovoLOG) [NovoLOG 25 unit SQ AC-BID 03/21/21 07/16/22 History (formulary)] Pravastatin Sodium [Pravachol] 40 mg PO HS 03/21/21 07/16/22 History allopurinoL [Zyloprim] 100 mg PO DAILY 03/21/21 07/16/22 History hydrALAZINE HCL [Apresoline] 75 mg PO BID 03/21/21 07/16/22 History Cholecalciferol [Vitamin D3 (25 25 mcg PO DAILY 01/13/22 07/16/22 History Mcg = 1000 Iu)] Amiodarone [Cordarone] 100 mg PO DAILY 02/07/22 07/16/22 History Folic Acid 0.8 mg PO DAILY 02/07/22 07/16/22 History Metoprolol Succinate (ER) [Toprol 25 mg PO DAILY 02/07/22 07/16/22 History XL] Cholestyramine (with Sugar) 4 gm PO BID 06/03/22 07/16/22 History [Questran Packet] Diphenoxylate HCl/Atropine 1 tab PO DAILY 06/03/22 07/16/22 History [Lomotil 2.5-0.025 mg Tablet] Lidocaine-Prilocaine Cream [Emla 1 applic TOPICAL DAILY PRN 06/03/22 07/16/22 History Cream 2.5%/2.5%] calcitrioL [Calcitriol] 0.25 mcg PO MO 06/03/22 07/16/22 History Apixaban [Eliquis] 2.5 mg PO BID #0 06/07/22 07/16/22 Rx Docusate [Colace] 100 mg PO BID PRN cap 06/07/22 07/16/22 Rx Insulin Glargine,Hum.rec.anlog 30 units SQ HS #0 06/07/22 07/16/22 Rx [Lantus Solostar Pen] Famotidine [Pepcid] 20 mg PO DAILY PRN 07/16/22 07/16/22 History Furosemide [Lasix] 40 mg PO BID 07/16/22 07/16/22 History Allergies Allergy/AdvReac Type Severity Reaction Status Date / Time Penicillins Allergy Unknown Rash/Hives Verified 07/16/22 20:53 adhesive AdvReac skin tears Verified 07/16/22 20:53 Physical Exam Vitals: Vital Signs Temp Pulse Pulse Resp BP BP Pulse Ox 07/17/22 04:00 97.4 F L 60 18 144/73 97 07/17/22 01:46 18 07/17/22 00:00 97.6 F 59 L 18 142/55 96 07/16/22 22:30 58 L 20 07/16/22 21:52 97.5 F L 58 L 20 127/66 91 L 07/16/22 21:04 65 18 140/65 96 07/16/22 20:00 97.8 F 67 20 135/60 95 07/16/22 18:00 67 20 135/68 96 07/16/22 17:17 60 20 135/67 95 07/16/22 15:23 97.6 F 66 18 130/72 96 Intake and Output 07/16/22 07/16/22 07/17/22 14:59 22:59 06:59 Output Total 620 Balance -620 Output: Urine 620 Other: Voiding Method Urinal # Voids 1 Weight 99.79 kg 103 kg Results CBC & Chem 7: 07/16/22 17:32 07/16/22 17:32 Labs: Abnormal Lab Results - Last 24 Hours (Table) 07/16/22 07/16/22 07/16/22 Range/Units 17:32 17:32 17:32 WBC 3.7 L (3.8-10.6) k/uL RBC 2.94 L (4.30-5.90) m/uL Hgb 9.2 L D (13.0-17.5) gm/dL Hct 28.7 L (39.0-53.0) % Lymphocytes # 0.3 L (1.0-4.8) k/uL D-Dimer 1.35 H (<0.60) mg/L FEU BUN 51 H (9-20) mg/dL Creatinine 4.34 H (0.66-1.25) mg/dL Glucose 183 H (74-99) mg/dL POC Glucose (mg/dL) (70-110) mg/dL Troponin I (0.000-0.034) ng/mL Total Protein 6.0 L (6.3-8.2) g/dL 07/16/22 07/16/22 07/16/22 Range/Units 21:21 21:48 23:30 WBC (3.8-10.6) k/uL RBC (4.30-5.90) m/uL Hgb (13.0-17.5) gm/dL Hct (39.0-53.0) % Lymphocytes # (1.0-4.8) k/uL D-Dimer (<0.60) mg/L FEU BUN (9-20) mg/dL Creatinine (0.66-1.25) mg/dL Glucose (74-99) mg/dL POC Glucose (mg/dL) 158 H (70-110) mg/dL Troponin I 0.036 H* 0.037 H* (0.000-0.034) ng/mL Total Protein (6.3-8.2) g/dL 07/17/22 Range/Units 06:18 WBC (3.8-10.6) k/uL RBC (4.30-5.90) m/uL Hgb (13.0-17.5) gm/dL Hct (39.0-53.0) % Lymphocytes # (1.0-4.8) k/uL D-Dimer (<0.60) mg/L FEU BUN (9-20) mg/dL Creatinine (0.66-1.25) mg/dL Glucose (74-99) mg/dL POC Glucose (mg/dL) 123 H (70-110) mg/dL Troponin I (0.000-0.034) ng/mL Total Protein (6.3-8.2) g/dL Thrombosis Risk Factor Assmnt - Choose All That Apply Any of the Below Risk Factors Present?: Yes Each Factor Represents 1 point: Heart failure (<1month), Obesity (BMI >25) Other Risk Factors: Yes Each Risk Factor Represents 2 Points: Age 61-74 years Each Risk Factor Represents 3 Points: History of DVT/PE Other congenital or acquired thrombophilia - If yes, enter type in comment: No Each Risk Factor Represents 5 Points: Major surgery lasting over 3 hours Thrombosis Risk Factor Assessment Total Risk Factor Score: 12 Thrombosis Risk Factor Assessment Level: High Risk
--- NOTE | 2022-07-17 11:21 | P.NPCON ---
History of Present Illness - Reason for Consult chronic renal failure - History of Present Illness Patient is a 71-year-old male with history of hypertension, type 2 diabetes, coronary artery disease status post coronary artery bypass surgery, chronic kidney disease NKF stage 4-5 secondary to nephrosclerosis with baseline creatinine around 4 mg/dL. Previously it had been around 3.5-4. Patient has a history of breast cancer maintained on chemotherapy and scheduled for surgery next week. Patient is admitted to the hospital with complaints of shortness of breath and fluid overload. He is currently being diuresed. Patient was hospitalized about a month ago with fluid overload. He had been diuresed and renal replacement therapy was discussed at that time however patient had improved therefore it was not initiated. Serum creatinine 3.8 on 06/06/2022. Started on Lasix 80 mg IV every 12 hours. Patient is voiding. Serum creatinine at 4.0 mg/dL. Blood pressure is not low. Review of Systems As per HPI. Other systems negative Past Medical History Past Medical History: Atrial Fibrillation, Atrial Flutter, Coronary Artery Disease (CAD), Cancer, Diabetes Mellitus, Deep Vein Thrombosis (DVT), Eye Disorder, Hyperlipidemia, Hypertension, Myocardial Infarction ([place]), Neurologic Disorder, Osteoarthritis (OA), Prostate Disorder, Sleep Apnea/CPAP/BIPAP Additional Past Medical History / Comment(s): Current right breast cancer. HX OF POLYPS, BLOOD IN STOOL, uti's. Hx tailbone fracture, neuropathy to feet. Blind in right eye. Hx encephalopathy, meningioma with left sided weakness, cannot use left leg, wheelcahir bound. PT CAN'T HAVE ANY VACCINES THAT ARE LIVE VIRUSES. PLEASE USE PAPER TAPE ONLY(PT HAS THIN SKIN). uses slide board at home to transfer pt to w/c, with 2 person assist pt can stand/pivot to chair. Last Myocardial Infarction Date:: 02-11-2005 History of Any Multi-Drug Resistant Organisms: None Reported Past Surgical History: Adenoidectomy, Cardiac Ablation, Cholecystectomy, Coronary Bypass/CABG, Heart Catheterization With Stent, Orthopedic Surgery, Tonsillectomy Additional Past Surgical History / Comment(s): Triple bypass, Meningioma Removed from Brain 04/2013, peg tube- removed 9 years ago, DESTINEY FILTER, BILATERAL CATARACTS- LENS IMPLANTS, COLONOSCOPY/POLYPECTOMY, RIGHT KNEE ARTHROSCOPY. Past Anesthesia/Blood Transfusion Reactions: No Reported Reaction Date of Last Stent Placement:: 2004 Past Psychological History: Depression Additional Psychological History / Comment(s): PT UNABLE TO AMBULATE BUT ABLE TO STAND WITH ASSIST OF 2 /PIVOT TO W/C OR MOTORIZED CHAIR. 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 Smoking Status: Never smoker Past Alcohol Use History: None Reported Past Drug Use History: None Reported - Past Family History Father History Unknown: Yes Family Medical History: Congestive Heart Failure (CHF) Mother History Unknown: Yes Additional Family Medical History / Comment(s): STILL ALIVE AT AGE 90 IN [facility] Medications and Allergies Home Medications Medication Instructions Recorded Confirmed Type Tamsulosin HCl [Flomax] 0.4 mg PO BID 06/19/15 07/16/22 History amLODIPine [Norvasc] 5 mg PO DAILY 07/09/16 07/16/22 History Ferrous Sulfate [Iron (65 MG 325 mg PO DAILY 03/21/21 07/16/22 History Elemental)] INSULIN ASPART (NovoLOG) [NovoLOG 25 unit SQ AC-BID 03/21/21 07/16/22 History (formulary)] Pravastatin Sodium [Pravachol] 40 mg PO HS 03/21/21 07/16/22 History allopurinoL [Zyloprim] 100 mg PO DAILY 03/21/21 07/16/22 History hydrALAZINE HCL [Apresoline] 75 mg PO BID 03/21/21 07/16/22 History Cholecalciferol [Vitamin D3 (25 25 mcg PO DAILY 01/13/22 07/16/22 History Mcg = 1000 Iu)] Amiodarone [Cordarone] 100 mg PO DAILY 02/07/22 07/16/22 History Folic Acid 0.8 mg PO DAILY 02/07/22 07/16/22 History Metoprolol Succinate (ER) [Toprol 25 mg PO DAILY 02/07/22 07/16/22 History XL] Cholestyramine (with Sugar) 4 gm PO BID 06/03/22 07/16/22 History [Questran Packet] Diphenoxylate HCl/Atropine 1 tab PO DAILY 06/03/22 07/16/22 History [Lomotil 2.5-0.025 mg Tablet] Lidocaine-Prilocaine Cream [Emla 1 applic TOPICAL DAILY PRN 06/03/22 07/16/22 History Cream 2.5%/2.5%] calcitrioL [Calcitriol] 0.25 mcg PO MO 06/03/22 07/16/22 History Apixaban [Eliquis] 2.5 mg PO BID #0 06/07/22 07/16/22 Rx Docusate [Colace] 100 mg PO BID PRN cap 06/07/22 07/16/22 Rx Insulin Glargine,Hum.rec.anlog 30 units SQ HS #0 06/07/22 07/16/22 Rx [Lantus Solostar Pen] Famotidine [Pepcid] 20 mg PO DAILY PRN 07/16/22 07/16/22 History Furosemide [Lasix] 40 mg PO BID 07/16/22 07/16/22 History Allergies Allergy/AdvReac Type Severity Reaction Status Date / Time Penicillins Allergy Unknown Rash/Hives Verified 07/16/22 20:53 adhesive AdvReac skin tears Verified 07/16/22 20:53 Physical Exam Vitals: Vital Signs Temp Pulse Pulse Resp BP BP Pulse Ox 07/17/22 08:45 97.8 F 63 20 145/69 96 07/17/22 04:00 97.4 F L 60 18 144/73 97 07/17/22 01:46 18 07/17/22 00:00 97.6 F 59 L 18 142/55 96 07/16/22 22:30 58 L 20 07/16/22 21:52 97.5 F L 58 L 20 127/66 91 L 07/16/22 21:04 65 18 140/65 96 07/16/22 20:00 97.8 F 67 20 135/60 95 07/16/22 18:00 67 20 135/68 96 07/16/22 17:17 60 20 135/67 95 07/16/22 15:23 97.6 F 66 18 130/72 96 Intake and Output 07/16/22 07/17/22 07/17/22 22:59 06:59 14:59 Output Total 620 Balance -620 Output: Urine 620 Other: Voiding Method Urinal # Voids 1 Weight 99.79 kg 103 kg Patient is awake, comfortable, no acute distress Examination of the heart S1 and S2 Examination of the lungs bilateral breath sounds are heard Decreased breath sounds at the bases with basilar crackles Abdomen is soft distended nontender Examination lower extremities shows chronic skin changes patient does not move his legs much. 1+ edema noted. Results - Lab Results Most recent lab results Calcium 10.0 mg/dL (8.4-10.2) 07/16/22 17:32 07/16/22 17:32 07/16/22 17:32 Assessment and Plan Assessment: 1. Acute kidney injury cardiorenal 2. Chronic kidney disease NKF stage V with baseline creatinine around 2.8-4 mg/dL. Etiology is nephrosclerosis 3. Volume overload 4. CHF acute on top of chronic, diastolic. Ejection fraction 50-55% in May 2022 5. [id number] aortic stenosis with peak gradient of 28 and mean gradient of 16 6. CK D mineral bone disorder maintained on Rocaltrol 7. Breast cancer status post chemotherapy being followed by Dr. Cameron and scheduled for surgery next week Plan: Continue with IV Lasix I discussed with the patient regarding need for starting renal replacement therapy this admission as this is his second admission for volume overload in less than 2 months. At this time patient is reluctant and states that he would like to wait till after surgery if it is possible. I have advised the patient that we will monitor his response to diuretics as well as labs over the next 24- 48 hours and if there is no good response patient will need to start renal repla cement therapy this admission. Thank you for the consultation. We'll continue to follow the patient with you during his hospitalization
[2022-07-17 11:54] LABS: Glucose,Whole Blood 145 mg/dL (70-110)
[2022-07-17] MEDS: TAMSULOSIN 0.4 MG CAP.ER.24H PO SCH ×2 (11:54→20:00)
[2022-07-17] MEDS: METOPROLOL SUCCINATE (ER) 25 MG TAB.ER.24H PO SCH (11:55)
[2022-07-17] MEDS: hydrALAZINE HCL 50 MG TAB PO SCH ×2 (11:55→20:00)
--- NOTE | 2022-07-17 11:55 | P.CNPUL ---
History of Present Illness Consult date: 07/17/22 Requesting physician: Pablo Jon Reason for consult: dyspnea, hypoxemia, abnormal CXR/CT Chief complaint: Shortness of breath. History of present illness: Pulmonary consult dated 07/17/2022. 72-year-old male who presented to the emergency department on July 16, complaining of shortness of breath. He apparently been having shortness breath, which is been progressively worse over the course of many days and even a week or so. His breathing becomes much worse when he lays flat. He does have a dry nonproductive cough. No fever or chills. No chest pain. He was admitted back in May, for a similar episode. He has a history of right breast cancer, atrial fibrillation/flutter, CAD, diabetes mellitus, DVT, GERD, hyperlipidemia, hypertension, myocardial infarction, and sleep apnea. White count 3.7, hemoglobin 9.2, hematocrit 28.7, and platelet count 228,000. His d-dimer was 1.35. Sodium 141, potassium 3.8, chlorides 104, CO2 22, anion gap 15, BUN 51, creatinine 4.34. The patient's troponin was 0.034, 0.036, and 0.037. N- terminal proBNP was 1270. TSH was normal. Chest x-ray shows cardiomegaly, pulmonary vascular congestion, and bilateral pleural effusions. A perfusion lung scan was indeterminate. The patient was on a factor X a inhibitor anyway. Review of Systems REVIEW OF SYSTEMS: CONSTITUTIONAL: [Negative.] NEUROLOGIC: [ Negative.] HEENT: [ Negative.] CARDIAC: Orthopnea. PULMONARY: Shortness of breath, and dry cough. GI: [Negative.] : [Negative.] RHEUMATOLOGIC: [ Negative.] IMMUNOLOGIC: [ Negative.] ENDOCRINE: [Negative. ] DERMATOLOGIC: [Negative.] Past Medical History Past Medical History: Atrial Fibrillation, Atrial Flutter, Coronary Artery Disease (CAD), Cancer, Diabetes Mellitus, Deep Vein Thrombosis (DVT), Eye Disorder, Hyperlipidemia, Hypertension, Myocardial Infarction (MT), Neurologic Disorder, Osteoarthritis (OA), Prostate Disorder, Sleep Apnea/CPAP/BIPAP Additional Past Medical History / Comment(s): Current right breast cancer. HX OF POLYPS, BLOOD IN STOOL, uti's. Hx tailbone fracture, neuropathy to feet. Blind in right eye. Hx encephalopathy, meningioma with left sided weakness, cannot use left leg, wheelcahir bound. PT CAN'T HAVE ANY VACCINES THAT ARE LIVE VIRUSES. PLEASE USE PAPER TAPE ONLY(PT HAS THIN SKIN). uses slide board at home to transfer pt to w/c, with 2 person assist pt can stand/pivot to chair. Last Myocardial Infarction Date:: 02-11-2005 History of Any Multi-Drug Resistant Organisms: None Reported Past Surgical History: Adenoidectomy, Cardiac Ablation, Cholecystectomy, Coronary Bypass/CABG, Heart Catheterization With Stent, Orthopedic Surgery, Tonsillectomy Additional Past Surgical History / Comment(s): Triple bypass, Meningioma Removed from Brain 04/2013, peg tube- removed 9 years ago, DESTINEY FILTER, BILATERAL CATARACTS- LENS IMPLANTS, COLONOSCOPY/POLYPECTOMY, RIGHT KNEE ARTHROSCOPY. Past Anesthesia/Blood Transfusion Reactions: No Reported Reaction Date of Last Stent Placement:: 2004 Past Psychological History: Depression Additional Psychological History / Comment(s): PT UNABLE TO AMBULATE BUT ABLE TO STAND WITH ASSIST OF 2 /PIVOT TO W/C OR MOTORIZED CHAIR. 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 Smoking Status: Never smoker Past Alcohol Use History: None Reported Past Drug Use History: None Reported - Past Family History Father History Unknown: Yes Family Medical History: Congestive Heart Failure (CHF) Mother History Unknown: Yes Additional Family Medical History / Comment(s): STILL ALIVE AT AGE 90 IN [facility] Medications and Allergies Home Medications Medication Instructions Recorded Confirmed Type Tamsulosin HCl [Flomax] 0.4 mg PO BID 06/19/15 07/16/22 History amLODIPine [Norvasc] 5 mg PO DAILY 07/09/16 07/16/22 History Ferrous Sulfate [Iron (65 MG 325 mg PO DAILY 03/21/21 07/16/22 History Elemental)] INSULIN ASPART (NovoLOG) [NovoLOG 25 unit SQ AC-BID 03/21/21 07/16/22 History (formulary)] Pravastatin Sodium [Pravachol] 40 mg PO HS 03/21/21 07/16/22 History allopurinoL [Zyloprim] 100 mg PO DAILY 03/21/21 07/16/22 History hydrALAZINE HCL [Apresoline] 75 mg PO BID 03/21/21 07/16/22 History Cholecalciferol [Vitamin D3 (25 25 mcg PO DAILY 01/13/22 07/16/22 History Mcg = 1000 Iu)] Amiodarone [Cordarone] 100 mg PO DAILY 02/07/22 07/16/22 History Folic Acid 0.8 mg PO DAILY 02/07/22 07/16/22 History Metoprolol Succinate (ER) [Toprol 25 mg PO DAILY 02/07/22 07/16/22 History XL] Cholestyramine (with Sugar) 4 gm PO BID 06/03/22 07/16/22 History [Questran Packet] Diphenoxylate HCl/Atropine 1 tab PO DAILY 06/03/22 07/16/22 History [Lomotil 2.5-0.025 mg Tablet] Lidocaine-Prilocaine Cream [Emla 1 applic TOPICAL DAILY PRN 06/03/22 07/16/22 History Cream 2.5%/2.5%] calcitrioL [Calcitriol] 0.25 mcg PO MO 06/03/22 07/16/22 History Apixaban [Eliquis] 2.5 mg PO BID #0 06/07/22 07/16/22 Rx Docusate [Colace] 100 mg PO BID PRN cap 06/07/22 07/16/22 Rx Insulin Glargine,Hum.rec.anlog 30 units SQ HS #0 06/07/22 07/16/22 Rx [Lantus Solostar Pen] Famotidine [Pepcid] 20 mg PO DAILY PRN 07/16/22 07/16/22 History Furosemide [Lasix] 40 mg PO BID 07/16/22 07/16/22 History Allergies Allergy/AdvReac Type Severity Reaction Status Date / Time Penicillins Allergy Unknown Rash/Hives Verified 07/16/22 20:53 adhesive AdvReac skin tears Verified 07/16/22 20:53 Physical Exam Osteopathic Statement: *. No significant issues noted on an osteopathic structural exam other than those noted in the History and Physical/Consult. Vitals: Vital Signs Temp Pulse Pulse Resp BP BP Pulse Ox 07/17/22 08:45 97.8 F 63 20 145/69 96 07/17/22 04:00 97.4 F L 60 18 144/73 97 07/17/22 01:46 18 07/17/22 00:00 97.6 F 59 L 18 142/55 96 07/16/22 22:30 58 L 20 07/16/22 21:52 97.5 F L 58 L 20 127/66 91 L 07/16/22 21:04 65 18 140/65 96 07/16/22 20:00 97.8 F 67 20 135/60 95 07/16/22 18:00 67 20 135/68 96 07/16/22 17:17 60 20 135/67 95 07/16/22 15:23 97.6 F 66 18 130/72 96 Intake and Output 07/16/22 07/17/22 07/17/22 22:59 06:59 14:59 Output Total 620 Balance -620 Output: Urine 620 Other: Voiding Method Urinal # Voids 1 Weight 99.79 kg 103 kg No acute distress, oriented 3. No significant respiratory difficulty, conver sational dyspnea, or use of accessory muscles. The patient's on 2 L of oxygen. HEENT examination is grossly unremarkable. Neck supple. Full range of motion. No adenopathy thyromegaly or neck vein distention. Cardiovascular examination reveals regular rhythm rate. S1-S2 normal. No S3 or S4. No discernible murmur noted. Heart rate 63 bpm. Lungs reveal mild bibasilar crackles. No wheezes. No rhonchi. Breath sounds are equal bilaterally. 2 L saturation is 96%. Abdomen soft bowel sounds are heard. No masses or tenderness. Extremities are intact. No cyanosis or clubbing. Mild edema present. Skin is without rash or lesion. Neurologic examination is brief but nonfocal. Results - Laboratory Findings CBC and BMP: 07/16/22 17:32 07/16/22 17:32 PT/INR, D-dimer PT 11.8 sec (9.0-12.0) 07/16/22 17:32 INR 1.1 (<1.2) 07/16/22 17:32 D-Dimer 1.35 mg/L FEU (<0.60) H 07/16/22 17:32 Abnormal lab findings: Abnormal Labs 07/16/22 07/16/22 07/16/22 17:32 17:32 17:32 WBC 3.7 L RBC 2.94 L Hgb 9.2 L D Hct 28.7 L Lymphocytes # 0.3 L D-Dimer 1.35 H BUN 51 H Creatinine 4.34 H Glucose 183 H POC Glucose (mg/dL) Troponin I Total Protein 6.0 L 07/16/22 07/16/22 07/16/22 21:21 21:48 23:30 WBC RBC Hgb Hct Lymphocytes # D-Dimer BUN Creatinine Glucose POC Glucose (mg/dL) 158 H Troponin I 0.036 H* 0.037 H* Total Protein 07/17/22 06:18 WBC RBC Hgb Hct Lymphocytes # D-Dimer BUN Creatinine Glucose POC Glucose (mg/dL) 123 H Troponin I Total Protein - Diagnostic Findings Chest x-ray: image reviewed Assessment and Plan Assessment: Shortness of breath, with acute hypoxemic respiratory failure, mild to moderate in severity, secondary to CHF. Doubt pulmonary embolism. History of right breast cancer, with anticipated mastectomy in the near future. History of atrial fibrillation/flutter. History of CAD and previous myocardial infarction. History of diabetes mellitus. History of DVT. History of gastroesophageal reflux disease. Hyperlipidemia. History of hypertension. Osteoarthritis. History of sleep apnea syndrome. Plan: Plan dated 07/17/2022. The patient's clinical picture really fits heart failure more than anything else. It has been progressive, with some mild lower extremity edema, and orthopnea. His chest x-ray is consistent with that diagnosis. The patient continues on a factor X a inhibitor, making pulmonary embolism less likely. We will continue to follow make recommendations along the way. The patient is getting Lasix 80 mg IV every 12 hours. We did put a consult for general surgery, as the patient was to have a mastectomy in the near future. Additional recommendations and suggestions are forthcoming. Prognosis is guarded. Time with Patient: Greater than 30
--- NOTE | 2022-07-17 15:06 | P.GSCN ---
History of Present Illness Consult date: 07/17/22 History of present illness: CHIEF COMPLAINT: Shortness of breath HISTORY OF PRESENT ILLNESS: This is a 72-year-old male who presented to the hospital with complaints of shortness of breath. He has evidence of an acute CHF exacerbation and acute renal failure. Patient is currently on IV Lasix. He's being followed by cardiology, pulmonary and nephrology services. N ephrology following closely. Patient may require renal replacement. Surgical service has been consulted because patient has known right breast cancer and was scheduled for a mastectomy with Dr. Valdes on 07/21/2022 in the outpatient setting. Patient reports that he did 10 out of his chemo treatments. Patient also has a known history of atrial fibrillation and on Eliquis. Patient does have cardiac history of CABG. Patient denies any swelling or pain at the breast currently. He does have a port in the right chest wall. PAST MEDICAL HISTORY: see below plus CKD PAST SURGICAL HISTORY: See below MEDICATIONS: See below ALLERGIES: See below SOCIAL HISTORY: No illicit drug use. REVIEW OF SYSTEMS: CONSTITUTIONAL: Denies fever or chills. HEENT: Denies blurred vision, vision changes, or eye pain. Denies hemoptysis CARDIOVASCULAR: Denies chest pain or pressure. RESPIRATORY: No shortness of breath. GASTROINTESTINAL: See HPI for pertinent findings HEMATOLOGIC: Denies bleeding disorders. GENITOURINARY: Denies any blood in urine or increased urinary frequency. SKIN: Denies pruitis. Denies rash. PHYSICAL EXAM: VITAL SIGNS: Reviewed GENERAL: Well-developed in no acute distress. CHEST: Port right chest wall. Right breast nontender. ABDOMEN: Soft. Nondistended. Nontender NEUROLOGIC: Alert and oriented. Cranial nerves II through XII grossly intact. Extremities: Lower extremity edema bilaterally LABORATORY DATA: WBC 3.7 HGB 9.2 plt 228 d-dimer 1.35 Sodium 141 potassium 3.8 creatinine 4.34 IMAGING: ASSESSMENT: 1. Right breast cancer status post chemotherapy. Patient with initial plans for mastectomy on 07/21/2022 outpatient 2. Acute CHF exacerbation 3. Acute renal failure PLAN: -Continue treatment for CHF exacerbation per cardiology service -Continue management of acute renal failure per nephrology -Continue supportive care -Further recommendations forthcoming per surgeon Physician Qi Specialist note has been reviewed by physician. Signing provider agrees with the documented findings, assessment, and plan of care. I have personally seen and examined the patient, reviewed the TEMPLATE LAYOUT WORKER /PAs history, exam and MDM and agree with the assessment and plan as written. Based on total visit time, I have performed more than 50% of the visit. As above: Patient well-known to our service. Patient with persistence shortness of breath after recent hospital stay. Pulmonary and nephrology assessment appreciated. Agree the patient likely would and if it most from initiation of dialysis at this time. He is considering. Will follow. Past Medical History Past Medical History: Atrial Fibrillation, Atrial Flutter, Coronary Artery Disease (CAD), Cancer, Diabetes Mellitus, Deep Vein Thrombosis (DVT), Eye Disorder, Hyperlipidemia, Hypertension, Myocardial Infarction (PR), Neurologic Disorder, Osteoarthritis (OA), Prostate Disorder, Sleep Apnea/CPAP/BIPAP Additional Past Medical History / Comment(s): Current right breast cancer. HX OF POLYPS, BLOOD IN STOOL, uti's. Hx tailbone fracture, neuropathy to feet. Blind in right eye. Hx encephalopathy, meningioma with left sided weakness, cannot use left leg, wheelcahir bound. PT CAN'T HAVE ANY VACCINES THAT ARE LIVE VIRUSES. PLEASE USE PAPER TAPE ONLY(PT HAS THIN SKIN). uses slide board at home to transfer pt to w/c, with 2 person assist pt can stand/pivot to chair. Last Myocardial Infarction Date:: 02-11-2005 History of Any Multi-Drug Resistant Organisms: None Reported Past Surgical History: Adenoidectomy, Cardiac Ablation, Cholecystectomy, Coronary Bypass/CABG, Heart Catheterization With Stent, Orthopedic Surgery, Tonsillectomy Additional Past Surgical History / Comment(s): Triple bypass, Meningioma Removed from Brain 04/2013, peg tube- removed 9 years ago, DESTINEY FILTER, BILATERAL CATARACTS- LENS IMPLANTS, COLONOSCOPY/POLYPECTOMY, RIGHT KNEE ARTHROSCOPY. Past Anesthesia/Blood Transfusion Reactions: No Reported Reaction Date of Last Stent Placement:: 2004 Past Psychological History: Depression Additional Psychological History / Comment(s): PT UNABLE TO AMBULATE BUT ABLE TO STAND WITH ASSIST OF 2 /PIVOT TO W/C OR MOTORIZED CHAIR. 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 Smoking Status: Never smoker Past Alcohol Use History: None Reported Past Drug Use History: None Reported - Past Family History Father History Unknown: Yes Family Medical History: Congestive Heart Failure (CHF) Mother History Unknown: Yes Additional Family Medical History / Comment(s): STILL ALIVE AT AGE 90 IN [facility] Medications and Allergies Home Medications Medication Instructions Recorded Confirmed Type Tamsulosin HCl [Flomax] 0.4 mg PO BID 06/19/15 07/16/22 History amLODIPine [Norvasc] 5 mg PO DAILY 07/09/16 07/16/22 History Ferrous Sulfate [Iron (65 MG 325 mg PO DAILY 03/21/21 07/16/22 History Elemental)] INSULIN ASPART (NovoLOG) [NovoLOG 25 unit SQ AC-BID 03/21/21 07/16/22 History (formulary)] Pravastatin Sodium [Pravachol] 40 mg PO HS 03/21/21 07/16/22 History allopurinoL [Zyloprim] 100 mg PO DAILY 03/21/21 07/16/22 History hydrALAZINE HCL [Apresoline] 75 mg PO BID 03/21/21 07/16/22 History Cholecalciferol [Vitamin D3 (25 25 mcg PO DAILY 01/13/22 07/16/22 History Mcg = 1000 Iu)] Amiodarone [Cordarone] 100 mg PO DAILY 02/07/22 07/16/22 History Folic Acid 0.8 mg PO DAILY 02/07/22 07/16/22 History Metoprolol Succinate (ER) [Toprol 25 mg PO DAILY 02/07/22 07/16/22 History XL] Cholestyramine (with Sugar) 4 gm PO BID 06/03/22 07/16/22 History [Questran Packet] Diphenoxylate HCl/Atropine 1 tab PO DAILY 06/03/22 07/16/22 History [Lomotil 2.5-0.025 mg Tablet] Lidocaine-Prilocaine Cream [Emla 1 applic TOPICAL DAILY PRN 06/03/22 07/16/22 History Cream 2.5%/2.5%] calcitrioL [Calcitriol] 0.25 mcg PO MO 06/03/22 07/16/22 History Apixaban [Eliquis] 2.5 mg PO BID #0 06/07/22 07/16/22 Rx Docusate [Colace] 100 mg PO BID PRN cap 06/07/22 07/16/22 Rx Insulin Glargine,Hum.rec.anlog 30 units SQ HS #0 06/07/22 07/16/22 Rx [Lantus Solostar Pen] Famotidine [Pepcid] 20 mg PO DAILY PRN 07/16/22 07/16/22 History Furosemide [Lasix] 40 mg PO BID 07/16/22 07/16/22 History Allergies Allergy/AdvReac Type Severity Reaction Status Date / Time Penicillins Allergy Unknown Rash/Hives Verified 07/16/22 20:53 adhesive AdvReac skin tears Verified 07/16/22 20:53 Surgical - Exam Vital Signs Temp Pulse Resp BP Pulse Ox 97.6 F 66 18 130/72 96 07/16/22 15:23 07/16/22 15:23 07/16/22 15:23 07/16/22 15:23 07/16/22 15:23 Results - Labs 07/16/22 17:32 07/16/22 17:32 Abnormal Lab Results - Last 24 Hours (Table) 07/16/22 07/16/22 07/16/22 Range/Units 17:32 17:32 17:32 WBC 3.7 L (3.8-10.6) k/uL RBC 2.94 L (4.30-5.90) m/uL Hgb 9.2 L D (13.0-17.5) gm/dL Hct 28.7 L (39.0-53.0) % Lymphocytes # 0.3 L (1.0-4.8) k/uL D-Dimer 1.35 H (<0.60) mg/L FEU BUN 51 H (9-20) mg/dL Creatinine 4.34 H (0.66-1.25) mg/dL Glucose 183 H (74-99) mg/dL POC Glucose (mg/dL) (70-110) mg/dL Troponin I (0.000-0.034) ng/mL Total Protein 6.0 L (6.3-8.2) g/dL 07/16/22 07/16/22 07/16/22 Range/Units 21:21 21:48 23:30 WBC (3.8-10.6) k/uL RBC (4.30-5.90) m/uL Hgb (13.0-17.5) gm/dL Hct (39.0-53.0) % Lymphocytes # (1.0-4.8) k/uL D-Dimer (<0.60) mg/L FEU BUN (9-20) mg/dL Creatinine (0.66-1.25) mg/dL Glucose (74-99) mg/dL POC Glucose (mg/dL) 158 H (70-110) mg/dL Troponin I 0.036 H* 0.037 H* (0.000-0.034) ng/mL Total Protein (6.3-8.2) g/dL 07/17/22 07/17/22 Range/Units 06:18 11:53 WBC (3.8-10.6) k/uL RBC (4.30-5.90) m/uL Hgb (13.0-17.5) gm/dL Hct (39.0-53.0) % Lymphocytes # (1.0-4.8) k/uL D-Dimer (<0.60) mg/L FEU BUN (9-20) mg/dL Creatinine (0.66-1.25) mg/dL Glucose (74-99) mg/dL POC Glucose (mg/dL) 123 H 145 H (70-110) mg/dL Troponin I (0.000-0.034) ng/mL Total Protein (6.3-8.2) g/dL Diabetes panel 07/16/22 Range/Units 17:32 Sodium 141 (137-145) mmol/L Potassium 3.8 (3.5-5.1) mmol/L Chloride 104 (98-107) mmol/L Carbon Dioxide 22 (22-30) mmol/L BUN 51 H (9-20) mg/dL Creatinine 4.34 H (0.66-1.25) mg/dL Glucose 183 H (74-99) mg/dL Calcium 10.0 (8.4-10.2) mg/dL AST 22 (17-59) U/L ALT 18 (4-49) U/L Alkaline Phosphatase 81 (38-126) U/L Total Protein 6.0 L (6.3-8.2) g/dL Albumin 3.9 (3.5-5.0) g/dL Thyroid panel 07/17/22 Range/Units 08:50 TSH 4.020 (0.465-4.680) mIU/L Calcium panel 07/16/22 Range/Units 17:32 Calcium 10.0 (8.4-10.2) mg/dL Albumin 3.9 (3.5-5.0) g/dL Pituitary panel 07/16/22 07/17/22 Range/Units 17:32 08:50 Sodium 141 (137-145) mmol/L Potassium 3.8 (3.5-5.1) mmol/L Chloride 104 (98-107) mmol/L Carbon Dioxide 22 (22-30) mmol/L BUN 51 H (9-20) mg/dL Creatinine 4.34 H (0.66-1.25) mg/dL Glucose 183 H (74-99) mg/dL Calcium 10.0 (8.4-10.2) mg/dL TSH 4.020 (0.465-4.680) mIU/L Adrenal panel 07/16/22 Range/Units 17:32 Sodium 141 (137-145) mmol/L Potassium 3.8 (3.5-5.1) mmol/L Chloride 104 (98-107) mmol/L Carbon Dioxide 22 (22-30) mmol/L BUN 51 H (9-20) mg/dL Creatinine 4.34 H (0.66-1.25) mg/dL Glucose 183 H (74-99) mg/dL Calcium 10.0 (8.4-10.2) mg/dL Total Bilirubin 0.2 (0.2-1.3) mg/dL AST 22 (17-59) U/L ALT 18 (4-49) U/L Alkaline Phosphatase 81 (38-126) U/L Total Protein 6.0 L (6.3-8.2) g/dL Albumin 3.9 (3.5-5.0) g/dL
[2022-07-17 16:43] LABS: Glucose,Whole Blood 143 mg/dL (70-110)
[2022-07-17 19:41] LABS: Glucose,Whole Blood 228 mg/dL (70-110)
[2022-07-17] MEDS: PRAVASTATIN SODIUM 40 MG TAB PO SCH (20:00)
[2022-07-17] MEDS: INSULIN DETEMIR (LEVEMIR) 100 UNIT/ML SYR SQ SCH (20:01)
[2022-07-18 06:05] LABS: Glucose,Whole Blood 121 mg/dL (70-110)
[2022-07-18] MEDS: INSULIN ASPART (NovoLOG) 100 UNIT/ML VIAL SQ SCH ×4 (06:28→21:41)
[2022-07-18 08:15] LABS: Calcium 9.7 mg/dL (8.4-10.2); Potassium 3.7 mmol/L (3.5-5.1)
[2022-07-18] MEDS: FOLIC ACID 1 MG TAB PO SCH (08:27)
[2022-07-18] MEDS: CHOLESTYRAMINE (WITH SUGAR) 4 GM PACKET PO SCH ×2 (08:27→21:40)
[2022-07-18] MEDS: amLODIPine 5 MG TAB PO SCH (08:27)
[2022-07-18] MEDS: AMIODARONE 100 MG TAB PO SCH (08:27)
[2022-07-18] MEDS: hydrALAZINE HCL 50 MG TAB PO SCH ×2 (08:27→21:40)
[2022-07-18] MEDS: CHOLECALCIFEROL 25 MCG (1000 IU) TABLET PO SCH (08:27)
[2022-07-18] MEDS: FUROSEMIDE 10 MG/ML 10 ML VIAL IV SCH ×2 (08:27→21:40)
[2022-07-18] MEDS: DIPHENOX-ATROP 2.5-0.025 MG 1 EACH TAB PO SCH (08:27)
[2022-07-18] MEDS: allopurinoL 100 MG TAB PO SCH (08:27)
[2022-07-18] MEDS: FERROUS SULFATE 325 MG TAB PO SCH (08:27)
[2022-07-18] MEDS: METOPROLOL SUCCINATE (ER) 25 MG TAB.ER.24H PO SCH (08:28)
[2022-07-18] MEDS: TAMSULOSIN 0.4 MG CAP.ER.24H PO SCH ×2 (08:28→21:41)
[2022-07-18] MEDS: APIXABAN 2.5 MG TABLET PO SCH ×2 (08:28→21:41)
--- NOTE | 2022-07-18 08:59 | P.PN ---
Subjective Progress Note Date: 07/18/22 HISTORY OF PRESENT ILLNESS: this is a 72-year-old male with a previous medical history significant for hy pertension and hypertensive cardiovascular disease with left ventricular hypertrophy, hyperlipidemia, diabetes mellitus type 2, with diabetic polyneuropathy, history of coronary artery disease status post coronary artery bypass graft x3 followed by stent, history of atrial fibrillation status post a blation on long-term eliquis, history of meningioma status post resection back in April 2013 with left-sided weakness, history of chronic kidney disease stage IV currently under the care of nephrology with plan for CAPD at later date, history of anemia of chronic kidney disease, history of secondary hyperparathyroidism. Patient also has history of newly diagnosed breast cancer on the right side status post biopsy which revealed invasive moderately differentiated ductal carcinoma status post chemotherapy with plan for radiation therapy following and then surgical intervention. Patient had a recent hospitalization in May for acute diastolic heart failure with right-sided pleural effusion and diarrhea secondary to chemotherapy. He was seen by cardiology oncology and nephrology. Echocardiogram at that time revealed EF of 55%, aortic sclerosis with mild to moderate aortic stenosis. Patient was discharged to home with plan for outpatient follow-up. A chest x-ray done as an outpatient on July 03 revealed stable small to moderate size right pleural effusion with cardiomegaly. Patient had an appointment with Dr. Valdes yesterday thought to have significant shortness of breath and was instructed to come in to the hospital for further evaluation. Patient has had continued shortness of breath and worse over the past few days with cough, exertional dyspnea. Patient came into [facility] emergency center for evaluation. He was found to be afebrile, heart rate 80, blood pressure 114/62, pulse ox 97% on room air. WBC 3.3, hemoglobin 7, platelet count 310. INR 1.1. Sodium 141, potassium 3.5, chloride 108, CO2 20, BUN 38 creatinine 3.2. Glucose 216. Liver function tests normal. Troponin negative on 3 draws. Albumin 3.5. ProBNP 1120. Chest x-ray reveals pulmonary vascular congestion and bilateral pleural effusions. Correlate with BNP for congestive heart failure. VQ scan was intermediate probability for pulmonary embolism. Patient was admitted to the cardiac stepdown unit and cardiology consult and nephrology consult ordered. Will add in consult for oncology, patient's oncologist is Dr. Cameron. He has been started on Lasix 40 mg IV push every 8 hours. 07/18: Patient states that his breathing is better today. He still has a cough with clear sputum production. Patient is unable to lay flat without difficulty breathing. He states he only slept 3-4 hours last night. He ate his oatmeal this morning other who does not look appetizing. Patient has been seen and followed by cardiology, pulmonary medicine and general surgery. Pulmonary medicine has reviewed VQ scan feel this is low probability for pulmonary embolism. Patient discussed that he would like to postpone surgery which is scheduled for Thursday. He has been afebrile, heart rate 62, blood pressure 168/77, pulse ox 90% on 2 L nasal cannula. division superintendent is atrial fibrillation with controlled rate. Repeat lab work reveals electrolytes normal, BUN 49 creatinine 4.78. Blood sugar 124. Blood blood glucose running between 121 and 228. Patient remains on Lasix 80 mg every 12 hours. Weights appear to be an accurate. Plan to monitor patient another 24-48 hours and discharged home. Doubt the patient will require home oxygen therapy but will need to be assessed prior to discharge. REVIEW OF SYSTEMS: Constitutional: No documented fever, no chills, no night sweats. No weight change. positive for weakness, fatigue or lethargy. No daytime sleepiness. HEENT: No headache. No blurred vision or double vision, no loss of vision. No loss of Hearing, no ringing in the ears, no dizziness. No nasal drainage or congestion. No epistaxis. No sore throat. Lungs: positive for shortness of breath-improving, no cough, no sputum production. No wheezing. Reports dyspnea with activity. Cardiovascular: No chest pain, reported lower extremity edema. No palpitations. Reported paroxysmal nocturnal dyspnea. Reports orthopnea. No lightheadedness or dizziness. No syncopal episodes. Abdominal: Reports no abdominal pain. No nausea, vomiting. Reports diarrhea. No constipation. No bloody or tarry stools reports loss of appetite. Genitourinary: No dysuria, increased frequency, urgency. No urinary retention. Musculoskeletal: No myalgias. positive for chronic left sided weakness, positive for gait dysfunction, no frequent falls. positive for back pain. positive for neck pain. Integumentary: No wounds, no lesions. No rash or pruritus. No unusual brui sing. No change in hair or nails. Neurologic: No aphasia. No facial droop. No change in mentation. No head injury. No headache, positive for left sided weakness and left foot drop. Psychiatric: positive for depression. No anxiety. No mood swings. Endocrine: No abnormal blood sugars. No weight change. PHYSICAL EXAMINATION: General: this is a 72-year-old male who is sitting up in bed appears to be in no respiratory distress at rest. HEENT: Head is atraumatic, normocephalic, pupils were equal round reactive to light and recommendation, extraocular muscle movement were intact, sclera destiny cteric, conjunctivae were pale, mucous membranes of the mouth are somewhat dry. Neck: Supple, no JVP, normal carotid upstroke bilaterally, no lymphadenopathy. Chest: Decreased breath sounds at the bases, few rhonchi, no expiratory wheezes, no chest wall tenderness, no intercostal retractions. Heart: First heart sound is normal, second heart sounds normal, irregularly irregular, there is systolic ejection murmur 2/6 located in the left sternal border. Abdomen: Soft, nontender, nondistended, positive bowel sounds. Extremities: There is trace edema to the bilateral lower extremities left greater than right no calf tenderness DP +2 bilaterally. Neurologic examination: Patient is awake alert and oriented X3 , cranial nerves II-12 appear grossly intact, there is left-sided weakness with left foot drop. ASSESSMENT AND PLAN: 1. Acute diastolic heart failure with right pleural effusion. Continue patient on metoprolol XL 25 mg orally once every day, continue patient on Lasix 80 mg IV push every 12 hours, monitor input and output and daily weight, continue patient also on hydralazine 75 mg orally twice every day, cardiology consultation appreciated. Cardiology and pulmonary medicine consult appreciated. 2. Right-sided breast cancer status post chemotherapy. Consult with Dr. Valdes appreciated. 3. Right pleural effusion with atelectasis. 4. Bicytopenia secondary to cancer. Continue to monitor. 6. History of CAD post CABG as well as PCI and stent placement. Continue patient on metoprolol XL 25 mg once every day, pravastatin 40 mg at bedtime. 7. History of paroxysmal atrial fibrillation. Continue patient on Eliquis 5 mg orally twice every day, continue amiodarone 100 mg orally once every day, metoprolol XL 25 mg orally once every day. 8. Hypertension and hypertensive cardiovascular disease. Continue patient on amlodipine 5 mg once every day, continue with metoprolol ER 25 mg orally once every day, monitor the patient blood pressure very closely. 9. Hyperlipidemia. Continue patient on pravastatin 40 mg at bedtime, monitor lipid panel, keep LDL 55-70. 10. Chronic kidney disease stage IV. Avoid nephrotoxic agents, consult nephrology. 11. History of enlarged prostate. Continue Flomax 0.4 mg once every day, monitor for urinary retention. 12. Diabetes mellitus type 2. Continue Lantus 30 units at bedtime, monitor the patient blood glucose level and at bedtime with NovoLog scale 13. Diabetic polyneuropathy. Stable. 14. History of DVT status post IVC filter placement, continue with Eliquis 5 mg orally twice every day. 15. Chronic gout. Continue patient on allopurinol 100 mg orally once every day. 16. History of meningioma with left-sided weakness. Physical therapy evaluation. Patient is a full code. DISCHARGE PLAN Return home in the next 24-48 hours Impression and plan of care have been directed as dictated by the signing physician. Nita Linn nurse practitioner acting as scribe for signing physician. Objective - Vital Signs Vital signs: Vital Signs Temp 97.5 F L 07/18/22 04:00 Pulse 62 07/18/22 04:00 Resp 17 07/18/22 04:00 BP 168/77 07/18/22 04:00 Pulse Ox 98 07/18/22 04:00 FiO2 Intake & Output 07/17/22 07/18/22 07/18/22 18:59 06:59 18:59 Intake Total 118 Output Total 300 550 Balance -182 -550 Weight 103 kg 101 kg Intake: Oral 118 Output: Urine 300 550 Other: Voiding Method Urinal Urinal # Voids 1 # Bowel Movements 1 - Labs CBC & Chem 7: 07/16/22 17:32 07/18/22 07:46 Labs: Abnormal Lab Results - Last 24 Hours (Table) 07/17/22 07/17/22 07/17/22 Range/Units 11:53 16:41 19:39 BUN (9-20) mg/dL Creatinine (0.66-1.25) mg/dL Glucose (74-99) mg/dL POC Glucose (mg/dL) 145 H 143 H 228 H (70-110) mg/dL 07/18/22 07/18/22 Range/Units 06:01 07:46 BUN 49 H (9-20) mg/dL Creatinine 4.78 H (0.66-1.25) mg/dL Glucose 124 H (74-99) mg/dL POC Glucose (mg/dL) 121 H (70-110) mg/dL
--- NOTE | 2022-07-18 09:54 | P.PN ---
Subjective Progress Note Date: 07/18/22 CHIEF COMPLAINT: CHF exacerbation HISTORY OF PRESENT ILLNESS: Patient to hospital for acute CHF exacerbation and acute renal failure. Patient reports shortness of breath is improving. He is on 2 L and 98%. He remains on IV lasix. Afebrile. Creatinine did go up to 4.78. Patient being evaluated by nephrology regarding possible dialysis. No new complaints. PHYSICAL EXAM: VITAL SIGNS: Reviewed. GENERAL: Well-developed in no acute distress. HEENT: No sclera icterus. Extraocular movements grossly intact. Moist buccal mucosa. Head is atraumatic, normocephalic. ABDOMEN: Soft. Nondistended. Nontender. NEUROLOGIC: Alert and oriented. Cranial nerves II through XII grossly intact. ASSESSMENT: 1. Right breast cancer status post chemotherapy. Patient will eventually need mastectomy outpatient when stable 2. Acute CHF exacerbation 3. Acute renal failure PLAN: -Continue treatment for CHF exacerbation per cardiology service -Continue management of acute renal failure per nephrology -Continue supportive care Physician Textile Scrap Salvager note has been reviewed by physician. Signing provider agrees with the documented findings, assessment, and plan of care. I have personally seen and examined the patient, reviewed the SAP BPC DEVELOPER /PAs history, exam and MDM and agree with the assessment and plan as written. Based on total visit time, I have performed more than 50% of the visit. As above: Patient feels somewhat better today. He is more strongly considering starting up dialysis at this time. Surgery for Thursday has not been canceled yet. We'll follow closely over the weekend. Objective - Vital Signs Vital signs: Vital Signs Temp 97.4 F L 07/18/22 08:23 Pulse 61 07/18/22 08:23 Resp 16 07/18/22 08:23 BP 155/71 07/18/22 08:23 Pulse Ox 98 07/18/22 08:23 FiO2 Intake & Output 07/17/22 07/18/22 07/18/22 18:59 06:59 18:59 Intake Total 118 Output Total 300 550 250 Balance -182 -550 -250 Weight 103 kg 101 kg Intake: Oral 118 Output: Urine 300 550 250 Other: Voiding Method Urinal Urinal Urinal # Voids 1 # Bowel Movements 1 - Labs CBC & Chem 7: 07/16/22 17:32 07/18/22 07:46 Labs: Abnormal Lab Results - Last 24 Hours (Table) 07/17/22 07/17/22 07/17/22 Range/Units 11:53 16:41 19:39 BUN (9-20) mg/dL Creatinine (0.66-1.25) mg/dL Glucose (74-99) mg/dL POC Glucose (mg/dL) 145 H 143 H 228 H (70-110) mg/dL 07/18/22 07/18/22 Range/Units 06:01 07:46 BUN 49 H (9-20) mg/dL Creatinine 4.78 H (0.66-1.25) mg/dL Glucose 124 H (74-99) mg/dL POC Glucose (mg/dL) 121 H (70-110) mg/dL
--- NOTE | 2022-07-18 10:38 | P.PN ---
Subjective Progress Note Date: 07/18/22 HISTORY OF PRESENT ILLNESS: The patient is a 72-year-old male who presents with symptoms of progressive dyspnea. He has a known history of chronic kidney disease, atrial fibrillation, breast cancer who was in the hospital about a months ago and has continued to be dyspneic, worse over the last few days with some worsening cough, PND and limited activity. He is dyspneic with minimal physical activity. He is status post CABG in 2004 but had no evidence to suggest recurrent ischemia. His most recent echocardiogram showed a preserved systolic function with mild to moderate aortic stenosis and a mean gradient of 16 mmHg. The patient denies any chest discomfort, dizziness or palpitations. He is limited in his physical activity and has stage IV chronic kidney disease. He has received 10 courses of chemotherapy and according to him has been stable. He had evidence of prior right-sided effusion but was not felt to be a good candidate for thoracentesis. On presentation his troponin were 0.034, 0.036 and 0.037. His creatinine is 4.34. His NT proBNP is 1270. His chest x-ray shows bilateral pleural effusion. He has a history of hypertension, hyperlipidemia and diabetes mellitus. Medications: Amiodarone 100 mg daily, Norvasc 5 mg daily, hydralazine 75 mg twice a day, insulin, pravastatin 40 mg daily, Toprol-XL 25 mg daily, Flomax. He is on Lasix 40 mg by mouth at home and was started on 80 mg IV twice a day since admission 07/18/2022 Patient examined this morning at the bedside. Patient denies chest pain or pressure. Patient states his shortness of breath has improved. He remains on IV Lasix twice a day. He is being followed by nephrology. Patient states he is now agreeable to undergo hemodialysis. Vital signs are stable. PHYSICAL EXAM: VITAL SIGNS: Reviewed. GENERAL: Well-developed in no acute distress. NECK: Supple. No JVD or thyromegaly LUNGS: Respirations even and unlabored. Lungs essentially clear to auscultation bilaterally. HEART: Regular rate and rhythm. S1 and S2 heard. + systolic murmur. EXTREMITIES: Normal range of motion. No clubbing or cyanosis. Peripheral pulses intact. 1+ lower extremity edema ASSESSMENT: 1. Worsening dyspnea, multifactorial with chronic kidney disease, heart failure with preserved systolic function. 2. Status post CABG with no evidence of acute ischemia 3. Stage IV chronic kidney disease 4. History of paroxysmal atrial fibrillation 5. History of hypertension 6. History of hyperlipidemia 7. History of diabetes 8. Breast cancer, post chemotherapy, followed by Dr. Cameron PLAN: Continue current cardiac medications Continue IV Lasix Nephrology following. Patient discussing initiating dialysis with Dr. Campos Monitor kidney function Further recommendations pending patient's course Nurse practitioner note has been reviewed by physician. Signing provider agrees with the documented findings, assessment, and plan of care. Objective - Vital Signs Vital signs: Vital Signs Temp 97.4 F L 07/18/22 08:23 Pulse 61 07/18/22 08:23 Resp 16 07/18/22 08:23 BP 155/71 07/18/22 08:23 Pulse Ox 98 07/18/22 08:23 FiO2 Intake & Output 07/17/22 07/18/22 07/18/22 18:59 06:59 18:59 Intake Total 118 Output Total 300 550 250 Balance -182 -550 -250 Weight 103 kg 101 kg Intake: Oral 118 Output: Urine 300 550 250 Other: Voiding Method Urinal Urinal Urinal # Voids 1 # Bowel Movements 1 - Labs CBC & Chem 7: 07/16/22 17:32 07/18/22 07:46 Labs: Abnormal Lab Results - Last 24 Hours (Table) 07/17/22 07/17/22 07/17/22 Range/Units 11:53 16:41 19:39 BUN (9-20) mg/dL Creatinine (0.66-1.25) mg/dL Glucose (74-99) mg/dL POC Glucose (mg/dL) 145 H 143 H 228 H (70-110) mg/dL 07/18/22 07/18/22 Range/Units 06:01 07:46 BUN 49 H (9-20) mg/dL Creatinine 4.78 H (0.66-1.25) mg/dL Glucose 124 H (74-99) mg/dL POC Glucose (mg/dL) 121 H (70-110) mg/dL
--- NOTE | 2022-07-18 10:55 | P.PN ---
Subjective Patient is seen for follow-up for chronic kidney disease and acute kidney injury and volume overload. He has underlying breast cancer maintained on chemotherapy. Patient is admitted to the hospital with shortness of breath and volume overload. He is currently being diuresed. His baseline creatinine is around 4- 3.8 mg/dL. Currently his creatinine is at 4.7 mg/dL. We have discussed renal replacement therapy on multiple occasions however claude wolf has preferred to wait and he has in fact improved during his previous hospitalizations however he is readmitted again with volume overload and at this point upon further discussion regarding renal replacement therapy patient is agreeable to start dialysis. He prefers PD however I have advised him that he will need to start with hemodialysis and then switch to peritoneal dialysis down the road. Patient would like to wait until Thursday. In the meantime we will continue with IV diuretics. Objective - Vital Signs Vital signs: Vital Signs Temp 97.4 F L 07/18/22 08:23 Pulse 61 07/18/22 08:23 Resp 16 07/18/22 08:23 BP 155/71 07/18/22 08:23 Pulse Ox 98 07/18/22 08:23 FiO2 Intake & Output 07/17/22 07/18/22 07/18/22 18:59 06:59 18:59 Intake Total 118 Output Total 300 550 250 Balance -182 -550 -250 Weight 103 kg 101 kg Intake: Oral 118 Output: Urine 300 550 250 Other: Voiding Method Urinal Urinal Urinal # Voids 1 # Bowel Movements 1 - Exam Awake, comfortable, no acute distress Examination of the heart S1 and S2 Examination of the lungs decreased breath sounds at the bases Abdomen is soft nontender Examination lower extremity shows edema 1+ bilaterally. Patient does not move his legs much. - Labs CBC & Chem 7: 07/16/22 17:32 07/18/22 07:46 Labs: Abnormal Lab Results - Last 24 Hours (Table) 07/17/22 07/17/22 07/17/22 Range/Units 11:53 16:41 19:39 BUN (9-20) mg/dL Creatinine (0.66-1.25) mg/dL Glucose (74-99) mg/dL POC Glucose (mg/dL) 145 H 143 H 228 H (70-110) mg/dL 07/18/22 07/18/22 Range/Units 06:01 07:46 BUN 49 H (9-20) mg/dL Creatinine 4.78 H (0.66-1.25) mg/dL Glucose 124 H (74-99) mg/dL POC Glucose (mg/dL) 121 H (70-110) mg/dL Assessment and Plan Assessment: 1. Acute kidney injury cardiorenal 2. Chronic kidney disease NKF stage V with baseline creatinine around 3.8-4 mg/dL. Etiology is nephrosclerosis 3. Volume overload 4. CHF acute on top of chronic, diastolic. Ejection fraction 50-55% in May 2022 5. [id number] aortic stenosis with peak gradient of 28 and mean gradient of 16 6. CK D mineral bone disorder maintained on Rocaltrol 7. Breast cancer status post chemotherapy being followed by Dr. Cameron and scheduled for surgery next week Plan: Continue with IV Lasix Patient will make his final decision regarding renal replacement therapy on Thursday. He is more accepting to it now.
--- NOTE | 2022-07-18 11:36 | P.PN ---
Subjective Progress Note Date: 07/18/22 Principal diagnosis: Shortness of breath. Pulmonary consult dated 07/17/2022. 72-year-old male who presented to the emergency department on July 16, complaining of shortness of breath. He apparently been having shortness breath, which is been progressively worse over the course of many days and even a week or so. His breathing becomes much worse when he lays flat. He does have a dry nonproductive cough. No fever or chills. No chest pain. He was admitted back in May, for a similar episode. He has a history of right breast cancer, atrial fibrillation/flutter, CAD, diabetes mellitus, DVT, GERD, hyperlipidemia, hypertension, myocardial infarction, and sleep apnea. White count 3.7, hemoglobin 9.2, hematocrit 28.7, and platelet count 228,000. His d-dimer was 1.35. Sodium 141, potassium 3.8, chlorides 104, CO2 22, anion gap 15, BUN 51, creatinine 4.34. The patient's troponin was 0.034, 0.036, and 0.037. N- terminal proBNP was 1270. TSH was normal. Chest x-ray shows cardiomegaly, pulmonary vascular congestion, and bilateral pleural effusions. A perfusion lung scan was indeterminate. The patient was on a factor X a inhibitor anyway. Progress note dated 07/18/2022. 72-year-old male who I saw yesterday in consultation with shortness of breath. The patient was to have a right mastectomy, for breast cancer, on July 21. He has a history of atrial fibrillation, CAD, diabetes, DVT, GERD, hyperlipidemia, hypertension, myocardial infarction, and sleep apnea. Chest x- ray showed cardiomegaly, pulmonary vascular congestion, and bilateral pleural effusions. Sodium 140, potassium 3.7, chlorides 105, CO2 23, anion gap 12, BUN 49, creatinine 4.78. Objective - Vital Signs Vital signs: Vital Signs Temp 97.4 F L 07/18/22 08:23 Pulse 57 L 07/18/22 11:19 Resp 16 07/18/22 11:19 BP 130/68 07/18/22 11:19 Pulse Ox 96 07/18/22 11:19 FiO2 Intake & Output 07/17/22 07/18/22 07/18/22 18:59 06:59 18:59 Intake Total 118 Output Total 300 550 250 Balance -182 -550 -250 Weight 103 kg 101 kg Intake: Oral 118 Output: Urine 300 550 250 Other: Voiding Method Urinal Urinal Urinal # Voids 1 # Bowel Movements 1 - Exam No acute distress, oriented 3. No significant respiratory difficulty, conversational dyspnea, or use of accessory muscles. The patient's on 2 L of oxygen. HEENT examination is grossly unremarkable. Neck supple. Full range of motion. No adenopathy thyromegaly or neck vein distention. Cardiovascular examination reveals regular rhythm rate. S1-S2 normal. No S3 or S4. A soft systolic murmur is noted. Heart rate 57 bpm. Lungs reveal mild bibasilar crackles. Diffuse bilateral rhonchi are noted. No wheezes. Breath sounds are equal bilaterally. 2 L saturation is 96%. Abdomen soft bowel sounds are heard. No masses or tenderness. Extremities are intact. No cyanosis or clubbing. Mild edema present. Skin is without rash or lesion. Neurologic examination is brief but nonfocal. - Labs CBC & Chem 7: 07/16/22 17:32 07/18/22 07:46 Labs: Abnormal Lab Results - Last 24 Hours (Table) 07/17/22 07/17/22 07/17/22 Range/Units 11:53 16:41 19:39 BUN (9-20) mg/dL Creatinine (0.66-1.25) mg/dL Glucose (74-99) mg/dL POC Glucose (mg/dL) 145 H 143 H 228 H (70-110) mg/dL 07/18/22 07/18/22 Range/Units 06:01 07:46 BUN 49 H (9-20) mg/dL Creatinine 4.78 H (0.66-1.25) mg/dL Glucose 124 H (74-99) mg/dL POC Glucose (mg/dL) 121 H (70-110) mg/dL Assessment and Plan Assessment: Shortness of breath, with acute hypoxemic respiratory failure, mild to moderate in severity, secondary to CHF. Doubt pulmonary embolism. History of right breast cancer, with anticipated mastectomy on 07/21/2022. History of atrial fibrillation/flutter. History of CAD and previous myocardial infarction. History of diabetes mellitus. History of DVT. History of gastroesophageal reflux disease. Hyperlipidemia. History of hypertension. Osteoarthritis. History of sleep apnea syndrome. Plan: Plan dated 07/17/2022. The patient's clinical picture really fits heart failure more than anything else. It has been progressive, with some mild lower extremity edema, and orthopnea. His chest x-ray is consistent with that diagnosis. The patient continues on a factor X a inhibitor, making pulmonary embolism less likely. We will continue to follow make recommendations along the way. The patient is getting Lasix 80 mg IV every 12 hours. We did put a consult for general surgery, as the patient was to have a mastectomy in the near future. Additional recommendations and suggestions are forthcoming. Prognosis is guarded. Plan dated 07/18/2022. The patient's feeling much better today. He remains on 2 L. He is much less short of breath. Labs, x-rays, and medications are reviewed. The patient is considering hemodialysis. He is not sure whether or not he is going to have surgery on Thursday. Prognosis is certainly guarded. Labs, x-rays, and medications are reviewed. We will continue to follow. Time with Patient: Less than 30
[2022-07-18 11:54] LABS: Glucose,Whole Blood 121 mg/dL (70-110)
[2022-07-18] MEDS ORDERED: ONDANSETRON 4 MG/2 ML VIAL IVP PRN (13:15)
[2022-07-18 16:27] LABS: Glucose,Whole Blood 128 mg/dL (70-110)
[2022-07-18] MEDS: ACETAMINOPHEN TAB 325 MG TAB PO PRN (17:21)
[2022-07-18 21:40] LABS: Glucose,Whole Blood 127 mg/dL (70-110)
[2022-07-18] MEDS: INSULIN DETEMIR (LEVEMIR) 100 UNIT/ML SYR SQ SCH (21:40)
[2022-07-18] MEDS: PRAVASTATIN SODIUM 40 MG TAB PO SCH (21:41)
--- NOTE | 2022-07-19 10:15 | P.PN ---
Subjective Progress Note Date: 07/19/22 Principal diagnosis: Shortness of breath. Pulmonary consult dated 07/17/2022. 72-year-old male who presented to the emergency department on July 16, complaining of shortness of breath. He apparently been having shortness breath, which is been progressively worse over the course of many days and even a week or so. His breathing becomes much worse when he lays flat. He does have a dry nonproductive cough. No fever or chills. No chest pain. He was admitted back in May, for a similar episode. He has a history of right breast cancer, atrial fibrillation/flutter, CAD, diabetes mellitus, DVT, GERD, hyperlipidemia, hypertension, myocardial infarction, and sleep apnea. White count 3.7, hemoglobin 9.2, hematocrit 28.7, and platelet count 228,000. His d-dimer was 1.35. Sodium 141, potassium 3.8, chlorides 104, CO2 22, anion gap 15, BUN 51, creatinine 4.34. The patient's troponin was 0.034, 0.036, and 0.037. N- terminal proBNP was 1270. TSH was normal. Chest x-ray shows cardiomegaly, pulmonary vascular congestion, and bilateral pleural effusions. A perfusion lung scan was indeterminate. The patient was on a factor X a inhibitor anyway. Progress note dated 07/18/2022. 72-year-old male who I saw yesterday in consultation with shortness of breath. The patient was to have a right mastectomy, for breast cancer, on July 21. He has a history of atrial fibrillation, CAD, diabetes, DVT, GERD, hyperlipidemia, hypertension, myocardial infarction, and sleep apnea. Chest x- ray showed cardiomegaly, pulmonary vascular congestion, and bilateral pleural effusions. Sodium 140, potassium 3.7, chlorides 105, CO2 23, anion gap 12, BUN 49, creatinine 4.78. Progress note dated 07/19/2022. This is a 72-year-old male seen in room 361. He currently is on 3 L of oxygen. No IV fluids. The patient mentioned to me that he may need hemodialysis. Inyaniv humphries, he was going to have a right mastectomy done by the general surgeon, on July 21. That may be on hold. No new labs today as yet. No chest x-ray today. The patient states that his breathing is stable. He denies any shortness of breath, cough, wheezing, phlegm production, or chest pain. Objective - Vital Signs Vital signs: Vital Signs Temp 97.4 F L 07/19/22 00:48 Pulse 56 L 07/19/22 00:48 Resp 15 07/19/22 00:48 BP 110/57 07/19/22 00:48 Pulse Ox 98 07/19/22 00:48 FiO2 Intake & Output 07/18/22 07/19/22 07/19/22 18:59 06:59 18:59 Intake Total 240 Output Total 600 240 Balance -600 0 Weight 101 kg Intake: Oral 240 Output: Urine 600 240 Other: Voiding Method Urinal Urinal - Exam No acute distress, oriented 3. No significant respiratory difficulty, conversational dyspnea, or use of accessory muscles. The patient's on 2 L of oxygen. HEENT examination is grossly unremarkable. Neck supple. Full range of motion. No adenopathy thyromegaly or neck vein distention. Cardiovascular examination reveals regular rhythm rate. S1-S2 normal. No S3 or S4. A soft systolic murmur is noted. Heart rate 56 bpm. Lungs reveal mild bibasilar crackles. Diffuse bilateral rhonchi are noted. No wheezes. Breath sounds are equal bilaterally. 2 L saturation is 98 %. Abdomen soft bowel sounds are heard. No masses or tenderness. Extremities are intact. No cyanosis or clubbing. Mild edema present. Skin is without rash or lesion. Neurologic examination is brief but nonfocal. - Labs CBC & Chem 7: 07/16/22 17:32 07/18/22 07:46 Labs: Abnormal Lab Results - Last 24 Hours (Table) 07/18/22 07/18/22 07/18/22 Range/Units 11:53 16:25 21:39 POC Glucose (mg/dL) 121 H 128 H 127 H (70-110) mg/dL Assessment and Plan Assessment: Shortness of breath, with acute hypoxemic respiratory failure, mild to moderate in severity, secondary to CHF. Doubt pulmonary embolism. History of right breast cancer, with anticipated mastectomy on 07/21/2022. History of atrial fibrillation/flutter. History of CAD and previous myocardial infarction. History of diabetes mellitus. History of DVT. History of gastroesophageal reflux disease. Hyperlipidemia. History of hypertension. Osteoarthritis. History of sleep apnea syndrome. Plan: Plan dated 07/17/2022. The patient's clinical picture really fits heart failure more than anything else. It has been progressive, with some mild lower extremity edema, and ortho pnea. His chest x-ray is consistent with that diagnosis. The patient continues on a factor X a inhibitor, making pulmonary embolism less likely. We will continue to follow make recommendations along the way. The patient is getting Lasix 80 mg IV every 12 hours. We did put a consult for general surgery, as the patient was to have a mastectomy in the near future. Additional recommendations and suggestions are forthcoming. Prognosis is guarded. Plan dated 07/18/2022. The patient's feeling much better today. He remains on 2 L. He is much less short of breath. Labs, x-rays, and medications are reviewed. The patient is considering hemodialysis. He is not sure whether or not he is going to have surgery on Thursday. Prognosis is certainly guarded. Labs, x-rays, and medications are reviewed. We will continue to follow. Plan dated 07/19/2022. The patient's doing well. He is on 2 L. Labs, x-rays, and medications are reviewed. Not sure whether or not the patient will have surgery on Thursday, July 21. Also, the patient has to make a decision about hemodialysis. I will continue to follow make recommendations along the way. Prognosis is guarded. Time with Patient: Less than 30
[2022-07-19] MEDS: INSULIN ASPART (NovoLOG) 100 UNIT/ML VIAL SQ SCH ×4 (10:46→20:23)
[2022-07-19] MEDS: AMIODARONE 100 MG TAB PO SCH (10:47)
[2022-07-19] MEDS: DIPHENOX-ATROP 2.5-0.025 MG 1 EACH TAB PO SCH (10:47)
[2022-07-19] MEDS: allopurinoL 100 MG TAB PO SCH (10:47)
[2022-07-19] MEDS: FERROUS SULFATE 325 MG TAB PO SCH (10:47)
[2022-07-19] MEDS: CHOLECALCIFEROL 25 MCG (1000 IU) TABLET PO SCH (10:47)
[2022-07-19] MEDS: APIXABAN 2.5 MG TABLET PO SCH (10:47)
[2022-07-19] MEDS: CHOLESTYRAMINE (WITH SUGAR) 4 GM PACKET PO SCH ×2 (10:47→20:25)
[2022-07-19] MEDS: amLODIPine 5 MG TAB PO SCH (10:47)
[2022-07-19] MEDS: FAMOTIDINE 20 MG TAB PO SCH (10:47)
[2022-07-19] MEDS: METOPROLOL SUCCINATE (ER) 25 MG TAB.ER.24H PO SCH (10:48)
[2022-07-19] MEDS: FUROSEMIDE 10 MG/ML 10 ML VIAL IV SCH ×2 (10:49→20:22)
[2022-07-19] MEDS: hydrALAZINE HCL 50 MG TAB PO SCH ×2 (10:49→20:24)
[2022-07-19] MEDS: TAMSULOSIN 0.4 MG CAP.ER.24H PO SCH ×2 (10:49→20:25)
[2022-07-19] MEDS: FOLIC ACID 1 MG TAB PO SCH (10:49)
--- NOTE | 2022-07-19 11:16 | P.PN ---
Subjective Progress Note Date: 07/19/22 Principal diagnosis: Right breast cancer Patient doing well today. Denies shortness of breath currently. Sats of been around high 90s. Appetite somewhat improved today. Objective - Vital Signs Vital signs: Vital Signs Temp 97.7 F 07/19/22 08:00 Pulse 61 07/19/22 08:00 Resp 16 07/19/22 08:00 BP 133/67 07/19/22 08:00 Pulse Ox 99 07/19/22 08:00 FiO2 Intake & Output 07/18/22 07/19/22 07/19/22 18:59 06:59 18:59 Intake Total 240 Output Total 600 240 Balance -600 0 Weight 101 kg Intake: Oral 240 Output: Urine 600 240 Other: Voiding Method Urinal Urinal Urinal - Exam Right chest wall mass present but smaller than previous Abdomen: Soft, nontender, nondistended - Labs CBC & Chem 7: 07/16/22 17:32 07/18/22 07:46 Labs: Abnormal Lab Results - Last 24 Hours (Table) 07/18/22 07/18/22 07/18/22 Range/Units 11:53 16:25 21:39 POC Glucose (mg/dL) 121 H 128 H 127 H (70-110) mg/dL Assessment and Plan (1) Cancer of right male breast Narrative/Plan: Patient is doing better clinically. Options reviewed. Discussed case with pulmonary. Tentatively plan is to proceed with surgery on Thursday for now. We'll hold eloquis Current Visit: No Status: Acute Priority: Medium Code(s): C50.921 - MALIGNANT NEOPLASM OF UNSPECIFIED SITE OF RIGHT MALE BREAST SNOMED Code(s): 534427267
[2022-07-19 11:37] LABS: Glucose,Whole Blood 91 mg/dL (70-110)
[2022-07-19 11:56] LABS: Glucose,Whole Blood 127 mg/dL (70-110)
--- NOTE | 2022-07-19 13:27 | P.PN ---
Subjective Progress Note Date: 07/19/22 HISTORY OF PRESENT ILLNESS: this is a 72-year-old male with a previous medical history significant for hy pertension and hypertensive cardiovascular disease with left ventricular hypertrophy, hyperlipidemia, diabetes mellitus type 2, with diabetic polyneuropathy, history of coronary artery disease status post coronary artery bypass graft x3 followed by stent, history of atrial fibrillation status post a blation on long-term eliquis, history of meningioma status post resection back in April 2013 with left-sided weakness, history of chronic kidney disease stage IV currently under the care of nephrology with plan for CAPD at later date, history of anemia of chronic kidney disease, history of secondary hyperparathyroidism. Patient also has history of newly diagnosed breast cancer on the right side status post biopsy which revealed invasive moderately differentiated ductal carcinoma status post chemotherapy with plan for radiation therapy following and then surgical intervention. Patient had a recent hospitalization in May for acute diastolic heart failure with right-sided pleural effusion and diarrhea secondary to chemotherapy. He was seen by cardiology oncology and nephrology. Echocardiogram at that time revealed EF of 55%, aortic sclerosis with mild to moderate aortic stenosis. Patient was discharged to home with plan for outpatient follow-up. A chest x-ray done as an outpatient on July 03 revealed stable small to moderate size right pleural effusion with cardiomegaly. Patient had an appointment with Dr. Valdes yesterday thought to have significant shortness of breath and was instructed to come in to the hospital for further evaluation. Patient has had continued shortness of breath and worse over the past few days with cough, exertional dyspnea. Patient came into [facility] emergency center for evaluation. He was found to be afebrile, heart rate 80, blood pressure 114/62, pulse ox 97% on room air. WBC 3.3, hemoglobin 7, platelet count 310. INR 1.1. Sodium 141, potassium 3.5, chloride 108, CO2 20, BUN 38 creatinine 3.2. Glucose 216. Liver function tests normal. Troponin negative on 3 draws. Albumin 3.5. ProBNP 1120. Chest x-ray reveals pulmonary vascular congestion and bilateral pleural effusions. Correlate with BNP for congestive heart failure. VQ scan was intermediate probability for pulmonary embolism. Patient was admitted to the cardiac stepdown unit and cardiology consult and nephrology consult ordered. Will add in consult for oncology, patient's oncologist is Dr. Cameron. He has been started on Lasix 40 mg IV push every 8 hours. 07/18: Patient states that his breathing is better today. He still has a cough with clear sputum production. Patient is unable to lay flat without difficulty breathing. He states he only slept 3-4 hours last night. He ate his oatmeal this morning other who does not look appetizing. Patient has been seen and followed by cardiology, pulmonary medicine and general surgery. Pulmonary medicine has reviewed VQ scan feel this is low probability for pulmonary embolism. Patient discussed that he would like to postpone surgery which is scheduled for Thursday. He has been afebrile, heart rate 62, blood pressure 168/77, pulse ox 90% on 2 L nasal cannula. desk monitor is atrial fibrillation with controlled rate. Repeat lab work reveals electrolytes normal, BUN 49 creatinine 4.78. Blood sugar 124. Blood blood glucose running between 121 and 228. Patient remains on Lasix 80 mg every 12 hours. Weights appear to be an accurate. Plan to monitor patient another 24-48 hours and discharged home. Doubt the patient will require home oxygen therapy but will need to be assessed prior to discharge. 07/18: Patient sitting up in bed in distress, denies any chest pain, shortness b reath, he is not requiring any oxygen, he continues to make urine, Dr. Valdes decided to take him to the OR on Thursday, I spoke with the patient about the risks and benefits and he is in agreement for the surgery at this point in time, this is probably the best that he is going to look patient is a high risk but he is medically optimized for surgical intervention. He complains of constipation discontinue Lomotil continue Colace, follow-up for the patient REVIEW OF SYSTEMS: Constitutional: No documented fever, no chills, no night sweats. No weight change. positive for weakness, fatigue or lethargy. No daytime sleepiness. HEENT: No headache. No blurred vision or double vision, no loss of vision. No loss of Hearing, no ringing in the ears, no dizziness. No nasal drainage or congestion. No epistaxis. No sore throat. Lungs: positive for shortness of breath-improving, no cough, no sputum production. No wheezing. Reports dyspnea with activity. Cardiovascular: No chest pain, reported lower extremity edema. No palpitations. Reported paroxysmal nocturnal dyspnea. Reports orthopnea. No lightheadedness or dizziness. No syncopal episodes. Abdominal: Reports no abdominal pain. No nausea, vomiting. Reports diarrhea. No constipation. No bloody or tarry stools reports loss of appetite. Genitourinary: No dysuria, increased frequency, urgency. No urinary retention. Musculoskeletal: No myalgias. positive for chronic left sided weakness, positive for gait dysfunction, no frequent falls. positive for back pain. positive for neck pain. Integumentary: No wounds, no lesions. No rash or pruritus. No unusual bruising. No change in hair or nails. Neurologic: No aphasia. No facial droop. No change in mentation. No head injury. No headache, positive for left sided weakness and left foot drop. Psychiatric: positive for depression. No anxiety. No mood swings. Endocrine: No abnormal blood sugars. No weight change. PHYSICAL EXAMINATION: General: this is a 72-year-old male who is sitting up in bed appears to be in no respiratory distress at rest. HEENT: Head is atraumatic, normocephalic, pupils were equal round reactive to light and recommendation, extraocular muscle movement were intact, sclera nonicteric, conjunctivae were pale, mucous membranes of the mouth are somewhat dry. Neck: Supple, no JVP, normal carotid upstroke bilaterally, no lymphadenopathy. Chest: Decreased breath sounds at the bases, few rhonchi, no expiratory wheezes, no chest wall tenderness, no intercostal retractions. Heart: First heart sound is normal, second heart sounds normal, irregularly irregular, there is systolic ejection murmur 2/6 located in the left sternal border. Abdomen: Soft, nontender, nondistended, positive bowel sounds. Extremities: There is trace edema to the bilateral lower extremities left greater than right no calf tenderness DP +2 bilaterally. Neurologic examination: Patient is awake alert and oriented X3 , cranial nerves II-12 appear grossly intact, there is left-sided weakness with left foot drop. ASSESSMENT AND PLAN: 1. Acute diastolic heart failure with right pleural effusion. Continue patient on metoprolol XL 25 mg orally once every day, continue patient on Lasix 80 mg IV push every 12 hours, monitor input and output and daily weight, continue patient also on hydralazine 75 mg orally twice every day, cardiology consultation appreciated. Cardiology and pulmonary medicine consult appreciated. 2. Right-sided breast cancer status post chemotherapy. Consult with Dr. Boutt appreciated. Scheduled for right mastectomy on Thursday. 3. Right pleural effusion with atelectasis. 4. Bicytopenia secondary to cancer. Continue to monitor. 6. History of CAD post CABG as well as PCI and stent placement. Continue patient on metoprolol XL 25 mg once every day, pravastatin 40 mg at bedtime. 7. History of paroxysmal atrial fibrillation. Continue patient on Eliquis 5 mg orally twice every day, continue amiodarone 100 mg orally once every day, metoprolol XL 25 mg orally once every day. 8. Hypertension and hypertensive cardiovascular disease. Continue patient on amlodipine 5 mg once every day, continue with metoprolol ER 25 mg orally once every day, monitor the patient blood pressure very closely. 9. Hyperlipidemia. Continue patient on pravastatin 40 mg at bedtime, monitor lipid panel, keep LDL 55-70. 10. Chronic kidney disease stage IV. Avoid nephrotoxic agents, consult nephrology. 11. History of enlarged prostate. Continue Flomax 0.4 mg once every day, monitor for urinary retention. 12. Diabetes mellitus type 2. Continue Lantus 30 units at bedtime, monitor the patient blood glucose level and at bedtime with NovoLog scale 13. Diabetic polyneuropathy. Stable. 14. History of DVT status post IVC filter placement, continue with Eliquis 5 mg orally twice every day. 15. Chronic gout. Continue patient on allopurinol 100 mg orally once every day. 16. History of meningioma with left-sided weakness. Physical therapy evaluation. Patient is a full code. Objective - Vital Signs Vital signs: Vital Signs Temp 97.7 F 07/19/22 08:00 Pulse 64 07/19/22 12:00 Resp 16 07/19/22 08:00 BP 121/64 07/19/22 12:00 Pulse Ox 91 L 07/19/22 12:00 FiO2 Intake & Output 07/18/22 07/19/22 07/19/22 18:59 06:59 18:59 Intake Total 240 Output Total 600 490 Balance -600 -250 Weight 101 kg Intake: Oral 240 Output: Urine 600 490 Other: Voiding Method Urinal Urinal Urinal - Labs CBC & Chem 7: 07/16/22 17:32 07/18/22 07:46 Labs: Abnormal Lab Results - Last 24 Hours (Table) 07/18/22 07/18/22 07/19/22 Range/Units 16:25 21:39 11:55 POC Glucose (mg/dL) 128 H 127 H 127 H (70-110) mg/dL
--- NOTE | 2022-07-19 16:30 | P.PN ---
Subjective Progress Note Date: 07/19/22 Follow-up for chronic kidney disease. Family at bedside. Going for surgery on Thursday. Denies any nausea vomiting or diarrhea. Urine output 600 ML's in the last 24 hours. Objective - Vital Signs Vital signs: Vital Signs Temp 97.7 F 07/19/22 08:00 Pulse 64 07/19/22 12:00 Resp 16 07/19/22 08:00 BP 121/64 07/19/22 12:00 Pulse Ox 91 L 07/19/22 12:00 FiO2 Intake & Output 07/18/22 07/19/22 07/19/22 18:59 06:59 18:59 Intake Total 240 Output Total 600 490 Balance -600 -250 Weight 101 kg Intake: Oral 240 Output: Urine 600 490 Other: Voiding Method Urinal Urinal Urinal - Exam No acute distress S1-S2 heard Lungs clear No edema - Labs CBC & Chem 7: 07/16/22 17:32 07/18/22 07:46 Labs: Abnormal Lab Results - Last 24 Hours (Table) 07/18/22 07/18/22 07/19/22 Range/Units 16:25 21:39 11:55 POC Glucose (mg/dL) 128 H 127 H 127 H (70-110) mg/dL Assessment and Plan Assessment: #1 acute kidney injury/progressive chronic kidney disease suspected CRS. #2 CK D stage V secondary to nephrosclerosis with a baseline creatinine of 4.0 MG per DL. #3 volume overload, currently better. #4 diastolic CHF #5 breast cancer status post chemotherapy, awaiting surgery on Thursday. Plan: #1 currently on Lasix, continue current dose. No new labs today. #2 check labs in the morning. #3 patient's agreeable for dialysis based on the labs, plan hemodialysis pre-or post surgery.
[2022-07-19 16:48] LABS: Glucose,Whole Blood 140 mg/dL (70-110)
[2022-07-19 19:48] LABS: Glucose,Whole Blood 165 mg/dL (70-110)
[2022-07-19] MEDS: ACETAMINOPHEN TAB 325 MG TAB PO PRN (20:23)
[2022-07-19] MEDS: INSULIN DETEMIR (LEVEMIR) 100 UNIT/ML SYR SQ SCH (20:23)
[2022-07-19] MEDS: PRAVASTATIN SODIUM 40 MG TAB PO SCH (20:25)
[2022-07-20 06:19] LABS: Glucose,Whole Blood 120 mg/dL (70-110)
[2022-07-20] MEDS: INSULIN ASPART (NovoLOG) 100 UNIT/ML VIAL SQ SCH ×4 (06:29→21:11)
--- NOTE | 2022-07-20 09:41 | P.PN ---
Subjective Progress Note Date: 07/20/22 Principal diagnosis: Right breast cancer Patient doing well this morning. Denies shortness of breath currently. States he has decided to go ahead with dialysis but still doesn't know when he would like to begin that. Objective - Vital Signs Vital signs: Vital Signs Temp 98.1 F 07/20/22 04:00 Pulse 60 07/20/22 04:00 Resp 19 07/20/22 04:00 BP 131/80 07/20/22 04:00 Pulse Ox 98 07/20/22 04:00 FiO2 Intake & Output 07/19/22 07/20/22 07/20/22 19:59 06:59 18:59 Intake Total 358 Output Total Balance 358 Intake: Oral 358 Output: Urine Other: Voiding Method # Voids - Exam Right chest wall mass present but smaller than previous Abdomen: Soft, nontender, nondistended - Labs CBC & Chem 7: 07/16/22 17:32 07/18/22 07:46 Labs: Abnormal Lab Results - Last 24 Hours (Table) 07/19/22 07/19/22 07/19/22 Range/Units 11:55 16:46 19:47 POC Glucose (mg/dL) 127 H 140 H 165 H (70-110) mg/dL 07/20/22 Range/Units 06:18 POC Glucose (mg/dL) 120 H (70-110) mg/dL Assessment and Plan (1) Cancer of right male breast Narrative/Plan: Case discussed with Dr. Sumner and Dr. Jon as well as the patient. Patient felt to be in as good of a condition from a pulmonary standpoint as can be at this point. He is agreeable to proceed. He has been cleared by pulmonary medicine. We'll proceed with right simple mastectomy with sentinel lymph node biopsy/injection with wire localization right axillary node. Current Visit: No Status: Acute Priority: Medium Code(s): C50.921 - MALIGNANT NEOPLASM OF UNSPECIFIED SITE OF RIGHT MALE BREAST SNOMED Code(s): 022906177
[2022-07-20] MEDS: METOPROLOL SUCCINATE (ER) 25 MG TAB.ER.24H PO SCH (09:55)
[2022-07-20] MEDS: FOLIC ACID 1 MG TAB PO SCH (09:55)
[2022-07-20] MEDS: FAMOTIDINE 20 MG TAB PO SCH (09:55)
[2022-07-20] MEDS: AMIODARONE 100 MG TAB PO SCH (09:55)
[2022-07-20] MEDS: hydrALAZINE HCL 50 MG TAB PO SCH ×2 (09:55→21:10)
[2022-07-20] MEDS: TAMSULOSIN 0.4 MG CAP.ER.24H PO SCH ×2 (09:56→21:10)
[2022-07-20] MEDS: allopurinoL 100 MG TAB PO SCH (09:56)
[2022-07-20] MEDS: CHOLESTYRAMINE (WITH SUGAR) 4 GM PACKET PO SCH ×2 (09:56→21:10)
[2022-07-20] MEDS: FERROUS SULFATE 325 MG TAB PO SCH (09:56)
[2022-07-20] MEDS: CHOLECALCIFEROL 25 MCG (1000 IU) TABLET PO SCH (09:56)
[2022-07-20] MEDS: FUROSEMIDE 10 MG/ML 10 ML VIAL IV SCH (09:56)
[2022-07-20] MEDS: amLODIPine 5 MG TAB PO SCH (09:56)
--- NOTE | 2022-07-20 09:59 | PN ---
PROGRESS NOTE SUBJECTIVE: Mr. Guzman is a 72-year-old male with a history of atrial fibrillation, chronic kidney disease, breast cancer, who presented with progressive dyspnea. He is status post coronary artery bypass grafting in 2004. He is doing well this morning. He denies any chest pain. His peripheral edema is better. He continues to be coughing, but no phlegm. He denies any dizziness or palpitation. He denies any syncope. He continues to be in sinus mechanism. MEDICATIONS: He continues to be at this time on: 1. Amiodarone 100 mg daily. 2. Amlodipine 5 mg daily. 3. Eliquis 2.5 mg twice a day. 4. Lasix 80 mg q.12 hours IV. 5. Hydralazine 75 mg twice a day. 6. Metoprolol succinate 25 mg daily. 7. Pravastatin 40 mg daily. 8. Flomax 0.4 mg twice a day. PHYSICAL EXAMINATION: VITAL SIGNS: Blood pressure 110/50 with a heart rate of 60. LUNGS: Clear. HEART: Regular S1, S2. No S3. No rub. There is a systolic ejection murmur. No diastolic murmur. ABDOMEN: Soft, nontender. EXTREMITIES: trace edema. LABORATORY DATA: Pending. IMPRESSION: 1. Symptoms of congestive heart failure with preserved systolic function, improving. 2. Status post coronary artery bypass grafting, stable. 3. Paroxysmal atrial fibrillation. 4. Stage 4 chronic kidney disease. 5. Hypertension. 6. Hyperlipidemia. 7. Diabetes mellitus. 8. History of breast cancer. RECOMMENDATIONS: I have recommended to continue present therapy. His diuretics have been addressed by the [facility]ph[facility]. Depending on his progress, further recommendations will be made. He has been evaluated for possible dialysis. MMODL / IJN: [id number] / MTDD
--- NOTE | 2022-07-20 10:44 | P.PN ---
Subjective Progress Note Date: 07/20/22 HISTORY OF PRESENT ILLNESS: this is a 72-year-old male with a previous medical history significant for hy pertension and hypertensive cardiovascular disease with left ventricular hypertrophy, hyperlipidemia, diabetes mellitus type 2, with diabetic polyneuropathy, history of coronary artery disease status post coronary artery bypass graft x3 followed by stent, history of atrial fibrillation status post a blation on long-term eliquis, history of meningioma status post resection back in April 2013 with left-sided weakness, history of chronic kidney disease stage IV currently under the care of nephrology with plan for CAPD at later date, history of anemia of chronic kidney disease, history of secondary hyperparathyroidism. Patient also has history of newly diagnosed breast cancer on the right side status post biopsy which revealed invasive moderately differentiated ductal carcinoma status post chemotherapy with plan for radiation therapy following and then surgical intervention. Patient had a recent hospitalization in May for acute diastolic heart failure with right-sided pleural effusion and diarrhea secondary to chemotherapy. He was seen by cardiology oncology and nephrology. Echocardiogram at that time revealed EF of 55%, aortic sclerosis with mild to moderate aortic stenosis. Patient was discharged to home with plan for outpatient follow-up. A chest x-ray done as an outpatient on July 03 revealed stable small to moderate size right pleural effusion with cardiomegaly. Patient had an appointment with Dr. Valdes yesterday thought to have significant shortness of breath and was instructed to come in to the hospital for further evaluation. Patient has had continued shortness of breath and worse over the past few days with cough, exertional dyspnea. Patient came into [facility] emergency center for evaluation. He was found to be afebrile, heart rate 80, blood pressure 114/62, pulse ox 97% on room air. WBC 3.3, hemoglobin 7, platelet count 310. INR 1.1. Sodium 141, potassium 3.5, chloride 108, CO2 20, BUN 38 creatinine 3.2. Glucose 216. Liver function tests normal. Troponin negative on 3 draws. Albumin 3.5. ProBNP 1120. Chest x-ray reveals pulmonary vascular congestion and bilateral pleural effusions. Correlate with BNP for congestive heart failure. VQ scan was intermediate probability for pulmonary embolism. Patient was admitted to the cardiac stepdown unit and cardiology consult and nephrology consult ordered. Will add in consult for oncology, patient's oncologist is Dr. Cameron. He has been started on Lasix 40 mg IV push every 8 hours. 07/18: Patient states that his breathing is better today. He still has a cough with clear sputum production. Patient is unable to lay flat without difficulty breathing. He states he only slept 3-4 hours last night. He ate his oatmeal this morning other who does not look appetizing. Patient has been seen and followed by cardiology, pulmonary medicine and general surgery. Pulmonary medicine has reviewed VQ scan feel this is low probability for pulmonary embolism. Patient discussed that he would like to postpone surgery which is scheduled for Thursday. He has been afebrile, heart rate 62, blood pressure 168/77, pulse ox 90% on 2 L nasal cannula. 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 Repeat lab work reveals electrolytes normal, BUN 49 creatinine 4.78. Blood sugar 124. Blood blood glucose running between 121 and 228. Patient remains on Lasix 80 mg every 12 hours. Weights appear to be an accurate. Plan to monitor patient another 24-48 hours and discharged home. Doubt the patient will require home oxygen therapy but will need to be assessed prior to discharge. 07/19: Patient sitting up in bed in distress, denies any chest pain, shortness b reath, he is not requiring any oxygen, he continues to make urine, Dr. Valdes decided to take him to the OR on Thursday, I spoke with the patient about the risks and benefits and he is in agreement for the surgery at this point in time, this is probably the best that he is going to look patient is a high risk but he is medically optimized for surgical intervention. He complains of constipation discontinue Lomotil continue Colace, follow-up for the patient 07/20: Patient is laying down in bed in no apparent distress, he continues to have some dry cough when he is laying flat, he was seen earlier by pulmonary medicine and general surgery is scheduled to go for surgical intervention with right mastectomy tomorrow morning with Dr. ayala at around 10:00 in the morning, patient is aware of the risks and benefits, and he is willing to proceed. REVIEW OF SYSTEMS: Constitutional: No documented fever, no chills, no night sweats. No weight change. positive for weakness, fatigue or lethargy. No daytime sleepiness. HEENT: No headache. No blurred vision or double vision, no loss of vision. No loss of Hearing, no ringing in the ears, no dizziness. No nasal drainage or congestion. No epistaxis. No sore throat. Lungs: positive for shortness of breath-improving, no cough, no sputum product ion. No wheezing. Reports dyspnea with activity. Cardiovascular: No chest pain, reported lower extremity edema. No palpitations. Reported paroxysmal nocturnal dyspnea. Reports orthopnea. No lightheadedness or dizziness. No syncopal episodes. Abdominal: Reports no abdominal pain. No nausea, vomiting. Reports diarrhea. No constipation. No bloody or tarry stools reports loss of appetite. Genitourinary: No dysuria, increased frequency, urgency. No urinary retention. Musculoskeletal: No myalgias. positive for chronic left sided weakness, positive for gait dysfunction, no frequent falls. positive for back pain. positive for neck pain. Integumentary: No wounds, no lesions. No rash or pruritus. No unusual bruising. No change in hair or nails. Neurologic: No aphasia. No facial droop. No change in mentation. No head injury. No headache, positive for left sided weakness and left foot drop. Psychiatric: positive for depression. No anxiety. No mood swings. Endocrine: No abnormal blood sugars. No weight change. PHYSICAL EXAMINATION: General: this is a 72-year-old male who is sitting up in bed appears to be in no respiratory distress at rest. HEENT: Head is atraumatic, normocephalic, pupils were equal round reactive to light and recommendation, extraocular muscle movement were intact, sclera nonicteric, conjunctivae were pale, mucous membranes of the mouth are somewhat dry. Neck: Supple, no JVP, normal carotid upstroke bilaterally, no lymphadenopathy. Chest: Decreased breath sounds at the bases, few rhonchi, no expiratory wheezes, no chest wall tenderness, no intercostal retractions. Heart: First heart sound is normal, second heart sounds normal, irregularly irr egular, there is systolic ejection murmur 2/6 located in the left sternal border. Abdomen: Soft, nontender, nondistended, positive bowel sounds. Extremities: There is trace edema to the bilateral lower extremities left greater than right no calf tenderness DP +2 bilaterally. Neurologic examination: Patient is awake alert and oriented X3 , cranial nerves II-12 appear grossly intact, there is left-sided weakness with left foot drop. ASSESSMENT AND PLAN: 1. Acute diastolic heart failure with right pleural effusion. Continue patient on metoprolol XL 25 mg orally once every day, continue patient on Lasix 80 mg IV push every 12 hours, monitor input and output and daily weight, continue patient also on hydralazine 75 mg orally twice every day, cardiology consultation appreciated. Cardiology and pulmonary medicine consult appreciated. 2. Right-sided breast cancer status post chemotherapy. Consult with Dr. Valdes appreciated. Scheduled for right mastectomy on Thursday. 3. Right pleural effusion with atelectasis. 4. Bicytopenia secondary to cancer. Continue to monitor. 6. History of CAD post CABG as well as PCI and stent placement. Continue patient on metoprolol XL 25 mg once every day, pravastatin 40 mg at bedtime. 7. History of paroxysmal atrial fibrillation. Continue patient to hold Eliquis for surgical intervention, continue amiodarone 100 mg orally once every day, metoprolol XL 25 mg orally once every day. 8. Hypertension and hypertensive cardiovascular disease. Continue patient on amlodipine 5 mg once every day, continue with metoprolol ER 25 mg orally once every day, monitor the patient blood pressure very closely. 9. Hyperlipidemia. Continue patient on pravastatin 40 mg at bedtime, monitor lipid panel, keep LDL 55-70. 10. Chronic kidney disease stage IV. Avoid nephrotoxic agents, consult nephrology. 11. History of enlarged prostate. Continue Flomax 0.4 mg once every day, monitor for urinary retention. 12. Diabetes mellitus type 2. Continue Lantus 30 units at bedtime, monitor the patient blood glucose level and at bedtime with NovoLog scale 13. Diabetic polyneuropathy. Stable. 14. History of DVT status post IVC filter placement, continue to hold liquids for now. 15. Chronic gout. Continue patient on allopurinol 100 mg orally once every day. 16. History of meningioma with left-sided weakness. Physical therapy eval uation. 17. Patient is being bored for surgical intervention with right mastectomy tomorrow morning with Dr. ayala. Objective - Vital Signs Vital signs: Vital Signs Temp 98.1 F 07/20/22 04:00 Pulse 60 07/20/22 04:00 Resp 19 07/20/22 04:00 BP 131/80 07/20/22 04:00 Pulse Ox 98 07/20/22 04:00 FiO2 Intake & Output 07/19/22 07/20/22 07/20/22 19:59 06:59 18:59 Intake Total 358 Output Total Balance 358 Intake: Oral 358 Output: Urine Other: Voiding Method # Voids - Labs CBC & Chem 7: 07/16/22 17:32 07/18/22 07:46 Labs: Abnormal Lab Results - Last 24 Hours (Table) 07/19/22 07/19/22 07/19/22 Range/Units 11:55 16:46 19:47 POC Glucose (mg/dL) 127 H 140 H 165 H (70-110) mg/dL 07/20/22 Range/Units 06:18 POC Glucose (mg/dL) 120 H (70-110) mg/dL
--- NOTE | 2022-07-20 11:02 | P.PN ---
Subjective Progress Note Date: 07/20/22 Principal diagnosis: Shortness of breath. Pulmonary consult dated 07/17/2022. 72-year-old male who presented to the emergency department on July 16, complaining of shortness of breath. He apparently been having shortness breath, which is been progressively worse over the course of many days and even a week or so. His breathing becomes much worse when he lays flat. He does have a dry nonproductive cough. No fever or chills. No chest pain. He was admitted back in May, for a similar episode. He has a history of right breast cancer, atrial fibrillation/flutter, CAD, diabetes mellitus, DVT, GERD, hyperlipidemia, hypertension, myocardial infarction, and sleep apnea. White count 3.7, hemoglobin 9.2, hematocrit 28.7, and platelet count 228,000. His d-dimer was 1.35. Sodium 141, potassium 3.8, chlorides 104, CO2 22, anion gap 15, BUN 51, creatinine 4.34. The patient's troponin was 0.034, 0.036, and 0.037. N- terminal proBNP was 1270. TSH was normal. Chest x-ray shows cardiomegaly, pulmonary vascular congestion, and bilateral pleural effusions. A perfusion lung scan was indeterminate. The patient was on a factor X a inhibitor anyway. Progress note dated 07/18/2022. 72-year-old male who I saw yesterday in consultation with shortness of breath. The patient was to have a right mastectomy, for breast cancer, on July 21. He has a history of atrial fibrillation, CAD, diabetes, DVT, GERD, hyperlipidemia, hypertension, myocardial infarction, and sleep apnea. Chest x- ray showed cardiomegaly, pulmonary vascular congestion, and bilateral pleural effusions. Sodium 140, potassium 3.7, chlorides 105, CO2 23, anion gap 12, BUN 49, creatinine 4.78. Progress note dated 07/19/2022. This is a 72-year-old male seen in room 361. He currently is on 3 L of oxygen. No IV fluids. The patient mentioned to me that he may need hemodialysis. Inyaniv humphries, he was going to have a right mastectomy done by the general surgeon, on July 21. That may be on hold. No new labs today as yet. No chest x-ray today. The patient states that his breathing is stable. He denies any shortness of breath, cough, wheezing, phlegm production, or chest pain. Progress note dated 07/20/2022. 72-year-old male again seen in room 361. He remains on oxygen at between 2-3 L. No IV fluids. The patient is possibly going to have a right mastectomy chery rrow. The patient is stable. I did talk to the surgeon about this patient. He's doing much better than when he first came in. No new laboratory data today. The patient's glucose was 120. Objective - Vital Signs Vital signs: Vital Signs Temp 98.1 F 07/20/22 04:00 Pulse 60 07/20/22 04:00 Resp 19 07/20/22 04:00 BP 131/80 07/20/22 04:00 Pulse Ox 98 07/20/22 04:00 FiO2 Intake & Output 07/19/22 07/20/22 07/20/22 19:59 06:59 18:59 Intake Total 358 Output Total Balance 358 Intake: Oral 358 Output: Urine Other: Voiding Method # Voids - Exam No acute distress, oriented 3. No significant respiratory difficulty, conversational dyspnea, or use of accessory muscles. The patient's on 2 L of oxygen. Saturations are 98%. HEENT examination is grossly unremarkable. Neck supple. Full range of motion. No adenopathy thyromegaly or neck vein distention. Cardiovascular examination reveals regular rhythm rate. S1-S2 normal. No S3 or S4. A soft systolic murmur is noted. Heart rate 60 bpm. Lungs reveal mostly clear breath sounds. Minimal scattered crackles. No wheezes. No rhonchi. The breath sounds are equal bilaterally. 2 L saturation is 98 %. Abdomen soft bowel sounds are heard. No masses or tenderness. Extremities are intact. No cyanosis or clubbing. Mild edema present. Skin is without rash or lesion. Neurologic examination is brief but nonfocal. - Labs CBC & Chem 7: 07/16/22 17:32 07/18/22 07:46 Labs: Abnormal Lab Results - Last 24 Hours (Table) 07/19/22 07/19/22 07/20/22 Range/Units 16:46 19:47 06:18 POC Glucose (mg/dL) 140 H 165 H 120 H (70-110) mg/dL Assessment and Plan Assessment: Shortness of breath, with acute hypoxemic respiratory failure, mild to moderate in severity, secondary to CHF, much improved. Doubt pulmonary embolism. History of right breast cancer, with anticipated mastectomy on 07/21/2022. History of atrial fibrillation/flutter. History of CAD and previous myocardial infarction. History of diabetes mellitus. History of DVT. History of gastroesophageal reflux disease. Hyperlipidemia. History of hypertension. Osteoarthritis. History of sleep apnea syndrome. Plan: Plan dated 07/17/2022. The patient's clinical picture really fits heart failure more than anything else. It has been progressive, with some mild lower extremity edema, and orth opnea. His chest x-ray is consistent with that diagnosis. The patient continues on a factor X a inhibitor, making pulmonary embolism less likely. We will continue to follow make recommendations along the way. The patient is getting Lasix 80 mg IV every 12 hours. We did put a consult for general surgery, as the patient was to have a mastectomy in the near future. Additional recommendations and suggestions are forthcoming. Prognosis is guarded. Plan dated 07/18/2022. The patient's feeling much better today. He remains on 2 L. He is much less short of breath. Labs, x-rays, and medications are reviewed. The patient is considering hemodialysis. He is not sure whether or not he is going to have surgery on Thursday. Prognosis is certainly guarded. Labs, x-rays, and medications are reviewed. We will continue to follow. Plan dated 07/19/2022. The patient's doing well. He is on 2 L. Labs, x-rays, and medications are reviewed. Not sure whether or not the patient will have surgery on Thursday, July 21. Also, the patient has to make a decision about hemodialysis. I will continue to follow make recommendations along the way. Prognosis is guarded. Plan dated 07/20/2022. Labs, x-rays, and medications are reviewed. The patient is on 2 L. Saturations are 98%. Clinically he is very stable. He is able speak in full sentences. He is able to lay flat in bed. The patient may end up having a right mastectomy tomorrow with Dr. Valdes.. I did discuss the case with the surgeon. I think the patient is stable from my perspective. Time with Patient: Less than 30
--- NOTE | 2022-07-20 11:28 | P.PN ---
Subjective Progress Note Date: 07/20/22 The patient is a 72-year-old male with history of hypertension, breast cancer who presented symptoms of progressive dyspnea. He's feeling better today. He scheduled to undergo mastectomy tomorrow. He denies any nausea or vomiting. His cough is better. He is supine without any symptoms. His edema has improved. His medication include amiodarone 100 mg daily, amlodipine 5 mg daily, Lasix 80 mg IV every 12 hours, hydralazine 75 mg twice a day, insulin, metoprolol succinate 25 mg daily, pravastatin 40 mg daily. Physical examination: Blood pressure 131/80, heart rate in the 60 Lungs: Clear to auscultation Heart: Regular rate and rhythm plus systolic murmur nor rub Abdomen: Soft nontender positive bowel sounds Extremities: Trace edema Labs: Pending Impression: 1. Symptoms of progressive dyspnea with fluid overload, CHF was preserved systolic function and evidence of stage IV kidney disease 2. History of breast cancer scheduled for mastectomy tomorrow 3. Paroxysmal atrial fibrillation 4. Chronic kidney disease 5. History of hypertension 6. History of hyperlipidemia Plan: 1. Continue present therapy 2. Follow renal functions 3. Probable dialysis soon 4. Depending on his progress further recommendations will be made Objective - Vital Signs Vital signs: Vital Signs Temp 98.1 F 07/20/22 04:00 Pulse 60 07/20/22 04:00 Resp 19 07/20/22 04:00 BP 131/80 07/20/22 04:00 Pulse Ox 98 07/20/22 04:00 FiO2 Intake & Output 07/19/22 07/20/22 07/20/22 19:59 06:59 18:59 Intake Total 358 Output Total Balance 358 Intake: Oral 358 Output: Urine Other: Voiding Method # Voids - Labs CBC & Chem 7: 07/16/22 17:32 07/18/22 07:46 Labs: Abnormal Lab Results - Last 24 Hours (Table) 07/19/22 07/19/22 07/20/22 Range/Units 16:46 19:47 06:18 POC Glucose (mg/dL) 140 H 165 H 120 H (70-110) mg/dL
[2022-07-20 11:34] LABS: Glucose,Whole Blood 143 mg/dL (70-110)
[2022-07-20 11:55] LABS: Basophils % (A) 1 %; Eosinophils % (A) 1 %; HCT 27.5 % (39.0-53.0); HGB 8.5 gm/dL (13.0-17.5); Hypochromasia Marked; Lymphocytes # (A) 0.3 k/uL (1.0-4.8); Lymphocytes % (A) 6 %; MCH 30.5 pg (25.0-35.0); MCHC 30.9 g/dL (31.0-37.0); MCV 98.9 fL (80.0-100.0); Macrocytosis Slight; Mean Platelet Volume 8.3; Monocytes # (A) 0.3 k/uL (0-1.0); Monocytes % (A) 6 %; Neutrophils # (A) 4.6 k/uL (1.3-7.7); Neutrophils % (A) 85 %; Platelet Count 214 k/uL (150-450); Poikilocytosis Slight; RBC 2.78 m/uL (4.30-5.90); RDW 15.9 % (11.5-15.5); WBC 5.5 k/uL (3.8-10.6)
[2022-07-20 12:04] LABS: Albumin 3.7 g/dL (3.5-5.0); Calcium 9.7 mg/dL (8.4-10.2); Potassium 3.9 mmol/L (3.5-5.1); Total Bilirubin 0.3 mg/dL (0.2-1.3); Total Protein 5.5 g/dL (6.3-8.2)
--- NOTE | 2022-07-20 16:23 | P.PN ---
Subjective Progress Note Date: 07/20/22 Follow-up for chronic kidney disease. Family at bedside. Going for surgery on Thursday. Denies any nausea vomiting or diarrhea. Urine output 1390 ML's in the last 24 hours. Objective - Vital Signs Vital signs: Vital Signs Temp 98.2 F 07/20/22 08:00 Pulse 68 07/20/22 12:00 Resp 20 07/20/22 08:00 BP 156/66 07/20/22 12:00 Pulse Ox 97 07/20/22 12:00 FiO2 Intake & Output 07/19/22 07/20/22 07/20/22 19:59 06:59 18:59 Intake Total 476 Output Total 120 Balance 356 Intake: Oral 476 Output: Urine 120 Other: Voiding Method Urinal # Voids - Exam No acute distress S1-S2 heard Lungs clear No edema - Labs CBC & Chem 7: 07/20/22 11:00 07/20/22 11:00 Labs: Abnormal Lab Results - Last 24 Hours (Table) 07/19/22 07/20/22 07/20/22 Range/Units 19:47 06:18 11:00 RBC (4.30-5.90) m/uL Hgb (13.0-17.5) gm/dL Hct (39.0-53.0) % MCHC (31.0-37.0) g/dL RDW (11.5-15.5) % Lymphocytes # (1.0-4.8) k/uL BUN 53 H (9-20) mg/dL Creatinine 5.24 H (0.66-1.25) mg/dL Glucose 132 H (74-99) mg/dL POC Glucose (mg/dL) 165 H 120 H (70-110) mg/dL AST 12 L (17-59) U/L Total Protein 5.5 L (6.3-8.2) g/dL 07/20/22 07/20/22 Range/Units 11:00 11:32 RBC 2.78 L (4.30-5.90) m/uL Hgb 8.5 L (13.0-17.5) gm/dL Hct 27.5 L (39.0-53.0) % MCHC 30.9 L (31.0-37.0) g/dL RDW 15.9 H (11.5-15.5) % Lymphocytes # 0.3 L (1.0-4.8) k/uL BUN (9-20) mg/dL Creatinine (0.66-1.25) mg/dL Glucose (74-99) mg/dL POC Glucose (mg/dL) 143 H (70-110) mg/dL AST (17-59) U/L Total Protein (6.3-8.2) g/dL Assessment and Plan Assessment: #1 acute kidney injury/progressive chronic kidney disease suspected CRS. #2 CK D stage V secondary to nephrosclerosis with a baseline creatinine of 4.0 MG per DL. #3 volume overload, currently better. #4 diastolic CHF #5 breast cancer status post chemotherapy, awaiting surgery on Thursday. Plan: #1 currently on Lasix, hold Lasix, as volume is better and renal function worsening. #2 no uremic symptoms today. #3 patient's agreeable for dialysis based on the labs, plan hemodialysis post surgery.
[2022-07-20 16:35] LABS: Glucose,Whole Blood 173 mg/dL (70-110)
[2022-07-20 20:36] LABS: Glucose,Whole Blood 192 mg/dL (70-110)
[2022-07-20] MEDS: PRAVASTATIN SODIUM 40 MG TAB PO SCH (21:10)
[2022-07-20] MEDS: INSULIN DETEMIR (LEVEMIR) 100 UNIT/ML SYR SQ SCH (21:10)
[2022-07-21 06:04] LABS: Glucose,Whole Blood 143 mg/dL (70-110)
[2022-07-21] MEDS: INSULIN ASPART (NovoLOG) 100 UNIT/ML VIAL SQ SCH ×4 (07:14→21:54)
[2022-07-21 08:32] LABS: Basophils % (A) 0 %; Eosinophils % (A) 0 %; HCT 27.8 % (39.0-53.0); HGB 8.9 gm/dL (13.0-17.5); Hypochromasia Moderate; Lymphocytes # (A) 0.3 k/uL (1.0-4.8); Lymphocytes % (A) 5 %; MCH 31.2 pg (25.0-35.0); MCHC 31.8 g/dL (31.0-37.0); MCV 97.9 fL (80.0-100.0); Macrocytosis Slight; Mean Platelet Volume 8.4; Monocytes # (A) 0.3 k/uL (0-1.0); Monocytes % (A) 6 %; Neutrophils # (A) 4.7 k/uL (1.3-7.7); Neutrophils % (A) 86 %; Platelet Count 219 k/uL (150-450); Poikilocytosis Slight; RBC 2.84 m/uL (4.30-5.90); RDW 15.8 % (11.5-15.5); WBC 5.5 k/uL (3.8-10.6)
[2022-07-21] MEDS ORDERED: LACTATED RINGERS 1,000 ML IV ONE (08:49)
[2022-07-21 08:51] LABS: Albumin 3.8 g/dL (3.5-5.0); Calcium 9.9 mg/dL (8.4-10.2); Potassium 3.7 mmol/L (3.5-5.1); Total Bilirubin 0.3 mg/dL (0.2-1.3); Total Protein 5.7 g/dL (6.3-8.2)
[2022-07-21] MEDS: allopurinoL 100 MG TAB PO SCH (09:00)
[2022-07-21] MEDS: hydrALAZINE HCL 50 MG TAB PO SCH ×2 (09:00→21:53)
[2022-07-21] MEDS: FOLIC ACID 1 MG TAB PO SCH (09:00)
[2022-07-21] MEDS: CHOLECALCIFEROL 25 MCG (1000 IU) TABLET PO SCH (09:00)
[2022-07-21] MEDS: FAMOTIDINE 20 MG TAB PO SCH (09:00)
[2022-07-21] MEDS: AMIODARONE 100 MG TAB PO SCH (09:00)
[2022-07-21] MEDS: amLODIPine 5 MG TAB PO SCH (09:00)
[2022-07-21] MEDS: CHOLESTYRAMINE (WITH SUGAR) 4 GM PACKET PO SCH ×2 (09:00→21:52)
[2022-07-21] MEDS: FERROUS SULFATE 325 MG TAB PO SCH (09:00)
[2022-07-21] MEDS: TAMSULOSIN 0.4 MG CAP.ER.24H PO SCH ×2 (09:00→21:53)
[2022-07-21] MEDS ORDERED: SODIUM CHLORIDE 0.9% 1,000 ML IV ONE (09:04)
[2022-07-21] MEDS: METOPROLOL SUCCINATE (ER) 25 MG TAB.ER.24H PO SCH (09:13)
--- NOTE | 2022-07-21 09:15 | P.PN ---
Subjective Progress Note Date: 07/21/22 HISTORY OF PRESENT ILLNESS: this is a 72-year-old male with a previous medical history significant for hy pertension and hypertensive cardiovascular disease with left ventricular hypertrophy, hyperlipidemia, diabetes mellitus type 2, with diabetic polyneuropathy, history of coronary artery disease status post coronary artery bypass graft x3 followed by stent, history of atrial fibrillation status post a blation on long-term eliquis, history of meningioma status post resection back in April 2013 with left-sided weakness, history of chronic kidney disease stage IV currently under the care of nephrology with plan for CAPD at later date, history of anemia of chronic kidney disease, history of secondary hyperparathyroidism. Patient also has history of newly diagnosed breast cancer on the right side status post biopsy which revealed invasive moderately differentiated ductal carcinoma status post chemotherapy with plan for radiation therapy following and then surgical intervention. Patient had a recent hospitalization in May for acute diastolic heart failure with right-sided pleural effusion and diarrhea secondary to chemotherapy. He was seen by cardiology oncology and nephrology. Echocardiogram at that time revealed EF of 55%, aortic sclerosis with mild to moderate aortic stenosis. Patient was discharged to home with plan for outpatient follow-up. A chest x-ray done as an outpatient on July 03 revealed stable small to moderate size right pleural effusion with cardiomegaly. Patient had an appointment with Dr. Valdes yesterday thought to have significant shortness of breath and was instructed to come in to the hospital for further evaluation. Patient has had continued shortness of breath and worse over the past few days with cough, exertional dyspnea. Patient came into [facility] emergency center for evaluation. He was found to be afebrile, heart rate 80, blood pressure 114/62, pulse ox 97% on room air. WBC 3.3, hemoglobin 7, platelet count 310. INR 1.1. Sodium 141, potassium 3.5, chloride 108, CO2 20, BUN 38 creatinine 3.2. Glucose 216. Liver function tests normal. Troponin negative on 3 draws. Albumin 3.5. ProBNP 1120. Chest x-ray reveals pulmonary vascular congestion and bilateral pleural effusions. Correlate with BNP for congestive heart failure. VQ scan was intermediate probability for pulmonary embolism. Patient was admitted to the cardiac stepdown unit and cardiology consult and nephrology consult ordered. Will add in consult for oncology, patient's oncologist is Dr. Cameron. He has been started on Lasix 40 mg IV push every 8 hours. 07/18: Patient states that his breathing is better today. He still has a cough with clear sputum production. Patient is unable to lay flat without difficulty breathing. He states he only slept 3-4 hours last night. He ate his oatmeal this morning other who does not look appetizing. Patient has been seen and followed by cardiology, pulmonary medicine and general surgery. Pulmonary medicine has reviewed VQ scan feel this is low probability for pulmonary embolism. Patient discussed that he would like to postpone surgery which is scheduled for Thursday. He has been afebrile, heart rate 62, blood pressure 168/77, pulse ox 90% on 2 L nasal cannula. residential monitor is atrial fibrillation with controlled rate. Repeat lab work reveals electrolytes normal, BUN 49 creatinine 4.78. Blood sugar 124. Blood blood glucose running between 121 and 228. Patient remains on Lasix 80 mg every 12 hours. Weights appear to be an accurate. Plan to monitor patient another 24-48 hours and discharged home. Doubt the patient will require home oxygen therapy but will need to be assessed prior to discharge. 07/19: Patient sitting up in bed in distress, denies any chest pain, shortness b reath, he is not requiring any oxygen, he continues to make urine, Dr. Valdes decided to take him to the OR on Thursday, I spoke with the patient about the risks and benefits and he is in agreement for the surgery at this point in time, this is probably the best that he is going to look patient is a high risk but he is medically optimized for surgical intervention. He complains of constipation discontinue Lomotil continue Colace, follow-up for the patient 07/20: Patient is laying down in bed in no apparent distress, he continues to have some dry cough when he is laying flat, he was seen earlier by pulmonary medicine and general surgery is scheduled to go for surgical intervention with right mastectomy tomorrow morning with Dr. ayala at around 10:00 in the morning, patient is aware of the risks and benefits, and he is willing to proceed. 07/21: Patient denies any new concerns today. Patient's is at bedside. He is scheduled for his surgical procedures today and feels ready to proceed. He has been afebrile, heart rate 78, blood pressure 148/67, pulse ox 99% on 2 L nasal cannula. Repeat blood work reveals WBC 5.5, hemoglobin 8.9, platelet count 219. Electrolytes are normal. BUN 53 and creatinine 5.35. Labile glucose running between 143 and 192. REVIEW OF SYSTEMS: Constitutional: No documented fever, no chills, no night sweats. No weight change. positive for weakness, fatigue or lethargy. No daytime sleepiness. HEENT: No headache. No blurred vision or double vision, no loss of vision. No loss of Hearing, no ringing in the ears, no dizziness. No nasal drainage or congestion. No epistaxis. No sore throat. Lungs: positive for shortness of breath-improving, no cough, no sputum production. No wheezing. Reports dyspnea with activity. Cardiovascular: No chest pain, reported lower extremity edema. No palpitations. Reported paroxysmal nocturnal dyspnea. Reports orthopnea. No lightheadedness or dizziness. No syncopal episodes. Abdominal: Reports no abdominal pain. No nausea, vomiting. Reports diarrhea. No constipation. No bloody or tarry stools reports loss of appetite. Genitourinary: No dysuria, increased frequency, urgency. No urinary retention. Musculoskeletal: No myalgias. positive for chronic left sided weakness, positive for gait dysfunction, no frequent falls. positive for back pain. positive for neck pain. Integumentary: No wounds, no lesions. No rash or pruritus. No unusual bruising. No change in hair or nails. Neurologic: No aphasia. No facial droop. No change in mentation. No head injury. No headache, positive for left sided weakness and left foot drop. Psychiatric: positive for depression. No anxiety. No mood swings. Endocrine: No abnormal blood sugars. No weight change. PHYSICAL EXAMINATION: General: this is a 72-year-old male who is sitting up in bed appears to be in no respiratory distress at rest. Patient's is at bedside. HEENT: Head is atraumatic, normocephalic, pupils were equal round, sclera nonicteric, conjunctivae were pale, mucous membranes of the mouth are somewhat dry. Neck: Supple, no JVP, normal carotid upstroke bilaterally, no lymphadenopathy. Chest: Decreased breath sounds at the bases, few rhonchi, no expiratory wheezes, no chest wall tenderness, no intercostal retractions. Heart: First heart sound is normal, second heart sounds normal, irregularly irregular, there is systolic ejection murmur 2/6 located in the left sternal border. Abdomen: Soft, nontender, nondistended, positive bowel sounds. Extremities: There is trace edema to the bilateral lower extremities left grea ter than right no calf tenderness DP +2 bilaterally. Neurologic examination: Patient is awake alert and oriented X3 , cranial nerves II-12 appear grossly intact, there is left-sided weakness with left foot drop. ASSESSMENT AND PLAN: 1. Acute diastolic heart failure with right pleural effusion. Continue patient on metoprolol XL 25 mg orally once every day, Lasix is on hold, monitor input and output and daily weight, continue patient also on hydralazine 75 mg orally twice every day. Cardiology and pulmonary medicine consult appreciated. 2. Right-sided breast cancer status post chemotherapy. Consult with Dr. Valdes appreciated. Scheduled for sentinel node biopsy and right mastectomy today. 3. Right pleural effusion with atelectasis. 4. Bicytopenia secondary to cancer. Continue to monitor. 6. History of CAD post CABG as well as PCI and stent placement. Continue patient on metoprolol XL 25 mg once every day, pravastatin 40 mg at bedtime. 7. History of paroxysmal atrial fibrillation. Continue patient to hold Eliquis for surgical intervention, continue amiodarone 100 mg orally once every day, metoprolol XL 25 mg orally once every day. 8. Hypertension and hypertensive cardiovascular disease. Continue patient on amlodipine 5 mg once every day, continue with metoprolol ER 25 mg orally once every day, monitor the patient blood pressure very closely. 9. Hyperlipidemia. Continue patient on pravastatin 40 mg at bedtime, monitor lipid panel, keep LDL 55-70. 10. Chronic kidney disease stage IV. Avoid nephrotoxic agents, consult nephrology. 11. History of enlarged prostate. Continue Flomax 0.4 mg once every day, monitor for urinary retention. 12. Diabetes mellitus type 2. Continue Lantus 30 units at bedtime, monitor the patient blood glucose level and at bedtime with NovoLog scale 13. Diabetic polyneuropathy. Stable. 14. History of DVT status post IVC filter placement, continue to hold liquids for now. 15. Chronic gout. Continue patient on allopurinol 100 mg orally once every day. 16. History of meningioma with left-sided weakness. Physical therapy evaluation. 17. Patient is being bored for surgical intervention with right mastectomy tomorrow morning with Dr. Valdes. Impression and plan of care have been directed as dictated by the signing physician. Nita Linn nurse practitioner acting as scribe for signing physician. Objective - Vital Signs Vital signs: Vital Signs Temp 98.0 F 07/21/22 00:00 Pulse 87 07/21/22 00:00 Resp 22 07/21/22 00:00 BP 125/98 07/21/22 00:00 Pulse Ox 99 07/21/22 00:00 FiO2 Intake & Output 07/20/22 07/21/22 07/21/22 18:59 06:59 18:59 Intake Total 714 Output Total 120 345 Balance 594 -345 Weight 98.5 kg Intake: Oral 714 Output: Urine 120 345 Other: Voiding Method Urinal Urinal # Voids 1 # Bowel Movements 1 - Labs CBC & Chem 7: 07/21/22 08:01 07/21/22 08:01 Labs: Abnormal Lab Results - Last 24 Hours (Table) 07/20/22 07/20/22 07/20/22 Range/Units 11:00 11:00 11:32 RBC 2.78 L (4.30-5.90) m/uL Hgb 8.5 L (13.0-17.5) gm/dL Hct 27.5 L (39.0-53.0) % MCHC 30.9 L (31.0-37.0) g/dL RDW 15.9 H (11.5-15.5) % Lymphocytes # 0.3 L (1.0-4.8) k/uL BUN 53 H (9-20) mg/dL Creatinine 5.24 H (0.66-1.25) mg/dL Glucose 132 H (74-99) mg/dL POC Glucose (mg/dL) 143 H (70-110) mg/dL AST 12 L (17-59) U/L Total Protein 5.5 L (6.3-8.2) g/dL 07/20/22 07/20/22 07/21/22 Range/Units 16:33 20:32 06:02 RBC (4.30-5.90) m/uL Hgb (13.0-17.5) gm/dL Hct (39.0-53.0) % MCHC (31.0-37.0) g/dL RDW (11.5-15.5) % Lymphocytes # (1.0-4.8) k/uL BUN (9-20) mg/dL Creatinine (0.66-1.25) mg/dL Glucose (74-99) mg/dL POC Glucose (mg/dL) 173 H 192 H 143 H (70-110) mg/dL AST (17-59) U/L Total Protein (6.3-8.2) g/dL
[2022-07-21] MEDS ORDERED: LIDOCAINE 1% INJ 10MG/ML (30 ML VIAL-PF) SQ ONE (09:31)
--- NOTE | 2022-07-21 09:33 | P.PN ---
Subjective Patient is seen in follow-up for chronic kidney disease. Renal function stable. Admits to good urine output. No chest pain or shortness of breath. Oral intake has been fair. Scheduled for breast surgery today. Vital signs are stable. General: Awake. No acute distress. HEENT: Head exam is unremarkable. LUNGS: Breath sounds decreased. HEART: Rate and Rhythm are regular. ABDOMEN: Soft, obese. EXTREMITITES: Trace edema. Objective - Vital Signs Vital signs: Vital Signs Temp 98.3 F 07/21/22 06:00 Pulse 78 07/21/22 08:51 Resp 16 07/21/22 08:51 BP 148/67 07/21/22 08:51 Pulse Ox 99 07/21/22 08:51 FiO2 Intake & Output 07/20/22 07/21/22 07/21/22 18:59 06:59 18:59 Intake Total 714 Output Total 120 345 Balance 594 -345 Weight 98.5 kg Intake: Oral 714 Output: Urine 120 345 Other: Voiding Method Urinal Urinal # Voids 1 # Bowel Movements 1 - Labs CBC & Chem 7: 07/21/22 08:01 07/21/22 08:01 Labs: Abnormal Lab Results - Last 24 Hours (Table) 07/20/22 07/20/22 07/20/22 Range/Units 11:00 11:00 11:32 RBC 2.78 L (4.30-5.90) m/uL Hgb 8.5 L (13.0-17.5) gm/dL Hct 27.5 L (39.0-53.0) % MCHC 30.9 L (31.0-37.0) g/dL RDW 15.9 H (11.5-15.5) % Lymphocytes # 0.3 L (1.0-4.8) k/uL BUN 53 H (9-20) mg/dL Creatinine 5.24 H (0.66-1.25) mg/dL Glucose 132 H (74-99) mg/dL POC Glucose (mg/dL) 143 H (70-110) mg/dL AST 12 L (17-59) U/L Total Protein 5.5 L (6.3-8.2) g/dL 07/20/22 07/20/22 07/21/22 Range/Units 16:33 20:32 06:02 RBC (4.30-5.90) m/uL Hgb (13.0-17.5) gm/dL Hct (39.0-53.0) % MCHC (31.0-37.0) g/dL RDW (11.5-15.5) % Lymphocytes # (1.0-4.8) k/uL BUN (9-20) mg/dL Creatinine (0.66-1.25) mg/dL Glucose (74-99) mg/dL POC Glucose (mg/dL) 173 H 192 H 143 H (70-110) mg/dL AST (17-59) U/L Total Protein (6.3-8.2) g/dL 07/21/22 07/21/22 Range/Units 08:01 08:01 RBC 2.84 L (4.30-5.90) m/uL Hgb 8.9 L (13.0-17.5) gm/dL Hct 27.8 L (39.0-53.0) % MCHC (31.0-37.0) g/dL RDW 15.8 H (11.5-15.5) % Lymphocytes # 0.3 L (1.0-4.8) k/uL BUN 53 H (9-20) mg/dL Creatinine 5.35 H (0.66-1.25) mg/dL Glucose 122 H (74-99) mg/dL POC Glucose (mg/dL) (70-110) mg/dL AST 11 L (17-59) U/L Total Protein 5.7 L (6.3-8.2) g/dL Assessment and Plan Plan: Assessment: 1. Acute kidney injury secondary to ATN secondary to cardiorenal syndrome versus progression of underlying chronic kidney disease. Renal function stable. Creatinine 5.35 today. 2. Chronic kidney disease stage V secondary to nephrosclerosis with baseline creatinine near 4. 3. Volume overload. Maintained on IV Lasix. 4. Breast cancer. Scheduled for surgery today. 5. Acute on chronic diastolic CHF. 6. Hypertension with chronic kidney disease. Stable. 7. Chronic kidney disease mineral bone disease maintained on calcitriol. 8. Diabetes mellitus. 9. Anemia of chronic kidney disease. Rule out iron deficiency. Plan: Maintain IV Lasix. Check phosphorus level. Check iron studies. Continue to assess daily for need for renal replacement therapy. Patient interested in doing peritoneal dialysis outpatient.
[2022-07-21 09:48] LABS: Glucose,Whole Blood 119 mg/dL (70-110)
[2022-07-21] MEDS ORDERED: ACETAMINOPHEN TAB 500 MG TAB PO ONE (09:52)
[2022-07-21] MEDS ORDERED: HEPARIN SODIUM,PORCINE 5,000 UNIT/ML 1 ML VIAL SQ ONE (09:53)
--- NOTE | 2022-07-21 10:08 | NM ---
EXAMINATION TYPE: NM sentinel node injection DATE OF EXAM: 07/21/2022 COMPARISON: Right breast ultrasound biopsy 01/23/2022, right breast ultrasound 01/10/2022. HISTORY: History of right breast invasive ductal carcinoma with axillary metastasis. TECHNIQUE AND FINDINGS: The procedure of sentinel lymph node injection was explained to the patient. The benefits, alternatives, and risks were discussed. An informed consent was then obtained. Overlying skin is cleaned with sterile alcohol. Following this, 523 uCi Tc99m Tilmanocept was inject ed in the upper outer aspect of the right nipple intradermally. The patient tolerated the procedure well without any immediate complication. The patient was kept in the radiology department for short stay after the procedure and then taken to surgery for surgical p rocedure what is presumed intraoperative gamma probe will be used for sentinel lymph node detection. IMPRESSION: Right breast radiotracer injection for sentinel node localization as above.
[2022-07-21] MEDS ORDERED: DEXAMETHASONE SOD PHOSPHATE 4 MG/ML 1 ML VIAL IVP ONE (10:11)
[2022-07-21] MEDS ORDERED: ePHEDrine 50 MG/ML 1 ML VIAL ONE (10:14)
[2022-07-21] MEDS ORDERED: MIDAZOLAM 2 MG/2 ML VIAL ONE (10:14)
[2022-07-21] MEDS ORDERED: LIDOCAINE 2% INJ 20 MG/ML (2 ML VIAL) ONE (10:14)
[2022-07-21] MEDS ORDERED: PHENYLEPHRINE-0.9% NACL SYG 1,000 MCG/10 ML SYRINGE ONE (10:14)
[2022-07-21] MEDS ORDERED: fentaNYL (PF) 50 MCG/ML 2 ML AMP ONE (10:14)
[2022-07-21] MEDS ORDERED: PROPOFOL 10 MG/ML 20 ML VIAL IV ONE (10:14)
[2022-07-21] MEDS ORDERED: METHYLENE BLUE 50 MG/10 ML AMPUL INJ ONE (10:30)
[2022-07-21] MEDS ORDERED: SODIUM CHLORIDE 0.9% 100 ML with ceFAZolin 2,000 MG IV ONE ×2 (10:34)
[2022-07-21 11:16] LABS: Phosphorus 4.9 mg/dL (2.5-4.5)
[2022-07-21] MEDS ORDERED: HYDROmorphone 1 MG/ML 1 ML SYRINGE IVP PRN (11:57)
--- NOTE | 2022-07-21 12:01 | P.OP ---
Date of Procedure: 07/21/22 Procedure(s) Performed: PREOPERATIVE DIAGNOSIS: Right breast cancer POSTOPERATIVE DIAGNOSIS: Same PROCEDURE: Right breast simple mastectomy with sentinel lymph node biopsy and wire localization right axillary lymph node SURGEON: Keisha EBL: Chay Claire ANESTHESIA: General COMPLICATIONS: None OPERATIVE PROCEDURE: Patient was placed on the operating room table in the supine position. 2 mL of methylene blue was injected into the subareolar space. The breast was then massaged for 5 minutes. Using the skin marker the proposed incision sites were drawn out on the chest wall. The superior incision was first created. The incision was elliptical in nature encompassing the nipple areolar complex. Flaps were raised superiorly until the chest wall was reached. The axilla was then addressed. The wire entrance site into the axilla was lateral to the incision. In the subcutaneous tissues I found the wire and brought the wire out through our mastectomy incision. Using the neoprobe the wire localized lymph node was noted to be radioactive. This was removed and sent to pathology. An adjacent lymph node was also noted to be radioactive. None of these were blue in color. These were sent for x-ray imaging initially which showed the clip present in the specimen. These were then sent for permanent sectioning. These did not appear frankly malignant. No additional suspicious lymph nodes were seen. The mastectomy incision was then created inferiorly and flaps were again raised until the chest wall was reached. The breast was removed from the chest wall using electrocautery. Multiple vessels were divided using either electrocautery or the clip desktop publisher. The area was irrigated. No bleeding was seen. A drain was placed beneath the flaps of the mastectomy incision. The subcutaneous tissues were then closed using 3-0 Vicryl sutures and the skin was closed using a running 4-0 Monocryl stitch. Prineo dressing was used along the entire length of the incision with Dermabond. The drain was sutured in place using a 3-0 silk stitch. DISPOSITION: Stable to recovery room
[2022-07-21 12:04] LABS: Glucose,Whole Blood 151 mg/dL (70-110)
--- NOTE | 2022-07-21 13:35 | P.PN ---
Progress Note - Text Patient off the floor for mastectomy surgery during cardiology rounds, unable to evalute patient at this time. Will re-evalute patient tomorrow. Please reach out with an questions or concerns.
[2022-07-21 17:07] LABS: Glucose,Whole Blood 189 mg/dL (70-110)
[2022-07-21 18:59] LABS: % Iron Saturation 9.13 (15.00-50.00); Ferritin 61.3 ng/mL (22.0-322.0)
[2022-07-21 19:51] LABS: Glucose,Whole Blood 235 mg/dL (70-110)
[2022-07-21] MEDS: PRAVASTATIN SODIUM 40 MG TAB PO SCH (21:53)
[2022-07-21] MEDS: INSULIN DETEMIR (LEVEMIR) 100 UNIT/ML SYR SQ SCH (21:54)
[2022-07-22 05:55] LABS: Glucose,Whole Blood 166 mg/dL (70-110)
[2022-07-22] MEDS: INSULIN ASPART (NovoLOG) 100 UNIT/ML VIAL SQ SCH ×4 (06:44→20:50)
[2022-07-22] MEDS: hydrALAZINE HCL 50 MG TAB PO SCH ×2 (08:50→20:46)
[2022-07-22] MEDS: FAMOTIDINE 20 MG TAB PO SCH (08:50)
[2022-07-22] MEDS: FOLIC ACID 1 MG TAB PO SCH (08:50)
[2022-07-22] MEDS: allopurinoL 100 MG TAB PO SCH (08:50)
[2022-07-22] MEDS: amLODIPine 5 MG TAB PO SCH (08:50)
[2022-07-22] MEDS: TAMSULOSIN 0.4 MG CAP.ER.24H PO SCH ×2 (08:50→20:46)
[2022-07-22] MEDS: CHOLECALCIFEROL 25 MCG (1000 IU) TABLET PO SCH (08:50)
[2022-07-22] MEDS: METOPROLOL SUCCINATE (ER) 25 MG TAB.ER.24H PO SCH (08:50)
[2022-07-22] MEDS: AMIODARONE 100 MG TAB PO SCH (08:50)
[2022-07-22] MEDS: FERROUS SULFATE 325 MG TAB PO SCH (08:50)
[2022-07-22] MEDS: CHOLESTYRAMINE (WITH SUGAR) 4 GM PACKET PO SCH ×2 (08:57→20:46)
--- NOTE | 2022-07-22 09:26 | P.PN ---
Subjective Patient is seen in follow-up for chronic kidney disease. Renal function stable. Has been voiding in the urinal. No chest pain or shortness of breath. Oral intake has been fair. Hemodynamically stable. Vital signs are stable. General: Awake. No acute distress. HEENT: Head exam is unremarkable. LUNGS: Breath sounds decreased. HEART: Rate and Rhythm are regular. ABDOMEN: Soft, obese. EXTREMITITES: Trace edema. Objective - Vital Signs Vital signs: Vital Signs Temp 97.9 F 07/22/22 05:00 Pulse 73 07/22/22 05:00 Resp 19 07/22/22 05:00 BP 130/66 07/22/22 05:00 Pulse Ox 96 07/22/22 05:00 FiO2 Intake & Output 07/21/22 07/22/22 07/22/22 18:59 06:59 18:59 Intake Total 600 358 Output Total 30 390 Balance 570 -390 358 Weight 98.5 kg 100.5 kg Intake: IV 600 Oral 358 Output: Drainage 40 Right Chest 40 Urine 350 Estimated Blood Loss 30 Other: Voiding Method Urinal # Voids 1 - Labs CBC & Chem 7: 07/21/22 08:01 07/21/22 08:01 Labs: Abnormal Lab Results - Last 24 Hours (Table) 07/21/22 07/21/22 07/21/22 Range/Units 08:01 09:46 12:01 POC Glucose (mg/dL) 119 H 151 H (70-110) mg/dL Phosphorus 4.9 H (2.5-4.5) mg/dL Iron 31 L (65-175) ug/dL % Saturation 9.13 L (15.00-50.00) 07/21/22 07/21/22 07/22/22 Range/Units 17:00 19:47 05:52 POC Glucose (mg/dL) 189 H 235 H 166 H (70-110) mg/dL Phosphorus (2.5-4.5) mg/dL Iron (65-175) ug/dL % Saturation (15.00-50.00) Microbiology - Last 24 Hours (Table) 07/20/22 18:45 Gram Stain - Preliminary Sputum Sputum Culture - Preliminary Assessment and Plan Plan: Assessment: 1. Acute kidney injury secondary to ATN secondary to cardiorenal syndrome versus progression of underlying chronic kidney disease. Renal function stable. Creatinine 5.35 yesterday. 2. Chronic kidney disease stage V secondary to nephrosclerosis with baseline creatinine near 4. 3. Volume overload. Improved with diuresis. 4. Breast cancer. Status post mastectomy with lymph node biopsy 07/21/2022. 5. Acute on chronic diastolic CHF. 6. Hypertension with chronic kidney disease. Stable. 7. Chronic kidney disease mineral bone disease maintained on calcitriol. 8. Diabetes mellitus. 9. Anemia of chronic kidney disease. Iron deficiency noted. Plan: Add oral torsemide. Phosphorus 4.9 dated 07/21/2022. Add IV iron. Continue to assess daily for need for renal replacement therapy. Patient interested in doing peritoneal dialysis outpatient. I did discuss with the patient starting hemodialysis this admission and then transitioning over to peritoneal dialysis for better volume control. Patient states he does not want to start renal replacement therapy at this time.
[2022-07-22 10:03] LABS: Magnesium 2.7 mg/dL (1.6-2.3); Potassium 4.3 mmol/L (3.5-5.1)
--- NOTE | 2022-07-22 10:38 | P.PN ---
Subjective Progress Note Date: 07/22/22 HISTORY OF PRESENT ILLNESS: this is a 72-year-old male with a previous medical history significant for hy pertension and hypertensive cardiovascular disease with left ventricular hypertrophy, hyperlipidemia, diabetes mellitus type 2, with diabetic polyneuropathy, history of coronary artery disease status post coronary artery bypass graft x3 followed by stent, history of atrial fibrillation status post a blation on long-term eliquis, history of meningioma status post resection back in April 2013 with left-sided weakness, history of chronic kidney disease stage IV currently under the care of nephrology with plan for CAPD at later date, history of anemia of chronic kidney disease, history of secondary hyperparathyroidism. Patient also has history of newly diagnosed breast cancer on the right side status post biopsy which revealed invasive moderately differentiated ductal carcinoma status post chemotherapy with plan for radiation therapy following and then surgical intervention. Patient had a recent hospitalization in May for acute diastolic heart failure with right-sided pleural effusion and diarrhea secondary to chemotherapy. He was seen by cardiology oncology and nephrology. Echocardiogram at that time revealed EF of 55%, aortic sclerosis with mild to moderate aortic stenosis. Patient was discharged to home with plan for outpatient follow-up. A chest x-ray done as an outpatient on July 03 revealed stable small to moderate size right pleural effusion with cardiomegaly. Patient had an appointment with Dr. Valdes yesterday thought to have significant shortness of breath and was instructed to come in to the hospital for further evaluation. Patient has had continued shortness of breath and worse over the past few days with cough, exertional dyspnea. Patient came into [facility] emergency center for evaluation. He was found to be afebrile, heart rate 80, blood pressure 114/62, pulse ox 97% on room air. WBC 3.3, hemoglobin 7, platelet count 310. INR 1.1. Sodium 141, potassium 3.5, chloride 108, CO2 20, BUN 38 creatinine 3.2. Glucose 216. Liver function tests normal. Troponin negative on 3 draws. Albumin 3.5. ProBNP 1120. Chest x-ray reveals pulmonary vascular congestion and bilateral pleural effusions. Correlate with BNP for congestive heart failure. VQ scan was intermediate probability for pulmonary embolism. Patient was admitted to the cardiac stepdown unit and cardiology consult and nephrology consult ordered. Will add in consult for oncology, patient's oncologist is Dr. Cameron. He has been started on Lasix 40 mg IV push every 8 hours. 07/18: Patient states that his breathing is better today. He still has a cough with clear sputum production. Patient is unable to lay flat without difficulty breathing. He states he only slept 3-4 hours last night. He ate his oatmeal this morning other who does not look appetizing. Patient has been seen and followed by cardiology, pulmonary medicine and general surgery. Pulmonary medicine has reviewed VQ scan feel this is low probability for pulmonary embolism. Patient discussed that he would like to postpone surgery which is scheduled for Thursday. He has been afebrile, heart rate 62, blood pressure 168/77, pulse ox 90% on 2 L nasal cannula. animal stunner is atrial fibrillation with controlled rate. Repeat lab work reveals electrolytes normal, BUN 49 creatinine 4.78. Blood sugar 124. Blood blood glucose running between 121 and 228. Patient remains on Lasix 80 mg every 12 hours. Weights appear to be an accurate. Plan to monitor patient another 24-48 hours and discharged home. Doubt the patient will require home oxygen therapy but will need to be assessed prior to discharge. 07/19: Patient sitting up in bed in distress, denies any chest pain, shortness b reath, he is not requiring any oxygen, he continues to make urine, Dr. Valdes decided to take him to the OR on Thursday, I spoke with the patient about the risks and benefits and he is in agreement for the surgery at this point in time, this is probably the best that he is going to look patient is a high risk but he is medically optimized for surgical intervention. He complains of constipation discontinue Lomotil continue Colace, follow-up for the patient 07/20: Patient is laying down in bed in no apparent distress, he continues to have some dry cough when he is laying flat, he was seen earlier by pulmonary medicine and general surgery is scheduled to go for surgical intervention with right mastectomy tomorrow morning with Dr. ayala at around 10:00 in the morning, patient is aware of the risks and benefits, and he is willing to proceed. 07/21: Patient denies any new concerns today. Patient's is at bedside. He is scheduled for his surgical procedures today and feels ready to proceed. He has been afebrile, heart rate 78, blood pressure 148/67, pulse ox 99% on 2 L nasal cannula. Repeat blood work reveals WBC 5.5, hemoglobin 8.9, platelet count 219. Electrolytes are normal. BUN 53 and creatinine 5.35. Labile glucose running between 143 and 192. 09/21: Patient underwent right breast simple mastectomy with sentinel lymph node biopsy and wire localization right axillary lymph node with Dr. Valdes. Patient has [address] He states he does not have any pain at the surgical site. He denies shortness of breath, cough. He states he is eating well, no nausea or vomiting, no diarrhea. Patient is also urinating without difficulty. Patient remains afebrile, heart rate 73, blood pressure 130/66, pulse ox 96% on 2 L nasal cannula. Capillary blood glucose running between 166 and 235. REVIEW OF SYSTEMS: Constitutional: No documented fever, no chills, no night sweats. No weight change. positive for weakness, fatigue or lethargy. No daytime sleepiness. HEENT: No headache. No blurred vision or double vision, no loss of vision. No loss of Hearing, no ringing in the ears, no dizziness. No nasal drainage or congestion. No epistaxis. No sore throat. Lungs: positive for shortness of breath-improving, no cough, no sputum production. No wheezing. Reports dyspnea with activity. Cardiovascular: No chest pain, reported lower extremity edema. No palpitations. Reported paroxysmal nocturnal dyspnea. Reports orthopnea. No lightheadedness or dizziness. No syncopal episodes. Abdominal: Reports no abdominal pain. No nausea, vomiting. Reports diarrhea. No constipation. No bloody or tarry stools reports loss of appetite. Genitourinary: No dysuria, increased frequency, urgency. No urinary retention. Musculoskeletal: No myalgias. positive for chronic left sided weakness, positive for gait dysfunction, no frequent falls. positive for back pain. pos itive for neck pain. Integumentary: Surgical wound right upper chest, no lesions. No rash or prurit us. No unusual bruising. No change in hair or nails. Neurologic: No aphasia. No facial droop. No change in mentation. No head injury. No headache, positive for left sided weakness and left foot drop. Psychiatric: positive for depression. No anxiety. No mood swings. Endocrine: No abnormal blood sugars. No weight change. PHYSICAL EXAMINATION: General: this is a 72-year-old male who is sitting up in bed appears to be in no respiratory distress at rest. Patient's is at bedside. HEENT: Head is atraumatic, normocephalic, pupils were equal round, sclera nonicteric, conjunctivae were pale, mucous membranes of the mouth are somewhat dry. Neck: Supple, no JVP, normal carotid upstroke bilaterally, no lymphadenopathy. Chest: Decreased breath sounds at the bases, few rhonchi, no expiratory wheezes, no chest wall tenderness, no intercostal retractions. Dressing in place over the right sided anterior chest wall, LUISITO drain with sanguinous drainage. Heart: First heart sound is normal, second heart sounds normal, irregularly irregular, there is systolic ejection murmur 2/6 located in the left sternal border. Abdomen: Soft, nontender, nondistended, positive bowel sounds. Extremities: There is trace edema to the bilateral lower extremities left greater than right no calf tenderness DP +2 bilaterally. Neurologic examination: Patient is awake alert and oriented X3 , cranial nerves II-12 appear grossly intact, there is left-sided weakness with left foot drop. ASSESSMENT AND PLAN: 1. Acute diastolic heart failure with right pleural effusion. Continue patient on metoprolol XL 25 mg orally once every day, Lasix is on hold, monitor input and output and daily weight, continue patient also on hydralazine 75 mg orally twice every day. Cardiology and pulmonary medicine consult appreciated. 2. Right-sided breast cancer status post chemotherapy. Consult with Dr. Valdes appreciated. Status post sentinel node biopsy and right simple mastectomy 07/22. Continue patient on Dilaudid or Tylenol for pain. Wound care per general surgery. 3. Right pleural effusion with atelectasis. 4. Bicytopenia secondary to cancer. Continue to monitor. 6. History of CAD post CABG as well as PCI and stent placement. Continue patient on metoprolol XL 25 mg once every day, pravastatin 40 mg at bedtime. 7. History of paroxysmal atrial fibrillation. Continue patient to hold Eliquis for surgical intervention, continue amiodarone 100 mg orally once every day, metoprolol XL 25 mg orally once every day. 8. Hypertension and hypertensive cardiovascular disease. Continue patient on a mlodipine 5 mg once every day, continue with metoprolol ER 25 mg orally once every day, monitor the patient blood pressure very closely. 9. Hyperlipidemia. Continue patient on pravastatin 40 mg at bedtime, monitor lipid panel, keep LDL 55-70. 10. Chronic kidney disease stage IV. Avoid nephrotoxic agents, consult nephrology. 11. History of enlarged prostate. Continue Flomax 0.4 mg once every day, monitor for urinary retention. 12. Diabetes mellitus type 2. Continue Lantus 30 units at bedtime, monitor the patient blood glucose level and at bedtime with NovoLog scale 13. Diabetic polyneuropathy. Stable. 14. History of DVT status post IVC filter placement, continue to hold liquids for now. 15. Chronic gout. Continue patient on allopurinol 100 mg orally once every day. 16. History of meningioma with left-sided weakness. Physical therapy evaluation. Impression and plan of care have been directed as dictated by the signing physician. Nita Linn nurse practitioner acting as scribe for signing physician. Objective - Vital Signs Vital signs: Vital Signs Temp 97.9 F 07/22/22 05:00 Pulse 73 07/22/22 05:00 Resp 19 07/22/22 05:00 BP 130/66 07/22/22 05:00 Pulse Ox 96 07/22/22 05:00 FiO2 Intake & Output 07/21/22 07/22/22 07/22/22 18:59 06:59 18:59 Intake Total 600 358 Output Total 30 390 Balance 570 -390 358 Weight 98.5 kg 100.5 kg Intake: IV 600 Oral 358 Output: Drainage 40 Right Chest 40 Urine 350 Estimated Blood Loss 30 Other: Voiding Method Urinal # Voids 1 - Labs CBC & Chem 7: 07/21/22 08:01 07/22/22 09:00 Labs: Abnormal Lab Results - Last 24 Hours (Table) 07/21/22 07/21/22 07/21/22 Range/Units 08:01 08:01 08:01 RBC 2.84 L (4.30-5.90) m/uL Hgb 8.9 L (13.0-17.5) gm/dL Hct 27.8 L (39.0-53.0) % RDW 15.8 H (11.5-15.5) % Lymphocytes # 0.3 L (1.0-4.8) k/uL BUN 53 H (9-20) mg/dL Creatinine 5.35 H (0.66-1.25) mg/dL Glucose 122 H (74-99) mg/dL POC Glucose (mg/dL) (70-110) mg/dL Phosphorus 4.9 H (2.5-4.5) mg/dL Iron 31 L (65-175) ug/dL % Saturation 9.13 L (15.00-50.00) AST 11 L (17-59) U/L Total Protein 5.7 L (6.3-8.2) g/dL 07/21/22 07/21/22 07/21/22 Range/Units 09:46 12:01 17:00 RBC (4.30-5.90) m/uL Hgb (13.0-17.5) gm/dL Hct (39.0-53.0) % RDW (11.5-15.5) % Lymphocytes # (1.0-4.8) k/uL BUN (9-20) mg/dL Creatinine (0.66-1.25) mg/dL Glucose (74-99) mg/dL POC Glucose (mg/dL) 119 H 151 H 189 H (70-110) mg/dL Phosphorus (2.5-4.5) mg/dL Iron (65-175) ug/dL % Saturation (15.00-50.00) AST (17-59) U/L Total Protein (6.3-8.2) g/dL 07/21/22 07/22/22 Range/Units 19:47 05:52 RBC (4.30-5.90) m/uL Hgb (13.0-17.5) gm/dL Hct (39.0-53.0) % RDW (11.5-15.5) % Lymphocytes # (1.0-4.8) k/uL BUN (9-20) mg/dL Creatinine (0.66-1.25) mg/dL Glucose (74-99) mg/dL POC Glucose (mg/dL) 235 H 166 H (70-110) mg/dL Phosphorus (2.5-4.5) mg/dL Iron (65-175) ug/dL % Saturation (15.00-50.00) AST (17-59) U/L Total Protein (6.3-8.2) g/dL Microbiology - Last 24 Hours (Table) 07/20/22 18:45 Gram Stain - Preliminary Sputum Sputum Culture - Preliminary
[2022-07-22] MEDS: SODIUM FERRIC GLUCONAT-SUCROSE 125 MG in SODIUM CHLORIDE 0.9% 100 ML IVPB SCH (11:29)
[2022-07-22 11:32] LABS: Glucose,Whole Blood 165 mg/dL (70-110)
--- NOTE | 2022-07-22 13:02 | P.PN ---
Subjective Progress Note Date: 07/22/22 CHIEF COMPLAINT: CHF exacerbation HISTORY OF PRESENT ILLNESS: Patient is postop day #1 status post right breast simple mastectomy with sentinel lymph node biopsy and wire localization of right axillary lymph node. Patient reports no pain. He denies any nausea or vomiting. Does report improvement in his breathing. Afebrile. Creatinine continues to increase from 5.35-5.56 patient does have a low iron level. IV iron added per nephrology. Nephrology did recommend renal replacement. However patient was not interested in hemodialysis. He would like peritoneal dialysis outpatient. LUISITO drain with 80 ML serosanguineous output today PHYSICAL EXAM: VITAL SIGNS: Reviewed. GENERAL: Well-developed in no acute distress. CHEST: Right breast incision site clean dry and intact. LUISITO drain serosanguine ous output ABDOMEN: Soft. Nondistended. Nontender. NEUROLOGIC: Alert and oriented. Cranial nerves II through XII grossly intact. ASSESSMENT: 1. Right breast cancer status post right breast simple mastectomy with lymph node biopsy 2. Acute CHF exacerbation 3. Acute renal failure PLAN: -Continue supportive care -Continue monitor LUISITO drain output -Continue Tylenol as a for pain control -Continue treatment for CHF exacerbation per cardiology service -Continue management of acute renal failure per nephrology Physician Zinc Miner note has been reviewed by physician. Signing provider agrees with the documented findings, assessment, and plan of care. I have personally seen and examined the patient, reviewed the CONSULTING SME /PAs history, exam and MDM and agree with the assessment and plan as written. Based on total visit time, I have performed more than 50% of the visit. As above: Patient doing well today. Denies pain. Drain output serosanguineous. Keep drain in place for now. Discharge per primary service with drain in place. Objective - Vital Signs Vital signs: Vital Signs Temp 98.0 F 07/22/22 11:33 Pulse 74 07/22/22 11:33 Resp 18 07/22/22 11:33 BP 122/74 07/22/22 11:33 Pulse Ox 92 L 07/22/22 11:33 FiO2 Intake & Output 07/21/22 07/22/22 07/22/22 18:59 06:59 18:59 Intake Total 600 358 Output Total 30 390 40 Balance 570 -390 318 Weight 98.5 kg 100.5 kg Intake: IV 600 Oral 358 Output: Drainage 40 40 Right Chest 40 40 Urine 350 0 Stool 0 Urine/Stool Mix 0 Emesis 0 Oral Regurgitation 0 Estimated Blood Loss 30 Other: Voiding Method Urinal Urinal # Voids 1 0 # Bowel Movements 0 - Labs CBC & Chem 7: 07/21/22 08:01 07/22/22 09:00 Labs: Abnormal Lab Results - Last 24 Hours (Table) 07/21/22 07/21/22 07/21/22 Range/Units 08:01 17:00 19:47 Carbon Dioxide (22-30) mmol/L BUN (9-20) mg/dL Creatinine (0.66-1.25) mg/dL Glucose (74-99) mg/dL POC Glucose (mg/dL) 189 H 235 H (70-110) mg/dL Magnesium (1.6-2.3) mg/dL Iron 31 L (65-175) ug/dL % Saturation 9.13 L (15.00-50.00) 07/22/22 07/22/22 07/22/22 Range/Units 05:52 09:00 11:30 Carbon Dioxide 21 L (22-30) mmol/L BUN 62 H (9-20) mg/dL Creatinine 5.56 H (0.66-1.25) mg/dL Glucose 146 H (74-99) mg/dL POC Glucose (mg/dL) 166 H 165 H (70-110) mg/dL Magnesium 2.7 H (1.6-2.3) mg/dL Iron (65-175) ug/dL % Saturation (15.00-50.00) Microbiology - Last 24 Hours (Table) 07/20/22 18:45 Gram Stain - Preliminary Sputum Sputum Culture - Preliminary
[2022-07-22 13:44] VITALS: BMI 30.9
--- NOTE | 2022-07-22 14:25 | P.PN ---
Subjective The patient is a 72-year-old male who presents with symptoms of progressive dyspnea. He has a known history of chronic kidney disease, paroxysmal atrial fibrillation, breast cancer who was in the hospital about a months ago and has continued to be dyspneic, worse over the last few days with some worsening cough, PND and limited activity. He is dyspneic with minimal physical activity. He is status post CABG in 2004 but had no evidence to suggest recurrent ischemia. His most recent echocardiogram 06/03/2022 showed a preserved systolic function with mild to moderate aortic stenosis and a mean gradient of 16 mmHg. Has stage IV chronic kidney disease. He has received 10 courses of chemotherapy and according to him has been stable. Patient was started on IV Lasix, and transitioned to PO Torsemide. 07/22/2022 Patient underwent right breast simple mastectomy with sentinel lymph node biopsy and wire localization right axillary lymph node with Dr. Valdes. Patient denies chest pain or pressure. Patient states his shortness of breath has improved. Overall he is feeling well, no complaints. PHYSICAL EXAM: VITAL SIGNS: Reviewed. GENERAL: Well-developed in no acute distress. NECK: Supple. No JVD or thyromegaly LUNGS: Respirations even and unlabored. Lungs essentially clear to auscultation bilaterally. HEART: Regular rate and rhythm. S1 and S2 heard. + systolic murmur. EXTREMITIES: Normal range of motion. No clubbing or cyanosis. Peripheral pulses intact. 1+ lower extremity edema ASSESSMENT: Worsening dyspnea, multifactorial with chronic kidney disease, heart failure with preserved systolic function, improved Status post CABG with no evidence of acute ischemia Stage IV chronic kidney disease History of paroxysmal atrial fibrillation History of hypertension History of hyperlipidemia History of diabetes type 2 Breast cancer, post chemotherapy, followed by Dr. Cameron PLAN: Continue current cardiac medications Nephrology following. Monitor kidney function No further changes from a cardiology perspective, we will follow the patient as needed. Close follow up outpatient with Dr. Turcios. Nurse practitioner note has been reviewed by physician. Signing provider agrees with the documented findings, assessment, and plan of care. Objective - Vital Signs Vital signs: Vital Signs Temp 98.0 F 07/22/22 11:33 Pulse 74 07/22/22 11:33 Resp 18 07/22/22 11:33 BP 122/74 07/22/22 11:33 Pulse Ox 92 L 07/22/22 11:33 FiO2 Intake & Output 07/21/22 07/22/22 07/22/22 18:59 06:59 18:59 Intake Total 600 598 Output Total 30 390 40 Balance 570 -390 558 Weight 98.5 kg 100.5 kg 100.5 kg Intake: IV 600 Oral 598 Output: Drainage 40 40 Right Chest 40 40 Urine 350 0 Stool 0 Urine/Stool Mix 0 Emesis 0 Oral Regurgitation 0 Estimated Blood Loss 30 Other: Voiding Method Urinal Urinal # Voids 1 0 # Bowel Movements 0 - Labs CBC & Chem 7: 07/21/22 08:01 07/22/22 09:00 Labs: Abnormal Lab Results - Last 24 Hours (Table) 07/21/22 07/21/22 07/21/22 Range/Units 08:01 17:00 19:47 Carbon Dioxide (22-30) mmol/L BUN (9-20) mg/dL Creatinine (0.66-1.25) mg/dL Glucose (74-99) mg/dL POC Glucose (mg/dL) 189 H 235 H (70-110) mg/dL Magnesium (1.6-2.3) mg/dL Iron 31 L (65-175) ug/dL % Saturation 9.13 L (15.00-50.00) 07/22/22 07/22/22 07/22/22 Range/Units 05:52 09:00 11:30 Carbon Dioxide 21 L (22-30) mmol/L BUN 62 H (9-20) mg/dL Creatinine 5.56 H (0.66-1.25) mg/dL Glucose 146 H (74-99) mg/dL POC Glucose (mg/dL) 166 H 165 H (70-110) mg/dL Magnesium 2.7 H (1.6-2.3) mg/dL Iron (65-175) ug/dL % Saturation (15.00-50.00) Microbiology - Last 24 Hours (Table) 07/20/22 18:45 Gram Stain - Preliminary Sputum Sputum Culture - Preliminary
--- NOTE | 2022-07-22 14:31 | P.PN ---
Subjective Progress Note Date: 07/22/22 Principal diagnosis: Acute congestive heart failure with preserved systolic function 72-year-old male who presented to the emergency department on July 16, complaining of shortness of breath. He apparently been having shortness breath, which is been progressively worse over the course of many days and even a week or so. His breathing becomes much worse when he lays flat. He does have a dry nonproductive cough. No fever or chills. No chest pain. He was admitted back in May, for a similar episode. He has a history of right breast cancer, atrial fibrillation/flutter, CAD, diabetes mellitus, DVT, GERD, hyperlipidemia, hypertension, myocardial infarction, and sleep apnea. White count 3.7, hemoglobin 9.2, hematocrit 28.7, and platelet count 228,000. His d-dimer was 1.35. Sodium 141, potassium 3.8, chlorides 104, CO2 22, anion gap 15, BUN 51, creatinine 4.34. The patient's troponin was 0.034, 0.036, and 0.037. N- terminal proBNP was 1270. TSH was normal. Chest x-ray shows cardiomegaly, pulmonary vascular congestion, and bilateral pleural effusions. A perfusion lung scan was indeterminate. The patient was on a factor X a inhibitor anyway. Progress note dated 07/18/2022. 72-year-old male who I saw yesterday in consultation with shortness of breath. The patient was to have a right mastectomy, for breast cancer, on July 21. He has a history of atrial fibrillation, CAD, diabetes, DVT, GERD, hyperlipidemia, hypertension, myocardial infarction, and sleep apnea. Chest x- ray showed cardiomegaly, pulmonary vascular congestion, and bilateral pleural effusions. Sodium 140, potassium 3.7, chlorides 105, CO2 23, anion gap 12, BUN 49, creatinine 4.78. Progress note dated 07/19/2022. This is a 72-year-old male seen in room 361. He currently is on 3 L of oxygen. No IV fluids. The patient mentioned to me that he may need hemodialysis. Initially, he was going to have a right mastectomy done by the general surgeon, on July 21. That may be on hold. No new labs today as yet. No chest x-ray today. The patient states that his breathing is stable. He denies any shortness of breath, cough, wheezing, phlegm production, or chest pain. Progress note dated 07/20/2022. 72-year-old male again seen in room 361. He remains on oxygen at between 2-3 L. No IV fluids. The patient is possibly going to have a right mastectomy tomorrow. The patient is stable. I did talk to the surgeon about this patient. He's doing much better than when he first came in. No new laboratory data today. The patient's glucose was 120. Reevaluated today on 07/22/2022, patient had uneventful surgery yesterday, and the patient is doing quite well, asymptomatic. He is on room air with O2 saturations 92%. No cough no wheezing no chest pain no fever no chills no hemoptysis. Electrolytes are normal however his renal profile is quite abnormal with a BUN of 62 creatinine 5.56. Patient is known to have chronic kidney disease stage V secondary to nephrosclerosis his baseline creatinine is 4. Yesterday the patient underwent the right breast simple mastectomy with sentinel lymph node biopsy and wire localization right axillary lymph node. Objective - Vital Signs Vital signs: Vital Signs Temp 98.0 F 07/22/22 11:33 Pulse 74 07/22/22 11:33 Resp 18 07/22/22 11:33 BP 122/74 07/22/22 11:33 Pulse Ox 92 L 07/22/22 11:33 FiO2 Intake & Output 07/21/22 07/22/22 07/22/22 18:59 06:59 18:59 Intake Total 600 598 Output Total 30 390 40 Balance 570 -390 558 Weight 98.5 kg 100.5 kg 100.5 kg Intake: IV 600 Oral 598 Output: Drainage 40 40 Right Chest 40 40 Urine 350 0 Stool 0 Urine/Stool Mix 0 Emesis 0 Oral Regurgitation 0 Estimated Blood Loss 30 Other: Voiding Method Urinal Urinal # Voids 1 0 # Bowel Movements 0 - Exam Physical Exam: Revealed 72-year-old white male in no distress. Head: Atraumatic, normocephalic. HEENT:[Neck is supple.] [No neck masses.] [No thyromegaly.] [No JVD.] Chest: [Menest breath sounds at the bases no crackles or rhonchi or wheezes Cardiac Exam: [Normal S1 and S2, no S3 gallop, no murmur.] Abdomen: [Soft, nontender, no megaly, no rebound, no guarding, normal bowel so unds.] Extremities: [No clubbing, no edema, no cyanosis.] Neurological Exam: [No focal neurologic deficit.] Psychiatric: Normal mood affect and normal mental status examination. Skin: No rashes. Surgical site over the right breast seems to be unremarkable. And dry dressing noted. - Labs CBC & Chem 7: 07/21/22 08:01 07/22/22 09:00 Labs: Abnormal Lab Results - Last 24 Hours (Table) 07/21/22 07/21/22 07/21/22 Range/Units 08:01 17:00 19:47 Carbon Dioxide (22-30) mmol/L BUN (9-20) mg/dL Creatinine (0.66-1.25) mg/dL Glucose (74-99) mg/dL POC Glucose (mg/dL) 189 H 235 H (70-110) mg/dL Magnesium (1.6-2.3) mg/dL Iron 31 L (65-175) ug/dL % Saturation 9.13 L (15.00-50.00) 07/22/22 07/22/22 07/22/22 Range/Units 05:52 09:00 11:30 Carbon Dioxide 21 L (22-30) mmol/L BUN 62 H (9-20) mg/dL Creatinine 5.56 H (0.66-1.25) mg/dL Glucose 146 H (74-99) mg/dL POC Glucose (mg/dL) 166 H 165 H (70-110) mg/dL Magnesium 2.7 H (1.6-2.3) mg/dL Iron (65-175) ug/dL % Saturation (15.00-50.00) Microbiology - Last 24 Hours (Table) 07/20/22 18:45 Gram Stain - Preliminary Sputum Sputum Culture - Preliminary Assessment and Plan Assessment: Impression: Right breast cancer, status post right breast simple mastectomy with sentinel lymph node biopsy and wire localization of right axillary lymph node, postoperative day #1. Fluid overload suspect diastolic congestive heart failure and suspected fluid overload secondary to chronic kidney disease stage 1V. Right pleural effusion with atelectasis. History of underlying coronary artery disease, previous CABG Paroxysmal atrial fibrillation History of DVT and previous IVC filter placement Chronic gout History of meningioma and chronic left-sided weakness. Recommendation: Continue present supportive care measures Continue cardiac meds including amiodarone. Continue Demadex Continue statins Continue insulin Incentive spirometry Will follow as needed. Time with Patient: Less than 30
[2022-07-22 16:28] LABS: Glucose,Whole Blood 195 mg/dL (70-110)
[2022-07-22 20:27] LABS: Glucose,Whole Blood 193 mg/dL (70-110)
[2022-07-22] MEDS: INSULIN DETEMIR (LEVEMIR) 100 UNIT/ML SYR SQ SCH (20:46)
[2022-07-22] MEDS: PRAVASTATIN SODIUM 40 MG TAB PO SCH (20:46)
[2022-07-23 06:26] LABS: Glucose,Whole Blood 193 mg/dL (70-110)
[2022-07-23] MEDS: INSULIN ASPART (NovoLOG) 100 UNIT/ML VIAL SQ SCH ×2 (06:38→12:22)
--- NOTE | 2022-07-23 08:55 | P.PN ---
Subjective Patient is seen in follow-up for chronic kidney disease. Renal function fairly stable. Has been voiding in the urinal. No chest pain or shortness of breath. Oral intake has been fair. Hemodynamically stable. No active complaints. Vital signs are stable. General: Awake. No acute distress. HEENT: Head exam is unremarkable. LUNGS: Breath sounds decreased. HEART: Rate and Rhythm are regular. ABDOMEN: Soft, obese. EXTREMITITES: Trace edema. Objective - Vital Signs Vital signs: Vital Signs Temp 98.2 F 07/23/22 04:00 Pulse 59 L 07/23/22 04:00 Resp 18 07/23/22 04:00 BP 134/68 07/23/22 04:00 Pulse Ox 97 07/23/22 04:00 FiO2 Intake & Output 07/22/22 07/23/22 07/23/22 18:59 06:59 18:59 Intake Total 838 Output Total 140 240 Balance 698 -240 Weight 100.5 kg Intake: Oral 838 Output: Drainage 40 40 Right Chest 40 40 Urine 100 200 Stool 0 0 Urine/Stool Mix 0 Emesis 0 Oral Regurgitation 0 Other: Voiding Method Urinal Urinal # Voids 0 2 # Bowel Movements 0 - Labs CBC & Chem 7: 07/21/22 08:01 07/22/22 09:00 Labs: Abnormal Lab Results - Last 24 Hours (Table) 07/22/22 07/22/22 07/22/22 Range/Units 09:00 11:30 16:26 Carbon Dioxide 21 L (22-30) mmol/L BUN 62 H (9-20) mg/dL Creatinine 5.56 H (0.66-1.25) mg/dL Glucose 146 H (74-99) mg/dL POC Glucose (mg/dL) 165 H 195 H (70-110) mg/dL Magnesium 2.7 H (1.6-2.3) mg/dL 07/22/22 07/23/22 Range/Units 20:25 06:24 Carbon Dioxide (22-30) mmol/L BUN (9-20) mg/dL Creatinine (0.66-1.25) mg/dL Glucose (74-99) mg/dL POC Glucose (mg/dL) 193 H 193 H (70-110) mg/dL Magnesium (1.6-2.3) mg/dL Assessment and Plan Plan: Assessment: 1. Acute kidney injury secondary to ATN secondary to cardiorenal syndrome versus progression of underlying chronic kidney disease. Renal function stable. Creatinine 5.56 yesterday. 2. Chronic kidney disease stage V secondary to nephrosclerosis with baseline creatinine near 4. 3. Volume overload. Improved with diuresis. 4. Breast cancer. Status post mastectomy with lymph node biopsy 07/21/2022. 5. Acute on chronic diastolic CHF. 6. Hypertension with chronic kidney disease. Stable. 7. Chronic kidney disease mineral bone disease maintained on calcitriol. 8. Diabetes mellitus. 9. Anemia of chronic kidney disease. Iron deficiency noted. Plan: Maintain torsemide. Phosphorus 4.9 dated 07/21/2022. Maintain IV iron. Continue to assess daily for need for renal replacement therapy. Patient interested in doing peritoneal dialysis outpatient. I did discuss with the patient starting hemodialysis this admission and then transitioning over to peritoneal dialysis for better volume control. Patient states he does not want to start renal replacement therapy at this time. Signs and symptoms of uremia were discussed with the patient in detail and was advised to come back to the hospital if develops any. Follow up outpatient within 1 week post discharge.
[2022-07-23] MEDS ORDERED: TORSEMIDE 20 MG TAB PO SCH (09:00)
[2022-07-23] MEDS: allopurinoL 100 MG TAB PO SCH (09:13)
[2022-07-23] MEDS: hydrALAZINE HCL 50 MG TAB PO SCH (09:13)
[2022-07-23] MEDS: AMIODARONE 100 MG TAB PO SCH (09:14)
[2022-07-23] MEDS: FOLIC ACID 1 MG TAB PO SCH (09:14)
[2022-07-23] MEDS: METOPROLOL SUCCINATE (ER) 25 MG TAB.ER.24H PO SCH (09:14)
[2022-07-23] MEDS: FAMOTIDINE 20 MG TAB PO SCH (09:14)
[2022-07-23] MEDS: amLODIPine 5 MG TAB PO SCH (09:14)
[2022-07-23] MEDS: TAMSULOSIN 0.4 MG CAP.ER.24H PO SCH (09:14)
[2022-07-23] MEDS: CHOLESTYRAMINE (WITH SUGAR) 4 GM PACKET PO SCH (09:16)
[2022-07-23 12:03] LABS: Glucose,Whole Blood 195 mg/dL (70-110)
[2022-07-23] MEDS: SODIUM FERRIC GLUCONAT-SUCROSE 125 MG in SODIUM CHLORIDE 0.9% 100 ML IVPB SCH (12:26)
[2022-07-23 13:13] VITALS: BP 130/79; PULSE 74; RESP 18; TEMP 97.8
--- NOTE | 2022-07-23 13:32 | P.DS ---
Providers Date of admission: 07/16/22 19:55 Expected date of discharge: 07/23/22 Attending physician: Pablo Jon Consults: 07/16/22 19:54 Consult Physician Routine Consulting Provider: Megha Meyer Consult Reason/Comments: dyspnea Do you want consulting provider notified?: Yes Consult Physician Routine Consulting Provider: Yin Campos Consult Reason/Comments: Acute on chronic renal failure Do you want consulting provider notified?: Yes 07/16/22 23:21 Consult Physician Routine Consulting Provider: Thuy Pablo Consult Reason/Comments: positive trops Do you want consulting provider notified?: Yes, Notify in am 07/17/22 10:08 Consult Physician Routine Consulting Provider: Nazario Valdes Consult Reason/Comments: PKTY - admitted for CHF, surgery scheduled with you 07/21 OP Do you want consulting provider notified?: Yes Primary care physician: Pablo Jon Hospital Course: HISTORY OF PRESENT ILLNESS: this is a 72-year-old male with a previous medical history significant for hypertension and hypertensive cardiovascular disease with left ventricular hypertrophy, hyperlipidemia, diabetes mellitus type 2, with diabetic polyneuropathy, history of coronary artery disease status post coronary artery bypass graft x3 followed by stent, history of atrial fibrillation status post ablation on long-term eliquis, history of meningioma status post resection back in April 2013 with left-sided weakness, history of chronic kidney disease stage IV currently under the care of nephrology with plan for CAPD at later date, history of anemia of chronic kidney disease, history of secondary hyperparathyroidism. Patient also has history of newly diagnosed breast cancer on the right side status post biopsy which revealed invasive moderately differentiated ductal carcinoma status post chemotherapy with plan for radiation therapy following and then surgical intervention. Patient had a recent hospitalization in May for acute diastolic heart failure with right-sided pleural effusion and diarrhea secondary to chemotherapy. He was seen by cardiology oncology and nephrology. Echocardiogram at that time revealed EF of 55%, aortic sclerosis with mild to moderate aortic stenosis. Patient was discharged to home with plan for outpatient follow-up. A chest x-ray done as an outpatient on July 03 revealed stable small to moderate size right pleural effusion with cardiomegaly. Patient had an appointment with Dr. Valdes yesterday thought to have significant shortness of breath and was instructed to come in to the hospital for further evaluation. Patient has had continued shortness of breath and worse over the past few days with cough, exertional dyspnea. Patient came into [facility] emergency center for evaluation. He was found to be afebrile, heart rate 80, blood pressure 114/62, pulse ox 97% on room air. WBC 3.3, hemoglobin 7, platelet count 310. INR 1.1. Sodium 141, potassium 3.5, chloride 108, CO2 20, BUN 38 creatinine 3.2. Glucose 216. Liver function tests normal. Troponin negative on 3 draws. Albumin 3.5. ProBNP 1120. Chest x-ray reveals pulmonary vascular congestion and bilateral pleural effusions. Correlate with BNP for congestive heart failure. VQ scan was intermediate probability for pulmonary embolism. Patient was admitted to the cardiac stepdown unit and cardiology consult and nephrology consult ordered. Will add in consult for oncology, patient's oncologist is Dr. Cameron. He has been started on Lasix 40 mg IV push every 8 hours. 07/18: Patient states that his breathing is better today. He still has a cough with clear sputum production. Patient is unable to lay flat without difficulty breathing. He states he only slept 3-4 hours last night. He ate his oatmeal this morning other who does not look appetizing. Patient has been seen and followed by cardiology, pulmonary medicine and general surgery. Pulmonary medicine has reviewed VQ scan feel this is low probability for pulmonary embolism. Patient discussed that he would like to postpone surgery which is scheduled for Thursday. He has been afebrile, heart rate 62, blood pressure 168/77, pulse ox 90% on 2 L nasal cannula. 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 Repeat lab work reveals electrolytes normal, BUN 49 creatinine 4.78. Blood sugar 124. Blood blood glucose running between 121 and 228. Patient remains on Lasix 80 mg every 12 hours. Weights appear to be an accurate. Plan to monitor patient another 24-48 hours and discharged home. Doubt the patient will require home oxygen therapy but will need to be assessed prior to discharge. 07/19: Patient sitting up in bed in distress, denies any chest pain, shortness breath, he is not requiring any oxygen, he continues to make urine, Dr. Valdes decided to take him to the OR on Thursday, I spoke with the patient about the risks and benefits and he is in agreement for the surgery at this point in time, this is probably the best that he is going to look patient is a high risk but he is medically optimized for surgical intervention. He complains of constipation discontinue Lomotil continue Colace, follow-up for the patient 07/20: Patient is laying down in bed in no apparent distress, he continues to have some dry cough when he is laying flat, he was seen earlier by pulmonary medicine and general surgery is scheduled to go for surgical intervention with right mastectomy tomorrow morning with Dr. ayala at around 10:00 in the morning, patient is aware of the risks and benefits, and he is willing to proceed. 07/21: Patient denies any new concerns today. Patient's is at bedside. He is scheduled for his surgical procedures today and feels ready to proceed. He has been afebrile, heart rate 78, blood pressure 148/67, pulse ox 99% on 2 L nasal cannula. Repeat blood work reveals WBC 5.5, hemoglobin 8.9, platelet count 219. Electrolytes are normal. BUN 53 and creatinine 5.35. Labile glucose running between 143 and 192. 07/22: Patient underwent right breast simple mastectomy with sentinel lymph node biopsy and wire localization right axillary lymph node with Dr. Valdes. Patient has [address] He states he does not have any pain at the surgical site. He denies shortness of breath, cough. He states he is eating well, no nausea or vomiting, no diarrhea. Patient is also urinating without difficulty. Patient remains afebrile, heart rate 73, blood pressure 130/66, pulse ox 96% on 2 L nasal cannula. Capillary blood glucose running between 166 and 235. 07/23: Patient is seen and followed by cardiology and they have signed off the case following on an as needed basis. Pulmonary medicine is also following on an as-needed basis. Nephrology is recommending hemodialysis on this admission and transition to peritoneal dialysis the patient would like to hold on this. Lasix has been transitioned to oral torsemide and patient has been started on Ferrlecit which today he will receive his second dose of 3. Patient remains afebrile, heart rate in the 50s to 70s, blood pressure 134/68 and pulse ox 97% on room air. Repeat blood work was canceled as patient refused blood draw this morning. Patient has been cleared for discharge by general surgery. Patient will be discharged today in stable condition. LUISITO drain to remain in place.. DISCHARGE DIAGNOSES 1. Acute diastolic heart failure with right pleural effusion. 2. Right-sided breast cancer status post chemotherapy. 3. Right pleural effusion with atelectasis. 4. Bicytopenia secondary to cancer. 6. History of CAD post CABG as well as PCI and stent placement. 7. History of paroxysmal atrial fibrillation. 8. Hypertension and hypertensive cardiovascular disease. 9. Hyperlipidemia. 10. Chronic kidney disease stage IV. 11. History of enlarged prostate. 12. Diabetes mellitus type 2. 13. Diabetic polyneuropathy. Stable. 14. History of DVT status post IVC filter placement. 15. Chronic gout. 16. History of meningioma with left-sided weakness. 17. Anemia of chronic kidney disease. DISCHARGE PLAN Home Greater than 35 minutes was utilized and coordinating patient's discharge. Impression and plan of care have been directed as dictated by the signing physician. Nita Linn nurse practitioner acting as scribe for signing physician. Patient Condition at Discharge: Stable Plan - Discharge Summary Discharge Rx Participant: No New Discharge Prescriptions: New INSULIN ASPART (NovoLOG) [NovoLOG (formulary)] 0 unit SQ ACHS each Torsemide [Demadex] 40 mg PO DAILY #30 tab Continue Tamsulosin HCl [Flomax] 0.4 mg PO BID amLODIPine [Norvasc] 5 mg PO DAILY hydrALAZINE HCL [Apresoline] 75 mg PO BID Ferrous Sulfate [Iron (65 MG Elemental)] 325 mg PO DAILY Pravastatin Sodium [Pravachol] 40 mg PO HS allopurinoL [Zyloprim] 100 mg PO DAILY Amiodarone [Cordarone] 100 mg PO DAILY Folic Acid 0.8 mg PO DAILY Cholestyramine (with Sugar) [Questran Packet] 4 gm PO BID Lidocaine-Prilocaine Cream [Emla Cream 2.5%/2.5%] 1 applic TOPICAL DAILY PRN PRN Reason: port access Famotidine [Pepcid] 20 mg PO DAILY PRN PRN Reason: GERDS Cholecalciferol [Vitamin D3 (25 Mcg = 1000 Iu)] 25 mcg PO DAILY Metoprolol Succinate (ER) [Toprol XL] 25 mg PO DAILY calcitrioL [Calcitriol] 0.25 mcg PO MO Diphenoxylate HCl/Atropine [Lomotil 2.5-0.025 mg Tablet] 1 tab PO DAILY Docusate [Colace] 100 mg PO BID PRN cap PRN Reason: Constipation Apixaban [Eliquis] 2.5 mg PO BID #0 Insulin Glargine,Hum.rec.anlog [Lantus Solostar Pen] 30 units SQ HS #0 Discontinued INSULIN ASPART (NovoLOG) [NovoLOG (formulary)] 25 unit SQ AC-BID Furosemide [Lasix] 40 mg PO BID Discharge Medication List Tamsulosin HCl [Flomax] 0.4 mg PO BID 06/19/15 [History] amLODIPine [Norvasc] 5 mg PO DAILY 07/09/16 [History] Ferrous Sulfate [Iron (65 MG Elemental)] 325 mg PO DAILY 03/21/21 [History] Pravastatin Sodium [Pravachol] 40 mg PO HS 03/21/21 [History] allopurinoL [Zyloprim] 100 mg PO DAILY 03/21/21 [History] hydrALAZINE HCL [Apresoline] 75 mg PO BID 03/21/21 [History] Cholecalciferol [Vitamin D3 (25 Mcg = 1000 Iu)] 25 mcg PO DAILY 01/13/22 [History] Amiodarone [Cordarone] 100 mg PO DAILY 02/07/22 [History] Folic Acid 0.8 mg PO DAILY 02/07/22 [History] Metoprolol Succinate (ER) [Toprol XL] 25 mg PO DAILY 02/07/22 [History] Cholestyramine (with Sugar) [Questran Packet] 4 gm PO BID 06/03/22 [History] Diphenoxylate HCl/Atropine [Lomotil 2.5-0.025 mg Tablet] 1 tab PO DAILY 06/03/22 [History] Lidocaine-Prilocaine Cream [Emla Cream 2.5%/2.5%] 1 applic TOPICAL DAILY PRN 06/03/22 [History] calcitrioL [Calcitriol] 0.25 mcg PO MO 06/03/22 [History] Apixaban [Eliquis] 2.5 mg PO BID #0 06/07/22 [Rx] Docusate [Colace] 100 mg PO BID PRN cap 06/07/22 [Rx] Insulin Glargine,Hum.rec.anlog [Lantus Solostar Pen] 30 units SQ HS #0 06/07/22 [Rx] Famotidine [Pepcid] 20 mg PO DAILY PRN 07/16/22 [History] INSULIN ASPART (NovoLOG) [NovoLOG (formulary)] 0 unit SQ ACHS each 07/23/22 [Rx] Torsemide [Demadex] 40 mg PO DAILY #30 tab 07/23/22 [Rx] Follow up Appointment(s)/Referral(s): Pablo Jon MD [Primary Care Provider] - 07/31/22 3:00 pm Tavon Escobedo DO [STAFF PHYSICIAN] - 1 Week Everette Turcios MD [STAFF PHYSICIAN] - 2 Weeks Lupillo Begum DO [Doctor of Osteopathic Medicine] - 2 Weeks Nazario Valdes MD [Medical Doctor] - 1 Week Discharge Disposition: HOME SELF-CARE
--- NOTE | 2022-07-23 13:49 | P.PN ---
Subjective Progress Note Date: 07/23/22 CHIEF COMPLAINT: CHF exacerbation HISTORY OF PRESENT ILLNESS: Patient is postop day #2 status post right breast simple mastectomy with sentinel lymph node biopsy and wire localization of right axillary lymph node. Patient reports no pain. He denies any nausea or vomiting. Patient does report improvement in his breathing. LUISITO drain 120 mL serosanguinous output. I will be here PHYSICAL EXAM: VITAL SIGNS: Reviewed. GENERAL: Well-developed in no acute distress. CHEST: Right breast incision site clean dry and intact. LUISITO drain serosanguineous output ABDOMEN: Soft. Nondistended. Nontender. NEUROLOGIC: Alert and oriented. Cranial nerves II through XII grossly intact. ASSESSMENT: 1. Right breast cancer status post right breast simple mastectomy with lymph node biopsy 2. Acute CHF exacerbation 3. Acute renal failure PLAN: -Okay to discharge surgical standpoint -Patient to be discharged with LUISITO drain -Continue supportive care Physician Nuclear Security Officer note has been reviewed by physician. Signing provider agrees with the documented findings, assessment, and plan of care. Objective - Vital Signs Vital signs: Vital Signs Temp 97.8 F 07/23/22 12:00 Pulse 74 07/23/22 12:00 Resp 18 07/23/22 12:00 BP 130/79 07/23/22 12:00 Pulse Ox 94 L 07/23/22 12:00 FiO2 Intake & Output 07/22/22 07/23/22 07/23/22 18:59 06:59 18:59 Intake Total 838 480 Output Total 140 240 500 Balance 698 -240 -20 Weight 100.5 kg Intake: Oral 838 480 Output: Drainage 40 40 Right Chest 40 40 Urine 100 200 500 Stool 0 0 Urine/Stool Mix 0 Emesis 0 Oral Regurgitation 0 Other: Voiding Method Urinal Urinal Urinal # Voids 0 2 # Bowel Movements 0 - Labs CBC & Chem 7: 07/21/22 08:01 07/22/22 09:00 Labs: Abnormal Lab Results - Last 24 Hours (Table) 07/22/22 07/22/22 07/23/22 Range/Units 16:26 20:25 06:24 POC Glucose (mg/dL) 195 H 193 H 193 H (70-110) mg/dL 07/23/22 Range/Units 12:01 POC Glucose (mg/dL) 195 H (70-110) mg/dL Microbiology - Last 24 Hours (Table) 07/20/22 18:45 Gram Stain - Final Sputum Sputum Culture - Final
--- NOTE | 2022-07-23 14:18 | P.PN ---
Subjective Progress Note Date: 07/23/22 Principal diagnosis: Acute congestive heart failure with preserved systolic function 72-year-old male who presented to the emergency department on July 16, complaining of shortness of breath. He apparently been having shortness breath, which is been progressively worse over the course of many days and even a week or so. His breathing becomes much worse when he lays flat. He does have a dry nonproductive cough. No fever or chills. No chest pain. He was admitted back in May, for a similar episode. He has a history of right breast cancer, atrial fibrillation/flutter, CAD, diabetes mellitus, DVT, GERD, hyperlipidemia, hypertension, myocardial infarction, and sleep apnea. White count 3.7, hemoglobin 9.2, hematocrit 28.7, and platelet count 228,000. His d-dimer was 1.35. Sodium 141, potassium 3.8, chlorides 104, CO2 22, anion gap 15, BUN 51, creatinine 4.34. The patient's troponin was 0.034, 0.036, and 0.037. N- terminal proBNP was 1270. TSH was normal. Chest x-ray shows cardiomegaly, pulmonary vascular congestion, and bilateral pleural effusions. A perfusion lung scan was indeterminate. The patient was on a factor X a inhibitor anyway. Progress note dated 07/18/2022. 72-year-old male who I saw yesterday in consultation with shortness of breath. The patient was to have a right mastectomy, for breast cancer, on July 21. He has a history of atrial fibrillation, CAD, diabetes, DVT, GERD, hyperlipidemia, hypertension, myocardial infarction, and sleep apnea. Chest x- ray showed cardiomegaly, pulmonary vascular congestion, and bilateral pleural effusions. Sodium 140, potassium 3.7, chlorides 105, CO2 23, anion gap 12, BUN 49, creatinine 4.78. Progress note dated 07/19/2022. This is a 72-year-old male seen in room 361. He currently is on 3 L of oxygen. No IV fluids. The patient mentioned to me that he may need hemodialysis. Initially, he was going to have a right mastectomy done by the general surgeon, on July 21. That may be on hold. No new labs today as yet. No chest x-ray today. The patient states that his breathing is stable. He denies any shortness of breath, cough, wheezing, phlegm production, or chest pain. Progress note dated 07/20/2022. 72-year-old male again seen in room 361. He remains on oxygen at between 2-3 L. No IV fluids. The patient is possibly going to have a right mastectomy tomorrow. The patient is stable. I did talk to the surgeon about this patient. He's doing much better than when he first came in. No new laboratory data today. The patient's glucose was 120. Reevaluated today on 07/22/2022, patient had uneventful surgery yesterday, and the patient is doing quite well, asymptomatic. He is on room air with O2 saturations 92%. No cough no wheezing no chest pain no fever no chills no hemoptysis. Electrolytes are normal however his renal profile is quite abnormal with a BUN of 62 creatinine 5.56. Patient is known to have chronic kidney disease stage V secondary to nephrosclerosis his baseline creatinine is 4. Yesterday the patient underwent the right breast simple mastectomy with sentinel lymph node biopsy and wire localization right axillary lymph node. Reevaluated today on 07/23/22, patient is doing well, no active pulmonary issues, patient was advised to use incentive spirometry, he is not in any distress, he is on room air, and I believe the patient could be considered for discharge planning if cleared by all consultants. Labs today are basically all normal including CBC and basic metabolic profile and renal profile Objective - Vital Signs Vital signs: Vital Signs Temp 97.8 F 07/23/22 12:00 Pulse 74 07/23/22 12:00 Resp 18 07/23/22 12:00 BP 130/79 07/23/22 12:00 Pulse Ox 94 L 07/23/22 12:00 FiO2 Intake & Output 07/22/22 07/23/22 07/23/22 18:59 06:59 18:59 Intake Total 838 480 Output Total 140 240 500 Balance 698 -240 -20 Weight 100.5 kg Intake: Oral 838 480 Output: Drainage 40 40 Right Chest 40 40 Urine 100 200 500 Stool 0 0 Urine/Stool Mix 0 Emesis 0 Oral Regurgitation 0 Other: Voiding Method Urinal Urinal Urinal # Voids 0 2 # Bowel Movements 0 - Exam Physical Exam: Revealed 72-year-old white male in no distress. On room air Head: Atraumatic, normocephalic. HEENT:[Neck is supple.] [No neck masses.] [No thyromegaly.] [No JVD.] Chest: [Menest breath sounds at the bases no crackles or rhonchi or wheezes Cardiac Exam: [Normal S1 and S2, no S3 gallop, no murmur.] Abdomen: [Soft, nontender, no megaly, no rebound, no guarding, normal bowel sounds.] Extremities: [No clubbing, no edema, no cyanosis.] Neurological Exam: [No focal neurologic deficit.] Psychiatric: Normal mood affect and normal mental status examination. Skin: No rashes. Surgical site over the right breast seems to be unremarkable. And dry dressing noted. - Labs CBC & Chem 7: 07/21/22 08:01 07/22/22 09:00 Labs: Abnormal Lab Results - Last 24 Hours (Table) 07/22/22 07/22/22 07/23/22 Range/Units 16:26 20:25 06:24 POC Glucose (mg/dL) 195 H 193 H 193 H (70-110) mg/dL 07/23/22 Range/Units 12:01 POC Glucose (mg/dL) 195 H (70-110) mg/dL Microbiology - Last 24 Hours (Table) 07/20/22 18:45 Gram Stain - Final Sputum Sputum Culture - Final Assessment and Plan Assessment: Impression: Right breast cancer, status post right breast simple mastectomy with sentinel lymph node biopsy and wire localization of right axillary lymph node, postoperative day #2 Fluid overload suspect diastolic congestive heart failure and suspected fluid overload secondary to chronic kidney disease stage 1V. Right pleural effusion with atelectasis. History of underlying coronary artery disease, previous CABG Paroxysmal atrial fibrillation History of DVT and previous IVC filter placement Chronic gout History of meningioma and chronic left-sided weakness. Recommendation: Continue present supportive care measures Incentive spirometry Consider discharge planning Will follow as needed. Time with Patient: Less than 30
== END 2022-07-23 15:40 | disposition home or self-care (01) | DRG 264 ==
LOC: EC 15:16 → 3SCARD 19:55
PROVIDERS: ADMIT Internal Medicine; ATTEND Internal Medicine
PROC: 0HTT0ZZ Resection of Right Breast, Open Approach (ICD-10-PCS; principal; 2022-07-21 10:15)
PROC: 07B50ZX Excision of Right Axillary Lymphatic, Open Approach, Diagnostic (ICD-10-PCS; principal; 2022-07-21 10:15)
DX: I13.2 Hypertensive heart and chronic kidney disease with heart failure and with stage 5 chronic kidney disease, or end stage renal disease (principal); I50.33 Acute on chronic diastolic (congestive) heart failure; N17.0 Acute kidney failure with tubular necrosis; J96.01 Acute respiratory failure with hypoxia; I48.92 Unspecified atrial flutter; N18.5 Chronic kidney disease, stage 5; N25.81 Secondary hyperparathyroidism of renal origin; I35.0 Nonrheumatic aortic (valve) stenosis; I48.0 Paroxysmal atrial fibrillation; I70.0 Atherosclerosis of aorta; C50.921 Malignant neoplasm of unspecified site of right male breast; D63.1 Anemia in chronic kidney disease; E11.22 Type 2 diabetes mellitus with diabetic chronic kidney disease; E11.42 Type 2 diabetes mellitus with diabetic polyneuropathy; E66.9 Obesity, unspecified; Z68.30 Body mass index [BMI] 30.0-30.9, adult; E78.5 Hyperlipidemia, unspecified; F32.A Depression, unspecified; I25.10 Atherosclerotic heart disease of native coronary artery without angina pectoris; K59.00 Constipation, unspecified; M1A.9XX0 Chronic gout, unspecified, without tophus (tophi); R53.1 Weakness; E61.1 Iron deficiency; M89.8X9 Other specified disorders of bone, unspecified site; N40.0 Benign prostatic hyperplasia without lower urinary tract symptoms; M19.90 Unspecified osteoarthritis, unspecified site; G47.30 Sleep apnea, unspecified; H54.61 Unqualified visual loss, right eye, normal vision left eye; Z95.1 Presence of aortocoronary bypass graft; Z95.5 Presence of coronary angioplasty implant and graft; Z92.21 Personal history of antineoplastic chemotherapy; Z86.718 Personal history of other venous thrombosis and embolism; I25.2 Old myocardial infarction; Z99.3 Dependence on wheelchair; Z95.828 Presence of other vascular implants and grafts; Z79.899 Other long term (current) drug therapy; Z79.4 Long term (current) use of insulin; Z88.0 Allergy status to penicillin; Z86.011 Personal history of benign neoplasm of the brain; Z79.01 Long term (current) use of anticoagulants; Z86.010 Personal history of colon polyps; Z87.440 Personal history of urinary (tract) infections; Z87.81 Personal history of (healed) traumatic fracture
CPT/HCPCS: 36415; 38792; 71045; 78580; 80048; 80053; 82728; 83540; 83550; 83605; 83735; 83880; 84100; 84443; 84484; 85025; 85379; 85610; 85730; 87070; 87205; 88307; 93005; 94760; 99285

== ENCOUNTER 2022-07-31 15:56 | Inpatient (IN) | payer MEDICARE ==
[2022-07-31 17:13] LABS: Anisocytosis Slight; Basophils % (A) 1 %; Eosinophils % (A) 1 %; HCT 24.3 % (39.0-53.0); HGB 7.8 gm/dL (13.0-17.5); Hypochromasia Moderate; Lymphocytes # (A) 0.2 k/uL (1.0-4.8); Lymphocytes % (A) 6 %; MCH 31.8 pg (25.0-35.0); MCHC 32.2 g/dL (31.0-37.0); MCV 98.6 fL (80.0-100.0); Macrocytosis Slight; Mean Platelet Volume 8.5; Monocytes # (A) 0.3 k/uL (0-1.0); Monocytes % (A) 7 %; Neutrophils # (A) 2.9 k/uL (1.3-7.7); Neutrophils % (A) 84 %; Platelet Count 234 k/uL (150-450); RBC 2.46 m/uL (4.30-5.90); RDW 16.3 % (11.5-15.5); WBC 3.4 k/uL (3.8-10.6)
[2022-07-31 17:26] LABS: INR 1.1 (<1.2); Prothrombin Time 11.4 sec (9.0-12.0)
[2022-07-31 17:32] LABS: Albumin 3.8 g/dL (3.5-5.0); Calcium 10.4 mg/dL (8.4-10.2); Magnesium 2.5 mg/dL (1.6-2.3); Potassium 5.3 mmol/L (3.5-5.1); Total Bilirubin 0.3 mg/dL (0.2-1.3); Total Protein 5.7 g/dL (6.3-8.2)
[2022-07-31] MEDS ORDERED: ONDANSETRON 4 MG/2 ML VIAL IM STA (18:34)
--- NOTE | 2022-07-31 18:36 | ED ---
General Adult HPI - General Chief complaint: Shortness of Breath Stated complaint: JAYLEEN Time Seen by Provider: 07/31/22 16:06 Source: patient, family Mode of arrival: wheelchair - History of Present Illness Initial comments: This is a 72-year-old male with an extensive past medical history including hypertension, diabetes as well as end-stage renal disease and recent right stage IV breast cancer status post resection on July 21 presents emergency department for increasing tremors of breath. It was reported by the patient that he has had chronic kidney disease and is supposed to be on dialysis several months ago but has refused. The patient stated that he has increased returns of breath over the last 4 days and after speaking with his primary care physician encouraged him to come to the emergency department to be admitted for dialysis access placement and dialysis. The patient did state that he has had increasing shortness of breath last 4 days acutely but had had increasing soreness of breath gradually since the surgery. The patient stated that he does have to sleep with his head elevated and his hospital bed at home. - Related Data Home Medications Medication Instructions Recorded Confirmed Tamsulosin HCl [Flomax] 0.4 mg PO BID 06/19/15 07/16/22 amLODIPine [Norvasc] 5 mg PO DAILY 07/09/16 07/16/22 Ferrous Sulfate [Iron (65 MG 325 mg PO DAILY 03/21/21 07/16/22 Elemental)] Pravastatin Sodium [Pravachol] 40 mg PO HS 03/21/21 07/16/22 allopurinoL [Zyloprim] 100 mg PO DAILY 03/21/21 07/16/22 hydrALAZINE HCL [Apresoline] 75 mg PO BID 03/21/21 07/16/22 Cholecalciferol [Vitamin D3 (25 25 mcg PO DAILY 01/13/22 07/16/22 Mcg = 1000 Iu)] Amiodarone [Cordarone] 100 mg PO DAILY 02/07/22 07/16/22 Folic Acid 0.8 mg PO DAILY 02/07/22 07/16/22 Metoprolol Succinate (ER) [Toprol 25 mg PO DAILY 02/07/22 07/16/22 XL] Cholestyramine (with Sugar) 4 gm PO BID 06/03/22 07/16/22 [Questran Packet] Diphenoxylate HCl/Atropine 1 tab PO DAILY 06/03/22 07/16/22 [Lomotil 2.5-0.025 mg Tablet] Lidocaine-Prilocaine Cream [Emla 1 applic TOPICAL DAILY PRN 06/03/22 07/16/22 Cream 2.5%/2.5%] calcitrioL [Calcitriol] 0.25 mcg PO MO 06/03/22 07/16/22 Famotidine [Pepcid] 20 mg PO DAILY PRN 07/16/22 07/16/22 Previous Rx's Medication Instructions Recorded Apixaban [Eliquis] 2.5 mg PO BID #0 06/07/22 Docusate [Colace] 100 mg PO BID PRN cap 06/07/22 Insulin Glargine,Hum.rec.anlog 30 units SQ HS #0 06/07/22 [Lantus Solostar Pen] INSULIN ASPART (NovoLOG) [NovoLOG 0 unit SQ ACHS each 07/23/22 (formulary)] Torsemide [Demadex] 40 mg PO DAILY #30 tab 07/23/22 Allergies Allergy/AdvReac Type Severity Reaction Status Date / Time Penicillins Allergy Unknown Rash/Hives Verified 07/31/22 16:04 adhesive AdvReac skin tears Verified 07/31/22 16:04 Review of Systems ROS Statement: Those systems with pertinent positive or pertinent negative responses have been documented in the HPI. ROS Other: All systems not noted in ROS Statement are negative. Past Medical History Past Medical History: Atrial Fibrillation, Atrial Flutter, Coronary Artery Disease (CAD), Cancer, Diabetes Mellitus, Deep Vein Thrombosis (DVT), Eye Disorder, GERD/Reflux, Hyperlipidemia, Hypertension, Myocardial Infarction (PA), Neurologic Disorder, Osteoarthritis (OA), Prostate Disorder, Sleep Apnea/CPAP/BIPAP Additional Past Medical History / Comment(s): Current right breast cancer. HX OF POLYPS, BLOOD IN STOOL, uti's. Hx tailbone fracture, neuropathy to feet. Blind in right eye. Hx encephalopathy, meningioma with left sided weakness, cannot use left leg, wheelcahir bound. PT CAN'T HAVE ANY VACCINES THAT ARE LIVE VIRUSES. PLEASE USE PAPER TAPE ONLY(PT HAS THIN SKIN). uses slide board at home to transfer pt to w/c, with 2 person assist pt can stand/pivot to chair. Last Myocardial Infarction Date:: 02-11-2005 History of Any Multi-Drug Resistant Organisms: None Reported Past Surgical History: Adenoidectomy, Cardiac Ablation, Cholecystectomy, Coronary Bypass/CABG, Heart Catheterization With Stent, Orthopedic Surgery, Tonsillectomy Additional Past Surgical History / Comment(s): Triple bypass, Meningioma Removed from Brain 04/2013, peg tube- removed 9 years ago, DESTINEY FILTER, BILATERAL CATARACTS- LENS IMPLANTS, COLONOSCOPY/POLYPECTOMY, RIGHT KNEE ARTHROSCOPY. Past Anesthesia/Blood Transfusion Reactions: No Reported Reaction Date of Last Stent Placement:: 2004 Past Psychological History: Depression Smoking Status: Never smoker Past Alcohol Use History: None Reported Past Drug Use History: None Reported - Past Family History Father History Unknown: Yes Family Medical History: Congestive Heart Failure (CHF) Mother History Unknown: Yes Additional Family Medical History / Comment(s): STILL ALIVE AT AGE 90 IN [facility] General Exam Limitations: no limitations General appearance: alert, in no apparent distress Head exam: Present: atraumatic, normocephalic Eye exam: Present: normal appearance, PERRL, EOMI Pupils: Present: normal accommodation ENT exam: Present: normal exam, normal oropharynx, mucous membranes moist Neck exam: Present: normal inspection, full ROM Respiratory exam: Present: normal lung sounds bilaterally, other (Tachypneic with no wheezing or rhonchi heard) Cardiovascular Exam: Present: irregular rhythm, normal heart sounds GI/Abdominal exam: Present: soft, other (Moderate tenderness to palpation to the right upper and right lower quadrants) Extremities exam: Present: normal inspection, full ROM Back exam: Present: normal inspection, full ROM Neurological exam: Present: alert, oriented X3, CN II-XII intact Psychiatric exam: Present: normal affect, normal mood Skin exam: Present: warm, dry, intact, other (Surgical scar noted along the right breast that was clear, dry and intact without any signs of erythema or induration) Course Vital Signs 07/31/22 07/31/22 07/31/22 15:59 16:44 17:16 Temperature 97 F L Pulse Rate 79 77 Respiratory 24 16 24 Rate Blood Pressure 106/51 121/63 O2 Sat by Pulse 97 91 L Oximetry 07/31/22 18:14 Temperature Pulse Rate 76 Respiratory 20 Rate Blood Pressure 121/63 O2 Sat by Pulse 95 Oximetry EKG Findings - EKG Comments: EKG Findings:: An EKG was obtained and read by myself. EKG shows rate of 76, QRS duration 103 and QTC of 436. The EKG does show a sinus rhythm however there were no P waves evident. The patient did have a regular rhythm but due to the absence of P waves likely had a fibrillation. The patient did have a history of atrial fibrillation. There were no ST segment elevations or depressions noted. There is no previous EKG to compare at this time. Medical Decision Making - Medical Decision Making The patient was seen and evaluated the emergency department. On physical exam, the patient was tachypneic after getting out of the wheelchair but was able to rest comfortably in bed without any tachypnea once he is calm. Vital signs at admission did show auction saturation within normal limits on room air. The patient was not tachypneic or tachycardic. The patient did have a history of atrial fibrillation. The patient was on a blood thinner currently. Due to the nature the patient's complaints and concerns, limits her workup was obtained. Initially a CT of the chest was obtained to rule out a PE. Laboratory workup did show creatinine that was significant elevated at 4.3 and a GFR of 11. Due to these findings, a CTA of the chest was discontinued secondary to the patient's poor renal function. A VQ scan was ordered to rule out a PE. CT of the abdomen and pelvis without contrast was ordered as the patient did have generalized abdominal pain more focused in the right upper and right lower quadrants. The patient had continued intermittent shortness of breath but his proBNP was 966 and troponin was negative. 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 Jon was contacted regarding admission. He did recommend continued IV Lasix twice a day. He also did state that the patient has had consistent tachypnea and shortness of breath but if the patient's family was told that they would pursue dialysis that he will accept admission for continued evaluation of the possible dialysis catheter placement as well as the VQ scan and that will be performed tomorrow. The patient's family was told this plan and was agreeable. The patient was admitted in stable condition. - Lab Data Result diagrams: 07/31/22 17:02 07/31/22 17:02 Lab Results 07/31/22 07/31/2222 Range/Units 17:02 17:02 17:02 WBC 3.4 L (3.8-10.6) k/uL RBC 2.46 L (4.30-5.90) m/uL Hgb 7.8 L (13.0-17.5) gm/dL Hct 24.3 L (39.0-53.0) % MCV 98.6 (80.0-100.0) fL MCH 31.8 (25.0-35.0) pg MCHC 32.2 (31.0-37.0) g/dL RDW 16.3 H (11.5-15.5) % Plt Count 234 (150-450) k/uL MPV 8.5 Neutrophils % 84 % Lymphocytes % 6 % Monocytes % 7 % Eosinophils % 1 % Basophils % 1 % Neutrophils # 2.9 (1.3-7.7) k/uL Lymphocytes # 0.2 L (1.0-4.8) k/uL Monocytes # 0.3 (0-1.0) k/uL Eosinophils # 0.0 (0-0.7) k/uL Basophils # 0.0 (0-0.2) k/uL Hypochromasia Moderate Anisocytosis Slight Macrocytosis Slight PT 11.4 (9.0-12.0) sec INR 1.1 (<1.2) APTT 26.0 (22.0-30.0) sec Sodium 137 (137-145) mmol/L Potassium 5.3 H (3.5-5.1) mmol/L Chloride 107 (98-107) mmol/L Carbon Dioxide 17 L (22-30) mmol/L Anion Gap 13 mmol/L BUN 89 H (9-20) mg/dL Creatinine 4.87 H (0.66-1.25) mg/dL Est GFR (CKD-EPI)AfAm 13 (>60 ml/min/1.73 sqM) Est GFR (CKD-EPI)NonAf 11 (>60 ml/min/1.73 sqM) Glucose 156 H (74-99) mg/dL Calcium 10.4 H (8.4-10.2) mg/dL Magnesium 2.5 H (1.6-2.3) mg/dL Total Bilirubin 0.3 (0.2-1.3) mg/dL AST 22 (17-59) U/L ALT 18 (4-49) U/L Alkaline Phosphatase 74 (38-126) U/L Troponin I (0.000-0.034) ng/mL NT-Pro-B Natriuret Pep pg/mL Total Protein 5.7 L (6.3-8.2) g/dL Albumin 3.8 (3.5-5.0) g/dL Coronavirus (PCR) (Not Detectd) 07/31/22 07/31/22 07/31/22 Range/Units 17:02 17:02 17:02 WBC (3.8-10.6) k/uL RBC (4.30-5.90) m/uL Hgb (13.0-17.5) gm/dL Hct (39.0-53.0) % MCV (80.0-100.0) fL MCH (25.0-35.0) pg MCHC (31.0-37.0) g/dL RDW (11.5-15.5) % Plt Count (150-450) k/uL MPV Neutrophils % % Lymphocytes % % Monocytes % % Eosinophils % % Basophils % % Neutrophils # (1.3-7.7) k/uL Lymphocytes # (1.0-4.8) k/uL Monocytes # (0-1.0) k/uL Eosinophils # (0-0.7) k/uL Basophils # (0-0.2) k/uL Hypochromasia Anisocytosis Macrocytosis PT (9.0-12.0) sec INR (<1.2) APTT (22.0-30.0) sec Sodium (137-145) mmol/L Potassium (3.5-5.1) mmol/L Chloride (98-107) mmol/L Carbon Dioxide (22-30) mmol/L Anion Gap mmol/L BUN (9-20) mg/dL Creatinine (0.66-1.25) mg/dL Est GFR (CKD-EPI)AfAm (>60 ml/min/1.73 sqM) Est GFR (CKD-EPI)NonAf (>60 ml/min/1.73 sqM) Glucose (74-99) mg/dL Calcium (8.4-10.2) mg/dL Magnesium (1.6-2.3) mg/dL Total Bilirubin (0.2-1.3) mg/dL AST (17-59) U/L ALT (4-49) U/L Alkaline Phosphatase (38-126) U/L Troponin I <0.012 (0.000-0.034) ng/mL NT-Pro-B Natriuret Pep 966 pg/mL Total Protein (6.3-8.2) g/dL Albumin (3.5-5.0) g/dL Coronavirus (PCR) Not Detected (Not Detectd) Critical Care Time Critical Care Time: Yes Total Critical Care Time: 36 Disposition Clinical Impression: Shortness of breath, CKD (chronic kidney disease), Heart failure, Paroxysmal a- fib Disposition: ADMITTED IP TO THIS [facility] Condition: Stable Is patient prescribed a controlled substance at d/c from ED?: No Referrals: Pablo Jon MD [Primary Care Provider] - 1-2 days Time of Disposition: 18:45 Decision Date: 07/31/22 Decision Time: 18:45
[2022-07-31] MEDS ORDERED: NALOXONE 0.4 MG/ML 1 ML VIAL IV PRN (18:49)
--- NOTE | 2022-07-31 19:33 | XR ---
EXAMINATION TYPE: XR chest 2V DATE OF EXAM: 07/31/2022 COMPARISON: Chest x-ray 15 days ago HISTORY: Shortness of breath. Recent right-sided mastectomy. TECHNIQUE: Frontal and lateral views of the chest are obtained. FINDINGS: Stable right internal jugular Mediport catheter. Overlying sternal wires and mediastinal c lips redemonstrated. Persistent cardiomegaly with small moderate sized right greater than left pleura l effusions and moderate central vascular congestion. Osseous structures are intact. IMPRESSION: Correlate for CHF exacerbation and/or fluid overload state. Findings similar or likely s lightly more prominent from most recent x-ray.
--- NOTE | 2022-07-31 19:40 | CT ---
EXAMINATION TYPE: CT abdomen pelvis wo con DATE OF EXAM: 07/31/2022 HISTORY: abdominal pain. hx of R breast ca CT DLP: Total 3395.8 mGycm. Automated Exposure Control for Dose Reduction was Utilized. TECHNIQUE: CT scan of the abdomen and pelvis is performed without oral or IV contrast. COMPARISON: PET CT February 21, 2022. CT abdomen and pelvis 2019 FINDINGS: Within the limitations of a non-contrast study, the following observations are made. LUNG BASES: Small sized bilateral pleural effusions with associated compressive atelectasis are now p resent. Post-CABG changes are partially imaged. Calcification at level of the mitral and aortic valve . Mild cardiomegaly. Enlarged main pulmonary artery suggesting underlying pulmonary artery hypertensi on. Left-sided gynecomastia is redemonstrated. Surgical change to the right breast with percutaneous drainage catheter is partially imaged. LIVER/GB: Cholecystectomy clips are redemonstrated. Trace ascites right inferior aspect. PANCREAS: No significant abnormality is seen. SPLEEN: Small amount of ascites along the lateral aspect of the spleen current study. ADRENALS: No significant abnormality is seen. KIDNEYS: Decreased size and cortical thinning to both kidneys redemonstrated. BOWEL: No suspicious small or large bowel dilatation. Some Diverticula in the left and sigmoid colon. GENITAL ORGANS: Enlarged prostate consistent with BPH redemonstrated. LYMPH NODES: No greater than 1cm abdominal or pelvic lymph nodes are appreciated. OSSEOUS STRUCTURES: No significant abnormality is seen. OTHER: Small amount of free fluid in the left paracolic gutter. Mild to moderate diffuse subcutaneous edema. Severe calcified plaque of the aorta extends into smaller branch vessels. Heterogeneous fat s tranding along the anterior abdominal wall could reflect surgical scarring was present on prior study but now seen also in the left anterior abdominal wall. . IMPRESSION: Small bilateral pleural effusions more prominent from prior. Small amount of intra-abdomi nal ascites noted greatest left paracolic and infracolic gutter. Mild to moderate diffuse soft tissue anasarca. Distal colonic diverticulosis. No CT evidence of acute diverticulitis. No bowel obstructio n. No acute findings are evident.
[2022-07-31] MEDS: FUROSEMIDE 10 MG/ML 10 ML VIAL IV SCH (19:41)
[2022-07-31 20:42] LABS: Appearance,Urine Clear (Clear); Bacteria,Urine Rare /hpf; Bilirubin,Urine Negative (Negative); Blood,Urine Negative (Negative); Color,Urine Light Yellow; Glucose,Urine (UA) 2+ (Negative); Ketones,Urine Trace (Negative); Leukocyte Esterase,Urine Negative (Negative); Mucus,Urine Rare /hpf; Nitrite,Urine Negative (Negative); Protein,Urine 1+ (Negative); RBC,Urine 1 /hpf (0-5); Specific Gravity,Urine 1.013 (1.001-1.035); Squamous Epithelial Cell,Urine <1 /hpf (0-4); Urobilinogen,Urine <2.0 mg/dL (<2.0); WBC,Urine <1 /hpf (0-5)
[2022-08-01] MEDS: ACETAMINOPHEN TAB 325 MG TAB PO PRN ×3 (00:38→21:42)
[2022-08-01 05:44] LABS: Glucose,Whole Blood 144 mg/dL (70-110)
--- NOTE | 2022-08-01 08:45 | NM ---
EXAMINATION TYPE: NM pul perfusion DATE OF EXAM: 08/01/2022 COMPARISON: NONE HISTORY: Shortness of breath Following administration of 5.0 mCi Tc 99m MAA. Images obtained post injection. FINDINGS: Homogeneous distribution radiotracer throughout both lung miller on this perfusion only study. IMPRESSION: No perfusion defects seen. Very low probability for pulmonary embolism.
[2022-08-01] MEDS ORDERED: DOCUSATE 100 MG CAP PO PRN (08:57)
[2022-08-01] MEDS ORDERED: INSULIN ASPART (NovoLOG) 100 UNIT/ML VIAL SQ PRN (08:57)
[2022-08-01] MEDS ORDERED: FAMOTIDINE 20 MG TAB PO PRN (08:57)
[2022-08-01] MEDS ORDERED: APIXABAN 2.5 MG TABLET PO SCH (09:00)
[2022-08-01] MEDS: amLODIPine 5 MG TAB PO SCH (09:25)
[2022-08-01] MEDS: TAMSULOSIN 0.4 MG CAP.ER.24H PO SCH ×2 (09:25→21:41)
[2022-08-01] MEDS: hydrALAZINE HCL 25 MG TAB PO SCH ×2 (09:25→21:41)
[2022-08-01] MEDS: FOLIC ACID 1 MG TAB PO SCH (09:25)
[2022-08-01] MEDS: METOPROLOL SUCCINATE (ER) 25 MG TAB.ER.24H PO SCH (09:26)
[2022-08-01] MEDS: FERROUS SULFATE 325 MG TAB PO SCH (09:26)
[2022-08-01] MEDS: allopurinoL 100 MG TAB PO SCH (09:26)
[2022-08-01] MEDS: FUROSEMIDE 10 MG/ML 10 ML VIAL IV SCH ×2 (09:26→21:44)
[2022-08-01] MEDS: CHOLESTYRAMINE (WITH SUGAR) 4 GM PACKET PO SCH ×2 (09:26→21:21)
[2022-08-01] MEDS: CHOLECALCIFEROL 25 MCG (1000 IU) TABLET PO SCH (09:26)
[2022-08-01] MEDS: AMIODARONE 100 MG TAB PO SCH (09:35)
--- NOTE | 2022-08-01 11:17 | P.NPCON ---
History of Present Illness - Reason for Consult chronic renal failure - History of Present Illness Patient is a 72-year-old male with a history of hypertension, type 2 diabetes, coronary artery disease status post coronary artery bypass surgery, chronic kidney disease NKF stage 4-5 secondary to nephrosclerosis with baseline creatinine around 4 mg/dL. Patient also has a history of breast cancer and is maintained on chemotherapy. Patient has had several admissions for fluid overload and was supposed to start hemodialysis last admission however he was reluctant and preferred to wait. Patient was seen in the office yesterday and was significantly short of breath and not able to complete his sentences. He was therefore advised admission to the hospital and to start hemodialysis as inpatient. Patient is in agreement. Patient received his morning dose of eliquis and therefore the catheter will be placed on Thursday Shortness of breath has improved. Patient is currently comfortable. He is main tained on IV Lasix and has had good urine output. O2 sats 97% on 2 L nasal cannula. Review of Systems As per HPI Past Medical History Past Medical History: Atrial Fibrillation, Atrial Flutter, Coronary Artery Disease (CAD), Cancer, Diabetes Mellitus, Deep Vein Thrombosis (DVT), Eye Disorder, GERD/Reflux, Hyperlipidemia, Hypertension, Myocardial Infarction ([place]), Neurologic Disorder, Osteoarthritis (OA), Prostate Disorder, Sleep Apnea/CPAP/BIPAP Additional Past Medical History / Comment(s): Current right breast cancer. HX OF POLYPS, BLOOD IN STOOL, uti's. Hx tailbone fracture, neuropathy to feet. Blind in right eye. Hx encephalopathy, meningioma with left sided weakness, cannot use left leg, wheelcahir bound. PT CAN'T HAVE ANY VACCINES THAT ARE LIVE VIRUSES. PLEASE USE PAPER TAPE ONLY(PT HAS THIN SKIN). uses slide board at home to transfer pt to w/c, with 2 person assist pt can stand/pivot to chair. Last Myocardial Infarction Date:: 02-11-2005 History of Any Multi-Drug Resistant Organisms: None Reported Past Surgical History: Adenoidectomy, Breast Surgery, Cardiac Ablation, Cholecystectomy, Coronary Bypass/CABG, Heart Catheterization With Stent, Orthopedic Surgery, Tonsillectomy Additional Past Surgical History / Comment(s): Triple bypass, Meningioma Removed from Brain 04/2013, peg tube- removed 9 years ago, DESTINEY FILTER, BILATERAL CATARACTS- LENS IMPLANTS, COLONOSCOPY/POLYPECTOMY, RIGHT KNEE ARTHROSCOPY, 07/21/22 right breast mastectomy Past Anesthesia/Blood Transfusion Reactions: No Reported Reaction Date of Last Stent Placement:: 2004 Past Psychological History: Depression Additional Psychological History / Comment(s): PT UNABLE TO AMBULATE BUT ABLE TO STAND WITH ASSIST OF 2 /PIVOT TO W/C OR MOTORIZED CHAIR. 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 Smoking Status: Never smoker Past Alcohol Use History: None Reported Past Drug Use History: None Reported - Past Family History Father History Unknown: Yes Family Medical History: Congestive Heart Failure (CHF) Mother History Unknown: Yes Additional Family Medical History / Comment(s): STILL ALIVE AT AGE 90 IN [facility] Medications and Allergies Home Medications Medication Instructions Recorded Confirmed Type Tamsulosin HCl [Flomax] 0.4 mg PO BID 06/19/15 07/31/22 History amLODIPine [Norvasc] 5 mg PO DAILY 07/09/16 07/31/22 History Ferrous Sulfate [Iron (65 MG 325 mg PO DAILY 03/21/21 07/31/22 History Elemental)] Pravastatin Sodium [Pravachol] 40 mg PO HS 03/21/21 07/31/22 History allopurinoL [Zyloprim] 100 mg PO DAILY 03/21/21 07/31/22 History hydrALAZINE HCL [Apresoline] 75 mg PO BID 03/21/21 07/31/22 History Cholecalciferol [Vitamin D3 (25 25 mcg PO DAILY 01/13/22 07/31/22 History Mcg = 1000 Iu)] Amiodarone [Cordarone] 100 mg PO DAILY 02/07/22 07/31/22 History Folic Acid 0.8 mg PO DAILY 02/07/22 07/31/22 History Metoprolol Succinate (ER) [Toprol 25 mg PO DAILY 02/07/22 07/31/22 History XL] Cholestyramine (with Sugar) 4 gm PO BID 06/03/22 07/31/22 History [Questran Packet] Diphenoxylate HCl/Atropine 1 tab PO DAILY 06/03/22 07/31/22 History [Lomotil 2.5-0.025 mg Tablet] Lidocaine-Prilocaine Cream [Emla 1 applic TOPICAL DAILY PRN 06/03/22 07/31/22 History Cream 2.5%/2.5%] calcitrioL [Calcitriol] 0.25 mcg PO MO 06/03/22 07/31/22 History Apixaban [Eliquis] 2.5 mg PO BID #0 06/07/22 07/31/22 Rx Docusate [Colace] 100 mg PO BID PRN cap 06/07/22 07/31/22 Rx Insulin Glargine,Hum.rec.anlog 30 units SQ HS #0 06/07/22 07/31/22 Rx [Lantus Solostar Pen] Famotidine [Pepcid] 20 mg PO DAILY PRN 07/16/22 07/31/22 History Torsemide [Demadex] 40 mg PO DAILY #30 tab 07/23/22 07/31/22 Rx INSULIN ASPART (NovoLOG) [NovoLOG See Protocol SQ ACHS PRN 07/31/22 07/31/22 History (formulary)] Allergies Allergy/AdvReac Type Severity Reaction Status Date / Time Penicillins Allergy Unknown Rash/Hives Verified 07/31/22 19:23 adhesive AdvReac skin tears Verified 07/31/22 19:23 Physical Exam Vitals: Vital Signs Temp Pulse Pulse Resp BP BP Pulse Ox 08/01/22 09:25 97.4 F L 70 16 149/63 97 08/01/22 04:00 70 18 115/68 95 08/01/22 01:38 76 18 08/01/22 00:00 97.0 F L 76 18 98 07/31/22 22:14 78 18 130/73 93 L 07/31/22 20:24 68 16 130/68 96 07/31/22 19:44 77 16 121/63 94 L 07/31/22 18:14 76 20 121/63 95 07/31/22 17:16 24 07/31/22 16:44 77 16 121/63 91 L 07/31/22 15:59 97 F L 79 24 106/51 97 Intake and Output 07/31/22 08/01/22 08/01/22 22:59 06:59 14:59 Output Total 650 Balance -650 Output: Urine 650 Other: Voiding Method Urinal Urinal # Voids 1 Weight 99.79 kg Awake, comfortable, in no acute distress Examination of the heart S1 and S2 Examination of the lungs bilateral breath sounds are heard with decreased breath sounds at the bases and basal crackles Examination of the lower extremities shows edema 2+ bilaterally Abdomen is soft nontender Results - Lab Results Most recent lab results Calcium 10.4 mg/dL (8.4-10.2) H 07/31/22 17:02 Magnesium 2.5 mg/dL (1.6-2.3) H 07/31/22 17:02 07/31/22 17:02 07/31/22 17:02 Assessment and Plan Assessment: 1. CK D NKF stage V secondary to nephrosclerosis with multiple admissions for fluid overload. Patient will be starting hemodialysis this admission. Vascular surgery has been consulted and patient will have his IJ catheter placed on Thursday as he did get his morning dose of eliquis. 2. Mild hyperkalemia associated with CK D 3. Metabolic acidosis associated with chronic kidney disease 4. Anemia of chronic disease 5. Volume overload currently maintained on IV Lasix. Expect further improvement with hemodialysis 6. CK D mineral bone disorder maintained on Rocaltrol. Calcium was high at 10.4 we will hold the calcitriol 7. Breast cancer on chemotherapy Plan: Continue with IV Lasix Hemodialysis once IJ permacath is placed. Repeat labs in a.m. Hold calcitriol as calcium was elevated Thank you for this consultation. We will continue to follow the patient with you during his hospitalization
[2022-08-01 11:43] LABS: Glucose,Whole Blood 151 mg/dL (70-110)
--- NOTE | 2022-08-01 14:34 | P.CNPUL ---
History of Present Illness Consult date: 08/01/22 Requesting physician: Pablo Jon Reason for consult: dyspnea Chief complaint: Shortness of breath History of present illness: This is a very pleasant 72-year-old male patient with a known history of hypertension, hyperlipidemia, myocardial infarction, obstructive sleep apnea, coronary artery disease with previous coronary artery bypass grafting and stent placement, atrial fibrillation/flutter, DVT, GERD, chronic kidney disease stage IV. He also was found to have right-sided breast cancer and had undergone a right mastectomy earlier this month and initiated on chemotherapy. He had also been treated for acute diastolic congestive heart failure with a right pleural effusion. He had been offered hemodialysis a month or 2 ago but had declined. He presented here to the emergency room yesterday with worsening shortness of breath 4 days prior to his arrival. He did decide to go ahead with dialysis catheter placement that is to be done on 08/03/2022 2 being on Eliquis. Chest x-ray does show persistent cardiomegaly and with small to moderate right side greater than left pleural effusions and moderate central vascular congestion. Stable right internal jugular Mediport catheter in place. Ventilation perfusion scan revealed very low probability for pulmonary embolism. White count 3.4. Hemoglobin 7.8. INR 1.1. Sodium 137. Potassium 5.3. Bicarb 17. BUN 89. Creatinine 4.87. Glucose 156. Hunt virus by PCR not detected. He is seen today in consultation on the regular medical floor. He is currently resting flat in bed. Awake and alert in no acute distress. Maintaining good O2 saturations in the 90s on 2 L/m per nasal cannula. He's been initiated on Lasix 80 mg IV every 12 hours. Eliquis remains on hold. Review of Systems REVIEW OF SYSTEMS: CONSTITUTIONAL: Denies any recent significant weight loss or weight gain. EYES: Denies change in vision. EARS, NOSE, MOUTH, THROAT: Denies headaches, denies sore throat. CARDIOVASCULAR: Denies chest pain, palpitations or syncopal episodes. RESPIRATORY: Positive for shortness of breath, no cough, congestion or hemoptysis. GASTROINTESTINAL: Denies change in appetite, denies abdominal pain GENITOURINARY: Denies hematuria, denies infections. MUSKULOSKELETAL: Positive for lower extremity swelling. INTEGUMENTARY: Denies rash, denies eczema. NEUROLOGICAL: Denies recent memory loss, no recent seizure activity. PSYCHIATRIC: Denies anxiety, denies depression. HEMATOLOGIC/LYMPHATIC: Denies anemia, denies enlarged lymph nodes. Past Medical History Past Medical History: Atrial Fibrillation, Atrial Flutter, Coronary Artery Disease (CAD), Cancer, Diabetes Mellitus, Deep Vein Thrombosis (DVT), Eye Disorder, GERD/Reflux, Hyperlipidemia, Hypertension, Myocardial Infarction ([place]), Neurologic Disorder, Osteoarthritis (OA), Prostate Disorder, Sleep Apnea /CPAP/BIPAP Additional Past Medical History / Comment(s): Current right breast cancer. HX OF POLYPS, BLOOD IN STOOL, uti's. Hx tailbone fracture, neuropathy to feet. Blind in right eye. Hx encephalopathy, meningioma with left sided weakness, cannot use left leg, wheelcahir bound. PT CAN'T HAVE ANY VACCINES THAT ARE LIVE VIRUSES. PLEASE USE PAPER TAPE ONLY(PT HAS THIN SKIN). uses slide board at home to transfer pt to w/c, with 2 person assist pt can stand/pivot to chair. Last Myocardial Infarction Date:: 02-11-2005 History of Any Multi-Drug Resistant Organisms: None Reported Past Surgical History: Adenoidectomy, Breast Surgery, Cardiac Ablation, Cholecystectomy, Coronary Bypass/CABG, Heart Catheterization With Stent, Orthopedic Surgery, Tonsillectomy Additional Past Surgical History / Comment(s): Triple bypass, Meningioma Removed from Brain 04/2013, peg tube- removed 9 years ago, DESTINEY FILTER, BILATERAL CATARACTS- LENS IMPLANTS, COLONOSCOPY/POLYPECTOMY, RIGHT KNEE ARTHROSCOPY, 07/21/22 right breast mastectomy Past Anesthesia/Blood Transfusion Reactions: No Reported Reaction Date of Last Stent Placement:: 2004 Past Psychological History: Depression Additional Psychological History / Comment(s): PT UNABLE TO AMBULATE BUT ABLE TO STAND WITH ASSIST OF 2 /PIVOT TO W/C OR MOTORIZED CHAIR. 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 Smoking Status: Never smoker Past Alcohol Use History: None Reported Past Drug Use History: None Reported - Past Family History Father History Unknown: Yes Family Medical History: Congestive Heart Failure (CHF) Mother History Unknown: Yes Additional Family Medical History / Comment(s): STILL ALIVE AT AGE 90 IN [facility] Medications and Allergies Home Medications Medication Instructions Recorded Confirmed Type Tamsulosin HCl [Flomax] 0.4 mg PO BID 06/19/15 07/31/22 History amLODIPine [Norvasc] 5 mg PO DAILY 07/09/16 07/31/22 History Ferrous Sulfate [Iron (65 MG 325 mg PO DAILY 03/21/21 07/31/22 History Elemental)] Pravastatin Sodium [Pravachol] 40 mg PO HS 03/21/21 07/31/22 History allopurinoL [Zyloprim] 100 mg PO DAILY 03/21/21 07/31/22 History hydrALAZINE HCL [Apresoline] 75 mg PO BID 03/21/21 07/31/22 History Cholecalciferol [Vitamin D3 (25 25 mcg PO DAILY 01/13/22 07/31/22 History Mcg = 1000 Iu)] Amiodarone [Cordarone] 100 mg PO DAILY 02/07/22 07/31/22 History Folic Acid 0.8 mg PO DAILY 02/07/22 07/31/22 History Metoprolol Succinate (ER) [Toprol 25 mg PO DAILY 02/07/22 07/31/22 History XL] Cholestyramine (with Sugar) 4 gm PO BID 06/03/22 07/31/22 History [Questran Packet] Diphenoxylate HCl/Atropine 1 tab PO DAILY 06/03/22 07/31/22 History [Lomotil 2.5-0.025 mg Tablet] Lidocaine-Prilocaine Cream [Emla 1 applic TOPICAL DAILY PRN 06/03/22 07/31/22 History Cream 2.5%/2.5%] calcitrioL [Calcitriol] 0.25 mcg PO MO 06/03/22 07/31/22 History Apixaban [Eliquis] 2.5 mg PO BID #0 06/07/22 07/31/22 Rx Docusate [Colace] 100 mg PO BID PRN cap 06/07/22 07/31/22 Rx Insulin Glargine,Hum.rec.anlog 30 units SQ HS #0 06/07/22 07/31/22 Rx [Lantus Solostar Pen] Famotidine [Pepcid] 20 mg PO DAILY PRN 07/16/22 07/31/22 History Torsemide [Demadex] 40 mg PO DAILY #30 tab 07/23/22 07/31/22 Rx INSULIN ASPART (NovoLOG) [NovoLOG See Protocol SQ ACHS PRN 07/31/22 07/31/22 History (formulary)] Allergies Allergy/AdvReac Type Severity Reaction Status Date / Time Penicillins Allergy Unknown Rash/Hives Verified 07/31/22 19:23 adhesive AdvReac skin tears Verified 07/31/22 19:23 Physical Exam Vitals: Vital Signs Temp Pulse Pulse Resp BP BP Pulse Ox 08/01/22 11:05 66 18 116/67 96 08/01/22 09:25 97.4 F L 70 16 149/63 97 08/01/22 04:00 70 18 115/68 95 08/01/22 01:38 76 18 08/01/22 00:00 97.0 F L 76 18 98 07/31/22 22:14 78 18 130/73 93 L 07/31/22 20:24 68 16 130/68 96 07/31/22 19:44 77 16 121/63 94 L 07/31/22 18:14 76 20 121/63 95 07/31/22 17:16 24 07/31/22 16:44 77 16 121/63 91 L 07/31/22 15:59 97 F L 79 24 106/51 97 Intake and Output 07/31/22 08/01/22 08/01/22 22:59 06:59 14:59 Output Total 650 Balance -650 Output: Urine 650 Other: Voiding Method Urinal Urinal # Voids 1 Weight 99.79 kg GENERAL EXAM: Alert, very pleasant 72-year-old male, on 2 L nasal cannula, comfortable in no apparent distress. HEAD: Normocephalic. EYES: Normal reaction of pupils, equal size. NOSE: Clear with pink turbinates. THROAT: No erythema or exudates. NECK: No masses, no JVD. CHEST: No chest wall deformity. Right subclavian Mediport catheter in place. LUNGS: Equal air entry with bilateral crackles right greater than left, diminished CVS: S1 and S2 normal with no audible murmur, regular rhythm. ABDOMEN: Slightly distended. No hepatosplenomegaly, normal bowel sounds, no guarding or rigidity. SPINE: No scoliosis or deformity SKIN: No rashes CENTRAL NERVOUS SYSTEM: No focal deficits, tone is normal in all 4 extremities. EXTREMITIES: There is 1+ peripheral edema. Changes of chronic venous stasis. No clubbing, no cyanosis. Peripheral pulses are intact. Results - Laboratory Findings CBC and BMP: 07/31/22 17:02 07/31/22 17:02 PT/INR, D-dimer PT 11.4 sec (9.0-12.0) 07/31/22 17:02 INR 1.1 (<1.2) 07/31/22 17:02 Abnormal lab findings: Abnormal Labs 07/31/22 07/31/22 07/31/22 17:02 17:02 20:20 WBC 3.4 L RBC 2.46 L Hgb 7.8 L Hct 24.3 L RDW 16.3 H Lymphocytes # 0.2 L Potassium 5.3 H Carbon Dioxide 17 L BUN 89 H Creatinine 4.87 H Glucose 156 H POC Glucose (mg/dL) Calcium 10.4 H Magnesium 2.5 H Total Protein 5.7 L Urine Protein 1+ H Urine Glucose (UA) 2+ H Urine Ketones Trace H Urine Bacteria Rare H Urine Mucus Rare H 08/01/22 08/01/22 05:42 11:37 WBC RBC Hgb Hct RDW Lymphocytes # Potassium Carbon Dioxide BUN Creatinine Glucose POC Glucose (mg/dL) 144 H 151 H Calcium Magnesium Total Protein Urine Protein Urine Glucose (UA) Urine Ketones Urine Bacteria Urine Mucus - Diagnostic Findings Chest x-ray: image reviewed Assessment and Plan Assessment: Acute hypoxemic respiratory failure secondary to fluid volume overload from diastolic congestive heart failure Chronic kidney disease stage IV, now agreeable to hemodialysis and plans for permacath placement on 08/03/2022 History of atrial fibrillation, anticoagulated with Eliquis, currently on hold History of DVT, treated with Eliquis Right-sided breast cancer status post mastectomy on 07/21/2022, receiving chemotherapy Hypertension Diabetes mellitus Hyperlipidemia History of gout History of coronary artery disease with previous coronary bypass grafting as well as previous stent placement Benign prostatic hyperplasia Diabetic polyneuropathy History of meningioma with left-sided weakness History of anemia from chronic kidney disease Plan: The patient was seen and evaluated Chest x-ray, perfusion scan, labs and medications reviewed Continue diuretics Awaiting catheter placement to initiate hemodialysis Eliquis is on hold Titrate the FiO2 as tolerated We will continue to follow and make further recommendations based on his clinical status I have personally seen and examined the patient, performed the documentation and the assessment and plan as written. Number of minutes spent on the visit: 20.
[2022-08-01 16:38] LABS: Glucose,Whole Blood 162 mg/dL (70-110)
[2022-08-01] MEDS: INSULIN ASPART (NovoLOG) 100 UNIT/ML VIAL SQ SCH ×2 (17:07→21:41)
--- NOTE | 2022-08-01 18:05 | P.GSCN ---
History of Present Illness Consult date: 08/01/22 Reason for Consult: Right breast cancer History of present illness: 72-year-old male well known to our service. Patient underwent right mastectomy with sentinel lymph node biopsy on 07/21. Prior to that the patient was hospitalized with CHF and renal insufficiency. He was discharged home last week but returned to the hospital in the last 2 days with complaints of recurrent shortness of breath. Apparently this was gradually worsening at home. Denies any pain in the right chest wall incision site. LUISITO drain still putting out approximately 50 mL per day we are estimating. We were consulted given his recent surgery and the drain that is still in place. Review of Systems The patient denies any acute changes in vision or hearing, no dysphagia or odynophagia, no dysuria or hematuria, no headache, no runny nose, no rectal bleeding or melena, no unexplained weight loss Past Medical History Past Medical History: Atrial Fibrillation, Atrial Flutter, Coronary Artery Disease (CAD), Cancer, Diabetes Mellitus, Deep Vein Thrombosis (DVT), Eye Disorder, GERD/Reflux, Hyperlipidemia, Hypertension, Myocardial Infarction ([place]), Neurologic Disorder, Osteoarthritis (OA), Prostate Disorder, Sleep Apnea/CPAP/BIPAP Additional Past Medical History / Comment(s): Current right breast cancer. HX OF POLYPS, BLOOD IN STOOL, uti's. Hx tailbone fracture, neuropathy to feet. Blind in right eye. Hx encephalopathy, meningioma with left sided weakness, cannot use left leg, wheelcahir bound. PT CAN'T HAVE ANY VACCINES THAT ARE LIVE VIRUSES. PLEASE USE PAPER TAPE ONLY(PT HAS THIN SKIN). uses slide board at home to transfer pt to w/c, with 2 person assist pt can stand/pivot to chair. Last Myocardial Infarction Date:: 02-11-2005 History of Any Multi-Drug Resistant Organisms: None Reported Past Surgical History: Adenoidectomy, Breast Surgery, Cardiac Ablation, Cholecystectomy, Coronary Bypass/CABG, Heart Catheterization With Stent, Orthopedic Surgery, Tonsillectomy Additional Past Surgical History / Comment(s): Triple bypass, Meningioma Removed from Brain 04/2013, peg tube- removed 9 years ago, DESTINEY FILTER, BILATERAL CATARACTS- LENS IMPLANTS, COLONOSCOPY/POLYPECTOMY, RIGHT KNEE ARTHROSCOPY, 07/21/22 right breast mastectomy Past Anesthesia/Blood Transfusion Reactions: No Reported Reaction Date of Last Stent Placement:: 2004 Past Psychological History: Depression Additional Psychological History / Comment(s): PT UNABLE TO AMBULATE BUT ABLE TO STAND WITH ASSIST OF 2 /PIVOT TO W/C OR MOTORIZED CHAIR. 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 Smoking Status: Never smoker Past Alcohol Use History: None Reported Past Drug Use History: None Reported - Past Family History Father History Unknown: Yes Family Medical History: Congestive Heart Failure (CHF) Mother History Unknown: Yes Additional Family Medical History / Comment(s): STILL ALIVE AT AGE 90 IN [facility] Medications and Allergies Home Medications Medication Instructions Recorded Confirmed Type Tamsulosin HCl [Flomax] 0.4 mg PO BID 06/19/15 07/31/22 History amLODIPine [Norvasc] 5 mg PO DAILY 07/09/16 07/31/22 History Ferrous Sulfate [Iron (65 MG 325 mg PO DAILY 03/21/21 07/31/22 History Elemental)] Pravastatin Sodium [Pravachol] 40 mg PO HS 03/21/21 07/31/22 History allopurinoL [Zyloprim] 100 mg PO DAILY 03/21/21 07/31/22 History hydrALAZINE HCL [Apresoline] 75 mg PO BID 03/21/21 07/31/22 History Cholecalciferol [Vitamin D3 (25 25 mcg PO DAILY 01/13/22 07/31/22 History Mcg = 1000 Iu)] Amiodarone [Cordarone] 100 mg PO DAILY 02/07/22 07/31/22 History Folic Acid 0.8 mg PO DAILY 02/07/22 07/31/22 History Metoprolol Succinate (ER) [Toprol 25 mg PO DAILY 02/07/22 07/31/22 History XL] Cholestyramine (with Sugar) 4 gm PO BID 06/03/22 07/31/22 History [Questran Packet] Diphenoxylate HCl/Atropine 1 tab PO DAILY 06/03/22 07/31/22 History [Lomotil 2.5-0.025 mg Tablet] Lidocaine-Prilocaine Cream [Emla 1 applic TOPICAL DAILY PRN 06/03/22 07/31/22 Hi story Cream 2.5%/2.5%] calcitrioL [Calcitriol] 0.25 mcg PO MO 06/03/22 07/31/22 History Apixaban [Eliquis] 2.5 mg PO BID #0 06/07/22 07/31/22 Rx Docusate [Colace] 100 mg PO BID PRN cap 06/07/22 07/31/22 Rx Insulin Glargine,Hum.rec.anlog 30 units SQ HS #0 06/07/22 07/31/22 Rx [Lantus Solostar Pen] Famotidine [Pepcid] 20 mg PO DAILY PRN 07/16/22 07/31/22 History Torsemide [Demadex] 40 mg PO DAILY #30 tab 07/23/22 07/31/22 Rx INSULIN ASPART (NovoLOG) [NovoLOG See Protocol SQ ACHS PRN 07/31/22 07/31/22 History (formulary)] Allergies Allergy/AdvReac Type Severity Reaction Status Date / Time Penicillins Allergy Unknown Rash/Hives Verified 07/31/22 19:23 adhesive AdvReac skin tears Verified 07/31/22 19:23 Surgical - Exam Vital Signs Temp Pulse Resp BP Pulse Ox 97 F L 79 24 106/51 97 07/31/22 15:59 07/31/22 15:59 07/31/22 15:59 07/31/22 15:59 07/31/22 15:59 Physical exam: General: Well-developed, well-nourished HEENT: Normocephalic, sclerae nonicteric Abdomen: Nontender, nondistended Extremities: No edema Neuro: Alert and oriented Chest wall incision clean and dry, glue still in place, LUISITO drain serosanguineous, nontender Results - Labs 07/31/22 17:02 07/31/22 17:02 Abnormal Lab Results - Last 24 Hours (Table) 07/31/22 08/01/22 08/01/22 Range/Units 20:20 05:42 11:37 POC Glucose (mg/dL) 144 H 151 H (70-110) mg/dL Urine Protein 1+ H (Negative) Urine Glucose (UA) 2+ H (Negative) Urine Ketones Trace H (Negative) Urine Bacteria Rare H (None) /hpf Urine Mucus Rare H (None) /hpf 08/01/22 Range/Units 16:34 POC Glucose (mg/dL) 162 H (70-110) mg/dL Urine Protein (Negative) Urine Glucose (UA) (Negative) Urine Ketones (Negative) Urine Bacteria (None) /hpf Urine Mucus (None) /hpf Assessment and Plan Assessment: 72-year-old male with recent right mastectomy with sentinel lymph node biopsy. LUISITO drain still in place. Will monitor output closely. I agree with plans for dialysis. Pathology reviewed with the patient today. Patient will require outpatient oncology follow-up.
--- NOTE | 2022-08-01 18:06 | P.GSCN ---
History of Present Illness History of present illness: 72-year-old gentleman consulted for placement of dialysis catheter for acute chronic renal failure. Patient has history of see of the breast had a mastectomy and if wound on the right side patient also has a Port-A-Cath on the right side. Patient is on a liquids we will hold the liquids and place the dialysis catheter send a morning Medical history history of diabetes type 2, sleep apnea, Surgical history patient had a mastectomy on the right side, coronary artery bypass graft done in the past, patient has a Port-A-Cath on the right side, Neck examination neck is supple no bruit appreciated patient has a Port-A-Cath on the right side Chest few crackles the lung bases first and second sound present Abdomen soft nontender Femorals 1+ bilateral Graft plan is placement of a dialysis catheter left jugular approach because patient has a Port-A-Cath on the right side and by mouth midnight on Thursday we will place him in the morning dialysis catheter risk and complication discussed Past Medical History Past Medical History: Atrial Fibrillation, Atrial Flutter, Coronary Artery Disease (CAD), Cancer, Diabetes Mellitus, Deep Vein Thrombosis (DVT), Eye Disorder, GERD/Reflux, Hyperlipidemia, Hypertension, Myocardial Infarction (MO), Neurologic Disorder, Osteoarthritis (OA), Prostate Disorder, Sleep Apnea/CPAP/BIPAP Additional Past Medical History / Comment(s): Current right breast cancer. HX OF POLYPS, BLOOD IN STOOL, uti's. Hx tailbone fracture, neuropathy to feet. Blind in right eye. Hx encephalopathy, meningioma with left sided weakness, cannot use left leg, wheelcahir bound. PT CAN'T HAVE ANY VACCINES THAT ARE LIVE VIRUSES. PLEASE USE PAPER TAPE ONLY(PT HAS THIN SKIN). uses slide board at home to transfer pt to w/c, with 2 person assist pt can stand/pivot to chair. Last Myocardial Infarction Date:: 02-11-2005 History of Any Multi-Drug Resistant Organisms: None Reported Past Surgical History: Adenoidectomy, Breast Surgery, Cardiac Ablation, Cholecystectomy, Coronary Bypass/CABG, Heart Catheterization With Stent, Orthopedic Surgery, Tonsillectomy Additional Past Surgical History / Comment(s): Triple bypass, Meningioma Removed from Brain 04/2013, peg tube- removed 9 years ago, DESTINEY FILTER, BILATERAL CATARACTS- LENS IMPLANTS, COLONOSCOPY/POLYPECTOMY, RIGHT KNEE ARTHROSCOPY, right breast mastectomy Past Anesthesia/Blood Transfusion Reactions: No Reported Reaction Date of Last Stent Placement:: 2004 Past Psychological History: Depression Additional Psychological History / Comment(s): PT UNABLE TO AMBULATE BUT ABLE TO STAND WITH ASSIST OF 2 /PIVOT TO W/C OR MOTORIZED CHAIR. 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-SHE USES A SLIDE BOARD Smoking Status: Never smoker Past Alcohol Use History: None Reported Past Drug Use History: None Reported - Past Family History Father History Unknown: Yes Family Medical History: Congestive Heart Failure (CHF) Mother History Unknown: Yes Additional Family Medical History / Comment(s): STILL ALIVE AT AGE 90 IN [facility] Medications and Allergies Home Medications Medication Instructions Recorded Confirmed Type Tamsulosin HCl [Flomax] 0.4 mg PO BID 06/19/15 07/31/22 History amLODIPine [Norvasc] 5 mg PO DAILY 07/09/16 07/31/22 History Ferrous Sulfate [Iron (65 MG 325 mg PO DAILY 03/21/21 07/31/22 History Elemental)] Pravastatin Sodium [Pravachol] 40 mg PO HS 03/21/21 07/31/22 History allopurinoL [Zyloprim] 100 mg PO DAILY 03/21/21 07/31/22 History hydrALAZINE HCL [Apresoline] 75 mg PO BID 03/21/21 07/31/22 History Cholecalciferol [Vitamin D3 (25 25 mcg PO DAILY 01/13/22 07/31/22 History Mcg = 1000 Iu)] Amiodarone [Cordarone] 100 mg PO DAILY 02/07/22 07/31/22 History Folic Acid 0.8 mg PO DAILY 02/07/22 07/31/22 History Metoprolol Succinate (ER) [Toprol 25 mg PO DAILY 02/07/22 07/31/22 History XL] Cholestyramine (with Sugar) 4 gm PO BID 06/03/22 07/31/22 History [Questran Packet] Diphenoxylate HCl/Atropine 1 tab PO DAILY 06/03/22 07/31/22 History [Lomotil 2.5-0.025 mg Tablet] Lidocaine-Prilocaine Cream [Emla 1 applic TOPICAL DAILY PRN 06/03/22 07/31/22 History Cream 2.5%/2.5%] calcitrioL [Calcitriol] 0.25 mcg PO MO 06/03/22 07/31/22 History Apixaban [Eliquis] 2.5 mg PO BID #0 06/07/22 07/31/22 Rx Docusate [Colace] 100 mg PO BID PRN cap 06/07/22 07/31/22 Rx Insulin Glargine,Hum.rec.anlog 30 units SQ HS #0 06/07/22 07/31/22 Rx [Lantus Solostar Pen] Famotidine [Pepcid] 20 mg PO DAILY PRN 07/16/22 07/31/22 History Torsemide [Demadex] 40 mg PO DAILY #30 tab 07/23/22 07/31/22 Rx INSULIN ASPART (NovoLOG) [NovoLOG See Protocol SQ ACHS PRN 07/31/22 07/31/22 History (formulary)] Allergies Allergy/AdvReac Type Severity Reaction Status Date / Time Penicillins Allergy Unknown Rash/Hives Verified 07/31/22 19:23 adhesive AdvReac skin tears Verified 07/31/22 19:23 Surgical - Exam Vital Signs Temp Pulse Resp BP Pulse Ox 97 F L 79 24 106/51 97 07/31/22 15:59 07/31/22 15:59 07/31/22 15:59 07/31/22 15:59 07/31/22 15:59 Results - Labs 07/31/22 17:02 07/31/22 17:02 Abnormal Lab Results - Last 24 Hours (Table) 07/31/22 08/01/22 08/01/22 Range/Units 20:20 05:42 11:37 POC Glucose (mg/dL) 144 H 151 H (70-110) mg/dL Urine Protein 1+ H (Negative) Urine Glucose (UA) 2+ H (Negative) Urine Ketones Trace H (Negative) Urine Bacteria Rare H (None) /hpf Urine Mucus Rare H (None) /hpf 08/01/22 Range/Units 16:34 POC Glucose (mg/dL) 162 H (70-110) mg/dL Urine Protein (Negative) Urine Glucose (UA) (Negative) Urine Ketones (Negative) Urine Bacteria (None) /hpf Urine Mucus (None) /hpf
[2022-08-01 20:04] LABS: Glucose,Whole Blood 206 mg/dL (70-110)
[2022-08-01] MEDS: INSULIN DETEMIR (LEVEMIR) 100 UNIT/ML SYR SQ SCH (21:40)
[2022-08-01] MEDS: PRAVASTATIN SODIUM 40 MG TAB PO SCH (21:41)
[2022-08-02 06:00] LABS: Glucose,Whole Blood 104 mg/dL (70-110)
[2022-08-02] MEDS: INSULIN ASPART (NovoLOG) 100 UNIT/ML VIAL SQ SCH ×4 (08:51→22:22)
[2022-08-02] MEDS: METOPROLOL SUCCINATE (ER) 25 MG TAB.ER.24H PO SCH (08:59)
[2022-08-02] MEDS: hydrALAZINE HCL 25 MG TAB PO SCH ×2 (08:59→22:00)
[2022-08-02] MEDS: FERROUS SULFATE 325 MG TAB PO SCH (08:59)
[2022-08-02] MEDS: FOLIC ACID 1 MG TAB PO SCH (08:59)
[2022-08-02] MEDS: amLODIPine 5 MG TAB PO SCH (08:59)
[2022-08-02] MEDS: AMIODARONE 100 MG TAB PO SCH (08:59)
[2022-08-02] MEDS: allopurinoL 100 MG TAB PO SCH (08:59)
[2022-08-02] MEDS: CHOLECALCIFEROL 25 MCG (1000 IU) TABLET PO SCH (08:59)
[2022-08-02] MEDS: FUROSEMIDE 10 MG/ML 10 ML VIAL IV SCH ×2 (08:59→22:00)
[2022-08-02] MEDS: TAMSULOSIN 0.4 MG CAP.ER.24H PO SCH ×2 (08:59→22:00)
[2022-08-02] MEDS: CHOLESTYRAMINE (WITH SUGAR) 4 GM PACKET PO SCH ×2 (09:00→22:22)
--- NOTE | 2022-08-02 10:03 | P.PN ---
Progress Note - Text Progress Note Date: 08/02/22 Patient [place] stable. He is less short of breath. He denies any chest wall pain. He'll continue receive supportive care.
[2022-08-02 10:10] LABS: Anisocytosis Slight; Basophils % (A) 1 %; Eosinophils # (A) 0.1 k/uL (0-0.7); Eosinophils % (A) 2 %; HCT 22.1 % (39.0-53.0); Hypochromasia Marked; Lymphocytes # (A) 0.3 k/uL (1.0-4.8); Lymphocytes % (A) 10 %; MCH 32.5 pg (25.0-35.0); MCHC 31.9 g/dL (31.0-37.0); MCV 101.7 fL (80.0-100.0); Macrocytosis Slight; Mean Platelet Volume 8.8; Monocytes # (A) 0.3 k/uL (0-1.0); Monocytes % (A) 9 %; Neutrophils # (A) 2.5 k/uL (1.3-7.7); Neutrophils % (A) 76 %; Platelet Count 238 k/uL (150-450); RBC 2.17 m/uL (4.30-5.90); RDW 16.8 % (11.5-15.5); WBC 3.2 k/uL (3.8-10.6)
--- NOTE | 2022-08-02 10:11 | P.PN ---
Subjective Patient is seen in follow-up for chronic kidney disease. Urine output 225 mL overnight. Resting in bed. Denies chest pain or shortness of breath at this time. On nasal cannula. Scheduled for Pcath placement tomorrow. Vital signs are stable. General: Awake. No acute distress. HEENT: Head exam is unremarkable. LUNGS: Breath sounds decreased. HEART: Rate and Rhythm are regular. ABDOMEN: Soft, obese. EXTREMITITES: Trace edema. Objective - Vital Signs Vital signs: Vital Signs Temp 97.6 F 08/02/22 08:00 Pulse 64 08/02/22 08:51 Resp 16 08/02/22 08:51 BP 120/67 08/02/22 08:00 Pulse Ox 98 08/02/22 09:07 FiO2 Intake & Output 08/01/22 08/02/22 08/02/22 18:59 06:59 18:59 Intake Total 400 120 Output Total 615 125 Balance 400 -615 -5 Weight 102.1 kg Intake: Oral 400 120 Output: Drainage 15 Right Chest 15 Urine 600 125 Other: Voiding Method Urinal Urinal Urinal Diaper # Voids 0 # Bowel Movements 1 - Labs CBC & Chem 7: 07/31/22 17:02 07/31/22 17:02 Labs: Abnormal Lab Results - Last 24 Hours (Table) 08/01/22 08/01/22 08/01/22 Range/Units 11:37 16:34 20:02 POC Glucose (mg/dL) 151 H 162 H 206 H (70-110) mg/dL Assessment and Plan Plan: Assessment: 1. Chronic kidney disease stage V secondary to nephrosclerosis/diabetic kidney disease. 2. Volume overload. Frequent admissions for volume overload. 3. Hypertension with chronic kidney disease. Stable. 4. Diabetes mellitus. 5. Breast cancer status post right mastectomy with lymph node biopsy. 6. Anemia of chronic kidney disease. 7. Metabolic acidosis secondary to chronic kidney disease. 8. Mild hyperkalemia secondary to acute kidney injury and acidosis. Plan: Maintain IV Lasix. Check phosphorus level. Check iron studies. Start hemodialysis tomorrow. P cath placement scheduled for tomorrow. Add oral bicarbonate for now.
[2022-08-02 10:15] LABS: Albumin 3.5 g/dL (3.5-5.0); Calcium 9.6 mg/dL (8.4-10.2); Potassium 4.9 mmol/L (3.5-5.1); Total Bilirubin 0.3 mg/dL (0.2-1.3); Total Protein 5.2 g/dL (6.3-8.2)
[2022-08-02] MEDS: ACETAMINOPHEN TAB 325 MG TAB PO PRN ×2 (10:35→16:38)
[2022-08-02] MEDS: SODIUM BICARBONATE TAB 650 MG TAB PO SCH ×2 (10:35→22:00)
[2022-08-02 11:32] LABS: Glucose,Whole Blood 116 mg/dL (70-110)
--- NOTE | 2022-08-02 14:12 | P.PN ---
Subjective Progress Note Date: 08/02/22 Principal diagnosis: Shortness of breath. This is a very pleasant 72-year-old male patient with a known history of hypertension, hyperlipidemia, myocardial infarction, obstructive sleep apnea, coronary artery disease with previous coronary artery bypass grafting and stent placement, atrial fibrillation/flutter, DVT, GERD, chronic kidney disease stage IV. He also was found to have right-sided breast cancer and had undergone a right mastectomy earlier this month and initiated on chemotherapy. He had also been treated for acute diastolic congestive heart failure with a right pleural effusion. He had been offered hemodialysis a month or 2 ago but had declined. He presented here to the emergency room yesterday with worsening shortness of breath 4 days prior to his arrival. He did decide to go ahead with dialysis catheter placement that is to be done on 08/03/2022 2 being on Eliquis. Chest x-ray does show persistent cardiomegaly and with small to moderate right side greater than left pleural effusions and moderate central vascular congestion. Stable right internal jugular Mediport catheter in place. Ventilation perfusion scan revealed very low probability for pulmonary embolism. White count 3.4. Hemoglobin 7.8. INR 1.1. Sodium 137. Potassium 5.3. Bicarb 17. BUN 89. Creatinine 4.87. Glucose 156. Hunt virus by PCR not detected. He is seen today in consultation on the regular medical floor. He is currently resting flat in bed. Awake and alert in no acute distress. Maintaining good O2 saturations in the 90s on 2 L/m per nasal cannula. He's been initiated on Lasix 80 mg IV every 12 hours. Eliquis remains on hold. Progress note dated 08/02/2022. The patient is resting comfortably in room 365. He was seen yesterday in consultation. He came in with shortness of breath, thought to be related to fluid overload. Today, he's feeling about the same as did yesterday. No better or no worse. White count 4.2, hemoglobin 7, hematocrit 22.1, and platelet count 238,000. Sodium 137, potassium 4.9, chlorides 105, CO2 23, BUN 82, and crea tinine 5.41. The patient has decided to go ahead and proceed with hemodialysis. Objective - Vital Signs Vital signs: Vital Signs Temp 97.4 F L 08/02/22 11:16 Pulse 65 08/02/22 13:13 Resp 20 08/02/22 11:16 BP 123/70 08/02/22 11:16 Pulse Ox 97 08/02/22 11:16 FiO2 Intake & Output 08/01/22 08/02/22 08/02/22 18:59 06:59 18:59 Intake Total 400 240 Output Total 615 125 Balance 400 -615 115 Weight 102.1 kg 102.1 kg Intake: Oral 400 240 Output: Drainage 15 Right Chest 15 Urine 600 125 Other: Voiding Method Urinal Urinal Urinal Diaper # Voids 0 # Bowel Movements 1 - Exam No acute distress, oriented 3. Currently on 3 L of oxygen. No use of accessory muscles, or conversational dyspnea. HEENT examination is grossly unremarkable. Neck supple. Full range of motion. No adenopathy thyromegaly or neck vein distention. Cardiovascular examination reveals regular rhythm rate. S1-S2 normal. No S3 or S4. No discernible murmur noted. Lungs reveal bibasilar crackles. No wheezes or rhonchi. Breath sounds equal bilaterally. Abdomen soft bowel sounds are heard. No masses or tenderness. Extremities are intact. No cyanosis or clubbing. Trace edema is noted. Skin reveals some chronic venous stasis changes. Neurologic examination is brief but nonfocal. - Labs CBC & Chem 7: 08/02/22 08:08 08/02/22 08:08 Labs: Abnormal Lab Results - Last 24 Hours (Table) 08/01/22 08/01/22 08/02/22 Range/Units 16:34 20:02 08:08 WBC 3.2 L (3.8-10.6) k/uL RBC 2.17 L (4.30-5.90) m/uL Hgb 7.0 L (13.0-17.5) gm/dL Hct 22.1 L (39.0-53.0) % MCV 101.7 H (80.0-100.0) fL RDW 16.8 H (11.5-15.5) % Lymphocytes # 0.3 L (1.0-4.8) k/uL BUN (9-20) mg/dL Creatinine (0.66-1.25) mg/dL POC Glucose (mg/dL) 162 H 206 H (70-110) mg/dL Total Protein (6.3-8.2) g/dL 08/02/22 08/02/22 Range/Units 08:08 11:30 WBC (3.8-10.6) k/uL RBC (4.30-5.90) m/uL Hgb (13.0-17.5) gm/dL Hct (39.0-53.0) % MCV (80.0-100.0) fL RDW (11.5-15.5) % Lymphocytes # (1.0-4.8) k/uL BUN 82 H (9-20) mg/dL Creatinine 5.41 H (0.66-1.25) mg/dL POC Glucose (mg/dL) 116 H (70-110) mg/dL Total Protein 5.2 L (6.3-8.2) g/dL Assessment and Plan Assessment: Acute hypoxemic respiratory failure secondary to fluid volume overload from diastolic congestive heart failure. Chronic kidney disease stage IV, now agreeable to hemodialysis and plans for permacath placement on 08/03/2022. History of atrial fibrillation, anticoagulated with Eliquis, currently on hold. History of DVT, treated with Eliquis. Right-sided breast cancer status post mastectomy on 07/21/2022, receiving chemotherapy. Hypertension. Diabetes mellitus. Hyperlipidemia. History of gout. History of coronary artery disease with previous coronary bypass grafting as well as previous stent placement. Benign prostatic hyperplasia. Diabetic polyneuropathy. History of meningioma with left-sided weakness. History of anemia from chronic kidney disease. Plan: Plan dated 08/02/2022. The patient will have hemodialysis catheter placed in the near future. He probably will benefit from hemodialysis, as his problem now is fluid overload. We will continue to follow and make recommendations along the way. Labs, x- rays, and medications are all reviewed. Prognosis is guarded. His is in the room today. All questions are answered. Time with Patient: Less than 30
[2022-08-02] MEDS: PRAMIPEXOLE 0.25 MG TAB PO SCH (14:33)
[2022-08-02 16:21] LABS: Glucose,Whole Blood 135 mg/dL (70-110)
[2022-08-02 16:58] LABS: % Iron Saturation 35.86 (15.00-50.00)
[2022-08-02] MEDS ORDERED: SODIUM FERRIC GLUCONAT-SUCROSE 125 MG in SODIUM CHLORIDE 0.9% 100 ML IVPB ONE (17:00)
[2022-08-02 17:12] LABS: Ferritin 90.3 ng/mL (22.0-322.0)
[2022-08-02 20:20] LABS: Glucose,Whole Blood 164 mg/dL (70-110)
[2022-08-02] MEDS ORDERED: HYDROmorphone 0.5 MG/0.5 ML SYRINGE IVP PRN (21:39)
[2022-08-02] MEDS ORDERED: HYDROcodone/APAP 7.5-325MG 1 EACH TAB PO PRN (21:39)
[2022-08-02] MEDS: MELATONIN 3 MG TABLET PO SCH (22:00)
[2022-08-02] MEDS: PRAVASTATIN SODIUM 40 MG TAB PO SCH (22:00)
[2022-08-02] MEDS: INSULIN DETEMIR (LEVEMIR) 100 UNIT/ML SYR SQ SCH (22:02)
[2022-08-03 06:20] LABS: Glucose,Whole Blood 147 mg/dL (70-110)
[2022-08-03] MEDS: INSULIN ASPART (NovoLOG) 100 UNIT/ML VIAL SQ SCH ×4 (06:28→20:54)
[2022-08-03] MEDS: FUROSEMIDE 10 MG/ML 10 ML VIAL IV SCH ×2 (08:14→21:10)
[2022-08-03] MEDS: ONDANSETRON 4 MG/2 ML VIAL IVP PRN (09:01)
--- NOTE | 2022-08-03 09:16 | P.PN ---
Subjective Patient is seen in follow-up for chronic kidney disease. Urine output better with IV Lasix. Vomited after receiving Dilaudid. Hasn't vomited today. Resting in bed. Denies chest pain or shortness of breath at this time. On nasal cannula. Scheduled for Pcath placement today. Vital signs are stable. General: Awake. No acute distress. HEENT: Head exam is unremarkable. LUNGS: Breath sounds decreased. HEART: Rate and Rhythm are regular. ABDOMEN: Soft, obese. EXTREMITITES: Trace edema. Objective - Vital Signs Vital signs: Vital Signs Temp 97.5 F L 08/03/22 08:08 Pulse 62 08/03/22 08:08 Resp 18 08/03/22 08:08 BP 121/69 08/03/22 08:08 Pulse Ox 97 08/03/22 08:58 FiO2 Intake & Output 08/02/22 08/03/22 08/03/22 18:59 06:59 18:59 Intake Total 360 Output Total 625 380 Balance -265 -380 Weight 102.1 kg 103 kg Intake: Oral 360 Output: Drainage 30 Right Chest 30 Urine 625 350 Other: Voiding Method Urinal Urinal Diaper Diaper - Labs CBC & Chem 7: 08/02/22 08:08 08/02/22 08:08 Labs: Abnormal Lab Results - Last 24 Hours (Table) 08/02/22 08/02/22 08/02/22 Range/Units 08:08 08:08 11:30 WBC 3.2 L (3.8-10.6) k/uL RBC 2.17 L (4.30-5.90) m/uL Hgb 7.0 L (13.0-17.5) gm/dL Hct 22.1 L (39.0-53.0) % MCV 101.7 H (80.0-100.0) fL RDW 16.8 H (11.5-15.5) % Lymphocytes # 0.3 L (1.0-4.8) k/uL BUN 82 H (9-20) mg/dL Creatinine 5.41 H (0.66-1.25) mg/dL POC Glucose (mg/dL) 116 H (70-110) mg/dL Total Protein 5.2 L (6.3-8.2) g/dL 08/02/22 08/02/22 08/03/22 Range/Units 16:20 20:18 06:19 WBC (3.8-10.6) k/uL RBC (4.30-5.90) m/uL Hgb (13.0-17.5) gm/dL Hct (39.0-53.0) % MCV (80.0-100.0) fL RDW (11.5-15.5) % Lymphocytes # (1.0-4.8) k/uL BUN (9-20) mg/dL Creatinine (0.66-1.25) mg/dL POC Glucose (mg/dL) 135 H 164 H 147 H (70-110) mg/dL Total Protein (6.3-8.2) g/dL Assessment and Plan Plan: Assessment: 1. Chronic kidney disease stage V secondary to nephrosclerosis/diabetic kidney disease. 2. Volume overload. Frequent admissions for volume overload. 3. Hypertension with chronic kidney disease. Stable. 4. Diabetes mellitus. 5. Breast cancer status post right mastectomy with lymph node biopsy. 6. Anemia of chronic kidney disease. Iron replete. 7. Metabolic acidosis secondary to chronic kidney disease. On oral bicarbonate. 8. Mild hyperkalemia secondary to acute kidney injury and acidosis. Improved. Plan: Maintain IV Lasix. Follow-up phosphorus level. Hold off on HELENA due to malignancy. Peak cath placement today. First treatment of hemodialysis today and second treatment water. industrial maintenance manager to set up outpatient hemodialysis. Hold hydralazine for systolic blood pressure less than 120.
[2022-08-03] MEDS ORDERED: fentaNYL (PF) 50 MCG/ML 2 ML AMP ONE (09:21)
[2022-08-03] MEDS ORDERED: fentaNYL (PF) 50 MCG/ML 2 ML AMP IV ONE (09:25)
[2022-08-03] MEDS ORDERED: MIDAZOLAM 2 MG/2 ML VIAL IV ONE (09:25)
[2022-08-03] MEDS ORDERED: LIDOCAINE 1% INJ 10MG/ML (30 ML VIAL-PF) SQ ONE (09:28)
[2022-08-03] MEDS: CHOLESTYRAMINE (WITH SUGAR) 4 GM PACKET PO SCH ×2 (10:01→21:10)
[2022-08-03] MEDS: AMIODARONE 100 MG TAB PO SCH (10:46)
--- NOTE | 2022-08-03 11:02 | P.PCN ---
Description of Procedure: Preop diagnoses acute chronic renal failure Postop same Procedure suprapubic venacavogram #2 placement of a 29 same dialysis catheter left jugular approach #3 sedation time was 30 minutes Patient brought to the [facility] right and left sides neck was prepped and draped applied sterile manner this patient has history of see of the breast on the right side patient has a right internal jugular vein Port-A-Cath placement in the past 1% lidocaine for infected under IV sedation ultrasound guided micropuncture introduced left internal jugular vein. Micropuncture guidewire was passed there was some difficulty in passing the micropuncture guidewire we did the superior venacavogram there was no stenosis noted then we passed a Glidewire which was parked at the inferior vena cava. Then tunnel was created through the terminal be brought 28 same dialysis catheter. After that we passed a dilator on the top of the wire under fluoroscopy control and sheath was advanced on top of guidewire through the sheath we did use dialysis catheter tip of the catheters. A vena cava at the junction flush with heparin saline and Hep-Lock secured with 3-0 nylon dressing applied patient tolerated the procedure well and transferred to the floor eccentric condition plan is a excision of the chest
[2022-08-03 12:16] LABS: Glucose,Whole Blood 128 mg/dL (70-110)
--- NOTE | 2022-08-03 12:17 | P.PN ---
Progress Note - Text Progress Note Date: 08/03/22 Patient [place] stable. His right chest wall incision is stable. He's also short of breath. He will continue to have supportive care.
[2022-08-03 12:21] LABS: Anisocytosis Slight; Basophils % (A) 0 %; Eosinophils % (A) 1 %; Hypochromasia Marked; Lymphocytes # (A) 0.2 k/uL (1.0-4.8); Lymphocytes % (A) 7 %; MCHC 30.1 g/dL (31.0-37.0); MCV 103.1 fL (80.0-100.0); Macrocytosis Moderate; Mean Platelet Volume 8.8; Monocytes # (A) 0.2 k/uL (0-1.0); Monocytes % (A) 6 %; Neutrophils # (A) 2.8 k/uL (1.3-7.7); Neutrophils % (A) 82 %; Platelet Count 207 k/uL (150-450); RBC 2.13 m/uL (4.30-5.90); RDW 17.8 % (11.5-15.5); WBC 3.5 k/uL (3.8-10.6)
[2022-08-03 12:24] LABS: HGB 6.6 gm/dL (13.0-17.5)
[2022-08-03 12:33] LABS: Albumin 3.5 g/dL (3.5-5.0); Calcium 9.6 mg/dL (8.4-10.2); Magnesium 2.4 mg/dL (1.6-2.3); Phosphorus 5.4 mg/dL (2.5-4.5); Potassium 4.7 mmol/L (3.5-5.1); Total Bilirubin 0.2 mg/dL (0.2-1.3); Total Protein 5.4 g/dL (6.3-8.2)
[2022-08-03] MEDS: hydrALAZINE HCL 25 MG TAB PO SCH ×2 (12:53→21:09)
[2022-08-03] MEDS: amLODIPine 5 MG TAB PO SCH (12:53)
--- NOTE | 2022-08-03 13:08 | P.HPIM ---
History of Present Illness H&P Date: 08/01/22 HISTORY OF PRESENT ILLNESS: this is a 72-year-old male with a previous medical history significant for hypertension and hypertensive cardiovascular disease with left ventricular hypertrophy, hyperlipidemia, diabetes mellitus type 2, with diabetic polyneuropathy, history of coronary artery disease status post coronary artery bypass graft x3 followed by stent, history of atrial fibrillation status post ablation on long-term eliquis, history of meningioma status post resection back in April 2013 with left-sided weakness, history of chronic kidney disease stage IV currently under the care of nephrology with plan for CAPD at later date, history of anemia of chronic kidney disease, history of secondary hyperparathyroidism. Patient also has history of newly diagnosed breast cancer on the right side status post right mastectomy that was done last week here at [facility] by and he was supposed to follow up with him next . patient developed to have increased shortness of breath associated with increased edema and he was sent into the ER by his Insurance Risk Manager for Perma catheter placement for Hemodialysis, vascular surgery consultation was obtained. while the patient was in the ER he had VQ scan ordered to rule out PE for the second time, this was negative for pulmonary embolism, patient was in the ER and a chest x-ray that showed congestive heart failure with bilateral pleural effusion, computed tomography scan of the abdomen and pelvis without contrast did show evidence of significant anasarca with bilateral pleural effusion and moderate amount of ascites due to heart failure. Patient was admitted to the hospital he was started on Lasix 80 mg IV push every 12 hours, he was seen in consultation by pulmonary medicine as well as by general surgery was also seen in consultation by nephrology along with vascular surgery for tunnel catheter placement so the patient can get started on hemodialysis. REVIEW OF SYSTEMS: Constitutional: No documented fever, no chills, no night sweats. No weight change. positive for weakness, fatigue or lethargy. No daytime sleepiness. HEENT: No headache. No blurred vision or double vision, no loss of vision. No loss of Hearing, no ringing in the ears, no dizziness. No nasal drainage or congestion. No epistaxis. No sore throat. Lungs: positive for shortness of breath, no cough, no sputum production. No wheezing. Reports dyspnea with activity. Cardiovascular: No chest pain, reported lower extremity edema. No palpitations. Reported paroxysmal nocturnal dyspnea. Reports orthopnea. No lightheadedness or dizziness. No syncopal episodes. Abdominal: Reports no abdominal pain. positive for nausea, vomiting. Reports occasional diarrhea. No constipation. No bloody or tarry stools reports loss of appetite. Genitourinary: No dysuria, increased frequency, urgency. No urinary retention. Musculoskeletal: No myalgias. positive for chronic left sided weakness, positive for gait dysfunction, no frequent falls. positive for back pain. positive for neck pain. Integumentary: right mastectomy incision is clean with LUISITO in place no lesions. No rash or pruritus. No unusual bruising. No change in hair or nails. Neurologic: No aphasia. No facial droop. No change in mentation. No head injury. No headache, positive for left sided weakness and left foot drop. Psychiatric: positive for depression. No anxiety. No mood swings. Endocrine: No abnormal blood sugars. No weight change. PAST MEDICAL HISTORY: Coronary artery disease status post coronary artery bypass graft 3 with PCI. Hypertension and hypertensive cardio vascular disease. Hyperlipidemia. Diabetes mellitus type 2. History of meningioma status post resection April 2013 with resultant left- sided weakness. Paroxysmal Atrial fibrillation. Diabetic polyneuropathy. Enlarged prostate. GERD. DVT. Osteoarthritis. Chronic kidney disease stage IV. Anemia of chronic kidney disease. Secondary hyperparathyroidism. Ductal carcinoma right breast PAST SURGICAL HISTORY: CABG 3. Left heart catheterization with PCI. Bilateral cataract surgery with implants. Right arthroscopic knee surgery. Meningioma resection with resultant left-sided weakness. Tonsillectomy and adenoidectomy. Cholecystectomy. EGD and colonoscopy. Cardiac ablation. IVC Pelion filter placement. [id number] SOCIAL HISTORY: Patient is a lifelong nonsmoker he denies any history of drinking he denies any history of drug use or abuse he currently lives with his , he uses a sliding board, he uses a wheelchair and a scooter to ambulate around. FAMILY HISTORY: Mother at age of 92 from natural causes, father at age of 83 from congestive heart failure, patient has one adopted brother, 2 sisters who are okay, patient has one son with no major medical problems and one daughter with hypothyroidism. PHYSICAL EXAMINATION: General: this is a 72-year-old male who is sitting up in bed appears to be in no respiratory distress at rest. HEENT: Head is atraumatic, normocephalic, pupils were equal round reactive to light and recommendation, extraocular muscle movement were intact, sclera nonicteric, conjunctivae were pale, mucous membranes of the mouth are somewhat dry. Neck: Supple, no JVP, normal carotid upstroke bilaterally, no lymphadenopathy. Chest: Decreased breath sounds at the bases with decreased tactile fremitus, few rhonchi, no expiratory wheezes, no chest wall tenderness, no intercostal retractions. Heart: First heart sound is normal, second heart sounds normal, irregularly irregular, there is systolic ejection murmur 2/6 located in the left sternal border. Abdomen: Soft, nontender, nondistended, positive bowel sounds, positive for ascites Extremities: There is +2 edema to the bilateral lower extremities left greater than right no calf tenderness DP +2 bilaterally. Neurologic examination: Patient is awake alert and oriented X3 , cranial nerves II-12 appear grossly intact, there is left-sided weakness with left foot drop. ASSESSMENT AND PLAN: 1. Acute diastolic heart failure with bilateral pleural effusion. Continue pa tient on metoprolol XL 25 mg orally once every day, continue patient on Lasix 80 mg IV push every 12 hours, monitor input and output and daily weight, continue patient also on hydralazine 75 mg orally twice every day, Patient will need to be started on HD , so Tunneled catheter will be inserted by . 2. Right-sided breast cancer status post chemotherapy , Post right mastectomy that was done by Dr. Valdes, LUISITO tube in place, surgery could be clean consult surgery for follow-up. 3. Bilateral pleural effusion, anasarca, ascites, likely related to hypoalbuminemia and chronic heart failure. Continue Lasix 80 mg IV push every 12 hours until the patient started on hemodialysis. 4. Pancytopenia likely related to breast cancer we will continue to monitor. 6. History of CAD post CABG as well as PCI and stent placement. Continue patient on metoprolol XL 25 mg once every day, pravastatin 40 mg at bedtime. 7. History of paroxysmal atrial fibrillation. Continue patient on Eliquis 5 mg orally twice every day, continue amiodarone 100 mg orally once every day, metoprolol XL 25 mg orally once every day. 8. Hypertension and hypertensive cardiovascular disease. Continue patient on amlodipine 5 mg once every day, continue with metoprolol ER 25 mg orally once every day, monitor the patient blood pressure very closely. 9. Hyperlipidemia. Continue patient on pravastatin 40 mg at bedtime, monitor lipid panel, keep LDL 55-70. 10. Chronic kidney disease stage IV, approaching ESRD, we will arrange for Perma catheter placement and HD to be started 11. History of enlarged prostate. Continue Flomax 0.4 mg once every day, monitor for urinary retention. 12. Diabetes mellitus type 2. Continue Lantus 30 units at bedtime, monitor the patient blood glucose level and at bedtime with NovoLog scale 13. Diabetic polyneuropathy. Stable. 14. History of DVT status post IVC filter placement, continue with Eliquis 5 mg orally twice every day. 15. Chronic gout. Continue patient on allopurinol 100 mg orally once every day. 16. History of meningioma with left-sided weakness. Physical therapy evaluation. Admit to inpatient. Estimate a length of stay 2 midnights. Patient is a full code. Past Medical History Past Medical History: Atrial Fibrillation, Atrial Flutter, Coronary Artery Disease (CAD), Cancer, Diabetes Mellitus, Deep Vein Thrombosis (DVT), Eye Disorder, GERD/Reflux, Hyperlipidemia, Hypertension, Myocardial Infarction (RI), Neurologic Disorder, Osteoarthritis (OA), Prostate Disorder, Sleep Apnea/CPAP/BIPAP Additional Past Medical History / Comment(s): Current right breast cancer. HX OF POLYPS, BLOOD IN STOOL, uti's. Hx tailbone fracture, neuropathy to feet. Blind in right eye. Hx encephalopathy, meningioma with left sided weakness, cannot use left leg, wheelcahir bound. PT CAN'T HAVE ANY VACCINES THAT ARE LIVE VIRUSES. PLEASE USE PAPER TAPE ONLY(PT HAS THIN SKIN). uses slide board at home to transfer pt to w/c, with 2 person assist pt can stand/pivot to chair. Last Myocardial Infarction Date:: 02-11-2005 History of Any Multi-Drug Resistant Organisms: None Reported Past Surgical History: Adenoidectomy, Breast Surgery, Cardiac Ablation, Cholecystectomy, Coronary Bypass/CABG, Heart Catheterization With Stent, Orthopedic Surgery, Tonsillectomy Additional Past Surgical History / Comment(s): Triple bypass, Meningioma Removed from Brain 04/2013, peg tube- removed 9 years ago, DESTINEY FILTER, BILATERAL CATARACTS- LENS IMPLANTS, COLONOSCOPY/POLYPECTOMY, RIGHT KNEE ARTHROSCOPY, 07/21/22 right breast mastectomy Past Anesthesia/Blood Transfusion Reactions: No Reported Reaction Date of Last Stent Placement:: 2004 Past Psychological History: Depression Additional Psychological History / Comment(s): PT UNABLE TO AMBULATE BUT ABLE TO STAND WITH ASSIST OF 2 /PIVOT TO W/C OR MOTORIZED CHAIR. 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 USES A SLIDE BOARD Smoking Status: Never smoker Past Alcohol Use History: None Reported Past Drug Use History: None Reported - Past Family History Father History Unknown: Yes Family Medical History: Congestive Heart Failure (CHF) Mother History Unknown: Yes Additional Family Medical History / Comment(s): STILL ALIVE AT AGE 90 IN [facility] Medications and Allergies Home Medications Medication Instructions Recorded Confirmed Type Tamsulosin HCl [Flomax] 0.4 mg PO BID 06/19/15 07/31/22 History amLODIPine [Norvasc] 5 mg PO DAILY 07/09/16 07/31/22 History Ferrous Sulfate [Iron (65 MG 325 mg PO DAILY 03/21/21 07/31/22 History Elemental)] Pravastatin Sodium [Pravachol] 40 mg PO HS 03/21/21 07/31/22 History allopurinoL [Zyloprim] 100 mg PO DAILY 03/21/21 07/31/22 History hydrALAZINE HCL [Apresoline] 75 mg PO BID 03/21/21 07/31/22 History Cholecalciferol [Vitamin D3 (25 25 mcg PO DAILY 01/13/22 07/31/22 History Mcg = 1000 Iu)] Amiodarone [Cordarone] 100 mg PO DAILY 02/07/22 07/31/22 History Folic Acid 0.8 mg PO DAILY 02/07/22 07/31/22 History Metoprolol Succinate (ER) [Toprol 25 mg PO DAILY 02/07/22 07/31/22 History XL] Cholestyramine (with Sugar) 4 gm PO BID 06/03/22 07/31/22 History [Questran Packet] Diphenoxylate HCl/Atropine 1 tab PO DAILY 06/03/22 07/31/22 History [Lomotil 2.5-0.025 mg Tablet] Lidocaine-Prilocaine Cream [Emla 1 applic TOPICAL DAILY PRN 06/03/22 07/31/22 History Cream 2.5%/2.5%] calcitrioL [Calcitriol] 0.25 mcg PO MO 06/03/22 07/31/22 History Apixaban [Eliquis] 2.5 mg PO BID #0 06/07/22 07/31/22 Rx Docusate [Colace] 100 mg PO BID PRN cap 06/07/22 07/31/22 Rx Insulin Glargine,Hum.rec.anlog 30 units SQ HS #0 06/07/22 07/31/22 Rx [Lantus Solostar Pen] Famotidine [Pepcid] 20 mg PO DAILY PRN 07/16/22 07/31/22 History Torsemide [Demadex] 40 mg PO DAILY #30 tab 07/23/22 07/31/22 Rx INSULIN ASPART (NovoLOG) [NovoLOG See Protocol SQ ACHS PRN 07/31/22 07/31/22 History (formulary)] Allergies Allergy/AdvReac Type Severity Reaction Status Date / Time Penicillins Allergy Unknown Rash/Hives Verified 07/31/22 19:23 adhesive AdvReac skin tears Verified 07/31/22 19:23 Physical Exam Vitals: Vital Signs Temp Pulse Resp BP Pulse Ox 08/02/22 15:46 98 08/02/22 15:12 97.5 F L 64 20 125/73 94 L 08/02/22 13:13 65 08/02/22 11:16 97.4 F L 65 20 123/70 97 08/02/22 09:07 98 08/02/22 08:51 64 16 08/02/22 08:00 97.6 F 64 16 120/67 98 08/02/22 04:00 97.6 F 62 17 114/68 97 08/02/22 01:49 68 18 08/02/22 00:00 97.4 F L 68 18 121/74 96 08/01/22 21:16 68 122/72 08/01/22 20:00 97.5 F L 62 18 130/75 97 Intake and Output 08/02/22 08/02/22 08/02/22 06:59 14:59 22:59 Intake Total 240 Output Total 350 125 100 Balance -350 115 -100 Intake: Oral 240 Output: Urine 350 125 100 Other: Voiding Method Urinal Urinal Diaper Weight 102.1 kg 102.1 kg Results CBC & Chem 7: 08/03/22 11:53 08/03/22 11:53 Labs: Abnormal Lab Results - Last 24 Hours (Table) 08/01/22 08/01/22 08/02/22 Range/Units 16:34 20:02 08:08 WBC 3.2 L (3.8-10.6) k/uL RBC 2.17 L (4.30-5.90) m/uL Hgb 7.0 L (13.0-17.5) gm/dL Hct 22.1 L (39.0-53.0) % MCV 101.7 H (80.0-100.0) fL RDW 16.8 H (11.5-15.5) % Lymphocytes # 0.3 L (1.0-4.8) k/uL BUN (9-20) mg/dL Creatinine (0.66-1.25) mg/dL POC Glucose (mg/dL) 162 H 206 H (70-110) mg/dL Total Protein (6.3-8.2) g/dL 08/02/22 08/02/22 08/02/22 Range/Units 08:08 11:30 16:20 WBC (3.8-10.6) k/uL RBC (4.30-5.90) m/uL Hgb (13.0-17.5) gm/dL Hct (39.0-53.0) % MCV (80.0-100.0) fL RDW (11.5-15.5) % Lymphocytes # (1.0-4.8) k/uL BUN 82 H (9-20) mg/dL Creatinine 5.41 H (0.66-1.25) mg/dL POC Glucose (mg/dL) 116 H 135 H (70-110) mg/dL Total Protein 5.2 L (6.3-8.2) g/dL Thrombosis Risk Factor Assmnt - Choose All That Apply Any of the Below Risk Factors Present?: Yes Each Factor Represents 1 point: History of prior major surgery (<1month), Medical pt on bed rest, Obesity (BMI >25), Swollen legs (current) Other Risk Factors: Yes Each Risk Factor Represents 2 Points: Age 61-74 years Each Risk Factor Represents 3 Points: History of DVT/PE Other congenital or acquired thrombophilia - If yes, enter type in comment: No Thrombosis Risk Factor Assessment Total Risk Factor Score: 9 Thrombosis Risk Factor Assessment Level: High Risk
--- NOTE | 2022-08-03 13:11 | P.PN ---
Subjective Progress Note Date: 08/02/22 HISTORY OF PRESENT ILLNESS: this is a 72-year-old male with a previous medical history significant for hy pertension and hypertensive cardiovascular disease with left ventricular hypertrophy, hyperlipidemia, diabetes mellitus type 2, with diabetic polyneuropathy, history of coronary artery disease status post coronary artery bypass graft x3 followed by stent, history of atrial fibrillation status post a blation on long-term eliquis, history of meningioma status post resection back in April 2013 with left-sided weakness, history of chronic kidney disease stage IV currently under the care of nephrology with plan for CAPD at later date, history of anemia of chronic kidney disease, history of secondary hyperparathyroidism. Patient also has history of newly diagnosed breast cancer on the right side status post right mastectomy that was done last week here at [facility] by and he was supposed to follow up with him next . patient developed to have increased shortness of breath associated with increased edema and he was sent into the ER by his Tire Center Supervisor for Permacatheter placement for Hemodialysis, vascular surgery consultation was obtained. while the patient was in the ER he had VQ scan ordered to rule out PE for the second time, this was negative for pulmonary embolism, patient was in the ER and a chest x-ray that showed congestive heart failure with bilateral pleural effusion, computed tomography scan of the abdomen and pelvis without contrast did show evidence of significant anasarca with bilateral pleural effusion and moderate amount of ascites due to heart failure. Patient was admitted to the hospital he was started on Lasix 80 mg IV push every 12 hours, he was seen in consultation by pulmonary medicine as well as by general surgery was also seen in consultation by nephrology along with vascular surgery for tunnel catheter placement so the patient can get started on hemodialysis. 08/02: Patient is laying down in bed and he appears to be somewhat nauseated, he does not have a very good appetite, he continues to have swelling in both lower extremities, is complaining of significant restless leg syndrome, he was started on Mirapex 0.25 mg orally at bedtime, we'll continue to follow the patient very closely is scheduled to go for permacatheter placement tomorrow morning, and is dropping, patient will require blood transfusion if his hemoglobin less than 7. REVIEW OF SYSTEMS: Constitutional: No documented fever, no chills, no night sweats. No weight change. positive for weakness, fatigue or lethargy. No daytime sleepiness. HEENT: No headache. No blurred vision or double vision, no loss of vision. No loss of Hearing, no ringing in the ears, no dizziness. No nasal drainage or congestion. No epistaxis. No sore throat. Lungs: positive for shortness of breath, no cough, no sputum production. No wheezing. Reports dyspnea with activity. Cardiovascular: No chest pain, reported lower extremity edema. No palpitations. Reported paroxysmal nocturnal dyspnea. Reports orthopnea. No lightheadedness or dizziness. No syncopal episodes. Abdominal: Reports no abdominal pain. positive for nausea, vomiting. Reports occasional diarrhea. No constipation. No bloody or tarry stools reports loss of appetite. Genitourinary: No dysuria, increased frequency, urgency. No urinary retention. Musculoskeletal: No myalgias. positive for chronic left sided weakness, positive for gait dysfunction, no frequent falls. positive for back pain. positive for neck pain. Integumentary: right mastectomy incision is clean with LUISITO in place no lesions. No rash or pruritus. No unusual bruising. No change in hair or nails. Neurologic: No aphasia. No facial droop. No change in mentation. No head injury. No headache, positive for left sided weakness and left foot drop. Psychiatric: positive for depression. No anxiety. No mood swings. Endocrine: No abnormal blood sugars. No weight change. PHYSICAL EXAMINATION: General: this is a 72-year-old male who is sitting up in bed appears to be in no respiratory distress at rest. HEENT: Head is atraumatic, normocephalic, pupils were equal round reactive to light and recommendation, extraocular muscle movement were intact, sclera nonicteric, conjunctivae were pale, mucous membranes of the mouth are somewhat dry. Neck: Supple, no JVP, normal carotid upstroke bilaterally, no lymphadenopathy. Chest: Decreased breath sounds at the bases with decreased tactile fremitus, few rhonchi, no expiratory wheezes, no chest wall tenderness, no intercostal retractions. Heart: First heart sound is normal, second heart sounds normal, irregularly irregular, there is systolic ejection murmur 2/6 located in the left sternal border. Abdomen: Soft, nontender, nondistended, positive bowel sounds, positive for ascites Extremities: There is +2 edema to the bilateral lower extremities left greater than right no calf tenderness DP +2 bilaterally. Neurologic examination: Patient is awake alert and oriented X3 , cranial nerves II-12 appear grossly intact, there is left-sided weakness with left foot drop. ASSESSMENT AND PLAN: 1. Acute diastolic heart failure with bilateral pleural effusion. Continue patient on metoprolol XL 25 mg orally once every day, continue patient on Lasix 80 mg IV push every 12 hours, monitor input and output and daily weight, continue patient also on hydralazine 75 mg orally twice every day, Patient will need to be started on HD , so Tunneled catheter will be inserted by in AM 2. Right-sided breast cancer status post chemotherapy , Post right mastectomy that was done by Dr. Valdes, LUISITO tube in place, surgery could be clean consult surgery for follow-up. 3. Bilateral pleural effusion, anasarca, ascites, likely related to hypoalbuminemia and chronic heart failure. Continue Lasix 80 mg IV push every 12 hours until the patient started on hemodialysis. 4. Pancytopenia likely related to breast cancer we will continue to monitor. 6. History of CAD post CABG as well as PCI and stent placement. Continue patient on metoprolol XL 25 mg once every day, pravastatin 40 mg at bedtime. 7. History of paroxysmal atrial fibrillation. Continue patient on Eliquis 5 mg orally twice every day, continue amiodarone 100 mg orally once every day, met oprolol XL 25 mg orally once every day. 8. Hypertension and hypertensive cardiovascular disease. Continue patient on amlodipine 5 mg once every day, continue with metoprolol ER 25 mg orally once ev , monitor the patient blood pressure very closely. 9. Hyperlipidemia. Continue patient on pravastatin 40 mg at bedtime, monitor lipid panel, keep LDL 55-70. 10. Chronic kidney disease stage IV, approaching ESRD, we will arrange for Perma catheter placement and HD to be started 11. History of enlarged prostate. Continue Flomax 0.4 mg once every day, monitor for urinary retention. 12. Diabetes mellitus type 2. Continue Lantus 30 units at bedtime, monitor the patient blood glucose level and at bedtime with NovoLog scale 13. Diabetic polyneuropathy. Stable. 14. History of DVT status post IVC filter placement, continue with Eliquis 5 mg orally twice every day. 15. Chronic gout. Continue patient on allopurinol 100 mg orally once every day. 16. History of meningioma with left-sided weakness. Physical therapy evaluation. 17. Insomnia. Start the patient on melatonin 3 mg bedtime. 18. Restless leg syndrome. Continue patient on Mirapex 0.5 mg orally at bedtime. 19. Guarded prognosis. Objective - Vital Signs Vital signs: Vital Signs Temp 97.5 F L 08/02/22 15:12 Pulse 64 08/02/22 15:12 Resp 20 08/02/22 15:12 BP 125/73 08/02/22 15:12 Pulse Ox 98 08/02/22 15:46 FiO2 Intake & Output 08/01/22 08/02/22 08/02/22 18:59 06:59 18:59 Intake Total 400 240 Output Total 615 225 Balance 400 -615 15 Weight 102.1 kg 102.1 kg Intake: Oral 400 240 Output: Drainage 15 Right Chest 15 Urine 600 225 Other: Voiding Method Urinal Urinal Urinal Diaper # Voids 0 # Bowel Movements 1 - Labs CBC & Chem 7: 08/03/22 11:53 08/03/22 11:53 Labs: Abnormal Lab Results - Last 24 Hours (Table) 08/01/22 08/01/22 08/02/22 Range/Units 16:34 20:02 08:08 WBC 3.2 L (3.8-10.6) k/uL RBC 2.17 L (4.30-5.90) m/uL Hgb 7.0 L (13.0-17.5) gm/dL Hct 22.1 L (39.0-53.0) % MCV 101.7 H (80.0-100.0) fL RDW 16.8 H (11.5-15.5) % Lymphocytes # 0.3 L (1.0-4.8) k/uL BUN (9-20) mg/dL Creatinine (0.66-1.25) mg/dL POC Glucose (mg/dL) 162 H 206 H (70-110) mg/dL Total Protein (6.3-8.2) g/dL 08/02/22 08/02/22 08/02/22 Range/Units 08:08 11:30 16:20 WBC (3.8-10.6) k/uL RBC (4.30-5.90) m/uL Hgb (13.0-17.5) gm/dL Hct (39.0-53.0) % MCV (80.0-100.0) fL RDW (11.5-15.5) % Lymphocytes # (1.0-4.8) k/uL BUN 82 H (9-20) mg/dL Creatinine 5.41 H (0.66-1.25) mg/dL POC Glucose (mg/dL) 116 H 135 H (70-110) mg/dL Total Protein 5.2 L (6.3-8.2) g/dL
--- NOTE | 2022-08-03 14:22 | P.PN ---
Subjective Progress Note Date: 08/03/22 Principal diagnosis: Shortness of breath. This is a very pleasant 72-year-old male patient with a known history of hypertension, hyperlipidemia, myocardial infarction, obstructive sleep apnea, coronary artery disease with previous coronary artery bypass grafting and stent placement, atrial fibrillation/flutter, DVT, GERD, chronic kidney disease stage IV. He also was found to have right-sided breast cancer and had undergone a right mastectomy earlier this month and initiated on chemotherapy. He had also been treated for acute diastolic congestive heart failure with a right pleural effusion. He had been offered hemodialysis a month or 2 ago but had declined. He presented here to the emergency room yesterday with worsening shortness of breath 4 days prior to his arrival. He did decide to go ahead with dialysis catheter placement that is to be done on 08/03/2022 2 being on Eliquis. Chest x-ray does show persistent cardiomegaly and with small to moderate right side greater than left pleural effusions and moderate central vascular congestion. Stable right internal jugular Mediport catheter in place. Ventilation perfusion scan revealed very low probability for pulmonary embolism. White count 3.4. Hemoglobin 7.8. INR 1.1. Sodium 137. Potassium 5.3. Bicarb 17. BUN 89. Creatinine 4.87. Glucose 156. Hunt virus by PCR not detected. He is seen today in consultation on the regular medical floor. He is currently resting flat in bed. Awake and alert in no acute distress. Maintaining good O2 saturations in the 90s on 2 L/m per nasal cannula. He's been initiated on Lasix 80 mg IV every 12 hours. Eliquis remains on hold. Progress note dated 08/02/2022. The patient is resting comfortably in room 365. He was seen yesterday in consultation. He came in with shortness of breath, thought to be related to fluid overload. Today, he's feeling about the same as did yesterday. No better or no worse. White count 4.2, hemoglobin 7, hematocrit 22.1, and platelet count 238,000. Sodium 137, potassium 4.9, chlorides 105, CO2 23, BUN 82, and crea tinine 5.41. The patient has decided to go ahead and proceed with hemodialysis. Progress note dated 08/03/2022. The patient is again seen at 365. The patient got back to the room recently, having had a hemodialysis catheter placed. The patient may have his first hemodialysis session later today. Clinically he is stable. He is on 3 L of oxygen. The patient is not getting any IV fluids. States that his breathing is about the same. He was admitted with a diagnosis of shortness of breath, secondary to fluid overload, presumably secondary to his worsening renal function. White count 3.5, hemoglobin 6.6, hematocrit 22, and platelet count 207,000. Sodium 135, potassium 4.7, chlorides 105, CO2 22, anion gap 8, BUN 86, creatinine 5.81. Objective - Vital Signs Vital signs: Vital Signs Temp 97.5 F L 08/03/22 08:08 Pulse 58 L 08/03/22 13:14 Resp 18 08/03/22 10:41 BP 114/68 08/03/22 12:51 Pulse Ox 96 08/03/22 10:41 FiO2 Intake & Output 08/02/22 08/03/22 08/03/22 18:59 06:59 18:59 Intake Total 360 Output Total 625 380 Balance -265 -380 Weight 102.1 kg 103 kg Intake: Oral 360 Output: Drainage 30 Right Chest 30 Urine 625 350 Other: Voiding Method Urinal Urinal External Catheter Diaper Diaper # Voids 1 # Bowel Movements 0 - Exam No acute distress, oriented 3. Currently on 3 L of oxygen. No use of accessory muscles, or conversational dyspnea. HEENT examination is grossly unremarkable. Neck supple. Full range of motion. No adenopathy thyromegaly or neck vein distention. Cardiovascular examination reveals regular rhythm rate. S1-S2 normal. No S3 or S4. No discernible murmur noted. Heart rate 58 bpm. Lungs reveal bibasilar crackles. No wheezes or rhonchi. Breath sounds equal bilaterally. Saturations are 95%. Abdomen soft bowel sounds are heard. No masses or tenderness. Extremities are intact. No cyanosis or clubbing. Trace edema is noted. Skin reveals some chronic venous stasis changes. Neurologic examination is brief but nonfocal. - Labs CBC & Chem 7: 08/03/22 11:53 08/03/22 11:53 Labs: Abnormal Lab Results - Last 24 Hours (Table) 08/02/22 08/02/22 08/03/22 Range/Units 16:20 20:18 06:19 WBC (3.8-10.6) k/uL RBC (4.30-5.90) m/uL Hgb (13.0-17.5) gm/dL Hct (39.0-53.0) % MCV (80.0-100.0) fL MCHC (31.0-37.0) g/dL RDW (11.5-15.5) % Lymphocytes # (1.0-4.8) k/uL Sodium (137-145) mmol/L BUN (9-20) mg/dL Creatinine (0.66-1.25) mg/dL Glucose (74-99) mg/dL POC Glucose (mg/dL) 135 H 164 H 147 H (70-110) mg/dL Phosphorus (2.5-4.5) mg/dL Magnesium (1.6-2.3) mg/dL AST (17-59) U/L Total Protein (6.3-8.2) g/dL Crossmatch 08/03/22 08/03/22 08/03/22 Range/Units 11:53 11:53 12:12 WBC 3.5 L (3.8-10.6) k/uL RBC 2.13 L (4.30-5.90) m/uL Hgb 6.6 L* (13.0-17.5) gm/dL Hct 22.0 L (39.0-53.0) % MCV 103.1 H (80.0-100.0) fL MCHC 30.1 L (31.0-37.0) g/dL RDW 17.8 H (11.5-15.5) % Lymphocytes # 0.2 L (1.0-4.8) k/uL Sodium 135 L (137-145) mmol/L BUN 86 H (9-20) mg/dL Creatinine 5.81 H (0.66-1.25) mg/dL Glucose 119 H (74-99) mg/dL POC Glucose (mg/dL) 128 H (70-110) mg/dL Phosphorus 5.4 H (2.5-4.5) mg/dL Magnesium 2.4 H (1.6-2.3) mg/dL AST 16 L (17-59) U/L Total Protein 5.4 L (6.3-8.2) g/dL Crossmatch 08/03/22 Range/Units 12:59 WBC (3.8-10.6) k/uL RBC (4.30-5.90) m/uL Hgb (13.0-17.5) gm/dL Hct (39.0-53.0) % MCV (80.0-100.0) fL MCHC (31.0-37.0) g/dL RDW (11.5-15.5) % Lymphocytes # (1.0-4.8) k/uL Sodium (137-145) mmol/L BUN (9-20) mg/dL Creatinine (0.66-1.25) mg/dL Glucose (74-99) mg/dL POC Glucose (mg/dL) (70-110) mg/dL Phosphorus (2.5-4.5) mg/dL Magnesium (1.6-2.3) mg/dL AST (17-59) U/L Total Protein (6.3-8.2) g/dL Crossmatch See Detail Assessment and Plan Assessment: Acute hypoxemic respiratory failure secondary to fluid volume overload from diastolic congestive heart failure. Chronic kidney disease stage IV, now agreeable to hemodialysis and plans for permacath placement on 08/03/2022. History of atrial fibrillation, anticoagulated with Eliquis, currently on hold. History of DVT, treated with Eliquis. Right-sided breast cancer status post mastectomy on 07/21/2022, receiving chemotherapy. Hypertension. Diabetes mellitus. Hyperlipidemia. History of gout. History of coronary artery disease with previous coronary bypass grafting as well as previous stent placement. Benign prostatic hyperplasia. Diabetic polyneuropathy. History of meningioma with left-sided weakness. History of anemia from chronic kidney disease. Plan: Plan dated 08/02/2022. The patient will have hemodialysis catheter placed in the near future. He probably will benefit from hemodialysis, as his problem now is fluid overload. We will continue to follow and make recommendations along the way. Labs, x-ra ys, and medications are all reviewed. Prognosis is guarded. His is in the room today. All questions are answered. Plan dated 08/03/2022. The patient remains on 3 L. The patient may have his first hemodialysis session later today. His hemodialysis catheter was placed today, August 03, by Dr. Redman. Labs, x-rays, and medications are reviewed. We'll continue to follow make recommendations along the way. The patient had a recent right mastectomy for breast cancer. Time with Patient: Less than 30
--- NOTE | 2022-08-03 14:46 | XR ---
EXAMINATION TYPE: XR chest 1V DATE OF EXAM: 08/03/2022 COMPARISON: 07/31/2022 HISTORY: Line placement TECHNIQUE: Single view FINDINGS: There is left-sided central venous catheter with tip over the right atrium. There is right jugular catheter with tip in the superior vena cava. There are sternal wires. There is bilateral blun ting of the costophrenic angles and pulmonary vascular congestion. IMPRESSION: Congestive heart failure with pleural effusions. Pulmonary edema improved slightly compar ed to last exam. No pneumothorax.
[2022-08-03] MEDS: SODIUM BICARBONATE TAB 650 MG TAB PO SCH ×2 (15:38→21:09)
[2022-08-03] MEDS: TAMSULOSIN 0.4 MG CAP.ER.24H PO SCH ×2 (15:38→21:09)
[2022-08-03 16:51] LABS: Glucose,Whole Blood 119 mg/dL (70-110)
[2022-08-03] MEDS: CHOLECALCIFEROL 25 MCG (1000 IU) TABLET PO SCH (17:43)
[2022-08-03] MEDS: FOLIC ACID 1 MG TAB PO SCH (17:44)
[2022-08-03] MEDS: FERROUS SULFATE 325 MG TAB PO SCH (17:44)
[2022-08-03] MEDS: allopurinoL 100 MG TAB PO SCH (17:44)
[2022-08-03] MEDS: METOPROLOL SUCCINATE (ER) 25 MG TAB.ER.24H PO SCH (17:45)
[2022-08-03 20:44] LABS: Glucose,Whole Blood 137 mg/dL (70-110)
[2022-08-03] MEDS: PRAMIPEXOLE 0.25 MG TAB PO SCH (21:07)
[2022-08-03] MEDS: PRAVASTATIN SODIUM 40 MG TAB PO SCH (21:09)
[2022-08-03] MEDS: MELATONIN 3 MG TABLET PO SCH (21:09)
[2022-08-03] MEDS: INSULIN DETEMIR (LEVEMIR) 100 UNIT/ML SYR SQ SCH (21:10)
[2022-08-04] MEDS: ONDANSETRON 4 MG/2 ML VIAL IVP PRN (00:13)
[2022-08-04 06:19] LABS: Glucose,Whole Blood 112 mg/dL (70-110)
[2022-08-04] MEDS: INSULIN ASPART (NovoLOG) 100 UNIT/ML VIAL SQ SCH ×4 (06:35→20:17)
[2022-08-04] MEDS: CHOLESTYRAMINE (WITH SUGAR) 4 GM PACKET PO SCH ×2 (08:01→20:16)
--- NOTE | 2022-08-04 08:06 | IR ---
EXAMINATION TYPE: IR cvc insert central tunneled DATE OF EXAM: 08/03/2022 COMPARISON: NONE HISTORY: Fluoroscopy time. Fluoroscopy was provided to the referring clinician.
[2022-08-04 08:23] LABS: Anisocytosis Slight; Basophils % (A) 1 %; Eosinophils % (A) 1 %; HCT 25.1 % (39.0-53.0); Hypochromasia Marked; Lymphocytes # (A) 0.4 k/uL (1.0-4.8); Lymphocytes % (A) 8 %; MCH 32.3 pg (25.0-35.0); MCHC 32.3 g/dL (31.0-37.0); Macrocytosis Slight; Mean Platelet Volume 8.2; Monocytes # (A) 0.4 k/uL (0-1.0); Monocytes % (A) 8 %; Neutrophils # (A) 3.8 k/uL (1.3-7.7); Neutrophils % (A) 80 %; Platelet Count 213 k/uL (150-450); Poikilocytosis Slight; RBC 2.51 m/uL (4.30-5.90); RDW 17.8 % (11.5-15.5); WBC 4.7 k/uL (3.8-10.6)
[2022-08-04 08:34] LABS: Albumin 3.6 g/dL (3.5-5.0); Calcium 9.5 mg/dL (8.4-10.2); Potassium 4.2 mmol/L (3.5-5.1); Total Bilirubin 0.4 mg/dL (0.2-1.3); Total Protein 5.5 g/dL (6.3-8.2)
[2022-08-04 08:50] LABS: HGB 8.1 gm/dL (13.0-17.5)
--- NOTE | 2022-08-04 09:26 | P.PN ---
Subjective Patient is seen in follow-up for chronic kidney disease. Started on hemodialysis 08/03/2022. Tolerated treatment well yesterday. Resting in bed. Denies chest pain or shortness of breath at this time. On nasal cannula. Hemoglobin improved post buttress region. No active bleeding. Vital signs are stable. General: Awake. No acute distress. HEENT: Head exam is unremarkable. On nasal cannula. LUNGS: Breath sounds decreased. HEART: Rate and Rhythm are regular. ABDOMEN: Soft, obese. EXTREMITITES: Trace edema. Objective - Vital Signs Vital signs: Vital Signs Temp 96.8 F L 08/04/22 04:00 Pulse 58 L 08/04/22 04:00 Resp 18 08/04/22 04:00 BP 118/75 08/04/22 04:00 Pulse Ox 96 08/04/22 08:51 FiO2 Intake & Output 08/03/22 08/04/22 08/04/22 18:59 06:59 18:59 Intake Total 1110 118 Output Total 1999 715 Balance -890 -715 118 Weight 82 kg Intake: Oral 0 118 Blood Product 310 Rc As-1 Unit 310 [id number] Hemodialysis 800 Output: Drainage 40 Right Chest 40 Urine 200 675 Hemodialysis 1800 Other: Voiding Method External Catheter External Catheter # Voids 1 1 # Bowel Movements 0 0 - Labs CBC & Chem 7: 08/04/22 07:44 08/04/22 07:44 Labs: Abnormal Lab Results - Last 24 Hours (Table) 08/03/22 08/03/22 08/03/22 Range/Units 11:53 11:53 12:12 WBC 3.5 L (3.8-10.6) k/uL RBC 2.13 L (4.30-5.90) m/uL Hgb 6.6 L* (13.0-17.5) gm/dL Hct 22.0 L (39.0-53.0) % MCV 103.1 H (80.0-100.0) fL MCHC 30.1 L (31.0-37.0) g/dL RDW 17.8 H (11.5-15.5) % Lymphocytes # 0.2 L (1.0-4.8) k/uL Sodium 135 L (137-145) mmol/L BUN 86 H (9-20) mg/dL Creatinine 5.81 H (0.66-1.25) mg/dL Glucose 119 H (74-99) mg/dL POC Glucose (mg/dL) 128 H (70-110) mg/dL Phosphorus 5.4 H (2.5-4.5) mg/dL Magnesium 2.4 H (1.6-2.3) mg/dL AST 16 L (17-59) U/L Total Protein 5.4 L (6.3-8.2) g/dL Crossmatch 08/03/22 08/03/22 08/03/22 Range/Units 12:59 16:49 20:42 WBC (3.8-10.6) k/uL RBC (4.30-5.90) m/uL Hgb (13.0-17.5) gm/dL Hct (39.0-53.0) % MCV (80.0-100.0) fL MCHC (31.0-37.0) g/dL RDW (11.5-15.5) % Lymphocytes # (1.0-4.8) k/uL Sodium (137-145) mmol/L BUN (9-20) mg/dL Creatinine (0.66-1.25) mg/dL Glucose (74-99) mg/dL POC Glucose (mg/dL) 119 H 137 H (70-110) mg/dL Phosphorus (2.5-4.5) mg/dL Magnesium (1.6-2.3) mg/dL AST (17-59) U/L Total Protein (6.3-8.2) g/dL Crossmatch See Detail 08/04/22 08/04/22 08/04/22 Range/Units 06:18 07:44 07:44 WBC (3.8-10.6) k/uL RBC 2.51 L (4.30-5.90) m/uL Hgb 8.1 L D (13.0-17.5) gm/dL Hct 25.1 L (39.0-53.0) % MCV (80.0-100.0) fL MCHC (31.0-37.0) g/dL RDW 17.8 H (11.5-15.5) % Lymphocytes # 0.4 L (1.0-4.8) k/uL Sodium (137-145) mmol/L BUN 60 H (9-20) mg/dL Creatinine 4.63 H (0.66-1.25) mg/dL Glucose (74-99) mg/dL POC Glucose (mg/dL) 112 H (70-110) mg/dL Phosphorus (2.5-4.5) mg/dL Magnesium (1.6-2.3) mg/dL AST (17-59) U/L Total Protein 5.5 L (6.3-8.2) g/dL Crossmatch Assessment and Plan Plan: Assessment: 1. Chronic kidney disease stage V secondary to nephrosclerosis/diabetic kidney disease. 2. Volume overload. Frequent admissions for volume overload. Improving with diuresis and ultrafiltration. 3. Hypertension with chronic kidney disease. Stable. 4. Diabetes mellitus. 5. Breast cancer status post right mastectomy with lymph node biopsy. 6. Anemia of chronic kidney disease. Iron replete. Status post blood transfusion this admission. No active bleeding. 7. Metabolic acidosis secondary to chronic kidney disease. On oral bicarbonate. Improved. 8. Mild hyperkalemia secondary to acute kidney injury and acidosis. Resolved. Plan: Second treatment of hemodialysis today. Change IV Lasix to oral torsemide 40 mg once daily. Phosphorus 5.4 dated 08/03/2022. Hold off on HELENA due to malignancy. vendor manager to set up outpatient hemodialysis. Hold hydralazine for systolic blood pressure less than 120.
--- NOTE | 2022-08-04 10:44 | P.PN ---
Subjective Progress Note Date: 08/04/22 CHIEF COMPLAINT: Right breast cancer HISTORY OF PRESENT ILLNESS: Surgical service following increase patient's right breast cancer and recent right mastectomy. Patient reports no pain. Denies any drainage from incision site. LUISITO drain with 60ml serosanguineous output in 24hours. Patient is receive a unit of blood yesterday for hemoglobin 6.6. Repeat hemoglobin 8.1. Patient started hemodialysis yesterday and is receiving hemodialysis again this morning. He is hospitalized for fluid overload and CKD. Afebrile. WBC 4.7 Hgb 8.1 platelets 213 sodium 137 potassium 4.2 creatinine 4.63 PHYSICAL EXAM: VITAL SIGNS: Reviewed. GENERAL: Well-developed in no acute distress. HEENT: No sclera icterus. Extraocular movements grossly intact. Moist buccal mucosa. Head is atraumatic, normocephalic. Chest: Chest wall right side incision site clean dry and intact. LUISITO drain with serous [place] as output. ABDOMEN: Soft. Nondistended. Nontender. NEUROLOGIC: Alert and oriented. Cranial nerves II through XII grossly intact. ASSESSMENT: 1. Right breast cancer status post right mastectomy with sentinel lymph node biopsy on 07/21/2022 2. Fluid overload and chronic kidney disease receiving hemodialysis PLAN: -Continue supportive care -Continue monitor LUISITO drain -Patient will require outpatient oncology follow-up Physician Raw Stock Machine Feeder note has been reviewed by physician. Signing provider agrees with the documented findings, assessment, and plan of care. I have personally seen and examined the patient, reviewed the LEGAL CONTRACTS SPECIALIST /PAs history, exam and MDM and agree with the assessment and plan as written. Based on total visit time, I have performed more than 50% of the visit. As above: Patient's drain output remains elevated. This should improve with dialysis. We'll follow. Objective - Vital Signs Vital signs: Vital Signs Temp 97.5 F L 08/04/22 08:00 Pulse 76 08/04/22 08:00 Resp 18 08/04/22 08:00 BP 125/63 08/04/22 08:00 Pulse Ox 96 08/04/22 08:51 FiO2 Intake & Output 08/03/22 08/04/22 08/04/22 18:59 06:59 18:59 Intake Total 1110 118 Output Total 1999 715 20 Balance -836 -728 98 Weight 82 kg Intake: Oral 0 118 Blood Product 310 Rc As-1 Unit 310 [id number] Hemodialysis 800 Output: Drainage 40 20 Right Chest 40 20 Urine 200 675 Hemodialysis 1800 Other: Voiding Method External Catheter External Catheter External Catheter # Voids 1 1 # Bowel Movements 0 0 - Labs CBC & Chem 7: 08/04/22 07:44 08/04/22 07:44 Labs: Abnormal Lab Results - Last 24 Hours (Table) 08/03/22 08/03/22 08/03/22 Range/Units 11:53 11:53 12:12 WBC 3.5 L (3.8-10.6) k/uL RBC 2.13 L (4.30-5.90) m/uL Hgb 6.6 L* (13.0-17.5) gm/dL Hct 22.0 L (39.0-53.0) % MCV 103.1 H (80.0-100.0) fL MCHC 30.1 L (31.0-37.0) g/dL RDW 17.8 H (11.5-15.5) % Lymphocytes # 0.2 L (1.0-4.8) k/uL Sodium 135 L (137-145) mmol/L BUN 86 H (9-20) mg/dL Creatinine 5.81 H (0.66-1.25) mg/dL Glucose 119 H (74-99) mg/dL POC Glucose (mg/dL) 128 H (70-110) mg/dL Phosphorus 5.4 H (2.5-4.5) mg/dL Magnesium 2.4 H (1.6-2.3) mg/dL AST 16 L (17-59) U/L Total Protein 5.4 L (6.3-8.2) g/dL Crossmatch 08/03/22 08/03/22 08/03/22 Range/Units 12:59 16:49 20:42 WBC (3.8-10.6) k/uL RBC (4.30-5.90) m/uL Hgb (13.0-17.5) gm/dL Hct (39.0-53.0) % MCV (80.0-100.0) fL MCHC (31.0-37.0) g/dL RDW (11.5-15.5) % Lymphocytes # (1.0-4.8) k/uL Sodium (137-145) mmol/L BUN (9-20) mg/dL Creatinine (0.66-1.25) mg/dL Glucose (74-99) mg/dL POC Glucose (mg/dL) 119 H 137 H (70-110) mg/dL Phosphorus (2.5-4.5) mg/dL Magnesium (1.6-2.3) mg/dL AST (17-59) U/L Total Protein (6.3-8.2) g/dL Crossmatch See Detail 08/04/22 08/04/22 08/04/22 Range/Units 06:18 07:44 07:44 WBC (3.8-10.6) k/uL RBC 2.51 L (4.30-5.90) m/uL Hgb 8.1 L D (13.0-17.5) gm/dL Hct 25.1 L (39.0-53.0) % MCV (80.0-100.0) fL MCHC (31.0-37.0) g/dL RDW 17.8 H (11.5-15.5) % Lymphocytes # 0.4 L (1.0-4.8) k/uL Sodium (137-145) mmol/L BUN 60 H (9-20) mg/dL Creatinine 4.63 H (0.66-1.25) mg/dL Glucose (74-99) mg/dL POC Glucose (mg/dL) 112 H (70-110) mg/dL Phosphorus (2.5-4.5) mg/dL Magnesium (1.6-2.3) mg/dL AST (17-59) U/L Total Protein 5.5 L (6.3-8.2) g/dL Crossmatch
[2022-08-04 11:50] LABS: Glucose,Whole Blood 96 mg/dL (70-110)
[2022-08-04] MEDS: FUROSEMIDE 10 MG/ML 10 ML VIAL IV SCH (11:51)
[2022-08-04] MEDS: FOLIC ACID 1 MG TAB PO SCH (12:18)
[2022-08-04] MEDS: FERROUS SULFATE 325 MG TAB PO SCH (12:18)
[2022-08-04] MEDS: TAMSULOSIN 0.4 MG CAP.ER.24H PO SCH ×2 (12:18→20:18)
[2022-08-04] MEDS: SODIUM BICARBONATE TAB 650 MG TAB PO SCH ×2 (12:18→20:18)
[2022-08-04] MEDS: allopurinoL 100 MG TAB PO SCH (12:18)
[2022-08-04] MEDS: CHOLECALCIFEROL 25 MCG (1000 IU) TABLET PO SCH (12:18)
[2022-08-04] MEDS: amLODIPine 5 MG TAB PO SCH (12:19)
[2022-08-04] MEDS: hydrALAZINE HCL 25 MG TAB PO SCH ×2 (12:19→20:17)
[2022-08-04] MEDS: AMIODARONE 100 MG TAB PO SCH (13:04)
[2022-08-04] MEDS: TORSEMIDE 20 MG TAB PO SCH (13:04)
[2022-08-04] MEDS: METOPROLOL SUCCINATE (ER) 25 MG TAB.ER.24H PO SCH (13:06)
--- NOTE | 2022-08-04 13:16 | P.PN ---
Subjective Progress Note Date: 08/04/22 This is a very pleasant 72-year-old male patient with a known history of hypertension, hyperlipidemia, myocardial infarction, obstructive sleep apnea, coronary artery disease with previous coronary artery bypass grafting and stent placement, atrial fibrillation/flutter, DVT, GERD, chronic kidney disease stage IV. He also was found to have right-sided breast cancer and had undergone a right mastectomy earlier this month and initiated on chemotherapy. He had also been treated for acute diastolic congestive heart failure with a right pleural effusion. He had been offered hemodialysis a month or 2 ago but had declined. He presented here to the emergency room yesterday with worsening shortness of breath 4 days prior to his arrival. He did decide to go ahead with dialysis catheter placement that is to be done on 08/03/2022 2 being on Eliquis. Chest x-ray does show persistent cardiomegaly and with small to moderate right side greater than left pleural effusions and moderate central vascular congestion. Stable right internal jugular Mediport catheter in place. Ventilation perfusion scan revealed very low probability for pulmonary embolism. White count 3.4. Hemoglobin 7.8. INR 1.1. Sodium 137. Potassium 5.3. Bicarb 17. BUN 89. Creatinine 4.87. Glucose 156. Hunt virus by PCR not detected. He is seen today in consultation on the regular medical floor. He is currently resting flat in bed. Awake and alert in no acute distress. Maintaining good O2 saturations in the 90s on 2 L/m per nasal cannula. He's been initiated on Lasix 80 mg IV every 12 hours. Eliquis remains on hold. Progress note dated 08/02/2022. The patient is resting comfortably in room 365. He was seen yesterday in consultation. He came in with shortness of breath, thought to be related to fluid overload. Today, he's feeling about the same as did yesterday. No better or no worse. White count 4.2, hemoglobin 7, hematocrit 22.1, and platelet count 238,000. Sodium 137, potassium 4.9, chlorides 105, CO2 23, BUN 82, and creatinine 5.41. The patient has decided to go ahead and proceed with h emodialysis. Progress note dated 08/03/2022. The patient is again seen at 365. The patient got back to the room recently, having had a hemodialysis catheter placed. The patient may have his first hemodialysis session later today. Clinically he is stable. He is on 3 L of oxygen. The patient is not getting any IV fluids. States that his breathing is about the same. He was admitted with a diagnosis of shortness of breath, secondary to fluid overload, presumably secondary to his worsening renal function. White count 3.5, hemoglobin 6.6, hematocrit 22, and platelet count 207,000. Sodium 135, potassium 4.7, chlorides 105, CO2 22, anion gap 8, BUN 86, creatinine 5.81. 08/04/2022, I'm seeing the patient for a follow-up. Dialysis catheter is in place and the patient has already undergone 2 sessions of hemodialysis, yesterday and today. yesterday, total amount of fluid removed was 1.8 L. The patient otherwise is resting comfortably in bed. No new complaints. He is bedbound. He is still edema in lower oximetry is bilaterally. His undergone previous bypass surgery and previous coronary stents. She has chronic ejaculation/flutter along with previous history of DVTs and chronic kidney disease. He has hypertension and hyperlipidemia, previous [place], obstructive sleep apnea, and previous history of breast cancer with mastectomy and chemotherapy. His white cell count today's of 4.7 with a hemoglobin of 8.1 and he was given a unit of packed RBC and a platelet count is at 213. Sodium is at 137 with a potassium level of 4.2 and bicarb is at 27. BUN is at 60 with a creatinine of 4.6 per chest x-ray from yesterday was showing improvement in the volume status and the right-sided pleural effusion. Objective - Vital Signs Vital signs: Vital Signs Temp 97.5 F L 08/04/22 08:00 Pulse 76 08/04/22 08:00 Resp 18 08/04/22 08:00 BP 125/63 08/04/22 08:00 Pulse Ox 96 08/04/22 08:51 FiO2 Intake & Output 08/03/22 08/04/22 08/04/22 18:59 06:59 18:59 Intake Total 1110 118 Output Total 1999 715 20 Balance -340 -549 98 Weight 82 kg Intake: Oral 0 118 Blood Product 310 Rc As-1 Unit 310 [id number] Hemodialysis 800 Output: Drainage 40 20 Right Chest 40 20 Urine 200 675 Hemodialysis 1800 Other: Voiding Method External Catheter External Catheter External Catheter # Voids 1 1 # Bowel Movements 0 0 - Exam No acute distress, oriented 3. Currently on 3 L of oxygen. No use of accessory muscles, or conversational dyspnea. HEENT examination is grossly unremarkable. Neck supple. Full range of motion. No adenopathy thyromegaly or neck vein distention. Cardiovascular examination reveals regular rhythm rate. S1-S2 normal. No S3 or S4. No discernible murmur noted. Heart rate 58 bpm. Lungs reveal bibasilar crackles. No wheezes or rhonchi. Breath sounds equal bilaterally. Saturations are 95%. Abdomen soft bowel sounds are heard. No masses or tenderness. Extremities are intact. No cyanosis or clubbing. Trace edema is noted. Skin reveals some chronic venous stasis changes. Neurologic examination is brief but nonfocal. - Labs CBC & Chem 7: 08/04/22 07:44 08/04/22 07:44 Labs: Abnormal Lab Results - Last 24 Hours (Table) 08/03/22 08/03/22 08/03/22 Range/Units 12:59 16:49 20:42 RBC (4.30-5.90) m/uL Hgb (13.0-17.5) gm/dL Hct (39.0-53.0) % RDW (11.5-15.5) % Lymphocytes # (1.0-4.8) k/uL BUN (9-20) mg/dL Creatinine (0.66-1.25) mg/dL POC Glucose (mg/dL) 119 H 137 H (70-110) mg/dL Total Protein (6.3-8.2) g/dL Crossmatch See Detail 08/04/22 08/04/22 08/04/22 Range/Units 06:18 07:44 07:44 RBC 2.51 L (4.30-5.90) m/uL Hgb 8.1 L D (13.0-17.5) gm/dL Hct 25.1 L (39.0-53.0) % RDW 17.8 H (11.5-15.5) % Lymphocytes # 0.4 L (1.0-4.8) k/uL BUN 60 H (9-20) mg/dL Creatinine 4.63 H (0.66-1.25) mg/dL POC Glucose (mg/dL) 112 H (70-110) mg/dL Total Protein 5.5 L (6.3-8.2) g/dL Crossmatch Assessment and Plan Plan: Acute hypoxemic respiratory failure secondary to fluid volume overload from diastolic congestive heart failure. Clinically improving and the patient is currently on 3 L of oxygen by nasal cannula Chronic kidney disease stage IV, now agreeable to hemodialysis and plans for permacath placement on 08/03/2022. History of atrial fibrillation, anticoagulated with Eliquis, currently on hold. History of DVT, treated with Eliquis. Right-sided breast cancer status post mastectomy on 07/21/2022, receiving chemotherapy. Hypertension. Diabetes mellitus. Hyperlipidemia. History of gout. History of coronary artery disease with previous coronary bypass grafting as well as previous stent placement. Benign prostatic hyperplasia. Diabetic polyneuropathy. History of meningioma with left-sided weakness. History of anemia from chronic kidney disease. Plan Chest x-ray wasImproving from yesterday continue hemodialysis All of his outpatient medications have been resumed Supportive care Need to restart anticoagulation at the later stage We'll follow
[2022-08-04 16:25] LABS: Glucose,Whole Blood 139 mg/dL (70-110)
[2022-08-04 20:13] LABS: Glucose,Whole Blood 173 mg/dL (70-110)
[2022-08-04] MEDS: INSULIN DETEMIR (LEVEMIR) 100 UNIT/ML SYR SQ SCH (20:17)
[2022-08-04] MEDS: PRAVASTATIN SODIUM 40 MG TAB PO SCH (20:18)
[2022-08-04] MEDS: MELATONIN 3 MG TABLET PO SCH (20:18)
[2022-08-04] MEDS: PRAMIPEXOLE 0.25 MG TAB PO SCH (20:18)
[2022-08-05 06:16] LABS: Glucose,Whole Blood 126 mg/dL (70-110)
[2022-08-05] MEDS: INSULIN ASPART (NovoLOG) 100 UNIT/ML VIAL SQ SCH ×4 (06:42→20:12)
[2022-08-05 08:22] LABS: Anisocytosis Slight; Basophils % (A) 0 %; Eosinophils % (A) 1 %; HCT 22.3 % (39.0-53.0); Hypochromasia Marked; Lymphocytes # (A) 0.3 k/uL (1.0-4.8); Lymphocytes % (A) 7 %; MCH 30.8 pg (25.0-35.0); MCHC 30.8 g/dL (31.0-37.0); MCV 100.2 fL (80.0-100.0); Macrocytosis Slight; Mean Platelet Volume 8.5; Monocytes # (A) 0.3 k/uL (0-1.0); Monocytes % (A) 8 %; Neutrophils # (A) 3.2 k/uL (1.3-7.7); Neutrophils % (A) 81 %; Platelet Count 189 k/uL (150-450); Poikilocytosis Slight; RBC 2.23 m/uL (4.30-5.90); RDW 18.5 % (11.5-15.5)
[2022-08-05 08:29] LABS: Albumin 3.4 g/dL (3.5-5.0); Calcium 9.5 mg/dL (8.4-10.2); Potassium 4.5 mmol/L (3.5-5.1); Total Bilirubin 0.3 mg/dL (0.2-1.3); Total Protein 5.2 g/dL (6.3-8.2)
[2022-08-05 08:35] LABS: HGB 6.9 gm/dL (13.0-17.5)
[2022-08-05] MEDS: CHOLESTYRAMINE (WITH SUGAR) 4 GM PACKET PO SCH ×2 (08:38→20:12)
[2022-08-05] MEDS: METOPROLOL SUCCINATE (ER) 25 MG TAB.ER.24H PO SCH (08:55)
[2022-08-05] MEDS: SODIUM BICARBONATE TAB 650 MG TAB PO SCH ×2 (08:55→20:29)
[2022-08-05] MEDS: CHOLECALCIFEROL 25 MCG (1000 IU) TABLET PO SCH (08:55)
[2022-08-05] MEDS: TAMSULOSIN 0.4 MG CAP.ER.24H PO SCH ×2 (08:55→20:28)
[2022-08-05] MEDS: allopurinoL 100 MG TAB PO SCH (08:55)
[2022-08-05] MEDS: FOLIC ACID 1 MG TAB PO SCH (08:55)
[2022-08-05] MEDS: FERROUS SULFATE 325 MG TAB PO SCH (08:55)
[2022-08-05] MEDS: hydrALAZINE HCL 25 MG TAB PO SCH ×2 (08:56→20:28)
[2022-08-05] MEDS: TORSEMIDE 20 MG TAB PO SCH (08:56)
[2022-08-05] MEDS: AMIODARONE 100 MG TAB PO SCH (08:56)
[2022-08-05] MEDS: amLODIPine 5 MG TAB PO SCH (08:56)
--- NOTE | 2022-08-05 10:38 | P.PN ---
Subjective Patient is seen in follow-up for chronic kidney disease. Started on hemodialysis 08/03/2022. Tolerated treatment well yesterday was 1.4 L ultrafil tration. Resting in bed. Denies chest pain or shortness of breath at this time. On nasal cannula. Hemoglobin 6.9 today. No active bleeding. Vital signs are stable. General: Awake. No acute distress. HEENT: Head exam is unremarkable. On nasal cannula. LUNGS: Breath sounds decreased. HEART: Rate and Rhythm are regular. ABDOMEN: Soft, obese. EXTREMITITES: Trace edema. Objective - Vital Signs Vital signs: Vital Signs Temp 98.2 F 08/05/22 10:20 Pulse 69 08/05/22 10:20 Resp 18 08/05/22 10:20 BP 128/76 08/05/22 10:20 Pulse Ox 98 08/05/22 10:20 FiO2 Intake & Output 08/04/22 08/05/22 08/05/22 18:59 06:59 18:59 Intake Total 518 240 Output Total 1420 320 400 Balance -902 -320 -160 Weight 83.5 kg Intake: Oral 118 240 Blood Product 0 Rc As-1 Unit 0 [id number] Hemodialysis 400 Output: Drainage 20 20 Right Chest 20 20 Urine 300 400 Hemodialysis 1400 Other: Voiding Method External Catheter External Catheter External Catheter - Labs CBC & Chem 7: 08/05/22 07:52 08/05/22 07:52 Labs: Abnormal Lab Results - Last 24 Hours (Table) 08/03/22 08/04/22 08/04/22 Range/Units 12:59 16:23 20:11 RBC (4.30-5.90) m/uL Hgb (13.0-17.5) gm/dL Hct (39.0-53.0) % MCV (80.0-100.0) fL MCHC (31.0-37.0) g/dL RDW (11.5-15.5) % Lymphocytes # (1.0-4.8) k/uL BUN (9-20) mg/dL Creatinine (0.66-1.25) mg/dL Glucose (74-99) mg/dL POC Glucose (mg/dL) 139 H 173 H (70-110) mg/dL Total Protein (6.3-8.2) g/dL Albumin (3.5-5.0) g/dL Crossmatch See Detail 08/05/22 08/05/22 08/05/22 Range/Units 06:14 07:52 07:52 RBC 2.23 L (4.30-5.90) m/uL Hgb 6.9 L* (13.0-17.5) gm/dL Hct 22.3 L (39.0-53.0) % MCV 100.2 H (80.0-100.0) fL MCHC 30.8 L (31.0-37.0) g/dL RDW 18.5 H (11.5-15.5) % Lymphocytes # 0.3 L (1.0-4.8) k/uL BUN 43 H (9-20) mg/dL Creatinine 3.36 H (0.66-1.25) mg/dL Glucose 112 H (74-99) mg/dL POC Glucose (mg/dL) 126 H (70-110) mg/dL Total Protein 5.2 L (6.3-8.2) g/dL Albumin 3.4 L (3.5-5.0) g/dL Crossmatch Assessment and Plan Plan: Assessment: 1. Chronic kidney disease stage V secondary to nephrosclerosis/diabetic kidney disease. Started on hemodialysis 08/03/2022 via permacath. 2. Volume overload. Frequent admissions for volume overload. Improving with diuresis and ultrafiltration. 3. Hypertension with chronic kidney disease. Stable. 4. Diabetes mellitus. 5. Breast cancer status post right mastectomy with lymph node biopsy. 6. Anemia of chronic kidney disease. Iron replete. Status post blood transfusion this admission. No active bleeding. Hemoglobin 6.9 today. 7. Metabolic acidosis secondary to chronic kidney disease. On oral bicarbonate. Improved. 8. Mild hyperkalemia secondary to acute kidney injury and acidosis. Resolved. Plan: Third treatment of hemodialysis tomorrow. Maintain torsemide 40 mg once daily. Phosphorus 5.4 dated 08/03/2022. Hold off on HELENA due to malignancy - will start outpatient once cleared by oncology. Scheduled to receive a unit of blood today. racing manager to set up outpatient hemodialysis. Hold hydralazine for systolic blood pressure less than 120.
[2022-08-05] MEDS: PANTOPRAZOLE 40 MG/10 ML VIAL IVP SCH ×2 (10:58→20:26)
[2022-08-05 11:36] LABS: Glucose,Whole Blood 164 mg/dL (70-110)
--- NOTE | 2022-08-05 11:55 | P.PN ---
Subjective Progress Note Date: 08/05/22 CHIEF COMPLAINT: Right breast cancer HISTORY OF PRESENT ILLNESS: Surgical service following regarding patient's right breast cancer and recent right mastectomy. Patient reports no pain. Denies any drainage from incision site. LUISITO drain with 50ml serosanguineous output in 24hours. Patient's hemoglobin dropped from 8.1-6.9. He is receiving another unit of blood. Per nursing staff patient has been having black stools over the last 3 days. Patient has been taking oral iron. He denies any abdominal pain. Denies any prior EGD. He does report having a colonoscopy in the past with colon polyps. Afebrile. WBC is 4.0 hemoglobin 6.9 and platelets 189 sodium 138 potassium 4.5 creatinine 3.36. Patient's Eliquis is on hold PHYSICAL EXAM: VITAL SIGNS: Reviewed. GENERAL: Well-developed in no acute distress. HEENT: No sclera icterus. Extraocular movements grossly intact. Moist buccal mucosa. Head is atraumatic, normocephalic. Chest: Chest wall right side incision site clean dry and intact. LUISITO drain with serosanguineous output. ABDOMEN: Soft. Nondistended. Nontender. NEUROLOGIC: Alert and oriented. Cranial nerves II through XII grossly intact. ASSESSMENT: 1. Right breast cancer status post right mastectomy with sentinel lymph node biopsy on 07/21/2022 2. Fluid overload and chronic kidney disease receiving hemodialysis 3. Anemia with black stools PLAN: -Further recommendations forthcoming per surgeon -Continue to monitor for any signs or symptoms of bleeding -Continue to monitor hemoglobin -Agree with blood transfusion -Continue to hold Eliquis -Continue supportive care -Continue monitor LUISITO drain Physician [facility] Laboratory Technician note has been reviewed by physician. Signing provider agrees with the documented findings, assessment, and plan of care. I have personally seen and examined the patient, reviewed the OUTPATIENT PHYSICAL THERAPIST ASSISTANT /PAs history, exam and MDM and agree with the assessment and plan as written. Based on total visit time, I have performed more than 50% of the visit. As above: Patient with intermittent anemia recently. Black colored stools although patient taking oral iron replacement. No previous EGD. Eloquis has been placed on hold. Discussed options of upper and lower endoscopy with patient. Patient feels quite weak at this time and I would favor observation unless evidence of bleeding becomes more obvious. Certainly at some point upper and lower endoscopy would be advised. We'll follow. Objective - Vital Signs Vital signs: Vital Signs Temp 98.6 F 08/05/22 10:55 Pulse 65 08/05/22 11:24 Resp 18 08/05/22 11:24 BP 124/78 08/05/22 11:24 Pulse Ox 97 08/05/22 11:24 FiO2 Intake & Output 08/04/22 08/05/22 08/05/22 18:59 06:59 18:59 Intake Total 518 240 Output Total 1420 320 400 Balance -902 -320 -160 Weight 83.5 kg Intake: Oral 118 240 Blood Product 0 Rc As-1 Unit 0 [id number] Hemodialysis 400 Output: Drainage 20 20 Right Chest 20 20 Urine 300 400 Hemodialysis 1400 Other: Voiding Method External Catheter External Catheter External Catheter - Labs CBC & Chem 7: 08/05/22 07:52 08/05/22 07:52 Labs: Abnormal Lab Results - Last 24 Hours (Table) 08/03/22 08/04/22 08/04/22 Range/Units 12:59 16:23 20:11 RBC (4.30-5.90) m/uL Hgb (13.0-17.5) gm/dL Hct (39.0-53.0) % MCV (80.0-100.0) fL MCHC (31.0-37.0) g/dL RDW (11.5-15.5) % Lymphocytes # (1.0-4.8) k/uL BUN (9-20) mg/dL Creatinine (0.66-1.25) mg/dL Glucose (74-99) mg/dL POC Glucose (mg/dL) 139 H 173 H (70-110) mg/dL Total Protein (6.3-8.2) g/dL Albumin (3.5-5.0) g/dL Crossmatch See Detail 08/05/22 08/05/22 08/05/22 Range/Units 06:14 07:52 07:52 RBC 2.23 L (4.30-5.90) m/uL Hgb 6.9 L* (13.0-17.5) gm/dL Hct 22.3 L (39.0-53.0) % MCV 100.2 H (80.0-100.0) fL MCHC 30.8 L (31.0-37.0) g/dL RDW 18.5 H (11.5-15.5) % Lymphocytes # 0.3 L (1.0-4.8) k/uL BUN 43 H (9-20) mg/dL Creatinine 3.36 H (0.66-1.25) mg/dL Glucose 112 H (74-99) mg/dL POC Glucose (mg/dL) 126 H (70-110) mg/dL Total Protein 5.2 L (6.3-8.2) g/dL Albumin 3.4 L (3.5-5.0) g/dL Crossmatch 08/05/22 Range/Units 11:34 RBC (4.30-5.90) m/uL Hgb (13.0-17.5) gm/dL Hct (39.0-53.0) % MCV (80.0-100.0) fL MCHC (31.0-37.0) g/dL RDW (11.5-15.5) % Lymphocytes # (1.0-4.8) k/uL BUN (9-20) mg/dL Creatinine (0.66-1.25) mg/dL Glucose (74-99) mg/dL POC Glucose (mg/dL) 164 H (70-110) mg/dL Total Protein (6.3-8.2) g/dL Albumin (3.5-5.0) g/dL Crossmatch
[2022-08-05 13:07] VITALS: BMI 25.7
--- NOTE | 2022-08-05 15:41 | P.PN ---
Subjective Progress Note Date: 08/05/22 This is a very pleasant 72-year-old male patient with a known history of hypertension, hyperlipidemia, myocardial infarction, obstructive sleep apnea, coronary artery disease with previous coronary artery bypass grafting and stent placement, atrial fibrillation/flutter, DVT, GERD, chronic kidney disease stage IV. He also was found to have right-sided breast cancer and had undergone a right mastectomy earlier this month and initiated on chemotherapy. He had also been treated for acute diastolic congestive heart failure with a right pleural effusion. He had been offered hemodialysis a month or 2 ago but had declined. He presented here to the emergency room yesterday with worsening shortness of breath 4 days prior to his arrival. He did decide to go ahead with dialysis catheter placement that is to be done on 08/03/2022 2 being on Eliquis. Chest x-ray does show persistent cardiomegaly and with small to moderate right side greater than left pleural effusions and moderate central vascular congestion. Stable right internal jugular Mediport catheter in place. Ventilation perfusion scan revealed very low probability for pulmonary embolism. White count 3.4. Hemoglobin 7.8. INR 1.1. Sodium 137. Potassium 5.3. Bicarb 17. BUN 89. Creatinine 4.87. Glucose 156. Hunt virus by PCR not detected. He is seen today in consultation on the regular medical floor. He is currently resting flat in bed. Awake and alert in no acute distress. Maintaining good O2 saturations in the 90s on 2 L/m per nasal cannula. He's been initiated on Lasix 80 mg IV every 12 hours. Eliquis remains on hold. Progress note dated 08/02/2022. The patient is resting comfortably in room 365. He was seen yesterday in consultation. He came in with shortness of breath, thought to be related to fluid overload. Today, he's feeling about the same as did yesterday. No better or no worse. White count 4.2, hemoglobin 7, hematocrit 22.1, and platelet count 238,000. Sodium 137, potassium 4.9, chlorides 105, CO2 23, BUN 82, and creatinine 5.41. The patient has decided to go ahead and proceed with h emodialysis. Progress note dated 08/03/2022. The patient is again seen at 365. The patient got back to the room recently, having had a hemodialysis catheter placed. The patient may have his first hemodialysis session later today. Clinically he is stable. He is on 3 L of oxygen. The patient is not getting any IV fluids. States that his breathing is about the same. He was admitted with a diagnosis of shortness of breath, secondary to fluid overload, presumably secondary to his worsening renal function. White count 3.5, hemoglobin 6.6, hematocrit 22, and platelet count 207,000. Sodium 135, potassium 4.7, chlorides 105, CO2 22, anion gap 8, BUN 86, creatinine 5.81. 08/04/2022, I'm seeing the patient for a follow-up. Dialysis catheter is in place and the patient has already undergone 2 sessions of hemodialysis, yesterday and today. yesterday, total amount of fluid removed was 1.8 L. The patient otherwise is resting comfortably in bed. No new complaints. He is bedbound. He is still edema in lower oximetry is bilaterally. His undergone previous bypass surgery and previous coronary stents. She has chronic ejaculation/flutter along with previous history of DVTs and chronic kidney disease. He has hypertension and hyperlipidemia, previous [place], obstructive sleep apnea, and previous history of breast cancer with mastectomy and chemotherapy. His white cell count today's of 4.7 with a hemoglobin of 8.1 and he was given a unit of packed RBC and a platelet count is at 213. Sodium is at 137 with a potassium level of 4.2 and bicarb is at 27. BUN is at 60 with a creatinine of 4.6 per chest x-ray from yesterday was showing improvement in the volume status and the right-sided pleural effusion. On 08/05/2022, the patient is being seen for a follow-up. Note that the patient is comfortable on today's evaluation. He underwent hemodialysis yesterday. No hemodialysis for today and he will have another session for tomorrow. The patient has been essentially, comfortable. He is currently on 2 L of oxygen by nasal cannula with a pulse ox of 96%. No chest pain. No cough or sputum production. On his blood work, the patient's hemoglobin today was at 6.9. The patient will be given a unit of packed RBC. There is no evidence of any GI bleed. The white suppositive 4 with a hemoglobin of 189, Bun is 43 with a creatinine of 3.3 and a sodium levels of 138. No major changes in his medication. The patient remains on Levemir insulin 30 units Objective - Vital Signs Vital signs: Vital Signs Temp 98.2 F 08/05/22 10:20 Pulse 69 08/05/22 10:20 Resp 18 08/05/22 10:20 BP 128/76 08/05/22 10:20 Pulse Ox 98 08/05/22 10:20 FiO2 Intake & Output 08/04/22 08/05/22 08/05/22 18:59 06:59 18:59 Intake Total 518 240 Output Total 1420 320 400 Balance -902 -320 -160 Weight 83.5 kg Intake: Oral 118 240 Blood Product 0 Rc As-1 Unit 0 [id number] Hemodialysis 400 Output: Drainage 20 20 Right Chest 20 20 Urine 300 400 Hemodialysis 1400 Other: Voiding Method External Catheter External Catheter External Catheter - Exam No acute distress, oriented 3. Currently on 2 L of oxygen. No use of accessory muscles, or conversational dyspnea. HEENT examination is grossly unremarkable. Neck supple. Full range of motion. No adenopathy thyromegaly or neck vein distention. Cardiovascular examination reveals regular rhythm rate. S1-S2 normal. No S3 or S4. No discernible murmur noted. Heart rate 58 bpm. Lungs reveal bibasilar crackles. No wheezes or rhonchi. Breath sounds equal bilaterally. Saturations are 95%. Abdomen soft bowel sounds are heard. No masses or tenderness. Extremities are intact. No cyanosis or clubbing. Trace edema is noted. Skin reveals some chronic venous stasis changes. Neurologic examination is brief but nonfocal. - Labs CBC & Chem 7: 08/05/22 07:52 08/05/22 07:52 Labs: Abnormal Lab Results - Last 24 Hours (Table) 08/03/22 08/04/22 08/04/22 Range/Units 12:59 16:23 20:11 RBC (4.30-5.90) m/uL Hgb (13.0-17.5) gm/dL Hct (39.0-53.0) % MCV (80.0-100.0) fL MCHC (31.0-37.0) g/dL RDW (11.5-15.5) % Lymphocytes # (1.0-4.8) k/uL BUN (9-20) mg/dL Creatinine (0.66-1.25) mg/dL Glucose (74-99) mg/dL POC Glucose (mg/dL) 139 H 173 H (70-110) mg/dL Total Protein (6.3-8.2) g/dL Albumin (3.5-5.0) g/dL Crossmatch See Detail 08/05/22 08/05/22 08/05/22 Range/Units 06:14 07:52 07:52 RBC 2.23 L (4.30-5.90) m/uL Hgb 6.9 L* (13.0-17.5) gm/dL Hct 22.3 L (39.0-53.0) % MCV 100.2 H (80.0-100.0) fL MCHC 30.8 L (31.0-37.0) g/dL RDW 18.5 H (11.5-15.5) % Lymphocytes # 0.3 L (1.0-4.8) k/uL BUN 43 H (9-20) mg/dL Creatinine 3.36 H (0.66-1.25) mg/dL Glucose 112 H (74-99) mg/dL POC Glucose (mg/dL) 126 H (70-110) mg/dL Total Protein 5.2 L (6.3-8.2) g/dL Albumin 3.4 L (3.5-5.0) g/dL Crossmatch Assessment and Plan Plan: Acute hypoxemic respiratory failure secondary to fluid volume overload from diastolic congestive heart failure. Clinically improving and the patient is currently on 2 L of oxygen by nasal cannula Chronic kidney disease stage IV, now agreeable to hemodialysis and plans for permacath placement on 08/03/2022. History of atrial fibrillation, anticoagulated with Eliquis, currently on hold. History of DVT, treated with Eliquis. Right-sided breast cancer status post mastectomy on 07/21/2022, receiving chemotherapy. Hypertension. Diabetes mellitus. Hyperlipidemia. History of gout. History of coronary artery disease with previous coronary bypass grafting as well as previous stent placement. Benign prostatic hyperplasia. Diabetic polyneuropathy. History of meningioma with left-sided weakness. History of anemia from chronic kidney disease. Plan Chest x-ray was Improving from yesterday continue hemodialysis All of his outpatient medications have been resumed Supportive care Need to restart anticoagulation at the later stage We'll follow
[2022-08-05 16:20] LABS: Glucose,Whole Blood 152 mg/dL (70-110)
[2022-08-05 20:07] LABS: Glucose,Whole Blood 145 mg/dL (70-110)
[2022-08-05] MEDS: INSULIN DETEMIR (LEVEMIR) 100 UNIT/ML SYR SQ SCH (20:13)
[2022-08-05] MEDS: ACETAMINOPHEN TAB 325 MG TAB PO PRN (20:26)
[2022-08-05] MEDS: MELATONIN 3 MG TABLET PO SCH (20:26)
[2022-08-05] MEDS: PRAVASTATIN SODIUM 40 MG TAB PO SCH (20:28)
[2022-08-05] MEDS: PRAMIPEXOLE 0.25 MG TAB PO SCH (20:28)
[2022-08-06 06:04] LABS: Glucose,Whole Blood 138 mg/dL (70-110)
[2022-08-06] MEDS: INSULIN ASPART (NovoLOG) 100 UNIT/ML VIAL SQ SCH ×4 (06:05→20:12)
[2022-08-06] MEDS: PANTOPRAZOLE 40 MG/10 ML VIAL IVP SCH ×2 (10:27→20:12)
--- NOTE | 2022-08-06 10:37 | P.PN ---
Subjective Patient is seen in follow-up for chronic kidney disease. Started on hemodialysis 08/03/2022. Resting in bed. Denies chest pain or shortness of br eath at this time. On nasal cannula. Received unit of blood yesterday. No active bleeding. Hemodynamically stable. Vital signs are stable. General: Awake. No acute distress. HEENT: Head exam is unremarkable. On nasal cannula. LUNGS: Breath sounds decreased. HEART: Rate and Rhythm are regular. ABDOMEN: Soft, obese. EXTREMITITES: Trace edema. Objective - Vital Signs Vital signs: Vital Signs Temp 97.7 F 08/06/22 04:00 Pulse 64 08/06/22 04:00 Resp 17 08/06/22 04:00 BP 145/72 08/06/22 04:00 Pulse Ox 95 08/06/22 08:48 FiO2 Intake & Output 08/05/22 08/06/22 08/06/22 18:59 06:59 18:59 Intake Total 1266 360 118 Output Total 400 205 Balance 866 155 118 Weight 83.5 kg 96.5 kg Intake: Oral 956 360 118 Blood Product 310 Rc As-1 Unit 310 [id number] Output: Drainage 5 Right Chest 5 Urine 400 200 Other: Voiding Method External Catheter External Catheter - Labs CBC & Chem 7: 08/05/22 07:52 08/05/22 07:52 Labs: Abnormal Lab Results - Last 24 Hours (Table) 08/03/22 08/05/22 08/05/22 Range/Units 12:59 11:34 16:18 POC Glucose (mg/dL) 164 H 152 H (70-110) mg/dL Crossmatch See Detail 08/05/22 08/06/22 Range/Units 20:05 06:03 POC Glucose (mg/dL) 145 H 138 H (70-110) mg/dL Crossmatch Assessment and Plan Plan: Assessment: 1. Chronic kidney disease stage V secondary to nephrosclerosis/diabetic kidney disease. Started on hemodialysis 08/03/2022 via permacath. 2. Volume overload. Frequent admissions for volume overload. Improving with diuresis and ultrafiltration. 3. Hypertension with chronic kidney disease. Stable. 4. Diabetes mellitus. 5. Breast cancer status post right mastectomy with lymph node biopsy. 6. Anemia of chronic kidney disease. Iron replete. Status post blood transfusion this admission. No active bleeding. 7. Metabolic acidosis secondary to chronic kidney disease. On oral bicarbonate. Improved. 8. Mild hyperkalemia secondary to acute kidney injury and acidosis. Resolved. Plan: Hemodialysis today. He will be maintained on Thursday schedule outpatient. Maintain torsemide 40 mg once daily. Phosphorus 5.4 dated 08/03/2022. Hold off on HELENA due to malignancy - will start outpatient once cleared by oncology. Hold hydralazine for systolic blood pressure less than 120.
--- NOTE | 2022-08-06 11:13 | P.PN ---
Subjective Progress Note Date: 08/06/22 Principal diagnosis: Right breast cancer Patient doing well today. Still feels fatigued. Drain output is diminished. Beginning dialysis now. Hemoglobin is pending. No stools. Objective - Vital Signs Vital signs: Vital Signs Temp 97.7 F 08/06/22 04:00 Pulse 64 08/06/22 04:00 Resp 17 08/06/22 04:00 BP 145/72 08/06/22 04:00 Pulse Ox 95 08/06/22 08:48 FiO2 Intake & Output 08/05/22 08/06/22 08/06/22 18:59 06:59 18:59 Intake Total 1266 360 118 Output Total 400 205 Balance 866 155 118 Weight 83.5 kg 96.5 kg Intake: Oral 956 360 118 Blood Product 310 Rc As-1 Unit 310 [id number] Output: Drainage 5 Right Chest 5 Urine 400 200 Other: Voiding Method External Catheter External Catheter - Exam Right chest wall incision clean and dry - Labs CBC & Chem 7: 08/05/22 07:52 08/05/22 07:52 Labs: Abnormal Lab Results - Last 24 Hours (Table) 08/03/22 08/05/22 08/05/22 Range/Units 12:59 11:34 16:18 POC Glucose (mg/dL) 164 H 152 H (70-110) mg/dL Crossmatch See Detail 08/05/22 08/06/22 Range/Units 20:05 06:03 POC Glucose (mg/dL) 145 H 138 H (70-110) mg/dL Crossmatch Assessment and Plan (1) Cancer of right male breast Narrative/Plan: 72-year-old male with right breast cancer status post right simple mastectomy. Doing well at this time. Monitor hemoglobin. Monitor drain output. We'll yvan lew. Current Visit: No Status: Acute Priority: Medium Code(s): C50.921 - MALIGNANT NEOPLASM OF UNSPECIFIED SITE OF RIGHT MALE BREAST SNOMED Code(s): 688483824
[2022-08-06 11:50] LABS: Glucose,Whole Blood 180 mg/dL (70-110)
[2022-08-06 12:10] LABS: Anisocytosis Slight; HCT 23.7 % (39.0-53.0); HGB 7.5 gm/dL (13.0-17.5); Hypochromasia Marked; MCH 31.3 pg (25.0-35.0); MCHC 31.5 g/dL (31.0-37.0); MCV 99.4 fL (80.0-100.0); Macrocytosis Slight; Mean Platelet Volume 8.6; Platelet Count 168 k/uL (150-450); RBC 2.38 m/uL (4.30-5.90); RDW 18.5 % (11.5-15.5); WBC 4.6 k/uL (3.8-10.6)
[2022-08-06] MEDS: CHOLESTYRAMINE (WITH SUGAR) 4 GM PACKET PO SCH ×2 (15:07→19:32)
[2022-08-06] MEDS: hydrALAZINE HCL 25 MG TAB PO SCH ×2 (15:53→20:12)
[2022-08-06] MEDS: SODIUM BICARBONATE TAB 650 MG TAB PO SCH ×2 (15:54→20:12)
[2022-08-06] MEDS: TAMSULOSIN 0.4 MG CAP.ER.24H PO SCH ×2 (15:54→20:12)
[2022-08-06] MEDS: allopurinoL 100 MG TAB PO SCH (15:56)
[2022-08-06 16:34] LABS: Glucose,Whole Blood 126 mg/dL (70-110)
--- NOTE | 2022-08-06 17:09 | P.PN ---
Subjective Progress Note Date: 08/06/22 This is a very pleasant 72-year-old male patient with a known history of hypertension, hyperlipidemia, myocardial infarction, obstructive sleep apnea, coronary artery disease with previous coronary artery bypass grafting and stent placement, atrial fibrillation/flutter, DVT, GERD, chronic kidney disease stage IV. He also was found to have right-sided breast cancer and had undergone a right mastectomy earlier this month and initiated on chemotherapy. He had also been treated for acute diastolic congestive heart failure with a right pleural effusion. He had been offered hemodialysis a month or 2 ago but had declined. He presented here to the emergency room yesterday with worsening shortness of breath 4 days prior to his arrival. He did decide to go ahead with dialysis catheter placement that is to be done on 08/03/2022 2 being on Eliquis. Chest x-ray does show persistent cardiomegaly and with small to moderate right side greater than left pleural effusions and moderate central vascular congestion. Stable right internal jugular Mediport catheter in place. Ventilation perfusion scan revealed very low probability for pulmonary embolism. White count 3.4. Hemoglobin 7.8. INR 1.1. Sodium 137. Potassium 5.3. Bicarb 17. BUN 89. Creatinine 4.87. Glucose 156. Hunt virus by PCR not detected. He is seen today in consultation on the regular medical floor. He is currently resting flat in bed. Awake and alert in no acute distress. Maintaining good O2 saturations in the 90s on 2 L/m per nasal cannula. He's been initiated on Lasix 80 mg IV every 12 hours. Eliquis remains on hold. Progress note dated 08/02/2022. The patient is resting comfortably in room 365. He was seen yesterday in consultation. He came in with shortness of breath, thought to be related to fluid overload. Today, he's feeling about the same as did yesterday. No better or no worse. White count 4.2, hemoglobin 7, hematocrit 22.1, and platelet count 238,000. Sodium 137, potassium 4.9, chlorides 105, CO2 23, BUN 82, and creatinine 5.41. The patient has decided to go ahead and proceed with h emodialysis. Progress note dated 08/03/2022. The patient is again seen at 365. The patient got back to the room recently, having had a hemodialysis catheter placed. The patient may have his first hemodialysis session later today. Clinically he is stable. He is on 3 L of oxygen. The patient is not getting any IV fluids. States that his breathing is about the same. He was admitted with a diagnosis of shortness of breath, secondary to fluid overload, presumably secondary to his worsening renal function. White count 3.5, hemoglobin 6.6, hematocrit 22, and platelet count 207,000. Sodium 135, potassium 4.7, chlorides 105, CO2 22, anion gap 8, BUN 86, creatinine 5.81. 08/04/2022, I'm seeing the patient for a follow-up. Dialysis catheter is in place and the patient has already undergone 2 sessions of hemodialysis, yesterday and today. yesterday, total amount of fluid removed was 1.8 L. The patient otherwise is resting comfortably in bed. No new complaints. He is bedbound. He is still edema in lower oximetry is bilaterally. His undergone previous bypass surgery and previous coronary stents. She has chronic ejaculation/flutter along with previous history of DVTs and chronic kidney disease. He has hypertension and hyperlipidemia, previous NM, obstructive sleep apnea, and previous history of breast cancer with mastectomy and chemotherapy. His white cell count today's of 4.7 with a hemoglobin of 8.1 and he was given a unit of packed RBC and a platelet count is at 213. Sodium is at 137 with a potassium level of 4.2 and bicarb is at 27. BUN is at 60 with a creatinine of 4.6 per chest x-ray from yesterday was showing improvement in the volume status and the right-sided pleural effusion. On 08/05/2022, the patient is being seen for a follow-up. Note that the patient is comfortable on today's evaluation. He underwent hemodialysis yesterday. No hemodialysis for today and he will have another session for tomorrow. The patient has been essentially, comfortable. He is currently on 2 L of oxygen by nasal cannula with a pulse ox of 96%. No chest pain. No cough or sputum production. On his blood work, the patient's hemoglobin today was at 6.9. The patient will be given a unit of packed RBC. There is no evidence of any GI bleed. The white suppositive 4 with a hemoglobin of 189, Bun is 43 with a creatinine of 3.3 and a sodium levels of 138. No major changes in his medication. The patient remains on Levemir insulin 30 units On 08/06/2022, the patient's condition is essentially unchanged. His resting comfortably in bed in 30 liters of oxygen by nasal cannula. No significant shortness of breath. No reported chest pain. Received 2 units of packed RBC yesterday. No evidence of any GI bleeding. He hemodynamically stable. He is going to undergo another session of hemodialysis. His hemoglobin from today is at 6.9 and a white cell count is at 4 with a sodium level of 138 and a BUN of 43 with a creatinine of 3.36 and a glucose of 112. He remains on Levemir insulin for blood sugar control. Objective - Vital Signs Vital signs: Vital Signs Temp 97.6 F 08/06/22 08:30 Pulse 65 08/06/22 08:30 Resp 18 08/06/22 08:30 BP 128/70 08/06/22 08:30 Pulse Ox 95 08/06/22 08:48 FiO2 Intake & Output 08/05/22 08/06/22 08/06/22 18:59 06:59 18:59 Intake Total 1266 360 118 Output Total 400 205 Balance 866 155 118 Weight 83.5 kg 96.5 kg Intake: Oral 956 360 118 Blood Product 310 Rc As-1 Unit 310 [id number] Output: Drainage 5 Right Chest 5 Urine 400 200 Other: Voiding Method External Catheter External Catheter - Exam No acute distress, oriented 3. Currently on 2 L of oxygen. No use of accessory muscles, or conversational dyspnea. HEENT examination is grossly unremarkable. Neck supple. Full range of motion. No adenopathy thyromegaly or neck vein distention. Cardiovascular examination reveals regular rhythm rate. S1-S2 normal. No S3 or S4. No discernible murmur noted. Heart rate 58 bpm. Lungs reveal bibasilar crackles. No wheezes or rhonchi. Breath sounds equal bilaterally. Saturations are 95%. Abdomen soft bowel sounds are heard. No masses or tenderness. Extremities are intact. No cyanosis or clubbing. Trace edema is noted. Skin reveals some chronic venous stasis changes. Neurologic examination is brief but nonfocal. - Labs CBC & Chem 7: 08/06/22 11:22 08/05/22 07:52 Labs: Abnormal Lab Results - Last 24 Hours (Table) 08/03/22 08/05/22 08/05/22 Range/Units 12:59 16:18 20:05 POC Glucose (mg/dL) 152 H 145 H (70-110) mg/dL Crossmatch See Detail 08/06/22 08/06/22 Range/Units 06:03 11:47 POC Glucose (mg/dL) 138 H 180 H (70-110) mg/dL Crossmatch Assessment and Plan Plan: Acute hypoxemic respiratory failure secondary to fluid volume overload from diastolic congestive heart failure. Clinically improving and the patient is currently on 2 L of oxygen by nasal cannula Chronic kidney disease stage IV, now agreeable to hemodialysis and plans for permacath placement on 08/03/2022. History of atrial fibrillation, anticoagulated with Eliquis, currently on hold. History of DVT, treated with Eliquis. Right-sided breast cancer status post mastectomy on 07/21/2022, receiving chemot herapy. Hypertension. Diabetes mellitus. Hyperlipidemia. History of gout. History of coronary artery disease with previous coronary bypass grafting as well as previous stent placement. Benign prostatic hyperplasia. Diabetic polyneuropathy. History of meningioma with left-sided weakness. History of anemia from chronic kidney disease. Plan Patient is undergoing hemodialysis today Maintain torsemide 40 mg by mouth daily Continue oxygen therapy at 2 L/m nasal cannula Treatment essentially supportive Given units of packed RBC and monitor the hemoglobin Pulmonary critical care services will see him only on an as-needed basis
[2022-08-06] MEDS: METOPROLOL SUCCINATE (ER) 25 MG TAB.ER.24H PO SCH (17:13)
[2022-08-06] MEDS: CHOLECALCIFEROL 25 MCG (1000 IU) TABLET PO SCH ×2 (17:14→17:17)
[2022-08-06] MEDS: FERROUS SULFATE 325 MG TAB PO SCH (17:14)
[2022-08-06] MEDS: amLODIPine 5 MG TAB PO SCH (17:14)
[2022-08-06] MEDS: TORSEMIDE 20 MG TAB PO SCH (17:14)
[2022-08-06] MEDS: AMIODARONE 100 MG TAB PO SCH (17:14)
[2022-08-06] MEDS: FOLIC ACID 1 MG TAB PO SCH ×2 (17:15→17:17)
[2022-08-06 18:29] LABS: Hepatitis B Surface AB- Quant 3.5 mIU/mL; Hepatitis B Surface Antibody Nonreactive (Nonreactive)
[2022-08-06 20:03] LABS: Glucose,Whole Blood 167 mg/dL (70-110)
[2022-08-06] MEDS: PRAMIPEXOLE 0.25 MG TAB PO SCH (20:12)
[2022-08-06] MEDS: INSULIN DETEMIR (LEVEMIR) 100 UNIT/ML SYR SQ SCH (20:13)
[2022-08-06] MEDS: PRAVASTATIN SODIUM 40 MG TAB PO SCH (20:13)
[2022-08-06] MEDS: MELATONIN 3 MG TABLET PO SCH (20:13)
[2022-08-07 06:06] LABS: Glucose,Whole Blood 147 mg/dL (70-110)
[2022-08-07] MEDS: INSULIN ASPART (NovoLOG) 100 UNIT/ML VIAL SQ SCH (06:22)
[2022-08-07] MEDS: TORSEMIDE 20 MG TAB PO SCH (09:09)
[2022-08-07] MEDS: FOLIC ACID 1 MG TAB PO SCH (09:09)
[2022-08-07] MEDS: hydrALAZINE HCL 25 MG TAB PO SCH (09:09)
[2022-08-07] MEDS: allopurinoL 100 MG TAB PO SCH (09:09)
[2022-08-07] MEDS: TAMSULOSIN 0.4 MG CAP.ER.24H PO SCH (09:09)
[2022-08-07] MEDS: METOPROLOL SUCCINATE (ER) 25 MG TAB.ER.24H PO SCH (09:09)
[2022-08-07] MEDS: FERROUS SULFATE 325 MG TAB PO SCH (09:09)
[2022-08-07] MEDS: CHOLECALCIFEROL 25 MCG (1000 IU) TABLET PO SCH (09:10)
[2022-08-07] MEDS: AMIODARONE 100 MG TAB PO SCH (09:10)
[2022-08-07] MEDS: SODIUM BICARBONATE TAB 650 MG TAB PO SCH (09:10)
[2022-08-07] MEDS: PANTOPRAZOLE 40 MG/10 ML VIAL IVP SCH (09:12)
[2022-08-07] MEDS: amLODIPine 5 MG TAB PO SCH (09:12)
[2022-08-07] MEDS: CHOLESTYRAMINE (WITH SUGAR) 4 GM PACKET PO SCH (10:01)
--- NOTE | 2022-08-07 10:22 | P.PN ---
Subjective Patient is seen in follow-up for chronic kidney disease. Started on hemodialysis 08/03/2022. Resting in bed. Denies chest pain or shortness of br eath at this time. On nasal cannula. Hemodynamically stable. Tolerated 2 L ultrafiltration yesterday. Vital signs are stable. General: Awake. No acute distress. HEENT: Head exam is unremarkable. On nasal cannula. LUNGS: Breath sounds decreased. HEART: Rate and Rhythm are regular. ABDOMEN: Soft, obese. EXTREMITITES: Trace edema. Objective - Vital Signs Vital signs: Vital Signs Temp 97.7 F 08/07/22 04:00 Pulse 77 08/07/22 04:00 Resp 17 08/07/22 04:00 BP 157/68 08/07/22 04:00 Pulse Ox 96 08/07/22 04:00 FiO2 Intake & Output 08/06/22 08/07/22 08/07/22 18:59 06:59 18:59 Intake Total 856 358 Output Total 2002 0 Balance -1146 0 358 Weight 102 kg Intake: Oral 356 358 Hemodialysis 500 Output: Drainage 2 0 Right Chest 2 0 Hemodialysis 2000 Other: Voiding Method External Catheter External Catheter - Labs CBC & Chem 7: 08/06/22 11:22 08/05/22 07:52 Labs: Abnormal Lab Results - Last 24 Hours (Table) 08/06/22 08/06/22 08/06/22 Range/Units 11: 11:47 16:33 RBC 2.38 L (4.30-5.90) m/uL Hgb 7.5 L (13.0-17.5) gm/dL Hct 23.7 L (39.0-53.0) % RDW 18.5 H (11.5-15.5) % POC Glucose (mg/dL) 180 H 126 H (70-110) mg/dL 08/06/22 08/07/22 Range/Units 20:02 06:05 RBC (4.30-5.90) m/uL Hgb (13.0-17.5) gm/dL Hct (39.0-53.0) % RDW (11.5-15.5) % POC Glucose (mg/dL) 167 H 147 H (70-110) mg/dL Assessment and Plan Plan: Assessment: 1. Chronic kidney disease stage V secondary to nephrosclerosis/diabetic kidney disease. Started on hemodialysis 08/03/2022 via permacath. 2. Volume overload. Frequent admissions for volume overload. Improving with diuresis and ultrafiltration. 3. Hypertension with chronic kidney disease. Stable. 4. Diabetes mellitus. 5. Breast cancer status post right mastectomy with lymph node biopsy. 6. Anemia of chronic kidney disease. Iron replete. Status post blood transfusion this admission. No active bleeding. 7. Metabolic acidosis secondary to chronic kidney disease. On oral bicarbonate. Improved. 8. Mild hyperkalemia secondary to acute kidney injury and acidosis. Resolved. Plan: Hemodialysis tomorrow. He will be maintained on Thursday schedule outpatient. Maintain torsemide 40 mg once daily. Phosphorus 5.4 dated 08/03/2022. Hold off on HELENA due to malignancy - will start outpatient once cleared by oncology. Hold hydralazine for systolic blood pressure less than 120. Stop bicarb.
[2022-08-07 11:25] LABS: Albumin 3.3 g/dL (3.5-5.0); Calcium 9.5 mg/dL (8.4-10.2); Potassium 4.6 mmol/L (3.5-5.1); Total Bilirubin 0.4 mg/dL (0.2-1.3); Total Protein 5.1 g/dL (6.3-8.2)
--- NOTE | 2022-08-07 11:40 | P.PN ---
Subjective Progress Note Date: 08/07/22 Principal diagnosis: Right breast cancer Patient doing well today. Still with some fatigue. He is anxious to go home today. LUISITO drain output is less than 5 mL per day now. Hemoglobin 7.5 yesterday. Objective - Vital Signs Vital signs: Vital Signs Temp 97.7 F 08/07/22 04:00 Pulse 77 08/07/22 04:00 Resp 17 08/07/22 04:00 BP 157/68 08/07/22 04:00 Pulse Ox 96 08/07/22 04:00 FiO2 Intake & Output 08/06/22 08/07/22 08/07/22 18:59 06:59 18:59 Intake Total 856 358 Output Total 2001 0 Balance -1146 0 358 Weight 102 kg Intake: Oral 356 358 Hemodialysis 500 Output: Drainage 2 0 Right Chest 2 0 Hemodialysis 1999 Other: Voiding Method External Catheter External Catheter - Exam Right chest wall incision clean and dry, LUISITO drain in place - Labs CBC & Chem 7: 08/06/22 11:22 08/07/22 10:56 Labs: Abnormal Lab Results - Last 24 Hours (Table) 08/06/22 08/06/22 08/06/22 Range/Units 11: 11:47 16:33 RBC 2.38 L (4.30-5.90) m/uL Hgb 7.5 L (13.0-17.5) gm/dL Hct 23.7 L (39.0-53.0) % RDW 18.5 H (11.5-15.5) % Sodium (137-145) mmol/L BUN (9-20) mg/dL Creatinine (0.66-1.25) mg/dL Glucose (74-99) mg/dL POC Glucose (mg/dL) 180 H 126 H (70-110) mg/dL Total Protein (6.3-8.2) g/dL Albumin (3.5-5.0) g/dL 08/06/22 08/07/22 08/07/22 Range/Units 20:02 06:05 10:56 RBC (4.30-5.90) m/uL Hgb (13.0-17.5) gm/dL Hct (39.0-53.0) % RDW (11.5-15.5) % Sodium 136 L (137-145) mmol/L BUN 47 H (9-20) mg/dL Creatinine 3.08 H (0.66-1.25) mg/dL Glucose 165 H (74-99) mg/dL POC Glucose (mg/dL) 167 H 147 H (70-110) mg/dL Total Protein 5.1 L (6.3-8.2) g/dL Albumin 3.3 L (3.5-5.0) g/dL Assessment and Plan (1) Cancer of right male breast Narrative/Plan: Patient gradually doing better. Drain output is now minimal. We'll remove LUISITO drain. Continue to monitor for bleeding. If discharged today outpatient labs at dialysis would be advised. Current Visit: No Status: Acute Priority: Medium Code(s): C50.921 - MALIGNANT NEOPLASM OF UNSPECIFIED SITE OF RIGHT MALE BREAST SNOMED Code(s): 451980857
[2022-08-07 11:46] LABS: Glucose,Whole Blood 168 mg/dL (70-110)
[2022-08-07 12:00] LABS: Anisocytosis Slight; Basophils % (A) 1 %; Eosinophils # (A) 0.1 k/uL (0-0.7); Eosinophils % (A) 1 %; HCT 22.5 % (39.0-53.0); HGB 7.2 gm/dL (13.0-17.5); Hypochromasia Slight; Lymphocytes # (A) 0.3 k/uL (1.0-4.8); Lymphocytes % (A) 6 %; MCH 31.3 pg (25.0-35.0); MCHC 32.2 g/dL (31.0-37.0); Macrocytosis Slight; Mean Platelet Volume 10.5; Monocytes # (A) 0.4 k/uL (0-1.0); Monocytes % (A) 8 %; Neutrophils # (A) 4.2 k/uL (1.3-7.7); Neutrophils % (A) 82 %; Platelet Count 141 k/uL (150-450); Poikilocytosis Slight; RBC 2.32 m/uL (4.30-5.90); RDW 18.7 % (11.5-15.5); WBC 5.2 k/uL (3.8-10.6)
--- NOTE | 2022-08-07 12:50 | P.DS ---
Providers Date of admission: 07/31/22 18:49 Expected date of discharge: 08/07/22 Attending physician: Pablo Jon Consults: 08/01/22 08:59 Consult Physician Routine Consulting Provider: Lupillo Begum Consult Reason/Comments: JAYLEEN Do you want consulting provider notified?: Yes Consult Physician Routine Consulting Provider: Yin Campos Consult Reason/Comments: CKD4 Do you want consulting provider notified?: Yes 08/01/22 10:14 Consult Physician Routine Consulting Provider: Lazaro Redman Consult Reason/Comments: permacath Do you want consulting provider notified?: Yes 08/01/22 16:08 Consult Physician Routine Consulting Provider: Nazario Valdes Consult Reason/Comments: Know patient Do you want consulting provider notified?: Already Contacted Primary care physician: Pablo Jon Hospital Course: Discharge diagnoses; 1. Chronic kidney disease stage V secondary to nephrosclerosis/diabetic kidney disease. Started on hemodialysis 08/03/2022 via permacath. 2. Volume overload. 3. Hypertension with chronic kidney disease. Stable. 4. Diabetes mellitus. 5. Breast cancer status post right mastectomy with lymph node biopsy. 6. Anemia of chronic kidney disease. Iron replete. Status post blood transfusion this admission. No active bleeding. 7. Metabolic acidosis secondary to chronic kidney disease. On oral bicarbonate. Improved. 8. Mild hyperkalemia secondary to acute kidney injury and acidosis. Resolved. Hospital course; This is a very pleasant 72-year-old male patient with a known history of hypertension, hyperlipidemia, myocardial infarction, obstructive sleep apnea, coronary artery disease with previous coronary artery bypass grafting and stent placement, atrial fibrillation/flutter, DVT, GERD, chronic kidney disease stage IV. He also was found to have right-sided breast cancer and had undergone a right mastectomy earlier this month and initiated on chemotherapy. He had also been treated for acute diastolic congestive heart failure with a right pleural effusion. He had been offered hemodialysis a month or 2 ago but had declined. He presented here to the emergency room with worsening shortness of breath 4 days prior to his arrival. He did decide to go ahead with dialysis catheter placement that is to be done on 08/03/2022 2 being on Eliquis. Chest x-ray does show persistent cardiomegaly and with small to moderate right side greater than left pleural effusions and moderate central vascular congestion. Stable right internal jugular Mediport catheter in place. Pulmonology, nephrology were consulted. Nephrology initiated the patient on dialysis. Eliquis on hold. Hemoglobin continues to be stable. Being discharged to follow-up outpatient with PCP, nephrology and pulmonary PHYSICAL EXAMINATION: GENERAL: The patient is alert and oriented x3, not in any acute distress. Well developed, well nourished. HEENT: Pupils are round and equally reacting to light. EOMI. No scleral icterus. No conjunctival pallor. Normocephalic, atraumatic. No pharyngeal erythema. No thyromegaly. CARDIOVASCULAR: S1 and S2 present. No murmurs, rubs, or gallops. PULMONARY: Coarse breath some bilaterally, no wheeze ABDOMEN: Soft, nontender, nondistended, normoactive bowel sounds. No palpable organomegaly. MUSCULOSKELETAL: No joint swelling or deformity. EXTREMITIES: 1+ pitting edema lower extremities bilaterally NEUROLOGICAL: Gross neurological examination did not reveal any focal deficits. SKIN: No rashes. Patient Condition at Discharge: Stable Plan - Discharge Summary Discharge Rx Participant: Yes New Discharge Prescriptions: New Melatonin 3 mg PO HS tab Pramipexole [Mirapex] 0.25 mg PO HS #30 tab Sodium Bicarbonate Tab 650 mg PO BID #60 tab Continue Tamsulosin HCl [Flomax] 0.4 mg PO BID amLODIPine [Norvasc] 5 mg PO DAILY hydrALAZINE HCL [Apresoline] 75 mg PO BID Ferrous Sulfate [Iron (65 MG Elemental)] 325 mg PO DAILY Pravastatin Sodium [Pravachol] 40 mg PO HS allopurinoL [Zyloprim] 100 mg PO DAILY Amiodarone [Cordarone] 100 mg PO DAILY Folic Acid 0.8 mg PO DAILY Lidocaine-Prilocaine Cream [Emla Cream 2.5%/2.5%] 1 applic TOPICAL DAILY PRN PRN Reason: port access Famotidine [Pepcid] 20 mg PO DAILY PRN PRN Reason: GERDS INSULIN ASPART (NovoLOG) [NovoLOG (formulary)] See Protocol SQ ACHS PRN PRN Reason: HIGH BLOOD SUGAR Cholecalciferol [Vitamin D3 (25 Mcg = 1000 Iu)] 25 mcg PO DAILY Metoprolol Succinate (ER) [Toprol XL] 25 mg PO DAILY calcitrioL [Calcitriol] 0.25 mcg PO MO Docusate [Colace] 100 mg PO BID PRN cap PRN Reason: Constipation Insulin Glargine,Hum.rec.anlog [Lantus Solostar Pen] 30 units SQ HS #0 Torsemide [Demadex] 40 mg PO DAILY #30 tab Discontinued Cholestyramine (with Sugar) [Questran Packet] 4 gm PO BID Diphenoxylate HCl/Atropine [Lomotil 2.5-0.025 mg Tablet] 1 tab PO DAILY Apixaban [Eliquis] 2.5 mg PO BID #0 Discharge Medication List Tamsulosin HCl [Flomax] 0.4 mg PO BID 06/19/15 [History] amLODIPine [Norvasc] 5 mg PO DAILY 07/09/16 [History] Ferrous Sulfate [Iron (65 MG Elemental)] 325 mg PO DAILY 03/21/21 [History] Pravastatin Sodium [Pravachol] 40 mg PO HS 03/21/21 [History] allopurinoL [Zyloprim] 100 mg PO DAILY 03/21/21 [History] hydrALAZINE HCL [Apresoline] 75 mg PO BID 03/21/21 [History] Cholecalciferol [Vitamin D3 (25 Mcg = 1000 Iu)] 25 mcg PO DAILY 01/13/22 [History] Amiodarone [Cordarone] 100 mg PO DAILY 02/07/22 [History] Folic Acid 0.8 mg PO DAILY 02/07/22 [History] Metoprolol Succinate (ER) [Toprol XL] 25 mg PO DAILY 02/07/22 [History] Lidocaine-Prilocaine Cream [Emla Cream 2.5%/2.5%] 1 applic TOPICAL DAILY PRN 06/03/22 [History] calcitrioL [Calcitriol] 0.25 mcg PO MO 06/03/22 [History] Docusate [Colace] 100 mg PO BID PRN cap 06/07/22 [Rx] Insulin Glargine,Hum.rec.anlog [Lantus Solostar Pen] 30 units SQ HS #0 06/07/22 [Rx] Famotidine [Pepcid] 20 mg PO DAILY PRN 07/16/22 [History] Torsemide [Demadex] 40 mg PO DAILY #30 tab 07/23/22 [Rx] INSULIN ASPART (NovoLOG) [NovoLOG (formulary)] See Protocol SQ ACHS PRN 07/31/22 [History] Melatonin 3 mg PO HS tab 08/07/22 [Rx] Pramipexole [Mirapex] 0.25 mg PO HS #30 tab 08/07/22 [Rx] Sodium Bicarbonate Tab 650 mg PO BID #60 tab 08/07/22 [Rx] Follow up Appointment(s)/Referral(s): Pablo Jon MD [Primary Care Provider] - 1 Week (Office is closed. Please call tomorrow to schedule follow up) Patient Instructions/Handouts: Chronic Kidney Disease (GEN), Dialysis Diet (GEN) Activity/Diet/Wound Care/Special Instructions: Patient to follow up with outpatient dialysis at [place] [id number] . First appointment 08/08/22 at 4:00PM. Normal ongoing chair time is for 4:30PM Thursday, Thursday and Fridays. Discharge Disposition: HOME WITH HOME HEALTH SERVICES
[2022-08-07 12:52] VITALS: RESP 18
[2022-08-07 12:54] VITALS: BP 122/67; PULSE 98; TEMP 97.8
== END 2022-08-07 13:42 | disposition home health service (06) | DRG 291 ==
LOC: EC 15:56 → 3SCARD 18:49
PROVIDERS: ADMIT Internal Medicine; ATTEND Internal Medicine
PROC: 02HV33Z Insertion of Infusion Device into Superior Vena Cava, Percutaneous Approach (ICD-10-PCS; principal; 2022-08-03 08:50)
PROC: 02HV33Z Insertion of Infusion Device into Superior Vena Cava, Percutaneous Approach (ICD-10-PCS; 2022-08-03 08:50)
PROC: 5A1D70Z Performance of Urinary Filtration, Intermittent, Less than 6 Hours Per Day (ICD-10-PCS; 2022-08-03 08:50)
DX: I13.2 Hypertensive heart and chronic kidney disease with heart failure and with stage 5 chronic kidney disease, or end stage renal disease (principal); I50.33 Acute on chronic diastolic (congestive) heart failure; J96.01 Acute respiratory failure with hypoxia; N18.6 End stage renal disease; D61.818 Other pancytopenia; E87.20 Acidosis, unspecified; N17.9 Acute kidney failure, unspecified; R18.8 Other ascites; I48.92 Unspecified atrial flutter; N25.81 Secondary hyperparathyroidism of renal origin; D63.1 Anemia in chronic kidney disease; C50.921 Malignant neoplasm of unspecified site of right male breast; E11.42 Type 2 diabetes mellitus with diabetic polyneuropathy; E11.22 Type 2 diabetes mellitus with diabetic chronic kidney disease; E66.9 Obesity, unspecified; G25.81 Restless legs syndrome; Z95.828 Presence of other vascular implants and grafts; Z68.31 Body mass index [BMI] 31.0-31.9, adult; E88.09 Other disorders of plasma-protein metabolism, not elsewhere classified; Z79.01 Long term (current) use of anticoagulants; Z95.1 Presence of aortocoronary bypass graft; N40.0 Benign prostatic hyperplasia without lower urinary tract symptoms; I25.10 Atherosclerotic heart disease of native coronary artery without angina pectoris; E78.5 Hyperlipidemia, unspecified; G47.33 Obstructive sleep apnea (adult) (pediatric); H54.61 Unqualified visual loss, right eye, normal vision left eye; M89.8X9 Other specified disorders of bone, unspecified site; E87.5 Hyperkalemia; I48.0 Paroxysmal atrial fibrillation; M1A.9XX0 Chronic gout, unspecified, without tophus (tophi); G47.00 Insomnia, unspecified; K21.9 Gastro-esophageal reflux disease without esophagitis; R19.5 Other fecal abnormalities; R53.1 Weakness; M21.372 Foot drop, left foot; Z20.822 Contact with and (suspected) exposure to COVID-19; Z28.310 Unvaccinated for COVID-19; Z87.19 Personal history of other diseases of the digestive system; Z99.2 Dependence on renal dialysis; Z86.718 Personal history of other venous thrombosis and embolism; Z92.21 Personal history of antineoplastic chemotherapy; Z79.899 Other long term (current) drug therapy; Z90.11 Acquired absence of right breast and nipple; Z79.4 Long term (current) use of insulin; Z88.0 Allergy status to penicillin; Z91.048 Other nonmedicinal substance allergy status; I25.2 Old myocardial infarction; Z99.3 Dependence on wheelchair; Z95.5 Presence of coronary angioplasty implant and graft; Z86.011 Personal history of benign neoplasm of the brain
CPT/HCPCS: 36415; 36558; 71045; 71046; 74176; 76937; 77001; 78580; 80053; 81001; 82728; 83540; 83550; 83735; 83880; 84100; 84484; 85025; 85027; 85610; 85730; 86706; 86850; 86900; 86901; 86920; 87340; 87635; 90935; 93005; 94660; 94760; 96372; 96374; 99291

== ENCOUNTER 2022-09-18 10:56 | Day surgery (SDC) | payer MEDICARE ==
[2022-09-17 12:20] VITALS: BMI 29.8
[~2022-09-18 10:56] MED LIST changes: -Pre Op ABX Message 1 EACH MISC MISCELLANE ONE
[2022-09-18] MEDS ORDERED: LACTATED RINGERS 1,000 ML IV SCH (11:37)
[2022-09-18] MEDS ORDERED: ONDANSETRON 4 MG/2 ML VIAL IVP ONE (11:37)
[2022-09-18] MEDS ORDERED: HYDROmorphone 0.5 MG/0.5 ML SYRINGE IVP PRN (11:37)
[2022-09-18] MEDS ORDERED: DEXAMETHASONE SOD PHOSPHATE 4 MG/ML 1 ML VIAL IV ONE (11:37)
[2022-09-18] MEDS ORDERED: SODIUM CHLORIDE 0.9% 1,000 ML IV ONE (11:57)
[2022-09-18 12:01] LABS: Glucose,Whole Blood 105 mg/dL (70-110)
[2022-09-18 12:09] LABS: Basophils % (A) 1 %; Eosinophils % (A) 1 %; HCT 36.8 % (39.0-53.0); Hypochromasia Moderate; Lymphocytes # (A) 0.3 k/uL (1.0-4.8); Lymphocytes % (A) 9 %; MCH 30.2 pg (25.0-35.0); MCHC 32.4 g/dL (31.0-37.0); MCV 93.2 fL (80.0-100.0); Mean Platelet Volume 7.6; Monocytes # (A) 0.4 k/uL (0-1.0); Monocytes % (A) 11 %; Neutrophils # (A) 2.7 k/uL (1.3-7.7); Neutrophils % (A) 75 %; Platelet Count 207 k/uL (150-450); Poikilocytosis Slight; RBC 3.95 m/uL (4.30-5.90); RDW 13.8 % (11.5-15.5); WBC 3.7 k/uL (3.8-10.6)
[2022-09-18 12:26] LABS: HGB 11.9 gm/dL (13.0-17.5)
[2022-09-18 12:55] LABS: Albumin 4.1 g/dL (3.5-5.0); Calcium 9.8 mg/dL (8.4-10.2); Total Bilirubin 0.6 mg/dL (0.2-1.3); Total Protein 6.6 g/dL (6.3-8.2)
[2022-09-18] MEDS ORDERED: BUPIVACAIN-EPI 0.25%-1:200,000 30 ML VIAL SQ ONE ×4 (13:11→14:07)
[2022-09-18 13:18] LABS: Potassium 4.1 mmol/L (3.5-5.1)
[2022-09-18] MEDS ORDERED: ACETAMINOPHEN TAB 325 MG TAB PO PRN (14:15)
[2022-09-18] MEDS ORDERED: NALOXONE 0.4 MG/ML 1 ML VIAL IV PRN (14:15)
[2022-09-18] MEDS ORDERED: traMADol 50 MG TAB PO PRN (14:15)
--- NOTE | 2022-09-18 14:19 | P.OP ---
Date of Procedure: 09/18/22 Procedure(s) Performed: PREOPERATIVE DIAGNOSIS: Renal failure, breast cancer POSTOPERATIVE DIAGNOSIS: Same PROCEDURE: Peritoneal dialysis catheter insertion, Port-A-Cath removal SURGEON: Keisha EBL: Minimal ANESTHESIA: Sedation plus local COMPLICATIONS: None OPERATIVE PROCEDURE: The patient was placed in the operative table in the supine position. The abdomen and chest were prepped and draped in usual sterile fashion. A small vertical incision was made in the right periumbilical location. Dissection down through the subcutaneous tissues took place using electrocautery. The anterior rectus was divided vertically using the scalpel. The rectus was bluntly. The posterior rectus was visualized. An 0 Vicryl pursestring was placed. A small opening in the posterior rectus fascia and peritoneum took place using a Metzenbaum scissors. There were no adhesions to the suture that was placed. The pigtail catheter was advanced into the pelvis over a stylette. No resistance was met. The inner cuff was secured to the fascia using the 0 Vicryl pursestring that was placed. The catheter was tunneled to an exit site in the right lateral lower quadrant. The catheter was connected to the 1 L bag of saline and approximated 800 mL of saline was easily introduced into the peritoneal cavity. The fluid was then allowed to evacuate. The majority of the fluid was returned. The anterior rectus fascia was then reapproximated using a running 0 Vicryl stitch. The subcutaneous tissues repre pped using 3-0 Vicryl sutures and the skin using 4-0 Monocryl sutures. The outpatient dialysis adapter was applied to the end of the catheter. Sterile dressings were then applied after skin glue was placed over the incision. The Port-A-Cath site was then addressed. The skin was localized with Marcaine solution. The previous incision was re-incised using a scalpel. The port was easily excised using accommodation of blunt dissection sharp dissection and electrocautery. The subcutaneous tissues were reapproximated using 3-0 Vicryl sutures. The skin was reapproximated using 4-0 Monocryl sutures. Skin glue was then applied. DISPOSITION: Stable to recovery room
[2022-09-18 14:38] VITALS: TEMP 97.2
[2022-09-18 14:45] LABS: Glucose,Whole Blood 158 mg/dL (70-110)
[2022-09-18 15:07] VITALS: RESP 16
[2022-09-18 16:29] VITALS: BP 164/80; PULSE 71
== END 2022-09-18 17:00 | disposition home or self-care (01) ==
LOC: OR 10:56
PROVIDERS: ATTEND Surgery
DX: E11.22 Type 2 diabetes mellitus with diabetic chronic kidney disease (principal); N18.6 End stage renal disease; Z99.2 Dependence on renal dialysis; I12.0 Hypertensive chronic kidney disease with stage 5 chronic kidney disease or end stage renal disease; I25.10 Atherosclerotic heart disease of native coronary artery without angina pectoris; Z95.5 Presence of coronary angioplasty implant and graft; G47.33 Obstructive sleep apnea (adult) (pediatric); Z90.49 Acquired absence of other specified parts of digestive tract; Z98.890 Other specified postprocedural states; Z79.4 Long term (current) use of insulin; Z79.1 Long term (current) use of non-steroidal anti-inflammatories (NSAID); Z79.01 Long term (current) use of anticoagulants; Z79.811 Long term (current) use of aromatase inhibitors; Z79.891 Long term (current) use of opiate analgesic; Z79.83 Long term (current) use of bisphosphonates; Z79.899 Other long term (current) drug therapy
CPT/HCPCS: 80053; 85025; 49421; 36590; J1100; J0690; J2405; J1644

== ENCOUNTER 2023-01-04 16:20 | Emergency (ER) | payer MEDICARE ==
--- NOTE | 2023-01-04 16:43 | ED ---
Neuro HPI - General Stated Complaint: POSS STROKE Time Seen by Provider: 01/04/23 16:28 Source: patient, family, RN notes reviewed - History of Present Illness Is the patient presenting with stroke symptoms?: No Initial Comments: 72-year-old male with a history of multiple medical problems including renal failure with temper sent residual function to his on CAPD dialysis and has a history of a meningioma that was removed 10 years ago with left-sided weakness who presents with complaints of right-sided facial asymmetry and drooping is believed was started either early this morning or yesterday. The patient states yesterday his 's thinks this morning. No headache fevers chills nausea vomiting sweats no new deficits to his extremities no trauma reported. Additionally the patient was recently diagnosed as shingles on the right side of his face. No other current complaints or modifying factors - Related Data Home Medications: Home Medications Medication Instructions Recorded Confirmed Tamsulosin HCl [Flomax] 0.4 mg PO BID 06/19/15 01/04/23 amLODIPine [Norvasc] 5 mg PO BID 07/09/16 01/04/23 Pravastatin Sodium [Pravachol] 40 mg PO HS 03/21/21 01/04/23 allopurinoL [Zyloprim] 100 mg PO DAILY 03/21/21 01/04/23 hydrALAZINE HCL [Apresoline] 50 mg PO BID 03/21/21 01/04/23 Amiodarone [Cordarone] 200 mg PO DAILY 02/07/22 01/04/23 Metoprolol Succinate (ER) [Toprol 25 mg PO DAILY 02/07/22 01/04/23 XL] Lidocaine-Prilocaine Cream [Emla 1 applic TOPICAL DAILY PRN 06/03/22 01/04/23 Cream 2.5%/2.5%] INSULIN ASPART (NovoLOG) [NovoLOG See Protocol SQ ACHS PRN 07/31/22 01/04/23 (formulary)] Insulin Glargine,Hum.rec.anlog 35 units SQ HS 09/17/22 01/04/23 [Lantus Solostar Pen] Torsemide [Demadex] 20 mg PO BID 09/17/22 01/04/23 Apixaban [Eliquis] 5 mg PO DAILY 01/04/23 01/04/23 Exemestane [Aromasin] 25 mg PO DAILY 01/04/23 01/04/23 Lactulose 10 gm PO DAILY PRN 01/04/23 01/04/23 Potassium Chloride ER [K-Dur 20] 20 meq PO DAILY 01/04/23 01/04/23 metOLazone [Zaroxolyn] 5 mg PO DAILY 01/04/23 01/04/23 valACYclovir HCL [Valacyclovir] 500 mg PO DAILY 01/04/23 01/04/23 Previous Rx's Medication Instructions Recorded Famciclovir [Famvir] 500 mg PO Q12HR #14 tablet 01/04/23 Allergies/Adverse Reactions: Allergies Allergy/AdvReac Type Severity Reaction Status Date / Time Penicillins Allergy Unknown Rash/Hives Verified 01/04/23 18:15 adhesive AdvReac skin Verified 01/04/23 18:15 tears-paper tape is better but still will tear Review of Systems ROS Statement: Those systems with pertinent positive or pertinent negative responses have been documented in the HPI. ROS Other: All systems not noted in ROS Statement are negative. General Exam - General Exam Comments Initial Comments: This is a well-developed well-nourished awake alert oriented 4 male General appearance: alert, anxious Head exam: Present: other (Evidence of right facial asymmetry which does include the forehead) Eye exam: Present: other (A she does have a lesion on the cornea of the right eye he is blind in that eye.) ENT exam: Present: normal exam, mucous membranes moist Neck exam: Present: normal inspection. Absent: tenderness, meningismus, lymphadenopathy Respiratory exam: Present: rales, decreased breath sounds. Absent: respiratory distress, wheezes, rhonchi, stridor Cardiovascular Exam: Present: regular rate, normal rhythm, normal heart sounds. Absent: systolic murmur, diastolic murmur, rubs, gallop, clicks GI/Abdominal exam: Present: soft, normal bowel sounds. Absent: distended, tenderness, guarding, rebound, rigid Extremities exam: Present: normal inspection, normal capillary refill, other (Decreased movement to the left upper and lower extremities consistent with her previous history.). Absent: full ROM, tenderness, pedal edema, joint swelling, calf tenderness Back exam: Present: normal inspection Neurological exam: Present: alert, oriented X3, motor sensory deficit, other (Evidence of right facial nerve palsy) Psychiatric exam: Present: normal affect, normal mood Skin exam: Present: warm, dry, intact, other (Erythema seen over the right side of the face consistent with the patient's recent shingles diagnosis). Absent: rash Stroke MDM - Lab Data Result diagrams: 01/04/23 17:11 01/04/23 17:11 Lab Results 01/04/23 01/04/23 01/04/23 Range/Units 17:11 17:11 17:11 WBC 3.9 (3.8-10.6) k/uL RBC 4.03 L (4.30-5.90) m/uL Hgb 12.2 L (13.0-17.5) gm/dL Hct 35.5 L (39.0-53.0) % MCV 88.1 (80.0-100.0) fL MCH 30.2 (25.0-35.0) pg MCHC 34.3 (31.0-37.0) g/dL RDW 18.1 H (11.5-15.5) % Plt Count 200 (150-450) k/uL MPV 7.6 Neutrophils % 79 % Lymphocytes % 9 % Monocytes % 8 % Eosinophils % 1 % Basophils % 0 % Neutrophils # 3.1 (1.3-7.7) k/uL Lymphocytes # 0.4 L (1.0-4.8) k/uL Monocytes # 0.3 (0-1.0) k/uL Eosinophils # 0.1 (0-0.7) k/uL Basophils # 0.0 (0-0.2) k/uL Anisocytosis Slight PT 10.3 (9.0-12.0) sec INR 1.0 (<1.2) APTT 25.7 (22.0-30.0) sec Sodium 132 L (137-145) mmol/L Potassium 4.1 (3.5-5.1) mmol/L Chloride 96 L (98-107) mmol/L Carbon Dioxide 26 (22-30) mmol/L Anion Gap 10 mmol/L BUN 41 H (9-20) mg/dL Creatinine 3.13 H (0.66-1.25) mg/dL Est GFR (CKD-EPI)AfAm 22 (>60 ml/min/1.73 sqM) Est GFR (CKD-EPI)NonAf 19 (>60 ml/min/1.73 sqM) Glucose 173 H (74-99) mg/dL Calcium 10.1 (8.4-10.2) mg/dL Total Bilirubin 0.4 (0.2-1.3) mg/dL AST 24 (17-59) U/L ALT 24 (4-49) U/L Alkaline Phosphatase 87 (38-126) U/L Creatine Kinase (55-170) U/L Troponin I (0.000-0.034) ng/mL Total Protein 6.1 L (6.3-8.2) g/dL Albumin 3.7 (3.5-5.0) g/dL 01/04/23 01/04/23 Range/Units 17:11 17:11 WBC (3.8-10.6) k/uL RBC (4.30-5.90) m/uL Hgb (13.0-17.5) gm/dL Hct (39.0-53.0) % MCV (80.0-100.0) fL MCH (25.0-35.0) pg MCHC (31.0-37.0) g/dL RDW (11.5-15.5) % Plt Count (150-450) k/uL MPV Neutrophils % % Lymphocytes % % Monocytes % % Eosinophils % % Basophils % % Neutrophils # (1.3-7.7) k/uL Lymphocytes # (1.0-4.8) k/uL Monocytes # (0-1.0) k/uL Eosinophils # (0-0.7) k/uL Basophils # (0-0.2) k/uL Anisocytosis PT (9.0-12.0) sec INR (<1.2) APTT (22.0-30.0) sec Sodium (137-145) mmol/L Potassium (3.5-5.1) mmol/L Chloride (98-107) mmol/L Carbon Dioxide (22-30) mmol/L Anion Gap mmol/L BUN (9-20) mg/dL Creatinine (0.66-1.25) mg/dL Est GFR (CKD-EPI)AfAm (>60 ml/min/1.73 sqM) Est GFR (CKD-EPI)NonAf (>60 ml/min/1.73 sqM) Glucose (74-99) mg/dL Calcium (8.4-10.2) mg/dL Total Bilirubin (0.2-1.3) mg/dL AST (17-59) U/L ALT (4-49) U/L Alkaline Phosphatase (38-126) U/L Creatine Kinase 46 L (55-170) U/L Troponin I <0.012 (0.000-0.034) ng/mL Total Protein (6.3-8.2) g/dL Albumin (3.5-5.0) g/dL - NIH Stroke Scale 1a. Level of Consciousness: (0) alert 1b. LOC Questions: (0) answers correctly 1c. LOC Commands: (0) performs tasks correctly 2. Best Gaze: (0) normal 3. Visual: (2) complete hemianopia 4. Facial Palsy: (2) partial paralysis 5a. Motor Arm Left: (1) drift 6b. Motor Leg Right: (0) no drift 7. Limb Ataxia: (2) present 2 limbs 8. Sensory: (0) normal 9. Best Language: (0) no aphasia 10. Dysarthria: (0) normal 11. Extinction/Inattention: (0) no abnormality - Medical Decision Making I did discuss findings with the patient and family members. 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 Imaging CAT scan is interpreted by me no acute processes x-ray shows evidence of small effusion on the right with evidence of increased tone or vascular markings. Patient does maintain a pulse ox of 95% with no fever. I did discuss the case with Dr. Jon. Patient will be switched over to Famvir 500 mg twice a day for 1 week no steroids due to his diabetes he will follow-up in the office this week. Family is in agreement with this incident as well as the patient.Was pt. sent in by a medical professional or institution (, PA, MACHINE PLUG SHAPER, urgent care, hospital, or custodial...) When possible be specific @ -No Did you speak to anyone other than the patient for history (EMS, parent, family, police, friend...)? What history was obtained from this source @ -Family Did you review nursing and triage notes (agree or disagree)? Why? @ -I reviewed and agree with nursing and triage notes Were old charts reviewed (outside hosp., previous admission, EMS record, old EKG, old radiological studies, urgent care reports/EKG's, custodial records)? Report findings @ -No old charts were reviewed Differential Diagnosis (chest pain, altered mental status, abdominal pain women, abdominal pain men, vaginal bleeding, weakness, fever, dyspnea, syncope, headache, dizziness, GI bleed, back pain, seizure, CVA, palpatations, mental health, musculoskeletal)? @ -Arguelles's palsy, CVA EKG interpreted by me (3pts min.). @ -As above X-rays interpreted by me (1pt min.). @ -As above CT interpreted by me (1pt min.). @ -As above] U/S interpreted by me (1pt. min.). @ -None done What testing was considered but not performed or refused? (CT, X-rays, U/S, labs)? Why? @ -None What meds were considered but not given or refused? Why? @ -None Did you discuss the management of the patient with other professionals (mable ny i.eReagan Glover, PA, MACHINE PLUG SHAPER, lab, RT, psych nurse, group social worker, enterprise security architect, teacher, corporate trust officer, correctional counselor/case manager)? Give summary @ -No Was smoking cessation discussed for >3mins.? @ -No Was critical care preformed (if so, how long)? @ -No Were there social determinants of health that impacted care today? How? (Homelessness, low income, unemployed, alcoholism, drug addiction, transportatio n, low edu. Level, literacy, decrease access to med. care, senior care, rehab)? @ -No Was there de-escalation of care discussed even if they declined (Discuss DNR or withdrawal of care, Hospice)? DNR status @ -No What co-morbidities impacted this encounter? (DM, HTN, Smoking, COPD, CAD, Cancer, CVA, ARF, Chemo, Hep., AIDS, mental health diagnosis, sleep apnea, morbid obesity)? @ -Diabetes, renal failure with 10% kidney function remaining, herpes zoster Was patient admitted / discharged? Hospital course, mention meds given and route, prescriptions, significant lab abnormalities, going to OR and other pertinent info. @ -hospital course the patient discharged home on oral medication he will follow-up with his doctor this week he will take Famvir 500 mg twice a day for one week stop the acyclovir. Right eye will be taped and lubricating drops when necessary Undiagnosed new problem with uncertain prognosis? @ -No Drug Therapy requiring intensive monitoring for toxicity (Heparin, Nitro, Insulin, Cardizem)? @ -No Were any procedures done? @ -No Diagnosis/symptom? @ -Acute Arguelles's palsy right face, chronic renal failure Acute, or Chronic, or Acute on Chronic? @ -Acute Uncomplicated (without systemic symptoms) or Complicated (systemic symptoms)? @ -default Side effects of treatment? @ -No Exacerbation, Progression, or Severe Exacerbation? @ -No Poses a threat to life or bodily function? How? (Chest pain, USA, OR, pneumonia, PE, COPD, DKA, ARF, appy, cholecystitis, CVA, Diverticulitis, Homicidal, Suicidal, threat to staff... and all critical care pts) @ -No - EKG Data -: EKG Interpreted by Me (EKG interpreted by me to her ventricular rhythm rate 63 QRS duration 114 QT) Past Medical History Past Medical History: Atrial Fibrillation, Atrial Flutter, Coronary Artery Disease (CAD), Cancer, Diabetes Mellitus, Deep Vein Thrombosis (DVT), Eye Disorder, GERD/Reflux, Hyperlipidemia, Hypertension, Myocardial Infarction (OR), Neurologic Disorder, Osteoarthritis (OA), Prostate Disorder, Renal Disease, Sleep Apnea/CPAP/BIPAP Additional Past Medical History / Comment(s): currently has Hemodialysis MWF-4 Hrs-has port left shoulder., rt breast CA-Spring 2021,Blind in right eye. Hx encephalopathy, meningioma with left sided weakness, cannot use left leg, wheelchair bound. PT CAN'T HAVE ANY VACCINES THAT ARE LIVE VIRUSES. PLEASE USE PAPER TAPE ONLY(PT HAS THIN SKIN). uses slide board at home to transfer pt to w/c, with 2 person assist pt can stand/pivot to chair,uses cpap, uses O2 @ 2l NC prn Last Myocardial Infarction Date:: 02-11-2005 History of Any Multi-Drug Resistant Organisms: None Reported Past Surgical History: Adenoidectomy, Breast Surgery, Cardiac Ablation, Cholecystectomy, Coronary Bypass/CABG, Heart Catheterization With Stent, Orthopedic Surgery, Tonsillectomy Additional Past Surgical History / Comment(s): Triple bypass, Meningioma Removed from Brain 04/2013, peg tube- removed 9 years ago, DESTINEY FILTER, BILATERAL CATARACTS- LENS IMPLANTS, COLONOSCOPY/POLYPECTOMY, RIGHT KNEE ARTHROSCOPY, 07/21/22 right breast mastectomy Past Anesthesia/Blood Transfusion Reactions: No Reported Reaction Date of Last Stent Placement:: 2004 Smoking Status: Never smoker - Past Family History Father History Unknown: Yes Family Medical History: Congestive Heart Failure (CHF) Mother History Unknown: Yes Additional Family Medical History / Comment(s): at age 90 Course Vital Signs 01/04/23 16:35 Temperature 97.0 F L Pulse Rate 65 Respiratory 18 Rate Blood Pressure 129/79 O2 Sat by Pulse 95 Oximetry Disposition Clinical Impression: Arguelles's palsy, Chronic renal failure Disposition: HOME SELF-CARE Condition: Good Instructions (If sedation given, give patient instructions): Arguelles Palsy (ED) Additional Instructions: ALLERGY eyedrops when necessary to the right I also tape the eye shut at night when necessary, follow up with Dr. Jon this week Prescriptions: Famciclovir [Famvir] 500 mg PO Q12HR #14 tablet Is patient prescribed a controlled substance at d/c from ED?: No Referrals: Pablo Jon MD [Primary Care Provider] - 1-2 days Decision Date: 01/04/23 Decision Time: 18:53
[2023-01-04 16:53] VITALS: PULSE 65; TEMP 97
--- NOTE | 2023-01-04 17:23 | CT ---
EXAMINATION TYPE: CT brain wo con DATE OF EXAM: 01/04/2023 COMPARISON: 09/27/2013 HISTORY: weakness, ams CT DLP: 1150.[address] of the brain was performed. The ventricles, basal cisterns and sulci overlying the cerebral convexities demonstrate mild enlargem ent. There is a remote insult seen. There is no evidence for intracranial hemorrhage or sulcal effacement. There is decreased attenuation about the periventricular white matter and deep white matter of both c erebral hemispheres, compatible with chronic small vessel ischemia. Differential diagnosis does inclu de demyelination. No mass effects are seen.No midline shift. No evidence for calvarial fracture. Craniotomy changes noted on the right. If symptoms persist consider MRI. IMPRESSION: 1. Age related atrophic and chronic small vessel ischemic change without acute intracranial process s een at this time.
--- NOTE | 2023-01-04 17:24 | XR ---
EXAMINATION TYPE: XR chest 2V DATE OF EXAM: 01/04/2023 COMPARISON: 08/03/2022 HISTORY: Shortness of breath TECHNIQUE: Frontal and lateral views of the chest are obtained. FINDINGS: Scattered senescent parenchymal changes noted. Hyperinflation compatible with COPD. Increased right lower lobe density may reflect a combination of effusion and infiltrate. The left roxanne g is clear at this time. Heart size is stable. Mediastinal structures are stable and grossly unremarkable. No evidence for hilar prominence. Degenerative changes dorsal spine. IMPRESSION: 1. Increased right lower lobe density may reflect a combination of effusion and infiltrate.
[2023-01-04 17:37] LABS: Anisocytosis Slight; Basophils % (A) 0 %; Eosinophils # (A) 0.1 k/uL (0-0.7); Eosinophils % (A) 1 %; HCT 35.5 % (39.0-53.0); HGB 12.2 gm/dL (13.0-17.5); Lymphocytes # (A) 0.4 k/uL (1.0-4.8); Lymphocytes % (A) 9 %; MCH 30.2 pg (25.0-35.0); MCHC 34.3 g/dL (31.0-37.0); MCV 88.1 fL (80.0-100.0); Mean Platelet Volume 7.6; Monocytes # (A) 0.3 k/uL (0-1.0); Monocytes % (A) 8 %; Neutrophils # (A) 3.1 k/uL (1.3-7.7); Neutrophils % (A) 79 %; Platelet Count 200 k/uL (150-450); RBC 4.03 m/uL (4.30-5.90); RDW 18.1 % (11.5-15.5); WBC 3.9 k/uL (3.8-10.6)
[2023-01-04 17:47] LABS: Albumin 3.7 g/dL (3.5-5.0); Calcium 10.1 mg/dL (8.4-10.2); Potassium 4.1 mmol/L (3.5-5.1); Total Bilirubin 0.4 mg/dL (0.2-1.3); Total Protein 6.1 g/dL (6.3-8.2)
[2023-01-04 17:48] LABS: Partial Thromboplastin Time 25.7 sec (22.0-30.0); Prothrombin Time 10.3 sec (9.0-12.0)
[2023-01-04] MEDS ORDERED: FAMCICLOVIR 500 MG TAB PO STA (18:28)
[2023-01-04] MEDS ORDERED: cefTRIAXone IN SWFI 1,000 MG/10 ML SYRINGE IVP STA (18:47)
[2023-01-04 19:02] VITALS: BP 156/68; RESP 16
== END 2023-01-04 19:02 | disposition home or self-care (01) ==
LOC: EC 16:20
DX: G51.0 Bell's palsy (principal); N18.9 Chronic kidney disease, unspecified; I12.9 Hypertensive chronic kidney disease with stage 1 through stage 4 chronic kidney disease, or unspecified chronic kidney disease; E11.22 Type 2 diabetes mellitus with diabetic chronic kidney disease; I48.91 Unspecified atrial fibrillation; I25.10 Atherosclerotic heart disease of native coronary artery without angina pectoris; E11.9 Type 2 diabetes mellitus without complications; E78.5 Hyperlipidemia, unspecified; I25.2 Old myocardial infarction; M19.90 Unspecified osteoarthritis, unspecified site; G47.30 Sleep apnea, unspecified; Z79.84 Long term (current) use of oral hypoglycemic drugs; Z79.899 Other long term (current) drug therapy; Z79.4 Long term (current) use of insulin; Z79.01 Long term (current) use of anticoagulants
CPT/HCPCS: 36415; 70450; 71046; 80053; 82550; 84484; 85025; 85610; 85730; 93005; 99285

== ENCOUNTER 2023-01-12 08:48 | Inpatient (IN) | payer MEDICARE ==
[2023-01-12 09:13] LABS: Anisocytosis Slight; Basophils % (A) 0 %; Eosinophils % (A) 1 %; HCT 31.9 % (39.0-53.0); HGB 11.1 gm/dL (13.0-17.5); Lymphocytes # (A) 0.2 k/uL (1.0-4.8); Lymphocytes % (A) 10 %; MCH 30.1 pg (25.0-35.0); MCHC 34.8 g/dL (31.0-37.0); MCV 86.6 fL (80.0-100.0); Mean Platelet Volume 8.3; Monocytes # (A) 0.1 k/uL (0-1.0); Monocytes % (A) 2 %; Neutrophils # (A) 1.9 k/uL (1.3-7.7); Neutrophils % (A) 85 %; Platelet Count 104 k/uL (150-450); RBC 3.69 m/uL (4.30-5.90); RDW 19.8 % (11.5-15.5); WBC 2.2 k/uL (3.8-10.6)
[2023-01-12 09:23] LABS: Partial Thromboplastin Time 29.1 sec (22.0-30.0); Prothrombin Time 10.5 sec (9.0-12.0)
--- NOTE | 2023-01-12 09:24 | XR ---
EXAMINATION TYPE: XR chest 2V DATE OF EXAM: 01/12/2023 COMPARISON: Chest x-ray January 04, 2023 HISTORY: Weakness. TECHNIQUE: Frontal and lateral views of the chest are obtained. FINDINGS: Overlying sternal wires and mediastinal clips are redemonstrated. Persistent moderate size right pleural effusion and mild to moderate central vascular congestion and right basilar opacity.. Left lung is clear. Persistent cardiomegaly. Lateral right lower thoracic surgical clips redemonstrat ed. Osseous structures are intact. IMPRESSION: Cardiomegaly with mild central vascular congestion and small to moderate size right pleu ral effusion with associated right basilar atelectasis and/or infiltrate are all redemonstrated. No s ignificant change from most recent chest x-ray. Correlate clinically.
[2023-01-12 09:39] LABS: Albumin 3.5 g/dL (3.5-5.0); Calcium 9.9 mg/dL (8.4-10.2); Magnesium 2.4 mg/dL (1.6-2.3); Potassium 3.9 mmol/L (3.5-5.1); Total Bilirubin 0.3 mg/dL (0.2-1.3); Total Protein 5.8 g/dL (6.3-8.2)
--- NOTE | 2023-01-12 09:48 | CT ---
EXAMINATION TYPE: CT brain wo con CT DLP: 1218.4 mGycm, Automated exposure control for dose reduction was used. DATE OF EXAM: 01/12/2023 9:29 AM COMPARISON: CT brain 01/04/2023 CLINICAL INDICATION:Male, 72 years old with history of weakness, Altered mental status. TECHNIQUE: Brain: Multiple axial CT images of the brain were obtained without IV contrast. Coronal and sagittal reformats reviewed. FINDINGS: Brain: Extra-axial spaces: No abnormal extra-axial fluid collections. Ventricular system: Dilatation in proportion to cerebral atrophy. Similar ex vacuo dilatation of the right lateral ventricle. Cerebral parenchyma: Cerebral atrophy. No acute intraparenchymal hemorrhage or mass effect. The fraser -white junction is well differentiated. Scattered hypoattenuating areas are seen within the white mat ter. Remote injury to the right frontal lobe near the vertex. Cerebellum: Unremarkable. Mass effect: No evidence of midline shift. Intracranial vasculature: Atherosclerotic calcifications of the intracranial vessels. Soft tissues: Normal. Calvarium/osseous structures: No depressed skull fracture. Postsurgical changes from craniotomy redem onstrated on the right. Paranasal sinuses and mastoid air cells: The mastoid air cells are clear. Similar suggested 1.3 cm mu cous retention cyst within the left maxillary sinus. Visualized orbits: Bilateral aphakia IMPRESSION: 1. No acute intracranial process. 2. Nonspecific white matter changes, likely secondary to chronic small vessel ischemic disease. 3. Similar postsurgical changes with a right frontal lobe remote injury.
[2023-01-12] MEDS ORDERED: NALOXONE 0.4 MG/ML 1 ML VIAL IV PRN (10:46)
[2023-01-12 10:49] LABS: Appearance,Urine Clear (Clear); Bilirubin,Urine Negative (Negative); Blood,Urine Negative (Negative); Color,Urine Yellow; Glucose,Urine (UA) 2+ (Negative); Ketones,Urine Negative (Negative); Leukocyte Esterase,Urine Negative (Negative); Nitrite,Urine Negative (Negative); Protein,Urine 1+ (Negative); RBC,Urine 1 /hpf (0-5); Specific Gravity,Urine 1.016 (1.001-1.035); Urobilinogen,Urine <2.0 mg/dL (<2.0); WBC,Urine 1 /hpf (0-5)
--- NOTE | 2023-01-12 10:54 | ED ---
General Adult HPI - General Chief complaint: Weakness Stated complaint: AMS Time Seen by Provider: 01/12/23 08:49 Source: patient, EMS, RN notes reviewed, old records reviewed Mode of arrival: EMS Limitations: altered mental status - History of Present Illness Initial comments: 72-year-old male presents by paramedics for evaluation of altered mental status. Patient has multiple medical conditions and was noted by family to have increased confusion. He is on peritoneal dialysis. He had peritoneal fluid placed this morning and this has not been drained. Paramedics had a measured blood pressure in the 80 systolic. Patient has not had any new medications. There was no reported fever. Patient denies pain complaints. - Related Data Home Medications Medication Instructions Recorded Confirmed Tamsulosin HCl [Flomax] 0.4 mg PO BID 06/19/15 01/12/23 amLODIPine [Norvasc] 5 mg PO BID 07/09/16 01/12/23 Pravastatin Sodium [Pravachol] 40 mg PO HS 03/21/21 01/12/23 allopurinoL [Zyloprim] 100 mg PO DAILY 03/21/21 01/12/23 hydrALAZINE HCL [Apresoline] 50 mg PO BID 03/21/21 01/12/23 Amiodarone [Cordarone] 200 mg PO DAILY 02/07/22 01/12/23 Metoprolol Succinate (ER) [Toprol 25 mg PO DAILY 02/07/22 01/12/23 XL] Lidocaine-Prilocaine Cream [Emla 1 applic TOPICAL DAILY PRN 06/03/22 01/12/23 Cream 2.5%/2.5%] INSULIN ASPART (NovoLOG) [NovoLOG See Protocol SQ ACHS PRN 07/31/22 01/12/23 (formulary)] Insulin Glargine,Hum.rec.anlog 35 units SQ HS 09/17/22 01/12/23 [Lantus Solostar Pen] Torsemide [Demadex] 20 mg PO BID 09/17/22 01/12/23 Apixaban [Eliquis] 5 mg PO DAILY 01/04/23 01/12/23 Exemestane [Aromasin] 25 mg PO DAILY 01/04/23 01/12/23 Lactulose 10 gm PO DAILY PRN 01/04/23 01/12/23 Potassium Chloride ER [K-Dur 20] 20 meq PO DAILY 01/04/23 01/12/23 metOLazone [Zaroxolyn] 5 mg PO DAILY 01/04/23 01/12/23 Previous Rx's Medication Instructions Recorded Famciclovir [Famvir] 500 mg PO Q12HR #14 tablet 01/04/23 Allergies Allergy/AdvReac Type Severity Reaction Status Date / Time Penicillins Allergy Unknown Rash/Hives Verified 01/12/23 08:56 adhesive AdvReac skin Verified 01/12/23 08:56 tears-paper tape is better but still will tear Review of Systems ROS Statement: Those systems with pertinent positive or pertinent negative responses have been documented in the HPI. ROS Other: All systems not noted in ROS Statement are negative. Past Medical History Past Medical History: Atrial Fibrillation, Atrial Flutter, Coronary Artery Disease (CAD), Cancer, Diabetes Mellitus, Deep Vein Thrombosis (DVT), Eye Disorder, GERD/Reflux, Hyperlipidemia, Hypertension, Myocardial Infarction (OR), Neurologic Disorder, Osteoarthritis (OA), Prostate Disorder, Renal Disease, Sleep Apnea/CPAP/BIPAP Additional Past Medical History / Comment(s): currently has Hemodialysis MWF-4 Hrs-has port left shoulder., rt breast [place]-Spring 2021,Blind in right eye. Hx encephalopathy, meningioma with left sided weakness, cannot use left leg, wheelchair bound. PT CAN'T HAVE ANY VACCINES THAT ARE LIVE VIRUSES. PLEASE USE PAPER TAPE ONLY(PT HAS THIN SKIN). uses slide board at home to transfer pt to w/c, with 2 person assist pt can stand/pivot to chair,uses cpap, uses O2 @ 2l [place] prn Last Myocardial Infarction Date:: 02-11-2005 History of Any Multi-Drug Resistant Organisms: None Reported Past Surgical History: Adenoidectomy, Breast Surgery, Cardiac Ablation, Cholecystectomy, Coronary Bypass/CABG, Heart Catheterization With Stent, Orthopedic Surgery, Tonsillectomy Additional Past Surgical History / Comment(s): Triple bypass, Meningioma Removed from Brain 04/2013, peg tube- removed 9 years ago, DESTINEY FILTER, BILATERAL CATARACTS- LENS IMPLANTS, COLONOSCOPY/POLYPECTOMY, RIGHT KNEE ARTHROSCOPY, 07/21/22 right breast mastectomy Past Anesthesia/Blood Transfusion Reactions: No Reported Reaction Date of Last Stent Placement:: 2004 Past Psychological History: Depression Smoking Status: Never smoker - Past Family History Father History Unknown: Yes Family Medical History: Congestive Heart Failure (CHF) Mother History Unknown: Yes Additional Family Medical History / Comment(s): at age 90 General Exam Limitations: altered mental status General appearance: in no apparent distress, lethargic Head exam: Present: atraumatic, normocephalic Eye exam: Present: other (left pupil is 2 mm sluggish, corneal clouding of the right eye) ENT exam: Present: mucous membranes dry Neck exam: Present: normal inspection. Absent: tenderness, meningismus Respiratory exam: Present: decreased breath sounds. Absent: respiratory distress, wheezes Cardiovascular Exam: Present: regular rate, normal rhythm GI/Abdominal exam: Present: soft, other (Peritoneal catheter site is clean and dry). Absent: distended, tenderness Extremities exam: Present: pedal edema (Left leg edema chronic) Neurological exam: Present: alert, motor sensory deficit (Right-sided facial droop, left leg paralysis). Absent: oriented X3 Skin exam: Present: dry. Absent: cyanosis, diaphoretic Course Vital Signs 01/12/23 01/12/23 01/12/23 08:49 09:00 09:02 Temperature 90.9 F L 92.3 F L Pulse Rate 65 64 Respiratory 16 20 Rate Blood Pressure 121/50 121/50 O2 Sat by Pulse 97 96 Oximetry EKG Findings - EKG Comments: EKG Findings:: EKG: Narrow complex regular rhythm rate of 65, suspect first- degree AV block with [place] of 277, QRS duration 122, QTC [address] segment nelly vation. Medical Decision Making - Medical Decision Making Was pt. sent in by a medical professional or institution (, PA, SANDWICH WRAPPER, urgent care, hospital, or detention...) When possible be specific @ -No Did you speak to anyone other than the patient for history (EMS, parent, family, police, friend...)? What history was obtained from this source @ -No Did you review nursing and triage notes (agree or disagree)? Why? @ -I reviewed and agree with nursing and triage notes Were old charts reviewed (outside hosp., previous admission, EMS record, old EKG, old radiological studies, urgent care reports/EKG's, detention records)? Report findings @ -Recent ER visit Differential Diagnosis (chest pain, altered mental status, abdominal pain women, abdominal pain men, vaginal bleeding, weakness, fever, dyspnea, syncope, headache, dizziness, GI bleed, back pain, seizure, CVA, palpatations, mental health, musculoskeletal)? @ Differential Altered Mental Status: Hypoglycemia, DKA, hypercapnia, ETOH, overdose, CO poisoning, trauma, myxedema coma, HTN encephalopathy, infection, encephalitis, psychosis, intercranial hemorrhage, hepatic encephalopathy, meningitis, CVA, this is not meant to be an all-inclusive list EKG interpreted by me (3pts min.). @ -As above X-rays interpreted by me (1pt min.). @ Chronic stable infiltrate CT interpreted by me (1pt min.). @Negative for acute intracranial findings U/S interpreted by me (1pt. min.). @ -None done What testing was considered but not performed or refused? (CT, X-rays, U/S, labs)? Why? @ -None What meds were considered but not given or refused? Why? @ -None Did you discuss the management of the patient with other professionals (professionals i.e. , PA, SANDWICH WRAPPER, lab, RT, psych nurse, social psychologist, supervisor cap and hat production, teacher, surveillance dual rate officer, case finisher)? Give summary @ Dr. Jon Was smoking cessation discussed for >3mins.? @ -No Was critical care preformed (if so, how long)? @ -No Were there social determinants of health that impacted care today? How? (Homelessness, low income, unemployed, alcoholism, drug addiction, transportation, low edu. Level, literacy, decrease access to med. care, shelter, rehab)? @ -No Was there de-escalation of care discussed even if they declined (Discuss DNR or withdrawal of care, Hospice)? DNR status @ -No What co-morbidities impacted this encounter? (DM, HTN, Smoking, COPD, CAD, Cancer, CVA, ARF, Chemo, Hep., AIDS, mental health diagnosis, sleep apnea, morbid obesity)? @ -End-stage renal disease Was patient admitted / discharged? Hospital course, mention meds given and route, prescriptions, significant lab abnormalities, going to OR and other pertinent info. @ 72-year-old male with altered mental status, acute confusion. Patient is able to answer simple questions. He is currently being treated for end-stage renal disease on peritoneal dialysis. Patient found to be hypotensive and hypothermic. There is concern for disseminated infection. He had recent shingles according to the primary care physician. He started on IV antibiotics and IV antivirals. He is performed with external warming device in the emergency department. He will be admitted with both neurology and infectious disease on consult. Undiagnosed new problem with uncertain prognosis? @ -No Drug Therapy requiring intensive monitoring for toxicity (Heparin, Nitro, Insulin, Cardizem)? @ -No Were any procedures done? @ -No Diagnosis/symptom? @ Altered mental status, sepsis Acute, or Chronic, or Acute on Chronic? @ -Acute Uncomplicated (without systemic symptoms) or Complicated (systemic symptoms)? @ -Complicated Side effects of treatment? @ -No Exacerbation, Progression, or Severe Exacerbation? @ -No Poses a threat to life or bodily function? How? (Chest pain, USA, OR, pneumonia, PE, COPD, DKA, ARF, appy, cholecystitis, CVA, Diverticulitis, Homicidal, Suicidal, threat to staff... and all critical care pts) @ -Yes, hypotension, septic shock - Lab Data Result diagrams: 01/12/23 08:57 01/12/23 08:57 Lab Results 01/12/23 01/12/23 01/12/23 Range/Units 08:57 08:57 08:57 WBC 2.2 L (3.8-10.6) k/uL RBC 3.69 L (4.30-5.90) m/uL Hgb 11.1 L (13.0-17.5) gm/dL Hct 31.9 L (39.0-53.0) % MCV 86.6 (80.0-100.0) fL MCH 30.1 (25.0-35.0) pg MCHC 34.8 (31.0-37.0) g/dL RDW 19.8 H (11.5-15.5) % Plt Count 104 L (150-450) k/uL MPV 8.3 Neutrophils % 85 % Lymphocytes % 10 % Monocytes % 2 % Eosinophils % 1 % Basophils % 0 % Neutrophils # 1.9 (1.3-7.7) k/uL Lymphocytes # 0.2 L (1.0-4.8) k/uL Monocytes # 0.1 (0-1.0) k/uL Eosinophils # 0.0 (0-0.7) k/uL Basophils # 0.0 (0-0.2) k/uL Anisocytosis Slight PT 10.5 (9.0-12.0) sec INR 1.0 (<1.2) APTT 29.1 (22.0-30.0) sec Sodium 132 L (137-145) mmol/L Potassium 3.9 (3.5-5.1) mmol/L Chloride 96 L (98-107) mmol/L Carbon Dioxide 25 (22-30) mmol/L Anion Gap 11 mmol/L BUN 43 H (9-20) mg/dL Creatinine 4.01 H (0.66-1.25) mg/dL Est GFR (CKD-EPI)AfAm 16 (>60 ml/min/1.73 sqM) Est GFR (CKD-EPI)NonAf 14 (>60 ml/min/1.73 sqM) Glucose 167 H (74-99) mg/dL Plasma Lactic Acid Micah (0.7-2.0) mmol/L Calcium 9.9 (8.4-10.2) mg/dL Magnesium 2.4 H (1.6-2.3) mg/dL Total Bilirubin 0.3 (0.2-1.3) mg/dL AST 31 (17-59) U/L ALT 48 (4-49) U/L Alkaline Phosphatase 82 (38-126) U/L Troponin I (0.000-0.034) ng/mL Total Protein 5.8 L (6.3-8.2) g/dL Albumin 3.5 (3.5-5.0) g/dL TSH 4.610 (0.465-4.680) mIU/L 01/12/23 01/12/23 Range/Units 08:57 08:57 WBC (3.8-10.6) k/uL RBC (4.30-5.90) m/uL Hgb (13.0-17.5) gm/dL Hct (39.0-53.0) % MCV (80.0-100.0) fL MCH (25.0-35.0) pg MCHC (31.0-37.0) g/dL RDW (11.5-15.5) % Plt Count (150-450) k/uL MPV Neutrophils % % Lymphocytes % % Monocytes % % Eosinophils % % Basophils % % Neutrophils # (1.3-7.7) k/uL Lymphocytes # (1.0-4.8) k/uL Monocytes # (0-1.0) k/uL Eosinophils # (0-0.7) k/uL Basophils # (0-0.2) k/uL Anisocytosis PT (9.0-12.0) sec INR (<1.2) APTT (22.0-30.0) sec Sodium (137-145) mmol/L Potassium (3.5-5.1) mmol/L Chloride (98-107) mmol/L Carbon Dioxide (22-30) mmol/L Anion Gap mmol/L BUN (9-20) mg/dL Creatinine (0.66-1.25) mg/dL Est GFR (CKD-EPI)AfAm (>60 ml/min/1.73 sqM) Est GFR (CKD-EPI)NonAf (>60 ml/min/1.73 sqM) Glucose (74-99) mg/dL Plasma Lactic Acid Micah 1.4 (0.7-2.0) mmol/L Calcium (8.4-10.2) mg/dL Magnesium (1.6-2.3) mg/dL Total Bilirubin (0.2-1.3) mg/dL AST (17-59) U/L ALT (4-49) U/L Alkaline Phosphatase (38-126) U/L Troponin I <0.012 (0.000-0.034) ng/mL Total Protein (6.3-8.2) g/dL Albumin (3.5-5.0) g/dL TSH (0.465-4.680) mIU/L Disposition Clinical Impression: Pneumonia, Chronic renal failure, AMS (altered mental status), Hypothermia Disposition: ADMITTED IP TO THIS HOSP Condition: Serious Is patient prescribed a controlled substance at d/c from ED?: No Referrals: Pablo Jon MD [Primary Care Provider] - 1-2 days Time of Disposition: 10:54
[2023-01-12] MEDS: SODIUM CHLORIDE 0.9% 1,000 ML IV SCH (11:09)
[2023-01-12] MEDS ORDERED: ACYCLOVIR SODIUM 800 MG in SODIUM CHLORIDE 0.9% 100 ML IVPB ONE (11:30)
[2023-01-12] MEDS ORDERED: LACTULOSE 20 GM/30 ML CUP PO PRN (12:51)
[2023-01-12] MEDS ORDERED: DIALYSIS (PERIT 1.5%) 2,500 ML 37.5 G/2,500 ML BAG INTRAPERIT SCH (14:30)
--- NOTE | 2023-01-12 14:50 | P.CNNES ---
History of Present Illness Consult date: 01/12/23 Requesting physician: Lupillo Mejia Reason for Consult: AMS History of Present Illness: Patient is a 72-year-old right-handed male with history of hypertension, diabetes, hyperlipidemia, end-stage renal disease, on peritoneal dialysis came to the hospital by ambulance today at 8:48 AM for acute episode of altered mental status. Patient's was also present, who provided most of the history. She states that this morning she started him on his home peritoneal dialysis at around 7:30 to 8 AM. When she went in, told him that he she was going to start him on dialysis and he said "okay". He did not speak much. She does the. Peroneal dialysis on him 4 times a day. After she started him on the dialysis, she left and when she came back to ask him for the breakfast, and he did not respond like he usually does and he was kind of incoherent when talking. Patient's states that it was difficult for him to form the words. She got concerned therefore called the ambulance. EMS flow sheet not available in the chart. Vital signs on arrival blood pressure 121/50, pulse rate 65 temperature 90.9 Fahrenheit rectally. It improved to 92.3 Fahrenheit rectally. Blood test shows WBC 2.2 hemoglobin 11.1, platelets 104. PT/PTT normal, sodium 132 potassium 3.9, BUN 43, creatinine 4.01, hepatic panel is normal, troponin negative, TSH normal. UA negative, influenza screen, RSV and milton virus PCR negative. CT head revealed no acute process. I personally reviewed CT head, and on my review, there is evidence of old encephalomalacia involving the right parietal parasagittal region, likely due to previous falx meningioma resection. EKG shows sinus rhythm with first- degree AV block. Chest x-ray revealed cardiomegaly with mild central vascular congestion and small to moderate size right pleural effusion with associated right basilar atelectasis and/or infiltrate are all to be demonstrated. No significant change from the most recent chest x-ray. Correlate clinically. Patient's states that patient has history of cerebral meningioma that was resected 10 years ago. It has resulted in residual left-sided weakness, mainly involving the left leg. He has no history of seizures. No new focal weakness otherwise besides his speech difficulty. 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 No history of tobacco or alcohol use. He does have a history of hypertension, hyperlipidemia and diabetes. At present patient's believes that he is about 50% improved, still not back to baseline. Review of Systems Constitutional: Denies chills, Denies fever Eyes: right loss of vision (Chronic due to corneal opacity), denies diplopia Ears: right: earache (Since singles), deny: decreased hearing, ear discharge Ears, nose, mouth and throat: Denies headache, Denies sore throat Cardiovascular: Reports shortness of breath, Denies chest pain Respiratory: Denies cough, Denies excessive sputum, Denies hemoptysis Gastrointestinal: Denies abdominal pain, Denies diarrhea, Denies nausea, Denies vomiting Musculoskeletal: Denies myalgias, Denies neck pain Integumentary: Denies pruritus, Denies rash Neurological: Reports as per HPI Psychiatric: Denies anxiety, Denies depression Endocrine: Reports fatigue, Denies weight change Past Medical History Past Medical History: Atrial Fibrillation, Atrial Flutter, Coronary Artery Disease (CAD), Cancer, Diabetes Mellitus, Deep Vein Thrombosis (DVT), Eye Disorder, GERD/Reflux, Hyperlipidemia, Hypertension, Myocardial Infarction (OR), Neurologic Disorder, Osteoarthritis (OA), Prostate Disorder, Renal Disease, Sleep Apnea/CPAP/BIPAP Additional Past Medical History / Comment(s): currently has Hemodialysis MWF-4 Hrs-has port left shoulder., rt breast [place]-Spring 2021,Blind in right eye. Hx encephalopathy, meningioma with left sided weakness, cannot use left leg, wheelchair bound. PT CAN'T HAVE ANY VACCINES THAT ARE LIVE VIRUSES. PLEASE USE PAPER TAPE ONLY(PT HAS THIN SKIN). uses slide board at home to transfer pt to w/c, with 2 person assist pt can stand/pivot to chair,uses cpap, uses O2 @ 2l [place] prn Last Myocardial Infarction Date:: 02-11-2005 History of Any Multi-Drug Resistant Organisms: None Reported Past Surgical History: Adenoidectomy, Breast Surgery, Cardiac Ablation, Cholecystectomy, Coronary Bypass/CABG, Heart Catheterization With Stent, Orthopedic Surgery, Tonsillectomy Additional Past Surgical History / Comment(s): Triple bypass, Meningioma Removed from Brain 04/2013, peg tube- removed 9 years ago, DESTINEY FILTER, BILATERAL CATARACTS- LENS IMPLANTS, COLONOSCOPY/POLYPECTOMY, RIGHT KNEE ARTHROSCOPY, 07/21/22 right breast mastectomy Past Anesthesia/Blood Transfusion Reactions: No Reported Reaction Date of Last Stent Placement:: 2004 Past Psychological History: Depression Smoking Status: Never smoker - Past Family History Father History Unknown: Yes Family Medical History: Congestive Heart Failure (CHF) Mother History Unknown: Yes Additional Family Medical History / Comment(s): at age 90 Medications and Allergies Home Medications Medication Instructions Recorded Confirmed Type Tamsulosin HCl [Flomax] 0.4 mg PO BID 06/19/15 01/12/23 History amLODIPine [Norvasc] 5 mg PO BID 07/09/16 01/12/23 History Pravastatin Sodium [Pravachol] 40 mg PO HS 03/21/21 01/12/23 History allopurinoL [Zyloprim] 100 mg PO DAILY 03/21/21 01/12/23 History hydrALAZINE HCL [Apresoline] 50 mg PO BID 03/21/21 01/12/23 History Amiodarone [Cordarone] 200 mg PO DAILY 02/07/22 01/12/23 History Metoprolol Succinate (ER) [Toprol 25 mg PO DAILY 02/07/22 01/12/23 History XL] Lidocaine-Prilocaine Cream [Emla 1 applic TOPICAL DAILY PRN 06/03/22 01/12/23 History Cream 2.5%/2.5%] INSULIN ASPART (NovoLOG) [NovoLOG See Protocol SQ ACHS PRN 07/31/22 01/12/23 History (formulary)] Insulin Glargine,Hum.rec.anlog 35 units SQ HS 09/17/22 01/12/23 History [Lantus Solostar Pen] Torsemide [Demadex] 20 mg PO BID 09/17/22 01/12/23 History Apixaban [Eliquis] 5 mg PO DAILY 01/04/23 01/12/23 History Exemestane [Aromasin] 25 mg PO DAILY 01/04/23 01/12/23 History Famciclovir [Famvir] 500 mg PO Q12HR #14 tablet 01/04/23 01/12/23 Rx Lactulose 10 gm PO DAILY PRN 01/04/23 01/12/23 History Potassium Chloride ER [K-Dur 20] 20 meq PO DAILY 01/04/23 01/12/23 History metOLazone [Zaroxolyn] 5 mg PO DAILY 01/04/23 01/12/23 History Allergies Allergy/AdvReac Type Severity Reaction Status Date / Time Penicillins Allergy Unknown Rash/Hives Verified 01/12/23 08:56 adhesive AdvReac skin Verified 01/12/23 08:56 tears-paper tape is better but still will tear Physical Examination - Vital Signs Vital Signs: Vital Signs Temp Pulse Resp BP Pulse Ox 01/12/23 11:00 92.5 F L 64 18 112/57 92 L 01/12/23 10:30 63 18 100/70 96 01/12/23 10:00 61 20 98/58 99 01/12/23 09:02 92.3 F L 01/12/23 09:00 90.9 F L 64 20 121/50 96 01/12/23 08:49 65 16 121/50 97 Intake and Output 01/11/23 01/12/23 01/12/23 22:59 06:59 14:59 Other: Weight 102.058 kg Patient is an elderly male, who is in no acute distress. Patient is encephalopathic, slow mentation, but does wake up, and answers appropriately. Patient states it is December and the year is 2021. He knows that he is in [facility] in [place] and name of the current president. Speech and language functions are normal. Patient can name and repeat very well. No aphasia or dysarthria. Attention, concentration and fund of knowledge is slightly limited. On cranial nerve examination, patient's right eye has obvious corneal scarring, and he has no vision in the right eye. Left pupil is round and reacting. His visual miller are full on confrontation, with no neglect on double simultaneous stimulation with the left eye. Extraocular muscles are intact with no nystagmus. Patient has right facial weakness, peripheral type. His tongue protrudes the midline. No evidence of tongue trauma. Palatal elevation and sensation normal, hearing is slightly decreased and shoulder shrug normal, facial sensation normal. On muscle strength testing, there is no pronator drift and the strength is normal in arms distally and proximally. in the lower extremities, hip flexion is (right/left) 4+/1-2, ankle dorsiflexion 5/2. Deep tendon reflexes are symmetric absent in the upper limbs and lower limbs, and plantar is up on the right, flat on the left. Sensory to touch is equal in the arms with no neglect on double simultaneous stimulation. Patient's sensation is decreased in the left lower limb as compared to the right lower limb. Cerebellar function showed no ataxia for [id number] testing on either side. Cannot check [id number] testing on either side. Tone and bulk of muscles normal. Gait patient nonambulatory. Patient has a motorized scooter. Patient's uses slide board as he can pivot from chair to the bed with the sliding board. On general examination, there is no carotid bruit or murmur, S1-S2 audible. Chest is clear on consultation. Abdomen is soft nontender. No organomegaly, bowel sounds present. Patient has edema in the left lower limb. Patient has hammertoes on the right side. Results - Laboratory Findings CBC and BMP: 01/12/23 08:57 01/12/23 08:57 Abnormal Lab Findings: Abnormal Labs 01/12/23 01/12/23 01/12/23 08:57 08:57 09:52 WBC 2.2 L RBC 3.69 L Hgb 11.1 L Hct 31.9 L RDW 19.8 H Plt Count 104 L Lymphocytes # 0.2 L Sodium 132 L Chloride 96 L BUN 43 H Creatinine 4.01 H Glucose 167 H Magnesium 2.4 H Total Protein 5.8 L Urine Protein 1+ H Urine Glucose (UA) 2+ H Assessment and Plan Assessment: * Altered mental status, likely due to toxic metabolic encephalopathy * Acute hypothermia, hypotension, possible sepsis. Patient still hypothermic with core temperature 93.4. * Mild pancytopenia, unclear cause * End-stage renal disease on peritoneal dialysis * History of Atrial fibrillation, on Eliquis * Recent history of shingles with reported right Arguelles's palsy 01/04/2023. * History of cerebral meningioma probably involving right parietal falx region, as per CT findings, status post resection 10 years ago, with residual left leg weakness. * Hypertension * Diabetes * Coronary artery disease * Hyperlipidemia * Right eye blindness, chronic * Obesity Plan: * EEG to rule out any epileptiform activity * Carotid Doppler * Treatment of hypothermia, hyponatremia as per IM. * Continue Eliquis 5 mg daily for previous history of atrial fibrillation. * Agree with infectious disease consult to evaluate for sepsis. * Patient reportedly recently suffered from shingles. Patient has been started on acyclovir intravenously. Await ID consult. * Neurology will follow. Thank you for the consult. Time with Patient: Greater than 30
[2023-01-12] MEDS: APIXABAN 2.5 MG TABLET PO SCH ×2 (16:35→21:59)
[2023-01-12] MEDS ORDERED: ACYCLOVIR SODIUM 800 MG in SODIUM CHLORIDE 0.9% 100 ML IVPB SCH (20:00)
[2023-01-12 21:04] LABS: Glucose,Whole Blood 185 mg/dL (70-110)
--- NOTE | 2023-01-12 21:42 | US ---
EXAMINATION TYPE: US carotid duplex BILAT DATE OF EXAM: 01/12/2023 COMPARISON: NONE CLINICAL INDICATION: Male, 72 years old with history of AMS, speech difficulty; TECHNIQUE: Carotid duplex ultrasound examination. Indirect Doppler criteria was utilized. 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 50-69% stenosis of the right carotid bifurcation. 2. Less than 50% stenosis of the left carotid bifurcation. Criteria for Assigning % of Stenosis / Diameter reduction (Estimation based on the indirect measurements of the internal carotid artery velocities (ICA PSV). 1. Normal (no stenosis)=ICA PSV < 125 cm/s: ratio < 2.0: ICA EDV<40 cm/s. 2. Less than 50% stenosis=ICA PSV < 125 cm/s: ratio < 2.0: ICA EDV<40 cm/s. 3. 50 to 69% stenosis=ICA PSV of 125 to 230 cm/s: ration 2.0 ? 4.0: ICA EDV 40-100 cm/s. 4. Greater than 70% stenosis to near occlusion= ICA PSV > 230 cm/s: ratio > 4.0: ICA EDV > 100 cm/s. 5. Near occlusion= ICA PSV velocities may be low or undetectable: variable ratio and ICA EDV. 6. Total occlusion=unable to detect flow.
[2023-01-12] MEDS: hydrALAZINE HCL 50 MG TAB PO SCH (21:47)
[2023-01-12] MEDS: amLODIPine 5 MG TAB PO SCH (21:47)
[2023-01-12] MEDS: TORSEMIDE 20 MG TAB PO SCH (21:47)
[2023-01-12] MEDS: INSULIN DETEMIR (LEVEMIR) 100 UNIT/ML SYR SQ SCH (21:59)
[2023-01-12] MEDS: TAMSULOSIN 0.4 MG CAP.ER.24H PO SCH (21:59)
[2023-01-12] MEDS: PRAVASTATIN SODIUM 40 MG TAB PO SCH (21:59)
--- NOTE | 2023-01-12 22:24 | P.CONS ---
History of Present Illness - Reason for Consult Consult date: 01/12/23 Sepsis Requesting physician: Lupillo Mejia - Chief Complaint Weakness and mental status changes x one day - History of Present Illness Patient is a 72-year-old male with a past medical history significant for end-stage renal disease on peritoneal dialysis for about 8 months now patient has been brought into the ER for evaluation of mental status changes a pparently the patient was noticed to have increased confusion this morning EMS was calling and the patient was noticed to be hypotensive with a blood pressure of 80 systolic patient was brought into the ER on arrival to the ER the patient was hypothermic with a core temperature of 90.9 F patient was hypotensive did have a leukopenia elevated BUN/creatinine level exams are normal urine was negative influenza RSV and COVID testing was negative CT of the brain was negative for any bleed chest x-ray with cardiomegaly and mild central venous congestion patient was given a dose of Rocephin and acyclovir infectious disease was consulted for further management and concern for possible encephalitis/ sepsis, patient did have a peritoneal dialysis fluid inserted this morning but not drained mention fluid has been slightly yellow since yesterday no clear history of any fever patient is more awake and alert at the time my evaluation, denies any headache, patient know that he is at [facility] no nausea no vomiting is breathing comfortably no chest pain shortness of breath or cough no diarrhea Review of Systems Positive point and negatives has been mentioned in the HPI, complete review of systems was performed and all other systems are negative Past Medical History Past Medical History: Atrial Fibrillation, Atrial Flutter, Coronary Artery Disease (CAD), Cancer, Diabetes Mellitus, Deep Vein Thrombosis (DVT), Eye Disorder, GERD/Reflux, Hyperlipidemia, Hypertension, Myocardial Infarction ([place]), Neurologic Disorder, Osteoarthritis (OA), Prostate Disorder, Renal Disease, Sleep Apnea/CPAP/BIPAP Additional Past Medical History / Comment(s): currently has Hemodialysis MWF-4 Hrs-has port left shoulder., rt breast [place]-Spring 2021,Blind in right eye. Hx encephalopathy, meningioma with left sided weakness, cannot use left leg, wheelchair bound. PT CAN'T HAVE ANY VACCINES THAT ARE LIVE VIRUSES. PLEASE USE PAPER TAPE ONLY(PT HAS THIN SKIN). uses slide board at home to transfer pt to w/c, with 2 person assist pt can stand/pivot to chair,uses cpap, uses O2 @ 2l [place] prn Last Myocardial Infarction Date:: 02-11-2005 History of Any Multi-Drug Resistant Organisms: None Reported Past Surgical History: Adenoidectomy, Breast Surgery, Cardiac Ablation, Cholecystectomy, Coronary Bypass/CABG, Heart Catheterization With Stent, Orthopedic Surgery, Tonsillectomy Additional Past Surgical History / Comment(s): Triple bypass, Meningioma Removed from Brain 04/2013, peg tube- removed 9 years ago, DESTINEY FILTER, BILATERAL CATARACTS- LENS IMPLANTS, COLONOSCOPY/POLYPECTOMY, RIGHT KNEE ARTHROSCOPY, 07/21/22 right breast mastectomy Past Anesthesia/Blood Transfusion Reactions: No Reported Reaction Date of Last Stent Placement:: 2004 Past Psychological History: Depression Smoking Status: Never smoker - Past Family History Father History Unknown: Yes Family Medical History: Congestive Heart Failure (CHF) Mother History Unknown: Yes Additional Family Medical History / Comment(s): at age 90 Medications and Allergies Home Medications Medication Instructions Recorded Confirmed Type Tamsulosin HCl [Flomax] 0.4 mg PO BID 06/19/15 01/12/23 History amLODIPine [Norvasc] 5 mg PO BID 07/09/16 01/12/23 History Pravastatin Sodium [Pravachol] 40 mg PO HS 03/21/21 01/12/23 History allopurinoL [Zyloprim] 100 mg PO DAILY 03/21/21 01/12/23 History hydrALAZINE HCL [Apresoline] 50 mg PO BID 03/21/21 01/12/23 History Amiodarone [Cordarone] 200 mg PO DAILY 02/07/22 01/12/23 History Metoprolol Succinate (ER) [Toprol 25 mg PO DAILY 02/07/22 01/12/23 History XL] Lidocaine-Prilocaine Cream [Emla 1 applic TOPICAL DAILY PRN 06/03/22 01/12/23 History Cream 2.5%/2.5%] INSULIN ASPART (NovoLOG) [NovoLOG See Protocol SQ ACHS PRN 07/31/22 01/12/23 History (formulary)] Insulin Glargine,Hum.rec.anlog 35 units SQ HS 09/17/22 01/12/23 History [Lantus Solostar Pen] Torsemide [Demadex] 20 mg PO BID 09/17/22 01/12/23 History Apixaban [Eliquis] 5 mg PO DAILY 01/04/23 01/12/23 History Exemestane [Aromasin] 25 mg PO DAILY 01/04/23 01/12/23 History Famciclovir [Famvir] 500 mg PO Q12HR #14 tablet 01/04/23 01/12/23 Rx Lactulose 10 gm PO DAILY PRN 01/04/23 01/12/23 History Potassium Chloride ER [K-Dur 20] 20 meq PO DAILY 01/04/23 01/12/23 History metOLazone [Zaroxolyn] 5 mg PO DAILY 01/04/23 01/12/23 History Allergies Allergy/AdvReac Type Severity Reaction Status Date / Time Penicillins Allergy Unknown Rash/Hives Verified 01/12/23 08:56 adhesive AdvReac skin Verified 01/12/23 08:56 tears-paper tape is better but still will tear Physical Exam Vitals: Vital Signs Temp Pulse Resp BP Pulse Ox 01/12/23 11:43 93.4 F L 67 96 01/12/23 11:00 92.5 F L 64 18 112/57 92 L 01/12/23 10:30 63 18 100/70 96 01/12/23 10:00 61 20 98/58 99 01/12/23 09:02 92.3 F L 01/12/23 09:00 90.9 F L 64 20 121/50 96 01/12/23 08:49 65 16 121/50 97 Intake and Output 01/11/23 01/12/23 01/12/23 22:59 06:59 14:59 Other: Weight 102.058 kg GENERAL DESCRIPTION: Elderly male lying in bed, no distress. No tachypnea or accessory muscle of respiration use. HEENT: Shows Pallor , no scleral icterus. Oral mucous membrane is dry. No pharyngeal erythema or thrush NECK: Trachea central, no thyromegaly. LUNGS: Unlabored breathing. Clear to auscultation anteriorly. No wheeze or crackle. HEART: S1, S2, regular rate and rhythm. No loud murmur ABDOMEN: Soft, no tenderness , guarding or rigidity, no organomegaly EXTREMITIES: No edema of feet. SKIN: No rash, no masses palpable. NEUROLOGICAL: The patient is awake, alert, oriented x3, mood and affect normal. Results CBC & Chem 7: 01/19/23 07:15 01/19/23 07:15 Labs: Abnormal Lab Results - Last 24 Hours (Table) 01/12/23 01/12/23 01/12/23 Range/Units 08:57 08:57 09:52 WBC 2.2 L (3.8-10.6) k/uL RBC 3.69 L (4.30-5.90) m/uL Hgb 11.1 L (13.0-17.5) gm/dL Hct 31.9 L (39.0-53.0) % RDW 19.8 H (11.5-15.5) % Plt Count 104 L (150-450) k/uL Lymphocytes # 0.2 L (1.0-4.8) k/uL Sodium 132 L (137-145) mmol/L Chloride 96 L (98-107) mmol/L BUN 43 H (9-20) mg/dL Creatinine 4.01 H (0.66-1.25) mg/dL Glucose 167 H (74-99) mg/dL Magnesium 2.4 H (1.6-2.3) mg/dL Total Protein 5.8 L (6.3-8.2) g/dL Urine Protein 1+ H (Negative) Urine Glucose (UA) 2+ H (Negative) Assessment and Plan (1) AMS (altered mental status) Current Visit: Yes Status: Acute Code(s): R41.82 - ALTERED MENTAL STATUS, UNSPECIFIED SNOMED Code(s): 916970127 (2) Febrile illness, acute Current Visit: No Status: Acute Code(s): R50.9 - FEVER, UNSPECIFIED SNOMED Code(s): 396174156 Plan: 1patient presented to hospital with sepsis in this patient with hypothermia hypotension did have leukopenia concern for possible SBP as no other obvious focus of infection chest x-ray is mostly pulmonary vascular congestion, clinically doubt encephalitis in this patient awake alert oriented x3 and denies any headache 2-peritoneal fluid should be sent for cell count differential and culture 3-we will continue patient on Rocephin however discontinue acyclovir We will follow on clinical condition and cultures to further adjust medication if needed Thank you for this consultation we will follow the patient along with you Time with Patient: Greater than 30
[2023-01-12] MEDS: DIALYSIS (PERIT 1.5%) 2,500 ML 37.5 G/2,500 ML BAG INTRAPERIT SCH (22:44)
--- NOTE | 2023-01-12 23:35 | EEG ---
ELECTROENCEPHALOGRAM REPORT PREAMBLE: This is a 72-year-old male with altered mental status, rule out seizure, the patient has history of meningioma. EEG FINDINGS: This is a 21-channel digital EEG recorded with video component, utilizing 10/20 international system with referential and bipolar montages. Background consists of moderately well-developed, but not very well regulated, mixed frequencies of 6 hertz theta, intermixed with some 1-2 hertz generalized delta activity in bihemispheric region. Background does not seem to be reactive to eye opening or closing. Photic driving response was not seen. There is evidence of amplitude asymmetry, with higher amplitude activity with some sharply contoured waves over the right parietal region. This may be consistent with breach rhythm from previous craniotomy defect. Different stages of sleep were not seen. No electrographic seizure was recorded. IMPRESSION: 1. This is an abnormal EEG due to background slowing of at least moderate degree, suggestive of generalized cerebral dysfunction as can be seen with toxic metabolic encephalopathy or related to diffuse structural brain abnormality. Clinical correlation is recommended. 2. Presence of amplitude asymmetry with relatively higher amplitude, sharply contoured waves over the right parietal region was seen. This activity may be related to the breach rhythm from previous craniotomy defect. Underlying epileptiform activity cannot be ruled out. Clinical correlation and a prolonged EEG recommended. MMODL / IJN: [id number] / [facility]ITALNatal[facility]
[2023-01-12] MEDS: HYDROmorphone 0.5 MG/0.5 ML SYRINGE IVP PRN (23:40)
[2023-01-13 02:05] LABS: Appearance,BF Clear
[2023-01-13] MEDS: DIALYSIS (PERIT 1.5%) 2,500 ML 37.5 G/2,500 ML BAG INTRAPERIT SCH ×4 (04:10→22:49)
[2023-01-13 06:22] LABS: Glucose,Whole Blood 205 mg/dL (70-110)
[2023-01-13] MEDS ORDERED: DEXTROSE 50% SYRINGE 50 ML IVP PRN ×2 (06:32)
[2023-01-13] MEDS: INSULIN ASPART (NovoLOG) 100 UNIT/ML VIAL SQ SCH ×4 (07:03→20:26)
[2023-01-13 07:04] LABS: Glucose,Whole Blood 193 mg/dL (70-110)
[2023-01-13] MEDS: TAMSULOSIN 0.4 MG CAP.ER.24H PO SCH ×2 (07:52→20:25)
[2023-01-13] MEDS: hydrALAZINE HCL 50 MG TAB PO SCH ×3 (07:52→20:10)
[2023-01-13] MEDS: allopurinoL 100 MG TAB PO SCH (07:53)
[2023-01-13] MEDS: amLODIPine 5 MG TAB PO SCH ×2 (07:53→20:10)
[2023-01-13] MEDS: APIXABAN 2.5 MG TABLET PO SCH ×2 (07:53→20:26)
[2023-01-13] MEDS: METOPROLOL SUCCINATE (ER) 25 MG TAB.ER.24H PO SCH (07:53)
[2023-01-13] MEDS: POTASSIUM CHLORIDE ER 20 MEQ TAB.ER PO SCH (07:53)
[2023-01-13] MEDS: AMIODARONE 200 MG TAB PO SCH (07:56)
[2023-01-13] MEDS: metOLazone 5 MG TAB PO SCH ×2 (07:56→08:30)
[2023-01-13] MEDS: TORSEMIDE 20 MG TAB PO SCH (07:57)
--- NOTE | 2023-01-13 09:33 | P.NPCON ---
History of Present Illness - Reason for Consult end stage renal disease - History of Present Illness Reason for consultation: End-stage renal disease History of present illness: Patient is a 72-year-old male seen in renal consultation for end-stage renal disease. He is maintained on peritoneal dialysis. Patient is currently not a reliable historian but family is present at bedside. Patient's states that patient was more confused and slow to respond. She denies any seizure-like activity. Patient was hypotensive when initially seen by the EMS. He is currently receiving IV fluids. Hypotension has resolved. According to the right there has been no problem with PD exchanges. Dialysate has been clear. Dialysate white cell count was 8. Denies fever or chills. No vomiting or diarrhea. Patient was noted to be hypothermic with temperature of 90.9F on admission. This morning his temperature was 98.4F. He is being followed by infectious disease and being worked up for sepsis. Currently on IV Rocephin. Vital signs are stable. General: Slow to respond. HEENT: Head exam is unremarkable. On nasal cannula. LUNGS: No audible rhonchi or wheezes. HEART: Rate and Rhythm are regular. ABDOMEN: Nontender. EXTREMITITES: No edema. Past Medical History Past Medical History: Atrial Fibrillation, Atrial Flutter, Coronary Artery Disease (CAD), Cancer, Diabetes Mellitus, Deep Vein Thrombosis (DVT), Eye Disorder, GERD/Reflux, Hyperlipidemia, Hypertension, Myocardial Infarction ([place]), Neurologic Disorder, Osteoarthritis (OA), Prostate Disorder, Renal Disease, Sleep Apnea/CPAP/BIPAP Additional Past Medical History / Comment(s): currently has Hemodialysis MWF-4 Hrs-has port left shoulder., rt breast [place]-Spring 2021,Blind in right eye. Hx encephalopathy, meningioma with left sided weakness, cannot use left leg, wheelchair bound. PT CAN'T HAVE ANY VACCINES THAT ARE LIVE VIRUSES. PLEASE USE PAPER TAPE ONLY(PT HAS THIN SKIN). uses slide board at home to transfer pt to w/c, with 2 person assist pt can stand/pivot to chair,uses cpap, uses O2 @ 2l [place] prn Last Myocardial Infarction Date:: 02-11-2005 History of Any Multi-Drug Resistant Organisms: None Reported Past Surgical History: Adenoidectomy, Breast Surgery, Cardiac Ablation, Cholecystectomy, Coronary Bypass/CABG, Heart Catheterization With Stent, Orthopedic Surgery, Tonsillectomy Additional Past Surgical History / Comment(s): Triple bypass, Meningioma Removed from Brain 04/2013, peg tube- removed 9 years ago, DESTINEY FILTER, BILATERAL CATARACTS- LENS IMPLANTS, COLONOSCOPY/POLYPECTOMY, RIGHT KNEE ARTHROSCOPY, 07/21/22 right breast mastectomy Past Anesthesia/Blood Transfusion Reactions: No Reported Reaction Date of Last Stent Placement:: 2004 Past Psychological History: Depression Smoking Status: Never smoker - Past Family History Father History Unknown: Yes Family Medical History: Congestive Heart Failure (CHF) Mother History Unknown: Yes Additional Family Medical History / Comment(s): at age 90 Medications and Allergies Home Medications Medication Instructions Recorded Confirmed Type Tamsulosin HCl [Flomax] 0.4 mg PO BID 06/19/15 01/12/23 History amLODIPine [Norvasc] 5 mg PO BID 07/09/16 01/12/23 History Pravastatin Sodium [Pravachol] 40 mg PO HS 03/21/21 01/12/23 History allopurinoL [Zyloprim] 100 mg PO DAILY 03/21/21 01/12/23 History hydrALAZINE HCL [Apresoline] 50 mg PO BID 03/21/21 01/12/23 History Amiodarone [Cordarone] 200 mg PO DAILY 02/07/22 01/12/23 History Metoprolol Succinate (ER) [Toprol 25 mg PO DAILY 02/07/22 01/12/23 History XL] Lidocaine-Prilocaine Cream [Emla 1 applic TOPICAL DAILY PRN 06/03/22 01/12/23 History Cream 2.5%/2.5%] INSULIN ASPART (NovoLOG) [NovoLOG See Protocol SQ ACHS PRN 07/31/22 01/12/23 History (formulary)] Insulin Glargine,Hum.rec.anlog 35 units SQ HS 09/17/22 01/12/23 History [Lantus Solostar Pen] Torsemide [Demadex] 20 mg PO BID 09/17/22 01/12/23 History Apixaban [Eliquis] 5 mg PO DAILY 01/04/23 01/12/23 History Exemestane [Aromasin] 25 mg PO DAILY 01/04/23 01/12/23 History Famciclovir [Famvir] 500 mg PO Q12HR #14 tablet 01/04/23 01/12/23 Rx Lactulose 10 gm PO DAILY PRN 01/04/23 01/12/23 History Potassium Chloride ER [K-Dur 20] 20 meq PO DAILY 01/04/23 01/12/23 History metOLazone [Zaroxolyn] 5 mg PO DAILY 01/04/23 01/12/23 History Allergies Allergy/AdvReac Type Severity Reaction Status Date / Time Penicillins Allergy Unknown Rash/Hives Verified 01/12/23 08:56 adhesive AdvReac skin Verified 01/12/23 08:56 tears-paper tape is better but still will tear Physical Exam Vitals: Vital Signs Temp Pulse Pulse Pulse Resp BP BP 01/13/23 09:15 01/13/23 07:50 98.4 F 81 18 122/73 01/13/23 04:00 98.2 F 74 74 16 116/64 116/64 01/13/23 00:00 97.2 F L 73 16 101/58 01/12/23 22:55 97.9 F 82 101/58 01/12/23 20:00 97.9 F 82 18 101/58 01/12/23 18:35 98.2 F 82 20 83/51 01/12/23 18:00 83 20 119/59 01/12/23 17:30 83 22 102/72 01/12/23 17:00 82 23 95/70 01/12/23 16:30 81 22 119/59 01/12/23 16:00 97.2 F L 82 20 116/59 01/12/23 15:33 97.2 F L 81 114/58 01/12/23 15:30 80 18 114/58 01/12/23 15:00 75 14 117/59 01/12/23 14:30 80 19 111/55 01/12/23 14:00 75 16 113/56 01/12/23 13:30 71 14 112/62 01/12/23 13:00 72 16 120/64 01/12/23 12:00 68 18 113/59 01/12/23 11:43 93.4 F L 67 01/12/23 11:30 65 18 107/60 01/12/23 11:00 92.5 F L 64 18 112/57 01/12/23 10:30 63 18 100/70 01/12/23 10:00 61 20 98/58 Pulse Ox 01/13/23 09:15 92 L 01/13/23 07:50 98 01/13/23 04:00 92 L 01/13/23 00:00 93 L 01/12/23 22:55 93 L 01/12/23 20:00 93 L 01/12/23 18:35 96 01/12/23 18:00 99 01/12/23 17:30 99 01/12/23 17:00 99 01/12/23 16:30 99 01/12/23 16:00 99 01/12/23 15:33 01/12/23 15:30 99 01/12/23 15:00 98 01/12/23 14:30 92 L 01/12/23 14:00 94 L 01/12/23 13:30 94 L 01/12/23 13:00 92 L 01/12/23 12:00 96 01/12/23 11:43 96 01/12/23 11:30 96 01/12/23 11:00 92 L 01/12/23 10:30 96 01/12/23 10:00 99 Intake and Output 01/12/23 01/13/23 01/13/23 22:59 06:59 14:59 Other: Voiding Method Indwelling Catheter Indwelling Catheter Results - Lab Results Most recent lab results Calcium 9.9 mg/dL (8.4-10.2) 01/12/23 08:57 Magnesium 2.4 mg/dL (1.6-2.3) H 01/12/23 08:57 01/12/23 08:57 01/12/23 08:57 Assessment and Plan Plan: Assessment: 1. End-stage renal disease maintained on peritoneal dialysis. 2. Altered mental status. Concern for infection. On antibiotics. Being followed by infectious disease and neurology. No evidence of peritonitis. EEG suggestive of toxic metabolic encephalopathy. No acute changes noted on CT. 3. Hypertension with chronic kidney disease. Stable. 4. Diabetes mellitus. 5. Volume overload. Pleural effusions noted on chest x-ray. Plan: Change PD exchanges to 2.5 L every 6 hours alternating with 2.5 and 1.5% solution. Hold antihypertensives for systolic blood pressure less than 120. Hep-Lock IV fluids. Change torsemide to 40 mg once daily. Stop Zaroxolyn. Okay to DC Gary catheter from nephrology standpoint. Check phosphorus level. Thank you for the consultation. I will continue to follow the patient with you during his hospital stay.
--- NOTE | 2023-01-13 10:09 | CT ---
EXAMINATION TYPE: CT brain wo con DATE OF EXAM: 01/13/2023 COMPARISON: 01/12/2023 HISTORY: Altered mental status CT DLP: 1202.4 mGycm Automated exposure control for dose reduction was used. FINDINGS: Moderate generalized degenerative change with low attenuation in the white matter suggestive of remot e white matter ischemia. No acute hemorrhage or mass effect. No midline shift. Intracranial vascular calcifications are noted. Orbits are symmetric. Postsurgical change involving t he calvarium again noted. Sinuses clear. IMPRESSION: 1. NO ACUTE HEMORRHAGE OR MASS EFFECT. THERE IS DEGENERATIVE AND NONSPECIFIC WHITE MATTER CHANGES MOS T TYPICAL OF REMOTE ISCHEMIA SIMILAR TO PRIOR EXAM.
[2023-01-13] MEDS: SODIUM CHLORIDE 0.9% 1,000 ML IV SCH ×2 (11:03→20:00)
[2023-01-13] MEDS: NON FORMULARY DRUG (Exemestane [Aromasin] 25 MG Tablet) PO SCH (11:03)
[2023-01-13 11:31] LABS: Glucose,Whole Blood 167 mg/dL (70-110)
[2023-01-13] MEDS ORDERED: ACYCLOVIR SODIUM 450 MG in SODIUM CHLORIDE 0.9% 100 ML IVPB SCH (12:00)
[2023-01-13 12:08] VITALS: BMI 31.4
--- NOTE | 2023-01-13 14:05 | P.PN ---
Subjective Progress Note Date: 01/13/23 HISTORY OF PRESENT ILLNESS: this is a 72-year-old male with a previous medical history significant for h ypertension and hypertensive cardiovascular disease with left ventricular hypertrophy, hyperlipidemia, diabetes mellitus type 2, with diabetic polyneuropathy, history of coronary artery disease status post coronary artery bypass graft x3 followed by stent, history of atrial fibrillation status post ablation on long-term eliquis, history of meningioma status post resection back in April 2013 with left-sided weakness, end-stage renal disease on peritoneal dialysis, history of anemia of chronic kidney disease, history of secondary hyperparathyroidism,history of breast cancer on the right side status post right mastectomy followed by chemotherapy, patient was recently evaluated at the emergency department at [facility] on 01/04/2023 after he was found to have a right-sided Arguelles's palsy associated with a recent zoster and top located, at that time the patient was found to be somewhat hyponatremic, he was started on Famvir 500 mg orally twice every day for 7 days, and he was sent to my office I saw the patient in the office last Thursday and he was doing fine, I added a small dose of dexamethasone 0.75 mg orally twice every day for 5 days, patient was doing fine up until today in the morning when his was checking on him to do his peritoneal dialysis and he was barely responsive, therefore she contacted the EMS and was brought into the ER for evaluation patient was having a minimal leukocytosis, and he was also found to have hypothermia, he had a warming blanket, and the because of the prior presentation to rule out any varicella-zoster encephalitis he was started immediately on Acyclovir IV piggyback and infectious disease consultation was obtained along with nephrology consultation for peritoneal dialysis 01/13: Patient has been seen by infectious disease concerning for possible spontaneous bacterial peritonitis as no other source of infection was noted. Doubt encephalitis. Patient is continued on Rocephin and acyclovir was discontinued but because patient's mental sstatus has worsened, Dr. Ruiz is planning to restart antiviral. Peritoneal fluid culture is in progress. Blood culture is status post received. Patient has been seen and followed by mihai wagner for toxic metabolic encephalopathy. The patient had a repeat CAT scan of the brain which revealed no acute hemorrhage or mass effect. There is degenerative and nonspecific white matter changes most typical of remote ischemia. Carotid ultrasound revealed 50-69% stenosis of the right carotid bifurcation. Less than 50% stenosis of the left carotid bifurcation. EEG was abnormal Be seen with toxic metabolic encephalopathy or related to diffuse structural brain abnormality. Rare sharply controlled waves over the right parietal region did not clearly appear epileptiform but may suggest underlying cortical irritability. Clinical correlation with prolonged EEG recommended which is being done today. MRI of the brain has also been ordered by neurology. Patient has also been seen by nephrology for end-stage renal disease. Patient is continued on PD exchanges although solutions have been modified. Nephrology is changed furosemide to 40 mg once daily and discontinued Zaroxolyn. Telemetry is sinus rhythm with first-degree block. Temperature is up to 97.5. Heart rate is in the 70s and blood pressure 102/62, pulse ox 95% on room air. Patient has used CPAP during the night. Repeat blood work has been ordered for tomorrow. REVIEW OF SYSTEMS: Constitutional: No documented fever, no chills, no night sweats. No weight change. positive for weakness, fatigue or lethargy. No daytime sleepiness. HEENT: No headache. right eye blind or double vision, no loss of vision. No lo ss of Hearing, no ringing in the ears, no dizziness. No nasal drainage or congestion. No epistaxis. No sore throat. Lungs: positive for shortness of breath, no cough, no sputum production. No wheezing. Reports dyspnea with activity. Cardiovascular: No chest pain, reported lower extremity edema. No palpitations. Reported paroxysmal nocturnal dyspnea. Reports orthopnea. No lightheadedness or dizziness. No syncopal episodes. Abdominal: Reports no abdominal pain. positive for nausea, vomiting. Reports occasional diarrhea. No constipation. No bloody or tarry stools reports loss of appetite. Genitourinary: No dysuria, increased frequency, urgency. No urinary retention. Musculoskeletal: No myalgias. positive for chronic left sided weakness, positive for gait dysfunction, no frequent falls. positive for back pain. positive for neck pain. Integumentary: right mastectomy incision is clean with LIUSITO in place no lesions. No rash or pruritus. No unusual bruising. No change in hair or nails. Neurologic: No aphasia. No facial droop. No change in mentation. No head injury. No headache, positive for left sided weakness and left foot drop. Psychiatric: positive for depression. No anxiety. No mood swings. Endocrine: No abnormal blood sugars. No weight change. PHYSICAL EXAMINATION: General: this is a 72-year-old male who is lying down in bed in bed appears to be in no respiratory distress at rest. HEENT: Head is atraumatic, normocephalic, pupils were equal round reactive to light and recommendation, extraocular muscle movement were intact, sclera nonicteric, conjunctivae were pale, mucous membranes of the mouth are somewhat dry. Neck: Supple, no JVP, normal carotid upstroke bilaterally, no lymphadenopathy. Chest: Decreased breath sounds at the bases few rhonchi, no expiratory wheezes, no chest wall tenderness, no intercostal retractions. Heart: First heart sound is normal, second heart sounds normal, irregularly irregular, there is systolic ejection murmur 2/6 located in the left sternal border. Abdomen: Soft, nontender, nondistended, positive bowel sounds, positive for PD catheter Extremities: There is +2 edema to the bilateral lower extremities left greater than right no calf tenderness DP +2 bilaterally. Neurologic examination: Patient is awake alert and oriented X3 , cranial nerves II-12 appear grossly intact, there is left-sided weakness with left foot drop. ASSESSMENT AND PLAN: 1. Metabolic encephalopathy multifactorial rule out varicella-zoster encephalitis or HSV encephalitis continue the patient on Acyclovir 500 mg IV piggyback every 24 hours, infectious disease consultation appreciated, blood cultures, urine culture, follow-up with the patient. 2. 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 Continue treatment with acyclovir for now 3. Right-sided pleural effusion with compressive atelectasis rule out pneumonia. Continue ceftriaxone 2 g IV piggyback every 24 hours. 4. leukocytosis likely related to recent dexamethasone use. Rule out sepsis. 6. History of CAD post CABG as well as PCI and stent placement. Continue patient on metoprolol XL 25 mg once every day, pravastatin 40 mg at bedtime. 7. History of paroxysmal atrial fibrillation. Continue patient on Eliquis 5 mg orally twice every day, continue amiodarone 100 mg orally once every day, metoprolol XL 25 mg orally once every day. 8. Hypertension and hypertensive cardiovascular disease. Continue patient on amlodipine 5 mg once every day, continue with metoprolol ER 25 mg orally once every day, monitor the patient blood pressure very closely. 9. Hyperlipidemia. Continue patient on pravastatin 40 mg at bedtime, monitor lipid panel, keep LDL 55-70. 10. Chronic kidney disease stage IV, approaching ESRD, we will arrange for Perma catheter placement and HD to be started 11. History of enlarged prostate. Continue Flomax 0.4 mg once every day, monitor for urinary retention. 12. Diabetes mellitus type 2. Continue Lantus 30 units at bedtime, monitor the patient blood glucose level and at bedtime with NovoLog scale 13. Diabetic polyneuropathy. Stable. 14. History of DVT status post IVC filter placement, continue with Eliquis 5 mg orally twice every day. 15. Chronic gout. Continue patient on allopurinol 100 mg orally once every day. 16. History of meningioma with left-sided weakness. Physical therapy evaluation. Patient is a full code. Impression and plan of care have been directed as dictated by the signing physician. Nita Linn nurse practitioner acting as scribe for signing physician. Objective - Vital Signs Vital signs: Vital Signs Temp 97.5 F L 01/13/23 11:04 Pulse 73 01/13/23 11:04 Resp 18 01/13/23 11:04 BP 102/62 01/13/23 11:04 Pulse Ox 95 01/13/23 11:04 FiO2 Intake & Output 01/12/23 01/13/23 01/13/23 18:59 06:59 18:59 Weight 102.058 kg Other: Voiding Method Indwelling Catheter Indwelling Catheter - Labs CBC & Chem 7: 01/14/23 08:56 01/14/23 08:56 Labs: Abnormal Lab Results - Last 24 Hours (Table) 01/12/23 01/13/23 01/13/23 Range/Units 21:02 06:12 06:59 POC Glucose (mg/dL) 185 H 205 H 193 H (70-110) mg/dL Phosphorus (2.5-4.5) mg/dL 01/13/23 Range/Units 10:12 POC Glucose (mg/dL) (70-110) mg/dL Phosphorus 6.0 H (2.5-4.5) mg/dL Microbiology - Last 24 Hours (Table) 01/12/23 15:55 Body Fluid Culture - Preliminary Peritoneal Fluid
--- NOTE | 2023-01-13 14:43 | P.PN ---
Subjective Progress Note Date: 01/13/23 First follow-up: Patient is laying in the bed, family members including patient's , and children were present. The family believes patient is getting worse as compared to yesterday. He is only giving one-word answer, yes or no with long delays. He only knows his name. He denies headache. He continues to have significant myoclonic jerks. Patient's son mentioned that at that time he was diagnosed with brain tumor, underwent resection, he also suffered from encephalitis. Patient at present is behaving exactly like how he was with encephalitis. Patient was on acyclovir, but it was discontinued by infectious disease last night. Telemetry monitoring showing sinus rhythm in the 70s, with some PVCs. Objective - Vital Signs Vital signs: Vital Signs Temp 97.5 F L 01/13/23 11:04 Pulse 73 01/13/23 11:04 Resp 18 01/13/23 11:04 BP 102/62 01/13/23 11:04 Pulse Ox 95 01/13/23 11:04 FiO2 Intake & Output 01/12/23 01/13/23 01/13/23 18:59 06:59 18:59 Weight 102.058 kg 102.058 kg Other: Voiding Method Indwelling Catheter Indwelling Catheter - Exam Patient is laying in the bed, appears encephalopathic. He has oxygen running. Patient denies headache. On examination patient able to tell me his name, and that he was born in 1950, and name of his . He could not tell the current month or the year. Patient has right facial weakness, peripheral type. Right pupil has corneal density and has no vision right eye. Patient has full visual miller with the left eye. Patient has left sided drift. Patient has significant myoclonic jerks of outstretched hands, left much more than right. His apparel designer is slightly decreased on the left as compared to the right. Patient able to dorsiflex with some strength, and able to lift his right leg off the bed with some resistance. Left leg is very weak which is baseline. No obvious seizure-like activity noted. - Labs CBC & Chem 7: 01/12/23 08:57 01/12/23 08:57 Labs: Abnormal Lab Results - Last 24 Hours (Table) 01/12/23 01/13/23 01/13/23 Range/Units 21:02 06:12 06:59 POC Glucose (mg/dL) 185 H 205 H 193 H (70-110) mg/dL Phosphorus (2.5-4.5) mg/dL 01/13/23 01/13/23 Range/Units 10:12 11:28 POC Glucose (mg/dL) 167 H (70-110) mg/dL Phosphorus 6.0 H (2.5-4.5) mg/dL Microbiology - Last 24 Hours (Table) 01/12/23 15:55 Body Fluid Culture - Preliminary Peritoneal Fluid Assessment and Plan Assessment: * Altered mental status, likely due to toxic metabolic encephalopathy * Acute hypothermia, hypotension, possible sepsis. Hypothermia resolved. Blood cultures, and peritonial fluid cultures negative. Family concerned about encephalitis. * Abnormal EEG * Mild pancytopenia, unclear cause * End-stage renal disease on peritoneal dialysis * History of Atrial fibrillation, on Eliquis * Recent history of shingles with reported right Arguelles's palsy 01/04/2023. * History of cerebral meningioma probably involving right parietal falx region, as per CT findings, status post resection 10 years ago, with residual left leg weakness. Family believed patient had encephalitis at the time he was diagnosed with brain tumor. * Hypertension * Diabetes * Coronary artery disease * Hyperlipidemia * Right eye blindness, chronic * Obesity Plan: * EEG was abnormal due to background slowing of moderate degree consistent with toxic metabolic encephalopathy. Some sharply contoured waves were seen in the right parietal lesion, which did not appear clearly epileptiform. Suggest prolonged, sleep deprived EEG. Patient's family believes that patient is getting worse. On my examination, there is not much change as compared to yesterday. We will perform prolonged EEG to rule out any epileptiform activity. * MRI of the brain rule out CVA, rule out encephalitis. Patient does have history of Dru filter. Needs clearance. * Patient's family is very concerned that patient has encephalitis. Acyclovir was discontinued by ID. I discussed with ID, and patient will be resumed on acyclovir. LP should be done, but patient is on Eliquis, which may have to be discontinued. If ID recommends LP, then patient may be bridged with Lovenox to have LP completed. * Carotid Doppler revealed 50-69% stenosis of right carotid bifurcation. There is < 50% stenosis left carotid. Continue Eliquis for now. * Patient currently on ceftriaxone 2 g every 24 hours, ID on board. We will resume acyclovir, as adjusted to renal dosing. * Continue Eliquis 5 mg daily for previous history of atrial fibrillation. * Discussed in detail with patient's family, and ID.
[2023-01-13 16:36] LABS: Glucose,Whole Blood 192 mg/dL (70-110)
--- NOTE | 2023-01-13 16:52 | P.PN ---
Subjective Progress Note Date: 01/13/23 Principal diagnosis: Encephalitis Patient is a 72-year-old male with a past medical history significant for end-stage renal disease on peritoneal dialysis, also history of brain tumor resection followed by an episode of encephalitis about 10 years ago history provided by the son and did have a history of shingles, admitted to the hospital with mental status status changes and the patient was noticed to be hypothermic with initial concern for possible SBP On today's evaluation and that is 01/13/2023, the patient temperature has normalized, patient apparently did have worsening of his mentation, per the and son at the bedside, history of any nausea vomiting or diarrhea has been reported Objective - Vital Signs Vital signs: Vital Signs Temp 97.5 F L 01/13/23 11:04 Pulse 73 01/13/23 11:04 Resp 18 01/13/23 11:04 BP 102/62 01/13/23 11:04 Pulse Ox 95 01/13/23 11:04 FiO2 Intake & Output 01/12/23 01/13/23 01/13/23 18:59 06:59 18:59 Weight 102.058 kg Other: Voiding Method Indwelling Catheter Indwelling Catheter - Exam GENERAL DESCRIPTION: An elderly male lying in bed in no distress RESPIRATORY SYSTEM: Unlabored breathing , decreased breath sounds at bases HEART: S1 S2 regular rate and rhythm , ABDOMEN: Soft , no tenderness EXTREMITIES: No edema feet - Labs CBC & Chem 7: 01/19/23 07:15 01/19/23 07:15 Labs: Abnormal Lab Results - Last 24 Hours (Table) 01/12/23 01/13/23 01/13/23 Range/Units 21:02 06:12 06:59 POC Glucose (mg/dL) 185 H 205 H 193 H (70-110) mg/dL Phosphorus (2.5-4.5) mg/dL 01/13/23 01/13/23 Range/Units 10:12 11:28 POC Glucose (mg/dL) 167 H (70-110) mg/dL Phosphorus 6.0 H (2.5-4.5) mg/dL Microbiology - Last 24 Hours (Table) 01/12/23 15:55 Body Fluid Culture - Preliminary Peritoneal Fluid Assessment and Plan (1) Encephalopathy acute Current Visit: Yes Status: Acute Code(s): G93.40 - ENCEPHALOPATHY, UNSPECIFIED SNOMED Code(s): 31250616 (2) AMS (altered mental status) Current Visit: Yes Status: Acute Code(s): R41.82 - ALTERED MENTAL STATUS, UNSPECIFIED SNOMED Code(s): 533425727 Plan: 1patient presented to hospital with sepsis in this patient with hypothermia hypotension did have leukopenia concern for possible SBP as no other obvious focus of infection chest x-ray is mostly pulmonary vascular congestion, clinically doubt encephalitis initially as the patient was awake alert oriented 3 yesterday and denied any headache, the patient peritoneal fluid came back negative and now with worsening of his mentation and a previous history of encephalitis ideally would have also for LP however the patient is on Eliquis, and high risk of bleeding, patient did receive a dose of acyclovir yesterday which should have been enough for him because of his kidney function and the patient has not missed any doses, we will restart acyclovir at 500 mg daily the dose confirmed with the pharmacist and see clinical response Multiple family members the bedside questions were answered Time with Patient: Less than 30
[2023-01-13] MEDS: ACYCLOVIR SODIUM 500 MG in SODIUM CHLORIDE 0.9% 100 ML IVPB SCH (17:18)
[2023-01-13 19:56] LABS: Glucose,Whole Blood 192 mg/dL (70-110)
[2023-01-13] MEDS: PRAVASTATIN SODIUM 40 MG TAB PO SCH (20:25)
[2023-01-13] MEDS: INSULIN DETEMIR (LEVEMIR) 100 UNIT/ML SYR SQ SCH (20:26)
--- NOTE | 2023-01-13 20:28 | P.HPIM ---
History of Present Illness H&P Date: 01/12/23 HISTORY OF PRESENT ILLNESS: this is a 72-year-old male with a previous medical history significant for hypertension and hypertensive cardiovascular disease with left ventricular hypertrophy, hyperlipidemia, diabetes mellitus type 2, with diabetic polyneuropathy, history of coronary artery disease status post coronary artery bypass graft x3 followed by stent, history of atrial fibrillation status post ablation on long-term eliquis, history of meningioma status post resection back in April 2013 with left-sided weakness, end-stage renal disease on peritoneal dialysis, history of anemia of chronic kidney disease, history of secondary hyperparathyroidism,history of breast cancer on the right side status post right mastectomy followed by chemotherapy, patient was recently evaluated at the emergency department at [facility] on 01/04/2023 after he was found to have a right-sided Arguelles's palsy associated with a recent zoster and top located, at that time the patient was found to be somewhat hyponatremic, he was started on Famvir 500 mg orally twice every day for 7 days, and he was sent to my office I saw the patient in the office last Thursday and he was doing fine, I added a small dose of dexamethasone 0.75 mg orally twice every day for 5 days, patient was doing fine up until today in the morning when his was checking on him to do his peritoneal dialysis and he was barely responsive, therefore she contacted the EMS and was brought into the ER for evaluation patient was having a minimal leukocytosis, and he was also found to have hypothermia, he had a warming blanket, and the because of the prior presentation to rule out any varicella-zoster encephalitis he was started immediately on Acyclovir IV piggyback and infectious disease consultation was obtained along with nephrology consultation for peritoneal dialysis .REVIEW OF SYSTEMS: Constitutional: No documented fever, no chills, no night sweats. No weight change. positive for weakness, fatigue or lethargy. No daytime sleepiness. HEENT: No headache. right eye blind or double vision, no loss of vision. No loss of Hearing, no ringing in the ears, no dizziness. No nasal drainage or congestion. No epistaxis. No sore throat. Lungs: positive for shortness of breath, no cough, no sputum production. No wheezing. Reports dyspnea with activity. Cardiovascular: No chest pain, reported lower extremity edema. No palpitations. Reported paroxysmal nocturnal dyspnea. Reports orthopnea. No lightheadedness or dizziness. No syncopal episodes. Abdominal: Reports no abdominal pain. positive for nausea, vomiting. Reports occasional diarrhea. No constipation. No bloody or tarry stools reports loss of appetite. Genitourinary: No dysuria, increased frequency, urgency. No urinary retention. Musculoskeletal: No myalgias. positive for chronic left sided weakness, positive for gait dysfunction, no frequent falls. positive for back pain. positive for neck pain. Integumentary: right mastectomy incision is clean with LUISITO in place no lesions. No rash or pruritus. No unusual bruising. No change in hair or nails. Neurologic: No aphasia. No facial droop. No change in mentation. No head injury. No headache, positive for left sided weakness and left foot drop. Psychiatric: positive for depression. No anxiety. No mood swings. Endocrine: No abnormal blood sugars. No weight change. PAST MEDICAL HISTORY: Coronary artery disease status post coronary artery bypass graft 3 with PCI. Hypertension and hypertensive cardio vascular disease. Hyperlipidemia. Diabetes mellitus type 2. History of meningioma status post resection April 2013 with resultant left- sided weakness. Paroxysmal Atrial fibrillation. Diabetic polyneuropathy. Enlarged prostate. GERD. DVT. Osteoarthritis. Chronic kidney disease stage IV. Anemia of chronic kidney disease. Secondary hyperparathyroidism. Ductal carcinoma right breast PAST SURGICAL HISTORY: CABG 3. Left heart catheterization with PCI. Bilateral cataract surgery with implants. Right arthroscopic knee surgery. Meningioma resection with resultant left-sided weakness. Tonsillectomy and adenoidectomy. Cholecystectomy. EGD and colonoscopy. Cardiac ablation. IVC Sulphur filter placement. [id number] SOCIAL HISTORY: Patient is a lifelong nonsmoker he denies any history of drinking he denies any history of drug use or abuse he currently lives with his , he uses a sliding board, he uses a wheelchair and a scooter to ambulate around. FAMILY HISTORY: Mother at age of 92 from natural causes, father at age of 83 from congestive heart failure, patient has one adopted brother, 2 sisters who are okay, patient has one son with no major medical problems and one daughter with hypothyroidism. PHYSICAL EXAMINATION: General: this is a 72-year-old male who is lying down in bed in bed appears to be in no respiratory distress at rest. HEENT: Head is atraumatic, normocephalic, pupils were equal round reactive to light and recommendation, extraocular muscle movement were intact, sclera nonicteric, conjunctivae were pale, mucous membranes of the mouth are somewhat dry. Neck: Supple, no JVP, normal carotid upstroke bilaterally, no lymphadenopathy. Chest: Decreased breath sounds at the bases few rhonchi, no expiratory wheezes, no chest wall tenderness, no intercostal retractions. Heart: First heart sound is normal, second heart sounds normal, irregularly irregular, there is systolic ejection murmur 2/6 located in the left sternal border. Abdomen: Soft, nontender, nondistended, positive bowel sounds, positive for PD catheter Extremities: There is +2 edema to the bilateral lower extremities left greater than right no calf tenderness DP +2 bilaterally. Neurologic examination: Patient is awake alert and oriented X3 , cranial nerves II-12 appear grossly intact, there is left-sided weakness with left foot drop. ASSESSMENT AND PLAN: 1. Metabolic encephalopathy multifactorial rule out varicella-zoster encephalitis or HSV encephalitis We will start the patient on Acyclovir 500 mg IV piggyback every 24 hours, infectious disease consultation, blood cultures, urine culture, follow-up with the patient. 2. 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 Continue treatment with acyclovir for now 3. Right-sided pleural effusion with compressive atelectasis rule out pneumoni a. Continue ceftriaxone 2 g IV piggyback every 24 hours. 4. leukocytosis likely related to recent dexamethasone use. Rule out sepsis. 6. History of CAD post CABG as well as PCI and stent placement. Continue patient on metoprolol XL 25 mg once every day, pravastatin 40 mg at bedtime. 7. History of paroxysmal atrial fibrillation. Continue patient on Eliquis 5 mg orally twice every day, continue amiodarone 100 mg orally once every day, metoprolol XL 25 mg orally once every day. 8. Hypertension and hypertensive cardiovascular disease. Continue patient on amlodipine 5 mg once every day, continue with metoprolol ER 25 mg orally once every day, monitor the patient blood pressure very closely. 9. Hyperlipidemia. Continue patient on pravastatin 40 mg at bedtime, monitor lipid panel, keep LDL 55-70. 10. Chronic kidney disease stage IV, approaching ESRD, we will arrange for Per ma catheter placement and HD to be started 11. History of enlarged prostate. Continue Flomax 0.4 mg once every day, monitor for urinary retention. 12. Diabetes mellitus type 2. Continue Lantus 30 units at bedtime, monitor the patient blood glucose level and at bedtime with NovoLog scale 13. Diabetic polyneuropathy. Stable. 14. History of DVT status post IVC filter placement, continue with Eliquis 5 mg orally twice every day. 15. Chronic gout. Continue patient on allopurinol 100 mg orally once every day. 16. History of meningioma with left-sided weakness. Physical therapy eval uation. Admit to inpatient. Estimate a length of stay 2 midnights. Patient is a full code. Past Medical History Past Medical History: Atrial Fibrillation, Atrial Flutter, Coronary Artery Disease (CAD), Cancer, Diabetes Mellitus, Deep Vein Thrombosis (DVT), Eye Disorder, GERD/Reflux, Hyperlipidemia, Hypertension, Myocardial Infarction ([place]), Neurologic Disorder, Osteoarthritis (OA), Prostate Disorder, Renal Disease, Sleep Apnea/CPAP/BIPAP Additional Past Medical History / Comment(s): currently has Hemodialysis MWF-4 Hrs-has port left shoulder., rt breast CA-Spring 2021,Blind in right eye. Hx encephalopathy, meningioma with left sided weakness, cannot use left leg, wheelchair bound. PT CAN'T HAVE ANY VACCINES THAT ARE LIVE VIRUSES. PLEASE USE PAPER TAPE ONLY(PT HAS THIN SKIN). uses slide board at home to transfer pt to w/c, with 2 person assist pt can stand/pivot to chair,uses cpap, uses O2 @ 2l NC prn Last Myocardial Infarction Date:: 02-11-2005 History of Any Multi-Drug Resistant Organisms: None Reported Past Surgical History: Adenoidectomy, Breast Surgery, Cardiac Ablation, Cholecystectomy, Coronary Bypass/CABG, Heart Catheterization With Stent, Orthopedic Surgery, Tonsillectomy Additional Past Surgical History / Comment(s): Triple bypass, Meningioma Removed from Brain 04/2013, peg tube- removed 9 years ago, DESTINEY FILTER, BILATERAL CATARACTS- LENS IMPLANTS, COLONOSCOPY/POLYPECTOMY, RIGHT KNEE ARTHROSCOPY, 07/21/22 right breast mastectomy Past Anesthesia/Blood Transfusion Reactions: No Reported Reaction Date of Last Stent Placement:: 2004 Past Psychological History: Depression Smoking Status: Never smoker - Past Family History Father History Unknown: Yes Family Medical History: Congestive Heart Failure (CHF) Mother History Unknown: Yes Additional Family Medical History / Comment(s): at age 90 Medications and Allergies Home Medications Medication Instructions Recorded Confirmed Type Tamsulosin HCl [Flomax] 0.4 mg PO BID 06/19/15 01/12/23 History amLODIPine [Norvasc] 5 mg PO BID 07/09/16 01/12/23 History Pravastatin Sodium [Pravachol] 40 mg PO HS 03/21/21 01/12/23 History allopurinoL [Zyloprim] 100 mg PO DAILY 03/21/21 01/12/23 History hydrALAZINE HCL [Apresoline] 50 mg PO BID 03/21/21 01/12/23 History Amiodarone [Cordarone] 200 mg PO DAILY 02/07/22 01/12/23 History Metoprolol Succinate (ER) [Toprol 25 mg PO DAILY 02/07/22 01/12/23 History XL] Lidocaine-Prilocaine Cream [Emla 1 applic TOPICAL DAILY PRN 06/03/22 01/12/23 History Cream 2.5%/2.5%] INSULIN ASPART (NovoLOG) [NovoLOG See Protocol SQ ACHS PRN 07/31/22 01/12/23 History (formulary)] Insulin Glargine,Hum.rec.anlog 35 units SQ HS 09/17/22 01/12/23 History [Lantus Solostar Pen] Torsemide [Demadex] 20 mg PO BID 09/17/22 01/12/23 History Apixaban [Eliquis] 5 mg PO DAILY 01/04/23 01/12/23 History Exemestane [Aromasin] 25 mg PO DAILY 01/04/23 01/12/23 History Famciclovir [Famvir] 500 mg PO Q12HR #14 tablet 01/04/23 01/12/23 Rx Lactulose 10 gm PO DAILY PRN 01/04/23 01/12/23 History Potassium Chloride ER [K-Dur 20] 20 meq PO DAILY 01/04/23 01/12/23 History metOLazone [Zaroxolyn] 5 mg PO DAILY 01/04/23 01/12/23 History Allergies Allergy/AdvReac Type Severity Reaction Status Date / Time Penicillins Allergy Unknown Rash/Hives Verified 01/12/23 08:56 adhesive AdvReac skin Verified 01/12/23 08:56 tears-paper tape is better but still will tear Physical Exam Vitals: Vital Signs Temp Pulse Resp BP Pulse Ox 01/12/23 11:43 93.4 F L 67 96 01/12/23 11:00 92.5 F L 64 18 112/57 92 L 01/12/23 10:30 63 18 100/70 96 01/12/23 10:00 61 20 98/58 99 01/12/23 09:02 92.3 F L 01/12/23 09:00 90.9 F L 64 20 121/50 96 01/12/23 08:49 65 16 121/50 97 Intake and Output 01/11/23 01/12/23 01/12/23 22:59 06:59 14:59 Other: Weight 102.058 kg Results CBC & Chem 7: 01/12/23 08:57 01/12/23 08:57 Labs: Abnormal Lab Results - Last 24 Hours (Table) 01/12/23 01/12/23 01/12/23 Range/Units 08:57 08:57 09:52 WBC 2.2 L (3.8-10.6) k/uL RBC 3.69 L (4.30-5.90) m/uL Hgb 11.1 L (13.0-17.5) gm/dL Hct 31.9 L (39.0-53.0) % RDW 19.8 H (11.5-15.5) % Plt Count 104 L (150-450) k/uL Lymphocytes # 0.2 L (1.0-4.8) k/uL Sodium 132 L (137-145) mmol/L Chloride 96 L (98-107) mmol/L BUN 43 H (9-20) mg/dL Creatinine 4.01 H (0.66-1.25) mg/dL Glucose 167 H (74-99) mg/dL Magnesium 2.4 H (1.6-2.3) mg/dL Total Protein 5.8 L (6.3-8.2) g/dL Urine Protein 1+ H (Negative) Urine Glucose (UA) 2+ H (Negative)
[2023-01-13] MEDS: HYDROmorphone 0.5 MG/0.5 ML SYRINGE IVP PRN (21:58)
--- NOTE | 2023-01-13 22:56 | EEG ---
ELECTROENCEPHALOGRAM REPORT ELECTROENCEPHALOGRAM (EEG) REPORT: Please note this is a revised/addended report. TECHNIQUE: This is a report from a prolonged 2.5-hour inpatient digital EEG performed using the 10/20 international electrode placement system. HISTORY: Encephalopathy, leukopenia, hypothermia. Additional history includes a meningioma resection over the right parietal region. Additional history includes diabetes, coronary artery disease, hypertension. CURRENT MEDICATIONS: 1. Tylenol. 2. Zyloprim. 3. Cordarone. 4. Norvasc. 5. Eliquis. 6. Alprazolam. 7. Dilaudid. 8. Insulin. 9. Pravachol, and others. FINDINGS: Recording start time: 01/13/2023 at 1304. Recording end time: 01/13/2023 at 1540. EVENTS: During this 2.5-hour video EEG recording, no clinical or electrographic seizures were recorded. BACKGROUND: Background frequencies were seen in the unsustained 4 to 5 hertz range. ACTIVATION: Hyperventilation: Not performed. Photic stimulation: No driving seen. Sleep: Drowsy. ABNORMALITIES: 1. Diffuse 3 to 5 hertz slow wave activity was seen at times with greater focality over the right parietal region. 2. Occasional triphasic waves were seen. 3. Waveforms over the right parietal region were of higher amplitude, also some sharp morphology waveforms were seen over this region. However, these were not definitively epileptiform in their morphology there. IMPRESSION: Abnormal 2.5-hour video EEG. No seizures were recorded. No definitive epileptiform activity was present. This EEG consisted of triphasic waves, which are not epileptiform in nature. Triphasic waves can be seen in the setting of a metabolic encephalopathy. Also diffuse theta delta range slowing was seen with greater focality in the right parietal region. These findings are not epileptiform in nature. CONCLUSION: These findings indicate moderate diffuse cerebral dysfunction with greater focal involvement of the right parietal region. An epileptiform focus involving the right parietal region cannot necessarily be excluded. Clinical correlation is recommended. These findings were called in the addended format with additional history to the consulting neurologist at 5:45 p.m. on 01/13/2023. MMODL / IJN: [id number] /
[2023-01-14] MEDS: DIALYSIS (PERIT 1.5%) 2,500 ML 37.5 G/2,500 ML BAG INTRAPERIT SCH ×4 (04:47→22:29)
[2023-01-14 05:58] LABS: Glucose,Whole Blood 165 mg/dL (70-110)
[2023-01-14] MEDS: INSULIN ASPART (NovoLOG) 100 UNIT/ML VIAL SQ SCH ×4 (06:18→23:23)
[2023-01-14] MEDS: hydrALAZINE HCL 50 MG TAB PO SCH ×2 (09:12→23:17)
[2023-01-14] MEDS: TAMSULOSIN 0.4 MG CAP.ER.24H PO SCH ×2 (09:12→23:18)
[2023-01-14] MEDS: amLODIPine 5 MG TAB PO SCH ×2 (09:13→23:17)
[2023-01-14] MEDS: AMIODARONE 200 MG TAB PO SCH (09:13)
[2023-01-14] MEDS: allopurinoL 100 MG TAB PO SCH (09:13)
[2023-01-14] MEDS: METOPROLOL SUCCINATE (ER) 25 MG TAB.ER.24H PO SCH (09:13)
[2023-01-14] MEDS: APIXABAN 2.5 MG TABLET PO SCH ×2 (09:14→23:17)
[2023-01-14] MEDS: ACETAMINOPHEN TAB 325 MG TAB PO PRN (09:14)
[2023-01-14] MEDS: TORSEMIDE 20 MG TAB PO SCH (09:14)
[2023-01-14 09:35] LABS: Anisocytosis Moderate; Basophils % (A) 0 %; Eosinophils % (A) 1 %; HGB 10.7 gm/dL (13.0-17.5); Lymphocytes # (A) 0.3 k/uL (1.0-4.8); Lymphocytes % (A) 8 %; MCH 30.3 pg (25.0-35.0); MCHC 34.4 g/dL (31.0-37.0); Mean Platelet Volume 8.5; Monocytes # (A) 0.3 k/uL (0-1.0); Monocytes % (A) 7 %; Neutrophils # (A) 3.2 k/uL (1.3-7.7); Neutrophils % (A) 82 %; RBC 3.52 m/uL (4.30-5.90); RDW 20.1 % (11.5-15.5)
[2023-01-14 09:40] LABS: Albumin 3.5 g/dL (3.5-5.0); Calcium 9.5 mg/dL (8.4-10.2); Magnesium 2.2 mg/dL (1.6-2.3); Potassium 3.4 mmol/L (3.5-5.1); Total Bilirubin 0.3 mg/dL (0.2-1.3); Total Protein 5.8 g/dL (6.3-8.2)
[2023-01-14] MEDS ORDERED: POTASSIUM CHLORIDE ER 20 MEQ TAB.ER PO STA (10:34)
--- NOTE | 2023-01-14 10:34 | P.PN ---
Subjective Patient is seen in follow-up for end-stage renal disease. He is maintained on peritoneal dialysis. No problems with PD changes per nurse. Blood pressure stable. A little more awake today. Family present at bedside. Vital signs are stable. General: Awake. No acute distress. HEENT: Head exam is unremarkable. LUNGS: No audible rhonchi or wheezes. HEART: Rate and Rhythm are regular. ABDOMEN: Nontender. EXTREMITITES: No edema. Objective - Vital Signs Vital signs: Vital Signs Temp 97.4 F L 01/14/23 10:00 Pulse 69 01/14/23 10:00 Resp 16 01/14/23 10:00 BP 130/67 01/14/23 10:00 Pulse Ox 96 01/14/23 10:00 FiO2 Intake & Output 01/13/23 01/14/23 01/14/23 18:59 06:59 18:59 Output Total 225 125 Balance -225 -125 Weight 102.058 kg Output: Urine 225 125 Other: Voiding Method Indwelling Catheter Indwelling Catheter CAPD - Labs CBC & Chem 7: 01/14/23 08:56 01/14/23 08:56 Labs: Abnormal Lab Results - Last 24 Hours (Table) 01/13/23 01/13/23 01/13/23 Range/Units 10:12 11:28 16:34 RBC (4.30-5.90) m/uL Hgb (13.0-17.5) gm/dL Hct (39.0-53.0) % RDW (11.5-15.5) % Sodium (137-145) mmol/L Potassium (3.5-5.1) mmol/L Chloride (98-107) mmol/L BUN (9-20) mg/dL Creatinine (0.66-1.25) mg/dL Glucose (74-99) mg/dL POC Glucose (mg/dL) 167 H 192 H (70-110) mg/dL Phosphorus 6.0 H (2.5-4.5) mg/dL Total Protein (6.3-8.2) g/dL 01/13/23 01/14/23 01/14/23 Range/Units 19:54 05:56 08:56 RBC 3.52 L (4.30-5.90) m/uL Hgb 10.7 L (13.0-17.5) gm/dL Hct 31.0 L (39.0-53.0) % RDW 20.1 H (11.5-15.5) % Sodium (137-145) mmol/L Potassium (3.5-5.1) mmol/L Chloride (98-107) mmol/L BUN (9-20) mg/dL Creatinine (0.66-1.25) mg/dL Glucose (74-99) mg/dL POC Glucose (mg/dL) 192 H 165 H (70-110) mg/dL Phosphorus (2.5-4.5) mg/dL Total Protein (6.3-8.2) g/dL 01/14/23 Range/Units 08:56 RBC (4.30-5.90) m/uL Hgb (13.0-17.5) gm/dL Hct (39.0-53.0) % RDW (11.5-15.5) % Sodium 132 L (137-145) mmol/L Potassium 3.4 L (3.5-5.1) mmol/L Chloride 95 L (98-107) mmol/L BUN 43 H (9-20) mg/dL Creatinine 4.22 H (0.66-1.25) mg/dL Glucose 183 H (74-99) mg/dL POC Glucose (mg/dL) (70-110) mg/dL Phosphorus (2.5-4.5) mg/dL Total Protein 5.8 L (6.3-8.2) g/dL Microbiology - Last 24 Hours (Table) 01/12/23 10:00 Blood Culture - Preliminary Blood 01/12/23 15:55 Gram Stain - Preliminary Peritoneal Fluid Body Fluid Culture - Preliminary 01/12/23 10:00 Blood Culture Gram Stain - Preliminary Blood Blood Culture - Preliminary Coagulase Negative Staph Assessment and Plan Plan: Assessment: 1. End-stage renal disease maintained on peritoneal dialysis. 2. Altered mental status. Concern for infection. Blood culture positive for coag-negative staph. On antibiotics. Being followed by infectious disease and neurology. No evidence of peritonitis. EEG suggestive of toxic metabolic encephalopathy. No acute changes noted on CT. 3. Hypertension with chronic kidney disease. Stable. 4. Diabetes mellitus. 5. Volume overload. Pleural effusions noted on chest x-ray. 6. Chronic kidney disease mineral bone disease. Phosphorus 6.0. 6. Hypokalemia from diuretics and PD losses. Plan: Maintain current PD exchanges - 2.5 L every 6 hours alternating with 2.5 and 1.5% solution. Hold antihypertensives for systolic blood pressure less than 120. Hep-Lock IV fluids. Maintain torsemide. Add Renvela with meals. Replace potassium.
[2023-01-14] MEDS ORDERED: levETIRAcetam IV 750 MG in SODIUM CHLORIDE 0.9% 100 ML IVPB STA (11:25)
[2023-01-14 11:33] LABS: Platelet Count 98 k/uL (150-450)
[2023-01-14] MEDS: NON FORMULARY DRUG (Exemestane [Aromasin] 25 MG Tablet) PO SCH (11:41)
[2023-01-14] MEDS: SEVELAMER 800 MG TAB PO SCH ×2 (11:42→17:27)
[2023-01-14 12:07] LABS: Glucose,Whole Blood 218 mg/dL (70-110)
--- NOTE | 2023-01-14 14:32 | P.PN ---
Subjective Progress Note Date: 01/14/23 HISTORY OF PRESENT ILLNESS: this is a 72-year-old male with a previous medical history significant for h ypertension and hypertensive cardiovascular disease with left ventricular hypertrophy, hyperlipidemia, diabetes mellitus type 2, with diabetic polyneuropathy, history of coronary artery disease status post coronary artery bypass graft x3 followed by stent, history of atrial fibrillation status post ablation on long-term eliquis, history of meningioma status post resection back in April 2013 with left-sided weakness, end-stage renal disease on peritoneal dialysis, history of anemia of chronic kidney disease, history of secondary hyperparathyroidism,history of breast cancer on the right side status post right mastectomy followed by chemotherapy, patient was recently evaluated at the emergency department at [facility] on 01/04/2023 after he was found to have a right-sided Arguelles's palsy associated with a recent zoster and top located, at that time the patient was found to be somewhat hyponatremic, he was started on Famvir 500 mg orally twice every day for 7 days, and he was sent to my office I saw the patient in the office last Thursday and he was doing fine, I added a small dose of dexamethasone 0.75 mg orally twice every day for 5 days, patient was doing fine up until today in the morning when his was checking on him to do his peritoneal dialysis and he was barely responsive, therefore she contacted the EMS and was brought into the ER for evaluation patient was having a minimal leukocytosis, and he was also found to have hypothermia, he had a warming blanket, and the because of the prior presentation to rule out any varicella-zoster encephalitis he was started immediately on Acyclovir IV piggyback and infectious disease consultation was obtained along with nephrology consultation for peritoneal dialysis 01/13: Patient has been seen by infectious disease concerning for possible spontaneous bacterial peritonitis as no other source of infection was noted. Doubt encephalitis. Patient is continued on Rocephin and acyclovir was discontinued but because patient's mental sstatus has worsened, Dr. Ruiz is planning to restart antiviral. Peritoneal fluid culture is in progress. Blood culture is status post received. Patient has been seen and followed by mihai wagner for toxic metabolic encephalopathy. The patient had a repeat CAT scan of the brain which revealed no acute hemorrhage or mass effect. There is degenerative and nonspecific white matter changes most typical of remote ischemia. Carotid ultrasound revealed 50-69% stenosis of the right carotid bifurcation. Less than 50% stenosis of the left carotid bifurcation. EEG was abnormal Be seen with toxic metabolic encephalopathy or related to diffuse structural brain abnormality. Rare sharply controlled waves over the right parietal region did not clearly appear epileptiform but may suggest underlying cortical irritability. Clinical correlation with prolonged EEG recommended which is being done today. MRI of the brain has also been ordered by neurology. Patient has also been seen by nephrology for end-stage renal disease. Patient is continued on PD exchanges although solutions have been modified. Nephrology is changed furosemide to 40 mg once daily and discontinued Zaroxolyn. Telemetry is sinus rhythm with first-degree block. Temperature is up to 97.5. Heart rate is in the 70s and blood pressure 102/62, pulse ox 95% on room air. Patient has used CPAP during the night. Repeat blood work has been ordered for tomorrow. 01/14: Patient is seen and followed by nephrology and continued on CAPD, Renvela added. A prolonged EEG was performed yesterday as ordered by neurology. Report cannot exclude epileptiform focus in the right parietal region. Patient has been started on IV Keppra. MRI of the brain was also ordered but due to patient having [place] filter this needs to be cleared. Acyclovir has been resumed by infectious disease and patient is continued on ceftriaxone. Temperature 97.4, heart rate in the 60s and 70s, blood pressure 130/67, pulse ox 96% on 2 L nasal cannula. Repeat blood work reveals WBC of 4, hemoglobin 10.7, sodium 132, potassium 3.4, chloride 95, CO2 23, BUN 43 creatinine 4.22. Magnesium 2.2 and liver function tests normal. Consult PT and OT. REVIEW OF SYSTEMS: Constitutional: No documented fever, no chills, no night sweats. No weight change. positive for weakness, fatigue or lethargy. No daytime sleepiness. HEENT: No headache. right eye blind or double vision, no loss of vision. No loss of Hearing, no ringing in the ears, no dizziness. No nasal drainage or congestion. No epistaxis. No sore throat. Lungs: positive for shortness of breath, no cough, no sputum production. No wheezing. Reports dyspnea with activity. Cardiovascular: No chest pain, reported lower extremity edema. No palpitations. Reported paroxysmal nocturnal dyspnea. Reports orthopnea. No lightheadedness or dizziness. No syncopal episodes. Abdominal: Reports no abdominal pain. positive for nausea, vomiting. Reports occasional diarrhea. No constipation. No bloody or tarry stools reports loss of appetite. Genitourinary: No dysuria, increased frequency, urgency. No urinary retention. Musculoskeletal: No myalgias. positive for chronic left sided weakness, positive for gait dysfunction, no frequent falls. positive for back pain. posi tive for neck pain. Integumentary: right mastectomy incision is clean with LUISITO in place no lesions. No rash or pruritus. No unusual bruising. No change in hair or nails. Neurologic: No aphasia. No facial droop. Noted change in mentation. No head injury. No headache, positive for left sided weakness and left foot drop. Psychiatric: positive for depression. No anxiety. No mood swings. Endocrine: No abnormal blood sugars. No weight change. PHYSICAL EXAMINATION: General: this is a 72-year-old male who is lying down in bed in bed appears to be in no respiratory distress at rest. HEENT: Head is atraumatic, normocephalic, pupils were equal round reactive to light and recommendation, extraocular muscle movement were intact, sclera nonicteric, conjunctivae were pale, mucous membranes of the mouth are somewhat dry. Neck: Supple, no JVP, normal carotid upstroke bilaterally, no lymphadenopathy. Chest: Decreased breath sounds at the bases few rhonchi, no expiratory wheezes, no chest wall tenderness, no intercostal retractions. Heart: First heart sound is normal, second heart sounds normal, irregularly irregular, there is systolic ejection murmur 2/6 located in the left sternal border. Abdomen: Soft, nontender, nondistended, positive bowel sounds, positive for PD catheter Extremities: There is +2 edema to the bilateral lower extremities left greater than right no calf tenderness DP +2 bilaterally. Neurologic examination: Patient is awake alert and oriented X3 , cranial nerves II-12 appear grossly intact, there is left-sided weakness with left foot drop. ASSESSMENT AND PLAN: 1. Metabolic encephalopathy multifactorial rule out varicella-zoster encephalitis or HSV encephalitis, cannot rule out seizure. continue the patient on Acyclovir 500 mg IV piggyback every 24 hours, infectious disease consultation appreciated, blood cultures, urine culture, follow-up with the patient. Patient has been started on Keppra IV per neurology. 2. 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 Continue treatment with acyclovir for now 3. Right-sided pleural effusion with compressive atelectasis rule out pneumonia. Continue ceftriaxone 2 g IV piggyback every 24 hours. 4. leukocytosis likely related to recent dexamethasone use. Rule out sepsis. 6. History of CAD post CABG as well as PCI and stent placement. Continue patient on metoprolol XL 25 mg once every day, pravastatin 40 mg at bedtime. 7. History of paroxysmal atrial fibrillation. Continue patient on Eliquis 5 mg orally twice every day, continue amiodarone 100 mg orally once every day, metoprolol XL 25 mg orally once every day. 8. Hypertension and hypertensive cardiovascular disease. Continue patient on amlodipine 5 mg once every day, continue with metoprolol ER 25 mg orally once every day, monitor the patient blood pressure very closely. 9. Hyperlipidemia. Continue patient on pravastatin 40 mg at bedtime, monitor lipid panel, keep LDL 55-70. 10. Chronic kidney disease stage IV, approaching ESRD, we will arrange for Perma catheter placement and HD to be started 11. History of enlarged prostate. Continue Flomax 0.4 mg once every day, monit or for urinary retention. 12. Diabetes mellitus type 2. Continue Lantus 30 units at bedtime, monitor the patient blood glucose level and at bedtime with NovoLog scale 13. Diabetic polyneuropathy. Stable. 14. History of DVT status post IVC filter placement, continue with Eliquis 5 mg orally twice every day. 15. Chronic gout. Continue patient on allopurinol 100 mg orally once every day. 16. History of meningioma with left-sided weakness. Physical therapy evaluation. Patient is a full code. Impression and plan of care have been directed as dictated by the signing physician. Nita Linn nurse practitioner acting as scribe for signing physician. Objective - Vital Signs Vital signs: Vital Signs Temp 97.4 F L 01/14/23 10:00 Pulse 69 01/14/23 10:00 Resp 16 01/14/23 10:00 BP 130/67 01/14/23 10:00 Pulse Ox 96 01/14/23 10:00 FiO2 Intake & Output 01/13/23 01/14/23 01/14/23 18:59 06:59 18:59 Output Total 225 125 Balance -225 -125 Weight 102.058 kg Output: Urine 225 125 Other: Voiding Method Indwelling Catheter Indwelling Catheter Indwelling Catheter CAPD CAPD - Labs CBC & Chem 7: 01/14/23 08:56 01/14/23 08:56 Labs: Abnormal Lab Results - Last 24 Hours (Table) 01/13/23 01/13/23 01/13/23 Range/Units 11:28 16:34 19:54 RBC (4.30-5.90) m/uL Hgb (13.0-17.5) gm/dL Hct (39.0-53.0) % RDW (11.5-15.5) % Sodium (137-145) mmol/L Potassium (3.5-5.1) mmol/L Chloride (98-107) mmol/L BUN (9-20) mg/dL Creatinine (0.66-1.25) mg/dL Glucose (74-99) mg/dL POC Glucose (mg/dL) 167 H 192 H 192 H (70-110) mg/dL Total Protein (6.3-8.2) g/dL 01/14/23 01/14/23 01/14/23 Range/Units 05:56 08:56 08:56 RBC 3.52 L (4.30-5.90) m/uL Hgb 10.7 L (13.0-17.5) gm/dL Hct 31.0 L (39.0-53.0) % RDW 20.1 H (11.5-15.5) % Sodium 132 L (137-145) mmol/L Potassium 3.4 L (3.5-5.1) mmol/L Chloride 95 L (98-107) mmol/L BUN 43 H (9-20) mg/dL Creatinine 4.22 H (0.66-1.25) mg/dL Glucose 183 H (74-99) mg/dL POC Glucose (mg/dL) 165 H (70-110) mg/dL Total Protein 5.8 L (6.3-8.2) g/dL Microbiology - Last 24 Hours (Table) 01/12/23 10:00 Blood Culture - Preliminary Blood 01/12/23 15:55 Gram Stain - Preliminary Peritoneal Fluid Body Fluid Culture - Preliminary 01/12/23 10:00 Blood Culture Gram Stain - Preliminary Blood Blood Culture - Preliminary Coagulase Negative Staph
--- NOTE | 2023-01-14 14:39 | P.PN ---
Subjective Progress Note Date: 01/14/23 Principal diagnosis: Encephalitis Patient is a 72-year-old male with a past medical history significant for end-stage renal disease on peritoneal dialysis, also history of brain tumor resection followed by an episode of encephalitis about 10 years ago history provided by the son and did have a history of shingles, admitted to the hospital with mental status status changes and the patient was noticed to be hypothermic with initial concern for possible SBP On today's evaluation and that is 01/14/2023, the patient remains to be afebrile, patient seemed to be slightly more awake today and it off and some simple questions continued to deny any headache no chest pain shortness of breath or cough, nausea vomiting or diarrhea has been reported Objective - Vital Signs Vital signs: Vital Signs Temp 97.4 F L 01/14/23 10:00 Pulse 69 01/14/23 10:00 Resp 16 01/14/23 10:00 BP 130/67 01/14/23 10:00 Pulse Ox 96 01/14/23 10:00 FiO2 Intake & Output 01/13/23 01/14/23 01/14/23 18:59 06:59 18:59 Output Total 225 125 Balance -225 -125 Weight 102.058 kg Output: Urine 225 125 Other: Voiding Method Indwelling Catheter Indwelling Catheter Indwelling Catheter CAPD CAPD - Exam GENERAL DESCRIPTION: An elderly male lying in bed in no distress RESPIRATORY SYSTEM: Unlabored breathing , decreased breath sounds at bases HEART: S1 S2 regular rate and rhythm , ABDOMEN: Soft , no tenderness EXTREMITIES: No edema feet - Labs CBC & Chem 7: 01/14/23 08:56 01/14/23 08:56 Labs: Abnormal Lab Results - Last 24 Hours (Table) 01/13/23 01/13/23 01/14/23 Range/Units 16:34 19:54 05:56 RBC (4.30-5.90) m/uL Hgb (13.0-17.5) gm/dL Hct (39.0-53.0) % RDW (11.5-15.5) % Plt Count (150-450) k/uL Lymphocytes # (1.0-4.8) k/uL Sodium (137-145) mmol/L Potassium (3.5-5.1) mmol/L Chloride (98-107) mmol/L BUN (9-20) mg/dL Creatinine (0.66-1.25) mg/dL Glucose (74-99) mg/dL POC Glucose (mg/dL) 192 H 192 H 165 H (70-110) mg/dL Total Protein (6.3-8.2) g/dL 01/14/23 01/14/23 01/14/23 Range/Units 08:56 08:56 11:57 RBC 3.52 L (4.30-5.90) m/uL Hgb 10.7 L (13.0-17.5) gm/dL Hct 31.0 L (39.0-53.0) % RDW 20.1 H (11.5-15.5) % Plt Count 98 L (150-450) k/uL Lymphocytes # 0.3 L (1.0-4.8) k/uL Sodium 132 L (137-145) mmol/L Potassium 3.4 L (3.5-5.1) mmol/L Chloride 95 L (98-107) mmol/L BUN 43 H (9-20) mg/dL Creatinine 4.22 H (0.66-1.25) mg/dL Glucose 183 H (74-99) mg/dL POC Glucose (mg/dL) 218 H (70-110) mg/dL Total Protein 5.8 L (6.3-8.2) g/dL Microbiology - Last 24 Hours (Table) 01/12/23 10:00 Blood Culture - Preliminary Blood 01/12/23 15:55 Gram Stain - Preliminary Peritoneal Fluid Body Fluid Culture - Preliminary 01/12/23 10:00 Blood Culture Gram Stain - Preliminary Blood Blood Culture - Preliminary Coagulase Negative Staph Assessment and Plan (1) Encephalopathy acute Current Visit: Yes Status: Acute Code(s): G93.40 - ENCEPHALOPATHY, UNSPECIFIED SNOMED Code(s): 78179734 (2) AMS (altered mental status) Current Visit: Yes Status: Acute Code(s): R41.82 - ALTERED MENTAL STATUS, UNSPECIFIED SNOMED Code(s): 076984416 Plan: 1patient presented to hospital with sepsis in this patient with hypothermia hypotension did have leukopenia concern for possible SBP as no other obvious focus of infection chest x-ray is mostly pulmonary vascular congestion, clinically doubt encephalitis initially as the patient was awake alert oriented 3 yesterday and denied any headache, the patient peritoneal fluid came back negative and now with worsening of his mentation and a previous history of encephalitis ideally would have also for LP however the patient is on Eliquis, and high risk of bleeding 2-patient seemed to have some clinical improvement and will continue the patient on acyclovir, Multiple family members the bedside questions were answered Time with Patient: Less than 30
--- NOTE | 2023-01-14 15:00 | P.PN ---
Subjective Progress Note Date: 01/14/23 Patient's and patient's daughter were present today. Patient is laying in the bed. The family believes patient is slightly better today as compared to yesterday. He is talking a bit more, and speaking more word sentences. He denies headache. Patient's daughter mentioned that she noticed yesterday that he had 3 episodes in which she suddenly started staring off in space was less responsive, would not acknowledge, each lasting for about 5 minutes. The nurse also noticed today at 7:15 AM, that he was not responding, staring off in space, some what less responsive, not answering questions. However she noticed that after this spell was over in about 5-10 minutes, he was much more awake and alert. This is concerning for possible seizures. Patient's son mentioned that at that time he was diagnosed with brain tumor, underwent resection, he also suffered from encephalitis at the same time. Family mentioned that after he was given "steroids", he just perked up completely. Family believes that patient at present is behaving exactly like how he was with encephalitis. Patient was on acyclovir, but it was discontinued by infectious disease, but then resumed last night. Objective - Vital Signs Vital signs: Vital Signs Temp 97.4 F L 01/14/23 10:00 Pulse 69 01/14/23 10:00 Resp 16 01/14/23 10:00 BP 130/67 01/14/23 10:00 Pulse Ox 96 01/14/23 10:00 FiO2 Intake & Output 01/13/23 01/14/23 01/14/23 18:59 06:59 18:59 Output Total 225 125 Balance -225 -125 Weight 102.058 kg Output: Urine 225 125 Other: Voiding Method Indwelling Catheter Indwelling Catheter Indwelling Catheter CAPD CAPD - Exam Patient is laying in the bed, appears encephalopathic. He is snoring. He has oxygen running. Patient denies headache. On examination patient able to tell me his name. His speech appears clear. He has right facial weakness, peripheral type. 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 Right pupil has corneal density and has no vision right eye. Patient has full visual miller with the left eye. Patient has left sided drift. Patient has significant myoclonic jerks of outstretched hands, left much more than right (slightly better than yesterday). Patient able to dorsiflex with some strength, and able to lift his right leg off the bed with some resistance. Left leg is very weak which is baseline, not even antigravity. No obvious seizure-like activity noted at this time. - Labs CBC & Chem 7: 01/14/23 08:56 01/14/23 08:56 Labs: Abnormal Lab Results - Last 24 Hours (Table) 01/13/23 01/13/23 01/14/23 Range/Units 16:34 19:54 05:56 RBC (4.30-5.90) m/uL Hgb (13.0-17.5) gm/dL Hct (39.0-53.0) % RDW (11.5-15.5) % Sodium (137-145) mmol/L Potassium (3.5-5.1) mmol/L Chloride (98-107) mmol/L BUN (9-20) mg/dL Creatinine (0.66-1.25) mg/dL Glucose (74-99) mg/dL POC Glucose (mg/dL) 192 H 192 H 165 H (70-110) mg/dL Total Protein (6.3-8.2) g/dL 01/14/23 01/14/23 Range/Units 08:56 08:56 RBC 3.52 L (4.30-5.90) m/uL Hgb 10.7 L (13.0-17.5) gm/dL Hct 31.0 L (39.0-53.0) % RDW 20.1 H (11.5-15.5) % Sodium 132 L (137-145) mmol/L Potassium 3.4 L (3.5-5.1) mmol/L Chloride 95 L (98-107) mmol/L BUN 43 H (9-20) mg/dL Creatinine 4.22 H (0.66-1.25) mg/dL Glucose 183 H (74-99) mg/dL POC Glucose (mg/dL) (70-110) mg/dL Total Protein 5.8 L (6.3-8.2) g/dL Microbiology - Last 24 Hours (Table) 01/12/23 10:00 Blood Culture - Preliminary Blood 01/12/23 15:55 Gram Stain - Preliminary Peritoneal Fluid Body Fluid Culture - Preliminary 01/12/23 10:00 Blood Culture Gram Stain - Preliminary Blood Blood Culture - Preliminary Coagulase Negative Staph Assessment and Plan Assessment: * Altered mental status, likely due to toxic metabolic encephalopathy * Acute hypothermia, hypotension, sepsis, with blood cultures growing gram- positive cocci in clusters (coagulase-negative staph). Family concerned about encephalitis. * Abnormal routine and prolonged EEG * Patient has recurrent episodes of staring off spells in space, each lasting for about 5-10 minutes, concerning for partial seizures. * Mild pancytopenia, possible due to sepsis. * End-stage renal disease on peritoneal dialysis * History of Atrial fibrillation, on Eliquis * Recent history of shingles with reported right Arguelles's palsy 01/04/2023. * History of cerebral meningioma probably involving right parietal falx region, as per CT findings, status post resection 10 years ago, with residual left leg weakness. Family believed patient had encephalitis at the time he was diagnosed with brain tumor. * Hypertension * Diabetes * Coronary artery disease * Hyperlipidemia * Right eye blindness, chronic * Obesity Plan: * Prolonged EEG for 2.5 hours performed 01/13/2023 revealed no definitive epile ptiform activity was present. This EEG consisted of triphasic waves which are not epileptiform in nature. Triphasic waves can be seen in the setting of metabolic encephalopathy. Also diffuse theta and delta range slowing was seen with greater focality in the right parietal region. These findings are not epileptiform in nature. Overall, these findings indicate moderate diffuse cerebral dysfunction with greater focal involvement of the right parietal region. An epileptiform focus involving the right parietal region cannot necessarily be excluded. In a correlation is recommended. * Patient is exhibiting some recurrent stereotypical episodes of staring spells with less responsiveness, concerning for focal seizures. Patient is empirically started on Keppra, given loading dose of Keppra 750 mg IV and then will be maintained on Keppra 500 mg IV once daily. Possible side effects were discussed with family members. * Routine EEG 01/12/2023 was abnormal due to background slowing of moderate degree consistent with toxic metabolic encephalopathy. Some sharply contoured waves were seen in the right parietal lesion, which did not appear clearly epileptiform. This may be related to breach rhythm from previous craniotomy. Suggest prolonged, sleep deprived EEG. * MRI of the brain rule out CVA, rule out encephalitis. Patient does have history of [place] filter. Needs clearance. * Patient's family is very concerned that patient has encephalitis. Acyclovir has been resumed. LP cannot be performed because patient on Eliquis. Patient to be continued on acyclovir. * Patient's blood culture also grew coagulase negative staph aureus. ID on board. Continue ceftriaxone 2 g every 24 hours. * Carotid Doppler revealed 50-69% stenosis of right carotid bifurcation. There is < 50% stenosis left carotid. Continue Eliquis 5 mg daily for previous history of atrial fibrillation. * Discussed in detail with patient's family in detail.
[2023-01-14] MEDS: ACYCLOVIR SODIUM 500 MG in SODIUM CHLORIDE 0.9% 100 ML IVPB SCH (15:07)
[2023-01-14] MEDS: POTASSIUM CHLORIDE ER 20 MEQ TAB.ER PO SCH (15:07)
[2023-01-14 16:44] LABS: Glucose,Whole Blood 211 mg/dL (70-110)
[2023-01-14 20:20] LABS: Glucose,Whole Blood 183 mg/dL (70-110)
[2023-01-14] MEDS: PRAVASTATIN SODIUM 40 MG TAB PO SCH (23:18)
[2023-01-14] MEDS: INSULIN DETEMIR (LEVEMIR) 100 UNIT/ML SYR SQ SCH (23:23)
[2023-01-15] MEDS: DIALYSIS (PERIT 1.5%) 2,500 ML 37.5 G/2,500 ML BAG INTRAPERIT SCH ×4 (04:24→22:15)
[2023-01-15 05:58] LABS: Glucose,Whole Blood 204 mg/dL (70-110)
[2023-01-15] MEDS: SEVELAMER 800 MG TAB PO SCH ×3 (06:32→17:09)
[2023-01-15] MEDS: INSULIN ASPART (NovoLOG) 100 UNIT/ML VIAL SQ SCH ×4 (06:32→20:35)
[2023-01-15] MEDS: POTASSIUM CHLORIDE ER 20 MEQ TAB.ER PO SCH (08:33)
[2023-01-15] MEDS: APIXABAN 2.5 MG TABLET PO SCH ×2 (08:33→20:35)
[2023-01-15] MEDS: TORSEMIDE 20 MG TAB PO SCH (08:33)
[2023-01-15] MEDS: METOPROLOL SUCCINATE (ER) 25 MG TAB.ER.24H PO SCH (08:33)
[2023-01-15] MEDS: AMIODARONE 200 MG TAB PO SCH (08:33)
[2023-01-15] MEDS: amLODIPine 5 MG TAB PO SCH ×2 (08:33→20:35)
[2023-01-15] MEDS: hydrALAZINE HCL 50 MG TAB PO SCH ×2 (08:33→20:35)
[2023-01-15] MEDS: allopurinoL 100 MG TAB PO SCH (08:34)
[2023-01-15] MEDS: TAMSULOSIN 0.4 MG CAP.ER.24H PO SCH ×2 (08:34→20:35)
[2023-01-15] MEDS ORDERED: levETIRAcetam IV 500 MG in SODIUM CHLORIDE 0.9% 100 ML IVPB SCH (09:00)
--- NOTE | 2023-01-15 11:18 | P.PN ---
Subjective Patient is seen in follow-up for end-stage renal disease. He is maintained on peritoneal dialysis. No problems with PD changes per nurse. Blood pressure stable. Mentation about the same as yesterday. Family present at bedside. Vital signs are stable. General: Awake. No acute distress. HEENT: Head exam is unremarkable. LUNGS: No audible rhonchi or wheezes. HEART: Rate and Rhythm are regular. ABDOMEN: Nontender. EXTREMITITES: No edema. Objective - Vital Signs Vital signs: Vital Signs Temp 97.9 F 01/15/23 08:31 Pulse 72 01/15/23 08:31 Resp 18 01/15/23 08:31 BP 148/72 01/15/23 08:31 Pulse Ox 97 01/15/23 08:31 FiO2 Intake & Output 01/14/23 01/15/23 01/15/23 18:59 06:59 18:59 Intake Total 90 Output Total 425 Balance -425 90 Weight 107.5 kg Intake: Oral 90 Output: Urine 425 Other: Voiding Method Indwelling Catheter Indwelling Catheter CAPD CAPD - Labs CBC & Chem 7: 01/14/23 08:56 01/14/23 08:56 Labs: Abnormal Lab Results - Last 24 Hours (Table) 01/14/23 01/14/23 01/14/23 Range/Units 08:56 08:56 11:57 Plt Count 98 L (150-450) k/uL Lymphocytes # 0.3 L (1.0-4.8) k/uL POC Glucose (mg/dL) 218 H (70-110) mg/dL Hemoglobin A1c 6.7 H (0.0-6.0) % 01/14/23 01/14/23 01/15/23 Range/Units 16:42 20:18 05:56 Plt Count (150-450) k/uL Lymphocytes # (1.0-4.8) k/uL POC Glucose (mg/dL) 211 H 183 H 204 H (70-110) mg/dL Hemoglobin A1c (0.0-6.0) % Microbiology - Last 24 Hours (Table) 01/12/23 15:55 Gram Stain - Preliminary Peritoneal Fluid Body Fluid Culture - Preliminary 01/12/23 10:00 Blood Culture - Preliminary Blood Assessment and Plan Plan: Assessment: 1. End-stage renal disease maintained on peritoneal dialysis. 2. Altered mental status. Concern for infection. Blood culture positive for coag-negative staph. On antibiotics. Being followed by infectious disease and neurology. No evidence of peritonitis. EEG suggestive of toxic metabolic encephalopathy. No acute changes noted on CT. On Keppra. Also on IV acyclovir. 3. Hypertension with chronic kidney disease. Stable. 4. Diabetes mellitus. 5. Volume overload. Pleural effusions noted on chest x-ray. 6. Chronic kidney disease mineral bone disease. Phosphorus 6.0. On Renvela. 7. Hypokalemia from diuretics and PD losses. Replaced. Also on potassium supplementation. Plan: Maintain current PD exchanges - 2.5 L every 6 hours alternating with 2.5 and 1.5% solution. Hold antihypertensives for systolic blood pressure less than 120. Hep-Lock IV fluids. Maintain torsemide. Repeat chest x-ray.
[2023-01-15 11:48] LABS: Glucose,Whole Blood 197 mg/dL (70-110)
[2023-01-15] MEDS: NON FORMULARY DRUG (Exemestane [Aromasin] 25 MG Tablet) PO SCH (11:48)
--- NOTE | 2023-01-15 12:48 | XR ---
EXAMINATION TYPE: XR chest 1V DATE OF EXAM: 01/15/2023 12:35 PM COMPARISON: Chest radiographs from 01/12/2023 TECHNIQUE: XR chest 1V Frontal view of the chest. CLINICAL INDICATION:Male, 72 years old with history of sob; FINDINGS: Lungs/Pleura: No evidence of focal consolidation or pneumothorax. Blunting of the costophrenic angles is present. Pulmonary vascularity: Mild pulmonary vascular congestion. Heart/mediastinum: Cardiomediastinal silhouette is partially obscured due to overlying and adjacent o pacities. Musculoskeletal: No acute osseous pathology. Midline sternotomy wires are noted. IMPRESSION: Cardiomegaly, pulmonary vascular congestion and bilateral pleural effusions. Correlate with BNP for c ongestive heart failure.
--- NOTE | 2023-01-15 13:26 | CT ---
EXAMINATION TYPE: CT brain wo con CT DLP: 1201.8 mGycm, Automated exposure control for dose reduction was used. DATE OF EXAM: 01/15/2023 12:37 PM COMPARISON: 01/13/2023. CLINICAL INDICATION:Male, 72 years old with history of AMS, rule out CVA, AMS TECHNIQUE: Brain: Axial CT images of the brain were obtained with coronal and sagittal reformats created and rev iewed. Contrast used: None. Oral contrast used: None. FINDINGS: Brain: Extra-axial spaces: No abnormal extra-axial fluid collections. Ventricular system: Dilatation in proportion to cerebral atrophy. Cerebral parenchyma: Remote injury to the right frontal lobe near the vertex. Cerebral atrophy. No ac [place] intraparenchymal hemorrhage or mass effect. The fraser-white junction is well differentiated. Scat tered hypoattenuating areas are seen within the white matter. Cerebellum: Unremarkable. Mass effect: No evidence of midline shift. Intracranial vasculature: Atherosclerotic calcifications of the intracranial vessels. Soft tissues: Normal. Calvarium/osseous structures: No depressed skull fracture. Postsurgical changes with hardware in plac e. Paranasal sinuses and mastoid air cells: The mastoid air cells are clear. Similar suggested 1.3 cm mu cous retention cyst within the left maxillary sinus. Visualized orbits: Bilateral aphakia IMPRESSION: 1. No acute intracranial process. 2. Nonspecific white matter changes, likely secondary to chronic small vessel ischemic disease. 3. Similar postsurgical changes with a right frontal lobe remote injury.
--- NOTE | 2023-01-15 14:50 | P.PN ---
Subjective Progress Note Date: 01/15/23 12/16/2022: Patient's and patient's son were present today. They're concerned that patient is more sleepy today. Patient became somnolent after he received Keppra. Since starting Keppra, he has not had any more staring off spells. Per patient's son, he is also answering questions better, able to answer full questions better. On asking patient how he was feeling, states "pretty good". Patient denies headache. Denies dizziness his orientation has improved. Patient is laying in the bed. T 12/15/2022: Patient's daughter mentioned that she noticed yesterday that he had 3 episodes in which he suddenly started staring off in space was less responsive, would not acknowledge, each lasting for about 5 minutes. The nurse also noticed today at 7:15 AM, that he was not responding, staring off in space, some what less responsive, not answering questions for almost 10 minutes. However she noticed that after this spell was over in about 5-10 minutes, he was much more awake and alert. These stereotypical spells are concerning for possible seizures. Patient's son mentioned that at that time he was diagnosed with brain tumor, underwent resection, he also suffered from encephalitis at the same time. Family mentioned that after he was given "steroids", he just perked up completely. Family believes that patient at present is behaving exactly like how he was with encephalitis. Patient is currently on acyclovir. Objective - Vital Signs Vital signs: Vital Signs Temp 97.9 F 01/15/23 08:31 Pulse 72 01/15/23 08:31 Resp 18 01/15/23 08:31 BP 148/72 01/15/23 08:31 Pulse Ox 97 01/15/23 08:31 FiO2 Intake & Output 01/14/23 01/15/23 01/15/23 18:59 06:59 18:59 Intake Total 90 Output Total 425 Balance -425 90 Weight 107.5 kg Intake: Oral 90 Output: Urine 425 Other: Voiding Method Indwelling Catheter Indwelling Catheter Indwelling Catheter CAPD CAPD CAPD - Exam Patient is laying in the bed, appears encephalopathic. He is more easily arousable. Patient denies headache or dizziness. No nausea or vomiting. Patient knows it is January 2023 and that he is in [facility] in [place]. Speech and language function are normal. Patient answering appropriately. On muscle strength testing (right/left) deltoid 5/5-4+, triceps 5/5-, biceps 5/5-, environmental engineer scientist 5/5-, hip flexion 4/1, ankle dorsiflexion 4-/0. Patient has right facial weakness, peripheral type. Right pupil has corneal density and has no vision right eye. Patient has full visual miller with the left eye. Patient has left sided drift. patient's myoclonic jerks have improved as compared to yesterday. No obvious seizure-like activity noted at this time. - Labs CBC & Chem 7: 01/14/23 08:56 01/14/23 08:56 Labs: Abnormal Lab Results - Last 24 Hours (Table) 01/14/23 01/14/23 01/14/23 Range/Units 08:56 11:57 16:42 POC Glucose (mg/dL) 218 H 211 H (70-110) mg/dL Hemoglobin A1c 6.7 H (0.0-6.0) % 01/14/23 01/15/23 Range/Units 20:18 05:56 POC Glucose (mg/dL) 183 H 204 H (70-110) mg/dL Hemoglobin A1c (0.0-6.0) % Microbiology - Last 24 Hours (Table) 01/12/23 15:55 Gram Stain - Preliminary Peritoneal Fluid Body Fluid Culture - Preliminary 01/12/23 10:00 Blood Culture - Preliminary Blood Assessment and Plan Assessment: * Altered mental status, likely due to toxic metabolic encephalopathy, 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 Cultures so far negative. Blood cultures growing coagulase-negative staph likely from contaminant as per ID. Family concerned about encephalitis. * Abnormal routine and prolonged EEG * Patient has recurrent episodes of staring off spells in space, each lasting for about 5-10 minutes, concerning for partial seizures. Patient on Keppra, no further stereotypical spells since then. 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 * History of cerebral meningioma probably involving right parietal falx region, as per CT findings, status post resection 10 years ago, with residual left leg weakness. Family believed patient had encephalitis at the time he was diagnosed with brain tumor. * Hypertension * Diabetes * Coronary artery disease * Hyperlipidemia * Right eye blindness, chronic * Obesity Plan: * Patient currently on Keppra for possible seizure-like spells. He is somnolent, but has not had any further staring off spells. Patient is fairly well oriented as per examination above. We will check CT head, to rule out any CVA or other structural abnormalities. * Prolonged EEG for 2.5 hours performed 01/13/2023 revealed no definitive epileptiform activity was present. This EEG consisted of triphasic waves which are not epileptiform in nature. Triphasic waves can be seen in the setting of metabolic encephalopathy. Also diffuse theta and delta range slowing was seen with greater focality in the right parietal region. These findings are not epileptiform in nature. Overall, these findings indicate moderate diffuse cerebral dysfunction with greater focal involvement of the right parietal region. An epileptiform focus involving the right parietal region cannot necessarily be excluded. In a correlation is recommended. * Routine EEG 01/12/2023 was abnormal due to background slowing of moderate deg ree consistent with toxic metabolic encephalopathy. Some sharply contoured waves were seen in the right parietal lesion, which did not appear clearly epileptiform. This may be related to breach rhythm from previous craniotomy. Suggest prolonged, sleep deprived EEG. * MRI of the brain cannot be performed because not able to receive clearance for [place] filter. * Repeat CT head performed today revealed no acute interval process. Nonspecific white matter changes, likely secondary to chronic small vessel ischemic disease. Similar postsurgical changes with a right frontal lobe remote injury. * Patient is being treated for presumed encephalitis. Acyclovir has been resumed. LP cannot be performed because patient on Eliquis. * Patient's blood culture also grew coagulase negative staph aureus. ID believes is contaminant. Continue ceftriaxone 2 g every 24 hours. * Carotid Doppler revealed 50-69% stenosis of right carotid bifurcation. There is < 50% stenosis left carotid. * Continue Eliquis 5 mg daily for previous history of atrial fibrillation. * Discussed in detail with patient's family in detail. Discussed with ID.
[2023-01-15 16:26] LABS: Glucose,Whole Blood 177 mg/dL (70-110)
[2023-01-15 16:39] LABS: HSV I IgG Interp POSITIVE (NEGATIVE); HSV II IgG Interp NEGATIVE (NEGATIVE)
[2023-01-15] MEDS: ACYCLOVIR SODIUM 500 MG in SODIUM CHLORIDE 0.9% 100 ML IVPB SCH (17:09)
[2023-01-15 20:07] LABS: Glucose,Whole Blood 180 mg/dL (70-110)
[2023-01-15] MEDS: INSULIN DETEMIR (LEVEMIR) 100 UNIT/ML SYR SQ SCH (20:35)
[2023-01-15] MEDS: PRAVASTATIN SODIUM 40 MG TAB PO SCH (20:35)
[2023-01-16] MEDS: DIALYSIS (PERIT 1.5%) 2,500 ML 37.5 G/2,500 ML BAG INTRAPERIT SCH (04:37)
[2023-01-16 06:03] LABS: Glucose,Whole Blood 150 mg/dL (70-110)
[2023-01-16] MEDS: INSULIN ASPART (NovoLOG) 100 UNIT/ML VIAL SQ SCH ×4 (06:22→20:57)
[2023-01-16] MEDS: SEVELAMER 800 MG TAB PO SCH ×3 (06:33→16:55)
--- NOTE | 2023-01-16 07:57 | P.PN ---
Subjective Progress Note Date: 01/15/23 Principal diagnosis: Encephalitis Patient is a 72-year-old male with a past medical history significant for end-stage renal disease on peritoneal dialysis, also history of brain tumor resection followed by an episode of encephalitis about 10 years ago history provided by the son and did have a history of shingles, admitted to the hospital with mental status status changes and the patient was noticed to be hypothermic with initial concern for possible SBP On today's evaluation and that is 01/15/2023, the patient contiues to be afebrile, patient seemed to be more sleepy after started on Keppra per family but arousable and responding appropriately ,Pt continued to deny any headache no chest pain shortness of breath or cough, nausea vomiting or diarrhea has been reported Objective - Vital Signs Vital signs: Vital Signs Temp 97.9 F 01/15/23 08:31 Pulse 72 01/15/23 08:31 Resp 18 01/15/23 08:31 BP 148/72 01/15/23 08:31 Pulse Ox 97 01/15/23 08:31 FiO2 Intake & Output 01/14/23 01/15/23 01/15/23 18:59 06:59 18:59 Intake Total 90 Output Total 425 Balance -425 90 Weight 107.5 kg Intake: Oral 90 Output: Urine 425 Other: Voiding Method Indwelling Catheter Indwelling Catheter CAPD CAPD - Exam GENERAL DESCRIPTION: An elderly male lying in bed in no distress RESPIRATORY SYSTEM: Unlabored breathing , decreased breath sounds at bases HEART: S1 S2 regular rate and rhythm , ABDOMEN: Soft , no tenderness EXTREMITIES: No edema feet - Labs CBC & Chem 7: 01/14/23 08:56 01/14/23 08:56 Labs: Abnormal Lab Results - Last 24 Hours (Table) 01/14/23 01/14/23 01/14/23 Range/Units 08:56 08:56 11:57 Plt Count 98 L (150-450) k/uL Lymphocytes # 0.3 L (1.0-4.8) k/uL POC Glucose (mg/dL) 218 H (70-110) mg/dL Hemoglobin A1c 6.7 H (0.0-6.0) % 01/14/23 01/14/23 01/15/23 Range/Units 16:42 20:18 05:56 Plt Count (150-450) k/uL Lymphocytes # (1.0-4.8) k/uL POC Glucose (mg/dL) 211 H 183 H 204 H (70-110) mg/dL Hemoglobin A1c (0.0-6.0) % Microbiology - Last 24 Hours (Table) 01/12/23 15:55 Gram Stain - Preliminary Peritoneal Fluid Body Fluid Culture - Preliminary 01/12/23 10:00 Blood Culture - Preliminary Blood Assessment and Plan (1) Encephalopathy acute Current Visit: Yes Status: Acute Code(s): G93.40 - ENCEPHALOPATHY, UNSPECIFIED SNOMED Code(s): 45925245 (2) AMS (altered mental status) Current Visit: Yes Status: Acute Code(s): R41.82 - ALTERED MENTAL STATUS, U NSPECIFIED SNOMED Code(s): 411789436 Plan: 1patient presented to hospital with sepsis in this patient with hypothermia hypotension did have leukopenia concern for possible SBP as no other obvious focus of infection chest x-ray is mostly pulmonary vascular congestion, clinically doubt encephalitis initially as the patient was awake alert oriented 3 yesterday and denied any headache, the patient peritoneal fluid came back negative and now with worsening of his mentation and a previous history of encephalitis ideally would have also for LP however the patient is on Eliquis, and high risk of bleeding 2-patient did have some clinical improvement and will continue the patient on acyclovir, awaiting HSV and VZV serology family members the bedside questions were answered Time with Patient: Less than 30
[2023-01-16 08:38] LABS: Anisocytosis Moderate; Basophils % (A) 0 %; Eosinophils % (A) 1 %; HCT 29.1 % (39.0-53.0); HGB 9.5 gm/dL (13.0-17.5); Lymphocytes # (A) 0.3 k/uL (1.0-4.8); Lymphocytes % (A) 7 %; MCH 29.8 pg (25.0-35.0); MCHC 32.8 g/dL (31.0-37.0); Macrocytosis Slight; Mean Platelet Volume 8.2; Monocytes # (A) 0.3 k/uL (0-1.0); Monocytes % (A) 7 %; Neutrophils # (A) 3.6 k/uL (1.3-7.7); Neutrophils % (A) 83 %; RDW 20.2 % (11.5-15.5); WBC 4.4 k/uL (3.8-10.6)
[2023-01-16 08:41] LABS: Platelet Count 99 k/uL (150-450)
[2023-01-16 08:45] LABS: Albumin 2.8 g/dL (3.5-5.0); Magnesium 2.1 mg/dL (1.6-2.3); Potassium 3.7 mmol/L (3.5-5.1); Total Bilirubin 0.3 mg/dL (0.2-1.3)
[2023-01-16] MEDS ORDERED: levETIRAcetam IV 500 MG/5 ML VIAL IVP SCH (09:00)
[2023-01-16] MEDS: TAMSULOSIN 0.4 MG CAP.ER.24H PO SCH ×2 (09:03→20:56)
[2023-01-16] MEDS: METOPROLOL SUCCINATE (ER) 25 MG TAB.ER.24H PO SCH (09:03)
[2023-01-16] MEDS: amLODIPine 5 MG TAB PO SCH ×2 (09:03→20:56)
[2023-01-16] MEDS: APIXABAN 2.5 MG TABLET PO SCH ×2 (09:03→20:57)
[2023-01-16] MEDS: hydrALAZINE HCL 50 MG TAB PO SCH ×2 (09:03→20:57)
[2023-01-16] MEDS: TORSEMIDE 20 MG TAB PO SCH (09:03)
[2023-01-16] MEDS: POTASSIUM CHLORIDE ER 20 MEQ TAB.ER PO SCH (09:03)
[2023-01-16] MEDS: AMIODARONE 200 MG TAB PO SCH (09:03)
[2023-01-16] MEDS: allopurinoL 100 MG TAB PO SCH (09:03)
[2023-01-16] MEDS: DIALYSIS (PERIT 2.5%) 2,500 ML 62.5 G/2,500 ML BAG INTRAPERIT SCH ×3 (10:14→22:04)
--- NOTE | 2023-01-16 10:56 | P.PN ---
Subjective Patient is seen in follow-up for end-stage renal disease. He is maintained on peritoneal dialysis. No problems with PD changes per nurse. Blood pressure stable. No significant change in mentation. Hasn't had a bowel movement since admission. Family present at bedside. Vital signs are stable. General: Awake. No acute distress. HEENT: Head exam is unremarkable. LUNGS: No audible rhonchi or wheezes. HEART: Rate and Rhythm are regular. ABDOMEN: Nontender. EXTREMITITES: No edema. Objective - Vital Signs Vital signs: Vital Signs Temp 96.6 F L 01/16/23 04:00 Pulse 74 01/16/23 08:47 Resp 16 01/16/23 08:47 BP 154/79 01/16/23 08:47 Pulse Ox 96 01/16/23 09:17 FiO2 Intake & Output 01/15/23 01/16/23 01/16/23 18:59 06:59 18:59 Intake Total 208 Output Total 500 Balance 208 -500 Intake: Oral 208 Output: Urine 500 Other: Voiding Method Indwelling Catheter Indwelling Catheter CAPD CAPD # Bowel Movements 0 - Labs CBC & Chem 7: 01/16/23 07:37 01/16/23 07:37 Labs: Abnormal Lab Results - Last 24 Hours (Table) 01/15/23 01/15/23 01/15/23 Range/Units 08:04 11:37 16:20 RBC (4.30-5.90) m/uL Hgb (13.0-17.5) gm/dL Hct (39.0-53.0) % RDW (11.5-15.5) % Plt Count (150-450) k/uL Lymphocytes # (1.0-4.8) k/uL Sodium (137-145) mmol/L Chloride (98-107) mmol/L BUN (9-20) mg/dL Creatinine (0.66-1.25) mg/dL Glucose (74-99) mg/dL POC Glucose (mg/dL) 197 H 177 H (70-110) mg/dL Total Protein (6.3-8.2) g/dL Albumin (3.5-5.0) g/dL HSV I IgG Interpret POSITIVE A (NEGATIVE) VZV IgG Interpret POSITIVE A (NEGATIVE) 01/15/23 01/16/23 01/16/23 Range/Units 20:05 06:01 07:37 RBC (4.30-5.90) m/uL Hgb (13.0-17.5) gm/dL Hct (39.0-53.0) % RDW (11.5-15.5) % Plt Count (150-450) k/uL Lymphocytes # (1.0-4.8) k/uL Sodium 134 L (137-145) mmol/L Chloride 97 L (98-107) mmol/L BUN 44 H (9-20) mg/dL Creatinine 4.15 H (0.66-1.25) mg/dL Glucose 128 H (74-99) mg/dL POC Glucose (mg/dL) 180 H 150 H (70-110) mg/dL Total Protein 5.0 L (6.3-8.2) g/dL Albumin 2.8 L (3.5-5.0) g/dL HSV I IgG Interpret (NEGATIVE) VZV IgG Interpret (NEGATIVE) 01/16/23 Range/Units 07:37 RBC 3.20 L (4.30-5.90) m/uL Hgb 9.5 L (13.0-17.5) gm/dL Hct 29.1 L (39.0-53.0) % RDW 20.2 H (11.5-15.5) % Plt Count 99 L (150-450) k/uL Lymphocytes # 0.3 L (1.0-4.8) k/uL Sodium (137-145) mmol/L Chloride (98-107) mmol/L BUN (9-20) mg/dL Creatinine (0.66-1.25) mg/dL Glucose (74-99) mg/dL POC Glucose (mg/dL) (70-110) mg/dL Total Protein (6.3-8.2) g/dL Albumin (3.5-5.0) g/dL HSV I IgG Interpret (NEGATIVE) VZV IgG Interpret (NEGATIVE) Microbiology - Last 24 Hours (Table) 01/12/23 10:00 Blood Culture - Preliminary Blood 01/12/23 15:55 Gram Stain - Preliminary Peritoneal Fluid Body Fluid Culture - Preliminary 01/12/23 10:00 Blood Culture Gram Stain - Final Blood Blood Culture - Final Coagulase Negative Staph Assessment and Plan Plan: Assessment: 1. End-stage renal disease maintained on peritoneal dialysis. 2. Altered mental status. Concern for infection. Blood culture positive for coag-negative staph. On antibiotics. Being followed by infectious disease and neurology. No evidence of peritonitis. EEG suggestive of toxic metabolic encephalopathy. No acute changes noted on CT. On Keppra. Also on IV acyclovir. 3. Hypertension with chronic kidney disease. Stable. 4. Diabetes mellitus. 5. Volume overload. Pleural effusions noted on chest x-ray. 6. Chronic kidney disease mineral bone disease. Phosphorus 6.0 dated 0 01/13/2023. On Renvela. 7. Hypokalemia from diuretics and PD losses. Replaced. Also on potassium s upplementation. Plan: Change PD exchanges to 2.5 L every 6 hours with 2.5% dextrose solution. Check abdominal x-ray to rule out constipation. Add lactulose if needed. Hold antihypertensives for systolic blood pressure less than 120. Maintain torsemide.
--- NOTE | 2023-01-16 11:04 | XR ---
EXAMINATION TYPE: XR KUB portable DATE OF EXAM: 01/16/2023 CLINICAL DATA: 72-year-old male constipation, [facility] COMPARISON: 09/27/2013 FINDINGS: Median sternotomy wires. Patchy bibasilar opacities. Suspect a small right pleural effusion. Prominen t splenic artery calcifications are present. Left upper quadrant calcifications measuring 1.2-1.3 cm, possible left renal calculi. IVC filter. No dilated small bowel loops are seen. Extensive arterial c alcifications are present throughout. Suspect a bladder or rectal temperature probe. Peritoneal dialy sis catheter is suspected. Gassy colon. Right side of the colon mildly distended up to 7.6 cm. Air ex tends distally to the rectum. IMPRESSION: 1. Patchy bibasilar infiltrates/consolidation with small right pleural effusion. 2. Peritoneal dialysis catheter. Extensive arterial calcifications in keeping with chronic medical re nal disease. 3. Gassy colon mildly distended up to 7.6 cm. Possible generalized colonic ileus. 4. Overall nonobstructed bowel gas pattern.
[2023-01-16 11:54] LABS: Glucose,Whole Blood 246 mg/dL (70-110)
[2023-01-16] MEDS ORDERED: DIALYSIS (PERIT 2.5%) 2,500 ML 62.5 G/2,500 ML BAG INTRAPERIT SCH (12:00)
[2023-01-16] MEDS: NON FORMULARY DRUG (Exemestane [Aromasin] 25 MG Tablet) PO SCH (12:45)
[2023-01-16] MEDS: ACETAMINOPHEN TAB 325 MG TAB PO PRN (14:23)
[2023-01-16] MEDS: ACYCLOVIR SODIUM 500 MG in SODIUM CHLORIDE 0.9% 100 ML IVPB SCH (14:23)
--- NOTE | 2023-01-16 15:00 | P.PN ---
Subjective Progress Note Date: 01/16/23 Principal diagnosis: Encephalitis Patient is a 72-year-old male with a past medical history significant for end-stage renal disease on peritoneal dialysis, also history of brain tumor resection followed by an episode of encephalitis about 10 years ago history provided by the son and did have a history of shingles, admitted to the hospital with mental status status changes and the patient was noticed to be hypothermic with initial concern for possible SBP On today's evaluation and that is 01/16/2023, the patient remains to be afebrile, patient slightly more awake today per the at the bedside, patient deny any headache no chest pain shortness of breath or cough, nausea vomiting or diarrhea has been reported Objective - Vital Signs Vital signs: Vital Signs Temp 96.6 F L 01/16/23 04:00 Pulse 74 01/16/23 08:47 Resp 16 01/16/23 08:47 BP 154/79 01/16/23 08:47 Pulse Ox 96 01/16/23 09:17 FiO2 Intake & Output 01/15/23 01/16/23 01/16/23 18:59 06:59 18:59 Intake Total 208 Output Total 500 Balance 208 -500 Intake: Oral 208 Output: Urine 500 Other: Voiding Method Indwelling Catheter Indwelling Catheter CAPD CAPD # Bowel Movements 0 - Exam GENERAL DESCRIPTION: An elderly male lying in bed in no distress RESPIRATORY SYSTEM: Unlabored breathing , decreased breath sounds at bases HEART: S1 S2 regular rate and rhythm , ABDOMEN: Soft , no tenderness EXTREMITIES: No edema feet - Labs CBC & Chem 7: 01/16/23 07:37 01/16/23 07:37 Labs: Abnormal Lab Results - Last 24 Hours (Table) 01/15/23 01/15/23 01/15/23 Range/Units 08:04 16:20 20:05 RBC (4.30-5.90) m/uL Hgb (13.0-17.5) gm/dL Hct (39.0-53.0) % RDW (11.5-15.5) % Plt Count (150-450) k/uL Lymphocytes # (1.0-4.8) k/uL Sodium (137-145) mmol/L Chloride (98-107) mmol/L BUN (9-20) mg/dL Creatinine (0.66-1.25) mg/dL Glucose (74-99) mg/dL POC Glucose (mg/dL) 177 H 180 H (70-110) mg/dL Total Protein (6.3-8.2) g/dL Albumin (3.5-5.0) g/dL HSV I IgG Interpret POSITIVE A (NEGATIVE) VZV IgG Interpret POSITIVE A (NEGATIVE) 01/16/23 01/16/23 01/16/23 Range/Units 06:01 07:37 07:37 RBC 3.20 L (4.30-5.90) m/uL Hgb 9.5 L (13.0-17.5) gm/dL Hct 29.1 L (39.0-53.0) % RDW 20.2 H (11.5-15.5) % Plt Count 99 L (150-450) k/uL Lymphocytes # 0.3 L (1.0-4.8) k/uL Sodium 134 L (137-145) mmol/L Chloride 97 L (98-107) mmol/L BUN 44 H (9-20) mg/dL Creatinine 4.15 H (0.66-1.25) mg/dL Glucose 128 H (74-99) mg/dL POC Glucose (mg/dL) 150 H (70-110) mg/dL Total Protein 5.0 L (6.3-8.2) g/dL Albumin 2.8 L (3.5-5.0) g/dL HSV I IgG Interpret (NEGATIVE) VZV IgG Interpret (NEGATIVE) 01/16/23 Range/Units 11:52 RBC (4.30-5.90) m/uL Hgb (13.0-17.5) gm/dL Hct (39.0-53.0) % RDW (11.5-15.5) % Plt Count (150-450) k/uL Lymphocytes # (1.0-4.8) k/uL Sodium (137-145) mmol/L Chloride (98-107) mmol/L BUN (9-20) mg/dL Creatinine (0.66-1.25) mg/dL Glucose (74-99) mg/dL POC Glucose (mg/dL) 246 H (70-110) mg/dL Total Protein (6.3-8.2) g/dL Albumin (3.5-5.0) g/dL HSV I IgG Interpret (NEGATIVE) VZV IgG Interpret (NEGATIVE) Microbiology - Last 24 Hours (Table) 01/12/23 10:00 Blood Culture - Preliminary Blood 01/12/23 15:55 Gram Stain - Preliminary Peritoneal Fluid Body Fluid Culture - Preliminary 01/12/23 10:00 Blood Culture Gram Stain - Final Blood Blood Culture - Final Coagulase Negative Staph Assessment and Plan (1) Encephalopathy acute Current Visit: Yes Status: Acute Code(s): G93.40 - ENCEPHALOPATHY, UNSPECIFIED SNOMED Code(s): 09472537 (2) AMS (altered mental status) Current Visit: Yes Status: Acute Code(s): R41.82 - ALTERED MENTAL STATUS, UNSPECIFIED SNOMED Code(s): 117287990 Plan: 1patient presented to hospital with sepsis in this patient with hypothermia hypotension did have leukopenia concern for possible SBP as no other obvious focus of infection chest x-ray is mostly pulmonary vascular congestion, clinically doubt encephalitis initially as the patient was awake alert oriented 3 yesterday and denied any headache, the patient peritoneal fluid came back negative and now with worsening of his mentation and a previous history of encephalitis ideally would have also for LP however the patient is on Eliquis, and high risk of bleeding 2-patient did have some clinical improvement and will continue the patient on acyclovir, patient did have a positive HSV 1 and VZV serology 3-with a negative blood culture and peritoneal fluid culture will discontinue Rocephin 4-positive blood culture with staph epi likely skin contamination, repeat cultures so far negative at the bedside questions were answered Time with Patient: Less than 30
[2023-01-16 16:48] LABS: Glucose,Whole Blood 180 mg/dL (70-110)
[2023-01-16] MEDS: HYDROmorphone 0.5 MG/0.5 ML SYRINGE IVP PRN (19:24)
[2023-01-16 20:17] LABS: Glucose,Whole Blood 228 mg/dL (70-110)
[2023-01-16] MEDS: PRAVASTATIN SODIUM 40 MG TAB PO SCH (20:57)
[2023-01-16] MEDS: INSULIN DETEMIR (LEVEMIR) 100 UNIT/ML SYR SQ SCH (20:57)
--- NOTE | 2023-01-16 21:15 | P.PN ---
Subjective Progress Note Date: 01/16/23 01/16/2023: Patient's was present today. Patient has not had any seizure- like activity or staring spells since started on Keppra. Patient's is very concerned about drowsiness from Keppra. After he receives Keppra, she states that it "knocks him out" for hours. They want to stop Keppra. Overall patient's believes that he is getting better, more brighter, ate more. 01/15/2023: Patient's and patient's son were present today. They're concerned that patient is more sleepy today. Patient became somnolent after he received Keppra. Since starting Keppra, he has not had any more staring off spells. Per patient's son, he is also answering questions better, able to answer full questions better. On asking patient how he was feeling, states "pretty good". Patient denies headache. Denies dizziness his orientation has improved. Patient is laying in the bed. T 01/14/2023: Patient's daughter mentioned that she noticed yesterday that he had 3 episodes in which he suddenly started staring off in space was less responsive, would not acknowledge, each lasting for about 5 minutes. The nurse also noticed today at 7:15 AM, that he was not responding, staring off in space, some what less responsive, not answering questions for almost 10 minutes. However she noticed that after this spell was over in about 5-10 minutes, he was much more awake and alert. These stereotypical spells are concerning for possible seizures. Patient's son mentioned that at that time he was diagnosed with brain tumor, underwent resection, he also suffered from encephalitis at the same time. Family mentioned that after he was given "steroids", he just perked up completely. Family believes that patient at present is behaving exactly like h ow he was with encephalitis. Patient is currently on acyclovir. Objective - Vital Signs Vital signs: Vital Signs Temp 97.4 F L 01/16/23 12:00 Pulse 70 01/16/23 12:00 Resp 16 01/16/23 12:00 BP 140/64 01/16/23 12:00 Pulse Ox 93 L 01/16/23 12:00 FiO2 Intake & Output 01/15/23 01/16/23 01/16/23 18:59 06:59 18:59 Intake Total 208 Output Total 500 Balance 208 -500 Intake: Oral 208 Output: Urine 500 Other: Voiding Method Indwelling Catheter Indwelling Catheter Indwelling Catheter CAPD CAPD CAPD # Bowel Movements 0 - Exam Patient is laying in the bed, appears more awake, less encephalopathic. Patient denies headache or dizziness. No nausea or vomiting. Patient knows it is January 2023 and that he is in [facility] in [place]. Speech and language function are normal. Patient answering appropriately. On muscle strength testing, the box sorter is equal bilaterally. No myoclonic jerks of outstretched hands. The myoclonus has resolved. Still has left pronator drift. Patient has right facial weakness, peripheral type. Right pupil has corneal density and has no vision right eye. Patient has full visual miller with the left eye. - Labs CBC & Chem 7: 01/16/23 07:37 01/16/23 07:37 Labs: Abnormal Lab Results - Last 24 Hours (Table) 01/15/23 01/15/23 01/15/23 Range/Units 08:04 16:20 20:05 RBC (4.30-5.90) m/uL Hgb (13.0-17.5) gm/dL Hct (39.0-53.0) % RDW (11.5-15.5) % Plt Count (150-450) k/uL Lymphocytes # (1.0-4.8) k/uL Sodium (137-145) mmol/L Chloride (98-107) mmol/L BUN (9-20) mg/dL Creatinine (0.66-1.25) mg/dL Glucose (74-99) mg/dL POC Glucose (mg/dL) 177 H 180 H (70-110) mg/dL Total Protein (6.3-8.2) g/dL Albumin (3.5-5.0) g/dL HSV I IgG Interpret POSITIVE A (NEGATIVE) VZV IgG Interpret POSITIVE A (NEGATIVE) 01/16/23 01/16/23 01/16/23 Range/Units 06:01 07:37 07:37 RBC 3.20 L (4.30-5.90) m/uL Hgb 9.5 L (13.0-17.5) gm/dL Hct 29.1 L (39.0-53.0) % RDW 20.2 H (11.5-15.5) % Plt Count 99 L (150-450) k/uL Lymphocytes # 0.3 L (1.0-4.8) k/uL Sodium 134 L (137-145) mmol/L Chloride 97 L (98-107) mmol/L BUN 44 H (9-20) mg/dL Creatinine 4.15 H (0.66-1.25) mg/dL Glucose 128 H (74-99) mg/dL POC Glucose (mg/dL) 150 H (70-110) mg/dL Total Protein 5.0 L (6.3-8.2) g/dL Albumin 2.8 L (3.5-5.0) g/dL HSV I IgG Interpret (NEGATIVE) VZV IgG Interpret (NEGATIVE) 01/16/23 Range/Units 11:52 RBC (4.30-5.90) m/uL Hgb (13.0-17.5) gm/dL Hct (39.0-53.0) % RDW (11.5-15.5) % Plt Count (150-450) k/uL Lymphocytes # (1.0-4.8) k/uL Sodium (137-145) mmol/L Chloride (98-107) mmol/L BUN (9-20) mg/dL Creatinine (0.66-1.25) mg/dL Glucose (74-99) mg/dL POC Glucose (mg/dL) 246 H (70-110) mg/dL Total Protein (6.3-8.2) g/dL Albumin (3.5-5.0) g/dL HSV I IgG Interpret (NEGATIVE) VZV IgG Interpret (NEGATIVE) Microbiology - Last 24 Hours (Table) 01/12/23 10:00 Blood Culture - Preliminary Blood 01/12/23 15:55 Gram Stain - Preliminary Peritoneal Fluid Body Fluid Culture - Preliminary 01/12/23 10:00 Blood Culture Gram Stain - Final Blood Blood Culture - Final Coagulase Negative Staph Assessment and Plan Assessment: * Altered mental status, likely due to toxic metabolic encephalopathy, presumed viral encephalitis * Acute hypothermia, hypotension, resolved. Cultures so far negative. Blood cultures growing coagulase-negative staph likely from contaminant as per ID. * Abnormal routine and prolonged EEG * Patient has recurrent episodes of staring off spells in space, each lasting for about 5-10 minutes, concerning for partial seizures. No further staring spells since being on Keppra. 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 * History of cerebral meningioma probably involving right parietal falx region, as per CT findings, status post resection 10 years ago, with residual left leg weakness. Family believed patient had encephalitis at the time he was joel gnosed with brain tumor. * Hypertension * Diabetes * Coronary artery disease * Hyperlipidemia * Right eye blindness, chronic * Obesity Plan: * Patient is clinically much improved. The metabolic encephalopathy has much improved. No more myoclonic jerks noticed. No seizure-like spells. Family consistently concerned about side effect of Keppra. We will stop Keppra. If he has any clear seizure, then we will consider alternate medication, like Vimpat. * Prolonged EEG for 2.5 hours performed 01/13/2023 revealed no definitive epileptiform activity was present. This EEG consisted of triphasic waves which are not epileptiform in nature. Triphasic waves can be seen in the setting of metabolic encephalopathy. Also diffuse theta and delta range slowing was seen with greater focality in the right parietal region. These findings are not epileptiform in nature. Overall, these findings indicate moderate diffuse cerebral dysfunction with greater focal involvement of the right parietal region. An epileptiform focus involving the right parietal region cannot necessarily be excluded. In a correlation is recommended. * Routine EEG 01/12/2023 was abnormal due to background slowing of moderate degree consistent with toxic metabolic encephalopathy. Some sharply contoured waves were seen in the right parietal lesion, which did not appear clearly epileptiform. This may be related to breach rhythm from previous craniotomy. Suggest prolonged, sleep deprived EEG. * MRI of the brain cannot be performed because not able to receive clearance for Dur filter. * Repeat CT head 01/15/2023 revealed no acute interval process. Nonspecific white matter changes, likely secondary to chronic small vessel ischemic disease. Similar postsurgical changes with a right frontal lobe remote injur y. * Patient is being treated for presumed encephalitis. Acyclovir has been resumed. LP cannot be performed because patient on Eliquis. * Patient's blood culture also grew coagulase negative staph aureus. ID believes is contaminant. Continue ceftriaxone 2 g every 24 hours. * Carotid Doppler revealed 50-69% stenosis of right carotid bifurcation. There is < 50% stenosis left carotid. * Continue Eliquis 5 mg daily for previous history of atrial fibrillation. * Discussed in detail with patient's and the nursing staff. * Dr. Oglesby will resume neurology service in the morning.
[2023-01-17] MEDS: HYDROmorphone 0.5 MG/0.5 ML SYRINGE IVP PRN (04:27)
[2023-01-17] MEDS: DIALYSIS (PERIT 2.5%) 2,500 ML 62.5 G/2,500 ML BAG INTRAPERIT SCH ×4 (04:28→22:25)
[2023-01-17 06:27] LABS: Glucose,Whole Blood 187 mg/dL (70-110)
[2023-01-17] MEDS: SEVELAMER 800 MG TAB PO SCH ×3 (07:01→17:30)
[2023-01-17] MEDS: INSULIN ASPART (NovoLOG) 100 UNIT/ML VIAL SQ SCH ×4 (07:01→22:04)
--- NOTE | 2023-01-17 07:36 | P.PN ---
Subjective Progress Note Date: 01/15/23 HISTORY OF PRESENT ILLNESS: this is a 72-year-old male with a previous medical history significant for hy pertension and hypertensive cardiovascular disease with left ventricular hypertrophy, hyperlipidemia, diabetes mellitus type 2, with diabetic polyneuropathy, history of coronary artery disease status post coronary artery bypass graft x3 followed by stent, history of atrial fibrillation status post a blation on long-term eliquis, history of meningioma status post resection back in April 2013 with left-sided weakness, end-stage renal disease on peritoneal dialysis, history of anemia of chronic kidney disease, history of secondary hyperparathyroidism,history of breast cancer on the right side status post right mastectomy followed by chemotherapy, patient was recently evaluated at the emergency department at [facility] on 01/04/2023 after he was found to have a right-sided Arguelles's palsy associated with a recent zoster and top located, at that time the patient was found to be somewhat hyponatremic, he was started on Famvir 500 mg orally twice every day for 7 days, and he was sent to my office I saw the patient in the office last Thursday and he was doing fine, I added a small dose of dexamethasone 0.75 mg orally twice every day for 5 days, patient was doing fine up until today in the morning when his was checking on him to do his peritoneal dialysis and he was barely responsive, therefore she contacted the EMS and was brought into the ER for evaluation patient was having a minimal leukocytosis, and he was also found to have hypothermia, he had a warming blanket, and the because of the prior presentation to rule out any varicella-zoster encephalitis he was started immediately on Acyclovir IV piggyback and infectious disease consultation was obtained along with nephrology consultation for peritoneal dialysis 01/13: Patient has been seen by infectious disease concerning for possible spontaneous bacterial peritonitis as no other source of infection was noted. Doubt encephalitis. Patient is continued on Rocephin and acyclovir was discontinued but because patient's mental sstatus has worsened, Dr. Ruiz is planning to restart antiviral. Peritoneal fluid culture is in progress. Blood culture is status post received. Patient has been seen and followed by neur ology for toxic metabolic encephalopathy. The patient had a repeat CAT scan of the brain which revealed no acute hemorrhage or mass effect. There is degenerative and nonspecific white matter changes most typical of remote ischemia. Carotid ultrasound revealed 50-69% stenosis of the right carotid b ifurcation. Less than 50% stenosis of the left carotid bifurcation. EEG was abnormal Be seen with toxic metabolic encephalopathy or related to diffuse structural brain abnormality. Rare sharply controlled waves over the right parietal region did not clearly appear epileptiform but may suggest underlying cortical irritability. Clinical correlation with prolonged EEG recommended which is being done today. MRI of the brain has also been ordered by neurology. Patient has also been seen by nephrology for end-stage renal disease. Patient is continued on PD exchanges although solutions have been modified. Nephrology is changed furosemide to 40 mg once daily and discontinued Zaroxolyn. Telemetry is sinus rhythm with first-degree block. Temperature is up to 97.5. Heart rate is in the 70s and blood pressure 102/62, pulse ox 95% on room air. Patient has used CPAP during the night. Repeat blood work has been ordered for tomorrow. 01/14: Patient is seen and followed by nephrology and continued on CAPD, Renvela added. A prolonged EEG was performed yesterday as ordered by neurology. Report cannot exclude epileptiform focus in the right parietal region. Patient has been started on IV Keppra. MRI of the brain was also ordered but due to patient having [place] filter this needs to be cleared. Acyclovir has been resumed by infectious disease and patient is continued on ceftriaxone. Temperature 97.4, heart rate in the 60s and 70s, blood pressure 130/67, pulse ox 96% on 2 L nasal cannula. Repeat blood work reveals WBC of 4, hemoglobin 10.7, sodium 132, potassium 3.4, chloride 95, CO2 23, BUN 43 creatinine 4.22. Magnesium 2.2 and liver function tests normal. Consult PT and OT. 01/15: Patient is laying down in bed appears to be tired, not conversing very well, his was at the bedside, patient is not eating as much today, he complains of increased swelling in both lower extremity especially the left lower extremity, will obtain venous Doppler to rule out any acute abnormalities, we will continue to monitor the patient very closely, we will add Nepro for protein supplementation, patient continues to get his peritoneal dialysis, patient is debilitated, he continues to be on acyclovir along with Keppra as per neurology consultation due to possible seizure disorder. REVIEW OF SYSTEMS: Constitutional: No documented fever, no chills, no night sweats. No weight change. positive for weakness, fatigue or lethargy. No daytime sleepiness. HEENT: No headache. right eye blind or double vision, no loss of vision. No loss of Hearing, no ringing in the ears, no dizziness. No nasal drainage or congestion. No epistaxis. No sore throat. Lungs: positive for shortness of breath, no cough, no sputum production. No wheezing. Reports dyspnea with activity. Cardiovascular: No chest pain, reported lower extremity edema. No palpitations. Reported paroxysmal nocturnal dyspnea. Reports orthopnea. No lightheadedness or dizziness. No syncopal episodes. Abdominal: Reports no abdominal pain. positive for nausea, vomiting. Reports occasional diarrhea. No constipation. No bloody or tarry stools reports loss of appetite. Genitourinary: No dysuria, increased frequency, urgency. No urinary retention. Musculoskeletal: No myalgias. positive for chronic left sided weakness, positive for gait dysfunction, no frequent falls. positive for back pain. positive for neck pain. Integumentary: right mastectomy incision is clean with LUISITO in place no lesions. No rash or pruritus. No unusual bruising. No change in hair or nails. Neurologic: No aphasia. No facial droop. Noted change in mentation. No head injury. No headache, positive for left sided weakness and left foot drop. Psychiatric: positive for depression. No anxiety. No mood swings. Endocrine: No abnormal blood sugars. No weight change. PHYSICAL EXAMINATION: General: this is a 72-year-old male who is lying down in bed in bed appears to be in no respiratory distress at rest. HEENT: Head is atraumatic, normocephalic, pupils were equal round reactive to light and recommendation, extraocular muscle movement were intact, sclera nonicteric, conjunctivae were pale, mucous membranes of the mouth are somewhat dry. Neck: Supple, no JVP, normal carotid upstroke bilaterally, no lymphadenopathy. Chest: Decreased breath sounds at the bases few rhonchi, no expiratory wheezes, no chest wall tenderness, no intercostal retractions. Heart: First heart sound is normal, second heart sounds normal, irregularly irregular, there is systolic ejection murmur 2/6 located in the left sternal border. Abdomen: Soft, nontender, nondistended, positive bowel sounds, positive for PD catheter Extremities: There is +2 edema to the bilateral lower extremities left greater than right no calf tenderness DP +2 bilaterally. Neurologic examination: Patient is awake alert and oriented X3 , cranial nerves II-12 appear grossly intact, there is left-sided weakness with left foot drop. ASSESSMENT AND PLAN: 1. Metabolic encephalopathy multifactorial rule out varicella-zoster encephalitis or HSV encephalitis, cannot rule out seizure. continue the patient on Acyclovir 500 mg IV piggyback every 24 hours, infectious disease consultation appreciated, blood cultures, urine culture, follow-up with the patient. Patient has been started on Keppra IV per neurology. 2. 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 Continue treatment with acyclovir for now 3. Right-sided pleural effusion with compressive atelectasis rule out pneumonia. Continue ceftriaxone 2 g IV piggyback every 24 hours. 4. leukocytosis likely related to recent dexamethasone use. Rule out sepsis. 6. History of CAD post CABG as well as PCI and stent placement. Continue patient on metoprolol XL 25 mg once every day, pravastatin 40 mg at bedtime. 7. History of paroxysmal atrial fibrillation. Continue patient on Eliquis 5 mg orally twice every day, continue amiodarone 100 mg orally once every day, metoprolol XL 25 mg orally once every day. 8. Hypertension and hypertensive cardiovascular disease. Continue patient on amlodipine 5 mg once every day, continue with metoprolol ER 25 mg orally once every day, monitor the patient blood pressure very closely. 9. Hyperlipidemia. Continue patient on pravastatin 40 mg at bedtime, monitor lipid panel, keep LDL 55-70. 10. Chronic kidney disease stage IV, approaching ESRD, we will arrange for Perma catheter placement and HD to be started 11. History of enlarged prostate. Continue Flomax 0.4 mg once every day, monitor for urinary retention. 12. Diabetes mellitus type 2. Continue Lantus 30 units at bedtime, monitor the patient blood glucose level and at bedtime with NovoLog scale 13. Diabetic polyneuropathy. Stable. 14. History of DVT status post IVC filter placement, continue with Eliquis 5 mg orally twice every day. 15. Chronic gout. Continue patient on allopurinol 100 mg orally once every day. 16. History of meningioma with left-sided weakness. Physical therapy evaluation. 17. Protein calorie meditation. Continue patient on Nepro twice every day. 18. Possible seizure disorder. Neurology is following. patient was started on Keppra by neurology 19. Overall prognosis is guarded Objective - Vital Signs Vital signs: Vital Signs Temp 96.6 F L 01/16/23 04:00 Pulse 60 01/16/23 04:00 Resp 14 01/16/23 04:00 BP 137/70 01/16/23 04:00 Pulse Ox 95 01/16/23 04:00 FiO2 Intake & Output 01/15/23 01/16/23 01/16/23 18:59 06:59 18:59 Intake Total 208 Output Total 500 Balance 208 -500 Intake: Oral 208 Output: Urine 500 Other: Voiding Method Indwelling Catheter Indwelling Catheter CAPD CAPD # Bowel Movements 0 - Labs CBC & Chem 7: 01/16/23 07:37 01/16/23 07:37 Labs: Abnormal Lab Results - Last 24 Hours (Table) 01/15/23 01/15/23 01/15/23 Range/Units 08:04 11:37 16:20 POC Glucose (mg/dL) 197 H 177 H (70-110) mg/dL HSV I IgG Interpret POSITIVE A (NEGATIVE) VZV IgG Interpret POSITIVE A (NEGATIVE) 01/15/23 01/16/23 Range/Units 20:05 06:01 POC Glucose (mg/dL) 180 H 150 H (70-110) mg/dL HSV I IgG Interpret (NEGATIVE) VZV IgG Interpret (NEGATIVE) Microbiology - Last 24 Hours (Table) 01/12/23 10:00 Blood Culture Gram Stain - Final Blood Blood Culture - Final Coagulase Negative Staph 01/12/23 15:55 Gram Stain - Preliminary Peritoneal Fluid Body Fluid Culture - Preliminary 01/12/23 10:00 Blood Culture - Preliminary Blood
--- NOTE | 2023-01-17 07:40 | P.PN ---
Subjective Progress Note Date: 01/16/23 HISTORY OF PRESENT ILLNESS: this is a 72-year-old male with a previous medical history significant for hy pertension and hypertensive cardiovascular disease with left ventricular hypertrophy, hyperlipidemia, diabetes mellitus type 2, with diabetic polyneuropathy, history of coronary artery disease status post coronary artery bypass graft x3 followed by stent, history of atrial fibrillation status post a blation on long-term eliquis, history of meningioma status post resection back in April 2013 with left-sided weakness, end-stage renal disease on peritoneal dialysis, history of anemia of chronic kidney disease, history of secondary hyperparathyroidism,history of breast cancer on the right side status post right mastectomy followed by chemotherapy, patient was recently evaluated at the emergency department at [facility] on 01/04/2023 after he was found to have a right-sided Arguelles's palsy associated with a recent zoster and top located, at that time the patient was found to be somewhat hyponatremic, he was started on Famvir 500 mg orally twice every day for 7 days, and he was sent to my office I saw the patient in the office last Thursday and he was doing fine, I added a small dose of dexamethasone 0.75 mg orally twice every day for 5 days, patient was doing fine up until today in the morning when his was checking on him to do his peritoneal dialysis and he was barely responsive, therefore she contacted the EMS and was brought into the ER for evaluation patient was having a minimal leukocytosis, and he was also found to have hypothermia, he had a warming blanket, and the because of the prior presentation to rule out any varicella-zoster encephalitis he was started immediately on Acyclovir IV piggyback and infectious disease consultation was obtained along with nephrology consultation for peritoneal dialysis 01/13: Patient has been seen by infectious disease concerning for possible spontaneous bacterial peritonitis as no other source of infection was noted. Doubt encephalitis. Patient is continued on Rocephin and acyclovir was discontinued but because patient's mental sstatus has worsened, Dr. Ruiz is planning to restart antiviral. Peritoneal fluid culture is in progress. Blood culture is status post received. Patient has been seen and followed by neur ology for toxic metabolic encephalopathy. The patient had a repeat CAT scan of the brain which revealed no acute hemorrhage or mass effect. There is degenerative and nonspecific white matter changes most typical of remote ischemia. Carotid ultrasound revealed 50-69% stenosis of the right carotid b ifurcation. Less than 50% stenosis of the left carotid bifurcation. EEG was abnormal Be seen with toxic metabolic encephalopathy or related to diffuse structural brain abnormality. Rare sharply controlled waves over the right parietal region did not clearly appear epileptiform but may suggest underlying cortical irritability. Clinical correlation with prolonged EEG recommended which is being done today. MRI of the brain has also been ordered by neurology. Patient has also been seen by nephrology for end-stage renal disease. Patient is continued on PD exchanges although solutions have been modified. Nephrology is changed furosemide to 40 mg once daily and discontinued Zaroxolyn. Telemetry is sinus rhythm with first-degree block. Temperature is up to 97.5. Heart rate is in the 70s and blood pressure 102/62, pulse ox 95% on room air. Patient has used CPAP during the night. Repeat blood work has been ordered for tomorrow. 01/14: Patient is seen and followed by nephrology and continued on CAPD, Renvela added. A prolonged EEG was performed yesterday as ordered by neurology. Report cannot exclude epileptiform focus in the right parietal region. Patient has been started on IV Keppra. MRI of the brain was also ordered but due to patient having [place] filter this needs to be cleared. Acyclovir has been resumed by infectious disease and patient is continued on ceftriaxone. Temperature 97.4, heart rate in the 60s and 70s, blood pressure 130/67, pulse ox 96% on 2 L nasal cannula. Repeat blood work reveals WBC of 4, hemoglobin 10.7, sodium 132, potassium 3.4, chloride 95, CO2 23, BUN 43 creatinine 4.22. Magnesium 2.2 and liver function tests normal. Consult PT and OT. 01/15: Patient is laying down in bed appears to be tired, not conversing very well, his was at the bedside, patient is not eating as much today, he complains of increased swelling in both lower extremity especially the left lower extremity, will obtain venous Doppler to rule out any acute abnormalities, we will continue to monitor the patient very closely, we will add Nepro for protein supplementation, patient continues to get his peritoneal dialysis, patient is debilitated, he continues to be on acyclovir along with Keppra as per neurology consultation due to possible seizure disorder. 01/16: Patient family requested that the patient come off the Keppra we'll discuss with neurology as the patient is getting more drowsy with the Keppra this point in time, we'll continue to monitor the patient very closely, presumably we are treated the patient with viral encephalitis, he has been responding to a psychiatric unit 500 mg IV piggyback every 24 hours, we will continue with Nepro twice every day, continue with physical therapy, we will check ultrasound of the left lower extremity to rule out any DVT, patient's prognosis continues to be guarded this point in time. REVIEW OF SYSTEMS: Constitutional: No documented fever, no chills, no night sweats. No weight change. positive for weakness, fatigue or lethargy. No daytime sleepiness. HEENT: No headache. right eye blind or double vision, no loss of vision. No loss of Hearing, no ringing in the ears, no dizziness. No nasal drainage or congestion. No epistaxis. No sore throat. Lungs: positive for shortness of breath, no cough, no sputum production. No wheezing. Reports dyspnea with activity. Cardiovascular: No chest pain, reported lower extremity edema. No palpitations. Reported paroxysmal nocturnal dyspnea. Reports orthopnea. No lightheadedness or dizziness. No syncopal episodes. Abdominal: Reports no abdominal pain. positive for nausea, vomiting. Reports occasional diarrhea. No constipation. No bloody or tarry stools reports loss of appetite. Genitourinary: No dysuria, increased frequency, urgency. No urinary retention. Musculoskeletal: No myalgias. positive for chronic left sided weakness, positive for gait dysfunction, no frequent falls. positive for back pain. positive for neck pain. Integumentary: right mastectomy incision is clean with LUISITO in place no lesions. No rash or pruritus. No unusual bruising. No change in hair or nails. Neurologic: No aphasia. No facial droop. Noted change in mentation. No head injury. No headache, positive for left sided weakness and left foot drop. Psychiatric: positive for depression. No anxiety. No mood swings. Endocrine: No abnormal blood sugars. No weight change. PHYSICAL EXAMINATION: General: this is a 72-year-old male who is lying down in bed in bed appears to be in no respiratory distress at rest. HEENT: Head is atraumatic, normocephalic, pupils were equal round reactive to light and recommendation, extraocular muscle movement were intact, sclera nonicteric, conjunctivae were pale, mucous membranes of the mouth are somewhat dry. Neck: Supple, no JVP, normal carotid upstroke bilaterally, no lymphadenopathy. Chest: Decreased breath sounds at the bases few rhonchi, no expiratory wheezes, no chest wall tenderness, no intercostal retractions. Heart: First heart sound is normal, second heart sounds normal, irregularly irre gular, there is systolic ejection murmur 2/6 located in the left sternal border. Abdomen: Soft, nontender, nondistended, positive bowel sounds, positive for PD catheter Extremities: There is +2 edema to the bilateral lower extremities left greater than right no calf tenderness DP +2 bilaterally. Neurologic examination: Patient is awake alert and oriented X3 , cranial nerves II-12 appear grossly intact, there is left-sided weakness with left foot drop. ASSESSMENT AND PLAN: 1. Metabolic encephalopathy multifactorial rule out varicella-zoster encephalitis or HSV encephalitis, cannot rule out seizure. continue the patient on Acyclovir 500 mg IV piggyback every 24 hours, infectious disease consultation appreciated, blood cultures, urine culture, follow-up with the patient. Patient has been started on Keppra IV per neurology. 2. 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 Continue treatment with acyclovir for now 3. Right-sided pleural effusion with compressive atelectasis rule out pneumonia. Continue ceftriaxone 2 g IV piggyback every 24 hours. 4. leukocytosis likely related to recent dexamethasone use. Rule out sepsis. 6. History of CAD post CABG as well as PCI and stent placement. Continue patient on metoprolol XL 25 mg once every day, pravastatin 40 mg at bedtime. 7. History of paroxysmal atrial fibrillation. Continue patient on Eliquis 5 mg orally twice every day, continue amiodarone 100 mg orally once every day, metoprolol XL 25 mg orally once every day. 8. Hypertension and hypertensive cardiovascular disease. Continue patient on amlodipine 5 mg once every day, continue with metoprolol ER 25 mg orally once every day, monitor the patient blood pressure very closely. 9. Hyperlipidemia. Continue patient on pravastatin 40 mg at bedtime, monitor lipid panel, keep LDL 55-70. 10. Chronic kidney disease stage IV, approaching ESRD, we will arrange for Perma catheter placement and HD to be started 11. History of enlarged prostate. Continue Flomax 0.4 mg once every day, monitor for urinary retention. 12. Diabetes mellitus type 2. Continue Lantus 30 units at bedtime, monitor the patient blood glucose level and at bedtime with NovoLog scale 13. Diabetic polyneuropathy. Stable. 14. History of DVT status post IVC filter placement, continue with Eliquis 5 mg orally twice every day. 15. Chronic gout. Continue patient on allopurinol 100 mg orally once every day. 16. History of meningioma with left-sided weakness. Physical therapy evaluation. 17. Protein calorie meditation. Continue patient on Nepro twice every day. 18. Possible seizure disorder. Neurology is following. patient was taken off Keppra this time. 19. Left lower extremity edema we will check venous doppler of both lower extremities 20. Guarded Prognosis Objective - Vital Signs Vital signs: Vital Signs Temp 98.1 F 01/17/23 04:35 Pulse 65 01/17/23 04:35 Resp 18 01/17/23 04:35 BP 134/66 01/17/23 04:35 Pulse Ox 93 L 01/17/23 04:35 FiO2 Intake & Output 01/16/23 01/17/23 01/17/23 18:59 06:59 18:59 Output Total 275 Balance -275 Output: Urine 275 Other: Voiding Method Indwelling Catheter Indwelling Catheter CAPD CAPD # Bowel Movements 1 - Labs CBC & Chem 7: 01/16/23 07:37 01/16/23 07:37 Labs: Abnormal Lab Results - Last 24 Hours (Table) 01/16/23 01/16/23 01/16/23 Range/Units 07:37 07:37 11:52 RBC 3.20 L (4.30-5.90) m/uL Hgb 9.5 L (13.0-17.5) gm/dL Hct 29.1 L (39.0-53.0) % RDW 20.2 H (11.5-15.5) % Plt Count 99 L (150-450) k/uL Lymphocytes # 0.3 L (1.0-4.8) k/uL Sodium 134 L (137-145) mmol/L Chloride 97 L (98-107) mmol/L BUN 44 H (9-20) mg/dL Creatinine 4.15 H (0.66-1.25) mg/dL Glucose 128 H (74-99) mg/dL POC Glucose (mg/dL) 246 H (70-110) mg/dL Total Protein 5.0 L (6.3-8.2) g/dL Albumin 2.8 L (3.5-5.0) g/dL 01/16/23 01/16/23 01/17/23 Range/Units 16:46 20:15 06:25 RBC (4.30-5.90) m/uL Hgb (13.0-17.5) gm/dL Hct (39.0-53.0) % RDW (11.5-15.5) % Plt Count (150-450) k/uL Lymphocytes # (1.0-4.8) k/uL Sodium (137-145) mmol/L Chloride (98-107) mmol/L BUN (9-20) mg/dL Creatinine (0.66-1.25) mg/dL Glucose (74-99) mg/dL POC Glucose (mg/dL) 180 H 228 H 187 H (70-110) mg/dL Total Protein (6.3-8.2) g/dL Albumin (3.5-5.0) g/dL Microbiology - Last 24 Hours (Table) 01/12/23 10:00 Blood Culture - Preliminary Blood 01/12/23 15:55 Gram Stain - Preliminary Peritoneal Fluid Body Fluid Culture - Preliminary
--- NOTE | 2023-01-17 09:22 | US ---
EXAMINATION TYPE: US venous doppler duplex LE BI DATE OF EXAM: 01/17/2023 9:13 AM COMPARISON: NONE CLINICAL INDICATION: Male, 72 years old with history of Pain and swelling; No redness. Patient on bl ood thinners. Patient paralyzed left leg from brain tumor. SIDE PERFORMED: Bilateral TECHNIQUE: The lower extremity deep venous system is examined utilizing real time linear array sonog antonia with graded compression, doppler sonography and color-flow sonography. VESSELS IMAGED: Common Femoral Vein Deep Femoral Vein Greater Saphenous Vein * Femoral Vein Popliteal Vein Small Saphenous Vein * Proximal Calf Veins (* superficial vessels) Extremely limited exam due to arterial shadowing obscuring vein Right Leg: Negative for acute DVT. Unable to accurately visualize distal femoral vein. Left Leg: Negative for acute DVT. Unable to accurately visualize distal femoral vein. Possible rev ersed flow of GSV. Subcutaneous edema within the legs. IMPRESSION: Grayscale, color doppler, spectral doppler imaging performed of the deep veins of the lo wer extremities. There is normal flow, compressibility, vascular waveforms.
[2023-01-17] MEDS: TORSEMIDE 20 MG TAB PO SCH (09:50)
[2023-01-17] MEDS: POTASSIUM CHLORIDE ER 20 MEQ TAB.ER PO SCH (09:51)
[2023-01-17] MEDS: allopurinoL 100 MG TAB PO SCH (09:51)
[2023-01-17] MEDS: amLODIPine 5 MG TAB PO SCH ×2 (09:51→22:04)
[2023-01-17] MEDS: METOPROLOL SUCCINATE (ER) 25 MG TAB.ER.24H PO SCH (09:51)
[2023-01-17] MEDS: NON FORMULARY DRUG (Exemestane [Aromasin] 25 MG Tablet) PO SCH (09:51)
[2023-01-17] MEDS: APIXABAN 2.5 MG TABLET PO SCH (09:51)
[2023-01-17] MEDS: hydrALAZINE HCL 50 MG TAB PO SCH ×2 (09:51→22:04)
[2023-01-17] MEDS: AMIODARONE 200 MG TAB PO SCH (09:51)
[2023-01-17] MEDS: TAMSULOSIN 0.4 MG CAP.ER.24H PO SCH ×2 (09:51→22:04)
--- NOTE | 2023-01-17 11:15 | P.PN ---
Subjective Progress Note Date: 01/17/23 Principal diagnosis: Encephalitis Patient is a 72-year-old male with a past medical history significant for end-stage renal disease on peritoneal dialysis, also history of brain tumor resection followed by an episode of encephalitis about 10 years ago history provided by the son and did have a history of shingles, admitted to the hospital with mental status status changes and the patient was noticed to be hypothermic with initial concern for possible SBP On today's evaluation and that is 01/17/2023, the patient continues to be afebrile, patient is more awake today per the , the patient denies any headache , the patient denies having chest pain shortness of breath or cough, nausea vomiting or diarrhea has been reported Objective - Vital Signs Vital signs: Vital Signs Temp 98.1 F 01/17/23 04:35 Pulse 65 01/17/23 04:35 Resp 18 01/17/23 04:35 BP 134/66 01/17/23 04:35 Pulse Ox 93 L 01/17/23 04:35 FiO2 Intake & Output 01/16/23 01/17/23 01/17/23 18:59 06:59 18:59 Output Total 275 Balance -275 Output: Urine 275 Other: Voiding Method Indwelling Catheter Indwelling Catheter CAPD CAPD # Bowel Movements 1 - Exam GENERAL DESCRIPTION: An elderly male lying in bed in no distress RESPIRATORY SYSTEM: Unlabored breathing , decreased breath sounds at bases HEART: S1 S2 regular rate and rhythm , ABDOMEN: Soft , no tenderness EXTREMITIES: No edema feet - Labs CBC & Chem 7: 01/16/23 07:37 01/16/23 07:37 Labs: Abnormal Lab Results - Last 24 Hours (Table) 01/16/23 01/16/23 01/16/23 Range/Units 11:52 16:46 20:15 POC Glucose (mg/dL) 246 H 180 H 228 H (70-110) mg/dL 01/17/23 Range/Units 06:25 POC Glucose (mg/dL) 187 H (70-110) mg/dL Microbiology - Last 24 Hours (Table) 01/12/23 10:00 Blood Culture - Preliminary Blood 01/12/23 15:55 Gram Stain - Preliminary Peritoneal Fluid Body Fluid Culture - Preliminary Assessment and Plan (1) Encephalopathy acute Current Visit: Yes Status: Acute Code(s): G93.40 - ENCEPHALOPATHY, UNSPECIFI ED SNOMED Code(s): 04193065 (2) AMS (altered mental status) Current Visit: Yes Status: Acute Code(s): R41.82 - ALTERED MENTAL STATUS, UNSPECIFIED SNOMED Code(s): 061932625 Plan: 1patient presented to hospital with sepsis in this patient with hypothermia hypotension did have leukopenia concern for possible SBP as no other obvious focus of infection chest x-ray is mostly pulmonary vascular congestion, clinically doubt encephalitis initially as the patient was awake alert oriented 3 yesterday and denied any headache, the patient peritoneal fluid came back negative and now with worsening of his mentation and a previous history of encephalitis ideally would have also for LP however the patient is on Eliquis, and high risk of bleeding 2--with a negative blood culture and peritoneal fluid culture , Rocephin was d iscontinued 3-positive blood culture with staph epi likely skin contamination, repeat cultures so far negative 4-patient did have some clinical improvement and will continue the patient on acyclovir, patient did have a positive HSV 1 and VZV serology Time with Patient: Less than 30
--- NOTE | 2023-01-17 11:40 | P.PN ---
Subjective Patient is seen for follow-up for end-stage renal disease. Maintained on peritoneal dialysis. No issues with dialysis. Patient did have a bowel m ovement this morning. No significant complaints today. Tolerating oral intake. is present at bedside. Objective - Vital Signs Vital signs: Vital Signs Temp 97.6 F 01/17/23 08:00 Pulse 74 01/17/23 08:00 Resp 18 01/17/23 08:00 BP 140/67 01/17/23 08:00 Pulse Ox 94 L 01/17/23 08:00 FiO2 Intake & Output 01/16/23 01/17/23 01/17/23 18:59 06:59 18:59 Output Total 275 Balance -275 Output: Urine 275 Other: Voiding Method Indwelling Catheter Indwelling Catheter CAPD CAPD # Bowel Movements 1 - Exam Patient is awake, comfortable, no acute distress Examination of the heart S1 and S2 Examination of the lungs bilateral breath sounds are heard Abdomen is soft nontender Examination lower extremity shows no significant edema - Labs CBC & Chem 7: 01/16/23 07:37 01/16/23 07:37 Labs: Abnormal Lab Results - Last 24 Hours (Table) 01/16/23 01/16/23 01/16/23 Range/Units 11:52 16:46 20:15 POC Glucose (mg/dL) 246 H 180 H 228 H (70-110) mg/dL 01/17/23 Range/Units 06:25 POC Glucose (mg/dL) 187 H (70-110) mg/dL Microbiology - Last 24 Hours (Table) 01/12/23 15:55 Gram Stain - Final Peritoneal Fluid Body Fluid Culture - Final 01/15/23 08:10 Blood Culture - Preliminary Blood 01/12/23 10:00 Blood Culture - Preliminary Blood Assessment and Plan Assessment: 1. End-stage renal disease maintained on peritoneal dialysis. 2. Altered mental status. Concern for infection. Blood culture positive for coag-negative staph. On antibiotics. Being followed by infectious disease and neurology. No evidence of peritonitis. EEG suggestive of toxic metabolic encephalopathy. No acute changes noted on CT. On Keppra. Also on IV acyclovir. 3. Hypertension with chronic kidney disease. Stable. 4. Diabetes mellitus. 5. Volume overload. Pleural effusions noted on chest x-ray. 6. Chronic kidney disease mineral bone disease. Phosphorus 6.0 dated 01/13/2023. On Renvela. 7. Hypokalemia from diuretics and PD losses. Replaced. Also on potassium supplementation Plan: Continue current PD exchanges of 2.5% solution every 6 hours Encouraged increased oral intake
[2023-01-17 11:53] LABS: Glucose,Whole Blood 232 mg/dL (70-110)
--- NOTE | 2023-01-17 12:25 | P.PN ---
Subjective Progress Note Date: 01/17/23 The patient is a 72-year-old male who is seen in neurologic follow-up on January 17, 2023, via teleneurology. The patient's chart has been reviewed. The patient reportedly has a history of end-stage renal disease on peritoneal dialysis. He came into the hospital because of confusion. Lumbar puncture has not been done he cause of anticoagulation. MRI of the brain has not been done. EEG was performed and there is concern for findings of toxic metabolic encephalopathy as well as potential epileptiform discharges. The patient is currently being treated for possible herpes encephalitis. Because of the abnormal EEG, the patient was started on Keppra area did it seems that Keppra was causing the patient to be excessively sedated and so this medication was stopped yesterday per family request. Per nursing and the patient's who is present at the bedside at the time of the evaluation, the patient has had no further staring episodes. The patient is reportedly more awake and alert today. He is speaking in complete sentences. He is oriented 3. According to the patient's , the patient was not speaking in sentences yesterday he only would say one word at a time. Objective - Vital Signs Vital signs: Vital Signs Temp 97.6 F 01/17/23 08:00 Pulse 74 01/17/23 08:00 Resp 18 01/17/23 08:00 BP 140/67 01/17/23 08:00 Pulse Ox 94 L 01/17/23 08:00 FiO2 Intake & Output 01/16/23 01/17/23 01/17/23 18:59 06:59 18:59 Output Total 275 Balance -275 Output: Urine 275 Other: Voiding Method Indwelling Catheter Indwelling Catheter CAPD CAPD # Bowel Movements 1 - Exam Gen.: The patient is reclining in the bed. He initially is wearing his CPAP machine. His is able to take this off. The patient is in no distress HEENT: Head is atraumatic, normocephalic. Fundus not visualized. There is no scleral icterus. Mucous membranes are moist. Neurological examination Mental status: The patient is awake, alert and oriented 3. He is speaking in complete sentences. His speech is clear. There is no dysarthria or aphasia. The patient is able to follow commands without difficulty. Coordination: Finger to nose and rapid alternating movements are intact. Motor: There is movement of all 4 extremities. - Labs CBC & Chem 7: 01/16/23 07:37 01/16/23 07:37 Labs: Abnormal Lab Results - Last 24 Hours (Table) 01/16/23 01/16/23 01/17/23 Range/Units 16:46 20:15 06:25 POC Glucose (mg/dL) 180 H 228 H 187 H (70-110) mg/dL 01/17/23 Range/Units 11:51 POC Glucose (mg/dL) 232 H (70-110) mg/dL Microbiology - Last 24 Hours (Table) 01/12/23 15:55 Gram Stain - Final Peritoneal Fluid Body Fluid Culture - Final 01/15/23 08:10 Blood Culture - Preliminary Blood 01/12/23 10:00 Blood Culture - Preliminary Blood Assessment and Plan Assessment: * Altered mental status, likely due to toxic metabolic encephalopathy, presumed viral encephalitis-Mental status has improved since discontinuation of Keppra, as well as initiation of treatment for viral encephalitis * Acute hypothermia, hypotension, resolved. Cultures so far negative. Blood cultures growing coagulase-negative staph likely from contaminant as per ID. * Abnormal routine and prolonged EEG * Patient has recurrent episodes of staring off spells in space, each lasting for about 5-10 minutes, concerning for partial seizures. No further staring spells since being on Keppra. 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 * History of cerebral meningioma probably involving right parietal falx region, as per CT findings, status post resection 10 years ago, with residual left leg weakness. Family believed patient had encephalitis at the time he was diagnosed with brain tumor. * Hypertension * Diabetes * Coronary artery disease * Hyperlipidemia * Right eye blindness, chronic * Obesity Plan: 1. Continue seizure precautions 2. Continue treatment for assumed viral encephalitis 3. Will continue to hold Keppra at this time. If seizures are observed, the patient will be started on Vimpat Time with Patient: Less than 30 (Spent 25 minutes carrying for this patient today including, obtaining history, examining the patient, reviewing labs, chart documentation and creating this note)
[2023-01-17] MEDS: ACETAMINOPHEN TAB 325 MG TAB PO PRN (12:32)
--- NOTE | 2023-01-17 13:55 | P.PN ---
Subjective Progress Note Date: 01/17/23 Patient is a 72-year-old male with a past medical history significant for end-stage renal disease on peritoneal dialysis, also history of brain tumor resection followed by an episode of encephalitis about 10 years ago history provided by the son and did have a history of shingles, admitted to the hospital with mental status status changes and the patient was noticed to be hypothermic 5/6. Patient seen and examined. at the bedside. According to her patient has been doing better compared to yesterday, patient much more alert and appropriate and answering questions appropriately REVIEW OF SYSTEMS: CONSTITUTIONAL: No fever, no malaise,. CARDIOVASCULAR: No chest pain, no palpitations, no syncope. PULMONARY: No shortness of breath, no cough, GASTROINTESTINAL: No diarrhea, no nausea, no vomiting, no abdominal pain. NEUROLOGICAL: No headaches, no weakness, PHYSICAL EXAMINATION: GENERAL: The patient is alert and oriented x3, not in any acute distress. Well developed, well nourished. HEENT: Pupils are round and equally reacting to light. EOMI. No scleral icterus. No conjunctival pallor. Normocephalic, atraumatic. No pharyngeal erythema. No thyromegaly. Right facial droop and droopiness of right eyelid noticeable CARDIOVASCULAR: S1 and S2 present. No murmurs, rubs, or gallops. PULMONARY: Chest is clear to auscultation, no wheezing or crackles. ABDOMEN: Soft, nontender, nondistended, normoactive bowel sounds. No palpable organomegaly. MUSCULOSKELETAL: No joint swelling or deformity. EXTREMITIES: 1+ pitting edema of lower extremities bilaterally NEUROLOGICAL: Has baseline left-sided weakness SKIN: No rashes. Assessment and plan Metabolic encephalopathy multifactorial rule out varicella-zoster encephalitis or HSV encephalitis, cannot rule out seizure. 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 Right-sided pleural effusion with compressive atelectasis rule out pneumonia. leukocytosis History of CAD post CABG as well as PCI and stent placement. History of paroxysmal atrial fibrillation. Hypertension and hypertensive cardiovascular disease. Hyperlipidemia. Chronic kidney disease stage IV, approaching ESRD, we will arrange for Perma catheter placement and HD to be started History of enlarged prostate. Diabetes mellitus type 2. Diabetic polyneuropathy. History of DVT status post IVC filter placement Chronic gout. History of meningioma with left-sided weakness. Protein calorie meditation. Possible seizure disorder Left lower extremity edema Plan; Monitor vital signs Monitor CBC Monitor CMP continue the patient on Acyclovir 500 mg IV piggyback every 24 hours, Continue patient on Eliquis 5 mg orally twice every day, continue amiodarone 100 mg orally once every day, metoprolol XL 25 mg orally once every day. Continue Lantus 30 units at bedtime, monitor the patient blood glucose level and at bedtime with NovoLog scale Continue peritoneal dialysis per nephrology Follow-up in [place] recs Follow-up on neurology recommendations, Naomi discontinued by neurology Objective - Vital Signs Vital signs: Vital Signs Temp 98.1 F 01/17/23 04:35 Pulse 65 01/17/23 04:35 Resp 18 01/17/23 04:35 BP 134/66 01/17/23 04:35 Pulse Ox 93 L 01/17/23 04:35 FiO2 Intake & Output 01/16/23 01/17/23 01/17/23 18:59 06:59 18:59 Output Total 275 Balance -275 Output: Urine 275 Other: Voiding Method Indwelling Catheter Indwelling Catheter CAPD CAPD # Bowel Movements 1 - Labs CBC & Chem 7: 01/16/23 07:37 01/16/23 07:37 Labs: Abnormal Lab Results - Last 24 Hours (Table) 01/16/23 01/16/23 01/16/23 Range/Units 11:52 16:46 20:15 POC Glucose (mg/dL) 246 H 180 H 228 H (70-110) mg/dL 01/17/23 Range/Units 06:25 POC Glucose (mg/dL) 187 H (70-110) mg/dL Microbiology - Last 24 Hours (Table) 01/15/23 08:10 Blood Culture - Preliminary Blood 01/12/23 10:00 Blood Culture - Preliminary Blood 01/12/23 15:55 Gram Stain - Preliminary Peritoneal Fluid Body Fluid Culture - Preliminary
[2023-01-17] MEDS: ACYCLOVIR SODIUM 500 MG in SODIUM CHLORIDE 0.9% 100 ML IVPB SCH (16:05)
[2023-01-17 16:40] LABS: Glucose,Whole Blood 205 mg/dL (70-110)
[2023-01-17 18:25] LABS: Anisocytosis Slight; HGB 9.4 gm/dL (13.0-17.5); MCH 31.6 pg (25.0-35.0); MCHC 33.6 g/dL (31.0-37.0); MCV 94.1 fL (80.0-100.0); Macrocytosis Slight; Mean Platelet Volume 8.3; RBC 2.97 m/uL (4.30-5.90); RDW 19.9 % (11.5-15.5); WBC 4.8 k/uL (3.8-10.6)
[2023-01-17 18:40] LABS: Platelet Count 98 k/uL (150-450)
[2023-01-17 20:19] LABS: Glucose,Whole Blood 252 mg/dL (70-110)
[2023-01-17] MEDS: PRAVASTATIN SODIUM 40 MG TAB PO SCH (22:04)
[2023-01-17] MEDS: INSULIN DETEMIR (LEVEMIR) 100 UNIT/ML SYR SQ SCH (22:04)
[2023-01-18] MEDS: DIALYSIS (PERIT 2.5%) 2,500 ML 62.5 G/2,500 ML BAG INTRAPERIT SCH ×3 (04:15→22:10)
[2023-01-18 05:59] LABS: Anisocytosis Moderate; Basophils % (A) 0 %; Eosinophils # (A) 0.1 k/uL (0-0.7); Eosinophils % (A) 2 %; HCT 26.6 % (39.0-53.0); HGB 8.9 gm/dL (13.0-17.5); Lymphocytes # (A) 0.4 k/uL (1.0-4.8); Lymphocytes % (A) 9 %; MCH 30.2 pg (25.0-35.0); MCHC 33.5 g/dL (31.0-37.0); MCV 90.2 fL (80.0-100.0); Macrocytosis Slight; Mean Platelet Volume 8.2; Monocytes # (A) 0.3 k/uL (0-1.0); Monocytes % (A) 8 %; Neutrophils # (A) 3.2 k/uL (1.3-7.7); Neutrophils % (A) 79 %; Platelet Count 103 k/uL (150-450); RBC 2.95 m/uL (4.30-5.90); RDW 20.6 % (11.5-15.5)
[2023-01-18 06:09] LABS: Albumin 2.8 g/dL (3.5-5.0); Calcium 9.3 mg/dL (8.4-10.2); Potassium 3.8 mmol/L (3.5-5.1); Total Bilirubin 0.4 mg/dL (0.2-1.3); Total Protein 4.8 g/dL (6.3-8.2)
[2023-01-18 06:13] LABS: Glucose,Whole Blood 197 mg/dL (70-110)
[2023-01-18] MEDS: INSULIN ASPART (NovoLOG) 100 UNIT/ML VIAL SQ SCH ×4 (06:30→20:48)
[2023-01-18] MEDS: SEVELAMER 800 MG TAB PO SCH ×3 (06:30→17:16)
[2023-01-18] MEDS: TORSEMIDE 20 MG TAB PO SCH (09:02)
[2023-01-18] MEDS: POTASSIUM CHLORIDE ER 20 MEQ TAB.ER PO SCH (09:02)
[2023-01-18] MEDS: NON FORMULARY DRUG (Exemestane [Aromasin] 25 MG Tablet) PO SCH (09:02)
[2023-01-18] MEDS: AMIODARONE 200 MG TAB PO SCH (09:02)
[2023-01-18] MEDS: allopurinoL 100 MG TAB PO SCH (09:02)
[2023-01-18] MEDS: TAMSULOSIN 0.4 MG CAP.ER.24H PO SCH ×2 (09:02→20:48)
[2023-01-18] MEDS: hydrALAZINE HCL 50 MG TAB PO SCH ×2 (09:02→20:48)
[2023-01-18] MEDS: METOPROLOL SUCCINATE (ER) 25 MG TAB.ER.24H PO SCH (09:02)
[2023-01-18] MEDS: amLODIPine 5 MG TAB PO SCH ×2 (09:02→20:48)
--- NOTE | 2023-01-18 11:03 | P.PN ---
Subjective Patient is seen for follow-up for end-stage renal disease. Maintained on peritoneal dialysis. Patient did have a bowel movement this morning. No significant complaints today. Tolerating oral intake. is present at bedside. Patient has not had much UF Objective - Vital Signs Vital signs: Vital Signs Temp 98.3 F 01/18/23 04:15 Pulse 74 01/18/23 09:00 Resp 16 01/18/23 09:00 BP 157/84 01/18/23 09:00 Pulse Ox 94 L 01/18/23 09:00 FiO2 Intake & Output 01/17/23 01/18/23 01/18/23 18:59 06:59 18:59 Intake Total 480 0 180 Output Total 350 Balance 480 -350 180 Intake: Oral 480 0 180 Output: Urine 350 Other: Voiding Method Indwelling Catheter Indwelling Catheter Indwelling Catheter CAPD CAPD CAPD - Exam Patient is awake, comfortable, no acute distress Examination of the heart S1 and S2 Examination of the lungs bilateral breath sounds are heard Abdomen is soft nontender Examination lower extremity shows no significant edema - Labs CBC & Chem 7: 01/18/23 04:52 01/18/23 04:52 Labs: Abnormal Lab Results - Last 24 Hours (Table) 01/17/23 01/17/23 01/17/23 Range/Units 11:51 16:39 18:08 RBC 2.97 L (4.30-5.90) m/uL Hgb 9.4 L (13.0-17.5) gm/dL Hct 28.0 L (39.0-53.0) % RDW 19.9 H (11.5-15.5) % Plt Count 98 L (150-450) k/uL Lymphocytes # (1.0-4.8) k/uL Sodium (137-145) mmol/L Chloride (98-107) mmol/L BUN (9-20) mg/dL Creatinine (0.66-1.25) mg/dL Glucose (74-99) mg/dL POC Glucose (mg/dL) 232 H 205 H (70-110) mg/dL Total Protein (6.3-8.2) g/dL Albumin (3.5-5.0) g/dL 01/17/23 01/18/23 01/18/23 Range/Units 20:18 04:52 04:52 RBC 2.95 L (4.30-5.90) m/uL Hgb 8.9 L (13.0-17.5) gm/dL Hct 26.6 L (39.0-53.0) % RDW 20.6 H (11.5-15.5) % Plt Count 103 L (150-450) k/uL Lymphocytes # 0.4 L (1.0-4.8) k/uL Sodium 134 L (137-145) mmol/L Chloride 97 L (98-107) mmol/L BUN 48 H (9-20) mg/dL Creatinine 3.78 H (0.66-1.25) mg/dL Glucose 137 H (74-99) mg/dL POC Glucose (mg/dL) 252 H (70-110) mg/dL Total Protein 4.8 L (6.3-8.2) g/dL Albumin 2.8 L (3.5-5.0) g/dL 01/18/23 Range/Units 06:11 RBC (4.30-5.90) m/uL Hgb (13.0-17.5) gm/dL Hct (39.0-53.0) % RDW (11.5-15.5) % Plt Count (150-450) k/uL Lymphocytes # (1.0-4.8) k/uL Sodium (137-145) mmol/L Chloride (98-107) mmol/L BUN (9-20) mg/dL Creatinine (0.66-1.25) mg/dL Glucose (74-99) mg/dL POC Glucose (mg/dL) 197 H (70-110) mg/dL Total Protein (6.3-8.2) g/dL Albumin (3.5-5.0) g/dL Microbiology - Last 24 Hours (Table) 01/15/23 08:10 Blood Culture - Preliminary Blood 01/12/23 10:00 Blood Culture - Final Blood 01/12/23 15:55 Gram Stain - Final Peritoneal Fluid Body Fluid Culture - Final Assessment and Plan Assessment: 1. End-stage renal disease maintained on peritoneal dialysis. 2. Altered mental status. Concern for infection. Blood culture positive for coag-negative staph. On antibiotics. Being followed by infectious disease and neurology. No evidence of peritonitis. EEG suggestive of toxic metabolic encephalopathy. No acute changes noted on CT. On Keppra. Also on IV acyclovir. 3. Hypertension with chronic kidney disease. Stable. 4. Diabetes mellitus. 5. Volume overload. Pleural effusions noted on chest x-ray. 6. Chronic kidney disease mineral bone disease. Phosphorus 6.0 dated 01/13/2023. On Renvela. 7. Hypokalemia from diuretics and PD losses. Replaced. Also on potassium supplementation Plan: Add a 4.25% exchange this afternoon to increase UF. Maintain regular bowel movements Encouraged increased oral intake
[2023-01-18 11:41] LABS: Glucose,Whole Blood 241 mg/dL (70-110)
--- NOTE | 2023-01-18 12:55 | P.PN ---
Subjective Progress Note Date: 01/18/23 Patient is a 72-year-old male with a past medical history significant for end-stage renal disease on peritoneal dialysis, also history of brain tumor resection followed by an episode of encephalitis about 10 years ago history provided by the son and did have a history of shingles, admitted to the hospital with mental status status changes and the patient was noticed to be hypothermic 01/17. Patient seen and examined. at the bedside. According to her patient has been doing better compared to yesterday, patient much more alert and appropriate and answering questions appropriately 01/18. Patient seen and examined. No acute issues overnight. Hemoglobin this morning is 8.9. Sodium this morning is 134, potassium 3.8, BUN 3.78. Discussed with patient's , FOBT was positive but patient hemoglobin has remained stable, if hemoglobin drops than thought of endoscopic workup can be entertained. REVIEW OF SYSTEMS: CONSTITUTIONAL: No fever, no malaise,. CARDIOVASCULAR: No chest pain, no palpitations, no syncope. PULMONARY: No shortness of breath, no cough, GASTROINTESTINAL: No diarrhea, no nausea, no vomiting, no abdominal pain. NEUROLOGICAL: No headaches, no weakness, PHYSICAL EXAMINATION: GENERAL: The patient is alert and oriented x3, not in any acute distress. Well developed, well nourished. HEENT: Pupils are round and equally reacting to light. EOMI. No scleral icterus. No conjunctival pallor. Normocephalic, atraumatic. No pharyngeal erythema. No thyromegaly. Right facial droop and droopiness of right eyelid noticeable CARDIOVASCULAR: S1 and S2 present. No murmurs, rubs, or gallops. PULMONARY: Chest is clear to auscultation, no wheezing or crackles. ABDOMEN: Soft, nontender, nondistended, normoactive bowel sounds. No palpable o rganomegaly. MUSCULOSKELETAL: No joint swelling or deformity. EXTREMITIES: 1+ pitting edema of lower extremities bilaterally NEUROLOGICAL: Has baseline left-sided weakness SKIN: No rashes. Assessment and plan Metabolic encephalopathy multifactorial rule out varicella-zoster encephalitis or HSV encephalitis, cannot rule out seizure. 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 Right-sided pleural effusion with compressive atelectasis rule out pneumonia. leukocytosis History of CAD post CABG as well as PCI and stent placement. History of paroxysmal atrial fibrillation. Hypertension and hypertensive cardiovascular disease. Hyperlipidemia. Chronic kidney disease stage IV, approaching ESRD, we will arrange for Perma catheter placement and HD to be started History of enlarged prostate. Diabetes mellitus type 2. Diabetic polyneuropathy. History of DVT status post IVC filter placement Chronic gout. History of meningioma with left-sided weakness. Protein calorie meditation. Possible seizure disorder Left lower extremity edema Plan; Monitor vital signs Monitor CBC Monitor CMP continue the patient on Acyclovir 500 mg IV piggyback every 24 hours, Continue patient on Eliquis 5 mg orally twice every day, continue amiodarone 100 mg orally once every day, metoprolol XL 25 mg orally once every day. Continue Lantus 30 units at bedtime, monitor the patient blood glucose level and at bedtime with NovoLog scale Continue peritoneal dialysis per nephrology Follow-up in [place] recs Follow-up on neurology recommendations, Naomi discontinued by neurology Objective - Vital Signs Vital signs: Vital Signs Temp 98.3 F 01/18/23 04:15 Pulse 74 01/18/23 09:00 Resp 16 01/18/23 09:00 BP 157/84 01/18/23 09:00 Pulse Ox 94 L 01/18/23 09:00 FiO2 Intake & Output 01/17/23 01/18/23 01/18/23 18:59 06:59 18:59 Intake Total 480 0 180 Output Total 350 Balance 480 -350 180 Intake: Oral 480 0 180 Output: Urine 350 Other: Voiding Method Indwelling Catheter Indwelling Catheter Indwelling Catheter CAPD CAPD CAPD - Labs CBC & Chem 7: 01/18/23 04:52 01/18/23 04:52 Labs: Abnormal Lab Results - Last 24 Hours (Table) 01/17/23 01/17/23 01/17/23 Range/Units 11:51 16:39 18:08 RBC 2.97 L (4.30-5.90) m/uL Hgb 9.4 L (13.0-17.5) gm/dL Hct 28.0 L (39.0-53.0) % RDW 19.9 H (11.5-15.5) % Plt Count 98 L (150-450) k/uL Lymphocytes # (1.0-4.8) k/uL Sodium (137-145) mmol/L Chloride (98-107) mmol/L BUN (9-20) mg/dL Creatinine (0.66-1.25) mg/dL Glucose (74-99) mg/dL POC Glucose (mg/dL) 232 H 205 H (70-110) mg/dL Total Protein (6.3-8.2) g/dL Albumin (3.5-5.0) g/dL 01/17/23 01/18/23 01/18/23 Range/Units 20:18 04:52 04:52 RBC 2.95 L (4.30-5.90) m/uL Hgb 8.9 L (13.0-17.5) gm/dL Hct 26.6 L (39.0-53.0) % RDW 20.6 H (11.5-15.5) % Plt Count 103 L (150-450) k/uL Lymphocytes # 0.4 L (1.0-4.8) k/uL Sodium 134 L (137-145) mmol/L Chloride 97 L (98-107) mmol/L BUN 48 H (9-20) mg/dL Creatinine 3.78 H (0.66-1.25) mg/dL Glucose 137 H (74-99) mg/dL POC Glucose (mg/dL) 252 H (70-110) mg/dL Total Protein 4.8 L (6.3-8.2) g/dL Albumin 2.8 L (3.5-5.0) g/dL 01/18/23 Range/Units 06:11 RBC (4.30-5.90) m/uL Hgb (13.0-17.5) gm/dL Hct (39.0-53.0) % RDW (11.5-15.5) % Plt Count (150-450) k/uL Lymphocytes # (1.0-4.8) k/uL Sodium (137-145) mmol/L Chloride (98-107) mmol/L BUN (9-20) mg/dL Creatinine (0.66-1.25) mg/dL Glucose (74-99) mg/dL POC Glucose (mg/dL) 197 H (70-110) mg/dL Total Protein (6.3-8.2) g/dL Albumin (3.5-5.0) g/dL Microbiology - Last 24 Hours (Table) 05/04/23 08:10 Blood Culture - Preliminary Blood 01/12/23 10:00 Blood Culture - Final Blood 01/12/23 15:55 Gram Stain - Final Peritoneal Fluid Body Fluid Culture - Final
--- NOTE | 2023-01-18 15:21 | P.PN ---
Subjective Progress Note Date: 01/18/23 The patient is seen in neurologic follow-up on January 18, 2023, via teleneurology. The patient's is present at the bedside at the time of the evaluation. She reports that her is more alert and there have been no reported episodes of staring spells. The patient himself feels he is more alert and closer to baseline. The patient does report a tingling sensation in the right side of his face toda y. He has a history of right sided herpes zoster, as well as Gill palsy, diagnosed approximately one week ago. The patient is a 72-year-old male who is seen in neurologic follow-up on January 17, 2023, via teleneurology. The patient's chart has been reviewed. The patient reportedly has a history of end-stage renal disease on peritoneal dialysis. He came into the hospital because of confusion. Lumbar puncture has not been done he cause of anticoagulation. MRI of the brain has not been done. EEG was performed and there is concern for findings of toxic metabolic encephalopathy as well as potential epileptiform discharges. The patient is currently being treated for possible herpes encephalitis. Because of the abnormal EEG, the patient was started on Keppra and it seems that Keppra was causing the patient to be excessively sedated and so this medication was stopped yesterday per family request. Per nursing and the patient's who is present at the bedside at the time of the evaluation, the patient has had no further staring episodes. The patient is reportedly more awake and alert today. He is speaking in complete sentences. He is oriented 3. According to the patient's , the patient was not speaking in sentences yesterday he only would say one word at a time. Objective - Vital Signs Vital signs: Vital Signs Temp 98.3 F 01/18/23 04:15 Pulse 74 01/18/23 09:00 Resp 16 01/18/23 09:00 BP 157/84 01/18/23 09:00 Pulse Ox 94 L 01/18/23 09:00 FiO2 Intake & Output 01/17/23 01/18/23 01/18/23 18:59 06:59 18:59 Intake Total 480 0 180 Output Total 350 Balance 480 -350 180 Intake: Oral 480 0 180 Output: Urine 350 Other: Voiding Method Indwelling Catheter Indwelling Catheter Indwelling Catheter CAPD CAPD CAPD - Exam Gen.: The patient is reclining in the bed. He initially is wearing his CPAP machine. His is able to take this off. The patient is in no distress HEENT: Head is atraumatic, normocephalic. Fundus not visualized. There is no scleral icterus. Mucous membranes are moist. Neurological examination Mental status: The patient is awake, alert and oriented 3. He is speaking in complete sentences. His speech is clear. There is no dysarthria or aphasia. The patient is able to follow commands without difficulty. Cranial nerves: Pupils are equal at 3 mm and reactive. Visual miller are full to confrontation. There is a right facial droop. There is decreased right eyelid closure. The patient is unable to elevate his right eyebrow. There is a tingling sensation in the right V2 distribution. - Labs CBC & Chem 7: 01/18/23 04:52 01/18/23 04:52 Labs: Abnormal Lab Results - Last 24 Hours (Table) 01/17/23 01/17/23 01/17/23 Range/Units 16:39 18:08 20:18 RBC 2.97 L (4.30-5.90) m/uL Hgb 9.4 L (13.0-17.5) gm/dL Hct 28.0 L (39.0-53.0) % RDW 19.9 H (11.5-15.5) % Plt Count 98 L (150-450) k/uL Lymphocytes # (1.0-4.8) k/uL Sodium (137-145) mmol/L Chloride (98-107) mmol/L BUN (9-20) mg/dL Creatinine (0.66-1.25) mg/dL Glucose (74-99) mg/dL POC Glucose (mg/dL) 205 H 252 H (70-110) mg/dL Total Protein (6.3-8.2) g/dL Albumin (3.5-5.0) g/dL 01/18/23 01/18/23 01/18/23 Range/Units 04:52 04:52 06:11 RBC 2.95 L (4.30-5.90) m/uL Hgb 8.9 L (13.0-17.5) gm/dL Hct 26.6 L (39.0-53.0) % RDW 20.6 H (11.5-15.5) % Plt Count 103 L (150-450) k/uL Lymphocytes # 0.4 L (1.0-4.8) k/uL Sodium 134 L (137-145) mmol/L Chloride 97 L (98-107) mmol/L BUN 48 H (9-20) mg/dL Creatinine 3.78 H (0.66-1.25) mg/dL Glucose 137 H (74-99) mg/dL POC Glucose (mg/dL) 197 H (70-110) mg/dL Total Protein 4.8 L (6.3-8.2) g/dL Albumin 2.8 L (3.5-5.0) g/dL 01/18/23 Range/Units 11:39 RBC (4.30-5.90) m/uL Hgb (13.0-17.5) gm/dL Hct (39.0-53.0) % RDW (11.5-15.5) % Plt Count (150-450) k/uL Lymphocytes # (1.0-4.8) k/uL Sodium (137-145) mmol/L Chloride (98-107) mmol/L BUN (9-20) mg/dL Creatinine (0.66-1.25) mg/dL Glucose (74-99) mg/dL POC Glucose (mg/dL) 241 H (70-110) mg/dL Total Protein (6.3-8.2) g/dL Albumin (3.5-5.0) g/dL Microbiology - Last 24 Hours (Table) 01/15/23 08:10 Blood Culture - Preliminary Blood 01/12/23 10:00 Blood Culture - Final Blood 01/12/23 15:55 Gram Stain - Final Peritoneal Fluid Body Fluid Culture - Final Assessment and Plan Assessment: * Altered mental status, likely due to toxic metabolic encephalopathy, presumed viral encephalitis-Mental status has improved since discontinuation of Keppra, as well as initiation of treatment for viral encephalitis * Acute hypothermia, hypotension, resolved. Cultures so far negative. Blood cultures growing coagulase-negative staph likely from contaminant as per ID. * Abnormal routine and prolonged EEG * Patient has recurrent episodes of staring off spells in space, each lasting for about 5-10 minutes, concerning for partial seizures. No further staring spells since being on Keppra. 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 Family believed patient had encephalitis at the time he was diagnosed with brain tumor. * Hypertension * Diabetes * Coronary artery disease * Hyperlipidemia * Right eye blindness, chronic * Obesity Plan: 1. Continue seizure precautions 2. Continue treatment for assumed viral encephalitis 3. Will continue to hold Keppra at this time. If seizures are observed, the patient will be started on Vimpat 4. Discussed taping the right eye closed at night, to further protect the cornea, as the patient is unable to completely close his right eye, Secondary to muscle weakness related to Arguelles's palsy Time with Patient: Less than 30 (Spent 25 minutes caring for this patient today including obtaining a history, examining the patient, reviewing labs, chart documentation and creating this note)
[2023-01-18] MEDS ORDERED: DIALYSIS (PERIT 4.25%) 2500 ML 106.25 G/2,500 ML BAG INTRAPERIT ONE (16:00)
--- NOTE | 2023-01-18 16:01 | P.PN ---
Subjective Progress Note Date: 01/18/23 Principal diagnosis: Encephalitis Patient is a 72-year-old male with a past medical history significant for end-stage renal disease on peritoneal dialysis, also history of brain tumor resection followed by an episode of encephalitis about 10 years ago history provided by the son and did have a history of shingles, admitted to the hospital with mental status status changes and the patient was noticed to be hypothermic with initial concern for possible SBP On today's evaluation and that is 01/18/2023, the patient remains to be afebrile, patient is more awake and alert, the patient denies any headache , the patient denies having chest pain shortness of breath or cough, nausea vomiting or diarrhea has been reported Objective - Vital Signs Vital signs: Vital Signs Temp 98.3 F 01/18/23 04:15 Pulse 67 01/18/23 12:24 Resp 16 01/18/23 12:24 BP 150/90 01/18/23 12:24 Pulse Ox 97 01/18/23 12:24 FiO2 Intake & Output 01/17/23 01/18/23 01/18/23 18:59 06:59 18:59 Intake Total 480 0 360 Output Total 350 300 Balance 480 -350 60 Intake: Oral 480 0 360 Output: Urine 350 300 Other: Voiding Method Indwelling Catheter Indwelling Catheter Indwelling Catheter CAPD CAPD CAPD - Exam GENERAL DESCRIPTION: An elderly male lying in bed in no distress RESPIRATORY SYSTEM: Unlabored breathing , decreased breath sounds at bases HEART: S1 S2 regular rate and rhythm , ABDOMEN: Soft , no tenderness EXTREMITIES: No edema feet - Labs CBC & Chem 7: 01/18/23 04:52 01/18/23 04:52 Labs: Abnormal Lab Results - Last 24 Hours (Table) 01/17/23 01/17/23 01/17/23 Range/Units 16:39 18:08 20:18 RBC 2.97 L (4.30-5.90) m/uL Hgb 9.4 L (13.0-17.5) gm/dL Hct 28.0 L (39.0-53.0) % RDW 19.9 H (11.5-15.5) % Plt Count 98 L (150-450) k/uL Lymphocytes # (1.0-4.8) k/uL Sodium (137-145) mmol/L Chloride (98-107) mmol/L BUN (9-20) mg/dL Creatinine (0.66-1.25) mg/dL Glucose (74-99) mg/dL POC Glucose (mg/dL) 205 H 252 H (70-110) mg/dL Total Protein (6.3-8.2) g/dL Albumin (3.5-5.0) g/dL 01/18/23 01/18/23 01/18/23 Range/Units 04:52 04:52 06:11 RBC 2.95 L (4.30-5.90) m/uL Hgb 8.9 L (13.0-17.5) gm/dL Hct 26.6 L (39.0-53.0) % RDW 20.6 H (11.5-15.5) % Plt Count 103 L (150-450) k/uL Lymphocytes # 0.4 L (1.0-4.8) k/uL Sodium 134 L (137-145) mmol/L Chloride 97 L (98-107) mmol/L BUN 48 H (9-20) mg/dL Creatinine 3.78 H (0.66-1.25) mg/dL Glucose 137 H (74-99) mg/dL POC Glucose (mg/dL) 197 H (70-110) mg/dL Total Protein 4.8 L (6.3-8.2) g/dL Albumin 2.8 L (3.5-5.0) g/dL 01/18/23 Range/Units 11:39 RBC (4.30-5.90) m/uL Hgb (13.0-17.5) gm/dL Hct (39.0-53.0) % RDW (11.5-15.5) % Plt Count (150-450) k/uL Lymphocytes # (1.0-4.8) k/uL Sodium (137-145) mmol/L Chloride (98-107) mmol/L BUN (9-20) mg/dL Creatinine (0.66-1.25) mg/dL Glucose (74-99) mg/dL POC Glucose (mg/dL) 241 H (70-110) mg/dL Total Protein (6.3-8.2) g/dL Albumin (3.5-5.0) g/dL Microbiology - Last 24 Hours (Table) 01/15/23 08:10 Blood Culture - Preliminary Blood 01/12/23 10:00 Blood Culture - Final Blood 01/12/23 15:55 Gram Stain - Final Peritoneal Fluid Body Fluid Culture - Final Assessment and Plan (1) Encephalopathy acute Current Visit: Yes Status: Acute Code(s): G93.40 - ENCEPHALOPATHY, UNSPECIFIED SNOMED Code(s): 93940206 (2) AMS (altered mental status) Current Visit: Yes Status: Acute Code(s): R41.82 - ALTERED MENTAL STATUS, UNSPECIFIED SNOMED Code(s): 693220289 Plan: 1patient presented to hospital with sepsis in this patient with hypothermia h ypotension did have leukopenia concern for possible SBP as no other obvious focus of infection chest x-ray is mostly pulmonary vascular congestion, clinically doubt encephalitis initially as the patient was awake alert oriented 3 yesterday and denied any headache, the patient peritoneal fluid came back negative and now with worsening of his mentation and a previous history of encephalitis ideally would have also for LP however the patient is on Eliquis, and high risk of bleeding 2--with a negative blood culture and peritoneal fluid culture , Rocephin has been discontinued, patient doing well off antibiotic at this point 3-positive blood culture with staph epi likely skin contamination, repeat cultures so far negative 4-patient did have some clinical improvement and will continue the patient on IV acyclovir, and monitor clinical course closely
[2023-01-18 16:20] LABS: Glucose,Whole Blood 218 mg/dL (70-110)
[2023-01-18] MEDS: ACYCLOVIR SODIUM 500 MG in SODIUM CHLORIDE 0.9% 100 ML IVPB SCH (16:21)
[2023-01-18] MEDS: ACETAMINOPHEN TAB 325 MG TAB PO PRN (19:41)
[2023-01-18 20:12] LABS: Glucose,Whole Blood 279 mg/dL (70-110)
[2023-01-18] MEDS: INSULIN DETEMIR (LEVEMIR) 100 UNIT/ML SYR SQ SCH (20:48)
[2023-01-18] MEDS: PRAVASTATIN SODIUM 40 MG TAB PO SCH (20:48)
[2023-01-18] MEDS: LACTULOSE 20 GM/30 ML CUP PO SCH (20:51)
[2023-01-19] MEDS: DIALYSIS (PERIT 2.5%) 2,500 ML 62.5 G/2,500 ML BAG INTRAPERIT SCH ×4 (04:06→21:58)
[2023-01-19 06:02] LABS: Glucose,Whole Blood 183 mg/dL (70-110)
[2023-01-19] MEDS: SEVELAMER 800 MG TAB PO SCH ×3 (06:39→17:15)
[2023-01-19] MEDS: INSULIN ASPART (NovoLOG) 100 UNIT/ML VIAL SQ SCH ×4 (06:43→21:18)
[2023-01-19] MEDS: amLODIPine 5 MG TAB PO SCH ×2 (07:53→21:18)
[2023-01-19] MEDS: allopurinoL 100 MG TAB PO SCH (07:53)
[2023-01-19] MEDS: POTASSIUM CHLORIDE ER 20 MEQ TAB.ER PO SCH (07:54)
[2023-01-19] MEDS: TAMSULOSIN 0.4 MG CAP.ER.24H PO SCH ×2 (07:54→21:17)
[2023-01-19] MEDS: AMIODARONE 200 MG TAB PO SCH (07:54)
[2023-01-19] MEDS: hydrALAZINE HCL 50 MG TAB PO SCH ×2 (07:54→21:18)
[2023-01-19] MEDS: TORSEMIDE 20 MG TAB PO SCH ×2 (07:54→21:17)
[2023-01-19] MEDS: METOPROLOL SUCCINATE (ER) 25 MG TAB.ER.24H PO SCH (07:54)
[2023-01-19] MEDS: NON FORMULARY DRUG (Exemestane [Aromasin] 25 MG Tablet) PO SCH (07:55)
[2023-01-19 08:03] LABS: Anisocytosis Moderate; Basophils % (A) 1 %; Eosinophils # (A) 0.1 k/uL (0-0.7); Eosinophils % (A) 1 %; HCT 25.5 % (39.0-53.0); HGB 8.4 gm/dL (13.0-17.5); Lymphocytes # (A) 0.3 k/uL (1.0-4.8); Lymphocytes % (A) 7 %; MCH 30.5 pg (25.0-35.0); MCHC 32.8 g/dL (31.0-37.0); MCV 92.7 fL (80.0-100.0); Macrocytosis Slight; Mean Platelet Volume 7.8; Monocytes # (A) 0.4 k/uL (0-1.0); Monocytes % (A) 8 %; Neutrophils # (A) 3.7 k/uL (1.3-7.7); Neutrophils % (A) 79 %; Platelet Count 121 k/uL (150-450); RBC 2.75 m/uL (4.30-5.90); WBC 4.6 k/uL (3.8-10.6)
[2023-01-19 08:30] LABS: Albumin 2.7 g/dL (3.5-5.0); Calcium 9.3 mg/dL (8.4-10.2); Potassium 3.6 mmol/L (3.5-5.1); Total Bilirubin 0.3 mg/dL (0.2-1.3); Total Protein 4.7 g/dL (6.3-8.2)
--- NOTE | 2023-01-19 11:01 | P.PN ---
Subjective Progress Note Date: 01/19/23 Principal diagnosis: Encephalitis Patient is a 72-year-old male with a past medical history significant for end-stage renal disease on peritoneal dialysis, also history of brain tumor resection followed by an episode of encephalitis about 10 years ago history provided by the son and did have a history of shingles, admitted to the hospital with mental status status changes and the patient was noticed to be hypothermic with initial concern for possible SBP On today's evaluation and that is 01/19/2023, the patient continues to be afebrile, patient is awake and alert and back to his baseline per the at the bedside, the patient denies any headache , the patient denies having chest pain shortness of breath or cough, nausea vomiting or diarrhea has been reported Objective - Vital Signs Vital signs: Vital Signs Temp 98.5 F 01/19/23 07:52 Pulse 65 01/19/23 07:52 Resp 16 01/19/23 07:52 BP 138/75 01/19/23 07:52 Pulse Ox 99 01/19/23 07:52 FiO2 Intake & Output 01/18/23 01/19/23 01/19/23 18:59 06:59 18:59 Intake Total 540 160 Output Total 300 125 Balance 240 35 Intake: IV 160 0.9 160 Oral 540 Output: Urine 300 125 Other: Voiding Method Indwelling Catheter Indwelling Catheter Indwelling Catheter CAPD CAPD CAPD - Exam GENERAL DESCRIPTION: An elderly male lying in bed in no distress RESPIRATORY SYSTEM: Unlabored breathing , decreased breath sounds at bases HEART: S1 S2 regular rate and rhythm , ABDOMEN: Soft , no tenderness EXTREMITIES: No edema feet - Labs CBC & Chem 7: 01/19/23 07:15 01/19/23 07:15 Labs: Abnormal Lab Results - Last 24 Hours (Table) 01/18/23 01/18/23 01/18/23 Range/Units 11:39 16:18 20:10 RBC (4.30-5.90) m/uL Hgb (13.0-17.5) gm/dL Hct (39.0-53.0) % RDW (11.5-15.5) % Plt Count (150-450) k/uL Lymphocytes # (1.0-4.8) k/uL Sodium (137-145) mmol/L BUN (9-20) mg/dL Creatinine (0.66-1.25) mg/dL Glucose (74-99) mg/dL POC Glucose (mg/dL) 241 H 218 H 279 H (70-110) mg/dL Total Protein (6.3-8.2) g/dL Albumin (3.5-5.0) g/dL 01/19/23 01/19/23 01/19/23 Range/Units 06:01 07:15 07:15 RBC 2.75 L (4.30-5.90) m/uL Hgb 8.4 L (13.0-17.5) gm/dL Hct 25.5 L (39.0-53.0) % RDW 21.0 H (11.5-15.5) % Plt Count 121 L (150-450) k/uL Lymphocytes # 0.3 L (1.0-4.8) k/uL Sodium 135 L (137-145) mmol/L BUN 45 H (9-20) mg/dL Creatinine 3.46 H (0.66-1.25) mg/dL Glucose 159 H (74-99) mg/dL POC Glucose (mg/dL) 183 H (70-110) mg/dL Total Protein 4.7 L (6.3-8.2) g/dL Albumin 2.7 L (3.5-5.0) g/dL Microbiology - Last 24 Hours (Table) 01/15/23 08:10 Blood Culture - Preliminary Blood 01/12/23 10:00 Blood Culture - Final Blood Assessment and Plan (1) Encephalopathy acute Current Visit: Yes Status: Acute Code(s): G93.40 - ENCEPHALOPATHY, UNSP ECIFIED SNOMED Code(s): 59287897 (2) AMS (altered mental status) Current Visit: Yes Status: Acute Code(s): R41.82 - ALTERED MENTAL STATUS, UNSPECIFIED SNOMED Code(s): 781760618 Plan: 1patient presented to hospital with sepsis in this patient with hypothermia hypotension did have leukopenia concern for possible SBP as no other obvious focus of infection chest x-ray is mostly pulmonary vascular congestion, clinically doubt encephalitis initially as the patient was awake alert oriented 3 yesterday and denied any headache, the patient peritoneal fluid came back negative and now with worsening of his mentation and a previous history of encephalitis ideally would have also for LP however the patient is on Eliquis, and high risk of bleeding 2--with a negative blood culture and peritoneal fluid culture , Rocephin has been discontinued, patient doing well off antibiotic at this point 3-positive blood culture with staph epi likely skin contamination, repeat cultures so far negative 4-patient did have some clinical improvement and will continue the patient on IV acyclovir, however will be able to finish therapy with oral Valtrex 500 mg daily for 2 weeks at the bedside questions Answered Time with Patient: Less than 30
--- NOTE | 2023-01-19 11:03 | P.PN ---
Subjective Patient is seen for follow-up for end-stage renal disease. Maintained on peritoneal dialysis. Bowel movements are better No significant complaints today. Tolerating oral intake. is present at bedside. Patient had good UF with 4.25% exchange yesterday. Objective - Vital Signs Vital signs: Vital Signs Temp 98.5 F 01/19/23 07:52 Pulse 65 01/19/23 07:52 Resp 16 01/19/23 07:52 BP 138/75 01/19/23 07:52 Pulse Ox 99 01/19/23 07:52 FiO2 Intake & Output 01/18/23 01/19/23 01/19/23 18:59 06:59 18:59 Intake Total 540 160 Output Total 300 125 Balance 240 35 Intake: IV 160 0.9 160 Oral 540 Output: Urine 300 125 Other: Voiding Method Indwelling Catheter Indwelling Catheter Indwelling Catheter CAPD CAPD CAPD - Exam Patient is awake, comfortable, no acute distress Examination of the heart S1 and S2 Examination of the lungs bilateral breath sounds are heard Abdomen is soft nontender Examination lower extremity shows much improved edema - Labs CBC & Chem 7: 01/19/23 07:15 01/19/23 07:15 Labs: Abnormal Lab Results - Last 24 Hours (Table) 01/18/23 01/18/23 01/18/23 Range/Units 11:39 16:18 20:10 RBC (4.30-5.90) m/uL Hgb (13.0-17.5) gm/dL Hct (39.0-53.0) % RDW (11.5-15.5) % Plt Count (150-450) k/uL Lymphocytes # (1.0-4.8) k/uL Sodium (137-145) mmol/L BUN (9-20) mg/dL Creatinine (0.66-1.25) mg/dL Glucose (74-99) mg/dL POC Glucose (mg/dL) 241 H 218 H 279 H (70-110) mg/dL Total Protein (6.3-8.2) g/dL Albumin (3.5-5.0) g/dL 01/19/23 01/19/23 01/19/23 Range/Units 06:01 07:15 07:15 RBC 2.75 L (4.30-5.90) m/uL Hgb 8.4 L (13.0-17.5) gm/dL Hct 25.5 L (39.0-53.0) % RDW 21.0 H (11.5-15.5) % Plt Count 121 L (150-450) k/uL Lymphocytes # 0.3 L (1.0-4.8) k/uL Sodium 135 L (137-145) mmol/L BUN 45 H (9-20) mg/dL Creatinine 3.46 H (0.66-1.25) mg/dL Glucose 159 H (74-99) mg/dL POC Glucose (mg/dL) 183 H (70-110) mg/dL Total Protein 4.7 L (6.3-8.2) g/dL Albumin 2.7 L (3.5-5.0) g/dL Microbiology - Last 24 Hours (Table) 01/15/23 08:10 Blood Culture - Preliminary Blood 01/12/23 10:00 Blood Culture - Final Blood Assessment and Plan Assessment: 1. End-stage renal disease maintained on peritoneal dialysis. 2. Altered mental status. Concern for infection. Blood culture positive for coag-negative staph. On antibiotics. Repeat blood cultures are negative from 01/15/2023. Being followed by infectious disease and neurology. No evidence of peritonitis. EEG suggestive of toxic metabolic encephalopathy. No acute changes noted on CT. On Keppra. Also on IV acyclovir. 3. Hypertension with chronic kidney disease. Stable. 4. Diabetes mellitus. 5. Volume overload. Pleural effusions noted on chest x-ray. 6. Chronic kidney disease mineral bone disease. Phosphorus 6.0 dated 023. On Renvela. 7. Hypokalemia from diuretics and PD losses. Replaced. Also on potassium supplementation Plan: Continue current PD exchanges. Maintain regular bowel movements Encouraged increased oral intake
[2023-01-19] MEDS: LACTULOSE 20 GM/30 ML CUP PO SCH ×2 (11:27→21:18)
[2023-01-19 11:54] LABS: Glucose,Whole Blood 184 mg/dL (70-110)
--- NOTE | 2023-01-19 13:02 | P.PN ---
Subjective Progress Note Date: 01/19/23 I'm seeing the patient for the first time during this hospital visit. Please refer to Dr. Mariee and Dr. Oglesby's note for further details. The patient is accompanied with his and is seems the patient had that shingles about 10 days ago and the soon after that the patient had Arguelles's palsy over the right side. Patient denies of current headache and denies of any focal deficit. Denies of any new numbness, weakness. Patient feels is back to baseline and his agrees. She has history of right eye blindness for the past 10 years and he has a diabetes for the last 30 years per remotely his sugar was uncontrolled but the sugar has been controlled after that. Objective - Vital Signs Vital signs: Vital Signs Temp 98.2 F 01/19/23 11:33 Pulse 64 01/19/23 11:33 Resp 16 01/19/23 11:33 BP 126/61 01/19/23 11:33 Pulse Ox 93 L 01/19/23 11:33 FiO2 Intake & Output 01/18/23 01/19/23 01/19/23 18:59 06:59 18:59 Intake Total 540 160 315 Output Total 300 125 Balance 240 35 315 Intake: IV 160 0.9 160 Oral 540 315 Output: Urine 300 125 Other: Voiding Method Indwelling Catheter Indwelling Catheter Indwelling Catheter CAPD CAPD CAPD - Exam Neuro: Higher mental function: Patient is awake alert oriented to self, place and time. Patient is following simple commands. No aphasia or neglect Cranial nerve: White I is opacified and he has legal blindness over the right eye which is old. Left tibial is round and reactive to light. Extraocular movement is intact no nystagmus. Visual miller on the left eye is full. Patient has right facial weakness of upper and lower (peripheral type) and ptosis right eye. No dysarthria. Motor: Strength is a 5 out of 5 over bilateral upper. Right lower is 5 over 5 while left is 0 which is old - Labs CBC & Chem 7: 01/19/23 07:15 01/19/23 07:15 Labs: Abnormal Lab Results - Last 24 Hours (Table) 01/18/23 01/18/23 01/19/23 Range/Units 16:18 20:10 06:01 RBC (4.30-5.90) m/uL Hgb (13.0-17.5) gm/dL Hct (39.0-53.0) % RDW (11.5-15.5) % Plt Count (150-450) k/uL Lymphocytes # (1.0-4.8) k/uL Sodium (137-145) mmol/L BUN (9-20) mg/dL Creatinine (0.66-1.25) mg/dL Glucose (74-99) mg/dL POC Glucose (mg/dL) 218 H 279 H 183 H (70-110) mg/dL Total Protein (6.3-8.2) g/dL Albumin (3.5-5.0) g/dL 01/19/23 01/19/23 01/19/23 Range/Units 07:15 07:15 11:44 RBC 2.75 L (4.30-5.90) m/uL Hgb 8.4 L (13.0-17.5) gm/dL Hct 25.5 L (39.0-53.0) % RDW 21.0 H (11.5-15.5) % Plt Count 121 L (150-450) k/uL Lymphocytes # 0.3 L (1.0-4.8) k/uL Sodium 135 L (137-145) mmol/L BUN 45 H (9-20) mg/dL Creatinine 3.46 H (0.66-1.25) mg/dL Glucose 159 H (74-99) mg/dL POC Glucose (mg/dL) 184 H (70-110) mg/dL Total Protein 4.7 L (6.3-8.2) g/dL Albumin 2.7 L (3.5-5.0) g/dL Microbiology - Last 24 Hours (Table) 01/15/23 08:10 Blood Culture - Preliminary Blood Assessment and Plan Assessment: * Altered mental status, likely due to toxic metabolic encephalopathy, presumed viral encephalitis-Mental status has improved since discontinuation of Keppra, as well as initiation of treatment for viral encephalitis--mentation improved * Acute hypothermia, hypotension, resolved. Cultures so far negative. Blood cultures growing coagulase-negative staph likely from contaminant as per ID. * Abnormal routine and prolonged EEG * Patient has recurrent episodes of staring off spells in space, each lasting for about 5-10 minutes, concerning for partial seizures. No further staring spells since being on Keppra. 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 Family believed patient had encephalitis at the time he was diagnosed with brain tumor. * Hypertension * Diabetes * Coronary artery disease * Hyperlipidemia * Right eye blindness, chronic * Obesity Plan: 1. Continue seizure precautions 2. Continue treatment for assumed viral encephalitis 3. Will continue to hold Keppra at this time. If seizures are observed, the patient will be started on Vimpat 4. Yesterday Dr. Oglesby discussed taping the right eye closed at night, to f urther protect the cornea, as the patient is unable to completely close his right eye, Secondary to muscle weakness related to Arguelles's palsy. I agree with that but patient and his stated he has old right eye blindness for past 10 years. 5. Upon discharge, recommend the patient to follow-up with neurologist as outpatient within 1-2 weeks. The plan is discussed with patient, his who is at bedside and his nurse. Will continue to follow-up with patient if continues to be in hospital. Time with Patient: Less than 30
[2023-01-19] MEDS: ACYCLOVIR SODIUM 500 MG in SODIUM CHLORIDE 0.9% 100 ML IVPB SCH (15:52)
[2023-01-19 16:23] LABS: Glucose,Whole Blood 163 mg/dL (70-110)
[2023-01-19 20:06] LABS: Glucose,Whole Blood 247 mg/dL (70-110)
[2023-01-19] MEDS: INSULIN DETEMIR (LEVEMIR) 100 UNIT/ML SYR SQ SCH (21:18)
[2023-01-19] MEDS: PRAVASTATIN SODIUM 40 MG TAB PO SCH (21:18)
[2023-01-20] MEDS: DIALYSIS (PERIT 2.5%) 2,500 ML 62.5 G/2,500 ML BAG INTRAPERIT SCH ×2 (04:00→10:06)
[2023-01-20 05:58] LABS: Glucose,Whole Blood 171 mg/dL (70-110)
[2023-01-20] MEDS: INSULIN ASPART (NovoLOG) 100 UNIT/ML VIAL SQ SCH ×2 (06:13→12:47)
[2023-01-20] MEDS: SEVELAMER 800 MG TAB PO SCH ×2 (06:13→12:48)
[2023-01-20 08:40] VITALS: RESP 16
[2023-01-20] MEDS: METOPROLOL SUCCINATE (ER) 25 MG TAB.ER.24H PO SCH (08:41)
[2023-01-20] MEDS: hydrALAZINE HCL 50 MG TAB PO SCH (08:42)
[2023-01-20] MEDS: POTASSIUM CHLORIDE ER 20 MEQ TAB.ER PO SCH (08:42)
[2023-01-20] MEDS: AMIODARONE 200 MG TAB PO SCH (08:42)
[2023-01-20] MEDS: TAMSULOSIN 0.4 MG CAP.ER.24H PO SCH (08:42)
[2023-01-20] MEDS: amLODIPine 5 MG TAB PO SCH (08:42)
[2023-01-20] MEDS: allopurinoL 100 MG TAB PO SCH (08:42)
[2023-01-20] MEDS: TORSEMIDE 20 MG TAB PO SCH (08:43)
[2023-01-20] MEDS: NON FORMULARY DRUG (Exemestane [Aromasin] 25 MG Tablet) PO SCH (08:43)
[2023-01-20] MEDS: LACTULOSE 20 GM/30 ML CUP PO SCH (08:46)
[2023-01-20 10:22] VITALS: PULSE 70
[2023-01-20 11:40] VITALS: BP 128/61; TEMP 97.9
[2023-01-20 11:44] LABS: Glucose,Whole Blood 209 mg/dL (70-110)
--- NOTE | 2023-01-20 11:50 | P.PN ---
Subjective Patient is seen for follow-up for end-stage renal disease. Maintained on peritoneal dialysis. Bowel movements are better No significant complaints today. Tolerating oral intake. is present at bedside. Discussed physical therapy and options for discharge. feels she can still mage at home if pt. is able to sit up on the side of the bed. No issues with PD Objective - Vital Signs Vital signs: Vital Signs Temp 97.9 F 01/20/23 11:15 Pulse 70 01/20/23 11:15 Resp 16 01/20/23 11:15 BP 128/61 01/20/23 11:15 Pulse Ox 96 01/20/23 11:15 FiO2 Intake & Output 01/19/23 01/20/23 01/20/23 18:59 06:59 18:59 Intake Total 433 Output Total 900 Balance 433 -900 Intake: Oral 433 Output: Urine 450 Post Void Residual 450 Other: Voiding Method Indwelling Catheter Urinal CAPD CAPD - Exam Patient is awake, comfortable, no acute distress Examination of the heart S1 and S2 Examination of the lungs bilateral breath sounds are heard Abdomen is soft nontender Examination lower extremity shows much improved edema - Labs CBC & Chem 7: 01/19/23 07:15 01/19/23 07:15 Labs: Abnormal Lab Results - Last 24 Hours (Table) 01/19/23 01/19/23 01/19/23 Range/Units 11:44 16:18 20:04 POC Glucose (mg/dL) 184 H 163 H 247 H (70-110) mg/dL 01/20/23 01/20/23 Range/Units 05:56 11:40 POC Glucose (mg/dL) 171 H 209 H (70-110) mg/dL Microbiology - Last 24 Hours (Table) 01/15/23 08:10 Blood Culture - Preliminary Blood Assessment and Plan Assessment: 1. End-stage renal disease maintained on peritoneal dialysis. 2. Altered mental status. Concern for infection. Blood culture positive for coag-negative staph. On antibiotics. Repeat blood cultures are negative from 01/15/2023. Being followed by infectious disease and neurology. No evidence of peritonitis. EEG suggestive of toxic metabolic encephalopathy. No acute changes noted on CT. On Keppra. Also on IV acyclovir. Mentation back to baseline. 3. Hypertension with chronic kidney disease. Stable. 4. Diabetes mellitus. 5. Volume overload. Pleural effusions noted on chest x-ray. 6. Chronic kidney disease mineral bone disease. Phosphorus 6.0 dated 01/13/2023. On Renvela. 7. Hypokalemia from diuretics and PD losses. Replaced. Also on potassium supplementation 8. Generalized debility. Plan: Continue current PD exchanges. Maintain regular bowel movements Encouraged increased oral intake
--- NOTE | 2023-01-20 12:06 | P.PN ---
Subjective Progress Note Date: 01/20/23 Principal diagnosis: Encephalitis Patient is a 72-year-old male with a past medical history significant for end-stage renal disease on peritoneal dialysis, also history of brain tumor resection followed by an episode of encephalitis about 10 years ago history provided by the son and did have a history of shingles, admitted to the hospital with mental status status changes and the patient was noticed to be hypothermic with initial concern for possible SBP On today's evaluation and that is 01/20/2023, the patient remains to be afebrile, the patient is awake and alert denies any headaches no chest pain or shortness of breath or cough no nausea no vomiting no abdominal pain or diarrhea Objective - Vital Signs Vital signs: Vital Signs Temp 97.8 F 01/20/23 10:05 Pulse 70 01/20/23 10:05 Resp 16 01/20/23 08:00 BP 116/70 01/20/23 10:05 Pulse Ox 97 01/20/23 08:00 FiO2 Intake & Output 01/19/23 01/20/23 01/20/23 18:59 06:59 18:59 Intake Total 433 Output Total 900 Balance 433 -900 Intake: Oral 433 Output: Urine 450 Post Void Residual 450 Other: Voiding Method Indwelling Catheter Urinal CAPD CAPD - Exam GENERAL DESCRIPTION: An elderly male lying in bed in no distress RESPIRATORY SYSTEM: Unlabored breathing , decreased breath sounds at bases HEART: S1 S2 regular rate and rhythm , ABDOMEN: Soft , no tenderness EXTREMITIES: No edema feet - Labs CBC & Chem 7: 01/19/23 07:15 01/19/23 07:15 Labs: Abnormal Lab Results - Last 24 Hours (Table) 01/19/23 01/19/23 01/19/23 Range/Units 11:44 16:18 20:04 POC Glucose (mg/dL) 184 H 163 H 247 H (70-110) mg/dL 01/20/23 Range/Units 05:56 POC Glucose (mg/dL) 171 H (70-110) mg/dL Microbiology - Last 24 Hours (Table) 01/15/23 08:10 Blood Culture - Preliminary Blood Assessment and Plan (1) AMS (altered mental status) Current Visit: Yes Status: Acute Code(s): R41.82 - ALTERED MENTAL STATUS, UNSPECIFIED SNOMED Code(s): 448943751 (2) Febrile illness, acute Current Visit: No Status: Acute Code(s): R50.9 - FEVER, UNSPECIFIED SNOMED Code(s): 112109007 Plan: 1patient presented to hospital with sepsis in this patient with hypothermia hypotension did have leukopenia concern for possible SBP as no other obvious focus of infection chest x-ray is mostly pulmonary vascular congestion, clinically doubt encephalitis initially as the patient was awake alert oriented 3 yesterday and denied any headache, the patient peritoneal fluid came back negative and now with worsening of his mentation and a previous history of encephalitis ideally would have also for LP however the patient is on Eliquis, and high risk of bleeding 2--with a negative peritoneal fluid culture , Rocephin has been discontinued, patient doing well off antibiotic at this point 3-positive blood culture with staph epi likely skin contamination, repeat cultures so far negative 4-patient did have some clinical improvement plan is to continue the patient on IV acyclovir while inpatient, however will be able to finish therapy with oral Valtrex 500 mg daily for 2 weeks and close outpatient follow-up Time with Patient: Less than 30
--- NOTE | 2023-01-20 12:55 | P.PN ---
Subjective Progress Note Date: 01/19/23 HISTORY OF PRESENT ILLNESS: this is a 72-year-old male with a previous medical history significant for h ypertension and hypertensive cardiovascular disease with left ventricular hypertrophy, hyperlipidemia, diabetes mellitus type 2, with diabetic polyneuropathy, history of coronary artery disease status post coronary artery bypass graft x3 followed by stent, history of atrial fibrillation status post ablation on long-term eliquis, history of meningioma status post resection back in April 2013 with left-sided weakness, end-stage renal disease on peritoneal dialysis, history of anemia of chronic kidney disease, history of secondary hyperparathyroidism,history of breast cancer on the right side status post right mastectomy followed by chemotherapy, patient was recently evaluated at the emergency department at [facility] on 01/04/2023 after he was found to have a right-sided Arguelles's palsy associated with a recent zoster and top located, at that time the patient was found to be somewhat hyponatremic, he was started on Famvir 500 mg orally twice every day for 7 days, and he was sent to my office I saw the patient in the office last Thursday and he was doing fine, I added a small dose of dexamethasone 0.75 mg orally twice every day for 5 days, patient was doing fine up until today in the morning when his was checking on him to do his peritoneal dialysis and he was barely responsive, therefore she contacted the EMS and was brought into the ER for evaluation patient was having a minimal leukocytosis, and he was also found to have hypothermia, he had a warming blanket, and the because of the prior presentation to rule out any varicella-zoster encephalitis he was started immediately on Acyclovir IV piggyback and infectious disease consultation was obtained along with nephrology consultation for peritoneal dialysis 01/13: Patient has been seen by infectious disease concerning for possible spontaneous bacterial peritonitis as no other source of infection was noted. Doubt encephalitis. Patient is continued on Rocephin and acyclovir was discontinued but because patient's mental sstatus has worsened, Dr. Ruiz is planning to restart antiviral. Peritoneal fluid culture is in progress. Blood culture is status post received. Patient has been seen and followed by mihai wagner for toxic metabolic encephalopathy. The patient had a repeat CAT scan of the brain which revealed no acute hemorrhage or mass effect. There is degenerative and nonspecific white matter changes most typical of remote ischemia. Carotid ultrasound revealed 50-69% stenosis of the right carotid bifurcation. Less than 50% stenosis of the left carotid bifurcation. EEG was abnormal Be seen with toxic metabolic encephalopathy or related to diffuse structural brain abnormality. Rare sharply controlled waves over the right parietal region did not clearly appear epileptiform but may suggest underlying cortical irritability. Clinical correlation with prolonged EEG recommended which is being done today. MRI of the brain has also been ordered by neurology. Patient has also been seen by nephrology for end-stage renal disease. Patient is continued on PD exchanges although solutions have been modified. Nephrology is changed furosemide to 40 mg once daily and discontinued Zaroxolyn. Telemetry is sinus rhythm with first-degree block. Temperature is up to 97.5. Heart rate is in the 70s and blood pressure 102/62, pulse ox 95% on room air. Patient has used CPAP during the night. Repeat blood work has been ordered for tomorrow. 01/14: Patient is seen and followed by nephrology and continued on CAPD, Renvela added. A prolonged EEG was performed yesterday as ordered by neurology. Report cannot exclude epileptiform focus in the right parietal region. Patient has been started on IV Keppra. MRI of the brain was also ordered but due to patient having [place] filter this needs to be cleared. Acyclovir has been resumed by infectious disease and patient is continued on ceftriaxone. Temperature 97.4, heart rate in the 60s and 70s, blood pressure 130/67, pulse ox 96% on 2 L nasal cannula. Repeat blood work reveals WBC of 4, hemoglobin 10.7, sodium 132, potassium 3.4, chloride 95, CO2 23, BUN 43 creatinine 4.22. Magnesium 2.2 and liver function tests normal. Consult PT and OT. 01/15: Patient is laying down in bed appears to be tired, not conversing very well, his was at the bedside, patient is not eating as much today, he complains of increased swelling in both lower extremity especially the left lower extremity, will obtain venous Doppler to rule out any acute abnormalities, we will continue to monitor the patient very closely, we will add Nepro for protein supplementation, patient continues to get his peritoneal dialysis, patient is debilitated, he continues to be on acyclovir along with Keppra as per neurology consultation due to possible seizure disorder. 01/16: Patient family requested that the patient come off the Keppra we'll discuss with neurology as the patient is getting more drowsy with the Keppra this point in time, we'll continue to monitor the patient very closely, presumably we are treated the patient with viral encephalitis, he has been responding to a psychiatric unit 500 mg IV piggyback every 24 hours, we will continue with Nepro twice every day, continue with physical therapy, we will check ultrasound of the left lower extremity to rule out any DVT, patient's prognosis continues to be guarded this point in time. 01/19: Patient is seen today in follow-up. He has been followed by multiple consultants and no significant changes over the weekend. He continues to be followed by nephrology, infectious disease, neurology. He has a Gary catheter in which we will plan for this to be discontinued today and monitor for urinary retention. Patient is been afebrile, heart rate in 60s, blood pressure 130/75, pulse ox 99% on 3 L nasal cannula. Blood work reveals WBC 4.6, hemoglobin 8.4, platelet count 121. Sodium 135, potassium 3.6, BUN 35 creatinine 3.46. Liver function tests are within normal limits. Plan is to monitor patient overnight and plan for discharge home tomorrow REVIEW OF SYSTEMS: Constitutional: No documented fever, no chills, no night sweats. No weight change. positive for weakness, fatigue or lethargy. No daytime sleepiness. HEENT: No headache. right eye blind or double vision, no loss of vision. No loss of Hearing, no ringing in the ears, no dizziness. No nasal drainage or congestion. No epistaxis. No sore throat. Lungs: positive for shortness of breath, no cough, no sputum production. No wheezing. Reports dyspnea with activity. Cardiovascular: No chest pain, reported lower extremity edema. No palpitations. Reported paroxysmal nocturnal dyspnea. Reports orthopnea. No lightheadedness or dizziness. No syncopal episodes. Abdominal: Reports no abdominal pain. positive for nausea, vomiting. Reports occasional diarrhea. No constipation. No bloody or tarry stools reports loss of appetite. Genitourinary: No dysuria, increased frequency, urgency. Noted urinary retention. Musculoskeletal: No myalgias. positive for chronic left sided weakness, positive for gait dysfunction, no frequent falls. positive for back pain. positive for neck pain. Integumentary: right mastectomy incision is clean with LUISITO in place no lesions. No rash or pruritus. No unusual bruising. No change in hair or nails. Neurologic: No aphasia. No facial droop. Noted change in mentation. No head i njury. No headache, positive for left sided weakness and left foot drop. Psychiatric: positive for depression. No anxiety. No mood swings. Endocrine: No abnormal blood sugars. No weight change. PHYSICAL EXAMINATION: General: this is a 72-year-old male who is lying down in bed in bed appears to be in no respiratory distress at rest. HEENT: Head is atraumatic, normocephalic, pupils were equal round reactive to light and recommendation, extraocular muscle movement were intact, sclera nonic teric, conjunctivae were pale, mucous membranes of the mouth are somewhat dry. Neck: Supple, no JVP, normal carotid upstroke bilaterally, no lymphadenopathy. Chest: Decreased breath sounds at the bases few rhonchi, no expiratory wheezes, no chest wall tenderness, no intercostal retractions. Heart: First heart sound is normal, second heart sounds normal, irregularly irregular, there is systolic ejection murmur 2/6 located in the left sternal border. Abdomen: Soft, nontender, nondistended, positive bowel sounds, positive for PD catheter Extremities: There is +2 edema to the bilateral lower extremities left greater than right no calf tenderness DP +2 bilaterally. Neurologic examination: Patient is awake alert and oriented X3 , cranial nerves II-12 appear grossly intact, there is left-sided weakness with left foot drop. ASSESSMENT AND PLAN: 1. Metabolic encephalopathy multifactorial rule out varicella-zoster encephalitis or HSV encephalitis, cannot rule out seizure. continue the patient on Acyclovir 500 mg IV piggyback every 24 hours, infectious disease consultation appreciated, blood cultures, urine culture, follow-up with the patient. Patient to continue on acyclovir until time of discharge. Infectious disease Keppra discontinued as per neurology recommendations and start patient on Vimpat if any signs of seizure activity.. 2. 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 Continue treatment with acyclovir for now 3. Right-sided pleural effusion with compressive atelectasis rule out pneumonia. Discontinue antibiotics 4. leukocytosis likely related to recent dexamethasone use. Rule out sepsis. 6. History of CAD post CABG as well as PCI and stent placement. Continue patient on metoprolol XL 25 mg once every day, pravastatin 40 mg at bedtime. 7. History of paroxysmal atrial fibrillation. Continue patient on Eliquis 5 mg orally twice every day, continue amiodarone 100 mg orally once every day, metoprolol XL 25 mg orally once every day. 8. Hypertension and hypertensive cardiovascular disease. Continue patient on amlodipine 5 mg once every day, continue with metoprolol ER 25 mg orally once every day, monitor the patient blood pressure very closely. 9. Hyperlipidemia. Continue patient on pravastatin 40 mg at bedtime, monitor lipid panel, keep LDL 55-70. 10. End-stage renal disease on CAPD. 11. History of enlarged prostate. Continue Flomax 0.4 mg once every day, monitor for urinary retention. 12. Diabetes mellitus type 2. Continue Lantus 35 units at bedtime, monitor the patient blood glucose level and at bedtime with NovoLog scale 13. Diabetic polyneuropathy. Stable. 14. History of DVT status post IVC filter placement, continue with Eliquis 5 mg orally twice every day. 15. Chronic gout. Continue patient on allopurinol 100 mg orally once every day. 16. History of meningioma with left-sided weakness. Physical therapy evaluation. 17. Protein calorie meditation. Continue patient on Nepro twice every day. 18. Possible seizure disorder. Neurology is following. patient was taken off Keppra this time. 19. Left lower extremity edema we will check venous doppler of both lower extremities 20. Guarded Prognosis Impression and plan of care have been directed as dictated by the signing physician. Nita Linn nurse practitioner acting as scribe for signing physician. Objective - Vital Signs Vital signs: Vital Signs Temp 98.2 F 01/19/23 11:33 Pulse 64 01/19/23 11:33 Resp 16 01/19/23 11:33 BP 126/61 01/19/23 11:33 Pulse Ox 93 L 01/19/23 11:33 FiO2 Intake & Output 01/18/23 01/19/23 01/19/23 18:59 06:59 18:59 Intake Total 540 160 315 Output Total 300 125 Balance 240 35 315 Intake: IV 160 0.9 160 Oral 540 315 Output: Urine 300 125 Other: Voiding Method Indwelling Catheter Indwelling Catheter Indwelling Catheter CAPD CAPD CAPD - Labs CBC & Chem 7: 01/19/23 07:15 01/19/23 07:15 Labs: Abnormal Lab Results - Last 24 Hours (Table) 01/18/23 01/18/23 01/19/23 Range/Units 16:18 20:10 06:01 RBC (4.30-5.90) m/uL Hgb (13.0-17.5) gm/dL Hct (39.0-53.0) % RDW (11.5-15.5) % Plt Count (150-450) k/uL Lymphocytes # (1.0-4.8) k/uL Sodium (137-145) mmol/L BUN (9-20) mg/dL Creatinine (0.66-1.25) mg/dL Glucose (74-99) mg/dL POC Glucose (mg/dL) 218 H 279 H 183 H (70-110) mg/dL Total Protein (6.3-8.2) g/dL Albumin (3.5-5.0) g/dL 01/19/23 01/19/23 01/19/23 Range/Units 07:15 07:15 11:44 RBC 2.75 L (4.30-5.90) m/uL Hgb 8.4 L (13.0-17.5) gm/dL Hct 25.5 L (39.0-53.0) % RDW 21.0 H (11.5-15.5) % Plt Count 121 L (150-450) k/uL Lymphocytes # 0.3 L (1.0-4.8) k/uL Sodium 135 L (137-145) mmol/L BUN 45 H (9-20) mg/dL Creatinine 3.46 H (0.66-1.25) mg/dL Glucose 159 H (74-99) mg/dL POC Glucose (mg/dL) 184 H (70-110) mg/dL Total Protein 4.7 L (6.3-8.2) g/dL Albumin 2.7 L (3.5-5.0) g/dL Microbiology - Last 24 Hours (Table) 01/15/23 08:10 Blood Culture - Preliminary Blood
--- NOTE | 2023-01-20 13:00 | P.DS ---
Providers Date of admission: 01/12/23 10:47 Expected date of discharge: 01/20/23 Attending physician: Pablo Jon Consults: 01/12/23 10:46 Consult Physician Routine Consulting Provider: Camacho Mariee Consult Reason/Comments: AMS Do you want consulting provider notified?: Yes Consult Physician Routine Consulting Provider: Vanessa Ruiz Consult Reason/Comments: AMS, Sepsis Do you want consulting provider notified?: Yes 01/12/23 11:27 Consult Physician Routine Consulting Provider: Yin Campos Consult Reason/Comments: peritoneal dialysis Do you want consulting provider notified?: Yes Primary care physician: Pablo Jon [facility] Course: HISTORY OF PRESENT ILLNESS: this is a 72-year-old male with a previous medical history significant for hypertension and hypertensive cardiovascular disease with left ventricular hypertrophy, hyperlipidemia, diabetes mellitus type 2, with diabetic polyneuropathy, history of coronary artery disease status post coronary artery bypass graft x3 followed by stent, history of atrial fibrillation status post ablation on long-term eliquis, history of meningioma status post resection back in April 2013 with left-sided weakness, end-stage renal disease on peritoneal dialysis, history of anemia of chronic kidney disease, history of secondary hyperparathyroidism,history of breast cancer on the right side status post right mastectomy followed by chemotherapy, patient was recently evaluated at the emergency department at [facility] on 01/04/2023 after he was found to have a right-sided Arguelles's palsy associated with a recent zoster and top located, at that time the patient was found to be somewhat hyponatremic, he was started on Famvir 500 mg orally twice every day for 7 days, and he was sent to my office I saw the patient in the office last Thursday and he was doing fine, I added a small dose of dexamethasone 0.75 mg orally twice every day for 5 days, patient was doing fine up until today in the morning when his was checking on him to do his peritoneal dialysis and he was barely responsive, therefore she contacted the EMS and was brought into the ER for evaluation patient was having a minimal leukocytosis, and he was also found to have hypothermia, he had a warming blanket, and the because of the prior presentation to rule out any varicella-zoster encephalitis he was started immediately on Acyclovir IV pi ggyblester and infectious disease consultation was obtained along with nephrology consultation for peritoneal dialysis 01/13: Patient has been seen by infectious disease concerning for possible spontaneous bacterial peritonitis as no other source of infection was noted. Doubt encephalitis. Patient is continued on Rocephin and acyclovir was discontinued but because patient's mental sstatus has worsened, Dr. Ruiz is planning to restart antiviral. Peritoneal fluid culture is in progress. Blood culture is status post received. Patient has been seen and followed by neurology for toxic metabolic encephalopathy. The patient had a repeat CAT scan of the brain which revealed no acute hemorrhage or mass effect. There is degenerative and nonspecific white matter changes most typical of remote isch emia. Carotid ultrasound revealed 50-69% stenosis of the right carotid bifurcation. Less than 50% stenosis of the left carotid bifurcation. EEG was abnormal Be seen with toxic metabolic encephalopathy or related to diffuse structural brain abnormality. Rare sharply controlled waves over the right parietal region did not clearly appear epileptiform but may suggest underlying cortical irritability. Clinical correlation with prolonged EEG recommended which is being done today. MRI of the brain has also been ordered by neurology. Patient has also been seen by nephrology for end-stage renal disease. Patient is continued on PD exchanges although solutions have been modified. Nephrology is changed furosemide to 40 mg once daily and discontinued Zaroxolyn. Telemetry is sinus rhythm with first-degree block. Temperature is up to 97.5. Heart rate is in the 70s and blood pressure 102/62, pulse ox 95% on room air. Patient has used CPAP during the night. Repeat blood work has been ordered for tomorrow. 01/14: Patient is seen and followed by nephrology and continued on CAPD, Renvela added. A prolonged EEG was performed yesterday as ordered by neurology. Report cannot exclude epileptiform focus in the right parietal region. Patient has been started on IV Keppra. MRI of the brain was also ordered but due to patient having [place] filter this needs to be cleared. Acyclovir has been resumed by infectious disease and patient is continued on ceftriaxone. Temperature 97.4, heart rate in the 60s and 70s, blood pressure 130/67, pulse ox 96% on 2 L nasal cannula. Repeat blood work reveals WBC of 4, hemoglobin 10.7, sodium 132, potassium 3.4, chloride 95, CO2 23, BUN 43 creatinine 4.22. Magnesium 2.2 and liver function tests normal. Consult PT and OT. 01/15: Patient is laying down in bed appears to be tired, not conversing very well, his was at the bedside, patient is not eating as much today, he complains of increased swelling in both lower extremity especially the left lower extremity, will obtain venous Doppler to rule out any acute abnormalities, we will continue to monitor the patient very closely, we will add Nepro for protein supplementation, patient continues to get his peritoneal dialysis, patient is debilitated, he continues to be on acyclovir along with Keppra as per neurology consultation due to possible seizure disorder. 01/16: Patient family requested that the patient come off the Keppra we'll discuss with neurology as the patient is getting more drowsy with the Keppra this point in time, we'll continue to monitor the patient very closely, presumably we are treated the patient with viral encephalitis, he has been responding to a psychiatric unit 500 mg IV piggyback every 24 hours, we will continue with Nepro twice every day, continue with physical therapy, we will check ultrasound of the left lower extremity to rule out any DVT, patient's prognosis continues to be guarded this point in time. 01/19: Patient is seen today in follow-up. He has been followed by multiple consultants and no significant changes over the weekend. He continues to be followed by nephrology, infectious disease, neurology. He has a Gary catheter in which we will plan for this to be discontinued today and monitor for urinary retention. Patient is been afebrile, heart rate in 60s, blood pressure 130/75, pulse ox 99% on 3 L nasal cannula. Blood work reveals WBC 4.6, hemoglobin 8.4, platelet count 121. Sodium 135, potassium 3.6, BUN 35 creatinine 3.46. Liver function tests are within normal limits. Plan is to monitor patient overnight and plan for discharge home tomorrow 01/20: Patient required replacement of Gary catheter to urinary retention. No new concerns from the patient or his . Patient's is concerned about the Gary catheter would prefer a shunt not to have this. Patient is on Flomax or 0.4 mg twice daily. At this time, they have refused home care but may reconsider with Gary catheter care and monitoring for retention. Patient remains afebrile, heart rate 70, blood pressure 128/61, pulse ox 96% on room air. Capillary blood glucose running between 163 and 247. Discharge plan is to return home. Patient will be discharged home today in stable condition. DISCHARGE DIAGNOSES: 1. Metabolic encephalopathy multifactorial continue antiviral for possible viral encephalitis 2. 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 3. Right-sided pleural effusion with compressive atelectasis rule out pneumonia. 4. leukocytosis likely related to recent dexamethasone use. 6. History of CAD post CABG as well as PCI and stent placement. 7. History of paroxysmal atrial fibrillation. 8. Hypertension and hypertensive cardiovascular disease. 9. Hyperlipidemia. 10. End-stage renal disease on CAPD. 11. History of enlarged prostate. 12. Diabetes mellitus type 2. 13. Diabetic polyneuropathy. 14. History of DVT status post IVC filter placement. 15. Chronic gout. 16. History of meningioma with left-sided weakness. 17. Protein calorie meditation, moderate. 18. Possible seizure disorder not completely ruled out. 19. Left lower extremity edema Discharge plan: Home Greater than 35 minutes was utilized and coordinating patient's discharge. Impression and plan of care have been directed as dictated by the signing physician. Nita Linn nurse practitioner acting as scribe for signing physician. Patient Condition at Discharge: Serious Plan - Discharge Summary Discharge Rx Participant: No New Discharge Prescriptions: New Sevelamer [Renvela] 800 mg PO TID-W/MEALS #90 tab valACYclovir HCL [Valtrex] 500 mg PO BID #28 tab Continue Tamsulosin HCl [Flomax] 0.4 mg PO BID amLODIPine [Norvasc] 5 mg PO BID hydrALAZINE HCL [Apresoline] 50 mg PO BID Pravastatin Sodium [Pravachol] 40 mg PO HS allopurinoL [Zyloprim] 100 mg PO DAILY Amiodarone [Cordarone] 200 mg PO DAILY Lidocaine-Prilocaine Cream [Emla Cream 2.5%/2.5%] 1 applic TOPICAL DAILY PRN PRN Reason: port access INSULIN ASPART (NovoLOG) [NovoLOG (formulary)] See Protocol SQ ACHS PRN PRN Reason: HIGH BLOOD SUGAR Insulin Glargine,Hum.rec.anlog [Lantus Solostar Pen] 35 units SQ HS Torsemide [Demadex] 20 mg PO BID Metoprolol Succinate (ER) [Toprol XL] 25 mg PO DAILY Potassium Chloride ER [K-Dur 20] 20 meq PO DAILY Lactulose 10 gm PO DAILY PRN PRN Reason: Constipation Apixaban [Eliquis] 5 mg PO DAILY Exemestane [Aromasin] 25 mg PO DAILY Famciclovir [Famvir] 500 mg PO Q12HR #14 tablet Discontinued metOLazone [Zaroxolyn] 5 mg PO DAILY Discharge Medication List Tamsulosin HCl [Flomax] 0.4 mg PO BID 06/19/15 [History] amLODIPine [Norvasc] 5 mg PO BID 07/09/16 [History] Pravastatin Sodium [Pravachol] 40 mg PO HS 03/21/21 [History] allopurinoL [Zyloprim] 100 mg PO DAILY 03/21/21 [History] hydrALAZINE HCL [Apresoline] 50 mg PO BID 03/21/21 [History] Amiodarone [Cordarone] 200 mg PO DAILY 02/07/22 [History] Metoprolol Succinate (ER) [Toprol XL] 25 mg PO DAILY 02/07/22 [History] Lidocaine-Prilocaine Cream [Emla Cream 2.5%/2.5%] 1 applic TOPICAL DAILY PRN 06/03/22 [History] INSULIN ASPART (NovoLOG) [NovoLOG (formulary)] See Protocol SQ ACHS PRN 07/31/22 [History] Insulin Glargine,Hum.rec.anlog [Lantus Solostar Pen] 35 units SQ HS 09/17/22 [History] Torsemide [Demadex] 20 mg PO BID 09/17/22 [History] Apixaban [Eliquis] 5 mg PO DAILY 01/04/23 [History] Exemestane [Aromasin] 25 mg PO DAILY 01/04/23 [History] Famciclovir [Famvir] 500 mg PO Q12HR #14 tablet 01/04/23 [Rx] Lactulose 10 gm PO DAILY PRN 01/04/23 [History] Potassium Chloride ER [K-Dur 20] 20 meq PO DAILY 01/04/23 [History] Sevelamer [Renvela] 800 mg PO TID-W/MEALS #90 tab 01/20/23 [Rx] valACYclovir HCL [Valtrex] 500 mg PO BID #28 tab 01/20/23 [Rx] Follow up Appointment(s)/Referral(s): Yin Campos MD [STAFF PHYSICIAN] - 3 Weeks Pablo Jon MD [Primary Care Provider] - 1 Week Discharge Disposition: HOME SELF-CARE
[2023-01-20] MEDS: ACETAMINOPHEN TAB 325 MG TAB PO PRN (13:58)
[2023-01-20] MEDS: ACYCLOVIR SODIUM 500 MG in SODIUM CHLORIDE 0.9% 100 ML IVPB SCH (15:39)
== END 2023-01-20 16:30 | disposition home health service (06) | DRG 97 ==
LOC: EC 08:48 → 3SCARD 10:47
PROVIDERS: ADMIT Internal Medicine; ATTEND Internal Medicine
PROC: 3E1M39Z Irrigation of Peritoneal Cavity using Dialysate, Percutaneous Approach (ICD-10-PCS; principal; 2023-01-12)
PROC: 5A09457 Assistance with Respiratory Ventilation, 24-96 Consecutive Hours, Continuous Positive Airway Pressure (ICD-10-PCS; 2023-01-12)
DX: A86 Unspecified viral encephalitis (principal); N18.6 End stage renal disease; D61.818 Other pancytopenia; E44.0 Moderate protein-calorie malnutrition; N25.81 Secondary hyperparathyroidism of renal origin; I13.11 Hypertensive heart and chronic kidney disease without heart failure, with stage 5 chronic kidney disease, or end stage renal disease; J90 Pleural effusion, not elsewhere classified; E87.1 Hypo-osmolality and hyponatremia; I48.92 Unspecified atrial flutter; J98.11 Atelectasis; G92.8 Other toxic encephalopathy; E83.9 Disorder of mineral metabolism, unspecified; D63.1 Anemia in chronic kidney disease; E11.22 Type 2 diabetes mellitus with diabetic chronic kidney disease; E11.42 Type 2 diabetes mellitus with diabetic polyneuropathy; I48.0 Paroxysmal atrial fibrillation; Z99.2 Dependence on renal dialysis; Z79.4 Long term (current) use of insulin; Z20.822 Contact with and (suspected) exposure to COVID-19; Z28.310 Unvaccinated for COVID-19; I95.9 Hypotension, unspecified; G93.89 Other specified disorders of brain; R56.9 Unspecified convulsions; E78.5 Hyperlipidemia, unspecified; E87.6 Hypokalemia; G47.30 Sleep apnea, unspecified; I44.0 Atrioventricular block, first degree; M1A.9XX0 Chronic gout, unspecified, without tophus (tophi); H54.61 Unqualified visual loss, right eye, normal vision left eye; I25.2 Old myocardial infarction; I25.10 Atherosclerotic heart disease of native coronary artery without angina pectoris; G51.0 Bell's palsy; T50.2X5A Adverse effect of carbonic-anhydrase inhibitors, benzothiadiazides and other diuretics, initial encounter; D72.829 Elevated white blood cell count, unspecified; T38.0X5A Adverse effect of glucocorticoids and synthetic analogues, initial encounter; E87.70 Fluid overload, unspecified; I65.23 Occlusion and stenosis of bilateral carotid arteries; N40.1 Benign prostatic hyperplasia with lower urinary tract symptoms; R33.8 Other retention of urine; F32.A Depression, unspecified; K21.9 Gastro-esophageal reflux disease without esophagitis; M19.90 Unspecified osteoarthritis, unspecified site; E66.9 Obesity, unspecified; Z68.33 Body mass index [BMI] 33.0-33.9, adult; R68.0 Hypothermia, not associated with low environmental temperature; R53.1 Weakness; Z68.31 Body mass index [BMI] 31.0-31.9, adult; Z79.01 Long term (current) use of anticoagulants; Z79.811 Long term (current) use of aromatase inhibitors; Z79.899 Other long term (current) drug therapy; Z95.828 Presence of other vascular implants and grafts; Z95.1 Presence of aortocoronary bypass graft; Z95.5 Presence of coronary angioplasty implant and graft; Z86.718 Personal history of other venous thrombosis and embolism; Z86.19 Personal history of other infectious and parasitic diseases; Z86.011 Personal history of benign neoplasm of the brain; Z85.3 Personal history of malignant neoplasm of breast; Z86.61 Personal history of infections of the central nervous system; Z71.3 Dietary counseling and surveillance; Z99.3 Dependence on wheelchair; Z88.0 Allergy status to penicillin; Z88.8 Allergy status to other drugs, medicaments and biological substances
CPT/HCPCS: 36415; 70450; 71045; 71046; 74018; 80053; 81001; 82140; 82271; 82607; 82746; 83036; 83605; 83735; 84100; 84443; 84484; 85025; 85027; 85610; 85730; 86140; 86695; 86696; 86787; 87070; 87205; 87636; 89050; 93005; 93880; 93970; 94760; 95713; 95816; 96361; 96365; 96366; 96367; 99285

== ENCOUNTER → 2023-03-25 | Outpatient (CLI) | payer MEDICARE ==
[2023-03-26 00:32] LABS: Immunoglobulin M <35.0 mg/dL (40.0-280.0)
== END | disposition home or self-care (01) ==
LOC: LABWHC1 14:04
PROVIDERS: ATTEND Internal Medicine Nephrology
DX: N18.6 End stage renal disease (principal); C50.921 Malignant neoplasm of unspecified site of right male breast
CPT/HCPCS: 36415; 86334; 86335

== ENCOUNTER 2023-05-12 12:09 | Inpatient (IN) | payer MEDICARE ==
--- NOTE | 2023-05-12 12:28 | ED ---
Weakness HPI - General Chief complaint: Altered Mental Status Stated complaint: Weakness Time Seen by Provider: 05/12/23 12:18 Source: patient, RN notes reviewed, old records reviewed Mode of arrival: EMS Limitations: altered mental status, physical limitation - History of Present Illness Initial comments: This is a 72-year-old male to the emergency trauma today for evaluation persistent severe weakness patient's a poor historian somewhat somnolent to history of present illness but is alert answering questions. Family at bedside providing history of increased weakness for a few days to weeks. Patient doesn't do at home dialysis. Last hospitalization was 3-4 months ago and no other complaints currently eating and drinking diminished but still managing,no fevers MD Complaint: generalized weakness -: days(s) Location: generalized Severity: moderate Severity scale (1-10): 5 Consistency: constant Improves with: none Worsens with: none Context: recent illness, history of similar Associated Symptoms: denies other symptoms - Related Data Home Medications Medication Instructions Recorded Confirmed Tamsulosin HCl [Flomax] 0.4 mg PO BID 06/19/15 05/15/23 amLODIPine [Norvasc] 5 mg PO BID 07/09/16 05/15/23 Pravastatin Sodium [Pravachol] 40 mg PO HS 03/21/21 05/15/23 Lidocaine-Prilocaine Cream [Emla 1 applic TOPICAL DAILY PRN 06/03/22 05/15/23 Cream 2.5%/2.5%] INSULIN ASPART (NovoLOG) [NovoLOG See Protocol SQ ACHS PRN 07/31/22 05/15/23 (formulary)] Insulin Glargine,Hum.rec.anlog 35 units SQ HS 09/17/22 05/15/23 [Lantus Solostar Pen] Torsemide [Demadex] 20 mg PO BID 09/17/22 05/15/23 Apixaban [Eliquis] 5 mg PO DAILY 01/04/23 05/15/23 Lactulose 10 gm PO DAILY PRN 01/04/23 05/15/23 Ciclopirox Nail Lacquer 8% 1 applic TOPICAL DIRECTED 05/12/23 05/15/23 Furosemide [Lasix] 40 mg PO BID 05/12/23 05/15/23 Pramipexole [Mirapex] 0.25 mg PO HS PRN 05/12/23 05/15/23 Allergies Allergy/AdvReac Type Severity Reaction Status Date / Time Penicillins Allergy Unknown Rash/Hives Verified 05/15/23 16:19 adhesive AdvReac skin Verified 05/15/23 16:19 tears-paper tape is better but still will tear Review of Systems ROS Statement: Those systems with pertinent positive or pertinent negative responses have been documented in the HPI. ROS Other: All systems not noted in ROS Statement are negative. Past Medical History Past Medical History: Atrial Fibrillation, Atrial Flutter, Coronary Artery Disease (CAD), Cancer, Diabetes Mellitus, Deep Vein Thrombosis (DVT), Eye Disorder, GERD/Reflux, Hyperlipidemia, Hypertension, Myocardial Infarction ([place]), Neurologic Disorder, Osteoarthritis ([place]), Prostate Disorder, Renal Disease, Sleep Apnea/CPAP/BIPAP Additional Past Medical History / Comment(s): currently has Hemodialysis MWF-4 H rs-has port left shoulder., rt breast [place]-Spring 2021,Blind in right eye. Hx encephalopathy, meningioma with left sided weakness, cannot use left leg, wheelchair bound. PT CAN'T HAVE ANY VACCINES THAT ARE LIVE VIRUSES. PLEASE USE PAPER TAPE ONLY(PT HAS THIN SKIN). uses slide board at home to transfer pt to w/c, with 2 person assist pt can stand/pivot to chair,uses cpap, uses O2 @ 2l [place] prn Last Myocardial Infarction Date:: 02-11-2005 History of Any Multi-Drug Resistant Organisms: None Reported Past Surgical History: Adenoidectomy, Breast Surgery, Cardiac Ablation, Cholecystectomy, Coronary Bypass/CABG, Heart Catheterization With Stent, Orthopedic Surgery, Tonsillectomy Additional Past Surgical History / Comment(s): Triple bypass, Meningioma Removed from Brain 04/2013, peg tube- removed 9 years ago, DESTINEY FILTER, BILATERAL CATARACTS- LENS IMPLANTS, COLONOSCOPY/POLYPECTOMY, RIGHT KNEE ARTHROSCOPY, 07/21/22 right breast mastectomy Past Anesthesia/Blood Transfusion Reactions: No Reported Reaction Date of Last Stent Placement:: 2004 Past Psychological History: Depression Smoking Status: Never smoker - Past Family History Father History Unknown: Yes Family Medical History: Congestive Heart Failure (CHF) Mother History Unknown: Yes Additional Family Medical History / Comment(s): at age 90 General Exam Limitations: altered mental status General appearance: alert, in no apparent distress, anxious, lethargic, in distress Head exam: Present: atraumatic, normocephalic, normal inspection Eye exam: Present: normal appearance, PERRL, EOMI. Absent: scleral icterus, conjunctival injection, periorbital swelling ENT exam: Present: normal exam, mucous membranes moist Neck exam: Present: normal inspection. Absent: tenderness, meningismus, lymphadenopathy Respiratory exam: Present: respiratory distress, accessory muscle use, decreased breath sounds, prolonged expiratory. Absent: wheezes, rales, rhonchi, stridor Cardiovascular Exam: Present: bradycardia, normal heart sounds. Absent: systolic murmur, diastolic murmur, rubs, gallop, clicks GI/Abdominal exam: Present: soft, normal bowel sounds. Absent: distended, tenderness, guarding, rebound, rigid Extremities exam: Present: normal inspection, full ROM, normal capillary refill. Absent: tenderness, pedal edema, joint swelling, calf tenderness Back exam: Present: normal inspection Neurological exam: Present: alert, oriented X3, CN II-XII intact Psychiatric exam: Present: normal affect, normal mood Skin exam: Present: warm, dry, intact, normal color. Absent: rash Course Vital Signs 05/12/23 05/12/23 05/12/23 12:24 12:27 13:43 Temperature 98.2 F Pulse Rate 42 L 42 L 42 L Respiratory 20 16 18 Rate Blood Pressure 114/44 108/62 106/47 O2 Sat by Pulse 97 98 98 Oximetry 05/12/23 05/12/23 05/12/23 14:00 14:48 15:00 Temperature Pulse Rate 40 L 31 L 35 L Respiratory 18 18 Rate Blood Pressure 104/66 90/34 95/60 O2 Sat by Pulse 98 98 Oximetry 05/12/23 05/12/23 05/12/23 16:04 16:44 16:51 Temperature Pulse Rate 35 L 30 L 30 L Respiratory 20 20 20 Rate Blood Pressure 103/73 104/32 104/32 O2 Sat by Pulse 99 97 97 Oximetry - Reevaluation(s) Reevaluation #1: 05/12/23 14:59 Medical record is reviewed Reevaluation #2: 05/12/23 14:59 A shunt symptoms unchanged Reevaluation #3: 05/12/23 14:59 Patient informed results questions answered Reevaluation #4: 05/12/23 13:40 Was pt. sent in by a medical professional or institution (RENAE Glover, [employer], urgent care, hospital, or alf...) When possible be specific @ -no Did you speak to anyone other than the patient for history (EMS, parent, family, police, friend...)? What history was obtained from this source @ -no Did you review nursing and triage notes (agree or disagree)? Why? @ -agree Are old charts reviewed (outside hosp., previous admission, EMS record, old EKG, old radiological studies, urgent care reports/EKG's, alf records)? Report findings @ -yes Differential Diagnosis (chest pain, altered mental status, abdominal pain women, abdominal pain men, vaginal bleeding, weakness, fever, dyspnea, syncope, headache, dizziness, GI bleed, back pain, seizure, CVA, palpatations, mental health, musculoskeletal)? @ -prior EKG interpreted by me (3pts min.). @ -yes X-rays interpreted by me (1pt min.). @ -yes CT interpreted by me (1pt min.). @ -no U/S interpreted by me (1pt. min.). @ -no What testing was considered but not performed or refused? (CT, X-rays, U/S, labs)? Why? @ -none What meds were considered but not given or refused? Why? @ -none Did you discuss the management of the patient with other professionals (professionals i.e. RENAE Glover, [employer], lab, RT, psych nurse, social worker assistant, cuff setter overlock, teacher, real estate officer, pillowcase cutter)? Give summary @ -no Was smoking cessation discussed for >3mins.? @ -no Was critical care preformed (if so, how long)? @ -yes31 Were there social determinants of health that impacted care today? How? (Homelessness, low income, unemployed, alcoholism, drug addiction, transportation, low edu. Level, literacy, decrease access to med. care, alf, rehab)? @ -none Was there de-escalation of care discussed even if they declined (Discuss DNR or withdrawal of care, Hospice)? DNR status @ -no What co-morbidities impacted this encounter? (DM, HTN, Smoking, COPD, CAD, Cancer, CVA, ARF, Chemo, Hep., AIDS, mental health diagnosis, sleep apnea, morbid obesity)? @ -none Was patient admitted / discharged? Hospital course, mention meds given and route, prescriptions, significant lab abnormalities, going to OR and other pertinent info. @ - 72 male to the emergency department today for evaluation patient presents today for evaluation severe weakness altered mental status found of severely low hemoglobin and persistent bradycardia with soft blood pressures and CHF. Patient will be admitted for transfusion cardiology evaluation as well as nephrology regarding dialysis as he does at home. Patient does need dialysis daily Discharge Undiagnosed new problem with uncertain prognosis? @ -no Drug Therapy requiring intensive monitoring for toxicity (Heparin, Nitro, Insulin, Cardizem)? @ -no Were any procedures done? @ -no Diagnosis/symptom? @ -Bradycardia acute coronary syndrome anemia Acute, or Chronic, or Acute on Chronic? @ -Acute Uncomplicated (without systemic symptoms) or Complicated (systemic symptoms)? @ -Complicated Side effects of treatment? @ -no Exacerbation, Progression, or Severe Exacerbation? @ -exacerbation Poses a threat to life or bodily function? How? (Chest pain, USA, MT, pneumonia, PE, COPD, DKA, ARF, appy, cholecystitis, CVA, Diverticulitis, Homicidal, Suicidal, threat to staff... and all critical care pts) @ -yes with significant disease and hemodynamic and Reevaluation #5: 05/12/23 14:59 Differential Weakness: Hypoglycemia, shock, sepsis, hyponatremia, anemia, infection, MT, ETOH, adverse medicine reaction, overdose, stroke, this is not meant to be an all-inclusive list. - Consultations Consultation #1: Spoke with Dr. Jon who agrees to admit this patient EKG Findings - EKG Comments: EKG Findings:: EKG is A. fib 44 QRS 120 QTc 452 - EKG Results: EKG: interpreted by ERMD Medical Decision Making - Medical Decision Making 72 male to the emergency department today for evaluation patient presents today for evaluation severe weakness altered mental status found of severely low hemoglobin and persistent bradycardia with soft blood pressures and CHF. Patient will be admitted for transfusion cardiology evaluation as well as n ephrology regarding dialysis as he does at home. Nail dialysis daily - Lab Data Result diagrams: 05/15/23 05:28 05/15/23 05:20 Lab Results 05/12/23 05/12/23 05/12/23 Range/Units 12:27 12:27 12:27 WBC (3.8-10.6) k/uL RBC (4.30-5.90) m/uL Hgb (13.0-17.5) gm/dL Hct (39.0-53.0) % MCV (80.0-100.0) fL MCH (25.0-35.0) pg MCHC (31.0-37.0) g/dL RDW (11.5-15.5) % Plt Count (150-450) k/uL MPV Neutrophils % % Lymphocytes % % Monocytes % % Eosinophils % % Basophils % % Neutrophils # (1.3-7.7) k/uL Lymphocytes # (1.0-4.8) k/uL Monocytes # (0-1.0) k/uL Eosinophils # (0-0.7) k/uL Basophils # (0-0.2) k/uL Differential Comment Manual Slide Review Hypochromasia Poikilocytosis Anisocytosis PT 10.4 (9.0-12.0) sec INR 1.0 (<1.2) APTT 30.0 (22.0-30.0) sec Sodium 127 L (137-145) mmol/L Potassium 5.0 (3.5-5.1) mmol/L Chloride 91 L (98-107) mmol/L Carbon Dioxide 23 (22-30) mmol/L Anion Gap 13 mmol/L BUN 60 H (9-20) mg/dL Creatinine 5.58 H (0.66-1.25) mg/dL Est GFR (CKD-EPI)AfAm 11 (>60 ml/min/1.73 sqM) Est GFR (CKD-EPI)NonAf 9 (>60 ml/min/1.73 sqM) Glucose 147 H (74-99) mg/dL Calcium 9.4 (8.4-10.2) mg/dL Phosphorus (2.5-4.5) mg/dL Magnesium (1.6-2.3) mg/dL Total Bilirubin 0.2 (0.2-1.3) mg/dL AST 58 (17-59) U/L ALT 61 H (4-49) U/L Alkaline Phosphatase 90 (38-126) U/L Troponin I <0.012 (0.000-0.034) ng/mL Total Protein 4.7 L (6.3-8.2) g/dL Albumin 2.7 L (3.5-5.0) g/dL TSH (0.465-4.680) mIU/L Free T4 (0.78-2.19) ng/dL 05/12/23 05/12/23 05/12/23 Range/Units 12:27 12:27 12:37 WBC 1.2 L* (3.8-10.6) k/uL RBC 2.03 L (4.30-5.90) m/uL Hgb 5.6 L* (13.0-17.5) gm/dL Hct 17.8 L* (39.0-53.0) % MCV 87.8 (80.0-100.0) fL MCH 27.4 (25.0-35.0) pg MCHC 31.2 (31.0-37.0) g/dL RDW 20.0 H (11.5-15.5) % Plt Count 62 L D (150-450) k/uL MPV 11.0 Neutrophils % 79 % Lymphocytes % 12 % Monocytes % 4 % Eosinophils % 2 % Basophils % 0 % Neutrophils # 0.9 L (1.3-7.7) k/uL Lymphocytes # 0.1 L (1.0-4.8) k/uL Monocytes # 0.1 (0-1.0) k/uL Eosinophils # 0.0 (0-0.7) k/uL Basophils # 0.0 (0-0.2) k/uL Differential Comment Manual Slide Review Performed Hypochromasia Marked Poikilocytosis Slight Anisocytosis Slight PT (9.0-12.0) sec INR (<1.2) APTT (22.0-30.0) sec Sodium (137-145) mmol/L Potassium (3.5-5.1) mmol/L Chloride (98-107) mmol/L Carbon Dioxide (22-30) mmol/L Anion Gap mmol/L BUN (9-20) mg/dL Creatinine (0.66-1.25) mg/dL Est GFR (CKD-EPI)AfAm (>60 ml/min/1.73 sqM) Est GFR (CKD-EPI)NonAf (>60 ml/min/1.73 sqM) Glucose (74-99) mg/dL Calcium (8.4-10.2) mg/dL Phosphorus 6.7 H (2.5-4.5) mg/dL Magnesium 2.2 (1.6-2.3) mg/dL Total Bilirubin (0.2-1.3) mg/dL AST (17-59) U/L ALT (4-49) U/L Alkaline Phosphatase (38-126) U/L Troponin I (0.000-0.034) ng/mL Total Protein (6.3-8.2) g/dL Albumin (3.5-5.0) g/dL TSH 6.720 H (0.465-4.680) mIU/L Free T4 1.01 (0.78-2.19) ng/dL - EKG Data -: EKG Interpreted by Me Rate: bradycardia - Radiology Data Radiology results: report reviewed (Chest x-rays positive for CHF pulmonary edema and effusion), image reviewed Critical Care Time Critical Care Time: Yes Total Critical Care Time: 31 Disposition Clinical Impression: Delirium due to general medical condition, Anemia, Congestive heart failure, Palpitations, Acute kidney injury, Heart failure, Bradycardia, AMS (altered mental status), Chronic renal failure, Paroxysmal a-fib, HTN (hypertension), NSTEMI (non-ST elevated myocardial infarction), Shortness of breath, CKD (chronic kidney disease) Disposition: ADMITTED IP TO THIS [facility] Condition: Critical Is patient prescribed a controlled substance at d/c from ED?: No Time of Disposition: 15:00
[2023-05-12 12:56] LABS: Anisocytosis Slight; Basophils % (A) 0 %; Eosinophils % (A) 2 %; Hypochromasia Marked; Lymphocytes # (A) 0.1 k/uL (1.0-4.8); Lymphocytes % (A) 12 %; MCH 27.4 pg (25.0-35.0); MCHC 31.2 g/dL (31.0-37.0); MCV 87.8 fL (80.0-100.0); Monocytes # (A) 0.1 k/uL (0-1.0); Monocytes % (A) 4 %; Neutrophils # (A) 0.9 k/uL (1.3-7.7); Neutrophils % (A) 79 %; Poikilocytosis Slight; RBC 2.03 m/uL (4.30-5.90)
[2023-05-12 13:08] LABS: WBC 1.2 k/uL (3.8-10.6)
[2023-05-12 13:09] LABS: HCT 17.8 % (39.0-53.0); HGB 5.6 gm/dL (13.0-17.5)
[2023-05-12 13:15] LABS: ALT 61 U/L (4-49); AST 58 U/L (17-59); African American GFR (CKD) 11 (>60 ml/min/1.73 sqM); Albumin 2.7 g/dL (3.5-5.0); Alkaline Phosphatase 90 U/L (38-126); Anion Gap 13 mmol/L; Blood Urea Nitrogen 60 mg/dL (9-20); Calcium 9.4 mg/dL (8.4-10.2); Carbon Dioxide 23 mmol/L (22-30); Chloride 91 mmol/L (98-107); Glucose 147 mg/dL (74-99); Non-African American GFR(CKD) 9 (>60 ml/min/1.73 sqM); Sodium 127 mmol/L (137-145); Total Bilirubin 0.2 mg/dL (0.2-1.3); Total Protein 4.7 g/dL (6.3-8.2)
--- NOTE | 2023-05-12 13:33 | XR ---
EXAMINATION TYPE: XR chest 1V portable DATE OF EXAM: 05/12/2023 1:16 PM COMPARISON: Chest radiographs from 01/15/2023 TECHNIQUE: XR chest 1V portable Portable AP radiograph of the chest. CLINICAL INDICATION:Male, 72 years old with history of altered mental status; FINDINGS: Lungs/Pleura: Small to moderate right pleural effusion with associated atelectasis. No pneumothorax. Pulmonary vascularity: Pulmonary vascular congestion. Heart/mediastinum: Cardiomediastinal silhouette is enlarged and stable. Post CABG changes. Musculoskeletal: No acute osseous pathology. Midline sternotomy wires are noted and stable. IMPRESSION: Cardiomegaly, pulmonary vascular congestion and small to moderate right pleural effusion. Correlate w ith BNP for congestive heart failure.
[2023-05-12 13:35] LABS: Prothrombin Time 10.4 sec (9.0-12.0)
[2023-05-12 13:54] LABS: Platelet Count 62 k/uL (150-450)
[2023-05-12] MEDS ORDERED: NALOXONE 0.4 MG/ML 1 ML VIAL IV PRN (14:42)
[2023-05-12] MEDS ORDERED: MORPHINE SULFATE 4 MG/ML SYRINGE IV PRN (14:42)
[2023-05-12] MEDS ORDERED: ONDANSETRON 4 MG/2 ML VIAL IVP PRN (14:42)
[2023-05-12] MEDS: SODIUM CHLORIDE 0.9% 1,000 ML IV SCH (15:17)
[2023-05-12] MEDS: DOPamine DRIP 800 MG in DEXTROSE/WATER 1 250ML.BAG IV ONE (16:39)
[2023-05-12 17:13] LABS: Glucose,Whole Blood 227 mg/dL (70-110)
--- NOTE | 2023-05-12 17:27 | P.CRDCN ---
History of Present Illness Consult date: 05/12/23 History of present illness: History of Present Illness: The patient is a 72-year-old male with a known history of CAD, status post CABG, prior history of atrial fibrillation, end-stage renal disease on peritoneal dialysis, diabetes who presented because of progressive fatigue and weakness and bradycardia. In the emergency room he was noted to be bradycardic. The EKGs available to me shows atrial fibrillation with probable junctional rhythm at times with a rate in the 30-40. He has underwent CABG in 2004, his left ventricle systolic function has been preserved. He has chronic right-sided effusion. He has a prior history of breast cancer and has received chem otherapy. He also has a history of [id number] aortic stenosis. He denies any chest discomfort but he has been feeling progressively more fatigued with lack of energy over the last week or so. According to his his speech was not as good the last few days. He has no nausea or vomiting. His activity is very limited following encephalitis and surgery. He was started on IV dopamine in the emergency room with improvement in his rate. His blood pressure is on the low side but stable. He has a history of hypertension, hyperlipidemia and diabetes mellitus. He was noted to be severely anemic with a hemoglobin of 5.6 and evidence of pancytopenia. His troponin was less than 0.012. His left ventricle systolic function in the past has been preserved. Medications: Lasix 40 mg twice a day, Flomax, pravastatin 40 mg daily, insulin, amlodipine 5 mg twice a day, Eliquis 2.5 mg twice a day Review of Systems: Respiratory: He has dyspnea on exertion but no recent wheezing, cough GI: No nausea or vomiting . No history of peptic ulcer disease. No recent GI bleed. : He is on peritoneal dialysis. Nervous System: Lower extremities weakness, history of encephalitis and stroke and history of meningioma removal Physical Examination: 72-year-old male, alert, slow to answer, evidence of Arguelles's palsy ,Blood pressure 110/70, Heart rate 55 bpm on IV dopamine Head: Normocephalic. Eyes: Sclerae nonicteric. Neck: Good carotid upstroke, no bruit, no jugular venous distention. Lungs: Clear to auscultation anteriorly. Heart: Irregular rate and rhythm, S1-S2, no S3, no rub. Systolic ejection murmur 3/6 with a holosystolic murmur at the apex. Abdomen: Soft nontender, positive bowel sounds no organomegaly. Catheter in place Extremities: +1 edema, intact distal pulses. Labs: WBC 1.2, hemoglobin 5.6, platelets 62,000, BUN 60, creatinine 5.58, potassium 5.0. Troponin less than 0.012. Chest x-ray was evidence of right sided effusion EKG: Atrial fibrillation with slow ventricular response, secondary EKG suggestive of junctional rhythm Impression: 1. Progressive fatigue with bradycardia and severe anemia. The patient is not on negative chronotropic drugs. Depending on the progress of his rhythm he may require a permanent pacemaker. The patient has a history of atrial fibrillation in the past and has been anticoagulated. 2. Status post CABG with no evidence of acute ischemia 3. End-stage renal disease on peritoneal dialysis 4. Pancytopenia, new compared to old testing 5. History of diabetes 6. History of breast cancer status post chemotherapy 7. Chronic right-sided effusion 8. History of hyperlipidemia 9. History of DVT his IVC filter Plan: 1. Continue IV dopamine for now 2. Obtain an echocardiogram with Doppler 3. Obtain hematology consultation for evaluation of the pancytopenia 4. Depending on his heart rate response he may require permanent pacemaker 5. Hold anticoagulation for now 6. Restart statin 7. The findings were discussed with the patient and his . Depending on his progress further recommendations will be made, thank you for this consult we will follow with you. 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 Hx encephalopathy, meningioma with left sided weakness, cannot use left leg, wheelchair bound. PT CAN'T HAVE ANY VACCINES THAT ARE LIVE VIRUSES. PLEASE USE PAPER TAPE ONLY(PT HAS THIN SKIN). uses slide board at home to transfer pt to w/c, with 2 person assist pt can stand/pivot to chair,uses cpap, uses O2 @ 2l [place] prn Last Myocardial Infarction Date:: 02-11-2005 History of Any Multi-Drug Resistant Organisms: None Reported Past Surgical History: Adenoidectomy, Breast Surgery, Cardiac Ablation, Cholecystectomy, Coronary Bypass/CABG, Heart Catheterization With Stent, Orthopedic Surgery, Tonsillectomy Additional Past Surgical History / Comment(s): Triple bypass, Meningioma Removed from Brain 04/2013, peg tube- removed 9 years ago, DESTINEY FILTER, BILATERAL CATARACTS- LENS IMPLANTS, COLONOSCOPY/POLYPECTOMY, RIGHT KNEE ARTHROSCOPY, 07/21/22 right breast mastectomy Past Anesthesia/Blood Transfusion Reactions: No Reported Reaction Date of Last Stent Placement:: 2004 Past Psychological History: Depression Smoking Status: Never smoker - Past Family History Father History Unknown: Yes Family Medical History: Congestive Heart Failure (CHF) Mother History Unknown: Yes Additional Family Medical History / Comment(s): at age 90 Medications and Allergies Home Medications Medication Instructions Recorded Confirmed Type Tamsulosin HCl [Flomax] 0.4 mg PO BID 06/19/15 05/12/23 History amLODIPine [Norvasc] 5 mg PO BID 07/09/16 05/12/23 History Pravastatin Sodium [Pravachol] 40 mg PO HS 03/21/21 05/12/23 History Lidocaine-Prilocaine Cream [Emla 1 applic TOPICAL DAILY PRN 06/03/22 05/12/23 History Cream 2.5%/2.5%] INSULIN ASPART (NovoLOG) [NovoLOG See Protocol SQ ACHS PRN 07/31/22 05/12/23 History (formulary)] Insulin Glargine,Hum.rec.anlog 35 units SQ HS 09/17/22 05/12/23 History [Lantus Solostar Pen] Torsemide [Demadex] 20 mg PO BID 09/17/22 05/12/23 History Apixaban [Eliquis] 5 mg PO DAILY 01/04/23 05/12/23 History Lactulose 10 gm PO DAILY PRN 01/04/23 05/12/23 History Ciclopirox Nail Lacquer 8% 1 applic TOPICAL DIRECTED 05/12/23 05/12/23 History Furosemide [Lasix] 40 mg PO BID 05/12/23 05/12/23 History Pramipexole [Mirapex] 0.25 mg PO HS PRN 05/12/23 05/12/23 History Allergies Allergy/AdvReac Type Severity Reaction Status Date / Time Penicillins Allergy Unknown Rash/Hives Verified 05/12/23 15:22 adhesive AdvReac skin Verified 05/12/23 15:22 tears-paper tape is better but still will tear Physical Exam Vitals: Vital Signs Temp Pulse Resp BP Pulse Ox 05/12/23 16:51 30 L 20 104/32 97 05/12/23 16:44 30 L 20 104/32 97 05/12/23 16:04 35 L 20 103/73 99 05/12/23 15:00 35 L 18 95/60 98 05/12/23 14:48 31 L 90/34 05/12/23 14:00 40 L 18 104/66 98 05/12/23 13:43 42 L 18 106/47 98 05/12/23 12:27 42 L 16 108/62 98 05/12/23 12:24 98.2 F 42 L 20 114/44 97 Intake and Output 05/12/23 05/12/23 05/12/23 06:59 14:59 22:59 Other: Weight 97.522 kg Results 05/12/23 12:37 05/12/23 12:27 Cardiac Enzymes 05/12/23 05/12/23 Range/Units 12:27 12:27 AST 58 (17-59) U/L Troponin I <0.012 (0.000-0.034) ng/mL Coagulation 05/12/23 Range/Units 12:27 PT 10.4 (9.0-12.0) sec APTT 30.0 (22.0-30.0) sec CBC 05/12/23 Range/Units 12:37 WBC 1.2 L* (3.8-10.6) k/uL RBC 2.03 L (4.30-5.90) m/uL Hgb 5.6 L* (13.0-17.5) gm/dL Hct 17.8 L* (39.0-53.0) % Plt Count 62 L D (150-450) k/uL Comprehensive Metabolic Panel 05/12/23 Range/Units 12:27 Sodium 127 L (137-145) mmol/L Potassium 5.0 (3.5-5.1) mmol/L Chloride 91 L (98-107) mmol/L Carbon Dioxide 23 (22-30) mmol/L BUN 60 H (9-20) mg/dL Creatinine 5.58 H (0.66-1.25) mg/dL Glucose 147 H (74-99) mg/dL Calcium 9.4 (8.4-10.2) mg/dL AST 58 (17-59) U/L ALT 61 H (4-49) U/L Alkaline Phosphatase 90 (38-126) U/L Total Protein 4.7 L (6.3-8.2) g/dL Albumin 2.7 L (3.5-5.0) g/dL Current Medications Generic Name Dose Route Start Last Admin Trade Name Freq PRN Reason Stop Dose Admin Sodium Chloride 1,000 mls @ 20 mls/hr 05/12/23 14:45 05/12/23 15:17 Saline 0.9% IV 20 mls/hr .Q24H KENNEDI Administration Dopamine HCl/Dextrose 800 mg/ 250 mls @ 4.571 mls/hr 05/12/23 15:59 05/12/23 16:39 IV Solution IV 05/13/23 15:58 2.5 mcg/kg/min .Q24H ONE 4.571 mls/hr Administration Protocol 2.5 MCG/KG/MIN Morphine Sulfate 4 mg 05/12/23 14:42 05/12/23 16:02 Morphine Sulfate 4 Mg/Ml Syringe IV 4 mg Q4HR PRN Administration Severe Pain (Scale 7 to 10) Naloxone HCl 0.2 mg 05/12/23 14:42 Naloxone 0.4 Mg/Ml 1 Ml Vial IV Q2M PRN Opioid Reversal Ondansetron HCl 4 mg 05/12/23 14:42 Ondansetron 4 Mg/2 Ml Vial IVP Q8HR PRN Nausea And Vomiting Intake and Output 05/12/23 05/12/23 05/12/23 06:59 14:59 22:59 Other: Weight 97.522 kg Patient Weight 05/13/23 06:59 Weight 97.522 kg 05/12/23 12:37 05/12/23 12:27
[2023-05-12] MEDS ORDERED: PRAMIPEXOLE 0.25 MG TAB PO PRN (17:36)
[2023-05-12] MEDS ORDERED: LACTULOSE 20 GM/30 ML CUP PO PRN (17:36)
[2023-05-12] MEDS ORDERED: INSULIN ASPART (NovoLOG) 100 UNIT/ML VIAL SQ PRN (17:36)
[2023-05-12] MEDS ORDERED: DIALYSIS (PERIT 1.5%) 2,500 ML 37.5 G/2,500 ML BAG INTRAPERIT SCH (18:00)
[2023-05-12] MEDS: DIALYSIS (PERIT 1.5%) 2,000 ML 30 G/2,000 ML BAG INTRAPERIT SCH (18:26)
[2023-05-12 18:43] LABS: Magnesium 2.2 mg/dL (1.6-2.3); Phosphorus 6.7 mg/dL (2.5-4.5)
[2023-05-12] MEDS ORDERED: PRAVASTATIN SODIUM 40 MG TAB PO SCH (21:00)
[2023-05-12] MEDS ORDERED: INSULIN DETEMIR (LEVEMIR) 100 UNIT/ML SYR SQ SCH (21:00)
[2023-05-12 21:04] LABS: Glucose,Whole Blood 243 mg/dL (70-110)
[2023-05-12] MEDS: PRAVASTATIN SODIUM 40 MG TAB PO SCH (21:25)
[2023-05-12 22:20] LABS: T4, Free (Free Thyroxine) 1.01 ng/dL (0.78-2.19)
[2023-05-13] MEDS: DIALYSIS (PERIT 1.5%) 2,000 ML 30 G/2,000 ML BAG INTRAPERIT SCH ×4 (01:25→17:50)
--- NOTE | 2023-05-13 01:29 | CT ---
EXAMINATION TYPE: CT brain wo con DATE OF EXAM: 05/13/2023 HISTORY: CHANGE IN MENTAL STATUS CT DLP: 1173.4 mGycm. Automated Exposure Control for Dose Reduction was Utilized. TECHNIQUE: CT scan of the head is performed without contrast. COMPARISON: Prior CT January 15, 2023. FINDINGS: There is no acute intracranial hemorrhage or midline shift identified. There is mild to m oderate diffuse ventricular and sulcal prominence redemonstrated. There is mild low-attenuation in t he periventricular white matter redemonstrated. There is old infarct involving the central right occi pital lobe axial image 50 redemonstrated. Aneurysm clip right temporal lobe near axial image 25 redem onstrated. Right-sided superior craniotomy again seen. The globes are intact and the visualized sinus es are clear. IMPRESSION: No acute intracranial hemorrhage or midline shift. There is postsurgical change along w ith mild to moderate diffuse age-related cerebral atrophy and chronic small vessel ischemic change al blu with old right occipital lobe infarct are all redemonstrated. No significant change from prior.
--- NOTE | 2023-05-13 01:40 | P.CNPUL ---
History of Present Illness Consult date: 05/13/23 Requesting physician: Jose Martin Simeon Reason for consult: other (ICU management) Chief complaint: Weakness, slurred speech History of present illness: I am seeing this patient in new consultation today 05/13/2023 in the intensive care unit for multiple medical issues. Patient is a 72-year-old white male with past medical history significant for atrial fibrillation anticoagulated on Eliqu is, coronary artery disease with previous CABG and stenting, diabetes mellitus type 2, hyperlipidemia, hypertension, DVT, obstructive sleep apnea, end-stage renal disease with peritoneal dialysis, meningioma resection resulting in chronic left leg weakness, Arguelles's palsy with residual right-sided weakness, blind in his right eye, breast cancer status post chemotherapy and right-sided mastectomy July 2022. He had a recent hospital admission for suspected encephalitis Jan, 2023. Patient presented to the emergency room yesterday afternoon after his his noticed that he was not "acting right". He had slurred speech, generalized weakness, fatigue, lethargy. He's been progressively more weak over the last couple days. Denies any fevers, chills, myalgias, shortness of breath, cough, chest pain, abdominal pain, nausea or vomiting. Patient is technically a poor historian, and HPI is supplemented by his . On arrival to the emergency room, the patient was found to be bradycardic, with a heart rate of around 30-40 bpm. He was subsequently started on dopamine which is currently infusing at 2.5 mcg/kg/m. Heart rhythm is currently junctional bradycardia at a rate of 54 bpm. Blood pressure is normotensive. He is currently sitting up in bed, on 2 L/m nasal cannula, in no acute distress. SpO2 is 98%. He is hypothermic, and has the warming blanket on him. He is also severely pancytopenic on arrival. No reported acute blood loss mentioned. CBC shows WBC count of 1.2, hemoglobin 5.6, hematocrit 17.8, and platelets 62,000. Patient is finishing his second unit of PRBC transfusion. BMP on arrival shows sodium 127, potassium 5, chloride 91, serum bicarbonate 23, BUN 60, creatinine 5.58, glucose 147. Troponin less than 0.012. TSH 6.7 and free T4 1. Normal saline is infusing at 20 ML's per hour. Patient's peritoneal dialysis has been restarted. Patient is currently sitting up in bed, on 2 L/m nasal cannula, in no acute distress. Chest x-ray shows pulmonary vascular congestion with a chronic moderate sized right-sided pleural effusion. No obvious acute infiltrates or evidence of pneumonia. No obvious infectious source identified. Patient's overall prognosis is guarded related to above- mentioned comorbidities. Patient will be monitored in the intensive care unit. Review of Systems REVIEW OF SYSTEMS: CONSTITUTIONAL: Denies any recent significant weight loss or weight gain. Denies fever. EYES: Admits chronic right eye blindness. EARS, NOSE, MOUTH, THROAT: Denies headaches, denies sore throat. CARDIOVASCULAR: Denies chest pain, palpitations or syncopal episodes. RESPIRATORY: Denies shortness of breath, cough, congestion or hemoptysis. GASTROINTESTINAL: Denies change in appetite, abdominal pain, nausea and vomiting, or diarrhea GENITOURINARY: Denies hematuria, denies infections. MUSKULOSKELETAL: Denies pain, denies swelling. Admits chronic left lower extremity weakness INTEGUMENTARY: Denies rash, denies eczema. NEUROLOGICAL: Denies recent memory loss, no recent seizure activity. PSYCHIATRIC: Denies anxiety, denies depression. HEMATOLOGIC/LYMPHATIC: Admits chronic anemia, denies enlarged lymph node Past Medical History Past Medical History: Atrial Fibrillation, Atrial Flutter, Coronary Artery Disease (CAD), Cancer, Diabetes Mellitus, Deep Vein Thrombosis (DVT), Eye Disorder, GERD/Reflux, Hyperlipidemia, Hypertension, Myocardial Infarction ([place]), Neurologic Disorder, Osteoarthritis (OA), Prostate Disorder, Renal Disease, Sleep Apnea/CPAP/BIPAP Additional Past Medical History / Comment(s): currently has Hemodialysis MWF-4 Hrs-has port left shoulder., rt breast CA-Spring 2021,Blind in right eye. Hx encephalopathy, meningioma with left sided weakness, cannot use left leg, wheelchair bound. PT CAN'T HAVE ANY VACCINES THAT ARE LIVE VIRUSES. PLEASE USE PAPER TAPE ONLY(PT HAS THIN SKIN). uses slide board at home to transfer pt to w/c, with 2 person assist pt can stand/pivot to chair,uses cpap, uses O2 @ 2l [place] prn Last Myocardial Infarction Date:: 02-11-2005 History of Any Multi-Drug Resistant Organisms: None Reported Past Surgical History: Adenoidectomy, Breast Surgery, Cardiac Ablation, Cholecystectomy, Coronary Bypass/CABG, Heart Catheterization With Stent, Orthopedic Surgery, Tonsillectomy Additional Past Surgical History / Comment(s): Triple bypass, Meningioma Removed from Brain 04/2013, peg tube- removed 9 years ago, DESTINEY FILTER, BILATERAL CATARACTS- LENS IMPLANTS, COLONOSCOPY/POLYPECTOMY, RIGHT KNEE ARTHROSCOPY, 07/21/22 right breast mastectomy Past Anesthesia/Blood Transfusion Reactions: No Reported Reaction Date of Last Stent Placement:: 2004 Past Psychological History: Depression Smoking Status: Never smoker - Past Family History Father History Unknown: Yes Family Medical History: Congestive Heart Failure (CHF) Mother History Unknown: Yes Additional Family Medical History / Comment(s): at age 90 Medications and Allergies Home Medications Medication Instructions Recorded Confirmed Type Tamsulosin HCl [Flomax] 0.4 mg PO BID 06/19/15 05/12/23 History amLODIPine [Norvasc] 5 mg PO BID 07/09/16 05/12/23 History Pravastatin Sodium [Pravachol] 40 mg PO HS 03/21/21 05/12/23 History Lidocaine-Prilocaine Cream [Emla 1 applic TOPICAL DAILY PRN 06/03/22 05/12/23 History Cream 2.5%/2.5%] INSULIN ASPART (NovoLOG) [NovoLOG See Protocol SQ ACHS PRN 07/31/22 05/12/23 History (formulary)] Insulin Glargine,Hum.rec.anlog 35 units SQ HS 09/17/22 05/12/23 History [Lantus Solostar Pen] Torsemide [Demadex] 20 mg PO BID 09/17/22 05/12/23 History Apixaban [Eliquis] 5 mg PO DAILY 01/04/23 05/12/23 History Lactulose 10 gm PO DAILY PRN 01/04/23 05/12/23 History Ciclopirox Nail Lacquer 8% 1 applic TOPICAL DIRECTED 05/12/23 05/12/23 History Furosemide [Lasix] 40 mg PO BID 05/12/23 05/12/23 History Pramipexole [Mirapex] 0.25 mg PO HS PRN 05/12/23 05/12/23 History Allergies Allergy/AdvReac Type Severity Reaction Status Date / Time Penicillins Allergy Unknown Rash/Hives Verified 05/12/23 15:22 adhesive AdvReac skin Verified 05/12/23 15:22 tears-paper tape is better but still will tear Physical Exam Vitals: Vital Signs Temp Pulse Pulse Resp BP BP Pulse Ox 05/13/23 00:04 97.6 F 55 L 17 113/60 05/12/23 23:00 54 L 16 113/38 96 05/12/23 22:30 54 L 11 L 108/48 97 05/12/23 22:00 53 L 20 108/43 98 05/12/23 21:30 92.4 F L 53 L 17 102/39 98 05/12/23 21:20 92.4 F L 53 L 17 102/39 98 05/12/23 21:00 92.1 F L 51 L 17 98/41 98 05/12/23 20:50 92 F L 53 L 18 105/38 97 05/12/23 20:30 53 L 26 H 100/41 99 05/12/23 20:00 92.4 F L 53 L 22 98/37 99 05/12/23 19:30 53 L 22 96/42 97 05/12/23 19:16 52 L 18 102/41 05/12/23 19:00 55 L 15 98/39 100 05/12/23 18:45 93.9 F L 50 L 16 89/40 100 05/12/23 18:35 52 L 18 96/38 05/12/23 18:30 52 L 15 93/43 100 05/12/23 18:22 55 L 18 93/43 05/12/23 18:15 60 18 97/46 99 05/12/23 18:00 64 20 88/42 99 05/12/23 17:45 56 L 18 88/42 98 05/12/23 17:30 53 L 19 100/45 100 05/12/23 16:51 30 L 20 104/32 97 05/12/23 16:44 30 L 20 104/32 97 05/12/23 16:04 35 L 20 103/73 99 05/12/23 15:00 35 L 18 95/60 98 05/12/23 14:48 31 L 90/34 05/12/23 14:00 40 L 18 104/66 98 05/12/23 13:43 42 L 18 106/47 98 05/12/23 12:27 42 L 16 108/62 98 05/12/23 12:24 98.2 F 42 L 20 114/44 97 Intake and Output 05/12/23 05/12/23 05/13/23 14:59 22:59 06:59 Intake Total 476 300 Output Total 0 0 Balance 476 300 Intake: Intake, IV Titration 144 19 Amount DOPamine DRIP 800 mg In 54 9 Dextrose/Water 1 250ml. bag @ 2.5 MCG/KG/MIN 4. 571 mls/hr IV .Q24H [facility] Rx#:[id number] Sodium Chloride 0.9% 1, 90 10 000 ml @ 20 mls/hr IV . Q24H [facility] Rx#:[id number] Blood Product 282 281 Rc Pheresis As-3 Unit 0 281 [id number] Rc Pheresis As-3 Unit 282 [id number] Other 50 Rc Pheresis As-3 Unit 50 [id number] Output: Urine 0 0 Other: Weight 97.522 kg 97.522 kg GENERAL EXAM: Alert, 72-year-old white male who is quite debilitated, comfortab le in no apparent distress. HEAD: Normocephalic and atraumatic EYES: Left pupil reactive to light. Nonreactive right pupil. NOSE: Clear with pink turbinates. THROAT: No erythema or exudates. NECK: No masses, no JVD. CHEST: No chest wall deformity. LUNGS: Diminished right basilar lung sounds. no crackles, wheeze, rhonchi. On 2 L/m nasal cannula. No conversational dyspnea or accessory muscle use.. CVS: S1 and S2 normal with harsh systolic murmur grade 3/6, regular rhythm. No other extra heart sounds ABDOMEN: Abdomen is soft, no hepatosplenomegaly, active bowel sounds, no guarding or rigidity. There is a peritoneal dialysis catheter. SPINE: No scoliosis or deformity SKIN: No rashes. Generalized dry skin. CENTRAL NERVOUS SYSTEM: Right-sided facial asymmetry and mild dysarthria. Left leg weakness grade 1/5. Right lower extremity 4/5. Bilateral upper extremities 4/5 EXTREMITIES: There is left lower extremity pedal edema 2-3+ pitting. No clubbing, or cyanosis. Peripheral pulses are intact. Results - Laboratory Findings CBC and BMP: 05/12/23 12:37 05/12/23 12:27 PT/INR, D-dimer PT 10.4 sec (9.0-12.0) 05/12/23 12:27 INR 1.0 (<1.2) 05/12/23 12:27 Abnormal lab findings: Abnormal Labs 05/12/23 05/12/23 05/12/23 12:27 12:27 12:27 WBC RBC Hgb Hct RDW Plt Count Neutrophils # Lymphocytes # Sodium 127 L Chloride 91 L BUN 60 H Creatinine 5.58 H Glucose 147 H POC Glucose (mg/dL) Phosphorus 6.7 H ALT 61 H Total Protein 4.7 L Albumin 2.7 L TSH 6.720 H Crossmatch 05/12/23 05/12/23 05/12/23 12:37 16:25 17:12 WBC 1.2 L* RBC 2.03 L Hgb 5.6 L* Hct 17.8 L* RDW 20.0 H Plt Count 62 L D Neutrophils # 0.9 L Lymphocytes # 0.1 L Sodium Chloride BUN Creatinine Glucose POC Glucose (mg/dL) 227 H Phosphorus ALT Total Protein Albumin TSH Crossmatch See Detail 05/12/23 21:03 WBC RBC Hgb Hct RDW Plt Count Neutrophils # Lymphocytes # Sodium Chloride BUN Creatinine Glucose POC Glucose (mg/dL) 243 H Phosphorus ALT Total Protein Albumin TSH Crossmatch - Diagnostic Findings Chest x-ray: image reviewed Assessment and Plan Assessment: Symptomatic bradycardia, presenting rhythm was atrial fibrillation with slow ventricular response, and was subsequently started on dopamine which is currently infusing at 2.5 mcg/kg/m. Severe Pancytopenia, patient is status post transfusion 2 units PRBC Acute hypoxemic respiratory failure, on 2 L/m nasal cannula, possibly secondary to mild diastolic chf exacerbation. Chest x-ray on arrival shows a chronic right moderate sized pleural effusion, mild cardiomegaly, mild pulmonary vascular congestion. Most recent echocardiogram from May 2022 shows preserved ejection fraction of 50-55% with mild to moderate aortic stenosis. 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 History of meningioma with chronic left-sided hemiparesis Benign prosthetic hyperplasia History of gout Obesity with a BMI of 30 kg/m Plan: Patient's medications, labs, chest x-ray reviewed Continue supplemental oxygen Continue dopamine for bradycardia, currently appears to be in junctional rhythm Cardiology has been consulted and is following Repeat Echocardiogram is pending Patient is status post transfusion 2 units PRBC No obvious acute blood loss, stool occult blood negative Peritoneal dialysis has been restarted Obtain a nonenhanced CT of the brain, although, most of his neurological deficits appear to be chronic. His speech was reportedly more slurred per . Patient takes eliquis on an outpatient basis. Blood glucose control per admitting Protonix for GI prophylaxis We'll continue to follow and make recommendations while the patient is in the intensive care unit. Overall prognosis is guarded related to above-mentioned comorbidities. I have personally seen and examined the patient, performed the documentation and the assessment and plan as written. Number of minutes spent on the visit:20 Time with Patient: Greater than 30
[2023-05-13 04:49] LABS: Anisocytosis Slight; Basophils % (A) 0 %; Eosinophils % (A) 1 %; HCT 23.5 % (39.0-53.0); Hypochromasia Marked; Lymphocytes # (A) 0.2 k/uL (1.0-4.8); Lymphocytes % (A) 5 %; MCH 27.5 pg (25.0-35.0); MCHC 32.3 g/dL (31.0-37.0); MCV 85.2 fL (80.0-100.0); Mean Platelet Volume 10.2; Monocytes # (A) 0.2 k/uL (0-1.0); Monocytes % (A) 6 %; Neutrophils # (A) 3.3 k/uL (1.3-7.7); Neutrophils % (A) 87 %; Poikilocytosis Slight; RBC 2.76 m/uL (4.30-5.90); RDW 19.9 % (11.5-15.5); WBC 3.8 k/uL (3.8-10.6)
[2023-05-13 05:01] LABS: ALT 68 U/L (4-49); AST 59 U/L (17-59); African American GFR (CKD) 12 (>60 ml/min/1.73 sqM); Albumin 2.8 g/dL (3.5-5.0); Alkaline Phosphatase 72 U/L (38-126); Anion Gap 9 mmol/L; Blood Urea Nitrogen 65 mg/dL (9-20); Calcium 9.3 mg/dL (8.4-10.2); Carbon Dioxide 25 mmol/L (22-30); Chloride 91 mmol/L (98-107); Glucose 154 mg/dL (74-99); Magnesium 2.1 mg/dL (1.6-2.3); Non-African American GFR(CKD) 10 (>60 ml/min/1.73 sqM); Phosphorus 6.8 mg/dL (2.5-4.5); Sodium 125 mmol/L (137-145); Total Bilirubin 0.6 mg/dL (0.2-1.3); Total Protein 5.1 g/dL (6.3-8.2)
[2023-05-13 05:10] LABS: Potassium 5.7 mmol/L (3.5-5.1)
[2023-05-13 05:51] LABS: HGB 7.6 gm/dL (13.0-17.5); Platelet Count 78 k/uL (150-450)
--- NOTE | 2023-05-13 07:31 | P.PN ---
Subjective Progress Note Date: 05/13/23 PROGRESS NOTE The patient is a 72-year-old male with a known history of CAD, status post CABG, prior history of atrial fibrillation, end-stage renal disease on peritoneal dialysis, diabetes who presented because of progressive fatigue and weakness and bradycardia. In the emergency room he was noted to be bradycardic. The EKGs available to me shows atrial fibrillation with probable junctional rhythm at times with a rate in the 30-40. He has underwent CABG in 2004, his left ventricle systolic function has been preserved. He has chronic right-sided effusion. He has a prior history of breast cancer and has received chemotherapy. He also has a history of [id number] aortic stenosis. He denies any chest discomfort but he has been feeling progressively more fatigued with lack of energy over the last week or so. According to his his speech was not as good the last few days. He has no nausea or vomiting. His activity is very limited following encephalitis and surgery. He was started on IV dopamine in the emergency room with improvement in his rate. His blood pressure is on the low side but stable. He has a history of hypertension, hyperlipidemia and diabetes mellitus. He was noted to be severely anemic with a hemoglobin of 5.6 and evidence of pancytopenia. His troponin was less than 0.012. His left ventricle systolic function in the past has been preserved. May 13 The patient remained stable, he continues to be on IV dopamine. He received transfusion yesterday. His numbers are better today. He is receiving peritoneal dialysis. He continues to be in junctional rhythm. There is no evidence of long pauses or ventricular ectopic activity. His blood pressure is stable. He denies any chest discomfort, dizziness or palpitations. According to him he feels better. Medications: Insulin, pravastatin 40 mg daily, IV dopamine PHYSICAL EXAMINATION: Blood pressure 100/30 heart rate 60 LUNGS: Clear to auscultation anteriorly HEART: Regular rate and rhythm, S1, S2. No S3. Systolic ejection murmur 3/6 at the base with a holosystolic murmur at the apex ABDOMEN: Soft, nontender, no organomegaly EXTREMETIES: +1-2 edema more on the left side LAB: WBC 3.8, hemoglobin 7.6, platelets 78, potassium 5.7, BUN 65, creatinine 5.03. Computed tomography scan of the head with no acute changes IMPRESSION: 1. Bradycardia with junctional rhythm in a patient with known history of atrial fibrillation, maintained on IV dopamine 2. Severe pancytopenia, etiology unclear, improved after transfusion 3. Status post CABG 4. Aortic valve murmur consistent with aortic stenosis, probably moderate 5. End-stage kidney disease 6. Hyperlipidemia 7. Diabetes mellitus 8. Status post plus pulse he 8. History of encephalitis and meningioma his left sided weakness PLAN: 1. Continue IV dopamine for now 2. Obtain an echocardiogram with Doppler 3. Hematology consult 4. Depending on his rhythm and his lab data decision would be made regarding the need to undergo permanent pacemaker implantation 5. Continue to hold anticoagulation Objective - Vital Signs Vital signs: Vital Signs Temp 97.6 F 05/13/23 06:00 Pulse 61 05/13/23 06:30 Resp 17 05/13/23 06:30 BP 100/33 05/13/23 06:30 Pulse Ox 98 05/13/23 06:30 FiO2 Intake & Output 05/12/23 05/13/23 05/13/23 18:59 06:59 18:59 Intake Total 58 1179 Output Total 0 Balance 58 1179 Weight 97.522 kg 96.8 kg Intake: IV 319 DOPamine DRIP 800 mg In 99 Dextrose/Water 1 250ml. bag @ 2.5 MCG/KG/MIN 4. 571 mls/hr IV .Q24H [facility] Rx#:[id number] Sodium Chloride 0.9% 1, 220 000 ml @ 20 mls/hr IV . Q24H [facility] Rx#:[id number] Intake, IV Titration 58 29 Amount DOPamine DRIP 800 mg In 18 9 Dextrose/Water 1 250ml. bag @ 2.5 MCG/KG/MIN 4. 571 mls/hr IV .Q24H [facility] Rx#:[id number] Sodium Chloride 0.9% 1, 40 20 000 ml @ 20 mls/hr IV . Q24H [facility] Rx#:[id number] Blood Product 0 781 Rc Pheresis As-3 Unit 281 [id number] Rc Pheresis As-3 Unit 0 282 [id number] Other 50 Rc Pheresis As-3 Unit 50 [id number] Output: Urine 0 Other: Voiding Method Urinal - Labs CBC & Chem 7: 05/13/23 04:04 05/13/23 04:04 Labs: Abnormal Lab Results - Last 24 Hours (Table) 05/12/23 05/12/23 05/12/23 Range/Units 12:27 12:27 12:27 WBC (3.8-10.6) k/uL RBC (4.30-5.90) m/uL Hgb (13.0-17.5) gm/dL Hct (39.0-53.0) % RDW (11.5-15.5) % Plt Count (150-450) k/uL Neutrophils # (1.3-7.7) k/uL Lymphocytes # (1.0-4.8) k/uL Sodium 127 L (137-145) mmol/L Potassium (3.5-5.1) mmol/L Chloride 91 L (98-107) mmol/L BUN 60 H (9-20) mg/dL Creatinine 5.58 H (0.66-1.25) mg/dL Glucose 147 H (74-99) mg/dL POC Glucose (mg/dL) (70-110) mg/dL Phosphorus 6.7 H (2.5-4.5) mg/dL ALT 61 H (4-49) U/L Total Protein 4.7 L (6.3-8.2) g/dL Albumin 2.7 L (3.5-5.0) g/dL TSH 6.720 H (0.465-4.680) mIU/L Crossmatch 05/12/23 05/12/23 05/12/23 Range/Units 12:37 16:25 17:12 WBC 1.2 L* (3.8-10.6) k/uL RBC 2.03 L (4.30-5.90) m/uL Hgb 5.6 L* (13.0-17.5) gm/dL Hct 17.8 L* (39.0-53.0) % RDW 20.0 H (11.5-15.5) % Plt Count 62 L D (150-450) k/uL Neutrophils # 0.9 L (1.3-7.7) k/uL Lymphocytes # 0.1 L (1.0-4.8) k/uL Sodium (137-145) mmol/L Potassium (3.5-5.1) mmol/L Chloride (98-107) mmol/L BUN (9-20) mg/dL Creatinine (0.66-1.25) mg/dL Glucose (74-99) mg/dL POC Glucose (mg/dL) 227 H (70-110) mg/dL Phosphorus (2.5-4.5) mg/dL ALT (4-49) U/L Total Protein (6.3-8.2) g/dL Albumin (3.5-5.0) g/dL TSH (0.465-4.680) mIU/L Crossmatch See Detail 05/12/23 05/13/23 05/13/23 Range/Units 21:03 04:04 04:04 WBC (3.8-10.6) k/uL RBC 2.76 L (4.30-5.90) m/uL Hgb 7.6 L D (13.0-17.5) gm/dL Hct 23.5 L (39.0-53.0) % RDW 19.9 H (11.5-15.5) % Plt Count 78 L (150-450) k/uL Neutrophils # (1.3-7.7) k/uL Lymphocytes # 0.2 L (1.0-4.8) k/uL Sodium 125 L (137-145) mmol/L Potassium 5.7 H (3.5-5.1) mmol/L Chloride 91 L (98-107) mmol/L BUN 65 H (9-20) mg/dL Creatinine 5.03 H (0.66-1.25) mg/dL Glucose 154 H (74-99) mg/dL POC Glucose (mg/dL) 243 H (70-110) mg/dL Phosphorus 6.8 H (2.5-4.5) mg/dL ALT 68 H (4-49) U/L Total Protein 5.1 L (6.3-8.2) g/dL Albumin 2.8 L (3.5-5.0) g/dL TSH (0.465-4.680) mIU/L Crossmatch
[2023-05-13] MEDS: PANTOPRAZOLE 40 MG/10 ML VIAL IVP SCH (08:41)
[2023-05-13 09:58] LABS: Anisocytosis Moderate; HCT 22.6 % (39.0-53.0); HGB 7.3 gm/dL (13.0-17.5); Hypochromasia Marked; MCH 27.9 pg (25.0-35.0); MCHC 32.5 g/dL (31.0-37.0); Mean Platelet Volume 9.6; Poikilocytosis Moderate; RBC 2.63 m/uL (4.30-5.90); RDW 20.5 % (11.5-15.5); Reticulocyte % 3.5 % (0.5-2.0); WBC 4.1 k/uL (3.8-10.6)
[2023-05-13 10:07] LABS: Platelet Count 81 k/uL (150-450)
[2023-05-13 10:52] LABS: Potassium 5.5 mmol/L (3.5-5.1)
--- NOTE | 2023-05-13 10:59 | P.CONS ---
History of Present Illness - Reason for Consult Consult date: 05/13/23 pancytopenia Requesting physician: Thuy Pablo - Chief Complaint weakness - History of Present Illness Mr. Jamison is a 72-year-old male patient of Dr. 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 fib on eliquis, CAD, history of CABG and stenting, DM 2, HTN, hyperlipidemia, obstructive sleep apnea, Arguelles's palsy, blind in the right eye, w/c bound. He was seen in the hospital earlier this year for suspected encephalitis, he is now admitted with progressive weakness, slurred speech, fatigue and lethargy. Patient seen in the ICU, he is lethargic but did answer questions, denied fevers prior to admit, no shortness of breath, nausea, vomiting, abdominal pain, diarrhea. Initial evaluation, patient to be bradycardic, he was evaluated by Cardiology and being medically managed. We are consulted for pancytopenia. On admit WBC 1.2, Hgb 5.6, platelets 62,000. Daisha ent is status post 2 units PRBCs, hemoglobin is now 7.3. WBC is normalized, ANC has remained adequate, platelets are up to 81,000. Chest x-ray showed pulmonary vascular congestion, chronic right-sided pleural effusion. Malignancy Hx: diagnosed with right breast cancer in January 2022. He reported ri ght breast pain 1 year, PCP referred to surgeon, biopsy 01/23/22 revealed grade 2 IDC ER/MO 100%/100%, HER-2/mihai 2+ IHC, positive fish. There was no family history of breast or ovarian cancers. Patient was treated jennifer-adjuvantly with Taxol, pertuzumab and trastuzumab infusions, received 10/12 planned cycles due to side effects of treatment and general decline in PS over the course of treatment. He had rt simple mastectomy 07/22/22, sentinel lymph node excision. 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 All margins negative for in situ and invasive carcinoma. Tumor size 1.5 cm. He is current on his follow-up appointments Review of Systems Review of systems is as stated in HPI, to the best of patient's ability Past Medical History Past Medical History: Atrial Fibrillation, Atrial Flutter, Coronary Artery Dis ease (CAD), Cancer, Diabetes Mellitus, Deep Vein Thrombosis (DVT), Eye Disorder, GERD/Reflux, Hyperlipidemia, Hypertension, Myocardial Infarction ([place]), Neurologic Disorder, Osteoarthritis (OA), Prostate Disorder, Renal Disease, Sleep Apnea/CPAP/BIPAP Additional Past Medical History / Comment(s): currently has Hemodialysis MWF-4 Hrs-has port left shoulder., rt breast [place]-Spring 2021,Blind in right eye. Hx encephalopathy, meningioma with left sided weakness, cannot use left leg, wheelchair bound. PT CAN'T HAVE ANY VACCINES THAT ARE LIVE VIRUSES. PLEASE USE PAPER TAPE ONLY(PT HAS THIN SKIN). uses slide board at home to transfer pt to w/c, with 2 person assist pt can stand/pivot to chair,uses cpap, uses O2 @ 2l [place] prn Last Myocardial Infarction Date:: 02-11-2005 History of Any Multi-Drug Resistant Organisms: None Reported Past Surgical History: Adenoidectomy, Breast Surgery, Cardiac Ablation, Cholecystectomy, Coronary Bypass/CABG, Heart Catheterization With Stent, Orthopedic Surgery, Tonsillectomy Additional Past Surgical History / Comment(s): Triple bypass, Meningioma Removed from Brain 04/2013, peg tube- removed 9 years ago, DESTINEY FILTER, BILATERAL CATARACTS- LENS IMPLANTS, COLONOSCOPY/POLYPECTOMY, RIGHT KNEE ARTHROSCOPY, 07/21/22 right breast mastectomy Past Anesthesia/Blood Transfusion Reactions: No Reported Reaction Date of Last Stent Placement:: 2004 Past Psychological History: Depression Smoking Status: Never smoker Past Alcohol Use History: None Reported Past Drug Use History: None Reported - Past Family History Father History Unknown: Yes Family Medical History: Congestive Heart Failure (CHF) Mother History Unknown: Yes Additional Family Medical History / Comment(s): at age 90 Medications and Allergies Home Medications Medication Instructions Recorded Confirmed Type Tamsulosin HCl [Flomax] 0.4 mg PO BID 06/19/15 05/12/23 History amLODIPine [Norvasc] 5 mg PO BID 07/09/16 05/12/23 History Pravastatin Sodium [Pravachol] 40 mg PO HS 03/21/21 05/12/23 History Lidocaine-Prilocaine Cream [Emla 1 applic TOPICAL DAILY PRN 06/03/22 05/12/23 History Cream 2.5%/2.5%] INSULIN ASPART (NovoLOG) [NovoLOG See Protocol SQ ACHS PRN 07/31/22 05/12/23 History (formulary)] Insulin Glargine,Hum.rec.anlog 35 units SQ HS 09/17/22 05/12/23 History [Lantus Solostar Pen] Torsemide [Demadex] 20 mg PO BID 09/17/22 05/12/23 History Apixaban [Eliquis] 5 mg PO DAILY 01/04/23 05/12/23 History Lactulose 10 gm PO DAILY PRN 01/04/23 05/12/23 History Ciclopirox Nail Lacquer 8% 1 applic TOPICAL DIRECTED 05/12/23 05/12/23 History Furosemide [Lasix] 40 mg PO BID 05/12/23 05/12/23 History Pramipexole [Mirapex] 0.25 mg PO HS PRN 05/12/23 05/12/23 History Allergies Allergy/AdvReac Type Severity Reaction Status Date / Time Penicillins Allergy Unknown Rash/Hives Verified 05/12/23 15:22 adhesive AdvReac skin Verified 05/12/23 15:22 tears-paper tape is better but still will tear Physical Exam Vitals: Vital Signs Temp Pulse Pulse Resp BP BP Pulse Ox 05/13/23 07:30 53 L 19 92/36 99 05/13/23 07:15 58 L 18 96/32 99 05/13/23 07:00 59 L 17 97/39 99 05/13/23 06:45 57 L 19 93/38 99 05/13/23 06:30 61 17 100/33 98 05/13/23 06:15 56 L 18 97/38 99 05/13/23 06:00 97.6 F 58 L 16 97/39 99 05/13/23 05:45 61 94/34 98 05/13/23 05:30 52 L 98/33 97 05/13/23 05:15 50 L 89/37 98 05/13/23 05:00 51 L 28 H 95/33 98 05/13/23 04:45 49 L 103/35 96 05/13/23 04:30 50 L 16 94/32 98 05/13/23 04:15 49 L 17 100/38 97 05/13/23 04:00 98.6 F 50 L 54 L 15 102/36 97 05/13/23 03:45 51 L 16 103/41 98 05/13/23 03:30 55 L 99/42 98 05/13/23 03:15 49 L 15 93/43 98 05/13/23 03:00 51 L 17 107/47 98 05/13/23 02:45 62 18 94/45 98 05/13/23 02:30 50 L 14 110/38 97 05/13/23 02:15 52 L 16 100/35 97 05/13/23 02:00 50 L 18 97/41 98 05/13/23 01:45 50 L 16 98/36 98 05/13/23 01:30 51 L 17 107/76 97 05/13/23 01:27 96.4 F L 53 L 17 107/76 97 05/13/23 01:15 51 L 17 110/48 97 05/13/23 01:00 96.3 F L 54 L 20 106/58 96 05/13/23 00:45 50 L 15 107/75 95 05/13/23 00:06 97.6 F 55 L 17 113/60 98 05/13/23 00:04 97.6 F 55 L 17 113/60 05/13/23 00:00 97.8 F 56 L 54 L 18 110/48 38 L 05/12/23 23:45 54 L 16 111/45 95 05/12/23 23:30 52 L 15 106/56 94 L 05/12/23 23:15 54 L 15 97 05/12/23 23:06 54 L 18 107/50 95 05/12/23 23:00 54 L 16 113/38 96 05/12/23 22:30 54 L 11 L 108/48 97 05/12/23 22:00 53 L 20 108/43 98 05/12/23 21:30 92.4 F L 53 L 17 102/39 98 05/12/23 21:20 92.4 F L 53 L 17 102/39 98 05/12/23 21:00 92.1 F L 51 L 17 98/41 98 05/12/23 20:50 92 F L 53 L 18 105/38 97 05/12/23 20:30 53 L 26 H 100/41 99 05/12/23 20:00 92.4 F L 53 L 54 L 22 98/37 99 05/12/23 19:30 53 L 22 96/42 97 05/12/23 19:16 52 L 18 102/41 05/12/23 19:00 55 L 15 98/39 100 05/12/23 18:45 93.9 F L 50 L 16 89/40 100 05/12/23 18:35 52 L 18 96/38 05/12/23 18:30 52 L 15 93/43 100 05/12/23 18:22 55 L 18 93/43 05/12/23 18:15 60 18 97/46 99 05/12/23 18:00 64 20 88/42 99 05/12/23 17:45 56 L 18 88/42 98 05/12/23 17:30 53 L 19 100/45 100 05/12/23 16:51 30 L 20 104/32 97 05/12/23 16:44 30 L 20 104/32 97 05/12/23 16:04 35 L 20 103/73 99 05/12/23 15:00 35 L 18 95/60 98 05/12/23 14:48 31 L 90/34 05/12/23 14:00 40 L 18 104/66 98 05/12/23 13:43 42 L 18 106/47 98 05/12/23 12:27 42 L 16 108/62 98 05/12/23 12:24 98.2 F 42 L 20 114/44 97 Intake and Output 05/12/23 05/13/23 05/13/23 22:59 06:59 14:59 Intake Total 506 731 29 Output Total 0 0 0 Balance 506 731 29 Intake: IV 87 232 29 DOPamine DRIP 800 mg In 27 72 9 Dextrose/Water 1 250ml. bag @ 2.5 MCG/KG/MIN 4. 571 mls/hr IV .Q24H [facility] Rx#:[id number] Sodium Chloride 0.9% 1, 60 160 20 000 ml @ 20 mls/hr IV . Q24H [facility] Rx#:[id number] Intake, IV Titration 87 Amount DOPamine DRIP 800 mg In 27 Dextrose/Water 1 250ml. bag @ 2.5 MCG/KG/MIN 4. 571 mls/hr IV .Q24H [facility] Rx#:[id number] Sodium Chloride 0.9% 1, 60 000 ml @ 20 mls/hr IV . Q24H [facility] Rx#:[id number] Blood Product 282 499 Rc Pheresis As-3 Unit 0 281 [id number] Rc Pheresis As-3 Unit 282 [id number] Other 50 Rc Pheresis As-3 Unit 50 [id number] Output: Urine 0 0 0 Other: Voiding Method Urinal Urinal Weight 97.522 kg 96.8 kg - Constitutional General appearance: cooperative, no acute distress, obese - EENT Dry mucous membranes. Right eye cloudy lens. Left eye near pinpoint pupil, reactive to light Eyes: anicteric sclerae ENT: hearing grossly normal - Neck Neck: no lymphadenopathy - Respiratory Respiratory: bilateral: CTA - Cardiovascular Rhythm: regular Heart sounds: normal: S1, S2 Abnormal Heart Sounds: systolic murmur (4/6) leg Peripheral Edema: right: 1+, left: 3+, bilateral: Pitting - Gastrointestinal General gastrointestinal: no absent bowel sounds, no decreased bowel sounds, no distended, no hepatomegaly, no hyperactive bowel sounds, normal bowel sounds, no organomegaly, no rigid, no scaphoid, soft, no splenomegaly, no tenderness, no umbilical hernia, no ventral hernia - Integumentary Integumentary: normal - Musculoskeletal Musculoskeletal: generalized weakness - Psychiatric Psychiatric: A&O x's 3 Results CBC & Chem 7: 05/13/23 09:34 05/13/23 04:04 Labs: Abnormal Lab Results - Last 24 Hours (Table) 05/12/23 05/12/23 05/12/23 Range/Units 12:27 12:27 12:27 WBC (3.8-10.6) k/uL RBC (4.30-5.90) m/uL Hgb (13.0-17.5) gm/dL Hct (39.0-53.0) % RDW (11.5-15.5) % Plt Count (150-450) k/uL Neutrophils # (1.3-7.7) k/uL Lymphocytes # (1.0-4.8) k/uL Sodium 127 L (137-145) mmol/L Potassium (3.5-5.1) mmol/L Chloride 91 L (98-107) mmol/L BUN 60 H (9-20) mg/dL Creatinine 5.58 H (0.66-1.25) mg/dL Glucose 147 H (74-99) mg/dL POC Glucose (mg/dL) (70-110) mg/dL Phosphorus 6.7 H (2.5-4.5) mg/dL ALT 61 H (4-49) U/L Total Protein 4.7 L (6.3-8.2) g/dL Albumin 2.7 L (3.5-5.0) g/dL TSH 6.720 H (0.465-4.680) mIU/L Crossmatch 05/12/23 05/12/23 05/12/23 Range/Units 12:37 16:25 17:12 WBC 1.2 L* (3.8-10.6) k/uL RBC 2.03 L (4.30-5.90) m/uL Hgb 5.6 L* (13.0-17.5) gm/dL Hct 17.8 L* (39.0-53.0) % RDW 20.0 H (11.5-15.5) % Plt Count 62 L D (150-450) k/uL Neutrophils # 0.9 L (1.3-7.7) k/uL Lymphocytes # 0.1 L (1.0-4.8) k/uL Sodium (137-145) mmol/L Potassium (3.5-5.1) mmol/L Chloride (98-107) mmol/L BUN (9-20) mg/dL Creatinine (0.66-1.25) mg/dL Glucose (74-99) mg/dL POC Glucose (mg/dL) 227 H (70-110) mg/dL Phosphorus (2.5-4.5) mg/dL ALT (4-49) U/L Total Protein (6.3-8.2) g/dL Albumin (3.5-5.0) g/dL TSH (0.465-4.680) mIU/L Crossmatch See Detail 05/12/23 05/13/23 05/13/23 Range/Units 21:03 04:04 04:04 WBC (3.8-10.6) k/uL RBC 2.76 L (4.30-5.90) m/uL Hgb 7.6 L D (13.0-17.5) gm/dL Hct 23.5 L (39.0-53.0) % RDW 19.9 H (11.5-15.5) % Plt Count 78 L (150-450) k/uL Neutrophils # (1.3-7.7) k/uL Lymphocytes # 0.2 L (1.0-4.8) k/uL Sodium 125 L (137-145) mmol/L Potassium 5.7 H (3.5-5.1) mmol/L Chloride 91 L (98-107) mmol/L BUN 65 H (9-20) mg/dL Creatinine 5.03 H (0.66-1.25) mg/dL Glucose 154 H (74-99) mg/dL POC Glucose (mg/dL) 243 H (70-110) mg/dL Phosphorus 6.8 H (2.5-4.5) mg/dL ALT 68 H (4-49) U/L Total Protein 5.1 L (6.3-8.2) g/dL Albumin 2.8 L (3.5-5.0) g/dL TSH (0.465-4.680) mIU/L Crossmatch Chest x-ray: report reviewed CT Scan - head: report reviewed Assessment and Plan (1) Pancytopenia Current Visit: Yes Status: Acute Priority: High Code(s): D61.818 - OTHER PANCYTOPENIA SNOMED Code(s): 971613924 (2) Breast cancer in male Current Visit: No Status: Chronic Priority: Low Code(s): C50.929 - MALIGNANT NEOPLASM OF UNSP SITE OF UNSPECIFIED MALE BREAST SNOMED Code(s): 628157268 Plan: Weakness, bradycardia -Patient is in the ICU be monitored -Cardiology has assessed the patient Pancytopenia -Anemia, chronic, multifactorial. Present since at least 2013. Patient has chronic kidney disease, currently on dialysis. Status post 2 units PRBCs with appropriate increase in hemoglobin. Transfuse for hemoglobin less than 7. Iron studies and erythropoietin levels ordered. -Thrombocytopenia intermittently low over the last year. This is the worst it has been. Patient's platelets slightly improved today to 81,000. Patient's platelet counts are currently adequate for DVT prophylaxis. -Low WBC, adequate ANC. White blood cell count did normalized since admitted. No G-CSF necessary. Likely count fell below normal because of stress on the bone marrow from acute condition, history of chemotherapy for breast cancer. -Continue to monitor CBC while inpatient Male breast cancer history -ER/MO/HER-2 positive breast cancer -Status post treatment and mastectomy July 2022 -Patient is current on his follow-up -Patient reports he is on a pill at home for his breast cancer-will check records at the office. Patient is likely on an AI, just not sure which one. -MRI of the brain has been ordered for unusual patient behavior, rule out metastatic disease to the brain. Left lower extremity swelling -Worse than the right lower extremity -Doppler ordered Doctor attests: I performed a history and physical examination of this patient, developed impression and plan of care. Discussed with dictator. I agree with dictators note, documented as a scribe.
[2023-05-13] MEDS ORDERED: INSULIN REGULAR 100 UNIT/ML VIAL (IV) IV ONE (11:05)
[2023-05-13] MEDS ORDERED: DEXTROSE 50% SYRINGE 50 ML IVP STA ×2 (11:06→13:35)
--- NOTE | 2023-05-13 11:29 | P.NPCON ---
History of Present Illness - Reason for Consult end stage renal disease - History of Present Illness Patient is a 72-year-old male with end-stage renal disease maintained on peritoneal dialysis. Patient has history of CHF, coronary artery disease, type 2 diabetes and obstructive sleep apnea. He is admitted to the hospital with complaints of increased weakness and fatigue. No history of fever or chills. No history of nausea vomiting or abdominal pain. Patient was noted to have significant bradycardia with heart rate in the 30s. Blood pressure was low with systolic in the 80s and 90s. Patient was started on dopamine. He has been evaluated by cardiology. Potassium was 5.0 yesterday. To date is at 5.5 mg/L. Patient remains on 5 g of dopamine. Blood sugar is not elevated. Hemoglobin was low at 5.6 g/dL. No active bleeding reported. Status post packed RBCs transfusion. Review of Systems As per HPI Past Medical History Past Medical History: Atrial Fibrillation, Atrial Flutter, Coronary Artery Disease (CAD), Cancer, Diabetes Mellitus, Deep Vein Thrombosis (DVT), Eye Disorder, GERD/Reflux, Hyperlipidemia, Hypertension, Myocardial Infarction ([place]), Neurologic Disorder, Osteoarthritis (OA), Prostate Disorder, Renal Disease, Sleep Apnea/CPAP/BIPAP Additional Past Medical History / Comment(s): currently has Hemodialysis MWF-4 Hrs-has port left shoulder., rt breast [place]-Spring 2021,Blind in right eye. Hx encephalopathy, meningioma with left sided weakness, cannot use left leg, wheelchair bound. PT CAN'T HAVE ANY VACCINES THAT ARE LIVE VIRUSES. PLEASE USE PAPER TAPE ONLY(PT HAS THIN SKIN). uses slide board at home to transfer pt to w/c, with 2 person assist pt can stand/pivot to chair,uses cpap, uses O2 @ 2l [place] prn Last Myocardial Infarction Date:: 02-11-2005 History of Any Multi-Drug Resistant Organisms: None Reported Past Surgical History: Adenoidectomy, Breast Surgery, Cardiac Ablation, Cholecystectomy, Coronary Bypass/CABG, Heart Catheterization With Stent, Orthopedic Surgery, Tonsillectomy Additional Past Surgical History / Comment(s): Triple bypass, Meningioma Removed from Brain 04/2013, peg tube- removed 9 years ago, DESTINEY FILTER, BILATERAL CATARACTS- LENS IMPLANTS, COLONOSCOPY/POLYPECTOMY, RIGHT KNEE ARTHROSCOPY, 07/21/22 right breast mastectomy Past Anesthesia/Blood Transfusion Reactions: No Reported Reaction Date of Last Stent Placement:: 2004 Past Psychological History: Depression Smoking Status: Never smoker Past Alcohol Use History: None Reported Past Drug Use History: None Reported - Past Family History Father History Unknown: Yes Family Medical History: Congestive Heart Failure (CHF) Mother History Unknown: Yes Additional Family Medical History / Comment(s): at age 90 Medications and Allergies Home Medications Medication Instructions Recorded Confirmed Type Tamsulosin HCl [Flomax] 0.4 mg PO BID 06/19/15 05/12/23 History amLODIPine [Norvasc] 5 mg PO BID 07/09/16 05/12/23 History Pravastatin Sodium [Pravachol] 40 mg PO HS 03/21/21 05/12/23 History Lidocaine-Prilocaine Cream [Emla 1 applic TOPICAL DAILY PRN 06/03/22 05/12/23 History Cream 2.5%/2.5%] INSULIN ASPART (NovoLOG) [NovoLOG See Protocol SQ ACHS PRN 07/31/22 05/12/23 History (formulary)] Insulin Glargine,Hum.rec.anlog 35 units SQ HS 09/17/22 05/12/23 History [Lantus Solostar Pen] Torsemide [Demadex] 20 mg PO BID 09/17/22 05/12/23 History Apixaban [Eliquis] 5 mg PO DAILY 01/04/23 05/12/23 History Lactulose 10 gm PO DAILY PRN 01/04/23 05/12/23 History Ciclopirox Nail Lacquer 8% 1 applic TOPICAL DIRECTED 05/12/23 05/12/23 History Furosemide [Lasix] 40 mg PO BID 05/12/23 05/12/23 History Pramipexole [Mirapex] 0.25 mg PO HS PRN 05/12/23 05/12/23 History Allergies Allergy/AdvReac Type Severity Reaction Status Date / Time Penicillins Allergy Unknown Rash/Hives Verified 05/12/23 15:22 adhesive AdvReac skin Verified 05/12/23 15:22 tears-paper tape is better but still will tear Physical Exam Vitals: Vital Signs Temp Pulse Pulse Resp BP BP Pulse Ox 05/13/23 09:00 55 L 19 97/41 98 05/13/23 08:45 53 L 14 100/44 98 05/13/23 08:30 59 L 17 98/40 98 05/13/23 08:15 59 L 15 102/34 98 05/13/23 08:00 97.7 F 56 L 54 L 16 98/40 99 05/13/23 07:45 56 L 17 98/34 99 05/13/23 07:30 53 L 19 92/36 99 05/13/23 07:15 58 L 18 96/32 99 05/13/23 07:00 59 L 17 97/39 99 05/13/23 06:45 57 L 19 93/38 99 05/13/23 06:30 61 17 100/33 98 05/13/23 06:15 56 L 18 97/38 99 05/13/23 06:00 97.6 F 58 L 16 97/39 99 05/13/23 05:45 61 94/34 98 05/13/23 05:30 52 L 98/33 97 05/13/23 05:15 50 L 89/37 98 05/13/23 05:00 51 L 28 H 95/33 98 05/13/23 04:45 49 L 103/35 96 05/13/23 04:30 50 L 16 94/32 98 05/13/23 04:15 49 L 17 100/38 97 05/13/23 04:00 98.6 F 50 L 54 L 15 102/36 97 05/13/23 03:45 51 L 16 103/41 98 05/13/23 03:30 55 L 99/42 98 05/13/23 03:15 49 L 15 93/43 98 05/13/23 03:00 51 L 17 107/47 98 05/13/23 02:45 62 18 94/45 98 05/13/23 02:30 50 L 14 110/38 97 05/13/23 02:15 52 L 16 100/35 97 05/13/23 02:00 50 L 18 97/41 98 05/13/23 01:45 50 L 16 98/36 98 05/13/23 01:30 51 L 17 107/76 97 05/13/23 01:27 96.4 F L 53 L 17 107/76 97 05/13/23 01:15 51 L 17 110/48 97 05/13/23 01:00 96.3 F L 54 L 20 106/58 96 05/13/23 00:45 50 L 15 107/75 95 05/13/23 00:06 97.6 F 55 L 17 113/60 98 05/13/23 00:04 97.6 F 55 L 17 113/60 05/13/23 00:00 97.8 F 56 L 54 L 18 110/48 38 L 05/12/23 23:45 54 L 16 111/45 95 05/12/23 23:30 52 L 15 106/56 94 L 05/12/23 23:15 54 L 15 97 05/12/23 23:06 54 L 18 107/50 95 05/12/23 23:00 54 L 16 113/38 96 05/12/23 22:30 54 L 11 L 108/48 97 05/12/23 22:00 53 L 20 108/43 98 05/12/23 21:30 92.4 F L 53 L 17 102/39 98 05/12/23 21:20 92.4 F L 53 L 17 102/39 98 05/12/23 21:00 92.1 F L 51 L 17 98/41 98 05/12/23 20:50 92 F L 53 L 18 105/38 97 05/12/23 20:30 53 L 26 H 100/41 99 05/12/23 20:00 92.4 F L 53 L 54 L 22 98/37 99 05/12/23 19:30 53 L 22 96/42 97 05/12/23 19:16 52 L 18 102/41 05/12/23 19:00 55 L 15 98/39 100 05/12/23 18:45 93.9 F L 50 L 16 89/40 100 05/12/23 18:35 52 L 18 96/38 05/12/23 18:30 52 L 15 93/43 100 05/12/23 18:22 55 L 18 93/43 05/12/23 18:15 60 18 97/46 99 05/12/23 18:00 64 20 88/42 99 05/12/23 17:45 56 L 18 88/42 98 05/12/23 17:30 53 L 19 100/45 100 05/12/23 16:51 30 L 20 104/32 97 05/12/23 16:44 30 L 20 104/32 97 05/12/23 16:04 35 L 20 103/73 99 05/12/23 15:00 35 L 18 95/60 98 05/12/23 14:48 31 L 90/34 05/12/23 14:00 40 L 18 104/66 98 05/12/23 13:43 42 L 18 106/47 98 05/12/23 12:27 42 L 16 108/62 98 05/12/23 12:24 98.2 F 42 L 20 114/44 97 Intake and Output 05/12/23 05/13/23 05/13/23 22:59 06:59 14:59 Intake Total 506 731 109 Output Total 0 0 0 Balance 506 731 109 Intake: IV 87 232 109 DOPamine DRIP 800 mg In 27 72 9 Dextrose/Water 1 250ml. bag @ 2.5 MCG/KG/MIN 4. 571 mls/hr IV .Q24H [facility] Rx#:[id number] Sodium Chloride 0.9% 1, 60 160 100 000 ml @ 20 mls/hr IV . Q24H [facility] Rx#:[id number] Intake, IV Titration 87 Amount DOPamine DRIP 800 mg In 27 Dextrose/Water 1 250ml. bag @ 2.5 MCG/KG/MIN 4. 571 mls/hr IV .Q24H [facility] Rx#:[id number] Sodium Chloride 0.9% 1, 60 000 ml @ 20 mls/hr IV . Q24H [facility] Rx#:[id number] Blood Product 282 499 Rc Pheresis As-3 Unit 0 281 [id number] Rc Pheresis As-3 Unit 282 [id number] Other 50 Rc Pheresis As-3 Unit 50 [id number] Output: Urine 0 0 0 Other: Voiding Method Urinal Urinal Urinal Weight 97.522 kg 96.8 kg 96.8 kg Patient is awake, comfortable, in no acute distress Examination of the heart S1 and S2 Examination of the lungs bilateral breath sounds are heard Abdomen is soft nontender Examination lower extremities shows edema 1+ with chronic skin changes [employer] exam grossly intact Results - Lab Results Most recent lab results Calcium 9.3 mg/dL (8.4-10.2) 05/13/23 04:04 Phosphorus 6.8 mg/dL (2.5-4.5) H 05/13/23 04:04 Magnesium 2.1 mg/dL (1.6-2.3) 05/13/23 04:04 05/13/23 09:34 05/13/23 09:34 Assessment and Plan Assessment: 1. End-stage renal disease on peritoneal dialysis. Maintained on 1.5% solution every 6 hours 2. Bradycardia with no significant hyperkalemia on initial presentation. Being considered for pacemaker placement. No beta blockers on board 3. Hypotension secondary to bradycardia 4. Hyponatremia, appears mildly hypervolemic, expect improvement with continued dialysis and ultrafiltration 5. Anemia status post packed RBCs transfusion. Rule out GI bleed given the hyperkalemia in a patient whose potassium is usually in the 3-4 range. 6. History of breast cancer status post mastectomy and chemotherapy Plan: Continue current PD exchanges Treat hyperkalemia Check bladder scan for urine retention Check stool for occult blood Check iron profile and start Aranesp
[2023-05-13] MEDS: SODIUM ZIRCONIUM CYCLOSILICATE 10 GM PACKET PO ONE ×2 (11:31→14:14)
[2023-05-13 11:35] LABS: Glucose,Whole Blood 94 mg/dL (70-110)
[2023-05-13] MEDS ORDERED: DARBEPOETIN ALFA 60 MCG/0.3 ML SYRINGE SQ SCH (12:00)
[2023-05-13 12:18] LABS: Glucose,Whole Blood 104 mg/dL (70-110)
[2023-05-13] MEDS ORDERED: SODIUM BICARB 8.4% 50 ML SYR (1 MEQ/ML) IV STA (12:21)
[2023-05-13 12:45] LABS: Anisocytosis Moderate; HCT 22.1 % (39.0-53.0); HGB 7.2 gm/dL (13.0-17.5); Hypochromasia Moderate; MCH 27.8 pg (25.0-35.0); MCHC 32.5 g/dL (31.0-37.0); MCV 85.5 fL (80.0-100.0); Mean Platelet Volume 9.3; Poikilocytosis Moderate; RBC 2.59 m/uL (4.30-5.90); RDW 20.3 % (11.5-15.5); WBC 3.7 k/uL (3.8-10.6)
[2023-05-13 13:10] LABS: African American GFR (CKD) 11 (>60 ml/min/1.73 sqM); Anion Gap 10 mmol/L; Blood Urea Nitrogen 64 mg/dL (9-20); Calcium 8.9 mg/dL (8.4-10.2); Carbon Dioxide 25 mmol/L (22-30); Chloride 94 mmol/L (98-107); Glucose 64 mg/dL (74-99); Magnesium 2.1 mg/dL (1.6-2.3); Non-African American GFR(CKD) 10 (>60 ml/min/1.73 sqM); Platelet Count 77 k/uL (150-450); Potassium 4.9 mmol/L (3.5-5.1); Sodium 129 mmol/L (137-145)
--- NOTE | 2023-05-13 13:30 | P.EN ---
CODE BLUE Indication: Bradycardia Arrived on Scene to find: Patient wtih pulse and HR in the 50s Initial Rhythm: Junctional bradycardia Arrived to the room with patient minimally responsive and dry heaving. He is able to tell me that he does not feel well. He denies and chest pain, having some shortness of breath. He is undergoing peritoneal dialysis. He continues to have some issues staying awake. Per nursing K+ 5.5 this morning unable to get lokelma but did recieve insulin and dextrose Vital signs reviewed General: nontoxic, Moderate distress, appears at stated age Cardiovascular: S1S2 reg, no murmur, positive posterior tibial pulse bilateral, Lungs: Course bs bilateral, no rhonchi, no rales , no accessory muscle use Abdominal: soft, nontender to palpation, no guarding, no appreciable organomegaly Ext: no gross muscle atrophy, no edema, no contractures Neuro: CN II-XI grossly intact, no focal neuro deficits Psych: lethargic, oriented to self , appropriate affect Assessment: Symptomiatic bradyacardia with hypotension Hyperkalemia Plan: - Dr Loving presented to bedside - case d/w Dr. Campos and peng with PD, nursing to alert her if K+ redraw is >5.5 - nursing has volunteered to contact cardiology and Dr. Lopez - Stat CBC, BMP - EKG ordered and reviewed no signs of ST segment elevation or significant de pression - BS 104 Disposition: Remain in ICU A Total of 32 minutes of critical care time was spent on the complex care of this patient. This dictation was prepared using [employer] voice recognition software. Though every attempt is made to correct errors during dictation some may still exist.
--- NOTE | 2023-05-13 14:05 | CA ---
Transthoracic Echo Report Name: Shahab Guzman Age: 72 Gender: M : 1950 Exam Date: 05/13/2023 07:29 Exam Location: [facility] Ht (in): 71 Wt (lb): 215 Ordering Physician: Thuy Pablo MD ([id number]) Attending/Referring Phys: Dragger Peter Ray Procedure CPT: Indications: CAD Cardiac Hx: Technical Quality: Fair Contrast 1: Total Dose (mL): Contrast 2: Total Dose (mL): MEASUREMENTS (Male / Female) Normal Values 2D ECHO LV Diastolic Diameter PLAX 4.7 cm 4.2 - 5.9 / 3.9 - 5.3 cm LV Systolic Diameter PLAX 3.1 cm IVS Diastolic Thickness 1.2 cm 0.6 - 1.0 / 0.6 - 0.9 cm LVPW Diastolic Thickness 1.3 cm 0.6 - 1.0 / 0.6 - 0.9 cm LV Relative Wall Thickness 0.5 RV Internal Dim ED PLAX 3.7 cm LVOT Diameter 2.0 cm Aortic Root Diameter 3.4 cm LA Systolic Diameter LX 3.5 cm 3.0 - 4.0 / 2.7 - 3.8 cm LV Diastolic Volume MOD BP 71.4 cm??? 67 - 155 / 56 - 104 cm??? LV Systolic Volume MOD BP 24.2 cm??? 22 - 58 / 19 - 49 cm??? LV Ejection Fraction MOD BP 66.1 % >= 55 % LV Cardiac Index MOD BP 1119.2 cm???/min???m??? LV Diastolic Volume MOD 4C 68.9 cm??? LV Systolic Volume MOD 4C 16.7 cm??? LV Ejection Fraction MOD 4C 75.7 % LV Cardiac Index MOD 4C 1237.3 cm???/min???m??? LV Diastolic Length 4C 8.5 cm LV Systolic Length 4C 7.1 cm LV Diastolic Volume MOD 2C 65.6 cm??? LV Systolic Volume MOD 2C 34.6 cm??? LV Ejection Fraction MOD 2C 47.2 % LV Cardiac Index MOD 2C 735.2 cm???/min???m??? LV Diastolic Length 2C 7.5 cm LV Systolic Length 2C 7.0 cm LA Volume 56.6 cm??? 18 - 58 / 22 - 52 cm??? DOPPLER AV Peak Velocity 314.8 cm/s AV Peak Gradient 39.6 mmHg LVOT Peak Velocity 100.5 cm/s LVOT Peak Gradient 4.0 mmHg AV Area Cont Eq pk 1.0 cm??? MV Peak Velocity 208.6 cm/s MV Peak Gradient 17.4 mmHg MV Mean Velocity 97.1 cm/s MV Mean Gradient 5.0 mmHg MV Velocity Time Integral 74.5 cm MV Area PHT 2.5 cm??? MR Peak Velocity 257.4 cm/s MR Peak Gradient 26.5 mmHg Mitral E Point Velocity 153.2 cm/s Mitral A Point Velocity 67.7 cm/s Mitral E to A Ratio 2.3 MV Deceleration Time 485.5 ms MV E' Velocity 6.0 cm/s Mitral E to MV E' Ratio 25.7 TR Peak Velocity 258.1 cm/s TR Peak Gradient 26.6 mmHg Right Ventricular Systolic Press 32.2 mmHg PV Peak Velocity 126.7 cm/s PV Peak Gradient 6.4 mmHg FINDINGS Left Ventricle Normal LV size and wall thickness. Left ventricular ejection fraction is estimated at 50-55 %. Right Ventricle Normal right ventricular size. RVSP= 41mmhg. Right Atrium Normal right atrial size. Left Atrium Normal left atrial size. LA volume index= 26ml/m2 Mitral Valve Moderate to severe Mitral calcification. MV peak gradient= 17.4mmhg. Aortic Valve Severe AV calcification. AV peak gradient= 44mmhg. Estimated AV area= 1.0cm2. Tricuspid Valve Structurally normal tricuspid valve. Moderate TR. Pulmonic Valve Structurally normal pulmonic valve. No pulmonic regurgitation. Pericardium Not well visualized. Aorta Normal size aortic root . CONCLUSIONS Normal LV systolic function Mild pulmonary hypertension Mitral annular calcification. Mild mitral stenosis Aortic sclerosis with moderate to severe aortic stenosis. The peak systolic velocity was 4 m/s. The mean gradient was not measured Previewed by: Dr. Tyrell Herman MD (Electronically Signed) Final Date: 13 May 2023 14:04
[2023-05-13] MEDS: DOPamine DRIP 800 MG in DEXTROSE/WATER 1 250ML.BAG IV ONE (15:37)
--- NOTE | 2023-05-13 15:37 | US ---
EXAMINATION TYPE: US venous doppler duplex LE LT DATE OF EXAM: 05/13/2023 3:27 PM COMPARISON: Bilateral lower extremity venous ultrasound 01/17/2023 CLINICAL INDICATION: Male, 72 years old with history of unilateral swelling of LLE; Left leg swelling on ICU patient SIDE PERFORMED: Left TECHNIQUE: The lower extremity deep venous system is examined utilizing real time linear array sonog antonia with graded compression, doppler sonography and color-flow sonography. VESSELS IMAGED: Common Femoral Vein Deep Femoral Vein Greater Saphenous Vein * Femoral Vein Popliteal Vein Small Saphenous Vein * Proximal Calf Veins (* superficial vessels) Left Leg: Negative for DVT unable to see CFV and GSV due to extensive edema IMPRESSION: No deep venous thrombosis of the visualized left lower extremity. Unable to visualize the common femo ral and greater saphenous veins due to extensive edema.
[2023-05-13 15:51] LABS: % Iron Saturation 85.42 (15.00-50.00)
--- NOTE | 2023-05-13 16:01 | P.HPIM ---
History of Present Illness H&P Date: 05/12/23 Chief Complaint: Bradycardia severe anemia. HISTORY OF PRESENT ILLNESS: this is a 72-year-old male with a previous medical history significant for hypertension and hypertensive cardiovascular disease with left ventricular hypertrophy, hyperlipidemia, diabetes mellitus type 2, with diabetic polyneuropathy, history of coronary artery disease status post coronary artery bypass graft x3 followed by stent, history of atrial fibrillation status post ablation on long-term eliquis, history of meningioma status post resection back in April 2013 with left-sided weakness, end-stage renal disease on peritoneal dialysis, history of anemia of chronic kidney disease, history of secondary hyperparathyroidism,history of breast cancer on the right side status post right mastectomy followed by chemotherapy, history of aortic valve stenosis, patient was getting weaker over the last few days prior to his admission, patient has not been eating or drinking very much, could not do his dialysis on Thursday on Thursday morning he was supposed to go see his executive coordinator oncologist Dr. Cameron, however the patient was unresponsive, so the ended up calling 911, bringing the patient to the emergency department at [facility], patient was bradycardic in the low 40s, he was found to have a significant anemia with a hemoglobin of 5.9, he was also pancytopenic with a white count of 1.7 platelet count of 79,000, patient was admitted to the hospital for evaluation had a go a guaiac stool negative, he was admitted to intensive care unit he was started on a dopamine drip, he was seen in consultation by cardiology who recommended to continue dopamine drip for now, monitor the patient for possible permanent pacemaker placement. Patient was admitted to the ICU, he was seen in consultation by pulmonary and critical care medicine, patient overall prognosis very guarded, this was discussed with his . .REVIEW OF SYSTEMS: Constitutional: No documented fever, no chills, no night sweats. No weight change. positive for weakness, fatigue or lethargy. daytime sleepiness. HEENT: No headache. right eye blind or double vision, no loss of vision. No loss of Hearing, no ringing in the ears, no dizziness. No nasal drainage or congestion. No epistaxis. No sore throat. Lungs: positive for shortness of breath, no cough, no sputum production. No wheezing. Reports dyspnea with activity. Cardiovascular: No chest pain, reported lower extremity edema. No palpitations. Reported paroxysmal nocturnal dyspnea. Reports orthopnea. No lightheadedness or dizziness. No syncopal episodes. Abdominal: Reports no abdominal pain. positive for nausea, no vomiting. R eports occasional diarrhea. No constipation. No bloody or tarry stools reports loss of appetite. Genitourinary: No dysuria, increased frequency, urgency. No urinary retention. Musculoskeletal: No myalgias. positive for chronic left sided weakness, positive for gait dysfunction, no frequent falls. positive for back pain. positive for neck pain. Integumentary: right mastectomy incision is clean with LUISITO in place no lesions. No rash or pruritus. No unusual bruising. No change in hair or nails. Neurologic: No aphasia. No facial droop. No change in mentation. No head injury. No headache, positive for left sided weakness and left foot drop. Psychiatric: positive for depression. No anxiety. No mood swings. Endocrine: No abnormal blood sugars. No weight change. PAST MEDICAL HISTORY: Coronary artery disease status post coronary artery bypass graft 3 with PCI. Hypertension and hypertensive cardio vascular disease. Hyperlipidemia. Diabetes mellitus type 2. History of meningioma status post resection April 2013 with resultant left- sided weakness. Paroxysmal Atrial fibrillation. Diabetic polyneuropathy. Enlarged prostate. GERD. DVT. Osteoarthritis. Chronic kidney disease stage IV. Anemia of chronic kidney disease. Secondary hyperparathyroidism. Ductal carcinoma right breast Aortic valve stenosis. PAST SURGICAL HISTORY: CABG 3. Left heart catheterization with PCI. Bilateral cataract surgery with implants. Right arthroscopic knee surgery. Meningioma resection with resultant left-sided weakness. Tonsillectomy and adenoidectomy. Cholecystectomy. EGD and colonoscopy. Cardiac ablation. IVC [place] filter placement. [id number] SOCIAL HISTORY: Patient is a lifelong nonsmoker he denies any history of drinking he denies any history of drug use or abuse he currently lives with his , he uses a sliding board, he uses a wheelchair and a scooter to ambulate around. FAMILY HISTORY: Mother at age of 92 from natural causes, father at age of 83 from co ngestive heart failure, patient has one adopted brother, 2 sisters who are okay, patient has one son with no major medical problems and one daughter with hypothyroidism. PHYSICAL EXAMINATION: General: this is a 72-year-old male who is lying down in bed in bed appears to be lethargic. HEENT: Head is atraumatic, normocephalic, pupils were equal round reactive to light and recommendation, extraocular muscle movement were intact, sclera nonicteric, conjunctivae were pale, mucous membranes of the mouth are somewhat dry. Neck: Supple, no JVP, normal carotid upstroke bilaterally, no lymphadenopathy. Chest: Decreased breath sounds at the bases few rhonchi, no expiratory wheezes, no chest wall tenderness, no intercostal retractions. Heart: First heart sound is normal, second heart sounds normal, irregularly irregular, there is systolic ejection murmur 2/6 located in the left sternal border. Abdomen: Soft, nontender, nondistended, positive bowel sounds, positive for PD catheter Extremities: There is +2 edema to the bilateral lower extremities left greater than right no calf tenderness DP +2 bilaterally. Neurologic examination: Patient is awake alert and oriented X1 , cranial nerves II-12 appear grossly intact, there is left-sided weakness with left foot drop. ASSESSMENT AND PLAN: 1. Bradycardia in the form of junctional rhythm in a patient with a prior history of atrial fibrillation. Patient was started on dopamine drip, he was seen in consultation by cardiology was recommended for possible permanent pacemaker the patient does not recover. 2. Metabolic encephalopathy likely related to bradycardia poor oral intake of fluid and the hyperkalemia. Patient will be maintained on peritoneal dialysis, continue treatment as in Paragraph#1 3. Right-sided pleural effusion with compressive atelectasis . Stable. 4. Pancytopenia with severe anemia and thrombocytopenia and leukopenia as well. Likely related to myelodysplastic syndrome. Consult hematology oncology. 6. History of CAD post CABG as well as PCI and stent placement. Continue patient on pravastatin 40 mg at bedtime. 7. History of paroxysmal atrial fibrillation. Hold off Eliquis 8. Hypertension and hypertensive cardiovascular disease. monitor the patient blood pressure very closely. 9. Hyperlipidemia. Continue patient on pravastatin 40 mg at bedtime, monitor lipid panel, keep LDL 55-70. 10. ESRD. we will continue with PD. 11. History of enlarged prostate. Continue Flomax 0.4 mg once every day, monitor for urinary retention. 12. Diabetes mellitus type 2. Continue Lantus 24 units at bedtime, monitor the patient blood glucose level and at bedtime with NovoLog scale 13. Diabetic polyneuropathy. Stable. 14. History of DVT status post IVC filter placement, off Eliquis 15. Chronic gout. Continue patient on allopurinol 100 mg orally once every day. 16. History of meningioma with left-sided weakness. Physical therapy evaluation. Admit to inpatient. Estimate a length of stay 2 midnights. Patient is DNR . Past Medical History Past Medical History: Atrial Fibrillation, Atrial Flutter, Coronary Artery Disease (CAD), Cancer, Diabetes Mellitus, Deep Vein Thrombosis (DVT), Eye Disorder, GERD/Reflux, Hyperlipidemia, Hypertension, Myocardial Infarction (RI), Neurologic Disorder, Osteoarthritis (OA), Prostate Disorder, Renal Disease, Sleep Apnea/CPAP/BIPAP Additional Past Medical History / Comment(s): currently has Hemodialysis MWF-4 Hrs-has port left shoulder., rt breast [place]-Spring 2021,Blind in right eye. Hx encephalopathy, meningioma with left sided weakness, cannot use left leg, wheelchair bound. PT CAN'T HAVE ANY VACCINES THAT ARE LIVE VIRUSES. PLEASE USE PAPER TAPE ONLY(PT HAS THIN SKIN). uses slide board at home to transfer pt to w/c, with 2 person assist pt can stand/pivot to chair,uses cpap, uses O2 @ 2l [place] prn Last Myocardial Infarction Date:: 02-11-2005 History of Any Multi-Drug Resistant Organisms: None Reported Past Surgical History: Adenoidectomy, Breast Surgery, Cardiac Ablation, Cholecystectomy, Coronary Bypass/CABG, Heart Catheterization With Stent, Orthopedic Surgery, Tonsillectomy Additional Past Surgical History / Comment(s): Triple bypass, Meningioma Removed from Brain 04/2013, peg tube- removed 9 years ago, [place] FILTER, BILATERAL CATARACTS- LENS IMPLANTS, COLONOSCOPY/POLYPECTOMY, RIGHT KNEE ARTHROSCOPY, 07/21/22 right breast mastectomy Past Anesthesia/Blood Transfusion Reactions: No Reported Reaction Date of Last Stent Placement:: 2004 Past Psychological History: Depression Smoking Status: Never smoker - Past Family History Father History Unknown: Yes Family Medical History: Congestive Heart Failure (CHF) Mother History Unknown: Yes Additional Family Medical History / Comment(s): at age 90 Medications and Allergies Home Medications Medication Instructions Recorded Confirmed Type Tamsulosin HCl [Flomax] 0.4 mg PO BID 06/19/15 05/12/23 History amLODIPine [Norvasc] 5 mg PO BID 07/09/16 05/12/23 History Pravastatin Sodium [Pravachol] 40 mg PO HS 03/21/21 05/12/23 History Lidocaine-Prilocaine Cream [Emla 1 applic TOPICAL DAILY PRN 06/03/22 05/12/23 History Cream 2.5%/2.5%] INSULIN ASPART (NovoLOG) [NovoLOG See Protocol SQ ACHS PRN 07/31/22 05/12/23 History (formulary)] Insulin Glargine,Hum.rec.anlog 35 units SQ HS 09/17/22 05/12/23 History [Lantus Solostar Pen] Torsemide [Demadex] 20 mg PO BID 09/17/22 05/12/23 History Apixaban [Eliquis] 5 mg PO DAILY 01/04/23 05/12/23 History Lactulose 10 gm PO DAILY PRN 01/04/23 05/12/23 History Ciclopirox Nail Lacquer 8% 1 applic TOPICAL DIRECTED 05/12/23 05/12/23 History Furosemide [Lasix] 40 mg PO BID 05/12/23 05/12/23 History Pramipexole [Mirapex] 0.25 mg PO HS PRN 05/12/23 05/12/23 History Allergies Allergy/AdvReac Type Severity Reaction Status Date / Time Penicillins Allergy Unknown Rash/Hives Verified 05/12/23 15:22 adhesive AdvReac skin Verified 05/12/23 15:22 tears-paper tape is better but still will tear Physical Exam Vitals: Vital Signs Temp Pulse Resp BP Pulse Ox 05/12/23 16:51 30 L 20 104/32 97 05/12/23 16:44 30 L 20 104/32 97 05/12/23 16:04 35 L 20 103/73 99 05/12/23 15:00 35 L 18 95/60 98 05/12/23 14:48 31 L 90/34 05/12/23 14:00 40 L 18 104/66 98 05/12/23 13:43 42 L 18 106/47 98 05/12/23 12:27 42 L 16 108/62 98 05/12/23 12:24 98.2 F 42 L 20 114/44 97 Intake and Output 05/12/23 05/12/23 05/12/23 06:59 14:59 22:59 Other: Weight 97.522 kg Results CBC & Chem 7: 05/13/23 12:22 05/13/23 12:22 Labs: Abnormal Lab Results - Last 24 Hours (Table) 05/12/23 05/12/23 05/12/23 Range/Units 12:27 12:37 17:12 WBC 1.2 L* (3.8-10.6) k/uL RBC 2.03 L (4.30-5.90) m/uL Hgb 5.6 L* (13.0-17.5) gm/dL Hct 17.8 L* (39.0-53.0) % RDW 20.0 H (11.5-15.5) % Plt Count 62 L D (150-450) k/uL Neutrophils # 0.9 L (1.3-7.7) k/uL Lymphocytes # 0.1 L (1.0-4.8) k/uL Sodium 127 L (137-145) mmol/L Chloride 91 L (98-107) mmol/L BUN 60 H (9-20) mg/dL Creatinine 5.58 H (0.66-1.25) mg/dL Glucose 147 H (74-99) mg/dL POC Glucose (mg/dL) 227 H (70-110) mg/dL ALT 61 H (4-49) U/L Total Protein 4.7 L (6.3-8.2) g/dL Albumin 2.7 L (3.5-5.0) g/dL
[2023-05-13 16:07] LABS: Glucose,Whole Blood 105 mg/dL (70-110)
[2023-05-13 18:16] LABS: Anisocytosis Moderate; HCT 23.6 % (39.0-53.0); HGB 7.7 gm/dL (13.0-17.5); Hypochromasia Moderate; MCH 27.8 pg (25.0-35.0); MCHC 32.6 g/dL (31.0-37.0); MCV 85.2 fL (80.0-100.0); Mean Platelet Volume 10.1; Poikilocytosis Moderate; RBC 2.78 m/uL (4.30-5.90); RDW 20.3 % (11.5-15.5)
[2023-05-13 18:20] LABS: Platelet Count 81 k/uL (150-450)
[2023-05-13] MEDS: PRAVASTATIN SODIUM 40 MG TAB PO SCH (19:59)
[2023-05-13] MEDS: INSULIN DETEMIR (LEVEMIR) 100 UNIT/ML SYR SQ SCH (20:00)
[2023-05-13] MEDS: SODIUM CHLORIDE 0.9% 1,000 ML IV SCH (20:00)
[2023-05-13] MEDS: DOPamine DRIP 800 MG in DEXTROSE/WATER 1 250ML.BAG IV SCH (20:00)
[2023-05-13 20:22] LABS: Glucose,Whole Blood 117 mg/dL (70-110)
[2023-05-14] MEDS: NOREPINEPHRINE 4 MG in SODIUM CHLORIDE 0.9% 250 ML IV SCH (00:03)
[2023-05-14] MEDS: DIALYSIS (PERIT 1.5%) 2,000 ML 30 G/2,000 ML BAG INTRAPERIT SCH ×3 (00:32→18:08)
[2023-05-14 05:02] LABS: Anisocytosis Moderate; Basophils % (A) 0 %; Eosinophils % (A) 1 %; HCT 22.6 % (39.0-53.0); HGB 7.2 gm/dL (13.0-17.5); Hypochromasia Marked; Lymphocytes # (A) 0.2 k/uL (1.0-4.8); Lymphocytes % (A) 5 %; MCH 27.7 pg (25.0-35.0); MCV 86.3 fL (80.0-100.0); Mean Platelet Volume 9.2; Monocytes # (A) 0.3 k/uL (0-1.0); Monocytes % (A) 6 %; Neutrophils # (A) 3.4 k/uL (1.3-7.7); Neutrophils % (A) 85 %; Poikilocytosis Moderate; RBC 2.62 m/uL (4.30-5.90); RDW 20.7 % (11.5-15.5)
[2023-05-14 05:04] LABS: Platelet Count 86 k/uL (150-450)
[2023-05-14 05:18] LABS: African American GFR (CKD) 12 (>60 ml/min/1.73 sqM); Anion Gap 8 mmol/L; Blood Urea Nitrogen 67 mg/dL (9-20); Calcium 8.7 mg/dL (8.4-10.2); Carbon Dioxide 26 mmol/L (22-30); Chloride 93 mmol/L (98-107); Glucose 103 mg/dL (74-99); Non-African American GFR(CKD) 10 (>60 ml/min/1.73 sqM); Phosphorus 6.1 mg/dL (2.5-4.5); Potassium 5.3 mmol/L (3.5-5.1); Sodium 127 mmol/L (137-145)
[2023-05-14 06:37] LABS: Glucose,Whole Blood 112 mg/dL (70-110)
--- NOTE | 2023-05-14 07:19 | P.PN ---
Subjective Progress Note Date: 05/14/23 PROGRESS NOTE The patient is a 72-year-old male with a known history of CAD, status post CABG, prior history of atrial fibrillation, end-stage renal disease on peritoneal dialysis, diabetes who presented because of progressive fatigue and weakness and bradycardia. In the emergency room he was noted to be bradycardic. The EKGs available to me shows atrial fibrillation with probable junctional rhythm at times with a rate in the 30-40. He has underwent CABG in 2004, his left ventricle systolic function has been preserved. He has chronic right-sided effusion. He has a prior history of breast cancer and has received chemotherapy. He also has a history of [id number] aortic stenosis. He denies any chest discomfort but he has been feeling progressively more fatigued with lack of energy over the last week or so. According to his his speech was not as good the last few days. He has no nausea or vomiting. His activity is very limited following encephalitis and surgery. He was started on IV dopamine in the emergency room with improvement in his rate. His blood pressure is on the low side but stable. He has a history of hypertension, hyperlipidemia and diabetes mellitus. He was noted to be severely anemic with a hemoglobin of 5.6 and evidence of pancytopenia. His troponin was less than 0.012. His left ventricle systolic function in the past has been preserved. May 13 The patient remained stable, he continues to be on IV dopamine. He received transfusion yesterday. His numbers are better today. He is receiving peritoneal dialysis. He continues to be in junctional rhythm. There is no evidence of long pauses or ventricular ectopic activity. His blood pressure is stable. He denies any chest discomfort, dizziness or palpitations. According to him he feels better. May 14: The patient is awake and alert, he appears to be in sinus mechanism with first- degree AV block. Yesterday had an episode of bradycardia and hypotension. After discussion with the she does not want to proceed with permanent pacemaker implantation if indicated. He continues to be on IV dopamine. His echocardiogram showed a normal systolic function with moderate severe aortic stenosis. There is no evidence of ventricular ectopic activity Medications: Insulin, pravastatin 40 mg daily, IV dopamine PHYSICAL EXAMINATION: Blood pressure 110/43 heart rate 79 LUNGS: Clear to auscultation anteriorly HEART: Regular rate and rhythm, S1, S2. No S3. Systolic ejection murmur 3/6 at the base with a holosystolic murmur at the apex ABDOMEN: Soft, nontender, no organomegaly, dialysis catheter in place EXTREMETIES: +1-2 edema more on the left side LAB: WBC 4.0, hemoglobin 7.2, platelets 86, potassium 5.3, BUN 67, creatinine 5.13. IMPRESSION: 1. Bradycardia with junctional rhythm in a patient with known history of atrial fibrillation, maintained on IV dopamine, the patient is back in sinus mechanism with first-degree block 2. Severe pancytopenia, etiology unclear, improved after transfusion 3. Status post CABG 4. Aortic valve murmur consistent with aortic stenosis, moderate severe 5. End-stage kidney disease 6. Hyperlipidemia 7. Diabetes mellitus 8. History of encephalitis and meningioma his left sided weakness PLAN: 1. Wean IV nitroglycerin 2. Follow hemoglobin to make a decision about restarting anticoagulation 3. The patient appears to be a high risk for any intervention regarding his aortic valve. The feels that he is not a candidate for any aggressive workup in view of his overall status. Unfortunately the long-term prognosis is guarded. Objective - Vital Signs Vital signs: Vital Signs Temp 97.9 F 05/14/23 04:00 Pulse 79 05/14/23 07:00 Resp 16 05/14/23 07:00 BP 110/43 05/14/23 07:00 Pulse Ox 99 05/14/23 07:00 FiO2 40 05/14/23 00:15 Intake & Output 05/13/23 05/14/23 05/14/23 18:59 06:59 18:59 Intake Total 395.067 401.645 20 Output Total 275 0 0 Balance 120.067 401.645 20 Weight 96.8 kg 101.6 kg Intake: IV 249 240 20 DOPamine DRIP 800 mg In 9 Dextrose/Water 1 250ml. bag @ 2.5 MCG/KG/MIN 4. 571 mls/hr IV .Q24H [facility] Rx#:[id number] Sodium Chloride 0.9% 1, 240 240 20 000 ml @ 20 mls/hr IV . Q24H [facility] Rx#:[id number] Intake, IV Titration 146.067 161.645 Amount DOPamine DRIP 800 mg In 146.067 Dextrose/Water 1 250ml. bag @ 2.5 MCG/KG/MIN 4. 571 mls/hr IV .Q24H [facility] Rx#:[id number] DOPamine DRIP 800 mg In 62.315 Dextrose/Water 1 250ml. bag @ 5 MCG/KG/MIN 9.075 mls/hr IV .Q24H [facility] Rx#: [id number] Norepinephrine 4 mg In 99.330 Sodium Chloride 0.9% 250 ml @ 0.03 MCG/KG/MIN 11. 064 mls/hr IV .[id number] [facility] Rx#:[id number] Output: Urine 275 0 0 Other: Voiding Method Urinal Urinal - Labs CBC & Chem 7: 05/14/23 04:24 05/14/23 04:24 Labs: Abnormal Lab Results - Last 24 Hours (Table) 05/13/23 05/13/23 05/13/23 Range/Units 09:34 09:34 12:22 WBC 3.7 L (3.8-10.6) k/uL RBC 2.63 L 2.59 L (4.30-5.90) m/uL Hgb 7.3 L 7.2 L (13.0-17.5) gm/dL Hct 22.6 L 22.1 L (39.0-53.0) % RDW 20.5 H 20.3 H (11.5-15.5) % Plt Count 81 L 77 L (150-450) k/uL Lymphocytes # (1.0-4.8) k/uL Retic Count 3.5 H (0.5-2.0) % Sodium (137-145) mmol/L Potassium 5.5 H (3.5-5.1) mmol/L Chloride (98-107) mmol/L BUN (9-20) mg/dL Creatinine (0.66-1.25) mg/dL Glucose (74-99) mg/dL POC Glucose (mg/dL) (70-110) mg/dL Phosphorus (2.5-4.5) mg/dL Iron 334 H (65-175) UG/DL % Saturation 85.42 H (15.00-50.00) 05/13/23 05/13/23 05/13/23 Range/Units 12:22 18:03 20:20 WBC (3.8-10.6) k/uL RBC 2.78 L (4.30-5.90) m/uL Hgb 7.7 L (13.0-17.5) gm/dL Hct 23.6 L (39.0-53.0) % RDW 20.3 H (11.5-15.5) % Plt Count 81 L (150-450) k/uL Lymphocytes # (1.0-4.8) k/uL Retic Count (0.5-2.0) % Sodium 129 L (137-145) mmol/L Potassium (3.5-5.1) mmol/L Chloride 94 L (98-107) mmol/L BUN 64 H (9-20) mg/dL Creatinine 5.39 H (0.66-1.25) mg/dL Glucose 64 L (74-99) mg/dL POC Glucose (mg/dL) 117 H (70-110) mg/dL Phosphorus (2.5-4.5) mg/dL Iron (65-175) UG/DL % Saturation (15.00-50.00) 05/14/23 05/14/23 05/14/23 Range/Units 04:24 04:24 06:36 WBC (3.8-10.6) k/uL RBC 2.62 L (4.30-5.90) m/uL Hgb 7.2 L (13.0-17.5) gm/dL Hct 22.6 L (39.0-53.0) % RDW 20.7 H (11.5-15.5) % Plt Count 86 L (150-450) k/uL Lymphocytes # 0.2 L (1.0-4.8) k/uL Retic Count (0.5-2.0) % Sodium 127 L (137-145) mmol/L Potassium 5.3 H (3.5-5.1) mmol/L Chloride 93 L (98-107) mmol/L BUN 67 H (9-20) mg/dL Creatinine 5.13 H (0.66-1.25) mg/dL Glucose 103 H (74-99) mg/dL POC Glucose (mg/dL) 112 H (70-110) mg/dL Phosphorus 6.1 H (2.5-4.5) mg/dL Iron (65-175) UG/DL % Saturation (15.00-50.00)
[2023-05-14] MEDS: PANTOPRAZOLE 40 MG/10 ML VIAL IVP SCH (08:22)
[2023-05-14] MEDS ORDERED: HEPARIN SODIUM,PORCINE 5,000 UNIT/ML 1 ML VIAL SQ SCH (09:00)
--- NOTE | 2023-05-14 10:56 | P.PN ---
Subjective Patient is seen for follow-up for end-stage renal disease. Currently maintained on peritoneal dialysis. Patient is tolerating dialysis well. He had no significant UF with the last 2 exchanges. Currently off of dopamine. Heart rate staying around 75 bpm. Serum potassium is 5.3. No active bleeding noted. Hemoglobin 7.2 g/dL today. No complaints of shortness of breath. Objective - Vital Signs Vital signs: Vital Signs Temp 97.7 F 05/14/23 07:32 Pulse 78 05/14/23 08:00 Resp 15 05/14/23 08:00 BP 117/53 05/14/23 08:00 Pulse Ox 100 05/14/23 08:00 FiO2 40 05/14/23 00:15 Intake & Output 05/13/23 05/14/23 05/14/23 18:59 06:59 18:59 Intake Total 395.067 401.645 104.762 Output Total 275 0 0 Balance 120.067 401.645 104.762 Weight 96.8 kg 101.6 kg Intake: IV 249 240 90 DOPamine DRIP 800 mg In 9 Dextrose/Water 1 250ml. bag @ 2.5 MCG/KG/MIN 4. 571 mls/hr IV .Q24H [facility] Rx#:[id number] Sodium Chloride 0.9% 1, 240 240 40 000 ml @ 20 mls/hr IV . Q24H [facility] Rx#:[id number] cefTRIAXone 1 gm In 50 Sodium Chloride 0.9% 50 ml @ 100 mls/hr IVPB Q24HR [facility] Rx#:[id number] Intake, IV Titration 146.067 161.645 14.762 Amount DOPamine DRIP 800 mg In 146.067 Dextrose/Water 1 250ml. bag @ 2.5 MCG/KG/MIN 4. 571 mls/hr IV .Q24H [facility] Rx#:[id number] DOPamine DRIP 800 mg In 62.315 14.762 Dextrose/Water 1 250ml. bag @ 5 MCG/KG/MIN 9.075 mls/hr IV .Q24H [facility] Rx#: [id number] Norepinephrine 4 mg In 99.330 Sodium Chloride 0.9% 250 ml @ 0.03 MCG/KG/MIN 11. 064 mls/hr IV .[id number] [facility] Rx#:[id number] Output: Urine 275 0 0 Other: Voiding Method Urinal Urinal Urinal - Exam Patient is awake, comfortable, no acute distress Able to communicate fairly well today. Examination of the heart S1 and S2 Examination of the lungs bilateral breath sounds are heard with decreased breath sounds at the bases Abdomen is soft nontender Examination lower extremities shows trace edema bilaterally [employer] exam grossly intact - Labs CBC & Chem 7: 05/14/23 04:24 05/14/23 04:24 Labs: Abnormal Lab Results - Last 24 Hours (Table) 05/13/23 05/13/23 05/13/23 Range/Units 09:34 12:22 12:22 WBC 3.7 L (3.8-10.6) k/uL RBC 2.59 L (4.30-5.90) m/uL Hgb 7.2 L (13.0-17.5) gm/dL Hct 22.1 L (39.0-53.0) % RDW 20.3 H (11.5-15.5) % Plt Count 77 L (150-450) k/uL Lymphocytes # (1.0-4.8) k/uL Sodium 129 L (137-145) mmol/L Potassium (3.5-5.1) mmol/L Chloride 94 L (98-107) mmol/L BUN 64 H (9-20) mg/dL Creatinine 5.39 H (0.66-1.25) mg/dL Glucose 64 L (74-99) mg/dL POC Glucose (mg/dL) (70-110) mg/dL Phosphorus (2.5-4.5) mg/dL Iron 334 H (65-175) UG/DL % Saturation 85.42 H (15.00-50.00) 05/13/23 05/13/23 05/14/23 Range/Units 18:03 20:20 04:24 WBC (3.8-10.6) k/uL RBC 2.78 L 2.62 L (4.30-5.90) m/uL Hgb 7.7 L 7.2 L (13.0-17.5) gm/dL Hct 23.6 L 22.6 L (39.0-53.0) % RDW 20.3 H 20.7 H (11.5-15.5) % Plt Count 81 L 86 L (150-450) k/uL Lymphocytes # 0.2 L (1.0-4.8) k/uL Sodium (137-145) mmol/L Potassium (3.5-5.1) mmol/L Chloride (98-107) mmol/L BUN (9-20) mg/dL Creatinine (0.66-1.25) mg/dL Glucose (74-99) mg/dL POC Glucose (mg/dL) 117 H (70-110) mg/dL Phosphorus (2.5-4.5) mg/dL Iron (65-175) UG/DL % Saturation (15.00-50.00) 05/14/23 05/14/23 Range/Units 04:24 06:36 WBC (3.8-10.6) k/uL RBC (4.30-5.90) m/uL Hgb (13.0-17.5) gm/dL Hct (39.0-53.0) % RDW (11.5-15.5) % Plt Count (150-450) k/uL Lymphocytes # (1.0-4.8) k/uL Sodium 127 L (137-145) mmol/L Potassium 5.3 H (3.5-5.1) mmol/L Chloride 93 L (98-107) mmol/L BUN 67 H (9-20) mg/dL Creatinine 5.13 H (0.66-1.25) mg/dL Glucose 103 H (74-99) mg/dL POC Glucose (mg/dL) 112 H (70-110) mg/dL Phosphorus 6.1 H (2.5-4.5) mg/dL Iron (65-175) UG/DL % Saturation (15.00-50.00) Assessment and Plan Assessment: 1. End-stage renal disease on peritoneal dialysis. Maintained on 1.5% solution every 6 hours 2. Bradycardia with no significant hyperkalemia on initial presentation. Being considered for pacemaker placement. No beta blockers on board 3. Hypotension secondary to bradycardia 4. Hyponatremia, appears mildly hypervolemic, expect improvement with continued dialysis and ultrafiltration 5. Anemia status post packed RBCs transfusion. Rule out GI bleed. 6. History of breast cancer status post mastectomy and chemotherapy Plan: Increase UF and change to 2.5% solution alternating with 1.5% solution Repeat potassium later this afternoon Continue with Aranesp
--- NOTE | 2023-05-14 11:05 | P.PN ---
Subjective Progress Note Date: 05/14/23 Principal diagnosis: weakness, bradycardia In f/u today pt is at bedside, pt answers some questions appropriately but is very slow to respond, there is mild confusion, reports he is not acting like himself. Denies pain or SOB. Objective - Vital Signs Vital signs: Vital Signs Temp 97.7 F 05/14/23 07:32 Pulse 78 05/14/23 08:00 Resp 15 05/14/23 08:00 BP 117/53 05/14/23 08:00 Pulse Ox 100 05/14/23 08:00 FiO2 40 05/14/23 00:15 Intake & Output 05/13/23 05/14/23 05/14/23 18:59 06:59 18:59 Intake Total 395.067 401.645 104.762 Output Total 275 0 0 Balance 120.067 401.645 104.762 Weight 96.8 kg 101.6 kg Intake: IV 249 240 90 DOPamine DRIP 800 mg In 9 Dextrose/Water 1 250ml. bag @ 2.5 MCG/KG/MIN 4. 571 mls/hr IV .Q24H [facility] Rx#:[id number] Sodium Chloride 0.9% 1, 240 240 40 000 ml @ 20 mls/hr IV . Q24H [facility] Rx#:[id number] cefTRIAXone 1 gm In 50 Sodium Chloride 0.9% 50 ml @ 100 mls/hr IVPB Q24HR [facility] Rx#:[id number] Intake, IV Titration 146.067 161.645 14.762 Amount DOPamine DRIP 800 mg In 146.067 Dextrose/Water 1 250ml. bag @ 2.5 MCG/KG/MIN 4. 571 mls/hr IV .Q24H [facility] Rx#:[id number] DOPamine DRIP 800 mg In 62.315 14.762 Dextrose/Water 1 250ml. bag @ 5 MCG/KG/MIN 9.075 mls/hr IV .Q24H [facility] Rx#: [id number] Norepinephrine 4 mg In 99.330 Sodium Chloride 0.9% 250 ml @ 0.03 MCG/KG/MIN 11. 064 mls/hr IV .[id number] [facility] Rx#:[id number] Output: Urine 275 0 0 Other: Voiding Method Urinal Urinal Urinal - Constitutional General appearance: Present: cooperative, no acute distress, obese - EENT EENT Comment(s): Very dry mouth. Lt pinpoint pupil, rt eye cloudy, deformed lens Eyes: Present: anicteric sclerae, EOMI ENT: Present: hearing grossly normal - Respiratory Details: resp even and unlabored - Cardiovascular Rhythm: regular Heart sounds: normal: S1, S2 - Peripheral edema leg Peripheral Edema: right: 1+, left: 3+, bilateral: Pitting - Gastrointestinal General gastrointestinal: Present: normal bowel sounds, soft - Neurologic Neurologic: Present: CNII-XII intact - Musculoskeletal Musculoskeletal: Present: generalized weakness - Psychiatric Psychiatric Comment(s): drifts off too sleep while talking, will stare off after a question, may have to ask twice before he answers - Labs CBC & Chem 7: 05/14/23 04:24 05/14/23 04:24 Labs: Abnormal Lab Results - Last 24 Hours (Table) 05/13/23 05/13/23 05/13/23 Range/Units 09:34 12:22 12:22 WBC 3.7 L (3.8-10.6) k/uL RBC 2.59 L (4.30-5.90) m/uL Hgb 7.2 L (13.0-17.5) gm/dL Hct 22.1 L (39.0-53.0) % RDW 20.3 H (11.5-15.5) % Plt Count 77 L (150-450) k/uL Lymphocytes # (1.0-4.8) k/uL Sodium 129 L (137-145) mmol/L Potassium 5.5 H (3.5-5.1) mmol/L Chloride 94 L (98-107) mmol/L BUN 64 H (9-20) mg/dL Creatinine 5.39 H (0.66-1.25) mg/dL Glucose 64 L (74-99) mg/dL POC Glucose (mg/dL) (70-110) mg/dL Phosphorus (2.5-4.5) mg/dL Iron 334 H (65-175) UG/DL % Saturation 85.42 H (15.00-50.00) 05/13/23 05/13/23 05/14/23 Range/Units 18:03 20:20 04:24 WBC (3.8-10.6) k/uL RBC 2.78 L 2.62 L (4.30-5.90) m/uL Hgb 7.7 L 7.2 L (13.0-17.5) gm/dL Hct 23.6 L 22.6 L (39.0-53.0) % RDW 20.3 H 20.7 H (11.5-15.5) % Plt Count 81 L 86 L (150-450) k/uL Lymphocytes # 0.2 L (1.0-4.8) k/uL Sodium (137-145) mmol/L Potassium (3.5-5.1) mmol/L Chloride (98-107) mmol/L BUN (9-20) mg/dL Creatinine (0.66-1.25) mg/dL Glucose (74-99) mg/dL POC Glucose (mg/dL) 117 H (70-110) mg/dL Phosphorus (2.5-4.5) mg/dL Iron (65-175) UG/DL % Saturation (15.00-50.00) 05/14/23 05/14/23 Range/Units 04:24 06:36 WBC (3.8-10.6) k/uL RBC (4.30-5.90) m/uL Hgb (13.0-17.5) gm/dL Hct (39.0-53.0) % RDW (11.5-15.5) % Plt Count (150-450) k/uL Lymphocytes # (1.0-4.8) k/uL Sodium 127 L (137-145) mmol/L Potassium 5.3 H (3.5-5.1) mmol/L Chloride 93 L (98-107) mmol/L BUN 67 H (9-20) mg/dL Creatinine 5.13 H (0.66-1.25) mg/dL Glucose 103 H (74-99) mg/dL POC Glucose (mg/dL) 112 H (70-110) mg/dL Phosphorus 6.1 H (2.5-4.5) mg/dL Iron (65-175) UG/DL % Saturation (15.00-50.00) - Imaging and Cardiology Venous US: report reviewed Assessment and Plan (1) Pancytopenia Current Visit: Yes Status: Acute Priority: High Code(s): D61.818 - OTHER PANCYTOPENIA SNOMED Code(s): 755438635 (2) Breast cancer in male Current Visit: No Status: Chronic Priority: Low Code(s): C50.929 - MALIGNANT NEOPLASM OF [facility] SITE OF UNSPECIFIED MALE BREAST SNOMED Code(s): 377950734 Plan: Weakness, bradycardia -Patient is in the ICU be monitored -Cardiology has assessed the patient, medical mgmt Pancytopenia -Anemia, chronic, multifactorial. Present since at least 2013. Patient has chronic kidney disease, currently on dialysis. Status post 2 units PRBCs with appropriate increase in hemoglobin. Transfuse for hemoglobin less than 7. Iron studies ran on post transfusion blood. Would expect ferritin to be higher in CKD. No iron right now. Recheck iron studies after acute condition resolved. -HELENA started by Nephrology. Erythropoetin levels ordered. -Thrombocytopenia intermittently low over the last year. Current admit worst it has been. Platelets 86,000 today. No acute intervention. Patient's platelet counts are currently adequate for DVT prophylaxis. -WBC 4 today, ANC 3.4. No G-CSF necessary. Likely count fell below normal because of stress on the bone marrow from acute condition, history of chemotherapy for breast cancer. -Continue to monitor CBC while inpatient Male breast cancer history -ER/KS/HER-2 positive breast cancer -Status post treatment and mastectomy July 2022 -Patient is current on his follow-up -[facility] chart med list, last updated at pt visit in December. Pt on exemestane 25mg PO QD. Hold right now. -He has restaging PET scan 06/09 schedules and f/u with Dr. Catie Cameron early Jun- appts documented in discharge plan -MRI of the brain has been ordered for unusual patient behavior, rule out metastatic disease to the brain. Pending. Left lower extremity swelling -Worse than the right lower extremity -Doppler neg for DVT -DVT prophylaxis started Doctor attests: I performed a history and physical examination of this patient, developed impression and plan of care. Discussed with dictator. I agree with dictators note, documented as a scribe.
[2023-05-14 11:06] LABS: Glucose,Whole Blood 107 mg/dL (70-110)
[2023-05-14] MEDS: DIALYSIS (PERIT 2.5%) 2,000 ML 50 G/2,000 ML BAG INTRAPERIT SCH (12:06)
--- NOTE | 2023-05-14 12:16 | P.PN ---
Subjective Progress Note Date: 05/13/23 HISTORY OF PRESENT ILLNESS: this is a 72-year-old male with a previous medical history significant for hypertension and hypertensive cardiovascular disease with left ventricular hypertrophy, hyperlipidemia, diabetes mellitus type 2, with diabetic polyneuropathy, history of coronary artery disease status post coronary artery bypass graft x3 followed by stent, history of atrial fibrillation status post ablation on long-term eliquis, history of meningioma status post resection back in April 2013 with left-sided weakness, end-stage renal disease on peritoneal dialysis, history of anemia of chronic kidney disease, history of secondary hyperparathyroidism,history of breast cancer on the right side status post right mastectomy followed by chemotherapy, history of aortic valve stenosis, patient was getting weaker over the last few days prior to his admission, patient has not been eating or drinking very much, could not do his dialysis on Thursday on Thursday morning he was supposed to 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 Cameron, however the patient was unresponsive, so the ended up calling 911, bringing the patient to the emergency department at [facility], patient was bradycardic in the low 40s, he was found to have a significant anemia with a hemoglobin of 5.9, he was also pancytopenic with a white count of 1.7 platelet count of 79,000, patient was admitted to the hospit al for evaluation had a go a guaiac stool negative, he was admitted to intensive care unit he was started on a dopamine drip, he was seen in consultation by cardiology who recommended to continue dopamine drip for now, monitor the patient for possible permanent pacemaker placement. Patient was admitted to the ICU, he was seen in consultation by pulmonary and critical care medicine, patient overall prognosis very guarded, this was discussed with his . 05/12: Patient remains in the intensive care unit. He continues on IV dopamine. The patient is followed closely by cardiology and pulmonary medicine. Oncology has evaluated the patient today for pancytopenia. Patient is status post 2 u nits of packed RBCs. Oncology ordered an MRI of the brain. Patient is followed by nephrology and continued on CAPD. Echocardiogram has been completed and report is pending. MRI of the brain and ultrasound of the lower extremities left-sided pending. Blood pressure 105/43, heart rate in the 50s, afebrile, pulse ox 99% on room air. Repeat blood work reveals WBC 3.7, hemoglobin 7.2, platelet count 77. Sodium 129, potassium 4.9, chloride 94, CO2 25, BUN 64 and creatinine 5.39. Blood sugar 64. *Around noon today, patient had an episode of unresponsiveness and vomiting for 2 minutes. He maintained a pulse and a blood pressure. Heart rate was 32, telemetry was a junctional bradycardia. He was given 1 amp of bicarb. Past with his . Also recommended that his children come into the hospital to see him as soon as possible. REVIEW OF SYSTEMS: Constitutional: No documented fever, no chills, no night sweats. No weight change. positive for weakness, fatigue or lethargy. daytime sleepiness. HEENT: No headache. right eye blind or double vision, no loss of vision. No loss of Hearing, no ringing in the ears, no dizziness. No nasal drainage or congestion. No epistaxis. No sore throat. Lungs: positive for shortness of breath, no cough, no sputum production. No wheezing. Reports dyspnea with activity. Cardiovascular: No chest pain, reported lower extremity edema. No palpitations. Reported paroxysmal nocturnal dyspnea. Reports orthopnea. No lightheadedness or dizziness. No syncopal episodes. Abdominal: Reports no abdominal pain. positive for nausea, no vomiting. Reports occasional diarrhea. No constipation. No bloody or tarry stools reports loss of appetite. Genitourinary: No dysuria, increased frequency, urgency. No urinary retention. Musculoskeletal: No myalgias. positive for chronic left sided weakness, positive for gait dysfunction, no frequent falls. positive for back pain. positive for neck pain. Integumentary: right mastectomy incision is clean with LUISITO in place no lesions. No rash or pruritus. No unusual bruising. No change in hair or nails. Neurologic: No aphasia. No facial droop. No change in mentation. No head injury. No headache, positive for left sided weakness and left foot drop. Psychiatric: positive for depression. No anxiety. No mood swings. Endocrine: No abnormal blood sugars. No weight change. PHYSICAL EXAMINATION: General: this is a 72-year-old male who is lying down in bed in bed appears to be lethargic. HEENT: Head is atraumatic, normocephalic, pupils were equal round reactive to light and recommendation, extraocular muscle movement were intact, sclera nonicteric, conjunctivae were pale, mucous membranes of the mouth are somewhat dry. Neck: Supple, no JVP, normal carotid upstroke bilaterally, no lymphadenopathy. Chest: Decreased breath sounds at the bases few rhonchi, no expiratory wheezes, no chest wall tenderness, no intercostal retractions. Heart: First heart sound is normal, second heart sounds normal, irregularly irregular, there is systolic ejection murmur 2/6 located in the left sternal border. Abdomen: Soft, nontender, nondistended, positive bowel sounds, positive for PD catheter Extremities: There is +2 edema to the bilateral lower extremities left greater than right no calf tenderness DP +2 bilaterally. Neurologic examination: Patient is awake alert and oriented X1 , cranial nerves II-12 appear grossly intact, there is left-sided weakness with left foot drop. ASSESSMENT AND PLAN: 1. Bradycardia in the form of junctional rhythm in a patient with a prior history of atrial fibrillation. Patient was continued on dopamine drip, he was seen in consultation by cardiology was recommended for possible permanent pacemaker the patient does not recover. 2. Metabolic encephalopathy likely related to bradycardia poor oral intake of fluid and the hyperkalemia. Patient will be maintained on peritoneal dialysis, continue treatment as in Paragraph#1 3. Right-sided pleural effusion with compressive atelectasis . Stable. 4. Pancytopenia with severe anemia and thrombocytopenia and leukopenia as well. Likely related to myelodysplastic syndrome. Consult hematology oncology. 6. History of CAD post CABG as well as PCI and stent placement. Continue patient on pravastatin 40 mg at bedtime. 7. History of paroxysmal atrial fibrillation. Hold off Eliquis 8. Hypertension and hypertensive cardiovascular disease. monitor the patient blood pressure very closely. 9. Hyperlipidemia. Continue patient on pravastatin 40 mg at bedtime, monitor lipid panel, keep LDL 55-70. 10. ESRD. we will continue with PD. 11. History of enlarged prostate. Continue Flomax 0.4 mg once every day, monitor for urinary retention. 12. Diabetes mellitus type 2. Continue Lantus 24 units at bedtime, monitor the patient blood glucose level and at bedtime with NovoLog scale 13. Diabetic polyneuropathy. Stable. 14. History of DVT status post IVC filter placement, off Eliquis 15. Chronic gout. Continue patient on allopurinol 100 mg orally once every day. 16. History of meningioma with left-sided weakness. Physical therapy evaluation. Admit to inpatient. Estimate a length of stay 2 midnights. Patient is DNR . Impression and plan of care have been directed as dictated by the signing physician. Nita Linn nurse practitioner acting as scribe for signing physician. Objective - Vital Signs Vital signs: Vital Signs Temp 97.7 F 05/13/23 08:00 Pulse 53 L 05/13/23 11:15 Resp 18 05/13/23 11:15 BP 105/43 05/13/23 11:15 Pulse Ox 99 05/13/23 11:15 FiO2 Intake & Output 05/12/23 05/13/23 05/13/23 18:59 06:59 18:59 Intake Total 58 1179 218.022 Output Total 0 0 Balance 58 1179 218.022 Weight 97.522 kg 96.8 kg 96.8 kg Intake: IV 319 149 DOPamine DRIP 800 mg In 99 9 Dextrose/Water 1 250ml. bag @ 2.5 MCG/KG/MIN 4. 571 mls/hr IV .Q24H [facility] Rx#:[id number] Sodium Chloride 0.9% 1, 220 140 000 ml @ 20 mls/hr IV . Q24H [facility] Rx#:[id number] Intake, IV Titration 58 29 69.022 Amount DOPamine DRIP 800 mg In 18 9 69.022 Dextrose/Water 1 250ml. bag @ 2.5 MCG/KG/MIN 4. 571 mls/hr IV .Q24H [facility] Rx#:[id number] Sodium Chloride 0.9% 1, 40 20 000 ml @ 20 mls/hr IV . Q24H [facility] Rx#:[id number] Blood Product 0 781 Rc Pheresis As-3 Unit 281 [id number] Rc Pheresis As-3 Unit 0 282 [id number] Other 50 Rc Pheresis As-3 Unit 50 [id number] Output: Urine 0 0 Other: Voiding Method Urinal Urinal - Labs CBC & Chem 7: 05/14/23 04:24 05/14/23 04:24 Labs: Abnormal Lab Results - Last 24 Hours (Table) 05/12/23 05/12/23 05/12/23 Range/Units 12:27 12:27 12:27 WBC (3.8-10.6) k/uL RBC (4.30-5.90) m/uL Hgb (13.0-17.5) gm/dL Hct (39.0-53.0) % RDW (11.5-15.5) % Plt Count (150-450) k/uL Neutrophils # (1.3-7.7) k/uL Lymphocytes # (1.0-4.8) k/uL Retic Count (0.5-2.0) % Sodium 127 L (137-145) mmol/L Potassium (3.5-5.1) mmol/L Chloride 91 L (98-107) mmol/L BUN 60 H (9-20) mg/dL Creatinine 5.58 H (0.66-1.25) mg/dL Glucose 147 H (74-99) mg/dL POC Glucose (mg/dL) (70-110) mg/dL Phosphorus 6.7 H (2.5-4.5) mg/dL ALT 61 H (4-49) U/L Total Protein 4.7 L (6.3-8.2) g/dL Albumin 2.7 L (3.5-5.0) g/dL TSH 6.720 H (0.465-4.680) mIU/L Crossmatch 05/12/23 05/12/23 05/12/23 Range/Units 12:37 16:25 17:12 WBC 1.2 L* (3.8-10.6) k/uL RBC 2.03 L (4.30-5.90) m/uL Hgb 5.6 L* (13.0-17.5) gm/dL Hct 17.8 L* (39.0-53.0) % RDW 20.0 H (11.5-15.5) % Plt Count 62 L D (150-450) k/uL Neutrophils # 0.9 L (1.3-7.7) k/uL Lymphocytes # 0.1 L (1.0-4.8) k/uL Retic Count (0.5-2.0) % Sodium (137-145) mmol/L Potassium (3.5-5.1) mmol/L Chloride (98-107) mmol/L BUN (9-20) mg/dL Creatinine (0.66-1.25) mg/dL Glucose (74-99) mg/dL POC Glucose (mg/dL) 227 H (70-110) mg/dL Phosphorus (2.5-4.5) mg/dL ALT (4-49) U/L Total Protein (6.3-8.2) g/dL Albumin (3.5-5.0) g/dL TSH (0.465-4.680) mIU/L Crossmatch See Detail 05/12/23 05/13/23 05/13/23 Range/Units 21:03 04:04 04:04 WBC (3.8-10.6) k/uL RBC 2.76 L (4.30-5.90) m/uL Hgb 7.6 L D (13.0-17.5) gm/dL Hct 23.5 L (39.0-53.0) % RDW 19.9 H (11.5-15.5) % Plt Count 78 L (150-450) k/uL Neutrophils # (1.3-7.7) k/uL Lymphocytes # 0.2 L (1.0-4.8) k/uL Retic Count (0.5-2.0) % Sodium 125 L (137-145) mmol/L Potassium 5.7 H (3.5-5.1) mmol/L Chloride 91 L (98-107) mmol/L BUN 65 H (9-20) mg/dL Creatinine 5.03 H (0.66-1.25) mg/dL Glucose 154 H (74-99) mg/dL POC Glucose (mg/dL) 243 H (70-110) mg/dL Phosphorus 6.8 H (2.5-4.5) mg/dL ALT 68 H (4-49) U/L Total Protein 5.1 L (6.3-8.2) g/dL Albumin 2.8 L (3.5-5.0) g/dL TSH (0.465-4.680) mIU/L Crossmatch 05/13/23 05/13/23 Range/Units 09:34 09:34 WBC (3.8-10.6) k/uL RBC 2.63 L (4.30-5.90) m/uL Hgb 7.3 L (13.0-17.5) gm/dL Hct 22.6 L (39.0-53.0) % RDW 20.5 H (11.5-15.5) % Plt Count 81 L (150-450) k/uL Neutrophils # (1.3-7.7) k/uL Lymphocytes # (1.0-4.8) k/uL Retic Count 3.5 H (0.5-2.0) % Sodium (137-145) mmol/L Potassium 5.5 H (3.5-5.1) mmol/L Chloride (98-107) mmol/L BUN (9-20) mg/dL Creatinine (0.66-1.25) mg/dL Glucose (74-99) mg/dL POC Glucose (mg/dL) (70-110) mg/dL Phosphorus (2.5-4.5) mg/dL ALT (4-49) U/L Total Protein (6.3-8.2) g/dL Albumin (3.5-5.0) g/dL TSH (0.465-4.680) mIU/L Crossmatch
--- NOTE | 2023-05-14 12:42 | P.PN ---
Subjective Progress Note Date: 05/14/23 HISTORY OF PRESENT ILLNESS: this is a 72-year-old male with a previous medical history significant for hypertension and hypertensive cardiovascular disease with left ventricular hypertrophy, hyperlipidemia, diabetes mellitus type 2, with diabetic polyneuropathy, history of coronary artery disease status post coronary artery bypass graft x3 followed by stent, history of atrial fibrillation status post ablation on long-term eliquis, history of meningioma status post resection back in April 2013 with left-sided weakness, end-stage renal disease on peritoneal dialysis, history of anemia of chronic kidney disease, history of secondary hyperparathyroidism,history of breast cancer on the right side status post right mastectomy followed by chemotherapy, history of aortic valve stenosis, patient was getting weaker over the last few days prior to his admission, patient has not been eating or drinking very much, could not do his dialysis on Thursday on Thursday morning he was supposed to go see his chemist intern oncologist Dr. Cameron, however the patient was unresponsive, so the ended up calling 911, bringing the patient to the emergency department at [facility], patient was bradycardic in the low 40s, he was found to have a significant anemia with a hemoglobin of 5.9, he was also pancytopenic with a white count of 1.7 platelet count of 79,000, patient was admitted to the hospit al for evaluation had a go a guaiac stool negative, he was admitted to intensive care unit he was started on a dopamine drip, he was seen in consultation by cardiology who recommended to continue dopamine drip for now, monitor the patient for possible permanent pacemaker placement. Patient was admitted to the ICU, he was seen in consultation by pulmonary and critical care medicine, patient overall prognosis very guarded, this was discussed with his . 05/12: Patient remains in the intensive care unit. He continues on IV dopamine. The patient is followed closely by cardiology and pulmonary medicine. Oncology has evaluated the patient today for pancytopenia. Patient is status post 2 u nits of packed RBCs. Oncology ordered an MRI of the brain. Patient is followed by nephrology and continued on CAPD. Echocardiogram has been completed and report is pending. MRI of the brain and ultrasound of the lower extremities left-sided pending. Blood pressure 105/43, heart rate in the 50s, afebrile, pulse ox 99% on room air. Repeat blood work reveals WBC 3.7, hemoglobin 7.2, platelet count 77. Sodium 129, potassium 4.9, chloride 94, CO2 25, BUN 64 and creatinine 5.39. Blood sugar 64. *Around noon today, patient had an episode of unresponsiveness and vomiting for 2 minutes. He maintained a pulse and a blood pressure. Heart rate was 32, telemetry was a junctional bradycardia. He was given 1 amp of bicarb. Past with his . Also recommended that his children come into the hospital to see him as soon as possible. 05/13: Patient has been made no CODE STATUS. He remains in the intensive care unit. Patient continues to have mental status changes not improving in oncology as ordered. MRI of the brain. Nephrology continues CAPD. Cardiology is weaning IV dopamine off. Heart rate is running in the 70s, blood pressure 108/42. Pulse ox 94% on 2 L nasal cannula. A repeat blood work reveals WBC 4, hemoglobin 7.2, platelet count 86. Sodium 127, potassium 5.3, BUN 67, creatinine 5.1. Patient's continues to state that she does not want any aggressive workup. Venous ultrasound for the left lower extremity negative for DVT. Left lower extremity is chronically larger than the right. Echocardiogram reveals normal LV systolic function. Mild pulmonary hypertens ion. Mild mitral stenosis. Moderate to severe aortic stenosis. REVIEW OF SYSTEMS: Constitutional: No documented fever, no chills, no night sweats. No weight change. positive for weakness, fatigue or lethargy. daytime sleepiness. HEENT: No headache. right eye blind or double vision, no loss of vision. No loss of Hearing, no ringing in the ears, no dizziness. No nasal drainage or congestion. No epistaxis. No sore throat. Lungs: positive for shortness of breath, no cough, no sputum production. No wheezing. Reports dyspnea with activity. Cardiovascular: No chest pain, reported lower extremity edema. No palpitations. Reported paroxysmal nocturnal dyspnea. Reports orthopnea. No lightheadedness or dizziness. No syncopal episodes. Abdominal: Reports no abdominal pain. positive for nausea, no vomiting. Reports occasional diarrhea. No constipation. No bloody or tarry stools reports loss of appetite. Genitourinary: No dysuria, increased frequency, urgency. No urinary retention. Musculoskeletal: No myalgias. positive for chronic left sided weakness, positive for gait dysfunction, no frequent falls. positive for back pain. positive for neck pain. Integumentary: right mastectomy incision is clean with LUISITO in place no lesions. No rash or pruritus. No unusual bruising. No change in hair or nails. Neurologic: No aphasia. No facial droop. No change in mentation. No head injury. No headache, positive for left sided weakness and left foot drop. Psychiatric: positive for depression. No anxiety. No mood swings. Endocrine: No abnormal blood sugars. No weight change. PHYSICAL EXAMINATION: General: this is a 72-year-old male who is lying down in bed in bed appears to be lethargic. HEENT: Head is atraumatic, normocephalic, pupils were equal round reactive to light and recommendation, extraocular muscle movement were intact, sclera nonicteric, conjunctivae were pale, mucous membranes of the mouth are somewhat dry. Neck: Supple, no JVP, normal carotid upstroke bilaterally, no lymphadenopathy. Chest: Decreased breath sounds at the bases few rhonchi, no expiratory wheezes, no chest wall tenderness, no intercostal retractions. Heart: First heart sound is normal, second heart sounds normal, irregularly irregular, there is systolic ejection murmur 2/6 located in the left sternal border. Abdomen: Soft, nontender, nondistended, positive bowel sounds, positive for PD catheter Extremities: There is +2 edema to the bilateral lower extremities left greater than right no calf tenderness DP +2 bilaterally. Neurologic examination: Patient is awake alert and oriented X1 , cranial nerves II-12 appear grossly intact, there is left-sided weakness with left foot drop. ASSESSMENT AND PLAN: 1. Bradycardia in the form of junctional rhythm in a patient with a prior history of atrial fibrillation. Patient weaned off dopamine drip, heart rate appears to be stable. 2. Metabolic encephalopathy likely related to bradycardia poor oral intake of fluid and the hyperkalemia. Patient will be maintained on peritoneal dialysis, continue treatment as in Paragraph#1 3. Right-sided pleural effusion with compressive atelectasis . Stable. 4. Pancytopenia with severe anemia and thrombocytopenia and leukopenia as well. Likely related to myelodysplastic syndrome. Consult hematology oncology. 6. History of CAD post CABG as well as PCI and stent placement. Continue patient on pravastatin 40 mg at bedtime. 7. History of paroxysmal atrial fibrillation. Hold off Eliquis 8. Hypertension and hypertensive cardiovascular disease. monitor the patient blood pressure very closely. 9. Hyperlipidemia. Continue patient on pravastatin 40 mg at bedtime, monitor lipid panel, keep LDL 55-70. 10. ESRD. we will continue with PD. 11. History of enlarged prostate. Continue Flomax 0.4 mg once every day, monitor for urinary retention. 12. Diabetes mellitus type 2. Continue Lantus 24 units at bedtime, monitor the patient blood glucose level and at bedtime with NovoLog scale 13. Diabetic polyneuropathy. Stable. 14. History of DVT status post IVC filter placement, off Eliquis 15. Chronic gout. Continue patient on allopurinol 100 mg orally once every day. 16. History of meningioma with left-sided weakness. Physical therapy evaluatio n. Patient is DNR . Impression and plan of care have been directed as dictated by the signing phys ician. Nita Linn nurse practitioner acting as scribe for signing physician. Objective - Vital Signs Vital signs: Vital Signs Temp 97.7 F 05/14/23 07:32 Pulse 75 05/14/23 11:30 Resp 21 05/14/23 11:30 BP 108/42 05/14/23 11:30 Pulse Ox 94 L 05/14/23 11:30 FiO2 40 05/14/23 00:15 Intake & Output 05/13/23 05/14/23 05/14/23 18:59 06:59 18:59 Intake Total 395.067 401.645 199.798 Output Total 275 0 0 Balance 120.067 401.645 199.798 Weight 96.8 kg 101.6 kg Intake: IV 249 240 150 DOPamine DRIP 800 mg In 9 Dextrose/Water 1 250ml. bag @ 2.5 MCG/KG/MIN 4. 571 mls/hr IV .Q24H [facility] Rx#:[id number] Sodium Chloride 0.9% 1, 240 240 100 000 ml @ 20 mls/hr IV . Q24H [facility] Rx#:[id number] cefTRIAXone 1 gm In 50 Sodium Chloride 0.9% 50 ml @ 100 mls/hr IVPB Q24HR [facility] Rx#:[id number] Intake, IV Titration 146.067 161.645 49.798 Amount DOPamine DRIP 800 mg In 146.067 Dextrose/Water 1 250ml. bag @ 2.5 MCG/KG/MIN 4. 571 mls/hr IV .Q24H [facility] Rx#:[id number] DOPamine DRIP 800 mg In 62.315 14.762 Dextrose/Water 1 250ml. bag @ 5 MCG/KG/MIN 9.075 mls/hr IV .Q24H [facility] Rx#: [id number] Norepinephrine 4 mg In 99.330 35.036 Sodium Chloride 0.9% 250 ml @ 0.03 MCG/KG/MIN 11. 064 mls/hr IV .[id number] [facility] Rx#:[id number] Output: Urine 275 0 0 Other: Voiding Method Urinal Urinal Urinal # Voids 1 - Labs CBC & Chem 7: 05/14/23 04:24 05/14/23 04:24 Labs: Abnormal Lab Results - Last 24 Hours (Table) 05/13/23 05/13/23 05/13/23 Range/Units 09:34 12:22 12:22 WBC 3.7 L (3.8-10.6) k/uL RBC 2.59 L (4.30-5.90) m/uL Hgb 7.2 L (13.0-17.5) gm/dL Hct 22.1 L (39.0-53.0) % RDW 20.3 H (11.5-15.5) % Plt Count 77 L (150-450) k/uL Lymphocytes # (1.0-4.8) k/uL Sodium 129 L (137-145) mmol/L Potassium (3.5-5.1) mmol/L Chloride 94 L (98-107) mmol/L BUN 64 H (9-20) mg/dL Creatinine 5.39 H (0.66-1.25) mg/dL Glucose 64 L (74-99) mg/dL POC Glucose (mg/dL) (70-110) mg/dL Phosphorus (2.5-4.5) mg/dL Iron 334 H (65-175) UG/DL % Saturation 85.42 H (15.00-50.00) 05/13/23 05/13/23 05/14/23 Range/Units 18:03 20:20 04:24 WBC (3.8-10.6) k/uL RBC 2.78 L 2.62 L (4.30-5.90) m/uL Hgb 7.7 L 7.2 L (13.0-17.5) gm/dL Hct 23.6 L 22.6 L (39.0-53.0) % RDW 20.3 H 20.7 H (11.5-15.5) % Plt Count 81 L 86 L (150-450) k/uL Lymphocytes # 0.2 L (1.0-4.8) k/uL Sodium (137-145) mmol/L Potassium (3.5-5.1) mmol/L Chloride (98-107) mmol/L BUN (9-20) mg/dL Creatinine (0.66-1.25) mg/dL Glucose (74-99) mg/dL POC Glucose (mg/dL) 117 H (70-110) mg/dL Phosphorus (2.5-4.5) mg/dL Iron (65-175) UG/DL % Saturation (15.00-50.00) 05/14/23 05/14/23 Range/Units 04:24 06:36 WBC (3.8-10.6) k/uL RBC (4.30-5.90) m/uL Hgb (13.0-17.5) gm/dL Hct (39.0-53.0) % RDW (11.5-15.5) % Plt Count (150-450) k/uL Lymphocytes # (1.0-4.8) k/uL Sodium 127 L (137-145) mmol/L Potassium 5.3 H (3.5-5.1) mmol/L Chloride 93 L (98-107) mmol/L BUN 67 H (9-20) mg/dL Creatinine 5.13 H (0.66-1.25) mg/dL Glucose 103 H (74-99) mg/dL POC Glucose (mg/dL) 112 H (70-110) mg/dL Phosphorus 6.1 H (2.5-4.5) mg/dL Iron (65-175) UG/DL % Saturation (15.00-50.00)
[2023-05-14 13:02] LABS: Anisocytosis Moderate; Hypochromasia Marked; MCH 28.8 pg (25.0-35.0); MCHC 33.2 g/dL (31.0-37.0); MCV 86.7 fL (80.0-100.0); Poikilocytosis Moderate; RBC 2.19 m/uL (4.30-5.90); RDW 20.9 % (11.5-15.5); WBC 3.1 k/uL (3.8-10.6)
[2023-05-14 13:09] LABS: HGB 6.3 gm/dL (13.0-17.5)
[2023-05-14 13:10] LABS: African American GFR (CKD) 11 (>60 ml/min/1.73 sqM); Anion Gap 8 mmol/L; Blood Urea Nitrogen 67 mg/dL (9-20); Calcium 8.5 mg/dL (8.4-10.2); Carbon Dioxide 25 mmol/L (22-30); Chloride 95 mmol/L (98-107); Glucose 82 mg/dL (74-99); Non-African American GFR(CKD) 10 (>60 ml/min/1.73 sqM); Potassium 4.8 mmol/L (3.5-5.1); Sodium 128 mmol/L (137-145)
[2023-05-14 13:12] LABS: Platelet Count 64 k/uL (150-450)
--- NOTE | 2023-05-14 13:33 | P.PN ---
Subjective Progress Note Date: 05/14/23 Principal diagnosis: Symptomatic bradycardia with hypotension, pancytopenia and possible sepsis. I am seeing this patient in new consultation today 05/13/2023 in the intensive care unit for multiple medical issues. Patient is a 72-year-old white male with past medical history significant for atrial fibrillation anticoagulated on Eliquis, coronary artery disease with previous CABG and stenting, diabetes mellitus type 2, hyperlipidemia, hypertension, DVT, obstructive sleep apnea, end-stage renal disease with peritoneal dialysis, meningioma resection resulting in chronic left leg weakness, Arguelles's palsy with residual right-sided weakness, blind in his right eye, breast cancer status post chemotherapy and right-sided mastectomy July 2022. He had a recent hospital admission for suspected encephalitis Jan, 2023. Patient presented to the emergency room yesterday afternoon after his his noticed that he was not "acting right". He had slurred speech, generalized weakness, fatigue, lethargy. He's been progressively more weak over the last couple days. Denies any fevers, chills, myalgias, shortness of breath, cough, chest pain, abdominal pain, nausea or vomiting. Patient is technically a poor historian, and HPI is supplemented by his . On arrival to the emergency room, the patient was found to be bradycardic, with a heart rate of around 30-40 bpm. He was subsequently started on dopamine which is currently infusing at 2.5 mcg/kg/m. Heart rhythm is cu rrently junctional bradycardia at a rate of 54 bpm. Blood pressure is normotensive. He is currently sitting up in bed, on 2 L/m nasal cannula, in no acute distress. SpO2 is 98%. He is hypothermic, and has the warming blanket on him. He is also severely pancytopenic on arrival. No reported acute blood loss mentioned. CBC shows WBC count of 1.2, hemoglobin 5.6, hematocrit 17.8, and platelets 62,000. Patient is finishing his second unit of PRBC transfusion. BMP on arrival shows sodium 127, potassium 5, chloride 91, serum bicarbonate 23, BUN 60, creatinine 5.58, glucose 147. Troponin less than 0.012. TSH 6.7 and free T4 1. Normal saline is infusing at 20 ML's per hour. Patient's peritoneal dialysis has been restarted. Patient is currently sitting up in bed, on 2 L/m nasal cannula, in no acute distress. Chest x-ray shows pulmonary vascular congestion with a chronic moderate sized right-sided pleural effusion. No obvious acute infiltrates or evidence of pneumonia. No obvious infectious source identified. Patient's overall prognosis is guarded related to above- mentioned comorbidities. Patient will be monitored in the intensive care unit. Patient was reevaluated today on 05/14/2023, remains quite lethargic and encephalopathic, patient is confused, is at bedside, patient is requiring norepinephrine at 0.03 mcg/kg/m he is also requiring O2 at 2 L nasal cannula. Patient is now off dopamine but he is on norepinephrine. Remains on Rocephin empirically, cultures are pending, he had negative Doppler for DVT. CODE STATUS has been established by the admitting physician and as DO NOT RESUSCITATE CODE STATUS. Patient is being followed by many consultants including hematology/oncology, nephrology, and cardiology. Patient did not have any significant ultrafiltration with the last 2 exchanges, serum potassium is 5.3 hemoglobin is low may require a unit of packed RBCs. Today's hemoglobin is 6.3 done this afternoon hence I'm recommending a unit of packed RBCs to be given. Sodium remains at 128 basic metabolic profile otherwise is normal BUN is 67 creatinine 5.38. WBC count is 3.1. Chest x-ray on admission showed cardiomegaly and pulmonary vascular congestion with small to moderate right- sided pleural effusion consistent with fluid overload most likely related to his renal failure, not to mention the patient has severe aortic stenosis. Objective - Vital Signs Vital signs: Vital Signs Temp 97.7 F 05/14/23 07:32 Pulse 75 05/14/23 11:30 Resp 21 05/14/23 11:30 BP 108/42 05/14/23 11:30 Pulse Ox 94 L 05/14/23 11:30 FiO2 40 05/14/23 00:15 Intake & Output 05/13/23 05/14/23 05/14/23 18:59 06:59 18:59 Intake Total 395.067 401.645 199.798 Output Total 275 0 0 Balance 120.067 401.645 199.798 Weight 96.8 kg 101.6 kg Intake: IV 249 240 150 DOPamine DRIP 800 mg In 9 Dextrose/Water 1 250ml. bag @ 2.5 MCG/KG/MIN 4. 571 mls/hr IV .Q24H [facility] Rx#:[id number] Sodium Chloride 0.9% 1, 240 240 100 000 ml @ 20 mls/hr IV . Q24H [facility] Rx#:[id number] cefTRIAXone 1 gm In 50 Sodium Chloride 0.9% 50 ml @ 100 mls/hr IVPB Q24HR [facility] Rx#:[id number] Intake, IV Titration 146.067 161.645 49.798 Amount DOPamine DRIP 800 mg In 146.067 Dextrose/Water 1 250ml. bag @ 2.5 MCG/KG/MIN 4. 571 mls/hr IV .Q24H [facility] Rx#:[id number] DOPamine DRIP 800 mg In 62.315 14.762 Dextrose/Water 1 250ml. bag @ 5 MCG/KG/MIN 9.075 mls/hr IV .Q24H [facility] Rx#: [id number] Norepinephrine 4 mg In 99.330 35.036 Sodium Chloride 0.9% 250 ml @ 0.03 MCG/KG/MIN 11. 064 mls/hr IV .[id number] [facility] Rx#:[id number] Output: Urine 275 0 0 Other: Voiding Method Urinal Urinal Urinal # Voids 1 - Exam General: 72-year-old white male extremely lethargic in no respiratory distress. HEENT: PERRLA, EOMI, nonicteric, presently no JVD. Neck: Supple no neck masses no lymphadenopathy Chest: Diminished breath sound bilaterally crackles at the bases no rhonchi and no wheezes Heart: Normal S1 and S2, 3/6 systolic murmur thought the precordium Abdomen: Obese soft nontender, peritoneal catheter is noted Extremities: 2+ bipedal edema with left lower extremity seems to be a bit more swollen than the right lower extremity Neurologic examination: Patient is awake alert and oriented X1 , cranial nerves II-12 appear grossly intact, there is left-sided weakness with left foot drop. Psychiatric: Depressed mood, flat affect, normal mental status except he is slow and lethargic - Labs CBC & Chem 7: 05/14/23 12:44 05/14/23 12:44 Labs: Abnormal Lab Results - Last 24 Hours (Table) 05/12/23 05/13/23 05/13/23 Range/Units 16:25 09:34 09:34 WBC (3.8-10.6) k/uL RBC (4.30-5.90) m/uL Hgb (13.0-17.5) gm/dL Hct (39.0-53.0) % RDW (11.5-15.5) % Plt Count (150-450) k/uL Lymphocytes # (1.0-4.8) k/uL Sodium (137-145) mmol/L Potassium (3.5-5.1) mmol/L Chloride (98-107) mmol/L BUN (9-20) mg/dL Creatinine (0.66-1.25) mg/dL Glucose (74-99) mg/dL POC Glucose (mg/dL) (70-110) mg/dL Phosphorus (2.5-4.5) mg/dL Iron 334 H (65-175) UG/DL % Saturation 85.42 H (15.00-50.00) Erythropoietin 335.86 H (2.00-30.00) mIU/mL Crossmatch See Detail 05/13/23 05/13/23 05/14/23 Range/Units 18:03 20:20 04:24 WBC (3.8-10.6) k/uL RBC 2.78 L 2.62 L (4.30-5.90) m/uL Hgb 7.7 L 7.2 L (13.0-17.5) gm/dL Hct 23.6 L 22.6 L (39.0-53.0) % RDW 20.3 H 20.7 H (11.5-15.5) % Plt Count 81 L 86 L (150-450) k/uL Lymphocytes # 0.2 L (1.0-4.8) k/uL Sodium (137-145) mmol/L Potassium (3.5-5.1) mmol/L Chloride (98-107) mmol/L BUN (9-20) mg/dL Creatinine (0.66-1.25) mg/dL Glucose (74-99) mg/dL POC Glucose (mg/dL) 117 H (70-110) mg/dL Phosphorus (2.5-4.5) mg/dL Iron (65-175) UG/DL % Saturation (15.00-50.00) Erythropoietin (2.00-30.00) mIU/mL Crossmatch 05/14/23 05/14/23 05/14/23 Range/Units 04:24 06:36 12:44 WBC (3.8-10.6) k/uL RBC (4.30-5.90) m/uL Hgb (13.0-17.5) gm/dL Hct (39.0-53.0) % RDW (11.5-15.5) % Plt Count (150-450) k/uL Lymphocytes # (1.0-4.8) k/uL Sodium 127 L 128 L (137-145) mmol/L Potassium 5.3 H (3.5-5.1) mmol/L Chloride 93 L 95 L (98-107) mmol/L BUN 67 H 67 H (9-20) mg/dL Creatinine 5.13 H 5.38 H (0.66-1.25) mg/dL Glucose 103 H (74-99) mg/dL POC Glucose (mg/dL) 112 H (70-110) mg/dL Phosphorus 6.1 H (2.5-4.5) mg/dL Iron (65-175) UG/DL % Saturation (15.00-50.00) Erythropoietin (2.00-30.00) mIU/mL Crossmatch 05/14/23 Range/Units 12:44 WBC 3.1 L (3.8-10.6) k/uL RBC 2.19 L (4.30-5.90) m/uL Hgb 6.3 L* (13.0-17.5) gm/dL Hct 19.0 L* (39.0-53.0) % RDW 20.9 H (11.5-15.5) % Plt Count 64 L (150-450) k/uL Lymphocytes # (1.0-4.8) k/uL Sodium (137-145) mmol/L Potassium (3.5-5.1) mmol/L Chloride (98-107) mmol/L BUN (9-20) mg/dL Creatinine (0.66-1.25) mg/dL Glucose (74-99) mg/dL POC Glucose (mg/dL) (70-110) mg/dL Phosphorus (2.5-4.5) mg/dL Iron (65-175) UG/DL % Saturation (15.00-50.00) Erythropoietin (2.00-30.00) mIU/mL Crossmatch Assessment and Plan Assessment: Impression: Symptomatic bradycardia with hypotension requiring initially dopamine presently on levo fed. Acute metabolic toxic encephalopathy with altered mental status Moderate right-sided pleural effusion Chronic renal failure, on peritoneal dialysis Pancytopenia with severe anemia thrombocytopenia and leukopenia related to myelodysplastic syndrome Coronary artery disease and previous CABG Severe aortic stenosis Benign essential hypertension Dyslipidemia Type 2 diabetes with diabetic nephropathy Benign prostatic hyperplasia Chronic gout History of DVT and previous IVC filter placement Diabetic polyneuropathy History of meningioma with left-sided weakness Recommendation: Continue to monitor in the ICU Continue present supportive care measures Agree with DO NOT RESUSCITATE CODE STATUS of the patient is doing very poorly, and not a great candidate for heroic intervention Transfuse for hemoglobin below 7 Continue to follow with the other consultants on the case. Continue norepinephrine for now and once the patient is off norepinephrine we can transfer to regular medical floor Discussed his condition with his at bedside, apparently she is quite aware of his multiple complex medical problems. Continue antibiotics empirically for now and discontinue once all cultures are back negative Continue peritoneal dialysis Resume some of his oral meds and continue insulin Patient is critically ill. Critical care time is over 30 minutes Time with Patient: Greater than 30
--- NOTE | 2023-05-14 15:49 | P.CNNES ---
History of Present Illness Consult date: 05/14/23 Requesting physician: Lily Garcia Reason for Consult: ?encephalitis History of Present Illness: This is a 72-year-old gentleman with multiple medical issues who presented to the emergency department because not "acting right". History is obtained from medical records. It seems the patient recent admission in January 2023 with suspected encephalitis. Recently he has not bee acting himself. He had slurred speech, generalized weakness, fatigue and lethargy and progressively more weak over the past couple days. Denies fever, chills, myalgia. Upon arrival to hospital he was bradycardic around 30-40's. Also is severely pancytopenic. Later, I spoke with the patient's and daughter who are at bedside and they stated he was doing well until for the past one week in which he was slow responding and had generalized weakness. He did not follow-up with neurologist. No fever, vomiting, no staring off episodes per . He was doing drastically better at home up until a week ago. Of note, in Jan, 2023 upon reviewing the notes, it seems his altered mental status was felt due to metabolic encephalopathy, presumed viral encephalitis and holding Keppra. EEG 2.5 hours did not reveal epileptiform discharges that was definitive but right parientl cannot be excluded. Keppra was held because of his confusion and felt it improved upon holding it. MRI could not be performed because of IVC filter. Please refer to our notes for further details. Some of the work-up during this hospital visit consisted of: Is hypothermic as low as 93.9F and currently 94.5F. Initial heart rate was in 30-40's but has improved hemoglobin is 7.6 and currently 6.3. Initial wbc is 3.8 and currently 3.1K. Platelets 64K. Sodium is 127 and now 128 TSH: 6.720 and Free T4: 1.01 Phosphorus: 6.7 CT head is reported as no acute intracranial hemorrhage or midline shift. 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 No significant change from prior. I personally reviewed it and I feel it is more right parietal/frontal post- surgical changes that is old. Review of Systems Review of system is limited but the pertinent positive and negative as per HPI. Past Medical History Past Medical History: Atrial Fibrillation, Atrial Flutter, Coronary Artery Disease (CAD), Cancer, Diabetes Mellitus, Deep Vein Thrombosis (DVT), Eye Disorder, GERD/Reflux, Hyperlipidemia, Hypertension, Myocardial Infarction (MD), Neurologic Disorder, Osteoarthritis (OA), Prostate Disorder, Renal Disease, Sleep Apnea/CPAP/BIPAP Additional Past Medical History / Comment(s): currently has Hemodialysis MWF-4 Hrs-has port left shoulder., rt breast CA-Spring 2021,Blind in right eye. Hx encephalopathy, meningioma with left sided weakness, cannot use left leg, wheelchair bound. PT CAN'T HAVE ANY VACCINES THAT ARE LIVE VIRUSES. PLEASE USE PAPER TAPE ONLY(PT HAS THIN SKIN). uses slide board at home to transfer pt to w/c, with 2 person assist pt can stand/pivot to chair,uses cpap, uses O2 @ 2l NC prn Last Myocardial Infarction Date:: 02-11-2005 History of Any Multi-Drug Resistant Organisms: None Reported Past Surgical History: Adenoidectomy, Breast Surgery, Cardiac Ablation, Cholecystectomy, Coronary Bypass/CABG, Heart Catheterization With Stent, Orthopedic Surgery, Tonsillectomy Additional Past Surgical History / Comment(s): Triple bypass, Meningioma Removed from Brain 04/2013, peg tube- removed 9 years ago, DESTINEY FILTER, BILATERAL CATARACTS- LENS IMPLANTS, COLONOSCOPY/POLYPECTOMY, RIGHT KNEE ARTHROSCOPY, 07/21/22 right breast mastectomy Past Anesthesia/Blood Transfusion Reactions: No Reported Reaction Date of Last Stent Placement:: 2004 Past Psychological History: Depression Smoking Status: Never smoker - Past Family History Father History Unknown: Yes Family Medical History: Congestive Heart Failure (CHF) Mother History Unknown: Yes Additional Family Medical History / Comment(s): at age 90 Medications and Allergies Home Medications Medication Instructions Recorded Confirmed Type Tamsulosin HCl [Flomax] 0.4 mg PO BID 06/19/15 05/12/23 History amLODIPine [Norvasc] 5 mg PO BID 07/09/16 05/12/23 History Pravastatin Sodium [Pravachol] 40 mg PO HS 03/21/21 05/12/23 History Lidocaine-Prilocaine Cream [Emla 1 applic TOPICAL DAILY PRN 06/03/22 05/12/23 History Cream 2.5%/2.5%] INSULIN ASPART (NovoLOG) [NovoLOG See Protocol SQ ACHS PRN 07/31/22 05/12/23 History (formulary)] Insulin Glargine,Hum.rec.anlog 35 units SQ HS 09/17/22 05/12/23 History [Lantus Solostar Pen] Torsemide [Demadex] 20 mg PO BID 09/17/22 05/12/23 History Apixaban [Eliquis] 5 mg PO DAILY 01/04/23 05/12/23 History Lactulose 10 gm PO DAILY PRN 01/04/23 05/12/23 History Ciclopirox Nail Lacquer 8% 1 applic TOPICAL DIRECTED 05/12/23 05/12/23 History Furosemide [Lasix] 40 mg PO BID 05/12/23 05/12/23 History Pramipexole [Mirapex] 0.25 mg PO HS PRN 05/12/23 05/12/23 History Allergies Allergy/AdvReac Type Severity Reaction Status Date / Time Penicillins Allergy Unknown Rash/Hives Verified 05/12/23 15:22 adhesive AdvReac skin Verified 05/12/23 15:22 tears-paper tape is better but still will tear Physical Examination - Vital Signs Vital Signs: Vital Signs Temp Pulse Pulse Resp BP Pulse Ox FiO2 05/14/23 13:45 73 15 102/42 96 05/14/23 13:30 73 19 106/40 94 L 05/14/23 13:15 73 15 101/43 95 05/14/23 13:00 96 F L 72 15 102/44 96 05/14/23 12:45 96 F L 73 15 100/42 95 05/14/23 12:30 73 17 105/41 96 05/14/23 12:15 73 18 100/40 95 05/14/23 12:00 71 16 101/43 93 L 05/14/23 11:45 73 19 99/43 93 L 05/14/23 11:30 75 21 108/42 94 L 05/14/23 11:15 78 10 L 110/46 92 L 05/14/23 11:00 77 9 L 115/48 99 05/14/23 10:45 73 11 L 109/49 100 05/14/23 10:30 75 14 105/44 100 05/14/23 10:15 74 22 107/46 99 05/14/23 10:00 75 17 107/47 99 05/14/23 09:45 76 14 121/52 99 05/14/23 09:30 77 16 114/49 100 05/14/23 09:15 77 16 114/48 98 05/14/23 09:00 76 14 109/57 99 05/14/23 08:45 76 23 116/49 99 05/14/23 08:30 77 24 114/47 99 05/14/23 08:15 78 16 112/38 99 05/14/23 08:00 78 15 117/53 100 05/14/23 07:45 81 16 114/50 100 05/14/23 07:32 97.7 F 80 16 115/47 99 05/14/23 07:30 80 16 115/47 99 05/14/23 07:15 80 15 112/39 99 05/14/23 07:00 79 16 110/43 99 05/14/23 06:45 81 14 97/44 98 05/14/23 06:30 81 16 113/55 99 05/14/23 06:15 86 21 119/44 99 05/14/23 06:00 87 16 108/51 98 05/14/23 05:45 82 19 113/50 92 L 05/14/23 05:30 85 21 114/47 98 05/14/23 05:15 85 15 118/49 99 05/14/23 05:00 84 10 L 118/44 99 05/14/23 04:45 86 19 113/45 99 05/14/23 04:30 83 10 L 111/42 99 05/14/23 04:15 84 26 H 98/52 99 05/14/23 04:00 97.9 F 84 19 110/45 100 05/14/23 03:45 84 21 114/42 98 05/14/23 03:30 85 18 110/47 97 05/14/23 03:15 84 12 112/46 98 05/14/23 03:00 84 17 113/40 99 05/14/23 02:45 82 19 114/46 99 05/14/23 02:30 82 15 110/46 99 05/14/23 02:15 81 16 115/46 99 05/14/23 02:00 79 11 L 112/42 99 05/14/23 01:45 80 16 108/38 99 05/14/23 01:30 80 17 104/42 99 05/14/23 01:15 78 14 103/38 99 05/14/23 01:00 79 14 103/44 99 05/14/23 00:45 80 15 103/41 99 05/14/23 00:30 78 17 90/42 99 05/14/23 00:15 89.2 F L 75 20 91/40 99 40 05/14/23 00:00 79 14 93/37 99 05/13/23 23:45 80 12 89/41 99 05/13/23 23:30 79 10 L 93/41 99 05/13/23 23:15 79 11 L 93/46 99 05/13/23 23:00 80 19 92/41 99 05/13/23 22:45 82 26 H 91/40 99 05/13/23 22:30 81 15 92/43 99 05/13/23 22:18 82 18 92/43 99 05/13/23 22:15 81 19 98/41 99 05/13/23 22:00 83 18 99/42 99 05/13/23 21:45 82 18 105/42 99 05/13/23 21:30 84 23 105/46 98 05/13/23 21:15 84 20 99/44 98 05/13/23 21:00 83 13 99/49 99 05/13/23 20:45 85 24 96/46 98 05/13/23 20:30 83 14 103/44 99 05/13/23 20:15 85 18 103/44 99 05/13/23 20:00 98.4 F 81 14 96/39 99 05/13/23 19:45 85 24 105/46 98 05/13/23 19:30 85 14 83/48 99 05/13/23 19:15 83 14 96/41 99 05/13/23 19:00 83 18 101/42 98 05/13/23 18:45 79 18 96/42 99 05/13/23 18:30 79 17 100/41 98 05/13/23 18:15 79 24 93/43 99 05/13/23 18:00 78 12 97/38 99 05/13/23 17:50 98.5 F 79 17 100/41 99 05/13/23 17:45 80 11 L 88/42 98 05/13/23 17:30 80 13 94/44 98 05/13/23 17:15 80 100/44 98 05/13/23 17:00 80 10 L 88/43 96 05/13/23 16:45 78 15 83/46 97 05/13/23 16:30 78 14 99/42 95 05/13/23 16:15 81 21 101/46 99 05/13/23 16:00 96.3 F L 81 15 95/50 99 05/13/23 15:45 81 14 96/41 99 05/13/23 15:41 54 L 05/13/23 15:30 82 22 94/46 87 L 05/13/23 15:15 80 18 105/45 99 05/13/23 15:00 81 11 L 95/46 99 05/13/23 14:45 81 12 109/42 99 05/13/23 14:30 80 15 102/45 99 Intake and Output 05/13/23 05/14/23 05/14/23 22:59 06:59 14:59 Intake Total 196.357 301.075 239.798 Output Total 0 0 0 Balance 196.357 301.075 239.798 Intake: IV 160 160 190 Sodium Chloride 0.9% 1, 160 160 140 000 ml @ 20 mls/hr IV . Q24H [facility] Rx#:[id number] cefTRIAXone 1 gm In 50 Sodium Chloride 0.9% 50 ml @ 100 mls/hr IVPB Q24HR [facility] Rx#:[id number] Intake, IV Titration 36.357 141.075 49.798 Amount DOPamine DRIP 800 mg In 15.787 Dextrose/Water 1 250ml. bag @ 2.5 MCG/KG/MIN 4. 571 mls/hr IV .Q24H [facility] Rx#:[id number] DOPamine DRIP 800 mg In 20.570 41.745 14.762 Dextrose/Water 1 250ml. bag @ 5 MCG/KG/MIN 9.075 mls/hr IV .Q24H [facility] Rx#: [id number] Norepinephrine 4 mg In 99.330 35.036 Sodium Chloride 0.9% 250 ml @ 0.03 MCG/KG/MIN 11. 064 mls/hr IV .[id number] [facility] Rx#:[id number] Output: Urine 0 0 0 Other: Voiding Method Urinal Urinal Urinal # Voids 1 Weight 101.6 kg General: Lying in bed and appears lethargic. HENT: Supple Neck Neuro: Limited because of overall condition. Patient is drowsy but is awakeable to voice. Upon asking him his name he stated "are you asking me to make sure I am not crazy". Then later he was able to tell me his name and his 's name correctly. He is following simple commands but is slow performing it. Language is limited but does not appear aphasic. Left pupil is 3mm and reactive to light while right eye is opacified. Right eye is legally blind while left is VFF to confrontation. EOM intact and no nystagmus. Right peripheral facial weakness. Hypophonia but no dysarthria. Motor: Strength is limited but lifting bilateral uppers above gravity and lifting right lower above gravity. No movement in left lower extremity which is old. Has significant edema in lowers (left > right). Results - Laboratory Findings CBC and BMP: 05/14/23 12:44 05/14/23 12:44 Abnormal Lab Findings: Abnormal Labs 05/12/23 05/12/23 05/12/23 12:27 12:27 12:27 WBC RBC Hgb Hct RDW Plt Count Neutrophils # Lymphocytes # Retic Count Sodium 127 L Potassium Chloride 91 L BUN 60 H Creatinine 5.58 H Glucose 147 H POC Glucose (mg/dL) Phosphorus 6.7 H Iron % Saturation Erythropoietin ALT 61 H Total Protein 4.7 L Albumin 2.7 L TSH 6.720 H Crossmatch 05/12/23 05/12/23 05/12/23 12:37 16:25 17:12 WBC 1.2 L* RBC 2.03 L Hgb 5.6 L* Hct 17.8 L* RDW 20.0 H Plt Count 62 L D Neutrophils # 0.9 L Lymphocytes # 0.1 L Retic Count Sodium Potassium Chloride BUN Creatinine Glucose POC Glucose (mg/dL) 227 H Phosphorus Iron % Saturation Erythropoietin ALT Total Protein Albumin TSH Crossmatch See Detail 05/12/23 05/13/23 05/13/23 21:03 04:04 04:04 WBC RBC 2.76 L Hgb 7.6 L D Hct 23.5 L RDW 19.9 H Plt Count 78 L Neutrophils # Lymphocytes # 0.2 L Retic Count Sodium 125 L Potassium 5.7 H Chloride 91 L BUN 65 H Creatinine 5.03 H Glucose 154 H POC Glucose (mg/dL) 243 H Phosphorus 6.8 H Iron % Saturation Erythropoietin ALT 68 H Total Protein 5.1 L Albumin 2.8 L TSH Crossmatch 05/13/23 05/13/23 05/13/23 09:34 09:34 09:34 WBC RBC 2.63 L Hgb 7.3 L Hct 22.6 L RDW 20.5 H Plt Count 81 L Neutrophils # Lymphocytes # Retic Count 3.5 H Sodium Potassium 5.5 H Chloride BUN Creatinine Glucose POC Glucose (mg/dL) Phosphorus Iron 334 H % Saturation 85.42 H Erythropoietin 335.86 H ALT Total Protein Albumin TSH Crossmatch 05/13/23 05/13/23 05/13/23 12:22 12:22 18:03 WBC 3.7 L RBC 2.59 L 2.78 L Hgb 7.2 L 7.7 L Hct 22.1 L 23.6 L RDW 20.3 H 20.3 H Plt Count 77 L 81 L Neutrophils # Lymphocytes # Retic Count Sodium 129 L Potassium Chloride 94 L BUN 64 H Creatinine 5.39 H Glucose 64 L POC Glucose (mg/dL) Phosphorus Iron % Saturation Erythropoietin ALT Total Protein Albumin TSH Crossmatch 05/13/23 05/14/23 05/14/23 20:20 04:24 04:24 WBC RBC 2.62 L Hgb 7.2 L Hct 22.6 L RDW 20.7 H Plt Count 86 L Neutrophils # Lymphocytes # 0.2 L Retic Count Sodium 127 L Potassium 5.3 H Chloride 93 L BUN 67 H Creatinine 5.13 H Glucose 103 H POC Glucose (mg/dL) 117 H Phosphorus 6.1 H Iron % Saturation Erythropoietin ALT Total Protein Albumin TSH Crossmatch 05/14/23 05/14/23 05/14/23 06:36 12:44 12:44 WBC 3.1 L RBC 2.19 L Hgb 6.3 L* Hct 19.0 L* RDW 20.9 H Plt Count 64 L Neutrophils # Lymphocytes # Retic Count Sodium 128 L Potassium Chloride 95 L BUN 67 H Creatinine 5.38 H Glucose POC Glucose (mg/dL) 112 H Phosphorus Iron % Saturation Erythropoietin ALT Total Protein Albumin TSH Crossmatch Assessment and Plan Assessment: This is a 72-year-old gentleman with multiple medical issues who presents because of "not acting right", fatigue, lethargy, progressive generalized weakness. He presents with bradycardia as low as 30's to 40's, has hypothermia, has pancytopenia. Altered mental status: Unknown exact cause but seems due to metabolic encephalopathy. Has pancytopenia rule out any underlying infection. Also rule out underlying seizure. 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 Keppra was discontinue at that time since had confusion. History of meningioma resection post leg leg weakness. On CT has encephalomalacia over the right parietal/frontal region. Per record, family believed patient had encephalitis at that time he was diagnosed with brain tumor possibly presumed 10 years ago History of right Arguelles's palsy History atrial fibrillation is on eliquis, coronary artery disease s/p stenting s/p CABG History of breast cancer s/p right mastectomy in 07/2022 and chemotherapy DM History of obstructive sleep apnea History of ESRD with peritoneal dialysis Legally blind on right that is chronic Hypertension History of DVT with IVC filter placement Dyslipidemia History of Severe arotic stenosis Plan: I ordered a 2.5 hour routine EEG which will be performed on 05/15/2023. I.D. is consulted. Recommend ruling out any underlying infection. Cannot perform LP since has thrombocytopenia. Will defer antibiotic/viral medication to I.D. Will defer the rest of medical management to primary and other specialist. Oncology team is on board. Patient overall condition is extremely guarded. The plan is discussed with patient's and daughter who are at bedside and ICU attending. Thank you for the consultation. Time with Patient: Greater than 30
[2023-05-14 16:23] LABS: Glucose,Whole Blood 135 mg/dL (70-110)
[2023-05-14] MEDS ORDERED: ACYCLOVIR SODIUM 450 MG in SODIUM CHLORIDE 0.9% 100 ML IVPB SCH (17:00)
[2023-05-14 18:56] LABS: Anisocytosis Slight; Hypochromasia Slight; MCH 26.7 pg (25.0-35.0); MCHC 31.4 g/dL (31.0-37.0); Mean Platelet Volume 10.8; Poikilocytosis Slight; RBC 4.71 m/uL (4.30-5.90); RDW 19.5 % (11.5-15.5); WBC 5.1 k/uL (3.8-10.6)
[2023-05-14 19:10] LABS: HGB 12.6 gm/dL (13.0-17.5); Platelet Count 60 k/uL (150-450)
[2023-05-14 20:30] LABS: Glucose,Whole Blood 109 mg/dL (70-110)
[2023-05-14] MEDS: INSULIN DETEMIR (LEVEMIR) 100 UNIT/ML SYR SQ SCH (20:42)
[2023-05-14] MEDS: PRAVASTATIN SODIUM 40 MG TAB PO SCH (21:21)
[2023-05-15] MEDS: DIALYSIS (PERIT 2.5%) 2,000 ML 50 G/2,000 ML BAG INTRAPERIT SCH (00:10)
[2023-05-15] MEDS: DOPamine DRIP 800 MG in DEXTROSE/WATER 1 250ML.BAG IV SCH (00:19)
[2023-05-15] MEDS: NOREPINEPHRINE 4 MG in SODIUM CHLORIDE 0.9% 250 ML IV SCH (00:19)
[2023-05-15 05:56] LABS: African American GFR (CKD) 11 (>60 ml/min/1.73 sqM); Anion Gap 8 mmol/L; Blood Urea Nitrogen 67 mg/dL (9-20); C Reactive Protein 0.7 mg/dL (<1.0); Calcium 8.6 mg/dL (8.4-10.2); Carbon Dioxide 26 mmol/L (22-30); Chloride 94 mmol/L (98-107); Glucose 101 mg/dL (74-99); Non-African American GFR(CKD) 9 (>60 ml/min/1.73 sqM); Potassium 4.5 mmol/L (3.5-5.1); Sodium 128 mmol/L (137-145)
[2023-05-15] MEDS: DIALYSIS (PERIT 1.5%) 2,000 ML 30 G/2,000 ML BAG INTRAPERIT SCH (06:03)
[2023-05-15 06:41] LABS: Glucose,Whole Blood 125 mg/dL (70-110)
[2023-05-15 06:46] LABS: Anisocytosis Moderate; Basophils % (A) 0 %; Eosinophils % (A) 1 %; Hypochromasia Moderate; Lymphocytes # (A) 0.2 k/uL (1.0-4.8); Lymphocytes % (A) 8 %; MCH 27.5 pg (25.0-35.0); MCHC 32.2 g/dL (31.0-37.0); MCV 85.2 fL (80.0-100.0); Mean Platelet Volume 9.1; Monocytes # (A) 0.2 k/uL (0-1.0); Monocytes % (A) 8 %; Neutrophils # (A) 2.3 k/uL (1.3-7.7); Neutrophils % (A) 81 %; Poikilocytosis Slight; RBC 2.46 m/uL (4.30-5.90); RDW 20.5 % (11.5-15.5); WBC 2.9 k/uL (3.8-10.6)
[2023-05-15 06:49] LABS: HGB 6.8 gm/dL (13.0-17.5); Platelet Count 78 k/uL (150-450)
--- NOTE | 2023-05-15 07:34 | P.PN ---
Subjective Progress Note Date: 05/15/23 PROGRESS NOTE The patient is a 72-year-old male with a known history of CAD, status post CABG, prior history of atrial fibrillation, end-stage renal disease on peritoneal dialysis, diabetes who presented because of progressive fatigue and weakness and bradycardia. In the emergency room he was noted to be bradycardic. The EKGs available to me shows atrial fibrillation with probable junctional rhythm at times with a rate in the 30-40. He has underwent CABG in 2004, his left ventricle systolic function has been preserved. He has chronic right-sided effusion. He has a prior history of breast cancer and has received chemotherapy. He also has a history of [id number] aortic stenosis. He denies any chest discomfort but he has been feeling progressively more fatigued with lack of energy over the last week or so. According to his his speech was not as good the last few days. He has no nausea or vomiting. His activity is very limited following encephalitis and surgery. He was started on IV dopamine in the emergency room with improvement in his rate. His blood pressure is on the low side but stable. He has a history of hypertension, hyperlipidemia and diabetes mellitus. He was noted to be severely anemic with a hemoglobin of 5.6 and evidence of pancytopenia. His troponin was less than 0.012. His left ventricle systolic function in the past has been preserved. May 13 The patient remained stable, he continues to be on IV dopamine. He received transfusion yesterday. His numbers are better today. He is receiving peritoneal dialysis. He continues to be in junctional rhythm. There is no evidence of long pauses or ventricular ectopic activity. His blood pressure is stable. He denies any chest discomfort, dizziness or palpitations. According to him he feels better. May 14: The patient is awake and alert, he appears to be in sinus mechanism with first- degree AV block. Yesterday had an episode of bradycardia and hypotension. After discussion with the she does not want to proceed with permanent pacemaker implantation if indicated. He continues to be on IV dopamine. His echocardiogram showed a normal systolic function with moderate severe aortic stenosis. There is no evidence of ventricular ectopic activity May 15: The patient is awake but confused. He is in sinus mechanism off dopamine and norepinephrine. He is receiving peritoneal dialysis. There is no evidence of atrial fibrillation or pauses. No ventricular ectopic activity. The family decided on CODE STATUS of DO NOT RESUSCITATE. Medications: Insulin, pravastatin 40 mg daily, IV dopamine PHYSICAL EXAMINATION: Blood pressure 113/50 heart rate 80, awake confused LUNGS: Clear to auscultation anteriorly HEART: Regular rate and rhythm, S1, S2. No S3. Systolic ejection murmur 3/6 at the base with a holosystolic murmur at the apex ABDOMEN: Soft, nontender, no organomegaly, dialysis catheter in place EXTREMETIES: +1-2 edema more on the left side LAB: WBC 2.9, hemoglobin 6.8, platelets 78, potassium 4.5, BUN 67, creatinine 5.53 IMPRESSION: 1. Bradycardia with junctional rhythm in a patient with known history of atrial fibrillation, off IV dopamine, the patient is back in sinus mechanism with first-degree block 2. Severe pancytopenia, etiology unclear, 3. Status post CABG 4. Aortic valve murmur consistent with aortic stenosis, moderate to severe 5. End-stage kidney disease 6. Hyperlipidemia 7. Diabetes mellitus 8. History of encephalitis and meningioma his left sided weakness PLAN: 1. Continue present therapy 2. Prognosis remains poor, patient is not a candidate for aggressive cardiac workup and that was discussed with the family yesterday. Objective - Vital Signs Vital signs: Vital Signs Temp 97.1 F L 05/15/23 06:00 Pulse 80 05/15/23 07:00 Resp 18 05/15/23 07:00 BP 113/43 05/15/23 07:00 Pulse Ox 99 05/15/23 07:00 FiO2 40 05/14/23 00:15 Intake & Output 05/14/23 05/15/23 05/15/23 18:59 06:59 18:59 Intake Total 625.798 160 Output Total 0 0 0 Balance 625.798 160 0 Weight 101.9 kg Intake: IV 290 120 Sodium Chloride 0.9% 1, 240 120 000 ml @ 20 mls/hr IV . Q24H [facility] Rx#:[id number] cefTRIAXone 1 gm In 50 Sodium Chloride 0.9% 50 ml @ 100 mls/hr IVPB Q24HR [facility] Rx#:[id number] Intake, IV Titration 49.798 40 Amount DOPamine DRIP 800 mg In 14.762 Dextrose/Water 1 250ml. bag @ 5 MCG/KG/MIN 9.075 mls/hr IV .Q24H [facility] Rx#: [id number] Norepinephrine 4 mg In 35.036 Sodium Chloride 0.9% 250 ml @ 0.03 MCG/KG/MIN 11. 064 mls/hr IV .[id number] [facility] Rx#:[id number] Sodium Chloride 0.9% 1, 40 000 ml @ 20 mls/hr IV . Q24H [facility] Rx#:[id number] Blood Product 286 Rc Pheresis 2 As3 Unit 286 [id number] Output: Urine 0 0 0 Other: Voiding Method Incontinent Incontinent CAPD # Voids 1 1 - Labs CBC & Chem 7: 05/15/23 05:28 05/15/23 05:20 Labs: Abnormal Lab Results - Last 24 Hours (Table) 05/12/23 05/13/23 05/13/23 Range/Units 16:25 09:34 09:34 WBC (3.8-10.6) k/uL RBC (4.30-5.90) m/uL Hgb (13.0-17.5) gm/dL Hct (39.0-53.0) % RDW (11.5-15.5) % Plt Count (150-450) k/uL Lymphocytes # (1.0-4.8) k/uL Sodium (137-145) mmol/L Chloride (98-107) mmol/L BUN (9-20) mg/dL Creatinine (0.66-1.25) mg/dL Glucose (74-99) mg/dL POC Glucose (mg/dL) (70-110) mg/dL Erythropoietin (2.00-30.00) mIU/mL RBC Folate 1,120 H (280 - 791) ng/mL Copper 311 L (665-1480) ug/L Crossmatch See Detail 05/13/23 05/14/23 05/14/23 Range/Units 09:34 12:44 12:44 WBC 3.1 L (3.8-10.6) k/uL RBC 2.19 L (4.30-5.90) m/uL Hgb 6.3 L* (13.0-17.5) gm/dL Hct 19.0 L* (39.0-53.0) % RDW 20.9 H (11.5-15.5) % Plt Count 64 L (150-450) k/uL Lymphocytes # (1.0-4.8) k/uL Sodium 128 L (137-145) mmol/L Chloride 95 L (98-107) mmol/L BUN 67 H (9-20) mg/dL Creatinine 5.38 H (0.66-1.25) mg/dL Glucose (74-99) mg/dL POC Glucose (mg/dL) (70-110) mg/dL Erythropoietin 335.86 H (2.00-30.00) mIU/mL RBC Folate (280 - 791) ng/mL Copper ([id number]) ug/L Crossmatch 05/14/23 05/14/23 05/15/23 Range/Units 16:22 17:50 05:20 WBC (3.8-10.6) k/uL RBC (4.30-5.90) m/uL Hgb 12.6 L D (13.0-17.5) gm/dL Hct (39.0-53.0) % RDW 19.5 H (11.5-15.5) % Plt Count 60 L (150-450) k/uL Lymphocytes # (1.0-4.8) k/uL Sodium 128 L (137-145) mmol/L Chloride 94 L (98-107) mmol/L BUN 67 H (9-20) mg/dL Creatinine 5.53 H (0.66-1.25) mg/dL Glucose 101 H (74-99) mg/dL POC Glucose (mg/dL) 135 H (70-110) mg/dL Erythropoietin (2.00-30.00) mIU/mL RBC Folate (280 - 791) ng/mL Copper ([phone]) ug/L Crossmatch 05/15/23 05/15/23 Range/Units 05:28 06:41 WBC 2.9 L (3.8-10.6) k/uL RBC 2.46 L (4.30-5.90) m/uL Hgb 6.8 L* D (13.0-17.5) gm/dL Hct 21.0 L (39.0-53.0) % RDW 20.5 H (11.5-15.5) % Plt Count 78 L (150-450) k/uL Lymphocytes # 0.2 L (1.0-4.8) k/uL Sodium (137-145) mmol/L Chloride (98-107) mmol/L BUN (9-20) mg/dL Creatinine (0.66-1.25) mg/dL Glucose (74-99) mg/dL POC Glucose (mg/dL) 125 H (70-110) mg/dL Erythropoietin (2.00-30.00) mIU/mL RBC Folate (280 - 791) ng/mL Copper ([phone]) ug/L Crossmatch Microbiology - Last 24 Hours (Table) 05/13/23 09:34 Blood Culture - Preliminary Blood
[2023-05-15 07:46] LABS: Methylmalonic Acid 0.52 umol/L (<0.40)
[2023-05-15] MEDS ORDERED: HALOPERIDOL LACTATE 5 MG/ML 1 ML VIAL IVP PRN (08:44)
[2023-05-15] MEDS: PANTOPRAZOLE 40 MG/10 ML VIAL IVP SCH (09:39)
[2023-05-15] MEDS: SODIUM CHLORIDE 0.9% 1,000 ML IV SCH (09:40)
--- NOTE | 2023-05-15 10:22 | P.PN ---
Subjective Patient is seen for follow-up for end-stage renal disease. Currently maintained on peritoneal dialysis. Patient is tolerating dialysis well. Admitted with bradycardia and status post dopamine. Potassium was mildly elevated at 5.5 and has decreased now. Patient is currently off of dopamine. Hemoglobin has been low with significant drop again this morning at 6.8 g/dL. No active bleeding noted. Hospice care was discussed this morning. Objective - Vital Signs Vital signs: Vital Signs Temp 97.1 F L 05/15/23 06:00 Pulse 80 05/15/23 07:00 Resp 16 05/15/23 07:55 BP 113/43 05/15/23 07:00 Pulse Ox 99 05/15/23 07:00 FiO2 40 05/14/23 00:15 Intake & Output 05/14/23 05/15/23 05/15/23 18:59 06:59 18:59 Intake Total 625.798 160 20 Output Total 0 0 0 Balance 625.798 160 20 Weight 101.9 kg Intake: IV 290 120 20 Sodium Chloride 0.9% 1, 240 120 20 000 ml @ 20 mls/hr IV . Q24H [facility] Rx#:[id number] cefTRIAXone 1 gm In 50 Sodium Chloride 0.9% 50 ml @ 100 mls/hr IVPB Q24HR [facility] Rx#:[id number] Intake, IV Titration 49.798 40 Amount DOPamine DRIP 800 mg In 14.762 Dextrose/Water 1 250ml. bag @ 5 MCG/KG/MIN 9.075 mls/hr IV .Q24H [facility] Rx#: [id number] Norepinephrine 4 mg In 35.036 Sodium Chloride 0.9% 250 ml @ 0.03 MCG/KG/MIN 11. 064 mls/hr IV .[id number] [facility] Rx#:[id number] Sodium Chloride 0.9% 1, 40 000 ml @ 20 mls/hr IV . Q24H [facility] Rx#:[id number] Blood Product 286 Rc Pheresis 2 As3 Unit 286 [id number] Output: Urine 0 0 0 Other: Voiding Method Incontinent Incontinent Incontinent CAPD # Voids 1 1 - Exam Patient is currently sleeping he has just received Haldol for agitation. Examination of the heart S1 and S2 Examination of the lungs bilateral breath sounds are heard with decreased breath sounds at the bases Abdomen is soft nontender Examination lower extremities shows trace edema bilaterally [employer] exam grossly intact - Labs CBC & Chem 7: 05/15/23 05:28 05/15/23 05:20 Labs: Abnormal Lab Results - Last 24 Hours (Table) 05/12/23 05/13/23 05/13/23 Range/Units 16:25 09:34 09:34 WBC (3.8-10.6) k/uL RBC (4.30-5.90) m/uL Hgb (13.0-17.5) gm/dL Hct (39.0-53.0) % RDW (11.5-15.5) % Plt Count (150-450) k/uL Lymphocytes # (1.0-4.8) k/uL Sodium (137-145) mmol/L Chloride (98-107) mmol/L BUN (9-20) mg/dL Creatinine (0.66-1.25) mg/dL Glucose (74-99) mg/dL POC Glucose (mg/dL) (70-110) mg/dL Erythropoietin (2.00-30.00) mIU/mL Methylmalonic Acid 0.52 H (<0.40) umol/L RBC Folate 1,120 H (280 - 791) ng/mL Copper 311 L (665-1480) ug/L Crossmatch See Detail 05/13/23 05/14/23 05/14/23 Range/Units 09:34 12:44 12:44 WBC 3.1 L (3.8-10.6) k/uL RBC 2.19 L (4.30-5.90) m/uL Hgb 6.3 L* (13.0-17.5) gm/dL Hct 19.0 L* (39.0-53.0) % RDW 20.9 H (11.5-15.5) % Plt Count 64 L (150-450) k/uL Lymphocytes # (1.0-4.8) k/uL Sodium 128 L (137-145) mmol/L Chloride 95 L (98-107) mmol/L BUN 67 H (9-20) mg/dL Creatinine 5.38 H (0.66-1.25) mg/dL Glucose (74-99) mg/dL POC Glucose (mg/dL) (70-110) mg/dL Erythropoietin 335.86 H (2.00-30.00) mIU/mL Methylmalonic Acid (<0.40) umol/L RBC Folate (280 - 791) ng/mL Copper ([id number]) ug/L Crossmatch 05/14/23 05/14/23 05/15/23 Range/Units 16:22 17:50 05:20 WBC (3.8-10.6) k/uL RBC (4.30-5.90) m/uL Hgb 12.6 L D (13.0-17.5) gm/dL Hct (39.0-53.0) % RDW 19.5 H (11.5-15.5) % Plt Count 60 L (150-450) k/uL Lymphocytes # (1.0-4.8) k/uL Sodium 128 L (137-145) mmol/L Chloride 94 L (98-107) mmol/L BUN 67 H (9-20) mg/dL Creatinine 5.53 H (0.66-1.25) mg/dL Glucose 101 H (74-99) mg/dL POC Glucose (mg/dL) 135 H (70-110) mg/dL Erythropoietin (2.00-30.00) mIU/mL Methylmalonic Acid (<0.40) umol/L RBC Folate (280 - 791) ng/mL Copper ([id number]) ug/L Crossmatch 05/15/23 05/15/23 Range/Units 05:28 06:41 WBC 2.9 L (3.8-10.6) k/uL RBC 2.46 L (4.30-5.90) m/uL Hgb 6.8 L* D (13.0-17.5) gm/dL Hct 21.0 L (39.0-53.0) % RDW 20.5 H (11.5-15.5) % Plt Count 78 L (150-450) k/uL Lymphocytes # 0.2 L (1.0-4.8) k/uL Sodium (137-145) mmol/L Chloride (98-107) mmol/L BUN (9-20) mg/dL Creatinine (0.66-1.25) mg/dL Glucose (74-99) mg/dL POC Glucose (mg/dL) 125 H (70-110) mg/dL Erythropoietin (2.00-30.00) mIU/mL Methylmalonic Acid (<0.40) umol/L RBC Folate (280 - 791) ng/mL Copper ([id number]) ug/L Crossmatch Microbiology - Last 24 Hours (Table) 05/13/23 09:34 Blood Culture - Preliminary Blood Assessment and Plan Assessment: 1. End-stage renal disease on peritoneal dialysis. Maintained on 2.5% solution alternating with 1.5% solution 2. Bradycardia with no significant hyperkalemia on initial presentation. Being considered for pacemaker placement. No beta blockers on board 3. Hypotension secondary to bradycardia, improved 4. Hyponatremia, appears mildly hypervolemic, expect improvement with continued dialysis and ultrafiltration 5. Anemia status post packed RBCs transfusion. Rule out GI bleed. 6. History of breast cancer status post mastectomy and chemotherapy Plan: I continue current PD exchanges Continue with Aranesp Overall prognosis is guarded
--- NOTE | 2023-05-15 10:50 | P.PN ---
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 Objective - Vital Signs Vital signs: Vital Signs Temp 97.1 F L 05/15/23 06:00 Pulse 80 05/15/23 07:00 Resp 16 05/15/23 07:55 BP 113/43 05/15/23 07:00 Pulse Ox 99 05/15/23 07:00 FiO2 40 05/14/23 00:15 Intake & Output 05/14/23 05/15/23 05/15/23 18:59 06:59 18:59 Intake Total 625.798 160 20 Output Total 0 0 0 Balance 625.798 160 20 Weight 101.9 kg Intake: IV 290 120 20 Sodium Chloride 0.9% 1, 240 120 20 000 ml @ 20 mls/hr IV . Q24H [facility] Rx#:[id number] cefTRIAXone 1 gm In 50 Sodium Chloride 0.9% 50 ml @ 100 mls/hr IVPB Q24HR [facility] Rx#:[id number] Intake, IV Titration 49.798 40 Amount DOPamine DRIP 800 mg In 14.762 Dextrose/Water 1 250ml. bag @ 5 MCG/KG/MIN 9.075 mls/hr IV .Q24H [facility] Rx#: [id number] Norepinephrine 4 mg In 35.036 Sodium Chloride 0.9% 250 ml @ 0.03 MCG/KG/MIN 11. 064 mls/hr IV .[id number] [facility] Rx#:[id number] Sodium Chloride 0.9% 1, 40 000 ml @ 20 mls/hr IV . Q24H [facility] Rx#:[id number] Blood Product 286 Rc Pheresis 2 As3 Unit 286 [id number] Output: Urine 0 0 0 Other: Voiding Method Incontinent Incontinent Incontinent CAPD # Voids 1 1 - Exam Neuro: Exam is limited because of his cooperation. Patient is drowsy but is awake to voice. He is not verbally responding or following commands. Right pupil is opacified which is old. Left pupil is about 3-4 mm at. Patient is tracking. He has right facial weakness is peripheral Some of the work-up during this hospital visit consisted of: Is hypothermic as low as 93.9F and currently 94.5F. Initial heart rate was in 30-40's but has improved hemoglobin is 7.6 and currently 6.3. Patient received red blood cell transfusion today and the repeated yesterday was 12.6 but today at 6.8. Initial wbc is 3.8 and currently 3.1K. Platelets 64K. Sodium is 127 and now 128 TSH: 6.720 and Free T4: 1.01 Phosphorus: 6.7 CT head is reported as no acute intracranial hemorrhage or midline shift. 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 No significant change from prior. I personally reviewed it and I feel it is more right parietal/frontal post- surgical changes that is old. - Labs CBC & Chem 7: 05/15/23 05:28 05/15/23 05:20 Labs: Abnormal Lab Results - Last 24 Hours (Table) 05/12/23 05/13/23 05/13/23 Range/Units 16:25 09:34 09:34 WBC (3.8-10.6) k/uL RBC (4.30-5.90) m/uL Hgb (13.0-17.5) gm/dL Hct (39.0-53.0) % RDW (11.5-15.5) % Plt Count (150-450) k/uL Lymphocytes # (1.0-4.8) k/uL Sodium (137-145) mmol/L Chloride (98-107) mmol/L BUN (9-20) mg/dL Creatinine (0.66-1.25) mg/dL Glucose (74-99) mg/dL POC Glucose (mg/dL) (70-110) mg/dL Erythropoietin (2.00-30.00) mIU/mL Methylmalonic Acid 0.52 H (<0.40) umol/L RBC Folate 1,120 H (280 - 791) ng/mL Copper 311 L (665-1480) ug/L Crossmatch See Detail 05/13/23 05/14/23 05/14/23 Range/Units 09:34 12:44 12:44 WBC 3.1 L (3.8-10.6) k/uL RBC 2.19 L (4.30-5.90) m/uL Hgb 6.3 L* (13.0-17.5) gm/dL Hct 19.0 L* (39.0-53.0) % RDW 20.9 H (11.5-15.5) % Plt Count 64 L (150-450) k/uL Lymphocytes # (1.0-4.8) k/uL Sodium 128 L (137-145) mmol/L Chloride 95 L (98-107) mmol/L BUN 67 H (9-20) mg/dL Creatinine 5.38 H (0.66-1.25) mg/dL Glucose (74-99) mg/dL POC Glucose (mg/dL) (70-110) mg/dL Erythropoietin 335.86 H (2.00-30.00) mIU/mL Methylmalonic Acid (<0.40) umol/L RBC Folate (280 - 791) ng/mL Copper ([id number]) ug/L Crossmatch 05/14/23 05/14/23 05/15/23 Range/Units 16:22 17:50 05:20 WBC (3.8-10.6) k/uL RBC (4.30-5.90) m/uL Hgb 12.6 L D (13.0-17.5) gm/dL Hct (39.0-53.0) % RDW 19.5 H (11.5-15.5) % Plt Count 60 L (150-450) k/uL Lymphocytes # (1.0-4.8) k/uL Sodium 128 L (137-145) mmol/L Chloride 94 L (98-107) mmol/L BUN 67 H (9-20) mg/dL Creatinine 5.53 H (0.66-1.25) mg/dL Glucose 101 H (74-99) mg/dL POC Glucose (mg/dL) 135 H (70-110) mg/dL Erythropoietin (2.00-30.00) mIU/mL Methylmalonic Acid (<0.40) umol/L RBC Folate (280 - 791) ng/mL Copper ([id number]) ug/L Crossmatch 05/15/23 05/15/23 Range/Units 05:28 06:41 WBC 2.9 L (3.8-10.6) k/uL RBC 2.46 L (4.30-5.90) m/uL Hgb 6.8 L* D (13.0-17.5) gm/dL Hct 21.0 L (39.0-53.0) % RDW 20.5 H (11.5-15.5) % Plt Count 78 L (150-450) k/uL Lymphocytes # 0.2 L (1.0-4.8) k/uL Sodium (137-145) mmol/L Chloride (98-107) mmol/L BUN (9-20) mg/dL Creatinine (0.66-1.25) mg/dL Glucose (74-99) mg/dL POC Glucose (mg/dL) 125 H (70-110) mg/dL Erythropoietin (2.00-30.00) mIU/mL Methylmalonic Acid (<0.40) umol/L RBC Folate (280 - 791) ng/mL Copper ([id number]) ug/L Crossmatch Microbiology - Last 24 Hours (Table) 05/13/23 09:34 Blood Culture - Preliminary Blood Assessment and Plan Assessment: This is a 72-year-old gentleman with multiple medical issues who presents because of "not acting right", fatigue, lethargy, progressive generalized weakness. He presents with bradycardia as low as 30's to 40's, has hypothermia, has pancytopenia. Altered mental status: Unknown exact cause but seems due to metabolic encephalopathy. Has pancytopenia rule out any underlying infection. Also rule out underlying seizure. 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 Keppra was discontinue at that time since had confusion. History of meningioma resection post leg leg weakness. 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 We'll try at a different time to perform the EEG. He was started on hold all 2 mg every 4 hours as needed for agitation and psychosis by ICU team. I.D. is consulted. Recommend ruling out any underlying infection. Cannot perform LP since has thrombocytopenia. Will defer antibiotic/viral medication to I.D. Will defer the rest of medical management to primary and other specialist. Oncology team is on board. Patient overall condition is extremely guarded. The plan is discussed with his ICU attending. Will continue to follow. Time with Patient: Less than 30
[2023-05-15 11:55] VITALS: BMI 31.3
[2023-05-15 12:01] VITALS: TEMP 96.3
--- NOTE | 2023-05-15 12:06 | P.PN ---
Subjective Progress Note Date: 05/15/23 Principal diagnosis: Symptomatic bradycardia with hypotension, pancytopenia and possible sepsis. I am seeing this patient in new consultation today 05/13/2023 in the intensive care unit for multiple medical issues. Patient is a 72-year-old white male with past medical history significant for atrial fibrillation anticoagulated on Eliquis, coronary artery disease with previous CABG and stenting, diabetes mellitus type 2, hyperlipidemia, hypertension, DVT, obstructive sleep apnea, end-stage renal disease with peritoneal dialysis, meningioma resection resulting in chronic left leg weakness, Arguelles's palsy with residual right-sided weakness, blind in his right eye, breast cancer status post chemotherapy and right-sided mastectomy July 2022. He had a recent hospital admission for suspected encephalitis Jan, 2023. Patient presented to the emergency room yesterday afternoon after his his noticed that he was not "acting right". He had slurred speech, generalized weakness, fatigue, lethargy. He's been progressively more weak over the last couple days. Denies any fevers, chills, myalgias, shortness of breath, cough, chest pain, abdominal pain, nausea or vomiting. Patient is technically a poor historian, and HPI is supplemented by his . On arrival to the emergency room, the patient was found to be bradycardic, with a heart rate of around 30-40 bpm. He was subsequently started on dopamine which is currently infusing at 2.5 mcg/kg/m. Heart rhythm is cu rrently junctional bradycardia at a rate of 54 bpm. Blood pressure is normotensive. He is currently sitting up in bed, on 2 L/m nasal cannula, in no acute distress. SpO2 is 98%. He is hypothermic, and has the warming blanket on him. He is also severely pancytopenic on arrival. No reported acute blood loss mentioned. CBC shows WBC count of 1.2, hemoglobin 5.6, hematocrit 17.8, and platelets 62,000. Patient is finishing his second unit of PRBC transfusion. BMP on arrival shows sodium 127, potassium 5, chloride 91, serum bicarbonate 23, BUN 60, creatinine 5.58, glucose 147. Troponin less than 0.012. TSH 6.7 and free T4 1. Normal saline is infusing at 20 ML's per hour. Patient's peritoneal dialysis has been restarted. Patient is currently sitting up in bed, on 2 L/m nasal cannula, in no acute distress. Chest x-ray shows pulmonary vascular congestion with a chronic moderate sized right-sided pleural effusion. No obvious acute infiltrates or evidence of pneumonia. No obvious infectious source identified. Patient's overall prognosis is guarded related to above- mentioned comorbidities. Patient will be monitored in the intensive care unit. Patient was reevaluated today on 05/14/2023, remains quite lethargic and encephalopathic, patient is confused, is at bedside, patient is requiring norepinephrine at 0.03 mcg/kg/m he is also requiring O2 at 2 L nasal cannula. Patient is now off dopamine but he is on norepinephrine. Remains on Rocephin empirically, cultures are pending, he had negative Doppler for DVT. CODE STATUS has been established by the admitting physician and as DO NOT RESUSCITATE CODE STATUS. Patient is being followed by many consultants including hematology/oncology, nephrology, and cardiology. Patient did not have any significant ultrafiltration with the last 2 exchanges, serum potassium is 5.3 hemoglobin is low may require a unit of packed RBCs. Today's hemoglobin is 6.3 done this afternoon hence I'm recommending a unit of packed RBCs to be given. Sodium remains at 128 basic metabolic profile otherwise is normal BUN is 67 creatinine 5.38. WBC count is 3.1. Chest x-ray on admission showed cardiomegaly and pulmonary vascular congestion with small to moderate right- sided pleural effusion consistent with fluid overload most likely related to his renal failure, not to mention the patient has severe aortic stenosis. Patient was seen and evaluated today on 05/15/2023, patient is extremely agitated, restless, refusing to be examined, and refusing to have any procedures done. I did recommend Haldol as needed for the patient gets more agitated. In the meantime family was noted to come later on to bedside, and seems to be agreeable to possibly consider hospice and comfort care measures. Patient is basically a failure to thrive. Clearly he has multiple comorbidities, patient is refusing to have EEG today, patient could not have lumbar puncture mostly because of his thrombocytopenia and it is almost impossible to do a lumbar puncture on this patient being that agitated. However in the family is agreeable to proceed with comfort care measures I think that would be more practical and reasonable. Hemoglobin today is noted to be 6.8, not recommending a blood transfusion at this point, however if it drifts down below 6.5 I believe the patient needs to be transfused. His sodium is 128. A 67 creatinine 5.53 patient is now back to sinus rhythm, and he is off norepinephrine, off dopamine. Objective - Vital Signs Vital signs: Vital Signs Temp 97.1 F L 05/15/23 06:00 Pulse 80 05/15/23 07:00 Resp 16 05/15/23 07:55 BP 113/43 05/15/23 07:00 Pulse Ox 99 05/15/23 07:00 FiO2 40 05/14/23 00:15 Intake & Output 05/14/23 05/15/23 05/15/23 18:59 06:59 18:59 Intake Total 625.798 160 80 Output Total 0 0 0 Balance 625.798 160 80 Weight 101.9 kg 101.9 kg Intake: IV 290 120 80 Sodium Chloride 0.9% 1, 240 120 80 000 ml @ 20 mls/hr IV . Q24H [facility] Rx#:[id number] cefTRIAXone 1 gm In 50 Sodium Chloride 0.9% 50 ml @ 100 mls/hr IVPB Q24HR [facility] Rx#:[id number] Intake, IV Titration 49.798 40 Amount DOPamine DRIP 800 mg In 14.762 Dextrose/Water 1 250ml. bag @ 5 MCG/KG/MIN 9.075 mls/hr IV .Q24H [facility] Rx#: [id number] Norepinephrine 4 mg In 35.036 Sodium Chloride 0.9% 250 ml @ 0.03 MCG/KG/MIN 11. 064 mls/hr IV .[id number] [facility] Rx#:[id number] Sodium Chloride 0.9% 1, 40 000 ml @ 20 mls/hr IV . Q24H [facility] Rx#:[id number] Blood Product 286 Rc Pheresis 2 As3 Unit 286 [id number] Output: Urine 0 0 0 Other: Voiding Method Incontinent Incontinent Incontinent CAPD # Voids 1 1 - Exam Patient is extremely agitated and restless, and could not be examined. - Labs CBC & Chem 7: 05/15/23 05:28 05/15/23 05:20 Labs: Abnormal Lab Results - Last 24 Hours (Table) 05/12/23 05/13/23 05/13/23 Range/Units 16:25 09:34 09:34 WBC (3.8-10.6) k/uL RBC (4.30-5.90) m/uL Hgb (13.0-17.5) gm/dL Hct (39.0-53.0) % RDW (11.5-15.5) % Plt Count (150-450) k/uL Lymphocytes # (1.0-4.8) k/uL Sodium (137-145) mmol/L Chloride (98-107) mmol/L BUN (9-20) mg/dL Creatinine (0.66-1.25) mg/dL Glucose (74-99) mg/dL POC Glucose (mg/dL) (70-110) mg/dL Erythropoietin (2.00-30.00) mIU/mL Methylmalonic Acid 0.52 H (<0.40) umol/L RBC Folate 1,120 H (280 - 791) ng/mL Copper 311 L (665-1480) ug/L Crossmatch See Detail 05/13/23 05/14/23 05/14/23 Range/Units 09:34 12:44 12:44 WBC 3.1 L (3.8-10.6) k/uL RBC 2.19 L (4.30-5.90) m/uL Hgb 6.3 L* (13.0-17.5) gm/dL Hct 19.0 L* (39.0-53.0) % RDW 20.9 H (11.5-15.5) % Plt Count 64 L (150-450) k/uL Lymphocytes # (1.0-4.8) k/uL Sodium 128 L (137-145) mmol/L Chloride 95 L (98-107) mmol/L BUN 67 H (9-20) mg/dL Creatinine 5.38 H (0.66-1.25) mg/dL Glucose (74-99) mg/dL POC Glucose (mg/dL) (70-110) mg/dL Erythropoietin 335.86 H (2.00-30.00) mIU/mL Methylmalonic Acid (<0.40) umol/L RBC Folate (280 - 791) ng/mL Copper ([id number]) ug/L Crossmatch 05/14/23 05/14/23 05/15/23 Range/Units 16:22 17:50 05:20 WBC (3.8-10.6) k/uL RBC (4.30-5.90) m/uL Hgb 12.6 L D (13.0-17.5) gm/dL Hct (39.0-53.0) % RDW 19.5 H (11.5-15.5) % Plt Count 60 L (150-450) k/uL Lymphocytes # (1.0-4.8) k/uL Sodium 128 L (137-145) mmol/L Chloride 94 L (98-107) mmol/L BUN 67 H (9-20) mg/dL Creatinine 5.53 H (0.66-1.25) mg/dL Glucose 101 H (74-99) mg/dL POC Glucose (mg/dL) 135 H (70-110) mg/dL Erythropoietin (2.00-30.00) mIU/mL Methylmalonic Acid (<0.40) umol/L RBC Folate (280 - 791) ng/mL Copper ([id number]) ug/L Crossmatch 05/15/23 05/15/23 Range/Units 05:28 06:41 WBC 2.9 L (3.8-10.6) k/uL RBC 2.46 L (4.30-5.90) m/uL Hgb 6.8 L* D (13.0-17.5) gm/dL Hct 21.0 L (39.0-53.0) % RDW 20.5 H (11.5-15.5) % Plt Count 78 L (150-450) k/uL Lymphocytes # 0.2 L (1.0-4.8) k/uL Sodium (137-145) mmol/L Chloride (98-107) mmol/L BUN (9-20) mg/dL Creatinine (0.66-1.25) mg/dL Glucose (74-99) mg/dL POC Glucose (mg/dL) 125 H (70-110) mg/dL Erythropoietin (2.00-30.00) mIU/mL Methylmalonic Acid (<0.40) umol/L RBC Folate (280 - 791) ng/mL Copper ([id number]) ug/L Crossmatch Microbiology - Last 24 Hours (Table) 05/13/23 09:34 Blood Culture - Preliminary Blood Assessment and Plan Assessment: Impression: Suspect ICU psychosis/delirium Symptomatic bradycardia with hypotension, resolved Acute metabolic toxic encephalopathy with altered mental status Moderate right-sided pleural effusion Chronic renal failure, on peritoneal dialysis Pancytopenia with severe anemia thrombocytopenia and leukopenia related to myelodysplastic syndrome Coronary artery disease and previous CABG Severe aortic stenosis Benign essential hypertension Dyslipidemia Type 2 diabetes with diabetic nephropathy Benign prostatic hyperplasia Chronic gout History of DVT and previous IVC filter placement Diabetic polyneuropathy History of meningioma with left-sided weakness Recommendation: Continue present supportive care measures Family was updated on his condition, inclined to consider comfort care measures consider hospice and comfort care will continue to follow Time with Patient: Less than 30
[2023-05-15 12:46] VITALS: BP 113/52; PULSE 73; RESP 14
--- NOTE | 2023-05-15 14:51 | P.PN ---
Subjective Progress Note Date: 05/15/23 Principal diagnosis: weakness, bradycardia In f/u today pt family at bedside, considering hospice as pt overall condition is not improving. Objective - Vital Signs Vital signs: Vital Signs Temp 96.3 F L 05/15/23 08:00 Pulse 73 05/15/23 12:30 Resp 14 05/15/23 12:30 BP 113/52 05/15/23 12:30 Pulse Ox 99 05/15/23 12:30 FiO2 40 05/14/23 00:15 Intake & Output 05/14/23 05/15/23 05/15/23 18:59 06:59 18:59 Intake Total 625.798 160 100 Output Total 0 0 0 Balance 625.798 160 100 Weight 101.9 kg 101.9 kg Intake: IV 290 120 100 Sodium Chloride 0.9% 1, 240 120 100 000 ml @ 20 mls/hr IV . Q24H [facility]ENN[facility]I Rx#:[id number] cefTRIAXone 1 gm In 50 Sodium Chloride 0.9% 50 ml @ 100 mls/hr IVPB Q24HR KENNEDI Rx#:[id number] Intake, IV Titration 49.798 40 Amount DOPamine DRIP 800 mg In 14.762 Dextrose/Water 1 250ml. bag @ 5 MCG/KG/MIN 9.075 mls/hr IV .Q24H KENNEDI Rx#: [id number] Norepinephrine 4 mg In 35.036 Sodium Chloride 0.9% 250 ml @ 0.03 MCG/KG/MIN 11. 064 mls/hr IV .[id number] [facility]ENNEDI Rx#:[id number] Sodium Chloride 0.9% 1, 40 000 ml @ 20 mls/hr IV . Q24H KENNEDI Rx#:[id number] Blood Product 286 Rc Pheresis 2 As3 Unit 286 [id number] Output: Urine 0 0 0 Other: Voiding Method Incontinent Incontinent Incontinent CAPD # Voids 1 1 - Exam family discussion, pt laying in bed, NAD, no arousing pt due to agitation - Labs CBC & Chem 7: 05/15/23 05:28 05/15/23 05:20 Labs: Abnormal Lab Results - Last 24 Hours (Table) 05/12/23 05/13/23 05/13/23 Range/Units 16:25 09:34 09:34 WBC (3.8-10.6) k/uL RBC (4.30-5.90) m/uL Hgb (13.0-17.5) gm/dL Hct (39.0-53.0) % RDW (11.5-15.5) % Plt Count (150-450) k/uL Lymphocytes # (1.0-4.8) k/uL Sodium (137-145) mmol/L Chloride (98-107) mmol/L BUN (9-20) mg/dL Creatinine (0.66-1.25) mg/dL Glucose (74-99) mg/dL POC Glucose (mg/dL) (70-110) mg/dL Methylmalonic Acid 0.52 H (<0.40) umol/L RBC Folate 1,120 H (280 - 791) ng/mL Copper 311 L (665-1480) ug/L Crossmatch See Detail 05/14/23 05/14/23 05/14/23 Range/Units 12:44 12:44 16:22 WBC 3.1 L (3.8-10.6) k/uL RBC 2.19 L (4.30-5.90) m/uL Hgb 6.3 L* (13.0-17.5) gm/dL Hct 19.0 L* (39.0-53.0) % RDW 20.9 H (11.5-15.5) % Plt Count 64 L (150-450) k/uL Lymphocytes # (1.0-4.8) k/uL Sodium 128 L (137-145) mmol/L Chloride 95 L (98-107) mmol/L BUN 67 H (9-20) mg/dL Creatinine 5.38 H (0.66-1.25) mg/dL Glucose (74-99) mg/dL POC Glucose (mg/dL) 135 H (70-110) mg/dL Methylmalonic Acid (<0.40) umol/L RBC Folate (280 - 791) ng/mL Copper (665-1480) ug/L Crossmatch 05/14/23 05/15/23 05/15/23 Range/Units 17:50 05:20 05:28 WBC 2.9 L (3.8-10.6) k/uL RBC 2.46 L (4.30-5.90) m/uL Hgb 12.6 L D 6.8 L* D (13.0-17.5) gm/dL Hct 21.0 L (39.0-53.0) % RDW 19.5 H 20.5 H (11.5-15.5) % Plt Count 60 L 78 L (150-450) k/uL Lymphocytes # 0.2 L (1.0-4.8) k/uL Sodium 128 L (137-145) mmol/L Chloride 94 L (98-107) mmol/L BUN 67 H (9-20) mg/dL Creatinine 5.53 H (0.66-1.25) mg/dL Glucose 101 H (74-99) mg/dL POC Glucose (mg/dL) (70-110) mg/dL Methylmalonic Acid (<0.40) umol/L RBC Folate (280 - 791) ng/mL Copper ([phone]) ug/L Crossmatch 05/15/23 Range/Units 06:41 WBC (3.8-10.6) k/uL RBC (4.30-5.90) m/uL Hgb (13.0-17.5) gm/dL Hct (39.0-53.0) % RDW (11.5-15.5) % Plt Count (150-450) k/uL Lymphocytes # (1.0-4.8) k/uL Sodium (137-145) mmol/L Chloride (98-107) mmol/L BUN (9-20) mg/dL Creatinine (0.66-1.25) mg/dL Glucose (74-99) mg/dL POC Glucose (mg/dL) 125 H (70-110) mg/dL Methylmalonic Acid (<0.40) umol/L RBC Folate (280 - 791) ng/mL Copper ([phone]) ug/L Crossmatch Microbiology - Last 24 Hours (Table) 05/13/23 09:34 Blood Culture - Preliminary Blood Assessment and Plan (1) Pancytopenia Status: Acute Priority: High Code(s): D61.818 - OTHER PANCYTOPENIA SNOMED Code(s): 919554296 (2) Breast cancer in male Status: Chronic Priority: Low Code(s): C50.929 - MALIGNANT NEOPLASM OF UNSP SITE OF UNSPECIFIED MALE BREAST SNOMED Code(s): 260849407 Plan: Weakness, bradycardia -Cardiology has assessed the patient, medical mgmt, no recs for any more aggressive treatment Pancytopenia -Anemia, chronic, multifactorial. Present since at least 2013. Patient has chronic kidney disease, currently on dialysis. Status post 2 units PRBCs with appropriate increase in hemoglobin. Transfuse for hemoglobin less than 7. Iron studies ran on post transfusion blood. Would expect ferritin to be higher in CKD. No iron right now. Recheck iron studies after acute condition resolved. -HELENA started by Nephrology. -Thrombocytopenia intermittently low over the last year. Current admit worst it has been. Platelets 78,000 today. Patient's platelet counts are currently adequate for DVT prophylaxis. -WBC 2.9 today, ANC 2.3. No G-CSF necessary. -Likely counts fell below normal because of stress on the bone marrow from acute condition, history of chemotherapy for breast cancer. Male breast cancer history -ER/NH/HER-2 positive breast cancer -Status post treatment and mastectomy July 2022 -Patient is current on his follow-up -Tumor markers are WNL -Ofc chart med list, last updated at pt visit in December. Pt on exemestane 25mg PO QD. On hold. -Restaging PET scan 06/09 was scheduled and f/u with Dr. Catie Cameron early Jun -MRI of the brain was ordered for unusual patient behavior, unfortunately pt has not been able to have done due to agitation, confusion. Left lower extremity swelling -Worse than the right lower extremity -Doppler neg for DVT -DVT prophylaxis started but held because of anemia Spoke with patient's and family at the bedside. Patient's medical condition is a complicated one. Do Not think patient's condition is a result of cancer though. Patient and family have met with Critical Care team and Cardiology. They are considering comfort measures/hospice. This was not an unreasonable course of care to pursue. They are discussing and will make final decision.
[2023-05-15 18:08] LABS: HSV I IgG Interp POSITIVE; HSV II IgG Interp Negative (Negative)
--- NOTE | 2023-05-19 15:23 | CDI ---
Documentation Clarification Form Date: 05/19/2023 02:50:02 PM From: Maggie Betancur Admit Date: 05/12/2023 02:45:00 PM Patient Name: Shahab Guzman Visit Number: [id number] Discharge Date: 05/15/2023 12:48:00 PM ATTENTION: The Clinical Documentation Specialists (CDI) and [facility] Coding Staff appreciate your assistance in clarifying documentation. Please respond to the clarification below the line at the bottom and electronically sign. The CDI & [facility] Coding staff will review the response and follow-up if needed. Please note: Queries are made part of the Legal Health Record. If you have any questions, please contact the author of this message via ITS. Dr. Rosalino Loving The patient has possible Sepsis documented in progress notes 05/14 and ut not subsequent documentation. Based on this information and the findings below, please clarify if this is clinically appropriate for this patient? History/Risk Factors: patient is a 72 year old male who presented for persistent severe weakness. Patient is a poor historian and is somnolent to the history of present illness. Has a history of AFIB, A Flutter, CAD, Breast CA, DM, DVT, GERD, HLD, HTN, [place], End Stage Kidney disease on dialysis, CHF, and KULWINDER. Clinical Indicators: presented today with a severely low hemoglobin and persistent bradycardia with soft blood pressures and CHF. Required PRBC transfusion, Dopamine, and peritoneal dialysis. WBC 1.2, RBC 2.03, HGB 5.6 HCT 17.8 Plt count 62 Sodium: 127, Chloride 91, BUN 60, CREAT 5.58, Glucose 147, phosphorus 6.7, ALT 61 Blood cultures: no growth Vitals signs: 05/12/23 @ 12:24pm: Temp 98.2, Pulse 42, RR 20, BP 114/44, O2: 97 on room air Vital signs 05/12/23 @ 21:00pm: Temp 92.1, Pulse 51, RR 17, BP 98/41, O2: 98 on room air Treatment: IV dopamine switched to Norepinephrine, maintained on peritoneal dialysis, 3 Units PRBC, started on empiric antibiotics, cultures of blood and peritoneal fluid were ordered. ID Consult: patient was evaluated 05/15 and is extremely agitated, restless, and refusing to be examined. Patient is a DNR and family has agreed to place the patient on hospice. Cardio Consult: Progressive fatigue with bradycardia and severe anemia. He may require permanent pacemaker. Has a history of Afib and has been anticoagulated Antibiotics: remained on Rocephine empirically Is there an additional diagnosis that is clinically appropriate for this patient? [ ] Sepsis, present on admission [ ] Sepsis, developed during stay, not present on admission [ ] Sepsis ruled out [ ] Severe Sepsis with organ failure [ ] Septic Shock [ ] SIRS, without underlying infectious process [ ] Other, please specify [ x] Unable to determine SIRS Criteria: 2 or more of the following may indicate SIRS Temperature < 96.8F (36C) or > 101.0F (38.3C) Heart Rate > 90 bpm Respiratory Rate > 20 breaths/min or PaCO2 < 32 mmHg White Blood Cell Count > 12,000 or < 4,000 cells/mm3 or > 10% bands MTDD
--- NOTE | 2023-05-20 12:59 | CDI ---
Documentation Clarification Form Date: 05/20/2023 12:41:34 PM From: Maggie Betancur Admit Date: 05/12/2023 02:45:00 PM Patient Name: Shahab Guzman Visit Number: [id number] Discharge Date: 05/15/2023 12:48:00 PM ATTENTION: The Clinical Documentation Specialists (CDI) and [facility] Coding Staff appreciate your assistance in clarifying documentation. Please respond to the clarification below the line at the bottom and electronically sign. The CDI & [facility] Coding staff will review the response and follow-up if needed. Please note: Queries are made part of the Legal Health Record. If you have any questions, please contact the author of this message via ITS. Dr. Pablo Jon The patient has possible Sepsis documented in progress note 05/14 and 05/[address] Loving, but not subsequent documentation. Based on this information and the findings below, please clarify if this is clinically appropriate for this patient. History/Risk Factors: patient is a 72 year old male who presented for persistent severe weakness. Patient is a poor historian and is somnolent. Has a history of AFIB, Aflutter, CAD, breast CA, DM, DVT, GERD, HLD, HTN, MA, end stage kidney disease on dialysis, CHF, and KULWINDER. Clinical Indicators: presented today with severely low hemoglobin and persistent bradycardia with soft blood pressures and CHF. Required PRBC transfusion, Dopamine, and peritoneal dialysis. WBC 1.2, RBC 2.03, HGB 5.6, HCT 17.8, plt count 62 Sodium 127, chloride 91 BUN 60 CREAT 5.58, glucose 147, phosphorus 6.7, ALT 61 Blood cultures: no growth Vital signs: 05/12/23 @ 12:24 pm Temp 98.2, Pulse 42, RR 20, BP 114/44, O2 97 on room air Vital signs: 05/12/23 @ 21:00 pm Temp 92.1, Pulse 51, RR 17, BP 98/41, O2 98 on room air Treatment: IV dopamine switched to norepinephrine, maintained on peritoneal dialysis, 3 Units PRBC, started on empiric antibiotics, cultures of blood and peritoneal fluid were ordered. ID Consult: patient was evaluated 05/15 and is extremely agitated, restless, and refusing to be examined. Patient is a DNR and family has agreed to place the patient on hospice. Cardio Consult: progressive fatigue with bradycardia and severe anemia. He may require permanent pacemaker. Has a history of Afib and has been anticoagulated. Antibiotics: remained on Rocephin empirically Please clarify if Sepsis has been confirmed: [ ] Sepsis confirmed, Present on admission [ ] Sepsis confirmed, Not present on admission [ X] Sepsis Ruled out [ ] Severe sepsis with organ failure [ ] Septic Shock [ ] SIRS, without underlying infectious process [ ] Other condition, please specify [ ] Unable to determine MTDD
--- NOTE | 2023-05-23 11:57 | P.DS ---
Providers Date of admission: 05/12/23 14:45 Expected date of discharge: 05/16/23 Attending physician: Pablo Jon Consults: 05/12/23 14:42 Consult Physician Routine Consulting Provider: Yin Campos Consult Reason/Comments: known Do you want consulting provider notified?: Yes 05/12/23 14:53 Consult Physician Urgent Consulting Provider: Tyrell Herman Consult Reason/Comments: bradycardia, hx of CHF Do you want consulting provider notified?: Yes 05/12/23 16:13 Consult Physician Routine Consulting Provider: Rosalino Loving Consult Reason/Comments: icu Do you want consulting provider notified?: Yes 05/12/23 17:28 Consult Physician Routine Consulting Provider: Cheo Stacy Consult Reason/Comments: pancytopenia Do you want consulting provider notified?: Yes 05/14/23 12:18 Consult Physician Routine Consulting Provider: Mack Begum Consult Reason/Comments: ? Encephalitis Do you want consulting provider notified?: Yes 05/14/23 12:19 Consult Physician Routine Consulting Provider: Vanessa Ruiz Consult Reason/Comments: ? encephalitis Do you want consulting provider notified?: Yes Primary care physician: Pablo Jon Hospital Course: Discharge Diagnoses/ Summary: HISTORY OF PRESENT ILLNESS: this is a 72-year-old male with a previous medical history significant for hypertension and hypertensive cardiovascular disease with left ventricular hypertrophy, hyperlipidemia, diabetes mellitus type 2, with diabetic polyneuropathy, history of coronary artery disease status post coronary artery bypass graft x3 followed by stent, history of atrial fibrillation status post ablation on long-term eliquis, history of meningioma status post resection back in April 2013 with left-sided weakness, end-stage renal disease on peritoneal dialysis, history of anemia of chronic kidney disease, history of secondary hyperparathyroidism,history of breast cancer on the right side status post right mastectomy followed by chemotherapy, history of aortic valve stenosis, pat ient was getting weaker over the last few days prior to his admission, patient has not been eating or drinking very much, could not do his dialysis on Thursday on Thursday morning he was supposed to 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 Cameron, however the patient was unresponsive, so the ended up calling 911, bringing the patient to the emergency department at [facility], patient was bradycardic in the low 40s, he was found to have a significant anemia with a hemoglobin of 5.9, he was also pancytopenic with a white count of 1.7 platelet count of 79,000, patient was admitted to the hospital for evaluation had a go a guaiac stool negative, he was admitted to intensive care unit he was started on a dopamine drip, he was seen in consultation by cardiology who recommended to continue dopamine drip for now, monitor the patient for possible permanent pacemaker placement. Patient was admitted to the ICU, he was seen in consultation by pulmonary and critical care medicine, patient overall prognosis very guarded, this was discussed with his . 05/12: Patient remains in the intensive care unit. He continues on IV dopamine. The patient is followed closely by cardiology and pulmonary medicine. Oncology has evaluated the patient today for pancytopenia. Patient is status post 2 units of packed RBCs. Oncology ordered an MRI of the brain. Patient is followed by nephrology and continued on CAPD. Echocardiogram has been completed and report is pending. MRI of the brain and ultrasound of the lower extremities left-sided pending. Blood pressure 105/43, heart rate in the 50s, afebrile, pulse ox 99% on room air. Repeat blood work reveals WBC 3.7, hemoglobin 7.2, platelet count 77. Sodium 129, potassium 4.9, chloride 94, CO2 25, BUN 64 and creatinine 5.39. Blood sugar 64. *Around noon today, patient had an episode of unresponsiveness and vomiting for 2 minutes. He maintained a pulse and a blood pressure. Heart rate was 32, telemetry was a junctional bradycardia. He was given 1 amp of bicarb. Past with his . Also recommended that his children come into the hospital to see him as soon as possible. 05/13: Patient has been made no CODE STATUS. He remains in the intensive care unit. Patient continues to have mental status changes not improving in oncology as ordered. MRI of the brain. Nephrology continues CAPD. Cardiology is weaning IV dopamine off. Heart rate is running in the 70s, blood pressure 108/42. Pulse ox 94% on 2 L nasal cannula. A repeat blood work reveals WBC 4, hemoglobin 7.2, platelet count 86. Sodium 127, potassium 5.3, BUN 67, creatinine 5.1. Patient's continues to state that she does not want any aggressive workup. Venous ultrasound for the left lower extremity negative for DVT. Left lower extremity is chronically larger than the right. Echocardiogram reveals normal LV systolic function. Mild pulmonary hypertension. Mild mitral stenosis. Moderate to severe aortic stenosis. 05/15: Patient was signed on Hospice on the request of his Family as his prognosis is very poor and was admitted to inpatient hospice with [facility] and he was on Hospice on 05/16/2023 Discharge Diagnoses( summary) 1. Bradycardia in the form of junctional rhythm in a patient with a prior history of atrial fibrillation. 2. Metabolic encephalopathy likely related to bradycardia poor oral intake of fluid and the hyperkalemia. 3. Right-sided pleural effusion with compressive atelectasis . 4. Pancytopenia with severe anemia and thrombocytopenia and leukopenia as well. Likely related to myelodysplastic syndrome. 6. History of CAD post CABG as well as PCI and stent placement. 7. History of paroxysmal atrial fibrillation. 8. Hypertension and hypertensive cardiovascular disease. 9. Hyperlipidemia. 10. ESRD. 11. History of enlarged prostate. 12. Diabetes mellitus type 2. 13. Diabetic polyneuropathy. 14. History of DVT status post IVC filter placement 15. Chronic gout. 16. History of meningioma with left-sided weakness. Patient Condition at Discharge: Critical Plan - Discharge Summary Discharge Rx Participant: Yes New Discharge Prescriptions: No Action Tamsulosin HCl [Flomax] 0.4 mg PO BID amLODIPine [Norvasc] 5 mg PO BID Pravastatin Sodium [Pravachol] 40 mg PO HS Lidocaine-Prilocaine Cream [Emla Cream 2.5%/2.5%] 1 applic TOPICAL DAILY PRN PRN Reason: port access INSULIN ASPART (NovoLOG) [NovoLOG (formulary)] See Protocol SQ ACHS PRN PRN Reason: HIGH BLOOD SUGAR Insulin Glargine,Hum.rec.anlog [Lantus Solostar Pen] 35 units SQ HS Torsemide [Demadex] 20 mg PO BID Lactulose 10 gm PO DAILY PRN PRN Reason: Constipation Apixaban [Eliquis] 5 mg PO DAILY Pramipexole [Mirapex] 0.25 mg PO HS PRN PRN Reason: RESTLESS LEGS Furosemide [Lasix] 40 mg PO BID Ciclopirox Nail Lacquer 8% 1 applic TOPICAL DIRECTED Discharge Medication List Tamsulosin HCl [Flomax] 0.4 mg PO BID 06/19/15 [History] amLODIPine [Norvasc] 5 mg PO BID 07/09/16 [History] Pravastatin Sodium [Pravachol] 40 mg PO HS 03/21/21 [History] Lidocaine-Prilocaine Cream [Emla Cream 2.5%/2.5%] 1 applic TOPICAL DAILY PRN 06/03/22 [History] INSULIN ASPART (NovoLOG) [NovoLOG (formulary)] See Protocol SQ ACHS PRN 07/31/22 [History] Insulin Glargine,Hum.rec.anlog [Lantus Solostar Pen] 35 units SQ HS 09/17/22 [History] Torsemide [Demadex] 20 mg PO BID 09/17/22 [History] Apixaban [Eliquis] 5 mg PO DAILY 01/04/23 [History] Lactulose 10 gm PO DAILY PRN 01/04/23 [History] Ciclopirox Nail Lacquer 8% 1 applic TOPICAL DIRECTED 05/12/23 [History] Furosemide [Lasix] 40 mg PO BID 05/12/23 [History] Pramipexole [Mirapex] 0.25 mg PO HS PRN 05/12/23 [History] Follow up Appointment(s)/Referral(s): Pablo Jon MD [Primary Care Provider] - 1-2 days Armando Cameron MD [STAFF PHYSICIAN] - 06/16/23 1:30 pm Activity/Diet/Wound Care/Special Instructions: Restaging PET scan at [facility] 06/05/23 at 9 AM Discharge Disposition: DISCH TO [facility]
== END 2023-05-15 12:48 | disposition hospice, inpatient (51) | DRG 811 ==
LOC: EC 12:09 → 2SICU 14:45
PROVIDERS: ADMIT Internal Medicine; ATTEND Internal Medicine
PROC: 30233N1 Transfusion of Nonautologous Red Blood Cells into Peripheral Vein, Percutaneous Approach (ICD-10-PCS; principal; 2023-05-12)
PROC: 3E1M39Z Irrigation of Peritoneal Cavity using Dialysate, Percutaneous Approach (ICD-10-PCS; principal; 2023-05-12)
PROC: 3E033XZ Introduction of Vasopressor into Peripheral Vein, Percutaneous Approach (ICD-10-PCS; principal; 2023-05-12)
PROC: 05HD33Z Insertion of Infusion Device into Right Cephalic Vein, Percutaneous Approach (ICD-10-PCS; 2023-05-14 16:00)
DX: D46.9 Myelodysplastic syndrome, unspecified (principal); G92.8 Other toxic encephalopathy; J96.01 Acute respiratory failure with hypoxia; N18.6 End stage renal disease; I13.2 Hypertensive heart and chronic kidney disease with heart failure and with stage 5 chronic kidney disease, or end stage renal disease; N25.81 Secondary hyperparathyroidism of renal origin; N17.9 Acute kidney failure, unspecified; J98.11 Atelectasis; G81.94 Hemiplegia, unspecified affecting left nondominant side; D61.818 Other pancytopenia; E87.1 Hypo-osmolality and hyponatremia; C79.31 Secondary malignant neoplasm of brain; I50.32 Chronic diastolic (congestive) heart failure; R00.1 Bradycardia, unspecified; D63.1 Anemia in chronic kidney disease; R62.7 Adult failure to thrive; E66.9 Obesity, unspecified; E11.22 Type 2 diabetes mellitus with diabetic chronic kidney disease; I48.0 Paroxysmal atrial fibrillation; Z68.30 Body mass index [BMI] 30.0-30.9, adult; Z66 Do not resuscitate; Z51.5 Encounter for palliative care; T68.XXXA Hypothermia, initial encounter; N40.0 Benign prostatic hyperplasia without lower urinary tract symptoms; M1A.9XX0 Chronic gout, unspecified, without tophus (tophi); I35.0 Nonrheumatic aortic (valve) stenosis; I27.20 Pulmonary hypertension, unspecified; I25.10 Atherosclerotic heart disease of native coronary artery without angina pectoris; H54.61 Unqualified visual loss, right eye, normal vision left eye; G93.89 Other specified disorders of brain; G47.33 Obstructive sleep apnea (adult) (pediatric); I95.9 Hypotension, unspecified; F32.A Depression, unspecified; E87.5 Hyperkalemia; E78.5 Hyperlipidemia, unspecified; I44.0 Atrioventricular block, first degree; R45.1 Restlessness and agitation; E11.42 Type 2 diabetes mellitus with diabetic polyneuropathy; E03.8 Other specified hypothyroidism; M19.90 Unspecified osteoarthritis, unspecified site; Z99.2 Dependence on renal dialysis; Z79.4 Long term (current) use of insulin; Z95.828 Presence of other vascular implants and grafts; Z95.5 Presence of coronary angioplasty implant and graft; Z95.1 Presence of aortocoronary bypass graft; Z92.21 Personal history of antineoplastic chemotherapy; Z90.11 Acquired absence of right breast and nipple; Z86.718 Personal history of other venous thrombosis and embolism; Z86.61 Personal history of infections of the central nervous system; Z86.011 Personal history of benign neoplasm of the brain; Z85.3 Personal history of malignant neoplasm of breast; Z79.899 Other long term (current) drug therapy; Z79.01 Long term (current) use of anticoagulants; I25.2 Old myocardial infarction; Z28.310 Unvaccinated for COVID-19
CPT/HCPCS: 36410; 36415; 70450; 71045; 76937; 80048; 80053; 82272; 82525; 82607; 82668; 82728; 82747; 83540; 83550; 83735; 83921; 84100; 84132; 84439; 84443; 84484; 85025; 85027; 85045; 85610; 85730; 86140; 86300; 86694; 86695; 86696; 86850; 86900; 86901; 86920; 87040; 93005; 93306; 96374; 99285

== ENCOUNTER 2023-05-15 12:22 | Inpatient (IN) | payer MEDICAID ==
[2023-05-15] MEDS ORDERED: MORPHINE SULFATE 2 MG/ML SYRINGE IV PRN (12:28)
[2023-05-15] MEDS ORDERED: LORazepam 2 MG/ML INJ IV PRN (12:28)
[2023-05-15] MEDS ORDERED: ONDANSETRON 4 MG/2 ML VIAL IVP PRN (12:28)
[2023-05-15] MEDS ORDERED: MORPHINE SULFATE 4 MG/ML SYRINGE IV PRN (12:28)
[2023-05-15] MEDS ORDERED: ACETAMINOPHEN SUPPOSITORY 650 MG SUPP RECTAL PRN (12:28)
[2023-05-15] MEDS ORDERED: HALOPERIDOL LACTATE 5 MG/ML 1 ML VIAL IM PRN (12:28)
[2023-05-15] MEDS ORDERED: ATROPINE OPHTH SOLN 1% 5ML BTL SUBLINGUAL PRN (12:28)
[2023-05-15] MEDS ORDERED: SCOPOLAMINE 1 MG/72 HR PATCH TRANSDERM SCH (12:30)
[2023-05-15] MEDS: GLYCOPYRROLATE 0.2 MG/ML 2 ML VIAL IVP SCH ×2 (13:57→17:38)
[2023-05-15] MEDS: MORPHINE SULFATE (100 MG/2 ML) 100 MG in SODIUM CHLORIDE 0.9% 100 ML IV SCH (16:30)
[2023-05-16] MEDS: GLYCOPYRROLATE 0.2 MG/ML 2 ML VIAL IVP SCH ×3 (00:01→12:13)
[2023-05-16] MEDS: MORPHINE SULFATE (100 MG/2 ML) 100 MG in SODIUM CHLORIDE 0.9% 100 ML IV SCH (13:52)
== END 2023-05-16 15:10 | disposition expired | DRG 951 ==
LOC: 2SICU 12:56 → 5NMEDONC 16:07
PROVIDERS: ADMIT Internal Medicine; ATTEND Internal Medicine
DX: Z51.5 Encounter for palliative care (principal); Z66 Do not resuscitate; Z88.0 Allergy status to penicillin